=== PATIENT | female | born 1940 | race Caucasian/White ===

== ENCOUNTER 2022-04-18 20:51 | Emergency (ER) | payer OTHER ==
--- NOTE | 2022-04-18 21:54 | RAD REPORT ---
EXAM DESCRIPTION: RAD - Chest Single View - 04/18/2022 9:34 pm CLINICAL HISTORY: probable COVID COMPARISON: Two view chest 07/21/2020 TECHNIQUE: AP portable chest image was obtained 04/18/2022 9:34 pm . FINDINGS: Chronic interstitial lung disease is present. No focal mass or consolidation. Interstitial pattern is not substantially different from comparison. Heart and vasculature are normal. No measurable pleural effusion and no pneumothorax. No acute bony abnormality seen. No acute aortic findings suspected. IMPRESSION: No acute cardiopulmonary process. Chronic interstitial lung findings match comparison.
[2022-04-18 21:58] LABS: Absolute Lymphocytes (CBC) 1.5 K/uL (0.7-4.9); Hematocrit 41.7 % (36.0-45.0); Lymphocytes % 15.1 % (15.3-44.8); MCV 84.1 fL (80-100); RBC Red Blood Cell Count 4.96 M/uL (3.86-4.86)
[2022-04-18 22:16] LABS: Albumin 3.4 g/dL (3.4-5.0); Bilirubin Total 0.3 mg/dL (0.2-1.0); Potassium 3.3 mmol/L (3.5-5.1); Protein, Total 7.7 g/dL (6.4-8.2)
--- NOTE | 2022-04-18 23:52 | EDPHYS ---
Physician Documentation [facility] Name: Tara Gibson Age: 82 yrs Sex: Female : 1940 Arrival Date: 04/18/2022 Time: 20:52 Bed 4 Private MD: ED Physician Jose Rogers HPI: 04/18 21:21 This 82 yrs old Female presents to ER via EMS with complaints of rn nausea/vomiting/diarrhea. 21:21 The patient presents to the emergency department with nausea, vomiting, diarrhea. rn Onset: The symptoms/episode began/occurred 1 week(s) ago. Possible causes: sick contacts, by family. The symptoms are aggravated by nothing. The symptoms are alleviated by nothing. Associated signs and symptoms: Pertinent positives: diarrhea, fever, nausea, vomiting, Pertinent negatives: abdominal pain, GI bleeding. Severity of symptoms: At their worst the symptoms were moderate in the emergency department the symptoms are unchanged. The patient has not experienced similar symptoms in the past. The patient has not recently seen a physician. Pt reports thinks has COVID, family member recently here for COVID, now patient with nausea/vomiting/diarrhea, not able to keep anything down, + generalized weakness, no longer with fever. No sob. No chest pain.. Historical: - Home Meds: 21:14 amlodipine 10 mg tab 1 tab once daily [Active]; lisinopril-hydrochlorothiazide 10-12.5 kl mg Oral tab 1 tab once daily [Active]; metformin 500 mg Oral tab 1 tab 2 times per day [Active]; simvastatin 20 mg Oral tab 1 tab nightly [Active]; alprazolam 0.5 mg Oral tab 1 tab twice a day [Active]; Lorcet HD 10-325 mg Oral tab 1 tab every 6 hours [Active]; - PMHx: 21:14 Arthritis; Cancer, Breast; Diabetes - NIDDM; Back pain; High Cholesterol; Hypertension; kl - Immunization history:: Adult Immunizations up to date. - Social history:: Smoking status: Patient denies any tobacco usage or history of. - Family history:: not pertinent. - Hospitalizations: : No recent hospitalization is reported. ROS: 21:21 Constitutional: Negative for fever, chills, and weight loss, Eyes: Negative for injury, rn pain, redness, and discharge, ENT: Negative for injury, pain, and discharge, Neck: Negative for injury, pain, and swelling, Cardiovascular: Negative for chest pain, palpitations, and edema, Respiratory: Negative for shortness of breath, cough, wheezing, and pleuritic chest pain, Abdomen/GI: + nausea/vomiting/diarrhea, neg for abd pain Back: Negative for injury and pain, : Negative for injury, bleeding, discharge, and swelling, MS/Extremity: Negative for injury and deformity, Skin: Negative for injury, rash, and discoloration, Neuro: + generalized weakness, negative for focal weakness or numbness Exam: 21:21 Constitutional: This is a well developed, well nourished patient who is awake, alert, rn and in no acute distress. Head/Face: Normocephalic, atraumatic. Eyes: Periorbital areas with no swelling, redness, or edema. ENT: very dry MM Cardiovascular: Regular rate and rhythm. No pulse deficits. Respiratory: No increased work of breathing, no retractions or nasal flaring. Abdomen/GI: Soft, non-tender, no guarding or peritoneal signs. Skin: Warm, dry MS/ Extremity: Pulses equal, no cyanosis. Neuro: Awake and alert, GCS 15 Vital Signs: 21:00 BP 106 / 58; Pulse 82; Resp 18; Temp 98(O); Pulse Ox 98% on R/A; kl 22:26 BP 114 / 64; Pulse 100; Resp 20; Pulse Ox 95% on R/A; kl 04/19 00:05 BP 120 / 75; Pulse 82; Resp 16; Pulse Ox 95% ; kl 03:01 BP 100 / 66; Pulse 88; Resp 17; Pulse Ox 95% ; kl MDM: 04/18 20:52 Patient medically screened. rn 23:46 ED course: Pt improved, feels better, cxr clear, COVID +, no renal failure. No oxygen rn requirement. Plan is to give monoclonal antibodies and dc home, patient agrees and wants to go home.. 23:50 Differential diagnosis: viral gastroenteritis, gastroenteritis, COVID, dehydration. rn Data reviewed: vital signs, nurses notes, lab test result(s), radiologic studies, plain films, and as a result, I will discharge patient. Counseling: I had a detailed discussion with the patient and/or guardian regarding: the historical points, exam findings, and any diagnostic results supporting the discharge/admit diagnosis, lab results, radiology results, the need for outpatient follow up, to return to the emergency department if symptoms worsen or persist or if there are any questions or concerns that arise at home. Response to treatment: the patient's symptoms have markedly improved after treatment, and as a result, I will discharge patient. Special discussion: I discussed with the patient/guardian in detail that at this point there is no indication for admission to the hospital. It is understood, however, that if the symptoms persist or worsen the patient needs to return immediately for re-evaluation. 04/18 20:53 Order name: SARS-COV-2 RT PCR (Document "Date of Onset" if Symptomatic); Complete Time: rn 23:41 04/18 20:53 Order name: CBC with Diff; Complete Time: 22:19 rn 04/18 20:53 Order name: CMP; Complete Time: 22: rn 04/18 20:53 Order name: Lipase; Complete Time: 22:19 rn 04/18 20:53 Order name: XRAY Chest (1 view); Complete Time: 22:00 rn 04/18 20:53 Order name: IV Saline Lock; Complete Time: 01: rn 04/18 20:53 Order name: Labs collected and sent; Complete Time: : rn 04/18 20:53 Order name: Urine Dipstick-Ancillary (obtain specimen) rn Administered Medications: 21:16 Drug: NS 0.9% 1000 ml Route: IV; Rate: 1 bolus; Site: right antecubital; kl 21:40 Follow up: IV Status: Completed infusion; IV Intake: 1000ml kl 21:40 Drug: Zofran (Ondansetron) 4 mg Route: IVP; Site: right antecubital; kl 04/19 01:34 Drug: Bebtelovimab 175 mg Route: IV; Rate: calculated rate; Site: right antecubital; jb4 01:35 Follow up: IV Status: Completed infusion jb4 02:45 Follow up: Response: No adverse reaction jb4 Disposition Summary: 04/18/22 23:52 Discharge Ordered Location: Home rn Problem: an ongoing problem rn Symptoms: have improved rn Condition: Stable rn Diagnosis - SARS-associated coronavirus as the cause of diseases classified elsewhere rn - Dehydration rn Followup: rn - With: Private Physician - When: As needed - Reason: Recheck today's complaints, Re-evaluation by your physician Discharge Instructions: - Discharge Summary Sheet rn - Dehydration, Adult rn - COVID-19 rn - 10 Things You Can Do to Manage Your COVID-19 Symptoms at Home - [facility] rn - Viral Illness, Adult rn - Prevent the Spread of COVID-19 if You Are Sick - [facility] rn Forms: - Medication Reconciliation Form rn - Thank You Letter rn - Antibiotic harness repairer - Prescription Opioid Use rn Prescriptions: - ondansetron 4 mg Oral tablet,disintegrating - take 1 tablet by ORAL route every 8 hours As needed; 15 tablet; Refills: 0, rn Product Selection Permitted Signatures: Dispatcher [employer] Toya Vela RN Jose Main MD MD rn Bryson, James, RN RN jb4
--- NOTE | 2022-04-18 23:52 | ER ---
Nurse's Notes [facility] Name: Tara Gibson Age: 82 yrs Sex: Female : 1940 Arrival Date: 04/18/2022 Time: 20:52 Bed 4 Private MD: Diagnosis: SARS-associated coronavirus as the cause of diseases classified elsewhere;Dehydration Presentation: 04/18 21:00 Chief complaint: Patient states: nausea and vomiting x 3 days exposed to COVID x 1 week kl ago denies SOB. Coronavirus screen: Vaccine status: Patient reports receiving the 2nd dose of the covid vaccine. Client presents with at least one sign or symptom that may indicate coronavirus-19. Standard/surgical mask placed on the client. Provider contacted for isolation considerations. Ebola Screen: Patient negative for fever greater than or equal to 101.5 degrees Fahrenheit, and additional compatible Ebola Virus Disease symptoms. Initial Sepsis Screen: Does the patient meet any 2 criteria? No. Patient's initial sepsis screen is negative. Does the patient have a suspected source of infection? No. Patient's initial sepsis screen is negative. Risk Assessment: Do you want to hurt yourself or someone else? Patient reports no desire to harm self or others. Onset of symptoms was April 10, 2022. 21:00 Method Of Arrival: EMS: [facility] 21:00 Acuity: JESSICA 3 kl Triage Assessment: 21:00 General: Appears distressed, uncomfortable, Behavior is calm, cooperative. Pain: Denies kl pain. Historical: - Home Meds: 21:14 amlodipine 10 mg tab 1 tab once daily [Active]; lisinopril-hydrochlorothiazide 10-12.5 kl mg Oral tab 1 tab once daily [Active]; metformin 500 mg Oral tab 1 tab 2 times per day [Active]; simvastatin 20 mg Oral tab 1 tab nightly [Active]; alprazolam 0.5 mg Oral tab 1 tab twice a day [Active]; Lorcet HD 10-325 mg Oral tab 1 tab every 6 hours [Active]; - PMHx: 21:14 Arthritis; Cancer, Breast; Diabetes - NIDDM; Back pain; High Cholesterol; Hypertension; kl - Immunization history:: Adult Immunizations up to date. - Social history:: Smoking status: Patient denies any tobacco usage or history of. - Family history:: not pertinent. - Hospitalizations: : No recent hospitalization is reported. Screenin:31 Abuse screen: Denies threats or abuse. Nutritional screening: No deficits noted. kl Tuberculosis screening: No symptoms or risk factors identified. Fall Risk None identified. Assessment: 21:40 General: Appears uncomfortable, obese, Behavior is calm, cooperative. Pain: Denies pain. Neuro: No deficits noted. Berry Agitation-Sedation Scale (RASS): 0 - Alert and Calm Level of Consciousness is Oriented to person, place, time, situation. Cardiovascular: No deficits noted. Capillary refill < 3 seconds Rhythm is sinus rhythm. Respiratory: No deficits noted. Airway is patent Trachea midline Respiratory effort is even, unlabored, Respiratory pattern is regular. GI: Bowel sounds present X 4 quads. Reports intolerance of fluids, intolerance of food, nausea, vomiting, since x 3 days. : No deficits noted. No signs and/or symptoms were reported regarding the genitourinary system. EENT: No deficits noted. No signs and/or symptoms were reported regarding the EENT system. Derm: No deficits noted. No signs and/or symptoms reported regarding the dermatologic system. Musculoskeletal: No deficits noted. Vital Signs: 21:00 BP 106 / 58; Pulse 82; Resp 18; Temp 98(O); Pulse Ox 98% on R/A; kl 22:26 BP 114 / 64; Pulse 100; Resp 20; Pulse Ox 95% on R/A; kl 04/19 00:05 BP 120 / 75; Pulse 82; Resp 16; Pulse Ox 95% ; kl 03:01 BP 100 / 66; Pulse 88; Resp 17; Pulse Ox 95% ; ED Course: 04/18 20:52 Patient arrived in ED. rn 20:52 Jose Rogers MD is Attending Physician. rn 21:14 Triage completed. kl 21:36 XRAY Chest (1 view) In Process Unspecified. EDMS 21:42 CBC with Diff Sent. kl 21:42 CMP Sent. kl 21:42 Lipase Sent. kl 21:42 SARS-COV-2 RT PCR (Document "Date of Onset" if Symptomatic) Sent. kl 22:26 No apparent distress. Resting quietly. 04/19 02:59 No provider procedures requiring assistance completed. IV discontinued, intact, kl bleeding controlled, No redness/swelling at site. Pressure dressing applied. 02:59 Patient has correct armband on for positive identification. kl Administered Medications: 04/18 21:16 Drug: NS 0.9% 1000 ml Route: IV; Rate: 1 bolus; Site: right antecubital; kl 21:40 Follow up: IV Status: Completed infusion; IV Intake: 1000ml kl 21:40 Drug: Zofran (Ondansetron) 4 mg Route: IVP; Site: right antecubital; kl 04/19 01:34 Drug: Bebtelovimab 175 mg Route: IV; Rate: calculated rate; Site: right antecubital; jb4 01:35 Follow up: IV Status: Completed infusion jb4 02:45 Follow up: Response: No adverse reaction jb4 Intake: 04/18 21:40 IV: 1000ml; Total: 1000ml. daniel Outcome: 23:52 Discharge ordered by . tanner 04/19 03:02 Patient left the ED. Signatures: Dispatcher [employer] EDToya Valentine RN RN kl Nieto, Roman, MD MD rn Bryson, James, RN RN jb4 Corrections: (The following items were deleted from the chart) 04/18 22:31 22:27 General: Appears daniel sanchez
[2022-04-19] MEDS ORDERED: BEBTELOVIMAB 175 MG/2 ML VIAL IV ONE (01:11)
[2022-04-19 06:09] VITALS: TEMP 98
[2022-04-19 06:11] VITALS: O2SAT 95
[2022-04-19 06:28] VITALS: BP 100/66
== END 2022-04-19 03:02 | disposition home or self-care (01) ==
LOC: ER 20:51
DX: U07.1 COVID-19 (principal); E86.0 Dehydration; E11.9 Type 2 diabetes mellitus without complications; I10 Essential (primary) hypertension; Z85.3 Personal history of malignant neoplasm of breast
CPT/HCPCS: 85025; 36415; 83690; 80053; 71045; U0003; 96374; 96375; 99284

== ENCOUNTER 2023-07-21 11:09 | Inpatient (IN) | payer OTHER ==
--- OUTSIDE RECORDS SUMMARY | 2023-07-21 11:12 | XMS REPORT | Continuity of Care Document ---
:1940 Author Organization [facility] t Address [address] [place] [id number] Care Team Providers Name Role Phone [email or web address] Attending Clinician Unavailable CRISTIAN PORTILLO Attending Clinician Unavailable [email or web address] Admitting Clinician Unavailable CRISTIAN PORTILLO Admitting Clinician Unavailable Payers Payer Name Policy Type Policy Number Effective Date Expiration Date S carrie [employer] - MEDICARE [id number] COMPLETE (MEDICARE REPLACEMENT HMO) Problems This patient has no known problems. Allergies, Adverse Reactions, Alerts This patient has no known allergies or adverse reactions. Medications This patient has no known medications. Procedures This patient has no known procedures. Encounters Start End Encounter Admission Attending Care Care Encounter Source Date/Time Date/Time Type Type Clinicians Facility Department ID 2023-07-21 2023-07-21 Outpatient [email or web address] PRIV PRIV [id number] [facility] 00:00:00 00:00:00 diyala_S [id number] Malia [facility]wood 2017-03-18 2017-05-04 Outpatient C PORTILLO, C PT [id number] [facility] 14:00:00 23:59:00 CRISTIAN Carlton [facility] Results This patient has no known results.
[2023-07-21 11:30] LABS: Absolute Lymphocytes (CBC) 1.4 K/uL (0.7-4.9); Hematocrit 40.3 % (36.0-45.0); Lymphocytes % 18.9 % (15.3-44.8); MPV 9.6 fL (7.6-11.3); Platelets 222 thou/uL (152-406); RBC Red Blood Cell Count 4.64 M/uL (3.86-4.86)
[2023-07-21] MEDS ORDERED: NA CHLORIDE 0.9% 500 ML ONE (11:32)
[2023-07-21 11:35] LABS: Protime INR 1.01
[2023-07-21 11:51] LABS: Magnesium 1.7 mg/dL (1.6-2.4); Potassium 4.1 mEq/L (3.5-5.1)
--- NOTE | 2023-07-21 11:57 | RAD REPORT ---
EXAM DESCRIPTION: Horacio Single View07/21/2023 11:47 am CLINICAL HISTORY: Chest pain COMPARISON: 2020 FINDINGS: The lungs appear clear of acute infiltrate. The heart is normal size IMPRESSION: No acute abnormalities displayed
--- NOTE | 2023-07-21 12:23 | EDPHYS ---
Physician Documentation [facility] Name: Tara Gibson Age: 83 yrs Sex: Female : 1940 Arrival Date: 07/21/2023 Time: 11:09 Bed 5 Private MD: ED Physician Jose Rogers HPI: 07/21 11:12 This 83 yrs old Female presents to ER via Unassigned with complaints of heart pounding. rn 11:12 The patient presents with a history of heart racing. Context: The symptoms occur at rn rest, with light activity. Onset: The symptoms/episode began/occurred this morning. Duration: The patient or guardian reports multiple episodes. Modifying factors: The symptoms are aggravated by light activity, The symptoms are alleviated by rest. Severity of symptoms: At their worst the symptoms were moderate in the emergency department the symptoms have improved. The patient has experienced similar episodes in the past. The patient has not recently seen a physician. Patient reports palpitations and heart racing this morning associated with heaviness in the chest. No history of [place]. Has seen Dr. Hernández and told needed cardiac testing but has not had it done yet. Reports worse with exertion. EMS reports heart rate initially in the 140s to 180s but did not capture on EKG. Also report slight hypotension. Patient denies any blood in the stool. No current chest pain or shortness of breath or palpitations since arrival in ER.. Historical: - Allergies: 11:18 No Known Allergies; jl7 - Home Meds: 11:18 alprazolam 0.5 mg Oral tab 1 tab twice a day [Active]; amlodipine 10 mg tab 1 tab once jl7 daily [Active]; lisinopril-hydrochlorothiazide 10-12.5 mg Oral tab 1 tab once daily [Active]; metformin 500 mg Oral tab 1 tab 2 times per day [Active]; simvastatin 20 mg Oral tab 1 tab nightly [Active]; Lorcet HD 10-325 mg Oral tab 1 tab every 6 hours [Active]; - PMHx: 11:18 Arthritis; Back pain; Cancer; Diabetes - NIDDM; High Cholesterol; Hypertension; jl7 - PSHx: 12:09 left mastectomy; jl7 - Immunization history:: Adult Immunizations unknown. - Social history:: Smoking status: Patient denies any tobacco usage or history of. - Family history:: not pertinent. - Hospitalizations: : No recent hospitalization is reported. ROS: 11:12 Constitutional: Negative for fever, chills, and weight loss, Eyes: Negative for injury, rn pain, redness, and discharge, Neck: Negative for injury, pain, and swelling, Cardiovascular: Positive for chest pain/pressure and palpitations Respiratory: Positive for shortness of breath with exertion Abdomen/GI: Negative for abdominal pain, nausea, vomiting, diarrhea, and constipation, Back: Negative for injury and pain, MS/Extremity: Negative for injury and deformity, Skin: Negative for injury, rash, and discoloration, Neuro: Positive for generalized weakness and malaise Exam: 11:12 Constitutional: This is a well developed, well nourished patient who is awake, alert, rn and in no acute distress. Head/Face: Normocephalic, atraumatic. Cardiovascular: Regular rate and rhythm. No pulse deficits. Respiratory: No increased work of breathing, no retractions or nasal flaring. Abdomen/GI: Soft, non-tender Skin: Warm, dry MS/ Extremity: Pulses equal, no cyanosis. Neuro: Awake and alert, GCS 15 11:16 ECG was reviewed by the Attending Physician. rn Vital Signs: 11:16 BP 118 / 69; Pulse 53; Resp 17; Temp 97.4; Pulse Ox 97% ; Weight 89 kg; jl7 12:06 BP 118 / 69; Pulse 97; Resp 15; Pulse Ox 98% ; jl7 13:51 BP 111 / 55 RA; Pulse 74; Resp 17; Pulse Ox 97% ; ap3 14:30 BP 109 / 58; Pulse 79; Resp 15; Pulse Ox 96% ; jl7 15:00 BP 97 / 79; Pulse 74; Resp 15; Pulse Ox 94% on R/A; Pain 0/10; jl7 15:00 Pain Scale: Adult jl7 MDM: 11:11 Patient medically screened. rn 12:21 Differential diagnosis: arrythmia, dehydration, stress disorder, Arrhythmia, anxiety, rn CAD, congestive heart failure. Data reviewed: vital signs, nurses notes, lab test result(s), EKG, radiologic studies, plain films, and as a result, I will admit patient. Consideration of Admission/Observation Patient was admitted/placed on observation. Escalation of care including admission/observation considered. Management of patient was discussed with the following: Hospitalist: . Independent interpretation of the following test(s) in the Emergency Department EKG: See my EKG interpretation above X-Ray: My interpretation is Chest x-ray images negative for pleural effusion or pneumothorax per my interpretation. Historians other than the Patient: EMS: . Counseling: I had a detailed discussion with the patient and/or guardian regarding the historical points, exam findings, and any diagnostic results supporting the discharge/admit diagnosis, lab results, radiology results, the need for further work-up and treatment in the hospital. 07/21 11:11 Order name: Basic Metabolic Panel; Complete Time: 11:52 rn 07/21 11:11 Order name: CBC with Diff; Complete Time: 11:49 rn 07/21 11:11 Order name: Magnesium; Complete Time: : rn 07/21 11:11 Order name: NT PRO-BNP; Complete Time: : rn 07/21 11:11 Order name: PT-INR; Complete Time: :49 rn 07/21 11:11 Order name: Troponin HS; Complete Time: 11: rn 07/21 11:11 Order name: Urinalysis w/ reflexes; Complete Time: 13:11 rn 07/21 15:41 Order name: Troponin High Sensitivity; Complete Time: 17:09 EDMS 07/21 18:33 Order name: Glucose, Ancillary Testing EDTX 07/21 11:11 Order name: XRAY Chest (1 view); Complete Time: 12:08 rn 07/21 11:11 Order name: EKG; Complete Time: 11:12 rn 07/21 11:11 Order name: Cardiac monitoring; Complete Time: 11: rn 07/21 11:11 Order name: EKG - Nurse/Tech; Complete Time: : rn 07/21 11:11 Order name: IV Saline Lock; Complete Time: : rn 07/21 11:11 Order name: Labs collected and sent; Complete Time: 11:25 rn 07/21 11:11 Order name: O2 Per Protocol; Complete Time: : rn 07/21 11:11 Order name: O2 Sat Monitoring; Complete Time: 11:21 rn EC:16 Rate is 85 beats/min. Rhythm is regular. QRS Weiner is Normal. LA interval is normal. QRS rn interval is normal. QT interval is normal. No Q waves. T waves are Normal. No ST changes noted. Clinical impression: Normal ECG. Interpreted by me. Reviewed by me. Administered Medications: 11:25 Drug: NS 0.9% IV 500 ml IV at bolus once Route: IV; Rate: bolus; Site: right mb9 antecubital; 19:52 Follow up: Response: No adverse reaction; IV Status: Infusion continued upon admission; jw7 IV Intake: 300ml Disposition Summary: 07/21/23 12:22 Hospitalization Ordered Notes: Hospitalization Status: Observation rn Provider: Lauren Gilliland rn Condition: Stable rn Problem: an ongoing problem rn Symptoms: have improved rn Bed/Room Type: Standard rn Location: Telemetry/MedSurg (observation)(07/21/23 19:36) Room Assignment: [facility](07/21/23 19:37) Diagnosis - Chest pain, unspecified rn - Palpitations rn Forms: - Medication Reconciliation Form rn - SBAR form rn - Leadership Thank You Letter rn Signatures: Dispatcher [employer] EDToya Valentine RN Jose Main MD MD rn Attema, Lee, FACE PAINTER-C FACE PAINTER-Cla1 Ramon Day RN RN chase7 Verito Brothers RN RN Char Mooney RN jw7 Corrections: (The following items were deleted from the chart) 11:20 11:18 PMHx: Cancer; [email or web address] chase7 11:20 11:18 PMHx: Cancer; lindsey portillo 11:20 11:18 PMHx: Cancer; lindsey portillo 11:20 11:18 PMHx: Cancer, Breast; lindsey portillo 12:09 12:08 PSHx: Right mastectomy; lindsey stone7 15:31 12:22 Telemetry/MedSurg (observation) rn lindsey 15:31 12:22 rn lindsey 19:36 15:31 [facility] ER HOLD jlVirgie kl 19:36 15:31 ERHOLD- lindsey 19:37 19:[address] [place] [address]
--- NOTE | 2023-07-21 12:23 | ER ---
Nurse's Notes [facility] Name: Tara Gibson Age: 83 yrs Sex: Female : 1940 Arrival Date: 07/21/2023 Time: 11:09 Bed 5 Private MD: Diagnosis: Chest pain, unspecified;Palpitations Presentation: 07/21 11:16 Chief complaint: EMS states: Toned out for pounding chest, HR 130-180, hypotensive, jl7 gave 300 mL, BP increased. Coronavirus screen: At this time, the client does not indicate any symptoms associated with coronavirus-19. Ebola Screen: No symptoms or risks identified at this time. Initial Sepsis Screen: Does the patient meet any 2 criteria? No. Patient's initial sepsis screen is negative. Does the patient have a suspected source of infection? No. Patient's initial sepsis screen is negative. Risk Assessment: Do you want to hurt yourself or someone else? Patient reports no desire to harm self or others. Onset of symptoms was July 21, 2023. 11:16 Method Of Arrival: EMS: [facility] 7 11:16 Acuity: JESSICA 2 jl7 Triage Assessment: 11:18 General: Appears in no apparent distress. uncomfortable, Behavior is cooperative, jl7 anxious. Pain: Denies pain. Neuro: Level of Consciousness is awake, alert, obeys commands, Oriented to person, place, time, situation. Cardiovascular: Patient's skin is warm and dry. Rhythm is regular. Respiratory: Airway is patent Respiratory effort is even, unlabored, Respiratory pattern is regular, symmetrical. Derm: Skin is pink, warm \T\ dry. Historical: - Allergies: 11:18 No Known Allergies; jl7 - Home Meds: 11:18 alprazolam 0.5 mg Oral tab 1 tab twice a day [Active]; amlodipine 10 mg tab 1 tab once jl7 daily [Active]; lisinopril-hydrochlorothiazide 10-12.5 mg Oral tab 1 tab once daily [Active]; metformin 500 mg Oral tab 1 tab 2 times per day [Active]; simvastatin 20 mg Oral tab 1 tab nightly [Active]; Lorcet HD 10-325 mg Oral tab 1 tab every 6 hours [Active]; - PMHx: 11:18 Arthritis; Back pain; Cancer; Diabetes - NIDDM; High Cholesterol; Hypertension; jl7 - PSHx: 12:09 left mastectomy; jl7 - Immunization history:: Adult Immunizations unknown. - Social history:: Smoking status: Patient denies any tobacco usage or history of. - Family history:: not pertinent. - Hospitalizations: : No recent hospitalization is reported. Screenin:06 [facility] ED Fall Risk Assessment (Adult) Score/Fall Risk Level 3 or more points = High jl Risk Oriented to surroundings, Maintained a safe environment. Abuse screen: Denies threats or abuse. Denies injuries from another. Nutritional screening: No deficits noted. Tuberculosis screening: No symptoms or risk factors identified. Assessment: 12:00 Reassessment: Patient appears in no apparent distress at this time. No changes from jl7 previously documented assessment. Patient and/or family updated on plan of care and expected duration. Pain level reassessed. Patient is alert, oriented x 3, equal unlabored respirations, skin warm/dry/pink. 13:00 Reassessment: Patient appears in no apparent distress at this time. No changes from jl7 previously documented assessment. Patient and/or family updated on plan of care and expected duration. Pain level reassessed. Patient is alert, oriented x 3, equal unlabored respirations, skin warm/dry/pink. 14:00 Reassessment: Patient appears in no apparent distress at this time. No changes from jl7 previously documented assessment. Patient and/or family updated on plan of care and expected duration. Pain level reassessed. Patient is alert, oriented x 3, equal unlabored respirations, skin warm/dry/pink. 15:15 Reassessment: Pt put moved into hospital bed and room changed to ER 5. jl7 19:30 Reassessment: Patient appears in no apparent distress at this time. Patient and/or jw7 family updated on plan of care and expected duration. Pain level reassessed. Patient is alert, oriented x 3, equal unlabored respirations, skin warm/dry/pink. Patient denies pain at this time. Patient states symptoms have improved. 19:52 General: attempted to call report, Nurse will call back. jw7 19:59 General: Report given to MARIO Villavicencio. 7 Vital Signs: 11:16 BP 118 / 69; Pulse 53; Resp 17; Temp 97.4; Pulse Ox 97% ; Weight 89 kg; jl7 12:06 BP 118 / 69; Pulse 97; Resp 15; Pulse Ox 98% ; jl7 13:51 BP 111 / 55 RA; Pulse 74; Resp 17; Pulse Ox 97% ; ap3 14:30 BP 109 / 58; Pulse 79; Resp 15; Pulse Ox 96% ; jl7 15:00 BP 97 / 79; Pulse 74; Resp 15; Pulse Ox 94% on R/A; Pain 0/10; jl7 15:00 Pain Scale: Adult jl7 ED Course: 11:10 Patient arrived in ED. rn 11:11 Jose Rogers MD is Attending Physician. rn 11:15 Patient has correct armband on for positive identification. Placed in gown. Bed in low jl7 position. Call light in reach. Side rails up X2. 11:15 Provided Education on: use of call kumar. Client placed on continuous cardiac and pulse jl7 oximetry monitoring. NIBP monitoring applied. Warm blanket given. 11:15 Maintain EMS IV. Dressing intact. Good blood return noted. Site clean \T\ dry. Gauge \T\ jl 7 site: 20 G right AC. Patient maintains SpO2 saturation greater than 95% on room air. 11:16 Ramon Day RN is Primary Nurse. jl7 11:18 Triage completed. jl7 11:18 Arm band placed on right wrist. EKG completed in triage. Results shown to MD. jl7 11:25 Basic Metabolic Panel Sent. mb9 11:25 CBC with Diff Sent. mb9 11:25 Magnesium Sent. mb9 11:25 NT PRO-BNP Sent. mb9 11:25 PT-INR Sent. mb9 11:25 Troponin HS Sent. mb9 11:49 XRAY Chest (1 view) In Process Unspecified. EDMS 12:22 Lauren Gilliland MD is Hospitalizing Provider. rn 12:27 Urine collected: straight cath specimen, clear. Straight cath inserted, using sterile jl7 technique, 14 Fr. Specimen obtained. Returned clear yellow urine. Patient tolerated well. 15:30 No provider procedures requiring assistance completed. Patient admitted, IV remains in jl7 place. intact, No redness/swelling at site. Administered Medications: 11:25 Drug: NS 0.9% IV 500 ml IV at bolus once Route: IV; Rate: bolus; Site: right mb9 antecubital; 19:52 Follow up: Response: No adverse reaction; IV Status: Infusion continued upon admission; jw7 IV Intake: 300ml Medication: 12:06 VIS not applicable for this client. jl7 Intake: 19:52 IV: 300ml; Total: 300ml. jw7 Outcome: 12:22 Decision to Hospitalize by Provider. rn 15:30 Admitted to ER Hold. Please see [facility] for further documentation. jl7 15:30 Condition: stable 15:30 Discharge instructions given to patient, Instructed on the need for admit, Demonstrated understanding of instructions, 20:02 Patient left the ED. jw7 Signatures: Dispatcher [employer] EDMS Jose Rogers MD MD rn Leal, Jahala, RN RN jlGeorgette Sherman RN RN Char Matta RN RN jwVerito Muonz RN RN mb9 Corrections: (The following items were deleted from the chart) 11:20 11:18 PMHx: Cancer; jl7 jl7 11:20 11:18 PMHx: Cancer; jl7 jl7 11:20 11:18 PMHx: Cancer; jl7 jl7 11:20 11:18 PMHx: Cancer, Breast; jl7 jl7 12:09 12:08 PSHx: Right mastectomy; jl7 jl7
[2023-07-21 12:38] LABS: Specific Gravity 1.007 (1.005-1.030); Urine Bilirubin NEGATIVE (Negative); Urine Blood Negative (Negative); Urine Clarity Clear (Clear); Urine Color Colorless (Yellow); Urine Glucose NEGATIVE (Negative); Urine Protein NEGATIVE (Negative); Urine Urobilinogen Normal (Normal); Urine pH 6.5 (5.0-7.0)
--- NOTE | 2023-07-21 12:39 | P.HP ---
Certification for Inpatient Patient admitted to: Observation With expected LOS: <2 Midnights Patient will require the following post-hospital care: None Practitioner: I am a practitioner with admitting privileges, knowledge of patient current condition, hospital course, and medical plan of care. Services: Services provided to patient in accordance with Admission requirements found in Title 42 Section 412.3 of the Code of Federal Regulations Patient History Date of Service: 07/21/23 Reason for admission: chest pain, papitations History of Present Illness: 83-year-old female with a past medical history vertigo, hypertension, diabetes, hyperlipidemia, back pain, arthritis, presents to the emergency room via EMS for palpitations. Reports symptoms started over last 2-3 weeks, chest pain, palpitatins worse with exertion, described as chest pressure, substernal, non radiation, no reported NV. She denies history of fever, cough, edema, dizziness, nausea vomiting diarrhea. She denies history of [place], reports seen Dr. Hernández for cardiology. She reports she need procedure by Dr. Hernández, but could not remember the name. She reports chronic vertigo, ambulates with rollator. she denies recent syncopal episode or fall. EMS reported heart rate 140s to 180s, current vital signs improvedBP 118 / 69; Pulse 97; Resp 15; Pulse Ox 98% EKG Rate is 85 beats/min. Rhythm is regular. QRS [place] is Normal. PA interval is normal. QRS interval is normal. QT interval is normal. No Q waves. T waves are Normal. No STchanges noted. Clinical impression: Normal ECG plan to admit for chest pain, palpitations, laboratory evaluation CBC unremarkable, mild hyponatremia 130 potassium stable at 4.1, troponin normal at 19.0 BNP elevated at 1397, UA negative, chest x-ray no acute abnormalities Allergies diphenhydramine [From Benadryl] Allergy (Verified 07/21/20 14:33) Nausea/Vomiting Home Medications: Amlodipine [Norvasc*] 5 mg PO DAILY 12/10/14 Hydrocodone Bit/Acetaminophen [Hydrocodon-Acetaminophn 10-325] 10 mg PO Q6H PRN 12/10/14 Lisinopril/Hydrochlorothiazide [Zestoretic 10-12.5 mg Tablet] 10 - 12.5 mg PO DAILY 12/10/14 Metformin HCl [Glucophage*] 500 mg PO BID 12/10/14 Simvastatin [Zocor*] 10 mg PO DAILY 12/10/14 Alprazolam [Alprazolam ER] 1 mg PO PRN PRN 07/21/20 Aspirin Chewable [Aspirin Chewable*] 81 mg PO DAILY 07/21/20 Docusate Sodium [Stool Softener] 100 mg PO DAILY 07/21/20 - Past Medical/Surgical History Diabetic: Yes -: HTN -: NIDDM -: breast cancer -: eye surgery -: l mastectomy -: bronken wrist -: rotater cuff surgery -: hystertectomy. - Social History Alcohol use: No CD- Drugs: No Caffeine use: Yes Place of Residence: Home Review of Systems 10-point ROS is otherwise unremarkable Physical Examination - Physical Exam General: Alert, In no apparent distress, Oriented x3 HEENT: Atraumatic, Normocephalic, PERRLA Neck: Supple, 2+ carotid pulse no bruit, JVD not distended Respiratory: Clear to auscultation bilaterally, Normal air movement Cardiovascular: No edema, Normal pulses, Regular rate/rhythm, Normal S1 S2 Capillary refill: <2 Seconds Gastrointestinal: Normal bowel sounds, Soft and benign Integumentary: No rashes, No breakdown Neurological: Normal speech, Normal strength at 5/5 x4 extr - Studies Laboratory Data (last 24 hrs) 07/21/23 07/21/23 07/21/23 11:24 11:24 11:24 WBC 7.40 Hgb 13.6 Hct 40.3 Plt Count 222 PT 11.1 INR 1.01 Sodium 130 L Potassium 4.1 BUN 11 Creatinine 0.93 Glucose 111 H Magnesium 1.7 Assessment and Plan - Plan Assessment/Plan Chest pain acute Palpitations acute elevated BNP acute card consult, echo ordered Hypotensive bp 90's, tele trend trop, bnp Rhythm is regular. QRS [place] is Normal. PA interval is normal. QRS interval is normal. QT interval is normal. No Q waves. T waves are Normal. No STchanges noted. Clinical impression: Normal ECG CBC unremarkable,, troponin normal at 19.0 BNP elevated at 1397, UA negative, chest x-ray no acute abnormalities Daily wt, IO vertigo fall precuations orhto vs NIDDM ACHS BG, SSI hyponatremia NA 130 Diet Card, NPO after MN Full Code DVT Lovenox Discharge Plan: Home Plan to discharge in: 24 Hours - Advance Directives Does patient have a Living Will: No Does patient have a Durable POA for Healthcare: No - Code Status/Comfort Care Code Status: Full Code Physician Review: Patient Assessed, Agree with Above Assessment and Plan Critical Care: No Time Spent Managing Pts Care (In Minutes): 50
[2023-07-21] MEDS ORDERED: ALPRAZOLAM 1 MG PO PRN (13:02)
[2023-07-21] MEDS ORDERED: ACETAMINOPHEN 500 MG TAB PO PRN (15:08)
[2023-07-21] MEDS: ENOXAPARIN 40 MG/0.4 ML SQ SCH (15:13)
[2023-07-21] MEDS: INSULIN REGULAR (HUMAN) 100 UNIT/ML SQ SCH ×2 (16:30→21:00)
[2023-07-21] MEDS ORDERED: ENOXAPARIN 40 MG/0.4 ML SQ ONE (18:49)
--- NOTE | 2023-07-21 19:39 | P.HP ---
Date of Service: 07/21/23 Chart has been reviewed. Case was discussed with nurse practitioner. Patient has been seen and examined. We will consult cardiology. Patient was scheduled for cardiac catheterization a couple of weeks ago but did not follow through. Patient has a history of aortic stenosis and almost 10 years ago it was to a moderate degree. This also needs to be monitored. Patient will get cardiology consultation and we will keep patient n.p.o. after midnight. Patient will be admitted for unstable angina. Continue with antiplatelet therapy, statin therapy, strict blood pressure control, and anticoagulation.
[2023-07-21] MEDS: ATORVASTATIN 10 MG TAB PO SCH (21:54)
[2023-07-22] MEDS ORDERED: METOPROLOL TAR 25 MG TAB PO ONE (03:56)
[2023-07-22] MEDS ORDERED: MORPHINE 2 MG/ML SYR IV ONE (03:58)
[2023-07-22] MEDS: INSULIN REGULAR (HUMAN) 100 UNIT/ML SQ SCH ×4 (07:30→21:00)
[2023-07-22] MEDS: ASPIRIN 81 MG CHEWABLE TABLET PO SCH (08:57)
[2023-07-22] MEDS: AMLODIPINE 5 MG TAB PO SCH (08:57)
[2023-07-22] MEDS: ENOXAPARIN 40 MG/0.4 ML SQ SCH (09:06)
[2023-07-22] MEDS ORDERED: ENOXAPARIN 40 MG/0.4 ML SQ ONE (09:14)
[2023-07-22 10:42] LABS: Absolute Lymphocytes (CBC) 1.9 K/uL (0.7-4.9); Hematocrit 41.8 % (36.0-45.0); MCV 87.1 fL (80-100); MPV 9.5 fL (7.6-11.3); Platelets 224 thou/uL (152-406)
[2023-07-22 10:59] LABS: Phosphorus 3.4 mg/dL (2.5-4.9); Potassium 4.1 mEq/L (3.5-5.1)
[2023-07-22] MEDS: FUROSEMIDE 40 MG/4 ML VIAL IV SCH ×2 (11:09→17:18)
--- NOTE | 2023-07-22 14:57 | P.PN ---
Subjective Date of Service: 07/22/23 Chief Complaint: chest pain, papitations Subjective: Doing well reported an episode of palpitations, relieved with nitro overnight, no reported chest pain. Review of Systems 10-point ROS is otherwise unremarkable Physical Examination - Vital Signs Temperature: 97.3 F Blood Pressure: 129/66 Pulse: 50 Respirations: 16 Pulse Ox (%): 96 - Physical Exam General: Alert, In no apparent distress, Oriented x3 HEENT: Atraumatic, Normocephalic, PERRLA Neck: Supple, 2+ carotid pulse no bruit, JVD not distended Respiratory: Clear to auscultation bilaterally, Normal air movement Cardiovascular: No edema, Normal pulses, Regular rate/rhythm Capillary refill: <2 Seconds Gastrointestinal: Normal bowel sounds, Soft and benign Musculoskeletal: No clubbing, No swelling Integumentary: No rashes, No breakdown Neurological: Normal speech, Normal strength at 5/5 x4 extr Assessment And Plan - Plan Assessment/Plan Chest pain acute Palpitations acute elevated BNP acute card consult, trend trop, bnp lasix ordered bid, Rhythm is regular. QRS [place] is Normal. MD interval is normal. QRS interval is normal. QT interval is normal. No Q waves. T waves are Normal. No STchanges noted. Clinical impression: Normal ECG CBC unremarkable,, troponin normal at 19.0 BNP elevated at 1397, UA negative, chest x-ray no acute abnormalities Daily wt, IO vertigo fall precuations orhto vs NIDDM ACHS BG, SSI hyponatremia NA 130 Diet Card, NPO after MN Full Code DVT Lovenox Discharge Plan: Home Plan to discharge in: 48 Hours Physician Review: Patient Assessed, Agree with Above Assessment and Plan Critical Care: No Time Spent Managing PTS Care (In Minutes): 35
[2023-07-22] MEDS: METOPROLOL TAR 25 MG TAB PO SCH (17:18)
[2023-07-22] MEDS: ATORVASTATIN 10 MG TAB PO SCH (20:00)
--- NOTE | 2023-07-22 20:46 | CON ---
Date of Consultation: 07/22/2023 Reason For Consultation: Chest pain. History Of Present Illness: 83-year-old female, history of hypertension, diabetes, dyslipidemia, aor tic valve stenosis, presented with chest pain for the past 3 to 4 weeks along with palpitation. She lives alone and she gets scared and she cannot take care of herself at home anymore, so she gets frig htened. She presented to the emergency room and the last time she had chest pain was earlier this mo rning. Cardiac enzymes have been negative. Past Medical History: As outlined above in the HPI. Medications: Refer to reconciliation sheet for detailed list. Allergies: DIPHENHYDRAMINE. Family History: No premature coronary artery disease or cancer. Social History: She does not smoke or drink. Does not use any drugs. Review of Systems: All systems reviewed and they were negative except as mentioned in the HPI. Physical Examination: Vital Signs: Reviewed. Head and Neck: Pupils are equal, reactive to light. Intact eye movements. No JVD. No cervical lym phadenopathy. Neck is supple. Thyroid is not enlarged. Lungs: Clear to auscultation bilaterally. No rhonchi, wheezing, or crackles. No accessory muscle u se. Heart: Irregular with a loud ejection systolic murmur in the aortic area. Abdomen: Soft, nontender. Bowel sounds positive. No organomegaly. No masses or hernia. No rigidi ty or rebound. Extremities: Trace edema. No clubbing or cyanosis. Intact pulses. Skin: No rash or nodule. Neurologic: Alert, awake, oriented x3. No acute focal deficits appreciated. Investigations: BUN 11, creatinine 0.76, and cardiac enzymes are negative and hemoglobin is 14.7. E cho showed severe aortic valve stenosis with mean gradient above 52 mmHg. Assessment And Recommendations: 1.Chest pain. Cardiac enzymes are negative. She has severe aortic valve stenosis, probably the cau se of her chest pain, but this patient needs aortic valve replaced and we will plan for transcatheter approach. At this point, I will plan to do a coronary angiogram on her while she is in the hospital and I recommend to get secondary social studies teacher involved for her situation at home. She is not able to take ca re of herself and we will plan for the actual valve replacement when the workup is complete, which in cludes cardiac CT angiogram, which will be done at the facility where the valve replacement will take place. 2.Severe aortic valve stenosis, again as outlined above. Plan for coronary angiogram in preparation for TAVR. 3.Congestive heart failure. She appears to be doing clinically well. I will switch her Lasix to or al at 40 mg p.o. daily. SR/MODL Voice ID: [id number] Report ID: [id number]
[2023-07-23 05:00] VITALS: BMI 35.9
[2023-07-23] MEDS: METOPROLOL TAR 25 MG TAB PO SCH ×2 (05:24→18:51)
[2023-07-23] MEDS: INSULIN REGULAR (HUMAN) 100 UNIT/ML SQ SCH ×4 (07:30→21:00)
--- NOTE | 2023-07-23 08:50 | ECHO ---
HEIGHT: 5 ft 2 in WEIGHT: 196 lb 3.2 oz DATE OF STUDY: 07/22/[address]: Leticia Brito 2-DIMENSIONAL: YES M.MODE: YES DOPPLER: YES COLOR FLOW: YES TDS: PORTABLE: YES DEFINITY: BUBBLE STUDY: DIAGNOSIS: ELEVETED BNP CARDIAC HISTORY: CATHERIZATION: SURGERY: PROSTHETIC VALVE: PACEMAKER: MEASUREMENTS (cm) DIASTOLIC (NORMALS) SYSTOLIC (NORMALS) IVSd 1.1 (0.6-1.2) LA Diam 3.2 (1.9-4.0) LVEF 62% LVIDd 3.5 (3.5-5.7) LVIDs 2.4 (2.0-3.5) %FS 32% LVPWd 1.2 (0.6-1.2) Ao Diam 2.8 (2.0-3.7) 2 DIMENSIONAL ASSESSMENT: RIGHT ATRIUM: NORMAL LEFT ATRIUM: NORMAL RIGHT VENTRICLE: NORMAL LEFT VENTRICLE: LEFT VENTRICULAR HYPERTROPHY TRICUSPID VALVE: MILD TRICUSPID REGURGITATION MITRAL VALVE: CALCIFIED MITRAL VALVE PULMONIC VALVE: NORMAL AORTIC VALVE: HEAVILY CALCIFIED AORTIC VALVE PERICARDIAL EFFUSION: NONE AORTIC ROOT: NORMAL LEFT VENTRICULAR WALL MOTION: NORMAL DOPPLER/COLOR FLOW: SEE BELOW COMMENTS: 1. NORMAL LEFT VENTRICULAR EJECTION FRACTION 60-65% WITH NORMAL WALL MOTION 2. MILD CONCENTRIC LEFT VENTRICULAR HYPERTROPHY 3. SEVERE AORTIC VALVE STENOSIS WITH MEAN GRADIENT OF 53 mmHg 4. MILD MITRAL REGURGITATION 5. GRADE I DIASTOLIC DYSFUNCTION TECHNOLOGIST: RAVI HELLER
[2023-07-23] MEDS: ENOXAPARIN 40 MG/0.4 ML SQ SCH (09:00)
--- NOTE | 2023-07-23 09:54 | P.DS ---
Admission Date: 07/24/23 Discharge Date: 07/25/23 Disposition: ROUTINE DISCHARGE Discharge Condition: FAIR Reason for Admission: chest pain, papitations Consultations: Dr. Hernández cardiology - Problems (1) Chest pain Current Visit: Yes Status: Acute (2) Palpitations Current Visit: Yes Status: Acute Brief History of Present Illness: 83-year-old female with a past medical history vertigo, hypertension, diabetes, hyperlipidemia, back pain, arthritis, presents to the emergency room via EMS for palpitations. Reports symptoms started over last 2-3 weeks, chest pain, palpitatins worse with exertion, described as chest pressure, substernal, non ra diation, no reported NV. She denies history of fever, cough, edema, dizziness, nausea vomiting diarrhea. She denies history of [place], reports seen Dr. Hernández for cardiology. She reports she need procedure by Dr. Hernández, but could not remember the name. She reports chronic vertigo, ambulates with rollator. she denies recent syncopal episode or fall. EMS reported heart rate 140s to 180s, current vital signs improvedBP 118 / 69; Pulse 97; Resp 15; Pulse Ox 98% EKG Rate is 85 beats/min. Rhythm is regular. QRS [place] is Normal. ID interval is normal. QRS interval is normal. QT interval is normal. No Q waves. T waves are Normal. No STchanges noted. Clinical impression: Normal ECG . Admitted admit for chest pain, palpitations. Laboratory evaluation CBC unremarkable, mild hyponatremia 130 potassium stable at 4.1, troponin normal at 19.0 BNP elevated at 1397, UA negative, chest x-ray no acute abnormalities - Physical Exam General: Alert, In no apparent distress, Oriented x3 HEENT: Atraumatic, Normocephalic Neck: Supple, 2+ carotid pulse no bruit Respiratory: Clear to auscultation bilaterally, Normal air movement Cardiovascular: No edema, Normal pulses, Regular rate/rhythm Capillary refill: <2 Seconds Gastrointestinal: Normal bowel sounds, Soft and benign Musculoskeletal: No clubbing, No swelling Integumentary: No rashes, No breakdown Neurological: Normal speech, Normal strength at 5/5 x4 extr, Normal affect Hospital Course: Patient admitted with chest pain, palpitations, had elevated BNP on arrival to emergency department. Troponins were normal, BNP elevated 1397, Lasix IV given twice daily. Patient will discharge with p.o. metoprolol twice daily has new prescription. Patient needs to monitor blood pressure hold if systolic blood pressure less than 110. Patient needs to follow-up with cardiology in 7 to 10 days after discharge. Resume home medications. Echocardiogram ordered while inpatient. Ejection fraction normal 60 to 65%.MILD, findings of left ventricular hyper per [place], severe aortic valve stenosis, mild mitral grade regurgitation, grade 1 diastolic dysfunction. Tolerating cardiac p.o. diet ambulating independently. Cardiology post [facility] Chest pain. Cardiac enzymes are negative. She has severe aortic valve stenosis, probably the cause of her chest pain, but this patient needs aortic valve replaced Per Cardiology, Severe aortic valve stenosis, again as outlined above. Plan for coronary angiogram in future preparation for TAVR., Congestive heart failure. Per Cardiology for discharge plan. Vital Signs/Physical Exam: Temp Pulse Resp BP Pulse Ox 97.1 F 81 17 121/66 96 07/23/23 08:00 07/23/23 08:00 07/23/23 08:00 07/23/23 08:00 07/23/23 08:00 General: Alert, In no apparent distress, Oriented x3 HEENT: Atraumatic, Normocephalic, PERRLA Neck: Supple, 2+ carotid pulse no bruit, JVD not distended Respiratory: Clear to auscultation bilaterally, Normal air movement Cardiovascular: No edema, Normal pulses, Regular rate/rhythm Capillary refill: <2 Seconds Gastrointestinal: Normal bowel sounds, Soft and benign Musculoskeletal: No clubbing, No swelling Integumentary: No rashes, No breakdown Neurological: Normal gait, Normal speech, Normal strength at 5/5 x4 extr Laboratory Data at Discharge: WBC 8.80 thou/uL (4.3-10.9) 07/22/23 10:22 Hgb 14.7 g/dL (12.0-15.0) D 07/22/23 10:22 Hct 41.8 % (36.0-45.0) 07/22/23 10:22 Plt Count 224 thou/uL (152-406) 07/22/23 10:22 PT 11.1 SECONDS (9.5-12.5) 07/21/23 11:24 INR 1.01 07/21/23 11:24 Sodium 131 mEq/L (136-145) L 07/22/23 10:27 Potassium 4.1 mEq/L (3.5-5.1) 07/22/23 10:27 BUN 11 mg/dL (7-18) 07/22/23 10:27 Creatinine 0.76 mg/dL (0.55-1.02) 07/22/23 10:27 Glucose 107 mg/dL (74-106) H 07/22/23 10:27 Phosphorus 3.4 mg/dL (2.5-4.9) 07/22/23 10:27 Magnesium 2.0 mg/dL (1.6-2.4) 07/22/23 10:27 Home Medications: Amlodipine [Norvasc*] 5 mg PO DAILY 12/10/14 Hydrocodone Bit/Acetaminophen [Hydrocodon-Acetaminophn 10-325] 10 mg PO Q6H PRN 12/10/14 Lisinopril/Hydrochlorothiazide [Zestoretic 10-12.5 mg Tablet] 10 - 12.5 mg PO DAILY 12/10/14 Metformin HCl [Glucophage*] 500 mg PO BID 12/10/14 Simvastatin [Zocor*] 10 mg PO DAILY 12/10/14 Alprazolam [Alprazolam ER] 1 mg PO PRN PRN 07/21/20 Aspirin Chewable [Aspirin Chewable*] 81 mg PO DAILY 07/21/20 Docusate Sodium [Stool Softener] 100 mg PO DAILY 07/21/20 Metoprolol Tartrate [Lopressor*] 25 mg PO BID 6AM 6PM #60 tab 07/22/23 New Medications: Metoprolol Tartrate [Lopressor*] 25 mg PO BID 6AM 6PM #60 tab Physician Discharge Instructions: -DC IV and DC home if okay with cardiology -Follow-up with PCP in 1 to 2 weeks -Follow-up with Cardiology in 1 to 2 weeks -Please call Dr. Gilliland at [phone] if any questions regarding hospital stay -Please call nursing station at [phone] if any nursing or medication questions -Return to the emergency room if symptoms worsen Diet: AHA Activity: Fall precautions Followup: NONE,NONE [Primary Care Provider] -
[2023-07-23] MEDS: FUROSEMIDE 40 MG/4 ML VIAL IV SCH ×2 (12:53→18:50)
[2023-07-23] MEDS: AMLODIPINE 5 MG TAB PO SCH (12:54)
[2023-07-23] MEDS: ASPIRIN 81 MG CHEWABLE TABLET PO SCH (12:55)
[2023-07-23] MEDS: MECLIZINE HCL 12.5 MG TAB PO SCH ×2 (12:59→21:07)
--- NOTE | 2023-07-23 16:35 | P.PN ---
Subjective Date of Service: 07/23/23 Chief Complaint: chest pain, papitations Subjective: No new changes reported an episode of palpitations, relieved with nitro overnight, no reported chest pain. Review of Systems 10-point ROS is otherwise unremarkable Physical Examination - Vital Signs Temperature: 97.1 F Blood Pressure: 121/66 Pulse: 100 Respirations: 17 Pulse Ox (%): 96 - Physical Exam General: Alert, In no apparent distress, Oriented x3 HEENT: Atraumatic, Normocephalic Neck: Supple, 2+ carotid pulse no bruit Respiratory: Clear to auscultation bilaterally, Normal air movement Cardiovascular: No edema, Normal pulses, Regular rate/rhythm Capillary refill: <2 Seconds Gastrointestinal: Normal bowel sounds, Soft and benign Musculoskeletal: No clubbing, No swelling Integumentary: No rashes, No breakdown Neurological: Normal speech, Normal strength at 5/5 x4 extr, Normal affect Assessment And Plan - Plan Assessment/Plan Chest pain acute Palpitations acute elevated BNP acute card consult, trend trop, bnp lasix ordered bid, Rhythm is regular. QRS [place] is Normal. [place] interval is normal. QRS interval is normal. QT interval is normal. No Q waves. T waves are Normal. No STchanges noted. Clinical impression: Normal ECG CBC unremarkable,, troponin normal at 19.0 BNP elevated at 1397, UA negative, chest x-ray no acute abnormalities Daily wt, IO N.p.o. for cardiac cath in the a.m. vertigo fall precuations orhto vs NIDDM ACHS BG, SSI hyponatremia NA 130 Diet Card, NPO after [place] Full Code DVT Lovenox Discharge Plan: Home - Code Status/Comfort Care Code Status: Full Code Physician Review: Patient Assessed, Agree with Above Assessment and Plan Critical Care: No Time Spent Managing PTS Care (In Minutes): 35
--- NOTE | 2023-07-23 18:08 | EKG ---
Test Date: 2023-07-22 Test Time: 03:44:20 Plant Attendant: ANISH MEASUREMENT RESULTS: Intervals: Rate: 129 [place]: QRSD: 92 QT: 338 QTc: 495 [place]: P: [place]: QRS: -28 T: 88 INTERPRETIVE STATEMENTS: Atrial flutter with variable AV block Incomplete right bundle branch block ST depression, consider subendocardial injury or digitalis effect Nonspecific T wave abnormality Abnormal ECG Compared to ECG 07/21/2023 11:15:10 Incomplete right bundle-branch block now present ST (T wave) deviation now present T-wave abnormality now present Sinus rhythm no longer present Electronically Signed On 07-23-23 18:04:17 CDT by Ziyad Hernández
--- NOTE | 2023-07-23 18:08 | EKG ---
Test Date: 2023-07-21 Test Time: 11:15:10 Stemhole Borer: REMY MEASUREMENT RESULTS: Intervals: Rate: 85 FL: 134 QRSD: 92 QT: 368 QTc: 437 [place]: P: 85 FL: 134 QRS: 24 T: 58 INTERPRETIVE STATEMENTS: Normal sinus rhythm Normal ECG Compared to ECG 07/21/2020 14:56:45 Sinus arrhythmia no longer present Electronically Signed On 07-23-23 18:04:32 CDT by Ziyad Hernández
[2023-07-23] MEDS ORDERED: MECLIZINE HCL 12.5 MG TAB ONE (20:59)
[2023-07-23] MEDS ORDERED: ATORVASTATIN 10 MG TAB ONE (20:59)
[2023-07-23] MEDS: ATORVASTATIN 10 MG TAB PO SCH (21:07)
[2023-07-24] MEDS: METOPROLOL TAR 25 MG TAB PO SCH ×2 (05:48→17:20)
[2023-07-24] MEDS: INSULIN REGULAR (HUMAN) 100 UNIT/ML SQ SCH ×4 (07:30→21:00)
--- NOTE | 2023-07-24 08:50 | P.PN ---
Subjective Date of Service: 07/24/23 Chief Complaint: chest pain, papitations Subjective: No new changes, Improving reported an episode of palpitations, relieved with nitro overnight, no reported chest pain. Review of Systems 10-point ROS is otherwise unremarkable Physical Examination - Vital Signs Temperature: 97.1 F Blood Pressure: 108/57 Pulse: 73 Respirations: 18 Pulse Ox (%): 93 Assessment And Plan - Plan Assessment/Plan Chest pain acute Palpitations acute elevated BNP acute card consult, trend trop, bnp lasix ordered bid, Rhythm is regular. QRS [place] is Normal. [place] interval is normal. QRS interval is normal. QT interval is normal. No Q waves. T waves are Normal. No STchanges noted. Clinical impression: Normal ECG CBC unremarkable,, troponin normal at 19.0 BNP elevated at 1397, UA negative, chest x-ray no acute abnormalities Daily wt, IO N.p.o. for cardiac cath in the a.m. Cardiology post [facility] Chest pain. Cardiac enzymes are negative. She has severe aortic valve stenosis, probably the cause of her chest pain, but this patient needs aortic valve replaced and we will plan for transcatheter approach. She is not able to take care of herself and we will plan for the actual valve replacement when the workup is complete, which includes cardiac CT angiogram, which will be done at the facility where the valve replacement will take place. Severe aortic valve stenosis, again as outlined above. Plan for coronary angiog ghislaine in preparation for TAVR. Congestive heart failure. She appears to be doing clinically well. I will switch her Lasix to oral at 40 mg p.o. daily. vertigo fall precuations orhto vs NIDDM ACHS BG, SSI hyponatremia NA 130 Diet Card, NPO after [place] Full Code DVT Lovenox Discharge Plan: Home - Code Status/Comfort Care Code Status: Full Code Physician Review: Patient Assessed, Agree with Above Assessment and Plan Critical Care: No Time Spent Managing PTS Care (In Minutes): 35
[2023-07-24] MEDS: FUROSEMIDE 40 MG/4 ML VIAL IV SCH ×2 (09:00→17:18)
[2023-07-24] MEDS: ENOXAPARIN 40 MG/0.4 ML SQ SCH (09:00)
[2023-07-24] MEDS: MECLIZINE HCL 12.5 MG TAB PO SCH ×3 (09:00→21:02)
[2023-07-24] MEDS ORDERED: NA CHLORIDE 0.9% 500 ML ONE (11:42)
[2023-07-24] MEDS ORDERED: LIDOCAINE 1% 20 ML MDV ONE (11:44)
[2023-07-24] MEDS ORDERED: FENTANYL CITR 100 MCG/2 ML ONE (11:44)
[2023-07-24] MEDS ORDERED: HEPARIN 5000 UNIT/ML 1 ML VIAL ONE (11:45)
[2023-07-24] MEDS ORDERED: MIDAZOLAM HCL 2 MG/2 ML INJ ONE (11:45)
[2023-07-24] MEDS ORDERED: HEPARIN 10,000 UNIT/10 ML VIAL IV ONE (11:46)
[2023-07-24] MEDS ORDERED: VERAPAMIL HCL 10 MG/4 ML VIAL IV ONE (11:46)
[2023-07-24] MEDS ORDERED: NITROGLYCERIN/D5W 50 MG/250 ML BTL IV ONE (11:46)
[2023-07-24] MEDS ORDERED: NA CHLORIDE 0.9% 1,000 ML ONE (11:46)
[2023-07-24] MEDS: ASPIRIN 81 MG CHEWABLE TABLET PO SCH (15:39)
[2023-07-24] MEDS: AMLODIPINE 5 MG TAB PO SCH (15:40)
--- NOTE | 2023-07-24 15:50 | PN ---
Date of Progress Note: 07/23/2023 Subjective: Seen at bedside. Still getting on and off chest pain and shortness of breath with exert ion. Review of Systems: Positive chest pain and shortness of breath on exertion. No nausea, vomiting, diarrhea. No abdomina l pain. No dysuria, polyuria, or urinary urgency. All other systems reviewed are negative. Physical Examination: Vital Signs: Reviewed. Head and Neck: Pupils are equal, reactive to light. Intact eye movements. No JVD. No cervical lym phadenopathy. Neck is supple. Thyroid is not enlarged. Lungs: Clear to auscultation bilaterally. No rhonchi, wheezing, or crackles. No accessory muscle u se. Heart: Irregular with . Abdomen: Soft, nontender. Bowel sounds positive. No organomegaly. No masses or hernia. No rigidi ty or rebound. Extremities: No edema. No clubbing or cyanosis. Intact pulses. Skin: No rash or nodule. Neurologic: Alert, awake, oriented x3. No acute focal deficits appreciated. Investigations: Labs reviewed. Assessment And Recommendation: 1.Chest pain. Cardiac enzymes are negative. This could be still unstable angina. Plan for coronar y angiogram tomorrow. Keep n.p.o. past midnight. 2.Severe aortic valve stenosis. We will obtain coronary angiogram today in preparation for TAVR to be done in the future. 3.Congestive heart failure, euvolemic. Continue current management. SR/MODL Voice ID: [id number] Report ID: [id number]
--- NOTE | 2023-07-24 15:50 | PN ---
Date of Progress Note: 07/24/2023 Subjective: Seen at bedside. No new complaints today. Review of Systems: No chest pain, shortness of breath, orthopnea and cough. No nausea, vomiting, diarrhea. All other s ystems reviewed are negative. Physical Examination: Vital Signs: Reviewed. Head and Neck: Pupils are equal, reactive to light. Intact eye movements. No JVD. No cervical lym phadenopathy. Neck is supple. Thyroid is not enlarged. Lungs: Clear to auscultation bilaterally. No rhonchi, wheezing, or crackles. No accessory muscle u se. Heart: Regular with aortic systolic ejection murmur, late peaking. Abdomen: Soft, nontender. Bowel sounds positive. No organomegaly. No masses or hernia. No rigidi ty or rebound. Extremities: No edema clubbing, or cyanosis. Intact pulses. Skin: No rash or nodule. Neurologic: Alert, awake, oriented x3. No acute focal deficits appreciated. Investigations: Labs were reviewed. Assessment/recommendation: 1.Severe aortic valve stenosis. Mean gradient is about 50 mmHg. Needs valve replacement. Plan for coronary angiogram today. Plan accordingly. 2.Chest pain, unstable angina. Obtain coronary angiogram today. 3.Congestive heart failure. She is euvolemic and stable. SR/MODL Voice ID: [id number] Report ID: [id number]
--- NOTE | 2023-07-24 20:26 | OP ---
Date of Procedure: 07/24/2023 Surgeon: BOLIVAR JACOBSON Procedure Performed: Selective coronary angiogram. Indication: 1.Unstable angina. 2.Severe aortic valve stenosis before AVR. Access: Right femoral artery, 6-[place], closed with manual pressure. Complications: None. Bleeding: Less than 20 mL. Description Of Procedure: After risks, benefits, and alternatives were explained, the patient agreed to procedure and signed informed consent. The patient was brought into the cardiac catheterization laboratory, prepped and draped in the usual sterile fashion. Then, I accesses right femoral artery u sing micropuncture kit, ultrasound guidance, and fluoroscopy and placed a 6-[place] sheath, t ook 6-[place] JL3.5 catheter into the aortic root, engaged left main, took standard views, and exchang ed for a 6-[place] JR4 catheter, engaged the RCA, took standard views, and removed the catheter and th e sheath. Manual pressure was used for closure with good hemostasis. Findings: 1.Left main is large and normal. 2.LAD; large, proximal 10%. Normal diagonal branches. 3.Left circumflex; very small, nondominant, with luminal irregularities. 4.RCA; large and dominant with distal 30% stenosis. Conclusion: 1.Nonobstructive coronary artery disease. 2.Severe aortic valve stenosis. Plan: Proceed with TAVR. /MODL Voice ID: [id number] Report ID: [id number]
[2023-07-24] MEDS: ATORVASTATIN 10 MG TAB PO SCH (21:02)
[2023-07-24] MEDS: ONDANSETRON 4 MG/2 ML VIAL IV PRN (21:21)
[2023-07-25] MEDS: ONDANSETRON 4 MG/2 ML VIAL IV PRN ×3 (01:18→20:08)
[2023-07-25] MEDS: METOPROLOL TAR 25 MG TAB PO SCH ×2 (05:17→17:19)
--- NOTE | 2023-07-25 06:12 | P.PN ---
Subjective Date of Service: 07/25/23 Chief Complaint: chest pain, papitations Subjective: No new changes, Improving (post cardiac cath, no new complaints, right groin soft. surg dressing) Review of Systems 10-point ROS is otherwise unremarkable Physical Examination - Vital Signs Temperature: 97.5 F Blood Pressure: 100/45 Pulse: 72 Respirations: 16 Pulse Ox (%): 94 - Physical Exam General: Alert, In no apparent distress, Oriented x3 HEENT: Atraumatic, Normocephalic, PERRLA Neck: Supple, 2+ carotid pulse no bruit, JVD not distended Respiratory: Clear to auscultation bilaterally, Normal air movement Cardiovascular: No edema, Normal pulses, Other (Right groin dressing clean dry and intact soft, no hematoma) Gastrointestinal: Normal bowel sounds, Non-distended Musculoskeletal: No clubbing, No swelling Neurological: Normal speech, Normal strength at 5/5 x4 extr, Normal tone Assessment And Plan - Plan - Plan Assessment/Plan Chest pain acute Palpitations acute elevated BNP acute card consult, trend trop, bnp lasix ordered bid, Rhythm is regular. QRS [place] is Normal. [place] interval is normal. QRS interval is normal. QT interval is normal. No Q waves. T waves are Normal. No STchanges noted. Clinical impression: Normal ECG CBC unremarkable,, troponin normal at 19.0 BNP elevated at 1397, UA negative, chest x-ray no acute abnormalities Daily wt, IO N.p.o. for cardiac cath in the a.m. 07/24/23 Heart cath Indication: 1. Unstable angina.2. Severe aortic valve stenosis before AVR. onclusion: 1. Nonobstructive coronary artery disease. 2 cm. Wound nurse states patient go down a left heart cath 2. Severe aortic valve stenosis vertigo fall precuations orhto vs NIDDM ACHS BG, SSI hyponatremia NA 130 Diet Card, NPO after [place] Full Code DVT Lovenox Discharge Plan: Home - Code Status/Comfort Care Code Status: Full Code Physician Review: Patient Assessed, Agree with Above Assessment and Plan Critical Care: No Time Spent Managing PTS Care (In Minutes): 35 Discharge Plan: Home - Code Status/Comfort Care Code Status: Full Code Physician Review: Patient Assessed, Agree with Above Assessment and Plan Critical Care: No Time Spent Managing PTS Care (In Minutes): 35
[2023-07-25] MEDS: INSULIN REGULAR (HUMAN) 100 UNIT/ML SQ SCH ×4 (07:30→20:43)
[2023-07-25] MEDS ORDERED: DIGOXIN 0.25 MG/ML AMP IV ONE (08:01)
[2023-07-25 09:00] LABS: Absolute Lymphocytes (CBC) 2.9 K/uL (0.7-4.9); Hematocrit 46.5 % (36.0-45.0); MCV 86.6 fL (80-100); MPV 9.3 fL (7.6-11.3); Platelets 309 thou/uL (152-406); RBC Red Blood Cell Count 5.37 M/uL (3.86-4.86)
[2023-07-25 09:25] LABS: Albumin 3.7 g/dL (3.4-5.0); Bilirubin Total 0.5 mg/dL (0.2-1.0); Magnesium 1.6 mg/dL (1.6-2.4); Potassium 3.7 mEq/L (3.5-5.1); Protein, Total 8.4 g/dL (6.4-8.2); Thyroid Stimulating Hormone 1.15 uIU/mL (0.358-3.740)
[2023-07-25 09:28] LABS: Troponin High Sensitivity 107.6 pg/mL (<58.9)
--- NOTE | 2023-07-25 10:28 | P.PN ---
Subjective Date of Service: 07/25/23 Chief Complaint: chest pain, papitations Subjective: No new changes, No C/O voiced Review of Systems 10-point ROS is otherwise unremarkable Physical Examination - Vital Signs Temperature: 98.0 F Blood Pressure: 129/84 Pulse: 116 Respirations: 18 Pulse Ox (%): 92 Assessment And Plan - Plan - Plan Assessment/Plan Chest pain acute Palpitations acute elevated BNP acute card consult, trend trop, bnp lasix ordered bid, Rhythm is regular. QRS [place] is Normal. [place] interval is normal. QRS interval is normal. QT interval is normal. No Q waves. T waves are Normal. No STchanges noted. Clinical impression: Normal ECG CBC unremarkable,, troponin normal at 19.0 BNP elevated at 1397, UA negative, chest x-ray no acute abnormalities Daily wt, IO N.p.o. for cardiac cath in the a.m. 07/24/23 Heart cath Indication: 1. Unstable angina.2. Severe aortic valve stenosis before AVR. onclusion: 1. Nonobstructive coronary artery disease. 2 cm. Wound nurse states patient go down a left heart cath 2. Severe aortic valve stenosis vertigo fall precuations orhto vs NIDDM ACHS BG, SSI hyponatremia NA 130 Diet Card, NPO after [place] Full Code DVT Lovenox Discharge Plan: Home - Code Status/Comfort Care Code Status: Full Code Physician Review: Patient Assessed, Agree with Above Assessment and Plan Critical Care: No Time Spent Managing PTS Care (In Minutes): 35 - Code Status/Comfort Care Code Status: Full Code Physician Review: Patient Assessed, Agree with Above Assessment and Plan Critical Care: No Time Spent Managing PTS Care (In Minutes): 35
[2023-07-25] MEDS: MECLIZINE HCL 12.5 MG TAB PO SCH ×3 (10:48→20:01)
[2023-07-25] MEDS: ENOXAPARIN 40 MG/0.4 ML SQ SCH (10:48)
[2023-07-25] MEDS: ASPIRIN 81 MG CHEWABLE TABLET PO SCH (10:48)
[2023-07-25] MEDS ORDERED: MAGNESIUM SULFATE 1 gm IVPB 1 GM/100 ML BAG IV ONE (11:29)
[2023-07-25] MEDS ORDERED: POTASSIUM CL SA 10 MEQ TAB PO ONE (11:29)
[2023-07-25] MEDS: FUROSEMIDE 40 MG/4 ML VIAL IV SCH ×2 (11:57→17:18)
[2023-07-25 18:11] VITALS: O2SAT 96
[2023-07-25] MEDS: ATORVASTATIN 10 MG TAB PO SCH (20:01)
[2023-07-26 01:29] VITALS: BP 100/47; TEMP 98.5
[2023-07-26 02:50] LABS: Magnesium 1.8 mg/dL (1.6-2.4); Potassium 3.6 mEq/L (3.5-5.1)
--- NOTE | 2023-08-02 14:48 | EKG ---
Test Date: 2023-07-25 Test Time: 07:23:54 Water Treatment Plant Supervisor: FLEX MEASUREMENT RESULTS: Intervals: Rate: 125 [place]: QRSD: 102 QT: 302 QTc: 435 [place]: P: [place]: QRS: -17 T: 93 INTERPRETIVE STATEMENTS: Atrial fibrillation with rapid ventricular response Incomplete right bundle branch block Minimal voltage criteria for LVH, may be normal variant ST & T wave abnormality, consider lateral ischemia or digitalis effect Abnormal ECG Compared to ECG 07/22/2023 03:44:20 Left ventricular hypertrophy now present Possible ischemia now present Atrial flutter no longer present T-wave abnormality no longer present ST (T wave) deviation still present Electronically Signed On 08-02-23 14:23:32 CANAL EQUIPMENT MECHANIC by Ziyad Hernández
== END 2023-07-26 02:46 | disposition short-term general hospital (02) | DRG 286 ==
LOC: ER 11:09 → ERHOLD 12:45 → 2ND 19:41 → OBSVTOIN 07-24 09:59
PROVIDERS: ADMIT Hospitalist; ATTEND Hospitalist
PROC: B2111ZZ Fluoroscopy of Multiple Coronary Arteries using Low Osmolar Contrast (ICD-10-PCS; principal; 2023-07-24)
PROC: 4A023N7 Measurement of Cardiac Sampling and Pressure, Left Heart, Percutaneous Approach (ICD-10-PCS; 2023-07-24)
DX: I11.0 Hypertensive heart disease with heart failure (principal); I50.33 Acute on chronic diastolic (congestive) heart failure; E87.1 Hypo-osmolality and hyponatremia; I20.0 Unstable angina; E11.9 Type 2 diabetes mellitus without complications; I35.0 Nonrheumatic aortic (valve) stenosis; I34.0 Nonrheumatic mitral (valve) insufficiency; E78.00 Pure hypercholesterolemia, unspecified; M19.90 Unspecified osteoarthritis, unspecified site; I25.2 Old myocardial infarction; R42 Dizziness and giddiness; Z60.2 Problems related to living alone; Z85.3 Personal history of malignant neoplasm of breast; Z88.8 Allergy status to other drugs, medicaments and biological substances; Z79.84 Long term (current) use of oral hypoglycemic drugs; Z90.12 Acquired absence of left breast and nipple; Z79.82 Long term (current) use of aspirin; Z90.710 Acquired absence of both cervix and uterus; Z79.899 Other long term (current) drug therapy
CPT/HCPCS: 36415; 51702; 71045; 76937; 80048; 80053; 81003; 82947; 83735; 83880; 84100; 84439; 84443; 84484; 85025; 85610; 93005; 93306; 93454; 96360; 96361; 97116; 97161; 97165; 97530; 99285; C1893; G0378; J1160; J1644; J1650; J1940; J2001; J2250; J2270; J2405; J3010; J3475; J7040; J8597; Q9966

== ENCOUNTER 2023-08-24 10:20 | Emergency (ER) | payer OTHER ==
--- OUTSIDE RECORDS SUMMARY | 2023-08-24 10:24 | XMS REPORT | Continuity of Care Document ---
:1940 Author Organization [facility] t Address [address] [facility] [address] [place] [address] Care Team Providers Name Role Phone Apolinar Rankin Attending Clinician Unavailable ARVIND_GCBZW_Paige_S Attending Clinician Unavailable CRISTIAN PORTILLO Attending Clinician Unavailable Apolinar Rankin Admitting Clinician Unavailable ARVIND_GCBZW_Katika_S Admitting Clinician Unavailable CRISTIAN PORTILLO Admitting Clinician Unavailable Payers Payer Name Policy Type Policy Number Effective Date Expiration Date S carrie [facility] - MEDICARE [id number] COMPLETE (MEDICARE REPLACEMENT HMO) Problems This patient has no known problems. Allergies, Adverse Reactions, Alerts Allergy Allergy Status Severity Reaction(s) Onset Inactive Treating Comm ents Source Name Type Date Date Clinician diphenhy DA Active U NAUSEA/VOMIT 2022-09 HC Katarina dramine ING 09-25 Clear 00:00: [place] 00 [facility] Medications This patient has no known medications. Procedures Procedure Date / Time Performed Performing Clinician Rahul stratton [id number] 2023-07-30 00:00:00 CHAAB.01 BRITTANY [facility] [id number] 2023-07-30 00:00:00 CHAAB.01 [facility] [id number] 2023-07-30 00:00:00 CHAAB.01 [facility]la [facility] Encounters Start End Encounter Admission Attending Care Care Encounter Source Date/Time Date/Time Type Type Clinicians Facility Department ID 2023-07-26 2023-08-05 Inpatient STEPHON Lopez [facility] [id number] [facility] 03:56:00 16:50:00 Apolinar 10 [facility] 2023-07-23 2023-07-23 Outpatient GC_GCBZW_Ka PRIV PRIV [id number] [facility] 00:00:00 00:00:00 diyala_S [id number] Medic al 2023-07-21 2023-07-21 Outpatient GC_GCBZW_Ka PRIV PRIV [id number] [facility] 00:00:00 00:00:00 diyala_S [id number] Medic al 2017-03-18 2017-05-04 Outpatient Dante [place]ILLO[place] [facility] [place] [id number] 183 [facility] 14:00:00 23:59:00 [facility] Results Test Description Test Time Test Comments Results Result Comments Source GLUCOSE BEDSIDE 2023-08-05 12:18:00 Test Item Value Reference Range Interpretation Comme nts GLUCOSE BEDSIDE (test code = 119 MG/DL 70-110 H Performed by certified 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 [facility]) [facility] GLUCOSE [id number] 08:22:00 Test Item Value Reference Range Interpretation Comments GLUCOSE BEDSIDE (test 100 MG/DL 70-110 N [facility] by certified code = GLUBED) 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 [facility] BASIC METABOLIC [id number] 05:52:00 Test Item Value Reference Range Interpretation Comments SODIUM (test code = 133 mEq/L 134-147 L NA) POTASSIUM (test code 4.7 mEq/L 3.4-5.0 N = K) CHLORIDE (test code 99 mEq/L 100-108 L = CL) CARBON DIOXIDE (test 30 mEq/l 21-33 N code = CO2) ANION GAP (test code 9 0-20 N = GAP) GLUCOSE (test code = 91 mg/dL 77-141 N NOTE: N EW NORMAL RANGE GLU) BLOOD UREA NITROGEN 7 mg/dL 7-25 N NOTE: NE W NORMAL RANGE (test code = BUN) GLOMERULAR 84.7 70-80 H The Glomerular FILTRATION RATE Filtration R ate is a (test code = GFR) calculated parameterbased on serum Creatinine, pat ient age and sex. GFR va luesless than 60 mL/min/ 1.73 square meters a re indicative ofCh ronic Kidney Disease. Values less than 15 mL/min/1.73squa re meters indicate Kidney failure. The calculation forGFR is based on the CKD-EPI (2020) calculat ion. This formulais race indifferent and is the recommended for bernard for GFRby the [facility] Kidney Foundati on for Adults.The GFR will not calculate if th e sex is unknown or if thepatient's ag e is <18 years. CREATININE (test 0.7 mg/dL 0.6-1.3 N code = CREAT) CALCIUM (test code = 8.3 mg/dL 8.0-10.5 N CA) [id number] 05:52:00 Test Item Value Reference Range Interpretation Comments MAGNESIUM (test code = 1.90 mg/dL 1.6-2.6 N NOTE: NEW NORMAL MAG) RANGE CBC W/AUTO [id number] 05:43:00 Test Item Value Reference Range Interpretation Comments WHITE BLOOD CELL (test code = 10.2 x10 3/uL 4.5-11.0 N WBC) RED BLOOD CELL (test code = 3.47 x10 6/uL 3.54-5.02 L RBC) HEMOGLOBIN (test code = HGB) 10.2 g/dL 11.0-15.0 L HEMATOCRIT (test code = HCT) 31.4 % 33.0-45.0 L MEAN CELL VOLUME (test code = 90.5 fL 81.0-99.0 N MCV) MEAN CELL HGB (test code = MCH) 29.4 pg 27.0-33.0 N MEAN CELL HGB CONCETRATION 32.5 g/dL 33.0-37.0 L (test code = MCHC) RED CELL DISTRIBUTION WIDTH CV 13.7 % 11.5-14.5 N (test code = RDW) RED CELL DISTRIBUTION WIDTH SD 45.1 fL 37.0-54.0 N (test code = RDW-SD) PLATELET COUNT (test code = 231 x10 3/uL 150-400 N PLT) MEAN PLATELET VOLUME (test code 12.2 fL 7.0-9.0 H = MPV) NEUTROPHIL % (test code = NT%) 66.9 % 56.0-77.0 N IMMATURE GRANULOCYTE % (test 1.5 % 0.0-2.0 N code = IG%) LYMPHOCYTE % (test code = LY%) 17.8 % 14.0-32.0 N MONOCYTE % (test code = MO%) 11.1 % 4.8-9.0 H EOSINOPHIL % (test code = EO%) 2.2 % 0.3-3.7 N BASOPHIL % (test code = BA%) 0.5 % 0.0-2.0 N NUCLEATED RBC % (test code = 0.0 % 0-0 N NRBC%) NEUTROPHIL # (test code = NT#) 6.84 x10 3/uL 2.0-7.6 N IMMATURE GRANULOCYTE # (test 0.15 x10 3/uL 0.00-0.03 H code = IG#) LYMPHOCYTE # (test code = LY#) 1.82 x10 3/uL 1.0-3.8 N MONOCYTE # (test code = MO#) 1.13 x10 3/uL 0.1-0.8 H EOSINOPHIL # (test code = EO#) 0.22 x10 3/uL 0.0-0.2 H BASOPHIL # (test code = BA#) 0.05 x10 3/uL 0.0-0.2 N NUCLEATED RBC # (test code = 0.00 x10 3/uL 0.0-0.1 N NRBC#) GLUCOSE [id number] 22:53:00 Test Item Value Reference Range Interpretation Comments GLUCOSE BEDSIDE (test 99 MG/DL 70-110 N Perfor med by certified code = GLUBED) 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 [facility] GLUCOSE [id number] 16:38:00 Test Item Value Reference Range Interpretation Comments GLUCOSE BEDSIDE (test 123 MG/DL 70-110 H Perfor med by certified code = GLUBED) 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 [facility] GLUCOSE [id number] 12:06:00 Test Item Value Reference Range Interpretation Comments GLUCOSE BEDSIDE (test 115 MG/DL 70-110 H Perfor med by certified code = GLUBED) 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 [facility] POC ARTERIAL BLOOD [id number] 08:43:00 Test Item Value Reference Range Interpretation Comments POC ARTERIAL BLOOD GAS PH (test 7.361 7.35-7.45 N code = POCPHA) POC ARTERIAL BLOOD GAS PCO2 (test 36.3 mmHg 35.0-45 N code = [id number]) POC TCO2 ARTERIAL (test code = 21.6 POCTCO2) POC ARTERIAL BLOOD GAS PO2 (test 122.7 mmHg 80-100.0 H code = VBPQD0J) POC HCO3 ARTERIAL (test code = 20.5 MMOL/L 22.0-26.0 L [id number]) POC BASE EXCESS (test code = -4.9 MMOL/L -4.0-4.0 L POCBEA) POC O2 SATURATION (test code = 98.6 % 90-100 N POCO2S) GLUCOSE [id number] 07:40:00 Test Item Value Reference Range Interpretation Comments GLUCOSE BEDSIDE (test 109 MG/DL 70-110 N Perfor med by certified code = GLUBED) 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 [facility] BASIC METABOLIC [id number] 06:43:00 Test Item Value Reference Range Interpretation Comments SODIUM (test code = 130 mEq/L 134-147 L NA) POTASSIUM (test code 4.4 mEq/L 3.4-5.0 N = K) CHLORIDE (test code 102 mEq/L 100-108 N = CL) CARBON DIOXIDE (test 30 mEq/l 21-33 N code = CO2) ANION GAP (test code 2 0-20 N = GAP) GLUCOSE (test code = 119 mg/dL 77-141 N NOTE: N EW NORMAL RANGE GLU) BLOOD UREA NITROGEN 10 mg/dL 7-25 N NOTE: NE W NORMAL RANGE (test code = BUN) GLOMERULAR 84.7 70-80 H The Glomerular FILTRATION RATE Filtration R ate is a (test code = GFR) calculated parameterbased on serum Creatinine, pat ient age and sex. GFR va luesless than 60 mL/min/ 1.73 square meters a re indicative ofCh ronic Kidney Disease. Values less than 15 mL/min/1.73squa re meters indicate Kidney failure. The calculation forGFR is based on the CKD-EPI (2020) calculat ion. This formulais race indifferent and is the recommended for bernard for GFRby the Nat nal Kidney Foundati on for Adults.The GFR will not calculate if th e sex is unknown or if thepatient's ag e is <18 years. CREATININE (test 0.7 mg/dL 0.6-1.3 N code = CREAT) CALCIUM (test code = 8.6 mg/dL 8.0-10.5 N CA) [id number] 06:43:00 Test Item Value Reference Range Interpretation Comments MAGNESIUM (test code = 1.99 mg/dL 1.6-2.6 N NOTE: NEW NORMAL MAG) RANGE CBC W/AUTO [id number] 06:24:00 Test Item Value Reference Range Interpretation Comments WHITE BLOOD CELL (test code = 11.3 x10 3/uL 4.5-11.0 H WBC) RED BLOOD CELL (test code = 3.40 x10 6/uL 3.54-5.02 L RBC) HEMOGLOBIN (test code = HGB) 9.9 g/dL 11.0-15.0 L HEMATOCRIT (test code = HCT) 30.2 % 33.0-45.0 L MEAN CELL VOLUME (test code = 88.8 fL 81.0-99.0 N MCV) MEAN CELL HGB (test code = MCH) 29.1 pg 27.0-33.0 N MEAN CELL HGB CONCETRATION 32.8 g/dL 33.0-37.0 L (test code = MCHC) RED CELL DISTRIBUTION WIDTH CV 13.6 % 11.5-14.5 N (test code = RDW) RED CELL DISTRIBUTION WIDTH SD 44.7 fL 37.0-54.0 N (test code = RDW-SD) PLATELET COUNT (test code = 225 x10 3/uL 150-400 N PLT) MEAN PLATELET VOLUME (test code 11.9 fL 7.0-9.0 H = MPV) NEUTROPHIL % (test code = NT%) 69.8 % 56.0-77.0 N IMMATURE GRANULOCYTE % (test 1.0 % 0.0-2.0 N code = IG%) LYMPHOCYTE % (test code = LY%) 15.7 % 14.0-32.0 N MONOCYTE % (test code = MO%) 11.1 % 4.8-9.0 H EOSINOPHIL % (test code = EO%) 2.0 % 0.3-3.7 N BASOPHIL % (test code = BA%) 0.4 % 0.0-2.0 N NUCLEATED RBC % (test code = 0.0 % 0-0 N NRBC%) NEUTROPHIL # (test code = NT#) 7.92 x10 3/uL 2.0-7.6 H IMMATURE GRANULOCYTE # (test 0.11 x10 3/uL 0.00-0.03 H code = IG#) LYMPHOCYTE # (test code = LY#) 1.78 x10 3/uL 1.0-3.8 N MONOCYTE # (test code = MO#) 1.26 x10 3/uL 0.1-0.8 H EOSINOPHIL # (test code = EO#) 0.23 x10 3/uL 0.0-0.2 H BASOPHIL # (test code = BA#) 0.04 x10 3/uL 0.0-0.2 N NUCLEATED RBC # (test code = 0.00 x10 3/uL 0.0-0.1 N NRBC#) GLUCOSE [id number] 21:25:00 Test Item Value Reference Range Interpretation Comments GLUCOSE BEDSIDE (test 151 MG/DL 70-110 H Perfor med by certified code = GLUBED) 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 [facility] - US SOFT TISSUE [id number] 21:17:00 [facility] 1940 Sex: F Name: EVELYN GIBSON [facility] : 1940 Age/S: 83 / F [address] [place] [address] Unit #: [id number] Loc: [place] [address] Phys: Dayna Younger Acct: [id number] Dis Date: Status: ADM IN PHONE #: [phone] Exam Date: 08/03/20231737 FAX #: [phone] Reason: groin wounds bleeding. EXAMS: CPT CODE: [id number] US SOFT TISSUE TORSO [id number] EXAMINATION: - US SOFT TISSUE TORSO CLINICALINDICATION: Female, 83 years old with groin wounds bleeding. COMPARISON: None TECHNIQUE: Grayscale and color Doppler evaluation of the bilateral inguinal canal is performed. FINDINGS: At the right inguinal canal, there is a hypoechoic fluid collection measuring 4.6 cm x 2.1 cm x 9 mm, no internal flowis appreciated. This likely represents hematoma. At the left inguinal canal, there are 2 small fluidcollection is identified measuring 1.9 cm x 7 mm x 2 cm and 1.7 cm x 1.3 cm x 4 mm. No internal flowis appreciated. No identifiable pseudoaneurysm with respect the common femoral artery bilaterally. IMPRESSION: Bilateral small inguinal hematoma, no evidence of pseudoaneurysm or active bleeding. at 2116 Reported and signed by: Efrain Park M.D. CC: Apolinar Rankin MD; Dayna Younger Technologist: Elaine Zaman [facility] Date/Time: 08/03/2023 (2116) [id number] Orig Print D/T: S: 08/03/2023 (2119) Probe: PAGE 1 Signed ReportGLUCOSE [id number] 17:12:00 Test Item Value Reference Range Interpretation Comments GLUCOSE BEDSIDE (test 128 MG/DL 70-110 H Perfor med by certified code = GLUBED) 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 [facility] GLUCOSE [id number] 12:54:00 Test Item Value Reference Range Interpretation Comments GLUCOSE BEDSIDE (test 145 MG/DL 70-110 H Perfor med by certified code = GLUBED) 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 [facility] BASIC METABOLIC [id number] 06:10:00 Test Item Value Reference Range Interpretation Comments SODIUM (test code = 129 mEq/L 134-147 L NA) POTASSIUM (test code 4.2 mEq/L 3.4-5.0 N = K) CHLORIDE (test code 99 mEq/L 100-108 L = CL) CARBON DIOXIDE (test 29 mEq/l 21-33 N code = CO2) ANION GAP (test code 5 0-20 N = GAP) GLUCOSE (test code = 106 mg/dL 77-141 N NOTE: N EW NORMAL RANGE GLU) BLOOD UREA NITROGEN 10 mg/dL 7-25 N NOTE: NE W NORMAL RANGE (test code = BUN) GLOMERULAR 72.2 70-80 N The Glomerular FILTRATION RATE Filtration R ate is a (test code = GFR) calculated parameterbased on serum Creatinine, pat ient age and sex. GFR va luesless than 60 mL/min/ 1.73 square meters a re indicative ofCh ronic Kidney Disease. Values less than 15 mL/min/1.73squa re meters indicate Kidney failure. The calculation forGFR is based on the CKD-EPI (2020) calculat ion. This formulais race indifferent and is the recommended for bernard for GFRby the Natio nal Kidney Foundati on for Adults.The GFR will not calculate if th e sex is unknown or if thepatient's ag e is <18 years. CREATININE (test 0.8 mg/dL 0.6-1.3 N code = CREAT) CALCIUM (test code = 8.6 mg/dL 8.0-10.5 N CA) [id number] 06:10:00 Test Item Value Reference Range Interpretation Comments MAGNESIUM (test code = 2.26 mg/dL 1.6-2.6 NOTE: NEW NORMAL MAG) RANGE CBC W/AUTO [id number] 05:42:00 Test Item Value Reference Range Interpretation Comments WHITE BLOOD CELL (test code = 10.5 x10 3/uL 4.5-11.0 N WBC) RED BLOOD CELL (test code = 3.38 x10 6/uL 3.54-5.02 L RBC) HEMOGLOBIN (test code = HGB) 9.9 g/dL 11.0-15.0 L HEMATOCRIT (test code = HCT) 30.5 % 33.0-45.0 L MEAN CELL VOLUME (test code = 90.2 fL 81.0-99.0 N MCV) MEAN CELL HGB (test code = MCH) 29.3 pg 27.0-33.0 N MEAN CELL HGB CONCETRATION 32.5 g/dL 33.0-37.0 L (test code = MCHC) RED CELL DISTRIBUTION WIDTH CV 13.5 % 11.5-14.5 N (test code = RDW) RED CELL DISTRIBUTION WIDTH SD 44.6 fL 37.0-54.0 N (test code = RDW-SD) PLATELET COUNT (test code = 210 x10 3/uL 150-400 N PLT) MEAN PLATELET VOLUME (test code 12.3 fL 7.0-9.0 H = MPV) NEUTROPHIL % (test code = NT%) 68.6 % 56.0-77.0 N IMMATURE GRANULOCYTE % (test 1.0 % 0.0-2.0 N code = IG%) LYMPHOCYTE % (test code = LY%) 16.6 % 14.0-32.0 N MONOCYTE % (test code = MO%) 11.6 % 4.8-9.0 H EOSINOPHIL % (test code = EO%) 1.9 % 0.3-3.7 N BASOPHIL % (test code = BA%) 0.3 % 0.0-2.0 N NUCLEATED RBC % (test code = 0.0 % 0-0 N NRBC%) NEUTROPHIL # (test code = NT#) 7.20 x10 3/uL 2.0-7.6 N IMMATURE GRANULOCYTE # (test 0.11 x10 3/uL 0.00-0.03 H code = IG#) LYMPHOCYTE # (test code = LY#) 1.74 x10 3/uL 1.0-3.8 N MONOCYTE # (test code = MO#) 1.22 x10 3/uL 0.1-0.8 H EOSINOPHIL # (test code = EO#) 0.20 x10 3/uL 0.0-0.2 N BASOPHIL # (test code = BA#) 0.03 x10 3/uL 0.0-0.2 N NUCLEATED RBC # (test code = 0.00 x10 3/uL 0.0-0.1 N NRBC#) GLUCOSE [id number] 20:52:00 Test Item Value Reference Range Interpretation Comments GLUCOSE BEDSIDE (test 166 MG/DL 70-110 H Perfor med by certified code = GLUBED) 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 [facility] GLUCOSE [id number] 18:08:00 Test Item Value Reference Range Interpretation Comments GLUCOSE BEDSIDE (test 113 MG/DL 70-110 H Perfor med by certified code = GLUBED) 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 [facility] GLUCOSE [id number] 13:08:00 Test Item Value Reference Range Interpretation Comments GLUCOSE BEDSIDE (test 118 MG/DL 70-110 H Perfor med by certified code = GLUBED) 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 [facility] BASIC METABOLIC [id number] 03:58:00 Test Item Value Reference Range Interpretation Comments SODIUM (test code = 129 mEq/L 134-147 L NA) POTASSIUM (test code 4.2 mEq/L 3.4-5.0 N = K) CHLORIDE (test code 99 mEq/L 100-108 L = CL) CARBON DIOXIDE (test 27 mEq/l 21-33 N code = CO2) ANION GAP (test code 7 0-20 N = GAP) GLUCOSE (test code = 110 mg/dL 77-141 N NOTE: N EW NORMAL RANGE GLU) BLOOD UREA NITROGEN 10 mg/dL 7-25 N NOTE: NE W NORMAL RANGE (test code = BUN) GLOMERULAR 84.7 70-80 H The Glomerular FILTRATION RATE Filtration R ate is a (test code = GFR) calculated parameterbased on serum Creatinine, pat ient age and sex. GFR va luesless than 60 mL/min/ 1.73 square meters a re indicative ofCh ronic Kidney Disease. Values less than 15 mL/min/1.73squa re meters indicate Kidney failure. The calculation forGFR is based on the CKD-EPI (2020) calculat ion. This formulais race indifferent and is the recommended for bernard for GFRby the [facility] Kidney Foundati on for Adults.The GFR will not calculate if th e sex is unknown or if thepatient's ag e is <18 years. CREATININE (test 0.7 mg/dL 0.6-1.3 N code = CREAT) CALCIUM (test code = 8.8 mg/dL 8.0-10.5 N CA) [id number] 03:58:00 Test Item Value Reference Range Interpretation Comments MAGNESIUM (test code = 1.84 mg/dL 1.6-2.6 N NOTE: NEW NORMAL MAG) RANGE CALCIUM [id number] 03:58:00 Test Item Value Reference Range Interpretation Comments CALCIUM IONIZED (test code = SANAZ) 1.11 MMOL/L 1.09-1.30 N CBC W/AUTO [id number] 03:31:00 Test Item Value Reference Range Interpretation Comments WHITE BLOOD CELL (test code = 14.7 x10 3/uL 4.5-11.0 H WBC) RED BLOOD CELL (test code = 4.15 x10 6/uL 3.54-5.02 N RBC) HEMOGLOBIN (test code = HGB) 12.0 g/dL 11.0-15.0 N HEMATOCRIT (test code = HCT) 37.1 % 33.0-45.0 N MEAN CELL VOLUME (test code = 89.4 fL 81.0-99.0 N MCV) MEAN CELL HGB (test code = 28.9 pg 27.0-33.0 N MCH) MEAN CELL HGB CONCETRATION 32.3 g/dL 33.0-37.0 L (test code = MCHC) RED CELL DISTRIBUTION WIDTH CV 13.2 % 11.5-14.5 N (test code = RDW) RED CELL DISTRIBUTION WIDTH SD 43.5 fL 37.0-54.0 N (test code = RDW-SD) PLATELET COUNT (test code = 239 x10 3/uL 150-400 N PLT) MEAN PLATELET VOLUME (test 12.0 fL 7.0-9.0 H code = MPV) NEUTROPHIL % (test code = NT%) 74.6 % 56.0-77.0 N IMMATURE GRANULOCYTE % (test 0.6 % 0.0-2.0 N code = IG%) LYMPHOCYTE % (test code = LY%) 12.7 % 14.0-32.0 L MONOCYTE % (test code = MO%) 10.4 % 4.8-9.0 H EOSINOPHIL % (test code = EO%) 1.4 % 0.3-3.7 N BASOPHIL % (test code = BA%) 0.3 % 0.0-2.0 N NUCLEATED RBC % (test code = 0.0 % 0-0 N NRBC%) NEUTROPHIL # (test code = NT#) 10.93 x10 3/uL 2.0-7.6 H IMMATURE GRANULOCYTE # (test 0.09 x10 3/uL 0.00-0.03 H code = IG#) LYMPHOCYTE # (test code = LY#) 1.87 x10 3/uL 1.0-3.8 N MONOCYTE # (test code = MO#) 1.52 x10 3/uL 0.1-0.8 H EOSINOPHIL # (test code = EO#) 0.21 x10 3/uL 0.0-0.2 H BASOPHIL # (test code = BA#) 0.05 x10 3/uL 0.0-0.2 N NUCLEATED RBC # (test code = 0.00 x10 3/uL 0.0-0.1 N NRBC#) GLUCOSE [id number] 16:35:00 Test Item Value Reference Range Interpretation Comments GLUCOSE BEDSIDE (test 111 MG/DL 70-110 H Perfor med by certified code = GLUBED) 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 [facility] - XR CHEST 1 [id number] 15:52:00 [facility] : 1940 Sex: F FAX: Apolinar Banuelos MD [phone] [place]: St: ADM FAX: Tabitha Herring [phone] -------- Name: EVELYN GIBSON [facility] : 1940 Age/S: 83/F [address] [place] [address] Blvd Unit #: [id number] Loc: G.8853 [place] [address] Phys: Tabitha Herring AGACNP Acct: [id number] Dis Date: Status: ADM IN PHONE #: [phone] Exam Date: 08/01/20231430 FAX #: [phone] Reason: afib RVR EXAMS: CPT CODE: [id number] XR CHEST 1 V [id number] Dictation location: C4. CHEST, FRONTAL VIEW HISTORY: afib RVR FINDINGS: Since 07/30/23, calcified granuloma seen in the right upper lobe. The lungs are otherwise clear. The heart sizeis normal. TAVR. Thoracic spondylosis. Left axillary node dissection. IMPRESSION: No evidence of acute cardiopulmonary disease. TAVR. at 1552 Reported and signed by: Sylvester Boothe M.D. CC: Apolinar Rankin MD; Tabitha Herring Technologist: RT Tahir(R) Trnscrd Date/Time/By: 08/01/2023 (5862) : By: [email or web address] Orig Print D/T: S: 08/01/2023 (7753) PAGE 1 Signed ReportGLUCOSE BEDSIDE 2023-08-01 11:32:00 Test Item Value Reference Range Interpretation Comments GLUCOSE BEDSIDE (test 129 MG/DL 70-110 H Perfor med by certified code = GLUBED) 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 [facility] GLUCOSE [id number] 07:32:00 Test Item Value Reference Range Interpretation Comments GLUCOSE BEDSIDE (test 109 MG/DL 70-110 N Perfor med by certified code = GLUBED) 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 [facility] BASIC METABOLIC [id number] 07:25:00 Test Item Value Reference Range Interpretation Comments SODIUM (test code = 129 mEq/L 134-147 L NA) POTASSIUM (test code 4.0 mEq/L 3.4-5.0 N = K) CHLORIDE (test code 98 mEq/L 100-108 L = CL) CARBON DIOXIDE (test 29 mEq/l 21-33 N code = CO2) ANION GAP (test code 7 0-20 N = GAP) GLUCOSE (test code = 119 mg/dL 77-141 N NOTE: N EW NORMAL RANGE GLU) BLOOD UREA NITROGEN 12 mg/dL 7-25 N NOTE: NE W NORMAL RANGE (test code = BUN) GLOMERULAR 84.7 70-80 H The Glomerular FILTRATION RATE Filtration R ate is a (test code = GFR) calculated parameterbased on serum Creatinine, pat ient age and sex. GFR va luesless than 60 mL/min/ 1.73 square meters a re indicative ofCh ronic Kidney Disease. Values less than 15 mL/min/1.73squa re meters indicate Kidney failure. The calculation forGFR is based on the CKD-EPI (2020) calculat ion. This formulais race indifferent and is the recommended for bernard for GFRby the [facility] Kidney Foundati on for Adults.The GFR will not calculate if th e sex is unknown or if thepatient's ag e is <18 years. CREATININE (test 0.7 mg/dL 0.6-1.3 N code = CREAT) CALCIUM (test code = 9.1 mg/dL 8.0-10.5 N CA) [id number] 07:25:00 Test Item Value Reference Range Interpretation Comments MAGNESIUM (test code = 1.90 mg/dL 1.6-2.6 N NOTE: NEW NORMAL MAG) RANGE CBC W/AUTO [id number] 07:02:00 Test Item Value Reference Range Interpretation Comments WHITE BLOOD CELL (test code = 13.7 x10 3/uL 4.5-11.0 H WBC) RED BLOOD CELL (test code = 4.22 x10 6/uL 3.54-5.02 N RBC) HEMOGLOBIN (test code = HGB) 12.2 g/dL 11.0-15.0 N HEMATOCRIT (test code = HCT) 37.9 % 33.0-45.0 N MEAN CELL VOLUME (test code = 89.8 fL 81.0-99.0 N MCV) MEAN CELL HGB (test code = 28.9 pg 27.0-33.0 N MCH) MEAN CELL HGB CONCETRATION 32.2 g/dL 33.0-37.0 L (test code = MCHC) RED CELL DISTRIBUTION WIDTH CV 13.3 % 11.5-14.5 N (test code = RDW) RED CELL DISTRIBUTION WIDTH SD 43.7 fL 37.0-54.0 N (test code = RDW-SD) PLATELET COUNT (test code = 218 x10 3/uL 150-400 N PLT) MEAN PLATELET VOLUME (test 12.0 fL 7.0-9.0 H code = MPV) NEUTROPHIL % (test code = NT%) 75.3 % 56.0-77.0 N IMMATURE GRANULOCYTE % (test 0.6 % 0.0-2.0 N code = IG%) LYMPHOCYTE % (test code = LY%) 11.3 % 14.0-32.0 L MONOCYTE % (test code = MO%) 11.3 % 4.8-9.0 H EOSINOPHIL % (test code = EO%) 1.2 % 0.3-3.7 N BASOPHIL % (test code = BA%) 0.3 % 0.0-2.0 N NUCLEATED RBC % (test code = 0.0 % 0-0 N NRBC%) NEUTROPHIL # (test code = NT#) 10.32 x10 3/uL 2.0-7.6 H IMMATURE GRANULOCYTE # (test 0.08 x10 3/uL 0.00-0.03 H code = IG#) LYMPHOCYTE # (test code = LY#) 1.55 x10 3/uL 1.0-3.8 N MONOCYTE # (test code = MO#) 1.55 x10 3/uL 0.1-0.8 H EOSINOPHIL # (test code = EO#) 0.17 x10 3/uL 0.0-0.2 N BASOPHIL # (test code = BA#) 0.04 x10 3/uL 0.0-0.2 N NUCLEATED RBC # (test code = 0.00 x10 3/uL 0.0-0.1 N NRBC#) GLUCOSE [id number] 16:20:00 Test Item Value Reference Range Interpretation Comments GLUCOSE BEDSIDE (test 107 MG/DL 70-110 N Perfor med by certified code = GLUBED) 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 [facility] GLUCOSE [id number] 11:36:00 Test Item Value Reference Range Interpretation Comments GLUCOSE BEDSIDE (test 178 MG/DL 70-110 H Perfor med by certified code = GLUBED) 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 [facility] GLUCOSE [id number] 07:36:00 Test Item Value Reference Range Interpretation Comments GLUCOSE BEDSIDE (test 99 MG/DL 70-110 N Perfor med by certified code = GLUBED) 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 [facility] BASIC METABOLIC [id number] 05:15:00 Test Item Value Reference Range Interpretation Comments SODIUM (test code = 128 mEq/L 134-147 L NA) POTASSIUM (test code 4.2 mEq/L 3.4-5.0 N = K) CHLORIDE (test code 95 mEq/L 100-108 L = CL) CARBON DIOXIDE (test 29 mEq/l 21-33 N code = CO2) ANION GAP (test code 8 0-20 N = GAP) GLUCOSE (test code = 107 mg/dL 77-141 NOTE: N EW NORMAL RANGE GLU) BLOOD UREA NITROGEN 18 mg/dL 7-25 N NOTE: NE W NORMAL RANGE (test code = BUN) GLOMERULAR 62.7 70-80 L The Glomerular FILTRATION RATE Filtration R ate is a (test code = GFR) calculated parameterbased on serum Creatinine, pat ient age and sex. GFR va luesless than 60 mL/min/ 1.73 square meters a re indicative ofCh ronic Kidney Disease. Values less than 15 mL/min/1.73squa re meters indicate Kidney failure. The calculation forGFR is based on the CKD-EPI (2020) calculat ion. This formulais race indifferent and is the recommended for bernard for GFRby the [facility] on for Adults.The GFR will not calculate if th e sex is unknown or if thepatient's ag e is <18 years. CREATININE (test 0.9 mg/dL 0.6-1.3 N code = CREAT) CALCIUM (test code = 9.1 mg/dL 8.0-10.5 N CA) [id number] 05:15:00 Test Item Value Reference Range Interpretation Comments PHOSPHOROUS (test code = PHOS) 3.4 MG/DL 2.5-4.9 N [id number] 05:15:00 Test Item Value Reference Range Interpretation Comments MAGNESIUM (test code = 1.98 mg/dL 1.6-2.6 N NOTE: NEW NORMAL MAG) RANGE CALCIUM [id number] 05:15:00 Test Item Value Reference Range Interpretation Comments CALCIUM IONIZED (test code = SANAZ) 1.15 MMOL/L 1.09-1.30 N CBC W/AUTO [id number] 04:36:00 Test Item Value Reference Range Interpretation Comments WHITE BLOOD CELL (test code = 15.4 x10 3/uL 4.5-11.0 H WBC) RED BLOOD CELL (test code = 4.12 x10 6/uL 3.54-5.02 N RBC) HEMOGLOBIN (test code = HGB) 11.9 g/dL 11.0-15.0 N HEMATOCRIT (test code = HCT) 36.0 % 33.0-45.0 N MEAN CELL VOLUME (test code = 87.4 fL 81.0-99.0 N MCV) MEAN CELL HGB (test code = 28.9 pg 27.0-33.0 N MCH) MEAN CELL HGB CONCETRATION 33.1 g/dL 33.0-37.0 N (test code = MCHC) RED CELL DISTRIBUTION WIDTH CV 13.2 % 11.5-14.5 N (test code = RDW) RED CELL DISTRIBUTION WIDTH SD 42.3 fL 37.0-54.0 N (test code = RDW-SD) PLATELET COUNT (test code = 257 x10 3/uL 150-400 N PLT) MEAN PLATELET VOLUME (test 11.2 fL 7.0-9.0 H code = MPV) NEUTROPHIL % (test code = NT%) 76.5 % 56.0-77.0 N IMMATURE GRANULOCYTE % (test 0.8 % 0.0-2.0 N code = IG%) LYMPHOCYTE % (test code = LY%) 10.8 % 14.0-32.0 L MONOCYTE % (test code = MO%) 11.0 % 4.8-9.0 H EOSINOPHIL % (test code = EO%) 0.6 % 0.3-3.7 N BASOPHIL % (test code = BA%) 0.3 % 0.0-2.0 N NUCLEATED RBC % (test code = 0.0 % 0-0 N NRBC%) NEUTROPHIL # (test code = NT#) 11.78 x10 3/uL 2.0-7.6 H IMMATURE GRANULOCYTE # (test 0.13 x10 3/uL 0.00-0.03 H code = IG#) LYMPHOCYTE # (test code = LY#) 1.66 x10 3/uL 1.0-3.8 N MONOCYTE # (test code = MO#) 1.69 x10 3/uL 0.1-0.8 H EOSINOPHIL # (test code = EO#) 0.09 x10 3/uL 0.0-0.2 N BASOPHIL # (test code = BA#) 0.04 x10 3/uL 0.0-0.2 N NUCLEATED RBC # (test code = 0.00 x10 3/uL 0.0-0.1 N NRBC#) GLUCOSE [id number] 20:44:00 Test Item Value Reference Range Interpretation Comments GLUCOSE BEDSIDE (test 170 MG/DL 70-110 H Perfor med by certified code = GLUBED) 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 [facility] GLUCOSE [id number] 16:19:00 Test Item Value Reference Range Interpretation Comments GLUCOSE BEDSIDE (test 79 MG/DL 70-110 N Perfor med by certified code = GLUBED) 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 [facility] GLUCOSE [id number] 13:57:00 Test Item Value Reference Range Interpretation Comments GLUCOSE BEDSIDE (test 88 MG/DL 70-110 N Perfor med by certified code = GLUBED) 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 [facility] 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 [id number] 13:57:00 Test Item Value Reference Range Interpretation Comments GLUCOSE BEDSIDE (test 108 MG/DL 70-110 N Perfor med by certified code = GLUBED) 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 [facility] - XR CHEST 1 [id number] 10:43:00 [facility] : 1940 Sex: F FAX: Apolinar Banuelos MD [phone] [place]: St: [facility] FAX: Kameron Degroot NP [phone] -------- Name: EVELYN GIBSON [facility] : 1940 Age/S: 83/F [address] [place] [address] Unit #: [id number] Loc: [place] [address] Phys: Kameron Degroot NP Acct: [id number] Dis Date: Status: ADM IN PHONE #: [phone] Date: 07/30/2023 104 FAX #: [phone] Reason: TAVR EXAMS: CPT CODE: [id number] XR CHEST 1 V [id number] EXAM: - XR CHEST 1 V INDICATION: TAVR Technique: Frontal view Location: T18 Findings and impression: No acute cardiopulmonary process seen. Lungs appear clear. No pleural effusion seen. Cardiomediastinal silhouette appears unremarkable. Osseous structures appear unremarkable. at 1043 Reported and signed by: Hussein Goldstein M.D. 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 [id number] 03:41:00 Test Item Value Reference Range Interpretation Comments MAGNESIUM (test code = 1.97 mg/dL 1.6-2.6 N NOTE: NEW NORMAL MAG) RANGE BASIC METABOLIC [id number] 03:16:00 Test Item Value Reference Range Interpretation Comments SODIUM (test code = 129 mEq/L 134-147 L NA) POTASSIUM (test code 4.0 mEq/L 3.4-5.0 N = K) CHLORIDE (test code 94 mEq/L 100-108 L = CL) CARBON DIOXIDE (test 30 mEq/l 21-33 N code = CO2) ANION GAP (test code 9 0-20 N = GAP) GLUCOSE (test code = 79 mg/dL 77-141 N NOTE: N EW NORMAL RANGE GLU) BLOOD UREA NITROGEN 19 mg/dL 7-25 N NOTE: NE W NORMAL RANGE (test code = BUN) GLOMERULAR 62.7 70-80 L The Glomerular FILTRATION RATE Filtration R ate is a (test code = GFR) calculated parameterbased on serum Creatinine, pat ient age and sex. GFR va luesless than 60 mL/min/ 1.73 square meters a re indicative ofCh ronic Kidney Disease. Values less than 15 mL/min/1.73squa re meters indicate Kidney failure. The calculation forGFR is based on the CKD-EPI (2020) calculat ion. This formulais race indifferent and is the recommended for bernard for GFRby the Nat n[facility] Foundati on for Adults.The GFR will not calculate if th e sex is unknown or if thepatient's ag e is <18 years. CREATININE (test 0.9 mg/dL 0.6-1.3 N code = CREAT) CALCIUM (test code = 9.1 mg/dL 8.0-10.5 N CA) COMMENTS: To be done morning of Heart CathPROTHROMBIN [id number] 03:13:00 Test Item Value Reference Range Interpretation Comments PROTHROMBIN TIME 11.5 SECONDS 9.3-12.9 N PATIENT (test code = PTP) INTERNATIONAL NORMAL 1.0 0.8-1.2 N TARGET INR BY RATIO (test code = INDICATIO N Indication INR) INR1. Prophylax is of venous thrombos is 2.0 - 3.0 (orthoped ic surgery), Proph ylaxis of venous throm bosis (other than hig h-risk surgery), Treat ment of Deep Vein Thrombosis/Pulm onary Embolism, Preve ntion of systemic emb olism - Tissue heart va lves, Acute Myocardia l Infarction (to prevent systemic emboli sm), Valvular heart disease, Atrial Fibrillation, Bileaflet mecha nical valve in aortic position.2. Mec hanical prosthetic valv es (high risk), 2. 5 - 3.5 Presence of Lup us Anticoagulant o r Antiphospholipi d Antibodies, Pre vention of systemic emb olism - Acute Myocardia l Infarction (to prevent recurrent infar ct). THROMBOPLASTIN TIME [id number] 03:13:00 Test Item Value Reference Range Interpretation Comments THROMBOPLASTIN TIME 40.3 Seconds 25.0-39.5 H Therape utic Range: PARTIAL (test code = 50.4 - 88.3 Seconds PTT) Effective 01/05/2019 CBC W/AUTO [id number] 03:01:00 Test Item Value Reference Range Interpretation Comments WHITE BLOOD CELL (test code = 11.0 x10 3/uL 4.5-11.0 N WBC) RED BLOOD CELL (test code = 4.54 x10 6/uL 3.54-5.02 N RBC) HEMOGLOBIN (test code = HGB) 13.1 g/dL 11.0-15.0 N HEMATOCRIT (test code = HCT) 40.0 % 33.0-45.0 N MEAN CELL VOLUME (test code = 88.1 fL 81.0-99.0 N MCV) MEAN CELL HGB (test code = MCH) 28.9 pg 27.0-33.0 N MEAN CELL HGB CONCETRATION 32.8 g/dL 33.0-37.0 L (test code = MCHC) RED CELL DISTRIBUTION WIDTH CV 13.1 % 11.5-14.5 N (test code = RDW) RED CELL DISTRIBUTION WIDTH SD 42.2 fL 37.0-54.0 N (test code = RDW-SD) PLATELET COUNT (test code = 258 x10 3/uL 150-400 N PLT) MEAN PLATELET VOLUME (test code 11.7 fL 7.0-9.0 H = MPV) NEUTROPHIL % (test code = NT%) 69.8 % 56.0-77.0 N IMMATURE GRANULOCYTE % (test 0.5 % 0.0-2.0 N code = IG%) LYMPHOCYTE % (test code = LY%) 17.5 % 14.0-32.0 N MONOCYTE % (test code = MO%) 11.1 % 4.8-9.0 H EOSINOPHIL % (test code = EO%) 0.8 % 0.3-3.7 N BASOPHIL % (test code = BA%) 0.3 % 0.0-2.0 N NUCLEATED RBC % (test code = 0.0 % 0-0 N NRBC%) NEUTROPHIL # (test code = NT#) 7.63 x10 3/uL 2.0-7.6 H IMMATURE GRANULOCYTE # (test 0.06 x10 3/uL 0.00-0.03 H code = IG#) LYMPHOCYTE # (test code = LY#) 1.92 x10 3/uL 1.0-3.8 N MONOCYTE # (test code = MO#) 1.22 x10 3/uL 0.1-0.8 H EOSINOPHIL # (test code = EO#) 0.09 x10 3/uL 0.0-0.2 N BASOPHIL # (test code = BA#) 0.03 x10 3/uL 0.0-0.2 N NUCLEATED RBC # (test code = 0.00 x10 3/uL 0.0-0.1 N NRBC#) COMMENTS: To be done morning of Heart Cath- CTA HEART W CN [id number] 00:00:00[facility] : 1940 Sex: F Name: EEVLYN GIBSON [facility] : 1940 Age/S: 83 / F [address] [place] [address] Blvd Unit #: [id number] Loc: [place] [address] Phys: Heaven Patel CIRCULAR SAW FILER Acct: [id number] Dis Date: Status: ADM IN PHONE #: [phone] Exam Date: 07/28/2023 1323 FAX #: [phone] Reason: herb for Exam: AV STENOSIS EXAMS: CPT CODE: [id number] CTA HEART W CN ART/GRAFTS 32388 Radiation Dose CTDIVOL = 2.12 (mGy): DLP = 44.64 (mGy-cm) Radiation Dose CTDIVOL = 2.12 (mGy): DLP = 44.64 (mGy-cm) Radiation Dose CTDIVOL = 2.12 (mGy): DLP = 44.64 (mGy-cm) PROCEDURE INFORMATION: Exam: CTA Heart And Coronary Arteries With Contrast Exam date and time: 07/28/2023 1:06 PM Age: 83 years old Clinical indication: Other: Av stenosis TECHNIQUE: Imaging protocol: CT angiography of the heart, coronary arteries, and bypass grafts (when present) with contrast including 3D image postprocessing. Standard prospective cardiac-gated CAC scoring protocol was used for image acquisition. Following intravenous contrast administration, ECG gated CTA was performed. 3D rendering (Not supervised by radiologist): MIP and/or 3D reconstructed images were created by the technologist. Radiation optimization: All CT scans at this facility use at least one of these dose optimization techniques: automated exposure control; mA and/or kV adjustment per patient size (includes targeted exams where dose is matched to clinical indication); or iterative reconstruction. Contrast material: ISO 370; Contrast volume: 100 ml; Contrast route: INTRAVENOUS (IV); Pharmacological intervention: None. REPORTING DATA: Count of CT and Cardiac NM exams in prior 12 months: This patient has received 0 known CTs and 0 known cardiac nuclear medicine studies in the 12 fri ths prior to the current study. COMPARISON: DX XR CHEST 2 V 07/28/2023 9:42 AM RADIATION DOSE METRICS: CTDI volume (mGy): 2.12 Total DLP (mGy-cm): 44.64 FINDINGS: PHASE OF CARDIAC CYCLE MEASUREMENTS OBTAINED: 35% of the R-R interval Aortic valve morphology: Tricuspid Valve calcification: Severe burden. Aortic valve calcium score: 6161 AORTIC ANNULAR MEASUREMENTS: Annular area: 427 mm2 Perimeter: 75 mm Max diameter: 27 mm Min diameter: 21 mm PAGE 1 Signed Report (CONTINUED) Name: [facility] : 1940 Age/S: 83 / F [address] [place] [address] Blvd Unit #: [id number] Loc: [id number] Phys: Heaven Patel NP Acct: [id number] Dis Date: Status: ADM IN PHONE #: [phone] Exam Date: 07/28/2023 1323 FAX #: [phone] Reason: herb for Exam: AV STENOSIS EXAMS: CPT CODE: [id number] CTA HEART W CN ART/GRAFTS 03913 (Continued) Annular/Subannular calcification: Moderate burden. There are 2 annular calcifications below the noncoronary and left cusps. Mitral annular calcification: Heavy burden Height of left main above annular plane: 12 mm Height of RCA above annular plane: [address] ridge above annular plane: 20 mm Sinus of Valsalva (left): 33 mm Sinus of Valsalva (right): 31 mm Sinus of Valsalva (noncoronary): 33 mm Mid ascending aorta diameter: 34 mm LA chamber size: Mildly dilated. Myocardium: No calcification or fatty metaplasia to suggest prior infarct. Coronary arteries: Mild-moderate burden of calcified coronary plaque. There is right coronary dominance. Pericardium: No thickening, calcification or effusion. IMPRESSION: Aortic root measurements provided forTAVR planning. Aortic annular area: 427 mm2 High risk aortic root features: None. PROCEDURE INFORMATION: Exam: CTA Chest With Contrast CTA Abdomen and Pelvis With Contrast Exam date and time: 07/28/2023 1:06 PM Age: 83 years old Clinical indication: Other: Av stenosis TECHNIQUE: Imaging protocol: Computed tomographic angiography of the chest with contrast. Exam focused on thearteries. Computed tomographic angiography of the abdomen and pelvis with contrast. Exam focused on the arteries. 3D rendering (Not supervised by radiologist): MIP and/or 3D reconstructed images were created by the technologist. Radiation optimization: All CT scans at this facility use at least one ofthese dose optimization techniques: automated exposure control; mA and/or kV adjustment per patient size (includes targeted exams where dose is matched to clinical indication); or iterative reconstruction. Contrast material: ISO 370; Contrast volume: 100 ml; Contrast route: INTRAVENOUS (IV); REPORTINGDATA: Count of CT and Cardiac NM exams in prior 12 months: This PAGE 2 Signed Report (CONTINUED) Name: [facility] 1940 Age/S: 83 / F [address] [place], [place] [address]vd Unit #: [id number] Loc: [facility] [place] [address] Phys: Heaven Patel NP Acct: [id number] Dis Date: Status: ADM IN PHONE #: [phone] Exam Date: 07/28/2023 1323 FAX #: [phone] Reason: herb for Exam: AV STENOSIS EXAMS: CPT CODE: [id number] CTA HEART W CN ART/GRAFTS 86764 (Continued) patient has received 0 known CTs and 0 known cardiac nuclear medicine studies in the 12 months prior to the current study. COMPARISON: DX XR CHEST 2 V 07/28/2023 9:42 AM RADIATION DOSE METRICS: CTDI volume (mGy): 2.12 Total DLP (mGy-cm): 44.64 FINDINGS: VASCULATURE: Aorta: No aortic aneurysm. No aortic dissection. Celiac trunk and mesenteric arteries: No occlusion or significant stenosis. Renal arteries: No occlusion or significant stenosis. Right iliofemoral arteries: Mild calcification. Moderate tortuosity. Minimal luminal diameter 8 mm at the right common femoral artery. Left iliofemoral arteries: Mild calcification. Moderate tortuosity. Minimal luminal diameter 8 mm at the left common femoral artery. CHEST: Lungs: Mild emphysema. No consolidation. No masses. Pleural spaces: Unremarkable. No pneumothorax. No pleural effusion. ABDOMEN AND PELVIS: Liver: A few well-circumscribed hypodense lesions are present throughout the liver, incompletely characterized but favoring benign hepatic cysts. Gallbladder and bile ducts: Unremarkable. No calcified stones. No ductal dilation. Pancreas: Unremarkable. No mass. No ductal dilation. Spleen: Unremarkable. No splenomegaly. Adrenal glands: Unremarkable. No mass. Kidneys and ureters: Unremarkable. No solid mass. No hydronephrosis. Bilateral renal cysts are present. Stomach and bowel: Unremarkable. No obstruction. No mucosal thickening. Intraperitoneal space: Unremarkable. No free air. No significant fluid collection. Urinary bladder: Unremarkable. No mass. Reproductive: Unremarkable as visualized. Lymph nodes: Unremarkable. No enlarged lymph nodes. Bones/joints: Unremarkable.No acute fracture. Soft tissues: Unremarkable. IMPRESSION: PAGE 3 Signed Report (CONTINUED) Name: EVELYN GIBSON [facility] Cayla Ferrara : 1940 Age/S: 83 / F [address] [place] [address] Unit #: [id number]: [place] [address] Phys: Heaven Patel CIRCULAR SAW FILER Acct: [id number] Dis Date: Status: ADM IN PHONE #: [phone] Exam Date: 07/28/20231322 FAX #: [phone] Reason: herb for Exam: AV STENOSIS EXAMS: CPT CODE: [id number] CTA HEART W CN ART/GRAFTS 12867 (Continued) 1. Patent bilateral iliofemoral a rteries without significant stenosis. 2. Mild emphysema. COMMENTS: Unless otherwise specified, incidental findings do not require dedicated imaging and follow-up. at 0418 Reported and signed by: Kar Camp M.D. CC: Heaven Patel NP; Apolinar Rankin MD Technologist:Dipak Dumont Jr, RT(R)(CT) CTDI: DLP: TrnscbDate/Time: 07/30/2023 (417) [email or web address] Orig Print D/T: S: 07/30/2023 (418) PAGE 4 Signed Report- CT ANGIO [id number] 00:00:00 [facility] : 1940 Sex: F Name: EVELYN GIBSON [facility] Cayla Ferrara : 1940 Age/S: 83 / F [address] [place] [address] Unit #: [id number] Loc: [place] [address] Phys: Heaven Patel NP Acct: [id number] Dis Date: Status: ADM IN PHONE #: [phone] Exam Date: 07/28/20231323 FAX #: [phone] Reason: AV STENOSIS EXAMS: CPT CODE: [id number] CT ANGIO CHEST 87579 Radiation Dose CTDIVOL = 2.12 (mGy): DLP = 44.64 (mGy-cm) RadiationDose CTDIVOL = 2.12 (mGy): DLP = 44.64 (mGy-cm) Radiation Dose CTDIVOL = 2.12 (mGy): DLP = 44.64 (mGy-cm) PROCEDURE INFORMATION: Exam: CTA Heart And Coronary Arteries With Contrast Exam date and time: 07/28/2023 1:06 PM Age: 83 years old Clinical indication: Other: Av stenosis TECHNIQUE: Imaging protocol: CT angiography of the heart, coronary arteries, and bypass grafts (when present) with contrast including 3D image postprocessing. Standard prospective cardiac-gated CAC scoring protocol was used forimage acquisition. Following intravenous contrast administration, ECG gated CTA was performed. 3D rendering (Not supervised by radiologist): MIP and/or 3D reconstructed images were created by the technologist. Radiation optimization: All CT scans at this facility use at least one of these dose optimization techniques: automated exposure control; mA and/or kV adjustment per patient size (includes targeted exams where dose is matched to clinical indication); or iterative reconstruction. Contrast material: ISO 370; Contrast volume: 100 ml; Contrast route: INTRAVENOUS (IV); Pharmacological intervention: None. REPORTING DATA: Count of CT and Cardiac NM exams in prior 12 months: This patient has received 0 known CTs and 0 known cardiac nuclear medicine studies in the 12 months prior to the current study. COMPARISON: DX XR CHEST 2 V 07/28/2023 9:42 AM RADIATION DOSE METRICS: CTDI volume (mGy): 2.12 Total DLP (mGy-cm): 44.64 FINDINGS: PHASE OF CARDIAC CYCLE MEASUREMENTS OBTAINED: 35% of the R-R intervalAortic valve morphology: Tricuspid Valve calcification: Severe burden. Aortic valve calcium score: 6161 AORTIC ANNULAR MEASUREMENTS: Annular area: 427 mm2 Perimeter: 75 mm Max diameter: 27 mm Min diameter: 21 mm PAGE 1 Signed Report (CONTINUED) Name: [facility] : 1940 Age/S: 83 / F [address] [place] [address] Blvd Unit #: [id number] Loc: [place] [address] Phys: Heaven Patel NP Acct: [id number] Dis Date: Status: ADM IN PHONE #: [phone] Exam Date: 07/28/2023 1324 FAX #: [phone] Reason: AV STENOSIS EXAMS: CPT CODE: [id number] CT ANGIO CHEST 56745 (Continued) Annular/Subannular calcification: Moderate burden. There are 2 annular calcifications below the noncoronary and left cusps. Mitral annular calcification: Heavy burden Height of left main above annular plane: 12 mm Height of RCA above annular plane: [address] ridge above annular plane: 20 mm Sinusof Valsalva (left): 33 mm Sinus of Valsalva (right): 31 mm Sinus of Valsalva (noncoronary): 33 mm Mid ascending aorta diameter: 34 mm LA chamber size: Mildly dilated. Myocardium: No calcification or fatty metaplasia to suggest prior infarct. Coronary arteries: Mild-moderate burden of calcified coronary plaque. There is right coronary dominance. Pericardium: No thickening, calcification or effusion. IMPRESSION: Aortic root measurements provided for TAVR planning. Aortic annular area: 427 mm2 High risk aortic root features: None. PROCEDURE INFORMATION: Exam: CTA Chest With Contrast CTA Abdomen and Pelvis With Contrast Exam date and time: 07/28/2023 1:06 PM Age: 83 years old Clinical indication: Other: Av stenosis TECHNIQUE: Imaging protocol: Computed tomographic angiographyof the chest with contrast. Exam focused on the arteries. Computed tomographic angiography of the abdomen and pelvis with contrast. Exam focused on the arteries. 3D rendering (Not supervised by radiologist): MIP and/or 3D reconstructed images were created by the technologist. Radiation optimization: All CT scans at this facility use at least one of these dose optimization techniques: automated exposure control; mA and/or kV adjustment per patient size (includes targeted exams where dose is matched to clinical indication); or iterative reconstruction. Contrast material: ISO 370; Contrast volume: 100ml; Contrast route: INTRAVENOUS (IV); REPORTING DATA: Count of CT and Cardiac NM exams in prior 12 months: This PAGE 2 Signed Report (CONTINUED) Name: EVELYN GIBSON [facility] [place] : 1940 Age/S: 83 / F [address] [place] [address] Unit #: [id number] Loc: [place] [address] Phys: Heaven Patel NP Acct: [id number] Dis Date: Status: ADM IN PHONE #: [phone] Exam Date: 07/28/2023 1324 FAX #:[phone] Reason: AV STENOSIS EXAMS: CPT CODE: [id number] CT ANGIO CHEST 80472 (Continued) patient has received 0 known CTs and 0 known cardiac nuclear medicine studies in the 12 months prior to thecurrent study. COMPARISON: DX XR CHEST 2 V 07/28/2023 9:42 AM RADIATION DOSE METRICS: CTDI volume (mGy): 2.12 Total DLP (mGy-cm): 44.64 FINDINGS: VASCULATURE: Aorta: No aortic aneurysm. No aortic dissection. Celiac trunk and mesenteric arteries: No occlusion or significant stenosis. Renal arteries: Noocclusion or significant stenosis. Right iliofemoral arteries: Mild calcification. Moderate tortuosity. Minimal luminal diameter 8 mm at the right common femoral artery. Left iliofemoral arteries: Mildcalcification. Moderate tortuosity. Minimal luminal diameter 8 mm at the left common femoral artery.CHEST: Lungs: Mild emphysema. No consolidation. No masses. Pleural spaces: Unremarkable. No pneumothorax. No pleural effusion. ABDOMEN AND PELVIS: Liver: A few well-circumscribed hypodense lesions are present throughout the liver, incompletely characterized but favoring benign hepatic cysts. Gallbladder and bile ducts: Unremarkable. No calcified stones. No ductal dilation. Pancreas: Unremarkable. No mass. No ductal dilation. Spleen: Unremarkable. No splenomegaly. Adrenal glands: Unremarkable. No mass. Kidneys and ureters: Unremarkable. No solid mass. No hydronephrosis. Bilateral renal cysts are present. Stomach and bowel: Unremarkable. No obstruction. No mucosal thickening. Intraperitoneal space: Unremarkable. No free air. No significant fluid collection. Urinary bladder: Unremarkable. No mass. Re productive: Unremarkable as visualized. Lymph nodes: Unremarkable. No enlarged lymph nodes. Bones/joints: Unremarkable. No acute fracture. Soft tissues: Unremarkable. IMPRESSION: PAGE 3 Signed Report (CONTINUED) Name: [facility] : 1940 Age/S: 83 / F [address] [place] [address] Unit #: [id number] Loc: [place] [address] Phys: Heaven Patel NP Acct: [id number] Dis Date: Status: ADM IN PHONE #: [phone] Exam Date: 07/28/20231323 FAX #: [phone] Reason: AV STENOSIS EXAMS: CPT CODE: [id number] CT ANGIO CHEST 63822 (Continued) 1. Patent bilateral iliofemoral arteries without significant stenosis. 2. Mild emphysema. COMMENTS: Unless otherwise specified, incidental findings do not require dedicated imaging and follow-up. at 0418 Reported and signed by: Kar Camp M.D. CC: Heaven Almanza NP; Apolinar Rankin MD Technologist:Dipak Dumont Jr, RT(R)(CT) CTDI: DLP: Trnscb Date/Time: 07/30/2023 (417) [email or web address] Orig Print D/T: S: 07/30/2023 (07) PAGE 4 Signed Report- CTA ABD PEL W [id number] 00:00:00 [facility] CAYLA FERRARAName: EVELYN GIBSON : 1940 Sex: F Name: EVELYN GIBSON [facility] Cayla Ferrara : 1940 Age/S: 83 / F [address] [place] [address] Unit #: [id number] Loc: [place] [address] Phys: Heaven Patel CIRCULAR SAW FILER Acct: [id number] Dis Date: Status: ADM IN PHONE #: [phone] Exam Date: 07/28/20231323 FAX #: [phone] Reason: AV STENOSIS EXAMS: CPT CODE: [id number] CTA ABD PEL W CONT 20517 Radiation Dose CTDIVOL = 2.12 (mGy): DLP = 44.64 (mGy-cm) Radiation Dose CTDIVOL = 2.12 (mGy): DLP = 44.64 (mGy-cm) Radiation Dose CTDIVOL = 2.12 (mGy): DLP = 44.64 (mGy-cm) PROCEDURE INFORMATION: Exam: CTA Heart And Coronary Arteries With Contrast Exam date and time: 07/28/2023 1:06 PM Age: 83 years old Clinical indication: Other: Av stenosis TECHNIQUE: Imaging protocol: CT angiography of the heart, coronary arteries, and bypass grafts (when present) with contrast including 3D image postprocessing. Standard prospective cardiac-gated CAC scoring protocol was used for image acquisition. Following intravenous contrast administration, ECG gated CTA was performed. 3D rendering (Not supervised by radiologist): MIP and/or 3D reconstructed images were created by the technologist. Radiation optimization: All CT scans at this facility use at least one of these dose optimization techniques: automated exposure control; mA and/or kV adjustment per patient size (includes targeted exams where dose is matched to clinical indication); or iterative reconstruction. Contrastmaterial: ISO 370; Contrast volume: 100 ml; Contrast route: INTRAVENOUS (IV); Pharmacological intervention: None. REPORTING DATA: Count of CT and Cardiac NM exams in prior 12 months: This patient has re ceived 0 known CTs and 0 known cardiac nuclear medicine studies in the 12 months prior to the current study. COMPARISON: DX XR CHEST 2 V 07/28/2023 9:42 AM RADIATION DOSE METRICS: CTDI volume (mGy): 2.12 Total DLP (mGy-cm): 44.64 FINDINGS: PHASE OF CARDIAC CYCLE MEASUREMENTS OBTAINED: 35% of the R-R interval Aortic valve morphology: Tricuspid Valve calcification: Severe burden. Aortic valve calcium score: 6161 AORTIC ANNULAR MEASUREMENTS: Annular area: 427 mm2 Perimeter: 75 mm Max diameter: 27 mm Min diameter: 21 mm PAGE 1 Signed Report (CONTINUED) Name: EVELYN GIBSON [facility] Cayla Ferrara : 1940 Age/S: 83 / F [address] [place], [place] [address]vd Unit #: [id number] Loc: [place] [address] Phys: Heaven Patel NP Acct: [id number] Dis Date: Status: ADM IN PHONE #: [phone] Exam Date: 07/28/2023 1324 FAX #: [phone] Reason: AV STENOSIS EXAMS: CPT CODE: [id number] CTA ABD PEL W CONT 20573 (Continued) Annular/Subannular calcification: Moderate burden. There are 2 annular calcifications below the noncoronary and left cusps. Mitral annular calcification: Heavy burden Height of left main above annular plane: 12 mm Height of RCA above annular plane: [address] ridge above annular plane: 20 mm Sinus of Valsalva (left): 33 mm Sinus of Valsalva (right): 31 mm Sinus of Valsalva (noncoronary): 33 mm Mid ascending aorta diameter: 34 mm LA chamber size: Mildly dilated. Myocardium: No calcification or fatty metaplasia to suggest prior infarct. Coronary arteries: Mild-moderate burden of calcified coronary plaque. There is right coronary dominance. Pericardium: No thickening, calcification or effusion. IMPRESSION: Aortic root measurements provided for TAVR planning. Aortic annular area: 427 mm2 High risk aortic root features: None. PROCEDURE INFORMATION: Exam: CTA Chest With Contrast CTA Abdomen and Pelvis With Contrast Exam date and time: 07/28/2023 1:06 PM Age: 83 years old Clinical indication: Other: Av stenosis TECHNIQUE: Imaging protocol: Computed tomographic angiography of the chest with contrast. Exam focused on the arteries. Computed tomographic angiography of the abdomen and pelvis with contrast. Exam focused on the arteries. 3D rendering (Not supervised byradiologist): MIP and/or 3D reconstructed images were created by the technologist. Radiation optimization: All CT scans at this facility use at least one of these dose optimization techniques: automated exposure control; mA and/or kV adjustment per patient size (includes targeted exams where dose is matched to clinical indication); or iterative reconstruction. Contrast material: ISO 370; Contrast volume: 100 ml; Contrast route: INTRAVENOUS (IV); REPORTING DATA: Count of CT and Cardiac NM exams in prior 12 months: This PAGE 2 Signed Report (CONTINUED) Name: EVELYN GIBSON [facility] : 1940 Age/S: 83 / F [address] [place] [address] Unit #: [id number] Loc: [place] [address] Phys: Heaven Patel CIRCULAR SAW FILER Acct: [id number] Dis Date: Status: ADM IN PHONE #: [phone] Exam Date: 07/28/2023 1324 FAX #: [phone] Reason: AV STENOSIS EXAMS: CPT CODE: [id number] CTA ABD PEL W CONT 87520 (Continued) patient has received 0 known CTs and 0 known cardiac nuclear medicine studies in the 12 months prior to the current study. COMPARISON: DX XR CHEST 2 V 07/28/2023 9:42 AM RADIATION DOSE METRICS: CTDI volume (mGy): 2.12 Total DLP (mGy-cm): 44.64 FINDINGS: VASCULATURE: Aorta: No aortic aneurysm. No aortic dissection. Celiac trunk and mesenteric arteries: No occlusion or significant stenosis. Renal ar teries: No occlusion or significant stenosis. Right iliofemoral arteries: Mild calcification. Moderate tortuosity. Minimal luminal diameter 8 mm at the right common femoral artery. Left iliofemoral arteries: Mild calcification. Moderate tortuosity. Minimal luminal diameter 8 mm at the left common femoral artery. CHEST: Lungs: Mild emphysema. No consolidation. No masses. Pleural spaces: Unremarkable.No pneumothorax. No pleural effusion. ABDOMEN AND PELVIS: Liver: A few well-circumscribed hypodense lesions are present throughout the liver, incompletely characterized but favoring benign hepatic cysts. Gallbladder and bile ducts: Unremarkable. No calcified stones. No ductal dilation. Pancreas: Unremarkable. No mass. No ductal dilation. Spleen: Unremarkable. No splenomegaly. Adrenal glands: Unremarkable. No mass. Kidneys and ureters: Unremarkable. No solid mass. No hydronephrosis. Bilateral renal cysts are present. Stomach and bowel: Unremarkable. No obstruction. No mucosal thickening. Intraperitoneal space: Unremarkable. No free air. No significant fluid collection. Urinary bladder: Unremarkable. No mass. Reproductive: Unremarkable as visualized. Lymph nodes: Unremarkable. No enlarged lymph nodes. Bones/joints: Unremarkable. No acute fracture. Soft tissues: Unremarkable. IMPRESSION: PAGE 3 Signed Report (CONTINUED) Name: EVELYN GIBSON [facility] [place] : 1940 Age/S: 83 / F [address] [place] [address] Unit #: [id number] Loc: [place] [address] Phys: Heaven Patel NP Acct: [id number] Dis Date: Status: ADM IN PHONE #: [phone] Exam Date: 07/28/2023 1324 FAX #: [phone] Reason:AV STENOSIS EXAMS: CPT CODE: [id number] CTA ABD PEL W CONT 52615 (Continued) 1. Patent bilateral iliofemoral arteries without significant stenosis. 2. Mild emphysema. COMMENTS: Unless otherwise specified, incidental findings do not require dedicated imaging and follow-up. at 0418 Reported and signed by: Kar Camp M.D. CC: Heaven Patel CIRCULAR SAW FILER; Apolinar Rankin MD Technologist:Dipak Dumnot Jr, RT(R)(CT) CTDI: DLP:Trnscb Date/Time: 07/30/2023 (041) [email or web address] Orig Print D/T: S: 07/30/2023 (07) PAGE 4 Signed ReportPROTHROMBIN TIME 2023-07-29 21:46:00 Test Item Value Reference Range Interpretation Comments PROTHROMBIN TIME 11.8 SECONDS 9.3-12.9 N PATIENT (test code = PTP) INTERNATIONAL NORMAL 1.1 0.8-1.2 N TARGET INR BY RATIO (test code = INDICATIO N Indication INR) INR1. Prophylax is of venous thrombos is 2.0 - 3.0 (orthoped ic surgery), Proph ylaxis of venous throm bosis (other than hig h-risk surgery), Treat ment of Deep Vein Thrombosis/Pulm onary Embolism, Preve ntion of systemic emb olism - Tissue heart va lves, Acute Myocardia l Infarction (to prevent systemic emboli sm), Valvular heart disease, Atrial Fibrillation, Bileaflet mecha nical valve in aortic position.2. Mec hanical prosthetic valv es (high risk), 2. 5 - 3.5 Presence of Lup us Anticoagulant o r Antiphospholipi d Antibodies, Pre vention of systemic emb olism - Acute Myocardia l Infarction (to prevent recurrent infar ct). 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 [facility] GLUCOSE [id number] 12:26:00 Test Item Value Reference Range Interpretation Comments GLUCOSE BEDSIDE (test 102 MG/DL 70-110 N Perfor med by certified code = GLUBED) 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 [facility] GLUCOSE [id number] 08:15:00 Test Item Value Reference Range Interpretation Comments GLUCOSE BEDSIDE (test 109 MG/DL 70-110 N Perfor med by certified code = GLUBED) 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 [facility] BASIC METABOLIC [id number] 03:54:00 Test Item Value Reference Range Interpretation Comments SODIUM (test code = 129 mEq/L 134-147 L NA) POTASSIUM (test code 4.0 mEq/L 3.4-5.0 N = K) CHLORIDE (test code 94 mEq/L 100-108 L = CL) CARBON DIOXIDE (test 29 mEq/l 21-33 N code = CO2) ANION GAP (test code 10 0-20 N = GAP) GLUCOSE (test code = 93 mg/dL 77-141 N NOTE: N EW NORMAL RANGE GLU) BLOOD UREA NITROGEN 15 mg/dL 7-25 N NOTE: NE W NORMAL RANGE (test code = BUN) GLOMERULAR 62.7 70-80 L The Glomerular FILTRATION RATE Filtration R ate is a (test code = GFR) calculated parameterbased on serum Creatinine, pat ient age and sex. GFR va luesless than 60 mL/min/ 1.73 square meters a re indicative ofCh ronic Kidney Disease. Values less than 15 mL/min/1.73squa re meters indicate Kidney failure. The calculation forGFR is based on the CKD-EPI (2020) calculat ion. This formulais race indifferent and is the recommended for bernard for GFRby the [facility] on for Adults.The GFR will not calculate if th e sex is unknown or if thepatient's ag e is <18 years. CREATININE (test 0.9 mg/dL 0.6-1.3 N code = CREAT) CALCIUM (test code = 9.0 mg/dL 8.0-10.5 N CA) [id number] 03:54:00 Test Item Value Reference Range Interpretation Comments MAGNESIUM (test code = 2.08 mg/dL 1.6-2.6 N NOTE: NEW NORMAL MAG) RANGE CBC W/AUTO [id number] 03:06:00 Test Item Value Reference Range Interpretation Comments WHITE BLOOD CELL (test code = 12.3 x10 3/uL 4.5-11.0 H WBC) RED BLOOD CELL (test code = 4.35 x10 6/uL 3.54-5.02 N RBC) HEMOGLOBIN (test code = HGB) 12.8 g/dL 11.0-15.0 N HEMATOCRIT (test code = HCT) 38.3 % 33.0-45.0 N MEAN CELL VOLUME (test code = 88.0 fL 81.0-99.0 N MCV) MEAN CELL HGB (test code = MCH) 29.4 pg 27.0-33.0 N MEAN CELL HGB CONCETRATION 33.4 g/dL 33.0-37.0 N (test code = MCHC) RED CELL DISTRIBUTION WIDTH CV 13.1 % 11.5-14.5 N (test code = RDW) RED CELL DISTRIBUTION WIDTH SD 42.5 fL 37.0-54.0 N (test code = RDW-SD) PLATELET COUNT (test code = 254 x10 3/uL 150-400 N PLT) MEAN PLATELET VOLUME (test code 11.6 fL 7.0-9.0 H = MPV) NEUTROPHIL % (test code = NT%) 70.8 % 56.0-77.0 N IMMATURE GRANULOCYTE % (test 0.4 % 0.0-2.0 N code = IG%) LYMPHOCYTE % (test code = LY%) 16.5 % 14.0-32.0 N MONOCYTE % (test code = MO%) 11.4 % 4.8-9.0 H EOSINOPHIL % (test code = EO%) 0.6 % 0.3-3.7 N BASOPHIL % (test code = BA%) 0.3 % 0.0-2.0 N NUCLEATED RBC % (test code = 0.0 % 0-0 N NRBC%) NEUTROPHIL # (test code = NT#) 8.70 x10 3/uL 2.0-7.6 H IMMATURE GRANULOCYTE # (test 0.05 x10 3/uL 0.00-0.03 H code = IG#) LYMPHOCYTE # (test code = LY#) 2.03 x10 3/uL 1.0-3.8 N MONOCYTE # (test code = MO#) 1.40 x10 3/uL 0.1-0.8 H EOSINOPHIL # (test code = EO#) 0.07 x10 3/uL 0.0-0.2 N BASOPHIL # (test code = BA#) 0.04 x10 3/uL 0.0-0.2 N NUCLEATED RBC # (test code = 0.00 x10 3/uL 0.0-0.1 N NRBC#) GLUCOSE [id number] 20:50:00 Test Item Value Reference Range Interpretation Comments GLUCOSE BEDSIDE (test 121 MG/DL 70-110 H Perfor med by certified code = GLUBED) 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 [facility] GLUCOSE [id number] 17:11:00 Test Item Value Reference Range Interpretation Comments GLUCOSE BEDSIDE (test 116 MG/DL 70-110 H Perfor med by certified code = GLUBED) 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 [facility] - XR CHEST 2 [id number] 11:48:00 [facility] : 1940 Sex: F FAX: Heaven Patel NP [phone] [place]: St: [facility] FAX: Apolinar Banuelos MD [phone] Name: EVELYN GIBSON [facility] : 1940 Age/S: 83/F [address] [place] [address] Unit #: [id number] Loc: [address] [place] [address] Phys: Heaven Patel NP Acct: [id number] Dis Date: Status: ADM IN PHONE #: [phone] Exam Date: 07/28/2023 1011 FAX #: [phone] Reason: Emesis x2 EXAMS: CPT CODE: [id number] XR CHEST 2V 25862 EXAM: - XR CHEST 2 V CLINICAL HISTORY: Emesis x2 TECHNIQUE: Frontal and Lateral views. COMPARISON: Chest radiograph 07/26/2023 LOCATION: C4 FINDINGS: Left chest wall surgical clips are present.The trachea appears normal. The mediastinum and cardiac silhouette are within normal limits for size. No confluent airspace opacities. No pleural effusions. Visualized soft tissues and osseous structures are grossly unremarkable. IMPRESSION: No acute cardiopulmonary process. Electronically Signedby Mauricio Narvaez on 07/28/2023 at 1148 Reported and signed by: Torrey Narvaez D.O. CC: Heaven Patel NP; Apolinar Rankin MD Technologist: RT Michele(Viola) Trnscrd Date/Time/By: 07/28/2023 (1148) : By: [email or web address] Orig Print D/T: S: 07/28/2023 (8208) PAGE 1 Signed ReportGLUCOSE [id number] 11:30:00 Test Item Value Reference Range Interpretation Comments GLUCOSE BEDSIDE (test 142 MG/DL 70-110 H Perfor med by certified code = GLUBED) 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 [facility] GLUCOSE [id number] 08:06:00 Test Item Value Reference Range Interpretation Comments GLUCOSE BEDSIDE (test 117 MG/DL 70-110 H Perfor med by certified code = GLUBED) 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 [facility] COMPREHENSIVE METABOLIC [id number] 05:58:00 Test Item Value Reference Range Interpretation Comments SODIUM (test code = 130 mEq/L 134-147 L NA) POTASSIUM (test code 3.8 mEq/L 3.4-5.0 N = K) CHLORIDE (test code 93 mEq/L 100-108 L = CL) CARBON DIOXIDE (test 31 mEq/l 21-33 N code = CO2) ANION GAP (test code 10 0-20 N = GAP) GLUCOSE (test code = 100 mg/dL 77-141 NOTE: N EW NORMAL RANGE GLU) BLOOD UREA NITROGEN 18 mg/dL 7-25 N NOTE: NE W NORMAL RANGE (test code = BUN) GLOMERULAR 72.2 70-80 N The Glomerular FILTRATION RATE Filtration R ate is a (test code = GFR) calculated parameterbased on serum Creatinine, pat ient age and sex. GFR va luesless than 60 mL/min/ 1.73 square meters a re indicative ofCh ronic Kidney Disease. Values less than 15 mL/min/1.73squa re meters indicate Kidney failure. The calculation for GFR is based on the CK D-EPI (2020) calculat ion. This formulais race indifferent and is the recommended for bernard for GFRby the [facility]ney Foundati on for Adults.The GFR will not calculate if th e sex is unknown or if thepatient's ag e is <18 years. CREATININE (test 0.8 mg/dL 0.6-1.3 N code = CREAT) TOTAL PROTEIN (test 7.3 g/dL 6.4-8.2 N code = PROT) ALBUMIN (test code = 3.60 g/dL 3.4-5.0 N ALB) CALCIUM (test code = 9.3 mg/dL 8.0-10.5 N CA) BILIRUBIN TOTAL 0.60 mg/dL 0.0-1.0 N (test code = BILT) SGOT/AST (test code 22 IUnit/L 8-34 N NOTE: NE W NORMAL RANGE = AST) SGPT/ALT (test code 14 IUnit/L 10-49 N NOTE: NE W NORMAL RANGE = ALT) ALKALINE PHOSPHATASE 60 IUnit/L 20-125 N TOTAL (test code = ALKP) [id number] 05:58:00 Test Item Value Reference Range Interpretation Comments MAGNESIUM (test code = 2.07 mg/dL 1.6-2.6 N NOTE: NEW NORMAL MAG) RANGE CBC W/AUTO [id number] 05:29:00 Test Item Value Reference Range Interpretation Comments WHITE BLOOD CELL (test code = 16.0 x10 3/uL 4.5-11.0 H WBC) RED BLOOD CELL (test code = 4.63 x10 6/uL 3.54-5.02 N RBC) HEMOGLOBIN (test code = HGB) 13.4 g/dL 11.0-15.0 N HEMATOCRIT (test code = HCT) 40.3 % 33.0-45.0 N MEAN CELL VOLUME (test code = 87.0 fL 81.0-99.0 N MCV) MEAN CELL HGB (test code = 28.9 pg 27.0-33.0 N MCH) MEAN CELL HGB CONCETRATION 33.3 g/dL 33.0-37.0 N (test code = MCHC) RED CELL DISTRIBUTION WIDTH CV 13.2 % 11.5-14.5 N (test code = RDW) RED CELL DISTRIBUTION WIDTH SD 41.8 fL 37.0-54.0 N (test code = RDW-SD) PLATELET COUNT (test code = 280 x10 3/uL 150-400 N PLT) MEAN PLATELET VOLUME (test 11.8 fL 7.0-9.0 H code = MPV) NEUTROPHIL % (test code = NT%) 75.6 % 56.0-77.0 N IMMATURE GRANULOCYTE % (test 0.4 % 0.0-2.0 N code = IG%) LYMPHOCYTE % (test code = LY%) 12.8 % 14.0-32.0 L MONOCYTE % (test code = MO%) 10.8 % 4.8-9.0 H EOSINOPHIL % (test code = EO%) 0.2 % 0.3-3.7 L BASOPHIL % (test code = BA%) 0.2 % 0.0-2.0 N NUCLEATED RBC % (test code = 0.0 % 0-0 N NRBC%) NEUTROPHIL # (test code = NT#) 12.09 x10 3/uL 2.0-7.6 H IMMATURE GRANULOCYTE # (test 0.07 x10 3/uL 0.00-0.03 H code = IG#) LYMPHOCYTE # (test code = LY#) 2.04 x10 3/uL 1.0-3.8 N MONOCYTE # (test code = MO#) 1.72 x10 3/uL 0.1-0.8 H EOSINOPHIL # (test code = EO#) 0.03 x10 3/uL 0.0-0.2 N BASOPHIL # (test code = BA#) 0.03 x10 3/uL 0.0-0.2 N NUCLEATED RBC # (test code = 0.00 x10 3/uL 0.0-0.1 N NRBC#) GLUCOSE [id number] 20:32:00 Test Item Value Reference Range Interpretation Comments GLUCOSE BEDSIDE (test 156 MG/DL 70-110 H Perfor med by certified code = GLUBED) 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 [facility] GLUCOSE [id number] 17:11:00 Test Item Value Reference Range Interpretation Comments GLUCOSE BEDSIDE (test 115 MG/DL 70-110 H Perfor med by certified code = GLUBED) 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 [facility] GLUCOSE [id number] 12:00:00 Test Item Value Reference Range Interpretation Comments GLUCOSE BEDSIDE (test 134 MG/DL 70-110 H Perfor med by certified code = GLUBED) 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 [facility] BASIC METABOLIC [id number] 09:35:00 Test Item Value Reference Range Interpretation Comments SODIUM (test code = 129 mEq/L 134-147 L NA) POTASSIUM (test code 3.9 mEq/L 3.4-5.0 N = K) CHLORIDE (test code 93 mEq/L 100-108 L = CL) CARBON DIOXIDE (test 28 mEq/l 21-33 N code = CO2) ANION GAP (test code 12 0-20 N = GAP) GLUCOSE (test code = 163 mg/dL 77-141 H NOTE: N EW NORMAL RANGE GLU) BLOOD UREA NITROGEN 16 mg/dL 7-25 N NOTE: NE W NORMAL RANGE (test code = BUN) GLOMERULAR 62.7 70-80 L The Glomerular FILTRATION RATE Filtration R ate is a (test code = GFR) calculated parameterbased on serum Creatinine, pat ient age and sex. GFR va luesless than 60 mL/min/ 1.73 square meters a re indicative ofCh ronic Kidney Disease. Values less than 15 mL/min/1.73squa re meters indicate Kidney failure. The calculation forGFR is based on the CKD-EPI (2020) calculat ion. This formulais race indifferent and is the recommended for bernard for GFRby the [facility] Kidney Foundati on for Adults.The GFR will not calculate if th e sex is unknown or if thepatient's ag e is <18 years. CREATININE (test 0.9 mg/dL 0.6-1.3 N code = CREAT) CALCIUM (test code = 9.2 mg/dL 8.0-10.5 N CA) [id number] 09:35:00 Test Item Value Reference Range Interpretation Comments MAGNESIUM (test code = 1.87 mg/dL 1.6-2.6 N NOTE: NEW NORMAL MAG) RANGE CBC W/AUTO [id number] 09:05:00 Test Item Value Reference Range Interpretation Comments WHITE BLOOD CELL (test code = 18.9 x10 3/uL 4.5-11.0 H WBC) RED BLOOD CELL (test code = 4.96 x10 6/uL 3.54-5.02 N RBC) HEMOGLOBIN (test code = HGB) 14.4 g/dL 11.0-15.0 N HEMATOCRIT (test code = HCT) 43.4 % 33.0-45.0 N MEAN CELL VOLUME (test code = 87.5 fL 81.0-99.0 N MCV) MEAN CELL HGB (test code = 29.0 pg 27.0-33.0 N MCH) MEAN CELL HGB CONCETRATION 33.2 g/dL 33.0-37.0 N (test code = MCHC) RED CELL DISTRIBUTION WIDTH CV 13.2 % 11.5-14.5 N (test code = RDW) RED CELL DISTRIBUTION WIDTH SD 42.3 fL 37.0-54.0 N (test code = RDW-SD) PLATELET COUNT (test code = 318 x10 3/uL 150-400 N PLT) MEAN PLATELET VOLUME (test 11.3 fL 7.0-9.0 H code = MPV) NEUTROPHIL % (test code = NT%) 82.8 % 56.0-77.0 H IMMATURE GRANULOCYTE % (test 0.6 % 0.0-2.0 N code = IG%) LYMPHOCYTE % (test code = LY%) 9.6 % 14.0-32.0 L MONOCYTE % (test code = MO%) 6.5 % 4.8-9.0 N EOSINOPHIL % (test code = EO%) 0.3 % 0.3-3.7 N BASOPHIL % (test code = BA%) 0.2 % 0.0-2.0 N NUCLEATED RBC % (test code = 0.0 % 0-0 N NRBC%) NEUTROPHIL # (test code = NT#) 15.62 x10 3/uL 2.0-7.6 H IMMATURE GRANULOCYTE # (test 0.11 x10 3/uL 0.00-0.03 H code = IG#) LYMPHOCYTE # (test code = LY#) 1.81 x10 3/uL 1.0-3.8 N MONOCYTE # (test code = MO#) 1.23 x10 3/uL 0.1-0.8 H EOSINOPHIL # (test code = EO#) 0.05 x10 3/uL 0.0-0.2 N BASOPHIL # (test code = BA#) 0.04 x10 3/uL 0.0-0.2 N NUCLEATED RBC # (test code = 0.00 x10 3/uL 0.0-0.1 N NRBC#) MANUAL DIFF REQUIRED (test NO code = MDIFF) GLUCOSE [id number] 08:14:00 Test Item Value Reference Range Interpretation Comments GLUCOSE BEDSIDE (test 107 MG/DL 70-110 N Perfor med by certified code = GLUBED) 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 [facility] GLUCOSE [id number] 20:56:00 Test Item Value Reference Range Interpretation Comments GLUCOSE BEDSIDE (test 135 MG/DL 70-110 H Perfor med by certified code = GLUBED) 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 [facility] GLUCOSE [id number] 20:19:00 Test Item Value Reference Range Interpretation Comments GLUCOSE BEDSIDE (test 181 MG/DL 70-110 H Perfor med by certified code = GLUBED) 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 [facility] GLUCOSE [id number] 17:56:00 Test Item Value Reference Range Interpretation Comments GLUCOSE BEDSIDE (test 129 MG/DL 70-110 H Perfor med by certified code = GLUBED) 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 [facility] UA RFLX MICR CULT IF [id number] 13:06:00 Test Item Value Reference Range Interpretation Comments UA COLOR (test code = COLU) YELLOW YEL/STRAW UA APPEARANCE (test code = SL CLOUDY CLEAR APPU) UA GLUCOSE DIPSTICK (test code NEGATIVE NEGATIVE = DGLUU) UA BILIRUBIN DIPSTICK (test NEGATIVE NEGATIVE code = BILU) UA KETONE DIPSTICK (test code NEGATIVE NEGATIVE = KETU) UA SPECIFIC GRAVITY (test code 1.017 1.005-1.030 N = SGU) UA BLOOD DIPSTICK (test code = 1+ NEGATIVE A RUDY) UA PH DIPSTICK (test code = 5.0 5.0-7.0 N MANI) UA PROTEIN DIPSTICK (test code NEGATIVE NEGATIVE = PROU) UA UROBILINIOGEN DIPSTICK 0.2 mg/dL 0.2-1.0 (test code = URO) UA NITRITE DIPSTICK (test code NEGATIVE NEGATIVE = ANASTASIA) UA LEUKOCYTE ESTERASE DIPSTICK 1+ NEGATIVE A (test code = LEUU) UA WBC (test code = WBCU) 4-9 WBC/HPF 0-3 A UA RBC (test code = RBCU) 0-3 RBC/HPF 0-3 UA WBC NO REFLEX (test code = 4-9 WBC/HPF 0-3 A WBCUCL) UA BACTERIA (test code = BACU) NONE SEEN /HPF NONE SEEN UA SQUAMOUS CELLS (test code = 6-10 /HPF NONE SEEN A SQU) UA MUCUS (test code = MUCU) TRACE /LPF NONE SEEN Indication for culture: RiskForSepsis-no oth srcSpecimen Description: CLEAN CATCHGLUCOSE [id number] 12:39:00 Test Item Value Reference Range Interpretation Comments GLUCOSE BEDSIDE (test 142 MG/DL 70-110 H Perfor med by certified code = GLUBED) 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 [facility] HGBA1C%2023-07-26 11:31:00 Test Item Value Reference Range Interpretation Comments HGBA1C% (test code = HGBA1C%) 5.4 %A1C 4.8-6.0 N - XR CHEST 2 [id number] 11:24:00 [facility] : 1940 Sex: F FAX: Heaven Patel NP [phone] [place]: St: [facility] FAX: Apolinar Banuelos MD [phone] Name: EVELYN GIBSON [facility] : 1940 Age/S: 83/F [address] [place] [address] Unit #: [id number] Loc: G.4434 [place] [address] Phys: Heaven Patel NP Acct: [id number] Dis Date: Status: ADM IN PHONE #: [phone] Exam Date: 07/26/2023 1109 FAX #: [phone] Reason: Cardiac Surgery Pre Op EXAMS: CPT CODE: [id number] XR CHEST 2 V [id number] EXAM: - XR CHEST 2 V HISTORY: Cardiac Surgery Pre Op Location code:C3 COMPARISON: None available time of interpretation. FINDINGS: PA and lateral view of the chest is provided. Heart size and vascularity are within normal limits. Low lung volumes with mild bronchovascular crowding. The lungs are clear of focal consolidation. No effusion, pneumothorax, or acute osseous abnormality. Surgical clips are noted in the left axillary region. IMPRESSION: 1. No radiographic evidence of acute cardiopulmonary process. at 1124 Reported and signed by: Toya Ybarra M.D. CC: Heaven Patel NP; Apolinar Rankin MD Technologist: Heaven Goff, RT(R); Lynn Red RT(R) Trnscrd Date/Time/By: 07/26/2023(1124) : By: [email or web address] Orig Print D/T: S: 07/26/2023 (1127) PAGE 1 Signed Report- DUP EXTRACRANIAL [id number] 11:12:00 [facility] : 1940 Sex: F Name: EVELYN GIBSON [facility] Cayla Ferrara : 1940 Age/S: 83 / F [address] [place] [address] Unit #: [id number] Loc: [place] [address] Phys: Heaven Patel NP Acct: [id number] Dis Date: Status: ADM IN PHONE #: [phone] Exam Date: 07/26/2023 1105 FAX #: [phone] Reason: Cardiac Surgery Pre Op EXAMS: CPT CODE: [id number] DUP EXTRACRANIAL [place] [id number] EXAM: CAROTID DOPPLER INDICATION: Cardiac Surgery Pre Op COMPARISON: None available TECHNIQUE: Grayscale, color Doppler, and duplex sonography of the extracranial carotid vessels was performed. FINDINGS: Right side: Plaque: Minimal Peak systolic velocities (cm/sec): CCA: 59.1 ICA: 61.2 ICA/CCA ratio: 0.9 Vertebral artery: Antegrade Left side: Plaque: Minimal Peak systolic velocities (cm/sec): CCA: 54.8 ICA: 67.3 ICA/CCA ratio: 0.8 Vertebral artery: Antegrade IMPRESSION: Minimal atherosclerotic disease within the bilateral carotid bifurcations. No evidence of hemodynamically significant (greater than 50%) stenosis. LOCATION: B2 at 1112 Reported and signed by: Tammie Francis M.D.CC: Heaven Patel NP; Apolinar Rankin MD Technologist: Sonia Hathaway RDMS(A)(BR) Trnscb Date/Time: 07/26/2023 (1112) 16 Orig Print D/T: S: 07/26/2023 (0049) Probe: PAGE 1 Signed ReportCOMPREHENSIVE METABOLIC [id number] 10:47:00 Test Item Value Reference Range Interpretation Comments SODIUM (test code = 129 mEq/L 134-147 L NA) POTASSIUM (test code 4.0 mEq/L 3.4-5.0 N = K) CHLORIDE (test code 92 mEq/L 100-108 L = CL) CARBON DIOXIDE (test 31 mEq/l 21-33 N code = CO2) ANION GAP (test code 11 0-20 N = GAP) GLUCOSE (test code = 145 mg/dL 77-141 H NOTE: N EW NORMAL RANGE GLU) BLOOD UREA NITROGEN 27 mg/dL 7-25 H NOTE: NE W NORMAL RANGE (test code = BUN) GLOMERULAR 49.2 70-80 L The Glomerular FILTRATION RATE Filtration R ate is a (test code = GFR) calculated parameterbased on serum Creatinine, pat ient age and sex. GFR va luesless than 60 mL/min/ 1.73 square meters a re indicative ofCh ronic Kidney Disease. Values less than 15 mL/min/1.73squa re meters indicate Kidney failure. The calculation for GFR is based on the CK D-EPI (2020) calculat ion. This formulais race indifferent and is the recommended for bernard for GFRby the Nat nal Kidney Foundati on for Adults.The GFR will not calculate if th e sex is unknown or if thepatient's ag e is <18 years. CREATININE (test 1.1 mg/dL 0.6-1.3 N code = CREAT) TOTAL PROTEIN (test 7.6 g/dL 6.4-8.2 N code = PROT) ALBUMIN (test code = 3.80 g/dL 3.4-5.0 N ALB) CALCIUM (test code = 9.3 mg/dL 8.0-10.5 N CA) BILIRUBIN TOTAL 0.70 mg/dL 0.0-1.0 N (test code = BILT) SGOT/AST (test code 29 IUnit/L 8-34 N NOTE: NE W NORMAL RANGE = AST) SGPT/ALT (test code 18 IUnit/L 10-49 N NOTE: NE W NORMAL RANGE = ALT) ALKALINE PHOSPHATASE 65 IUnit/L 20-125 N TOTAL (test code = ALKP) LIPID PROFILE (CORONARY RISK)2023-07-26 10:47:00 Test Item Value Reference Range Interpretation Comments TRIGLYCERIDES (test 58 mg/dL 40-150 N code = TRIG) CHOLESTEROL (test 140 mg/dL <200 code = CHOL) CHOLESTEROL/HDL 2.28 RATIO 3.27-4.44 L RISK ASSOCIA BASILIA WITH RATIO (test code = CHOL/HDL RATIOS: RISK CHOLHDL) MALE FEMALE1/2 AVERAGE 3.43 3.27AVERAG E 4.97 4.442X AVERAGE 9.55 7.053X AVERAGE 23.39 11.04 NOTE THAT THE REFERENCE VALUE IS RELATEDTO RISK LEVELS RECOMMENDED BY THE NATL.HEART, JP G, AND BLOOD INST. HDL CHOLESTEROL 61.5 MG/DL 40-60 H Note rivers e in (test code = HDL) REFERENCE RANGE due to change in REAGE NT.HDL Interpretation < 40.0 mg/dL Low (unde sirable, high risk)> 60. 0 mg/dL High (desirable , low risk) Reference interval for he althy adults was esta blished by theNational Cholesterol Edu cation Program (NCEP). LIPOPROTEIN LDL 52.0 mg/dL 0-100 N <100 OPTIMAL 100-129 (test code = LDL) NEAR OPTIM AL/ABOVE [id number] 89 HIGH>WJ=365 JAY Y HIGH*Guidelines provided by the National Choles terol EducationProgra m Adult Treatment Panel III [id number] 10:47:00 Test Item Value Reference Range Interpretation Comments MAGNESIUM (test code = 1.83 mg/dL 1.6-2.6 N NOTE: NEW NORMAL MAG) RANGE B-TYPE NATRIURETIC [id number] 10:45:00 Test Item Value Reference Range Interpretation Comments B-TYPE NATRIURETIC PEPTIDE (test 195.0 PG/ML 0-100 H code = BNP) PROTHROMBIN [id number] 10:36:00 Test Item Value Reference Range Interpretation Comments PROTHROMBIN TIME 11.9 SECONDS 9.3-12.9 N PATIENT (test code = PTP) INTERNATIONAL NORMAL 1.1 0.8-1.2 N TARGET INR BY RATIO (test code = INDICATIO N Indication INR) INR1. Prophylax is of venous thrombos is 2.0 - 3.0 (orthoped ic surgery), Proph ylaxis of venous throm bosis (other than hig h-risk surgery), Treat ment of Deep Vein Thrombosis/Pulm onary Embolism, Preve ntion of systemic emb olism - Tissue heart va lves, Acute Myocardia l Infarction (to prevent systemic emboli sm), Valvular heart disease, Atrial Fibrillation, Bileaflet mecha nical valve in aortic position.2. Mec hanical prosthetic valv es (high risk), 2. 5 - 3.5 Presence of Lup us Anticoagulant o r Antiphospholipi d Antibodies, Pre vention of systemic emb olism - Acute Myocardia l Infarction (to prevent recurrent infar ct). THROMBOPLASTIN TIME [id number] 10:36:00 Test Item Value Reference Range Interpretation Comments THROMBOPLASTIN TIME 35.2 Seconds 25.0-39.5 N Therape utic Range: PARTIAL (test code = 50.4 - 88.3 Seconds PTT) Effective 01/05/2019 CBC W/AUTO [id number] 10:26:00 Test Item Value Reference Range Interpretation Comments WHITE BLOOD CELL (test code = 12.1 x10 3/uL 4.5-11.0 H WBC) RED BLOOD CELL (test code = 4.93 x10 6/uL 3.54-5.02 N RBC) HEMOGLOBIN (test code = HGB) 14.1 g/dL 11.0-15.0 N HEMATOCRIT (test code = HCT) 42.6 % 33.0-45.0 N MEAN CELL VOLUME (test code = 86.4 fL 81.0-99.0 N MCV) MEAN CELL HGB (test code = MCH) 28.6 pg 27.0-33.0 N MEAN CELL HGB CONCETRATION 33.1 g/dL 33.0-37.0 N (test code = MCHC) RED CELL DISTRIBUTION WIDTH CV 13.1 % 11.5-14.5 N (test code = RDW) RED CELL DISTRIBUTION WIDTH SD 40.8 fL 37.0-54.0 N (test code = RDW-SD) PLATELET COUNT (test code = 317 x10 3/uL 150-400 N PLT) MEAN PLATELET VOLUME (test code 11.0 fL 7.0-9.0 H = MPV) NEUTROPHIL % (test code = NT%) 78.6 % 56.0-77.0 H IMMATURE GRANULOCYTE % (test 0.5 % 0.0-2.0 N code = IG%) LYMPHOCYTE % (test code = LY%) 11.8 % 14.0-32.0 L MONOCYTE % (test code = MO%) 8.5 % 4.8-9.0 N EOSINOPHIL % (test code = EO%) 0.4 % 0.3-3.7 N BASOPHIL % (test code = BA%) 0.2 % 0.0-2.0 N NUCLEATED RBC % (test code = 0.0 % 0-0 N NRBC%) NEUTROPHIL # (test code = NT#) 9.50 x10 3/uL 2.0-7.6 H IMMATURE GRANULOCYTE # (test 0.06 x10 3/uL 0.00-0.03 H code = IG#) LYMPHOCYTE # (test code = LY#) 1.43 x10 3/uL 1.0-3.8 N MONOCYTE # (test code = MO#) 1.03 x10 3/uL 0.1-0.8 H EOSINOPHIL # (test code = EO#) 0.05 x10 3/uL 0.0-0.2 N BASOPHIL # (test code = BA#) 0.03 x10 3/uL 0.0-0.2 N NUCLEATED RBC # (test code = 0.00 x10 3/uL 0.0-0.1 N NRBC#) GLUCOSE [id number] 09:15:00 Test Item Value Reference Range Interpretation Comments GLUCOSE BEDSIDE (test 137 MG/DL 70-110 H Perfor med by certified code = GLUBED) 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 [facility] Notes Date/Time Note Provider Source 2023-08-09 20:10:00 [id number]:10:00 [facility] ([facility])DT Operative NoteREPORT#:[id number] REPORT STATUS: SignedREPOR T INITIALIZATION DATE:08/09/23 TIME: 2009 PATIENT: EVELYN GIBSON UNIT #: [id number]#: [id number] ROOM/BED: 3396-1DOB: [birth year] AGE : 83 SEX: F ATTEND: Apolinar Rankin [facility] AUTHOR: Parmjit Houser MDREPT SERVICE DT/TIME: 07/30/232009* ALL edits or amendments must be made on the electronic/computer document * Operative Report Operative NoteNote:Pre-procedure diagnosis: Severe symptomatic aortic stenosis Post-procedure diagnosis:Severe symptomatic aortic stenosis Procedures performed:1. Predilation with 18 mm true balloon2. Transcatheter aortic valve replacement using Bliss 23 mm valve3. Ascendin g aortogram4. Distal aortogram5. Transvenous temporary pacemaker insertion6. Closure of the right common femoral artery with 2 Perclose, lef t common femoral artery with 1 Perclose and left common femoral vein with 1 Perclose. County Adviser: MD Rowdy Gleason MD CT surgeon: Thelma Rankin MD Anesthesia: monitored anesthesia care. Indications:Severe symptomatic aortic stenosis. Technique/Procedure:After informed consent was obtained patient was brought into the Plant Nursery Worker patient was prepped and draped in sterile fashion. Left common femoral artery was accessed ultrasound guided and using micropuncture technique under fluoroscopy guidance and a 5 Haitian sheath was inserted. The left common femoral vein was accessed using micropuncture technique and then an 8 Haitian long sheath was inserted. The right common femoral artery was visualized by ultrasound and accessed using micropuncture technique under fluoroscopy guidancea micropuncture technique then a 6 Frenc h sheath was inserted, thne 2 Perclose were deployed, Then we placed a 14 Haitian Bliss E sheath. Then we went with 5 Haitian marked pigtai l from the left common femoral artery we placed it in the noncoronary cusp. Then we went up with temporary pacer and we placed it in the right ventricle against the septum. Then we went through the E sheath with exchange length J-wire over AL-1 catheter and I crossed the aortic valv e with straight tip wire and then I exchanged the AL-1 catheter into a pigtail over a J-wire. Then I performed simultaneous pressure and measured gradient between theLV and aortic root mean gradient was close to 100 mmHg. Then I went with safariwire and placed it in the left ventricle apex. Then I went up with 18 mm true balloon and did predilation, then Bliss 23 mm valve and we placed it across the aortic valve. I performed aortogram and the ascending aorta and showed goodposition of the TAVR valve. Then with rapid pacing at 200 bpm deployed the TAVRvalve 23 mm a t nominal pressure. Then the valve delivery system was removed. And we performed ascending aortogra m utilizing the marker pigtail and showed no perivalvular leak. An echocardiogram was done at the bedside showed small effusion no change from prior valve deployment, minimal gradient and no perivalvular leak. Then I went up with a pigtail over a J-wire across the TAVR valve and placed i t in the left ventricle and post TAVR deployment mean gradientwas less than 5 mmHg. When I remove d the pigtail out of the body and removed the E sheath and a 2 preclose were deployed in the right common femoral artery with good hemostasis . Then we pulled back the marked pigtail into the distal abdominal aorta and we performed angiogra m and showed good hemostasis achievement in the right common femoral artery. Then the temporary pacer was removed the marked pigtail was removed . The left common femoral artery and veinwere secured with Perclose. Operative findings:Severe aortic stenosis. Estimated blood loss in ml's: none Specimens removed/altered: none Implant(s): Bliss 23 mm Valve Disposition: PACU at 2020 RPT #:[id number] OF REPORTOPOperative [id number]:10:00G.[id number] a ilable for patient [id number]:20:47 2023-08-08 15:35:00 [id number]:129962-[address] [address] PATIENT NAME: EVELYN GIBSON ADMIT DATE: 07/26/23ACCOUNT NO: [id number] ROOM NO: G.3396 AGE: 83 REPORT TYPE: 360 - QUERY RESPONSE DOCUMENT SEX: F ADMITTING PHYSICIAN:Apolinar Rankin MD ATTENDING PHYSICIAN:Apolinar Rankin MD Provider Query QUERY TEXT: Condition General 360MD Query relate d questions should be directed to: [facility] Virgie munroe Query Helpline [Based on your clinical judgement, can you please clarify if decompensated CHF was confirmed, decompensated CHF not confirmed, or other more appropriate diagnosis?.] The patient's Clinical Indicators include:decompensated CHF.: CARDIAC CATHETERIZATION 07/30/2023-TYPE NATRIURETIC PEPTIDE (PG/ML) 195.0H: Laboratory resultsThe estimated ejection fraction is 60-64%. : ECHOCARDIOGRAM 07/27/2023 (2)Doppler parameters are consistent with abnormal left ventricular relaxation (grade 1 diastolic dysfunction) : ECHOCARDIOGRAM 07/27/2023 (2)enoxAPARIN 100 MG/1 ML INJ: mar 07/31/2023 Options provided:-- Respond - Create new note now-- Dismiss - Not applicable / Not valid-- Dismiss - Clinically unable to determine / Unknown-- Assign to anothe r provider QUERY RESPONSE: acute diastolic CHF Query created by: Rose Vazquez on 08/07/2023 11:32 PM at 1535 PATIENT NAME: EVELYN GIBSON noteG.[id number] for patient [id number]:36:52 2023-08-05 15:43:00 [id number]:43:00 [facility] ProgREPORT#:[id number] REPORT STATUS: SignedREPORT INITIALIZATION DATE:08/05/23 TIME: 1542 PATIENT: EVELYN GIBSON UNIT #: [id number]#: [id number] ROOM/BED: 3396-1DOB: [birth year] AGE: 83 SEX: F ATTEND: Apolinar Rankni MDATIFFANIE AUTHOR: Dayna Younger PhysicREPT SERVICE DT/TIME: 08/05/23 1543* ALL edits or amendments must be made on the electronic/computer document * GeneralPost-op: day 5Status post:TAVR SubjectiveChief complaint:POST TAVR Review of SystemsConstitutional:Reports: fatigue. Skin:Denies: bruising, contusion, diaphoresis. Allergy/Immun:Denies: hives, itching, rhinorrhea . Eyes:Denies: discharge, visual loss/blurred. ENT:Denies: toothache, voice change. Respiratory:Reports: BALBUENA (dyspnea on exertion). Cardiovascular:Reports: chest pain. GI:Denies: abdominal pain, nausea, vomiting. :Denies: dysuria, flank pain. Musculoskeletal:Denies: nec k pain, thoracic pain. Neuro:Denies: focal weakness, slurred speech, syncope. All systems rev neg: except as marked Objective GeneralVS/I OLast Documented: Result Date Time B/P 126/60 08/05 1000 B/P Mean 86 08/05 1000 Pulse 72 08/05 1000 Resp 26 08/05 1000 Pulse Ox 96 08/05 0301 Temp 97.8 08/04 2005 O2 Delivery Room air 08/03 0956 24 hour I O ending at 0700: 08/05 0700 08/04 1900 Intake Total 938.40 Output Total Balance 938.40 Intake, IV 28.40 Intake, Oral 550 Intake, Oral 360 Supplement Number 3 Bowel Movements Number Voids 5 Weight Measurement Method PATIENT WEIGHT: Weight (lb): 190Weight (oz): 5.82Weight (kg): 86.500 Physical ExamGeneral appearance: alert, awake, orientedHEENT: anicteric, mucosal membranes moist, pupils reactive to lightNeck: full range of motion, non-tenderCardiovascular: irregular rhythm, normal heart soundsRespiratory: aerating well, clear to auscultation, symmetric expansion , no distressAbdomen: soft, non-tenderGenitourinary: no bladder distention, no flank painExtremities: dry, moves all, normal capillary refill, normal temperatureMusculoskeletal: full range of motion , painless range of motionNeuro/SHACKLER: alert, oriented X 3Psychiatry: normal affect, normal judgment/insight Diagnosis, Assessment PlanFree Text A P:83-year-old female, PMHx HTN, diabetes on metformin, HLD, back pain, arthritis, vertigo for which she reportedly takes a Xanax, breast cancer left-sided mastectomy. Patient is transferred to us from [facility], patient of Dr. Hernández, and she reports chest pressure, burning sensation in her throat, sensation of nausea which started a few weeks ago after having a GI illness with vomiting. Patient was evaluated at [facility] for reports of chest pain, and findings of normal EKG, troponins within normal limits, BNP elevated at 1397, UA negative, chest x-ray stable, echocardiogram done with findings of severe aortic stenosis patient referred to us for TAVR evaluation. Patient reports cardiac cat h done at [facility], however, we have no report o f cardiac cath and no CD with echo or heart cath findings. Assessment:Aortic stenosis, TAVR evalHTNDiabetesHyponatremia TTE: 07/27/2023: EF 60 to 64%. Wall motion is normal, no regional wall motion abnormalities. G1 DD. Aortic valve the findings are consistent with critical stenosis. Aortic valve peak velocity is 5.44 m/s , mean PG is estimated at 73.21 mmHg, max PG is estimated at 118.46 mmHg, RISHABH VTI is estimated a t 0.6 cm2, and RISHABH by planimetry is estimated at 0.8 cm2.Mitral valve annulus moderately calcified. No pericardial effusion Patient seen and evaluated by Dr. Rankin and he agrees with plan for TAVR.-TAVR jsul-bw-Ouierfsvvb hlkmrjn-Eakvstjebkyn-dqkxm restriction-Resume prior hospital meds 07/27/2023TAVR eval-Pending CT tjalj-Wfjsuzphnilj-rsewe restrictionLeukocytosis, afebrile, UA 1+ leukocyte Estrace. Urine culture pending. Empiri c bactrimPatient with choking episode on food today, patient states as she did not have her dentures in. -- -Pur ed diet, chest x-rayDiscussed with Dr. Rankin 07/31/23POD 1 S/P TAVRPatient went into a fib-RVR. Cardiology managing amio drip startedOn room air. Groins soft. Advance diet as tolerated. Has been out of bed. ECHO ordered. Patient seen and examined by Dr Rankin. 08/01/23POD 2S/P TAVRPatient continues in A fib RVR. Cardiology managing. Groins soft. PT/OT following. Advance diet as tolerated. Echo done. Continue supportive care 08/02/23POD 3S/P TAVRa fib, EP consulted. Echo done, reviewed by cardiology. Patient has been out of bed with PT/OT.Patient reportedly had oozing from bilateral groins incisions last night.Patient seen and examined by . Groins appear soft. No evidence of active bleeding. Continue to monitor per Dr. Curtis . EP following for rhythm managementContinue supportive care. 08/03/23POD 4S/P TAVRa fib, EP consulted. Echo done, reviewed by cardiology. Patient has been out of bed with PT/OT.Patient with small amount of oozing from bilateral groin sites. Will obtain ultrasound. Groins remain soft.Remains sinus rhythm.ICC following. Continu e supportive care. 08/04/23pod 5Patient resting comfortable,No further bleeding from the bilateral groin sites.Ultrasounds shows no activ e bleeding with only small hematomas.Patient has been out of bedsinus rhythm, managed by cardiology.EP consulted and followingDischarge when okay with Cardiology and EP. 08/05/23pod 6Patient resting comfortable,No further bleeding from the bilateral groin sites.Ultrasounds shows no active bleeding with only small hematomas.Patient has been out of bedsinus rhythm, managed by cardiology.EP consulted and followingOkay to DC patient home today. at 1544 at 0847 RPT #:[id number] OF REPORTPRProgress [id number]:43:00G.[id number] maria guadalupe able for patient [id number]:44:48 2023-08-05 13:19:00 [id number]:19:00 [facility] ([facility])Discharge SummaryREPORT#:[id number] REPORT STATUS: SignedREPORT INITIALIZATION DATE:08/05/23 TIME: 1319 PATIENT: EVELYN GIBSON UNIT #: [id number]#: [id number] ROOM[place]BED: [facility]-1DOB: [birth year] AGE: 83 SEX: F ATTEND: Apolinar Rankin [facility] AUTHOR: Roberto Sahni NPREPT SERVICE DT/TIME: 08/05/23 1319* ALL edits or amendments must be made on th e electronic/computer document * PCP PCPDischarge to: home General InformationFree Text A P:1. Severe Symptomatic Aortic StenosisPatient underwent successful Bliss [place] S3 23mm Valve.Patient had paroxysmal AF and now on Eliquis reduced dose.Echocardiogram reviewed by Cardiology and CTS is following. 2. Atrial Fibrillation with RVROn amiodarone and currently in sinus rhythm.Continue amiodarone.Cardiology i s managing. 3. HypertensionBlood pressures are reasonable. Patient cleared for discharge from EP, Cardiology, and CTS. Date of admission:Observation Start Date: Date of admission: 07/26/23 Discharge date: 08/05/23Discharge diagnosis:Severe symptomatic aortic stenosis, paroxysmal atrial fibrillationHospital course:This is an 83 year old female with a past medical history of diabetes mellitus type II, hyperlipidemia, back pain, arthritis, vertigo, and breast cancer that presented for chest pressure, palpitations and had atrial fibrillation with RVR and was also found to have critical aortic stenosis. The patient underwent successful implant of an Bliss [place]ura S3 23mm valve and was monitored overnight. Patient did well but did have some atrial fibrillation with RVR and was started on amiodarone, but patient did convert to sinus rhythm. Med Rec PCPPCP:PCP: No Primary or Family Physician Med RecDischarge meds:Continue taking these medications:amLODIPine (NORVASC) 5 MG TAB 5 MILLIGRAM ORAL DAILY. SIMVASTATIN (ZOCOR) 10 MG TAB 10 MILLIGRAM ORAL DAILY. ALPRAZolam XR (XANA X XR) 1 MG TAB.SR.24H 1 MILLIGRAM ORAL DAILY. as needed for NEEDED FOR VERTIGO ASPIRIN (ASPIRIN) 81 MG TAB.CHEW 81 MILLIGRAM ORAL DAILY . METOPROLOL TARTRATE (LOPRESSOR) 25 MG TAB 25 MILLIGRAM ORAL TWICE DAILY. Start taking the following new medications:APIXABAN (ELIQUIS) 2.5 MG TAB 2.5 MILLIGRAM ORAL TWICE DAILY. Days = 30 Qty = 60 Refills = 3 AMIODARONE (PACERONE) 200 M G TAB 200 MILLIGRAM ORAL TWICE DAILY AT 9AM AND 5PM. Days = 30 Qty = 60 Refills = 1 ObjectiveVS/ I OLast Documented: Result Date Time B/P 126/60 08/05 1000 B/P Mean 86 08/05 1000 Pulse 72 08/05 1000 Resp 26 08/05 1000 Pulse Ox 96 08/05 0301 Temp 36.6 08/04 2005 O2 Delivery Room air 08/03 0956 24 hour I O ending at 0700: 08/05 0700 07/23 3 1900 Intake Total 938.40 Output Total Balance 938.40 Intake, IV 28.40 Intake, Oral 550 Intake , Oral 360 Supplement Number 3 Bowel Movements Number Voids 5 Weight Measurement Method PATIENT WEIGHT: Weight (lb): 190Weight (oz): 5.82Weight (kg): 86.500 General appearance: alert, awake, oriented, no acute distressHead/Eyes: atraumatic , clear corneaNeck: full range of motion, non-tender, no JVD, no lymphadenopathyCardiovascular: normal capillary refill, regular rate rhythm, normal heart sounds , BP/pulses equal bilat.Respiratory: clear to auscultation, no distressGI: softExtremities: moves all, no edema-all extremities, normal capillary refillMusculoskeletal: full range of motion, normal inspection, no CVA tenderness, no midline vertebral tendNeuro/SHACKLER: alert, oriented X 3Skin: dry, intact Discharge Instructions PCPPCP:PCP: No Primary or Family Physician )( Discharge to: Home/Self Care Discharge InstructionsAdditional Discharge Routines: Attending Follow-Up, Aquaculture Director Follow-Up)( Diet : Resume Home Diet/Feeds Follow-up AppointmentsAttending Physician: Attending Physician: Apolinar Rankin MD Scdkthcibw provider 1: Provider 1: Apolinar Rankin MD Specialty: Thoracic Surgery Consult follow up timeframe: In 2-3 weeks at 1430 at 1445 RPT #:[id number] OF REPORTDSDischarge kyagxxz1897-90-09M72:19:00G.[id number] v ailable for patient ctuaHQPEAZEOIFSGCE8892-59-26W42:40:06 2023-08-05 09:13:00 [id number]:13:00 [facility] ([facility])Cardiology Progress NoteREPORT#:[id number] REPORT STATUS: SignedREPOR T INITIALIZATION DATE:08/05/23 TIME: 912 PATIENT: EVELYN GIBSON UNIT #: [id number]#: [id number] [address] AGE : 83 SEX: F ATTEND: Apolinar Rankin MDA AUTHOR: Tabitha Herring AGACNPREPT SERVICE DT/TIME: 08/05/23912* ALL edits or amendments must be made on the electronic/computer document * SubjectivePatient reports:No: complaints. Objective GeneralVS/I O:24 hour I O ending at 0700: 08/05 0700 08/04 1900 Intake Total 938.40 Output Total Balance 938.40 Intake, IV 28.40 Intake, Oral 550 Intake, Oral 360 Supplement Number 3 Bowel Movements Number Voids 5 Weight Measurement Method Vital Signs: Date Time Temp Pulse Resp B/P B/P Pulse O 2 O2 Flow FiO2 Mean Ox Delivery Rate 08/05 0801 57 15 115/56 80 08/05 0700 70 19 144/64 92 08/05 0301 72 18 142/61 88 96 08/05 0201 65 14 118/57 82 94 08/05 0100 69 14 149/66 95 99 08/05 0001 6 7 24 152/65 94 97 08/04 2300 62 16 121/59 85 94 08/04 2201 64 14 110/50 72 96 08/04 2100 69 16 133/58 84 94 08/04 2005 36.6 77 24 129/77 87 70 08/04 1900 72 18 126/56 81 95 08/04 1800 72 19 134/60 86 98 08/04 1701 66 24 144/64 92 97 08/04 1600 36.9 08/04 1600 65 16 122/58 83 96 08/04 1500 61 18 125/58 84 96 08/04 1400 62 19 115/55 79 95 08/04 1300 65 19 127/95 107 89 08/04 1200 37.2 08/04 1200 63 20 131/60 87 96 08/04 1101 66 34 134/62 89 98 08/04 1000 64 17 119/56 81 99 PATIENT WEIGHT: Weight (lb): 190Weight (oz): 5.82Weight (kg): 86.500 Medications:Active Meds + DC'd Last 24 HrsAmiodarone HCl (CORDARONE) 200 M G BID 9A 5P PO Aspirin (ASPIRIN) 81 MG DAILY PO Apixaban (ELIQUIS 2.5MG TABLET) 2.5 MG BID PO Amiodarone HCl (CORDARONE) 400 MG BID 9A 5P PO (CKD) Amiodarone HCl (CORDARONE) 200 MG ONCE ONE PO (DC) Polyethylene Glycol (MIRALAX) 17 GM KARLA Y PO Apixaban (ELIQUIS 5MG TABLET) 5 MG BID PO (DC ) Clopidogrel Bisulfate (Plavix) 75 MG DAILY PO (DC) Atropine Sulfate (ATROPINE SULFATE 0.1MG/ML SYR) 0.5 MG ASDIR PRN IV Sodium Chloride (SODIUM CHLORIDE 0.9%) 500 ML ASDIR PRN IV Simvastatin (SIMVASTATIN) 10 MG 2100 PO Metoprolol Tartrate (LOPRESSOR) 25 MG BID PO Alprazolam (XANAX 0.25) 0.5 MG Q8H PRN PRN PO Insulin Human Lispro (HUMALOG) 0 AC HS SUBQ Dextrose/Water (DEXTROSE 10% IN WATER) 125 ML ASDIR PRN IV (CKD) Dextrose/Water (DEXTROSE 10% IN WATER) 250 ML ASDIR PRN IV (CKD) Docusate Sodium (COLACE) 100 MG BID PO Glucagon (GLUCAGON) 1 MG ASDIR PRN IM Acetaminophen (TYLENOL) 650 MG Q4H PRN PRN PO Al Hydrox/Mg Hydrox/Simethicone (MYLANTA) 30 ML Q4H PRN PRN PO Ondansetron HCl (ZOFRAN) 4 MG Q6H PRN PRN IV Sodium Chloride (SODIUM CHLORIDE) 10 ML ASDIR IV Physical ExamGeneral appearance: alert, awake, orientedHead/Eyes: atraumaticENT: moist mucosal membranesNeck: full range of motionCardiovascular: CV assessment: regular rat e and rhythm, BP pulses = bilaterally, normal hear t soundsRespiratory: clear to auscultation, no distressAbdomen: softGenitourinary: no flank pain, no urinary catheterLower extremity: LE assessment: no edema Left groin site: ecchymosis , hematoma (small) Right groin site: ecchymosis, hematoma (small)Musculoskeletal: normal inspectionNeuro/SHACKLER: alert, oriented X 3Skin: dry, intact, normal colorPsychiatry: normal affect, normal mood ResultsFindings/Data:Laboratory Tests 08/05 07/23 4 08/04 08/04 08/04 0713 0425 2114 1624 1108 Chemistry Sodium (134 - 147 mEq/L) 133 L Potassium (3.4 - 5.0 mEq/L) 4.7 Chloride (100 - 108 mEq/L) 99 L Carbon Dioxide (21 - 33 mEq/l) 3 0 Anion Gap (0 - 20) 9 BUN (7 - 25 mg/dL) 7 Creatinine (0.6 - 1.3 mg/dL) 0.7 Glomerular Filt r Rate (70 - 80) 84.7 H Glucose (77 - 141 mg/dL) 9 1 POC Glucose (70 - 110 MG/DL) 100 99 123 H 115 H Calcium (8.0 - 10.5 mg/dL) 8.3 Magnesium (1.6 - 2.6 mg/dL) 1.90 Laboratory Tests 08/05 0425 Hematology WBC (4.5 - 11.0 x10 3/uL) 10.2 RBC (3.54 - 5.02 x10 6/uL) 3.47 L Hgb (11.0 - 15.0 g/dL) 10.2 L Hct (33.0 - 45.0 %) 31.4 L MCV (81. 0 - 99.0 fL) 90.5 MCH (27.0 - 33.0 pg) 29.4 MCHC (33.0 - 37.0 g/dL) 32.5 L RDW (11.5 - 14.5 %) 13.7 Plt Count (150 - 400 x10 3/uL) 231 MPV (7.0 - 9.0 fL) 12.2 H Neut % (Auto) (56.0 - 77.0 %) 66.9 Lymph % (Auto) (14.0 - 32.0 %) 17.8 Van Zandt % (Auto) (4.8 - 9.0 %) 11.1 H Eos % (Auto) (0.3 - 3.7 %) 2.2 Baso % (Auto) (0.0 - 2.0 %) 0.5 Neut # (Auto) (2.0 - 7.6 x10 3/uL) 6.84 Lymph # (Auto ) (1.0 - 3.8 x10 3/uL) 1.82 Van Zandt # (Auto) (0.1 - 0.8 x10 3/uL) 1.13 H Eos # (Auto) (0.0 - 0.2 x10 3/uL) 0.22 H Baso # (Auto) (0.0 - 0.2 x10 3/uL) 0.05 Abs Immat Gran (auto) (0.00 - 0.03 x10 3/uL ) 0.15 H Immature Gran % (0.0 - 2.0 %) 1.5 Nucleated RBC % (0 - 0 %) 0.0 Nucleated RBCs # (Man) (0.0 - 0.1 x10 3/uL) 0.00 Laboratory Tests 08/05 0425 Chemistry Magnesium (1.6 - 2.6 mg/dL ) 1.90 Results: labs reviewed, vital signs reviewed, rhythm personally rev'dTelemetry Interpretation:sinus rhythm Diagnosis, Assessmen t PlanPlan discussed with: patient, collaborating MD, nurse Free Text DxA P NotesFree Text DxA P Notes:# Symptomatic severe aortic stenosis s/p TAVR* Echo: LVEF 60-64% with critical . Peak velocity 5.44, mean PG 73.21, mag PG 118.46, RISHABH VTI 0.6, RISHABH 0.8* 07/30/23: s/p TAVR utilizing Bliss's Ventura S3 Ultra pericardial valve * post TAVR echo reviewed* dual therapy with Eliquis 2.5 mg BID and ASA 81mg daily. Stop Plavix # Nausea - resolved* antiemetic PRN # Hyponatremia* NA 129 # Paroysmal atrial fibrillation with new onset LBBB -> now in sinus * preTAVR EKG without LBBB* continue metoprolol tartrate 25 mg BID * Stop amiodarone gtt* amiodarone 400 mg BID for 5 days, then 200 mg BI D thereafter. Will see her in the clinic and taper her amiodarome to 200 mg daily* [id number] score 3, Eliquis 2.5 mg BID* EP consult * 08/04: 12 lead EKG still with LBBB* will arrange for cardiac event monitor outpatient Ok to DC home with Home health. Outpatient follow-up with Dr. Hernández. at 1010Electronically Signed by Parmjit Houser MD 08/12/23 at 1445 RPT #:[id number] OF REPORTPRProgress [id number]:13:00G.[id number] l able for patient [id number]:10:49 2023-08-04 13:37:00 [id number]:[id number] [place] [address] PATIENT NAME: EVELYN GIBSON ADMIT DATE: 07/26/23ACCOUNT NO: [id number] ROOM NO: G.3301 AGE: 83 REPORT TYPE: eELECTROCARDIOGRAM REPORT SEX: F ADMITTING PHYSICIAN:Apolinar Rankin MD ATTENDING PHYSICIAN:Apolinar Rankin MD Order:[id number] Reason : lbbb Test Date/Time Stamp:FriAug 04 2023 13:37:33Blood Pressure : / mmHGVent. Rate : 064 BPM Atrial Rate : 064 BPM P-R Int : 174 ms QRS Dur : 130 ms QT Int : 470 ms P-R-T Axes : 000 105 046 degrees QTc Int : 484 ms Normal sinus rhythmRightward axisNonspecific intraventricular blockMinimal voltage criteria for LVH, may be normal variant ( Franco product )T wave abnormality, consider inferolateral ischemiaAbnormal ECGWhen compared with ECG of 02-AUG-2023 08:24,No changesConfirmed by MD KERLINE, KORTNEY ([id number]) on 08/04/2023 8:56:14 PM Referred By: Apolinar Rankin Confirmed by:KORTNEY FRANKS MD at 2056 PATIENT NAME: EVELYN GIBSON .[id number] AVAvailable for patient vpxoLRKAARVVHVEZSG2669-80-59G38:56:43 2023-08-04 12:17:00 [id number]:17:00 [facility] Progress NoteREPORT#:[id number] REPORT STATUS: SignedREPOR T INITIALIZATION DATE:08/04/23 TIME: 1216 PATIENT: EVELYN GIBSON UNIT #: [id number]#: [id number] [address] AGE: 83 SEX: F ATTEND: Apolinar Rankin MDA DT : 07/26/23 AUTHOR: Tabitha HerringPREPT SERVICE DT/TIME: 08/04/231216* ALL edits or amendments must be made on the electronic/computer document * SubjectivePatient reports:No: complaints. Objective GeneralVS/I O:24 hour I O ending at 0700: 08/04 0700 08/03 1900 Intake Total 362.00 930.00 Output Total Balance 362.00 930.00 Intake, IV 212.00 210.00 Intake, Oral 150 720 Number 2 Bowel Movements Number Voids 2 4 Vital Signs: Date Time Temp Pulse Resp B/P B/P Pulse O2 O2 Flow FiO2 Mean Ox Delivery Rate 08/04 0800 36.5 08/04 0501 60 18 116/54 78 98 08/04 0401 68 21 122/56 81 95 08/04 0301 142/64 92 08/04 0300 66 18 97 08/04 0201 5 8 15 111/50 72 97 08/04 0100 59 13 118/53 77 97 08/04 0001 65 20 110/53 77 98 08/04 0000 36.6 08/03 2301 59 16 115/56 80 97 08/03 2200 62 16 126/60 87 96 08/03 2101 70 20 109/54 78 98 08/03 2000 36.6 111999 69 17 123/55 79 98 08/03 1940 68 24 123/56 81 98 08/03 1700 66 22 119/57 82 97 08/03 1600 36.8 62 19 117/57 82 97 08/03 1500 63 19 118/54 78 98 08/03 1400 63 20 115/53 76 99 08/03 1300 65 20 120/56 81 99 PATIENT WEIGHT: Weight (lb): 190Weight (oz): 5.82Weight (kg): 86.500 Medications:Active Meds + DC'd Last 24 HrsAmiodarone HCl (CORDARONE) 400 MG BID 9A 5 P PO (CKD) Amiodarone HCl (CORDARONE) 200 MG ONCE ONE PO (DC) Polyethylene Glycol (MIRALAX) 17 GM DAILY PO Apixaban (ELIQUIS 5MG TABLET) 5 MG BID PO Amiodarone HCl (CORDARONE) 200 MG BID 9A 5P P O (DC) Amiodarone HCl (AMIODARONE HCL) 450 MG ASDI R IV (DC) Dextrose/Water (D5%W NON-DEHP) 250 MLMupirocin (BACTROBAN 2% 22 GM OINTMENT) 1 APPLIC BID NASAL (DC) Clopidogrel Bisulfate (Plavix) 75 MG DAILY PO Atropine Sulfate (ATROPINE SULFATE 0.1MG/ML SYR) 0.5 MG ASDIR PRN IV Sodium Chloride (SODIUM CHLORIDE 0.9%) 500 ML ASDIR PRN IV Simvastatin (SIMVASTATIN) 10 MG 210 0 PO Metoprolol Tartrate (LOPRESSOR) 25 MG BID PO Alprazolam (XANAX 0.25) 0.5 MG Q8H PRN PRN PO Insulin Human Lispro (HUMALOG) 0 AC HS SUBQ Dextrose/Water (DEXTROSE 10% IN WATER) 125 ML ASDIR PRN IV (CKD) Dextrose/Water (DEXTROSE 10% IN WATER) 250 ML ASDIR PRN IV (CKD) Docusate Sodium (COLACE) 100 MG BID PO Glucagon (GLUCAGON ) 1 MG ASDIR PRN IM Acetaminophen (TYLENOL) 650 MG Q4H PRN PRN PO Al Hydrox/Mg Hydrox/Simethicone (MYLANTA) 30 ML Q4H PRN PRN PO Ondansetron HCl (ZOFRAN) 4 MG Q6H PRN PRN IV Sodium Chloride (SODIUM CHLORIDE) 10 ML ASDIR IV Status post:TAV R Physical ExamGeneral appearance: alert, awakeHead/Eyes: atraumaticENT: moist mucosal membranesNeck: full range of motionCardiovascular: CV assessment: regular rat e and rhythm, BP pulses = bilaterally, normal hear t soundsRespiratory: clear to auscultation, no distressAbdomen: softGenitourinary: no flank pain, no urinary catheterLower extremity: LE assessment: no edemaNeuro/SHACKLER: alert, oriented X 3Skin: dry, intact, normal colorPsychiatry: normal affect, normal mood ResultsFindings/Data:Laboratory Tests 08/04 0814 Blood Gas O2 Saturation (90 - 100 %) 98.6 ABG pH (7.35 - 7.45) 7.361 ABG pCO2 (35.0 - 45 mmHg) 36.3 ABG pO2 (80 - 100.0 mmHg) 122.7 H ABG HCO3 (22.0 - 26.0 MMOL/L) 20.5 L ABG Total CO2 21.6 ABG Base Excess (-4.0 - 4.0 MMOL/L) -4.9 L Laboratory Tests 08/04 08/04 08/04 08/03 08/03 1108 0718 0608 2102 1701 Chemistry Sodium (134 - 147 mEq/L) 130 L Potassium (3.4 - 5.0 mEq/L) 4.4 Chloride (100 - 108 mEq/L) 102 Carbon Dioxide (2 1 - 33 mEq/l) 30 Anion Gap (0 - 20) 2 BUN (7 - 25 mg/dL) 10 Creatinine (0.6 - 1.3 mg/dL) 0.7 Glomerular Filtr Rate (70 - 80) 84.7 H Glucose (77 - 141 mg/dL) 119 POC Glucose (70 - 110 MG/DL ) 115 H 109 151 H 128 H Calcium (8.0 - 10.5 mg/dL) 8.6 Magnesium (1.6 - 2.6 mg/dL) 1.99 Laboratory Tests 08/04 0608 Hematology WBC (4.5 - 11.0 x10 3/uL) 11.3 H RBC (3.54 - 5.02 x10 6/uL) 3.40 L Hgb (11.0 - 15.0 g/dL) 9.9 L Hct (33.0 - 45.0 %) 30.2 L MCV (81.0 - 99.0 fL) 88.8 MCH (27.0 - 33. 0 pg) 29.1 MCHC (33.0 - 37.0 g/dL) 32.8 L RDW (11.5 - 14.5 %) 13.6 Plt Count (150 - 400 x10 3/uL) 225 MPV (7.0 - 9.0 fL) 11.9 H Neut % (Auto) (56.0 - 77.0 %) 69.8 Lymph % (Auto) (14.0 - 32.0 %) 15.7 Van Zandt % (Auto) (4.8 - 9.0 %) 11.1 H Eos % (Auto) (0.3 - 3.7 %) 2.0 Baso % (Auto) (0.0 - 2.0 %) 0.4 Neut # (Auto) (2.0 - 7.6 x10 3/uL) 7.92 H Lymph # (Auto) (1.0 - 3.8 x10 3/uL) 1.78 Van Zandt # (Auto) (0.1 - 0.8 x10 3/uL) 1.26 H Eos # (Auto) (0.0 - 0.2 x10 3/uL) 0.23 H Baso # (Auto) (0.0 - 0.2 x10 3/uL) 0.04 Abs Immat Gran (auto) (0.00 - 0.03 x10 3/uL) 0.11 H Immature Gran % (0.0 - 2.0 %) 1.0 Nucleated RBC % (0 - 0 %) 0.0 Nucleated RBCs # (Man) (0.0 - 0.1 x10 3/uL) 0.00 Laboratory Tests 08/04 0608 Chemistry Magnesium (1.6 - 2.6 mg/dL) 1.99 Radiology data:Recent Impressions:ULTRASOUND - US SOFT TISSUE TORSO 08/03 1738 Report Impression - Status: SIGNED Entered: 08/03/20232119 IMPRESSION:Bilateral small inguinal hematoma, no evidence of pseudoaneurysm oractive bleeding.Impression By: [id number] - Efrain Park M.D. Results: labs reviewed, vital sign s reviewed, rhythm personally rev'dTelemetry Interpretation:sinus rhythm Diagnosis, Assessmen t PlanPlan discussed with: patient, collaborating MD, consultants (Dr. Barney), nurse Free Text Dx A P NotesFree Text DxA P Notes:# Symptomatic sever e aortic stenosis s/p TAVR* Echo: LVEF 60-64% with critical . Peak velocity 5.44, mean PG 73.21, mag PG 118.46, RISHABH VTI 0.6, RISHABH 0.8* 07/30/23: s/ p TAVR utilizing Bliss's Ventura S3 Ultra pericardial valve * post TAVR echo reviewed* sally l therapy with Eliquis 2.5 mg BID and ASA 81mg daily. Stop Plavix # Nausea - resolved* antiemetic PRN # Hyponatremia* NA 129 # Paroysma l atrial fibrillation with new LBBB* preTAVR EKG without LBBB* continue metoprolol tartrate 25 mg BID * Stop amiodarone gtt* amiodarone 400 mg BID for 5 days, then 200 mg BID thereafter. Will see her in the clinic and taper her amiodarome to 20 0 mg daily* [id number] score 3, Eliquis 2.5 mg BID* EP consult * 08/04: 12 lead EKG still with LBBB [facility]eth e in AM. at 1401Electronically Gina d by Parmjit Houser MD on 08/12/23 at 1443 RPT #:[id number] OF REPORTPRProgress [id number]:17:00G.[id number] l able for patient ptvuYZSNFKBMUOFOFO8490-96-27Z93:01:42 2023-08-04 09:28:00 [id number]:28:00 [facility] ProgREPORT#:[id number] REPORT STATUS: SignedREPORT INITIALIZATION DATE:08/04/23 TIME: 927 PATIENT: EVELYN GIBSON UNIT #: [id number]#: [id number] [place] [facility] [place] [birth year] AGE: 83 SEX: F ATTEND: Apolinar Rankin [facility] AUTHOR: Dayna Younger PhysicREPT SERVICE DT/TIME: 08/04/23927* ALL edits or amendments must be made on the electronic/computer document * GeneralPost-op: day 4Status post:TAVR SubjectiveChief complaint:POST TAVR Review of SystemsConstitutional:Reports: fatigue. Skin:Denies: bruising, contusion, diaphoresis. Allergy/Immun:Denies: hives, itching, rhinorrhea . Eyes:Denies: discharge, visual loss/blurred. ENT:Denies: toothache, voice change. Respiratory:Reports: BALBUENA (dyspnea on exertion). Cardiovascular:Reports: chest pain. GI:Denies: abdominal pain, nausea, vomiting. :Denies: dysuria, flank pain. Musculoskeletal:Denies: nec k pain, thoracic pain. Neuro:Denies: focal weakness, slurred speech, syncope. All systems rev neg: except as marked Objective GeneralVS/I OLast Documented: Result Date Time Pulse Ox 98 08/04 0501 B/P 116/54 08/04 0501 B/P Mean 78 08/04 0501 Pulse 60 08/04 0501 Resp 18 08/04 0501 Temp 97.8 08/04 0000 O2 Delivery Room air 08/03 0956 24 hour I O ending at 0700: 08/04 0700 08/03 1900 Intake Total 362.00 930.00 Outpu t Total Balance 362.00 930.00 Intake, IV 212.00 210.00 Intake, Oral 150 720 Number 2 Bowel Movements Number Voids 2 4 PATIENT WEIGHT: Weigh t (lb): 190Weight (oz): 5.82Weight (kg): 86.500 Physical ExamGeneral appearance: alert, awake, orientedHEENT: anicteric, mucosal membranes moist, pupils reactive to lightNeck: full range of motion, non-tenderCardiovascular: irregular rhythm, normal heart soundsRespiratory: aerating well, clear to auscultation, symmetric expansion , no distressAbdomen: soft, non-tenderGenitourinary: no bladder distention, no flank painExtremities: dry, moves all, normal capillary refill, normal temperatureMusculoskeletal: full range of motion , painless range of motionNeuro/SHACKLER: alert, oriented X 3Psychiatry: normal affect, normal judgment/insight Diagnosis, Assessment PlanFree Text A P:83-year-old female, PMHx HTN, diabetes on metformin, HLD, back pain, arthritis, vertigo for which she reportedly takes a Xanax, breast cancer left-sided mastectomy. Patient is transferred to us from [facility], patient of Dr. Hernández, and she reports chest pressure, burning sensation in her throat, sensation of nausea which started a few weeks ago after having a GI illness with vomiting. Patient was evaluated at [facility] for reports of chest pain, and findings of normal EKG, troponins within normal limits, BNP elevated at 1397, UA negative, chest x-ray stable, echocardiogram done with findings of severe aortic stenosis patient referred to us for TAVR evaluation. Patient reports cardiac cat h done at [facility], however, we have no report o f cardiac cath and no CD with echo or heart cath findings. Assessment:Aortic stenosis, TAVR evalHTNDiabetesHyponatremia TTE: 07/27/2023: EF 60 to 64%. Wall motion is normal, no regional wall motion abnormalities. G1 DD. Aortic valve the findings are consistent with critical stenosis. Aortic valve peak velocity is 5.44 m/s , mean PG is estimated at 73.21 mmHg, max PG is estimated at 118.46 mmHg, RISHABH VTI is estimated a t 0.6 cm2, and RISHABH by planimetry is estimated at 0.8 cm2.Mitral valve annulus moderately calcified. No pericardial effusion Patient seen and evaluated by Dr. Rankin and he agrees with plan for TAVR.-TAVR hsal-zy-Pniazuxbmm ywcqniw-Emyjljvkbcbn-nbrpp restriction-Resume prior hospital meds 07/27/2023TAVR eval-Pending CT ttjsh-Hqyiuzcxjrxj-mkvnd restrictionLeukocytosis, afebrile, UA 1+ leukocyte Estrace. Urine culture pending. Empiri c bactrimPatient with choking episode on food today, patient states as she did not have her dentures in. -- -Pur ed diet, chest x-rayDiscussed with Dr. Rankin 07/31/23POD 1 S/P TAVRPatient went into a fib-RVR. Cardiology managing amio drip startedOn room air. Groins soft. Advance diet as tolerated. Has been out of bed. ECHO ordered. Patient seen and examined by Dr Rankin. 08/01/23POD 2S/P TAVRPatient continues in A fib RVR. Cardiology managing. Groins soft. PT/OT following. Advance diet as tolerated. Echo done. Continue supportive care 08/02/23POD 3S/P TAVRa fib, EP consulted. Echo done, reviewed by cardiology. Patient has been out of bed with PT/OT.Patient reportedly had oozing from bilateral groins incisions last night.Patient seen and examined by . Groins appear soft. No evidence of active bleeding. Continue to monitor per Dr. Curtis . EP following for rhythm managementContinue supportive care. 08/03/23POD 4S/P TAVRa fib, EP consulted. Echo done, reviewed by cardiology. Patient has been out of bed with PT/OT.Patient with small amount of oozing from bilateral groin sites. Will obtain ultrasound. Groins remain soft.Remains sinus rhythm.ICC following. Continu e supportive care. 08/04/23pod 5Patient resting comfortable,No further bleeding from the bilateral groin sites.Ultrasounds shows no activ e bleeding with only small hematomas.Patient has been out of bedsinus rhythm, managed by cardiology.EP consulted and followingDischarge when okay with Cardiology and EP. at 1202 RPT #:[id number] OF REPORTPRPchelsea s fkxl5070-97-88S35:28:00G.[id number] l able for patient asdxDXGAKLPCDKXEVG7014-47-65K73:03:11 2023-08-04 09:06:00 [id number]:06:00 [facility] ([facility]) Progress NoteREPORT#:[id number] REPORT STATUS: SignedREPOR T INITIALIZATION DATE:08/04/23 TIME: 905 PATIENT: EVELYN GIBSON UNIT #: [id number]#: [id number] [address] [birth year] AGE : 83 SEX: F ATTEND: Apolinar Rankin MDA AUTHOR: Roberto Sahni NPREPT SERVICE DT/TIME: 08/04/23905* ALL edits or amendments must be made on the electronic/computer document * Roberto Sahni 08/04/23905:SubjectiveChief complaint:Palpitations, shortness of breathHPI:This is an 83 year old female with a past medical history of diabetes mellitus type II, hyperlipidemia, back pain, arthritis, vertigo, and breast cancer that presented for chest pressure, palpitations and had atrial fibrillation with RVR and was also found to have critical aortic stenosis. The patient underwent successful implant of an Bliss Ventura S3 23mm valve but then she developed recurrent atrial fibrillation with RVR post operatively. Now we were consulted to evaluate for anticoagulation. Comments:Feeling ok, wanting to go home. Objective GeneralVS/I OLast Documented: Result Date Time Temp 36.5 08/04 0800 Pulse Ox 98 08/04 0501 B/P 116/54 08/04 0501 B/P Mean 78 08/04 0501 Pulse 60 08/04 0501 Resp 18 08/04 0501 O2 Delivery Room air 08/03 0956 24 hour I O ending at 0700: 08/04 0700 08/03 1900 Intake Total 362.00 930.00 Output Total Balance 362.00 930.00 Intake, IV 212.00 210.00 Intake, Oral 150 720 Number 2 Bowel Movements Number Voids 2 4 PATIENT WEIGHT: Weight (lb): 190Weight (oz): 5.82Weight (kg): 86.500 Physical ExamGeneral appearance: alert, awake, oriented, no acute distressHEENT: anictericCardiovascular: CV assessment: regular rate and rhythm, BP pulses = bilaterally, normal heart sounds, systolic murmu r grade 3/6 Respiratory: clear to auscultation, no distressAbdomen: soft, non-tenderExtremities: dry, moves allMusculoskeletal: full range of motionNeuro/SHACKLER: alert, oriented X 3Skin: dry, intactTelemetry Interpretation:Sinus rhythm Diagnosis, Assessment PlanFree Text A P:1. Paroxysmal Atrial Fibrillation with RVRPatient did have some recurrent AF with RVR but now converted to sinus rhythm.Recommend continuing amiodarone 400 mg BID for 5 days then 200 mg BID after along with metoprolol.Also recommend outpatient monitor with Cardiology.Patient is on Eliquis without overt bleeding. 2. Severe Aortic StenosisS/p TAVR procedure, management by CTS/Cardiology.Recovering. Shawn Barney 08/04/23 1451:Attestations Physician AttestationAgree w/findings plan:Agree with the findings and plan as documented * my personal evaluation isPAFAS,S/P TAVRNew onset LBBBContinue amiodaron e as plannedNo sign of AVBConsider Event monitor a s outpatient Shawn Barney MD at 1228 at 1456 RPT #:[id number] OF REPORTPRProgress bzzp1975-14-18N50:06:00G.[id number] l able for patient smblZVIKSHSNLZYVXE3028-63-24J65:29:04 2023-08-03 11:07:00 [id number]:07:00 [facility] ([facility])Cardiology Progress NoteREPORT#:[id number] REPORT STATUS: SignedREPOR T INITIALIZATION DATE:08/03/23 TIME: 1106 PATIENT: EVELYN GIBSON UNIT #: [id number]#: [id number] ROOM/BED: 3301-1DOB: [birth year] AGE : 83 SEX: F ATTEND: Apolinar Rankin AUTHOR: Derrick Tran MDREPT SERVICE DT/TIME: 08/03/23 1107* ALL edits or amendments must be made on the electronic/computer document * SubjectiveChief complaint:SOBHPI:A very pleasant 83-year-old female patient status post breast cystectomy for breast cancer in the past hypertension dyslipidemia. She has been having progressive shortness of breath on exertion as well as chest pressure on exertion she [facility] [place] after she was found out to have severe aortic stenosis onthe echocardiogram. She had cardiac catheterization report but would not have access to the results. Dr. Hernández is her lead operator Review of SystemsRespiratory:Denies: BALBUENA (dyspne a on exertion), SOB. Cardiovascular:Denies: chest pain, [place] (dyspnea on exertion), edema, orthopnea, palpitations, parox nocturnal dyspnea , other. Objective GeneralVS/I O:24 hour I O endin g at 0700: 08/03 0700 08/02 1900 Intake Total 920.00 Output Total Balance 920.00 Intake, IV 200.00 Intake, Oral 720 Number 2 Bowel Movements Number Voids 5 Vital Signs: Date Time Temp Pulse Resp B/P B/P Pulse O2 O2 Flow FiO2 Mean Ox Delivery Rate 08/03 0956 96 Room air 08/03 0800 61 19 129/61 88 98 08/03 0740 71 25 136/63 90 97 08/03 0701 57 14 93/40 58 98 08/03 0618 69 15 138/63 91 99 08/03 0601 55 14 79/36 52 96 08/03 0500 55 15 113/55 79 97 08/03 0401 60 14 103/46 66 97 08/03 0217 67 17 115/57 82 97 08/03 0201 5 8 14 84/38 55 98 08/03 0000 60 14 98/46 66 97 07/23 77 18 99/48 69 96 08/02 1900 102 20 104/48 69 95 08/02 1800 88 25 127/57 82 94 08/02 1700 8 3 16 120/56 81 96 08/02 1600 98.0 66 22 143/64 92 98 08/02 1500 60 19 120/56 81 98 08/02 1401 63 18 113/52 75 99 08/02 1300 63 22 125/56 80 98 08/02 1200 98.0 65 7 116/50 72 97 PATIENT WEIGHT: Weight (lb): 190Weight (oz): 11.2Weight (kg): 86.500 Medications:Medication(s) Ordered:Autonomic Drugs Sig/Vishnu Start time Last Medication Dose Route Stop Time Status Admin Atropine Sulfate 0.5 MG ASDIR PRN 07/30 0915 AC IV 10/28 0914 Blood Formation,Coagulation Sig/Sc h Start time Last Medication Dose Route Stop Time Status Admin Apixaban 5 MG BID 08/01 2100 AC 08/03 PO 10/30 205 0904 Clopidogrel Bisulfate 7 5 MG DAILY 07/30 1200 AC 08/03 PO 10/29 0859 0904 Cardiovascular Drugs Sig/Vishnu Start time Last Medication Dose Route Stop Time Status Admin Amiodarone HCl 200 MG BID 9A 5P 07/31 1700 AC 08/03 PO 10/29 1659 0904 Amiodarone HCl 450 MG ASDIR 07/31 800 CKD 08/02 Dextrose/Water 250 ML IV 10/29 0759 1739 Simvastatin 10 MG 2100 07/27 2100 AC 08/02 PO 10/25 2058 2009 Metoprolol Tartrate 25 MG BID 07/26 1300 AC 08/03 PO 09 Central Nervous System Agents Sig/Vishnu Start time Last Medication Dose Route Stop Time Status Admi n Magnesium Sulfate 50 ML ONCE ONE 08/02 1730 DC 08/02 IV 08/02 1929 1738 Alprazolam 0.5 MG Q8H PRN PRN 07/26 1215 AC 08/02 PO 10/24 1214 1758 Acetaminophen 650 MG Q4H PRN PRN 07/26 0745 AC P O 10/24 0744 Electrolytic, Caloric, And Altaf Sig/Vishnu Start time Last Medication Dose Route Stop Time Status Admin Sodium Chloride 500 ML ASDIR PRN 07/30 0915 AC IV 10/28 0914 Dextrose/Water 125 ML ASDIR PRN 07/26 900 CKD I V 10/24 0859 Dextrose/Water 250 ML ASDIR PRN 07/26 900 CKD IV 10/24 0859 Sodium Chloride 10 ML ASDIR 07/26 0745 AC IV 10/24 0744 Gastrointestinal Drugs Sig/Vishnu Start time Last Medication Dose Route Stop Time Status Admin Polyethylene Glycol 17 GM DAILY 08/02 1015 AC 08/02 PO 10/31 1014 1206 Docusate Sodium 100 MG BID 07/26 09 AC 08/03 PO 10/24 0859 0904 Al Hydrox/Mg Hydrox/ 30 ML Q4H PRN PRN 07/26 0745 A C Simethicone PO 10/24 0744 Ondansetron HCl 4 MG Q6H PRN PRN 07/26 0745 AC 08/01 IV 10/24 0744 1653 Hormones And Synthetic Substit Sig/Vishnu Star t time Last Medication Dose Route Stop Time Status Admin Insulin Human Lispro 0 AC HS 07/26 1130 AC 07/31 SUBQ 10/24 1129 1211 Glucagon 1 MG ASDIR PRN 07/26 09 AC IM 10/24 0859 Skin And Mucous Membrane Agent Sig/Vishnu Start time Last Medicatio n Dose Route Stop Time Status Admin Mupirocin 1 APPLIC BID 07/30 2100 AC 08/03 NASAL 08/04 0901 0904 Status post:TAVR Physical ExamGeneral appearance: awakeHead/Eyes: atraumaticENT: moist mucosal membranesNeck: full range of motionCardiovascular: CV assessment: regular rat e and rhythm, BP pulses = bilaterally, normal hear t sounds, systolic murmur grade 3/6 Respiratory: decreased breath sounds, no distressAbdomen: softGenitourinary: no flank pain, no urinary catheterLower extremity: LE assessment: no edemaNeuro/SHACKLER: alert, oriented X 3Skin: dry, intact, normal colorPsychiatry: normal affect, normal mood ResultsFindings/Data:Laboratory Test s 08/03 08/02 08/02 08/02 0505 2041 1742 1254 Chemistry Sodium (134 - 147 mEq/L) 129 L Potassium (3.4 - 5.0 mEq/L) 4.2 Chloride (100 - 108 mEq/L) 99 L Carbon Dioxide (21 - 33 mEq/l) 2 9 Anion Gap (0 - 20) 5 BUN (7 - 25 mg/dL) 10 Creatinine (0.6 - 1.3 mg/dL) 0.8 Glomerular Filt r Rate (70 - 80) 72.2 Glucose (77 - 141 mg/dL) 106 POC Glucose (70 - 110 MG/DL) 166 H 113 H 118 H Calcium (8.0 - 10.5 mg/dL) 8.6 Magnesium (1.6 - 2.6 mg/dL) 2.26 Laboratory Tests 08/03 0505 Hematology WBC (4.5 - 11.0 x10 3/uL) 10.5 RBC (3.54 - 5.02 x10 6/uL) 3.38 L Hgb (11.0 - 15.0 g/dL) 9.9 L Hct (33.0 - 45.0 %) 30.5 L MCV (81.0 - 99.0 fL) 90.2 MCH (27.0 - 33.0 pg) 29.3 MCHC (33.0 - 37.0 g/dL) 32.5 L RDW (11.5 - 14.5 %) 13.5 Plt Count (150 - 400 x10 3/uL) 210 MPV (7.0 - 9.0 fL) 12.3 H Neut % (Auto) (56.0 - 77.0 %) 68.6 Lymph % (Auto) (14.0 - 32.0 %) 16.6 Van Zandt % (Auto) (4.8 - 9.0 %) 11.6 H Eos % (Auto) (0.3 - 3.7 %) 1.9 Baso % (Auto) (0.0 - 2.0 %) 0.3 Neut # (Auto) (2.0 - 7.6 x10 3/uL) 7.20 Lymph # (Auto) (1.0 - 3.8 x10 3/uL) 1.74 Van Zandt # (Auto) (0.1 - 0.8 x10 3/uL) 1.22 H Eos # (Auto) (0.0 - 0.2 x10 3/uL) 0.20 Baso # (Auto) (0.0 - 0.2 x10 3/uL) 0.03 Abs Immat Gran (auto) (0.00 - 0.03 x10 3/uL ) 0.11 H Immature Gran % (0.0 - 2.0 %) 1.0 Nucleated RBC % (0 - 0 %) 0.0 Nucleated RBCs # (Man) (0.0 - 0.1 x10 3/uL) 0.00 Laboratory Tests 08/03 0505 Chemistry Magnesium (1.6 - 2.6 mg/dL ) 2.26 Results: labs reviewed, vital signs reviewed, vital signs stable Diagnosis, Assessment Plan Free Text DxA P NotesFree Text DxA P Notes:# Symptomatic severe aortic stenosis * Echo: LVEF 60-64% with critical . Peak velocity 5.44, mean PG 73.21, mag PG 118.46, RISHABH VTI 0.6, RISHABH 0.8* 07/30/23: s/p TAVR utilizing Bliss's Ventura S3 Ultra pericardial valve * post TAVR echo reviewed* bilateral groin access stable* continue DAPT # Nausea* antiemetic PRN # Hyponatremia* NA 129 # Paroysmal atrial fibrillation with new LBBB* EKG afib RVR with LBBB which is new* preTAVR EKG without LBBB* continue metoprolol tartrate 25 mg BID and amiodarone 200 mg BID* Lovenox 1 mg/kg x1 dose today* [id number] score 3* EP consult * recurrent afib RVR, rebolus amio, up amio gtt to 1 mg Get PT/OTMobilize OOB Keep in CCU 08/02/23:-S/P TAVR-POST OP A FIB, WAS STARTED ON IV AMIOD + BOLUS AT 8;30 AM, IN NSR-LBBB, POST TAVR, RESOLVED, UNLIKLEY NEED FOR PERMANENT PACEMAKER-CONTINUE AMIOD FOR MOW-EP FOLLOWING 08/03/23:-ON AMIOD DRIP + ELIQUIS 5 MG BID, , IN NSR, EP FOLLOWING-NA+ 129, RESTRICT FLUIDS-NOT O N ANY THIAZIDE DIURETIC - AVOID-NO LONGER IN LBBB at 1140 RPT #:[id number] OF REPORTPRProgress [id number]:07:00G.[id number] l able for patient [id number]:41:04 2023-08-03 10:10:00 [id number]:10:00 [facility] ProgREPORT#:[id number] REPORT STATUS: SignedREPORT INITIALIZATION DATE:08/03/23 TIME: 1010 PATIENT: EVELYN GIBSON UNIT #: [id number]#: [id number] [address] AGE: 83 SEX: F ATTEND: Apolinar Rankin [facility] AUTHOR: Dayna Younger PhysicREPT SERVICE DT/TIME: 08/03/23 1010* ALL edits or amendments must be made on the electronic/computer document * GeneralStatus post:TAVR SubjectiveChief complaint:POST TAVR Review of SystemsConstitutional:Reports: fatigue. Skin:Denies: bruising, contusion, diaphoresis. Allergy/Immun:Denies: hives, itching, rhinorrhea . Eyes:Denies: discharge, visual loss/blurred. ENT:Denies: toothache, voice change. Respiratory:Reports: BALBUENA (dyspnea on exertion). Cardiovascular:Reports: chest pain. GI:Denies: abdominal pain, nausea, vomiting. :Denies: dysuria, flank pain. Musculoskeletal:Denies: nec k pain, thoracic pain. Neuro:Denies: focal weakness, slurred speech, syncope. All systems rev neg: except as marked Objective GeneralVS/I OLast Documented: Result Date Time Pulse Ox 96 08/03 0956 O2 Delivery Room air 08/03 0956 B/P 129/61 08/03 0800 B/P Mean 88 08/03 0800 Pulse 61 08/03 0800 Resp 19 08/03 0800 Temp 98.0 08/02 1600 24 hour I O ending at 0700: 08/03 0700 08/02 1900 Intake Total 920.00 Output Total Balance 920.00 Intake, IV 200.00 Intake, Oral 72 0 Number 2 Bowel Movements Number Voids 5 PATIENT WEIGHT: Weight (lb): 190Weight (oz): 11.2Weight (kg): 86.500 Physical ExamGeneral appearance: alert, awake, orientedHEENT: anicteric, mucosal membranes moist, pupils reactive to lightNeck: full range of motion, non-tenderCardiovascular: irregular rhythm, normal heart soundsRespiratory : aerating well, clear to auscultation, symmetric expansion, no distressAbdomen: soft, non-tenderGenitourinary: no bladder distention, no flank painExtremities: dry, moves all, normal capillary refill, normal temperatureMusculoskeletal: full range of motion , painless range of motionNeuro/SHACKLER: alert, oriented X 3Psychiatry: normal affect, normal judgment/insight Diagnosis, Assessment PlanFree Text A P:83-year-old female, PMHx HTN, diabetes on metformin, HLD, back pain, arthritis, vertigo for which she reportedly takes a Xanax, breast cancer left-sided mastectomy. Patient is transferred to us from [facility], patient of Dr. Hernández, and she reports chest pressure, burning sensation in her throat, sensation of nausea which started a few weeks ago after having a GI illness with vomiting. Patient was evaluated at [facility] for reports of chest pain, and findings of normal EKG, troponins within normal limits, BNP elevated at 1397, UA negative, chest x-ray stable, echocardiogram done with findings of severe aortic stenosis patient referred to us for TAVR evaluation. Patient reports cardiac cat h done at [facility], however, we have no report o f cardiac cath and no CD with echo or heart cath findings. Assessment:Aortic stenosis, TAVR evalHTNDiabetesHyponatremia TTE: 07/27/2023: EF 60 to 64%. Wall motion is normal, no regional wall motion abnormalities. G1 DD. Aortic valve the findings are consistent with critical stenosis. Aortic valve peak velocity is 5.44 m/s , mean PG is estimated at 73.21 mmHg, max PG is estimated at 118.46 mmHg, RISHABH VTI is estimated a t 0.6 cm2, and RISHABH by planimetry is estimated at 0.8 cm2.Mitral valve annulus moderately calcified. No pericardial effusion Patient seen and evaluated by Dr. Rankin and he agrees with plan for TAVR.-TAVR jqbp-hq-Vitmzasmfs lcobkgw-Gcfhavwjuawb-zepnu restriction-Resume prior hospital meds 07/27/2023TAVR eval-Pending CT qzjdv-Mjrurbvsmyqt-bocpn restrictionLeukocytosis, afebrile, UA 1+ leukocyte Estrace. Urine culture pending. Empiri c bactrimPatient with choking episode on food today, patient states as she did not have her dentures in. -- -Pur ed diet, chest x-rayDiscussed with Dr. Rankin 07/31/23POD 1 S/P TAVRPatient went into a fib-RVR. Cardiology managing amio drip startedOn room air. Groins soft. Advance diet as tolerated. Has been out of bed. ECHO ordered. Patient seen and examined by Dr Rankin. 08/01/23POD 2S/P TAVRPatient continues in A fib RVR. Cardiology managing. Groins soft. PT/OT following. Advance diet as tolerated. Echo done. Continue supportive care 08/02/23POD 3S/P TAVRa fib, EP consulted. Echo done, reviewed by cardiology. Patient has been out of bed with PT/OT.Patient reportedly had oozing from bilateral groins incisions last night.Patient seen and examined by . Groins appear soft. No evidence of active bleeding. Continue to monitor per Dr. Curtis . EP following for rhythm managementContinue supportive care. 08/03/23POD 34S/P TAVRa fib, EP consulted. Echo done, reviewed by cardiology. Patient has been out of bed with PT/OT.Patient with small amount of oozing from bilateral groin sites. Will obtain ultrasound. Groins remain soft.Remains sinus rhythm.ICC following. Continu e supportive care. at 1012 at 0934 [facility] #:[id number] OF REPORTPRProgress [id number]:10:00G.[id number] l able for patient [id number]:12:30 2023-08-03 10:05:00 [id number] [address] [place], [place] [address] PATIENT NAME: EVELYN GIBSON ADMIT DATE: 07/26/23ACCOUNT NO: [id number] ROOM NO: G.3301 AGE: 83 REPORT TYPE: eECHOCARDIOGRAM REPORT SEX: F ADMITTING PHYSICIAN:Apolinar Rankin MD ATTENDING PHYSICIAN:Apolinar Rankin MD * [address], [place] [address]Ysmxx: [phone]: [phone] Limited Transthoracic Echocardiogra m Patient: Paul Gibsonudnito Date: 08/01/2023 BP: 133 / 61 Location: ODETTEN: [id number] : 1940 Age: 83 Height: 62 in / 157.5 cmAccession#: [id number] Gender: F Weight: 180.6 lb / 82. 1 kgBMI/BSA: 33.1 kg/m 2 / 1.83 m 2 *Ordering Physician: * Tabitha Herring *Interpreting Physician: * Parmjit Houser MD*Electromedical Service Engineer: Edilma Maxwell - Indications: POST TAVR. - Study data: Transthoracic echocardiogram, limited study. Procedure:Transthoracic echocardiography was performed. Image quality wasadequate. Limited 2D and limited spectral Doppler. Location: Bedside. Patient status: Inpatient. Patient room number: 3301. Study status:Routine. - Findings Left ventricle: The cavity size is normal. Wall thickness is moderatelyincreased. Systolic function is normal . The estimated ejection fractionis 55-60%. Wall motion is normal; there are no regional wall motionabnormalities.Right ventricle: The cavity size is normal. Systolic function isnormal.PATIENT NAME: EVELYN GIBSON Left atrium: The atrium is moderately dilated.Right atrium: The atrium is normal in size.Aorta: Aortic root: The aortic root is normal in size.Aortic valve: There is a bioprosthetic valve.Follow-up TAVR: There is a mild perivalvular leak. There is noevidence of stenosis. There is no regurgitation.Mitral valve : The annulus is moderately to severely calcified. Thereis no evidence of stenosis. There is mild regurgitation.Tricuspid valve: The valve is structurally normal. There is moderateregurgitation.Pulmonic valve: The valve is structurally normal. There is noregurgitation.Pericardium: A trivial pericardial effusion is identified.Pulmonary arteries:Main pulmonary artery: The artery is of normal size.Systemic veins:Inferior vena cava: The vessel is normal in size. - Measurements Left ventricle Value 07/31/2023 Ref ENID, LAX 4.3 cm 3.6 3.8 - 5.2 ESD, LAX 2.9 cm 2.4 2.2 - 3.5 ESD/bsa, 1.6 cm/m 2 1.3 1.3 LAX - 2.1 FS, LAX 3 2 % 33 27 - 45 ESD/bsa 3.3 cm/m 2 3.2 ---- major ax, A4C ENID/bsa 3.3 cm/m 2 3.2 ---- minor ax, A4 C ENID major 6.6 cm 7.6 ---- ax, A2C ENID/bsa 3.6 cm/m 2 4.0 ---- major ax, A2C PW, ED 1.4 cm 1.5 0.6 - 0.9 IVS/PW, ED 0.97 0.96 ---- EF 60 % 62 5 4 - 74 LVOT Value 07/31/2023 Ref Diam, S 2.01 cm 1.90 ---- Area 3.2 cm 2 2.8 ----PATIENT NAME: EVELYN GIBSON Peak nadine, S 1.28 m/sec -1.24 ---- Mean nadine, S 0.8 m/sec 0.86 ---- VTI, S 28.6 cm 22.0 ---- Peak grad, 7 mm Hg 6 ---- S Mean grad, 3 mm Hg 3 ---- S SV 9 1 ml 61 ---- Qs 5.95 L/min 14.52 ---- Qs/bsa 3.2 L/(min-m 2) 7.6 ---- SV/bsa 50 ml/m 2 32 ---- Ventricular septum Value 07/31/2023 Ref IVS, ED 1.4 cm 1.5 0.6 - 0.9 Right ventricle Value 07/31/2023 Ref ENID, LAX 2.8 cm 2.9 ---- Pressure , S 54 mm Hg ---- Left atrium Value 07/31/2023 Ref Vol/bsa, 35 ml/m 2 25 11 - ES, 1- p A4C 40 Vol, ES, 83 ml 60 ---- 2-p Vol/bsa, 45 ml/m 2 31 16 - ES, 2-p 34 Vol/bsa, 40 ml/m 2 27 16 - ES, A/L 34 AP dim, ES 3.7 cm 2.7 MM - 3.8 LA/Ao root 1.14 ---- ratio, MM Aortic valve Value 07/31/2023 Ref Leaflet 1.5 0 cm ---- sep, MM Peak v, S 2 m/sec 1.9 3 ---- Mean v, S 1.24 m/sec 1.37 ---- VTI, S 42.5 cm 41.0 ---- Mean grad, 7.4 mm Hg 8.4 ---- S Pea k grad, 16.1 mm Hg 14.9 ---- S LVOT/AV, 0.67 0.54 ---- VTI ratio RISHABH, VTI 2.14 cm 2 1.52 ---- LVOT/AV, 0.64 ---- Vpeak ratio RISHABH, Vmax 2.03 cm 2 1.85 ---- Mitral valve Value 07/31/2023 RefPATIENT NAME: EVELYN GIBSON E-septal 0.6 cm ---- separation E-F slope 0.04 m/sec ---- Mean v, D 0.81 m/sec 0.74 ---- VTI leaflet 48.3 cm 39.0 ---- coapt Mean grad, 3.2 mm Hg 2.7 ---- D Peak grad, 9.8 mm Hg 9.7 ---- D Pulmonic valve Value 07/31/2023 Ref ND v, ED 0.65 m/sec 2.38 ---- Tricuspid valve Value 07/31/2023 Ref TR peak v 3.33 m/sec <=2. 8 Peak RV-RA 44 mm Hg ---- grad, S Aortic root Value 07/31/2023 Ref Root diam, 3.29 cm ---- ED MM Pulmonary artery Value 07/31/2023 Ref Pressure, S 54.3 mm Hg ---- Systemic veins Value 07/31/2023 Ref Estimated 10 mm Hg --- - CVP - Conclusions Summary: 1. Left ventricle: The cavity size is normal. Wall thickness is moderately increased. Systolic function is normal. The estimated ejection fraction is 55-60%. Wall motion is normal; there are no regional wall motion abnormalities.2. Right ventricle: The RV pressure during systole by Doppler is 54 mm Hg.3. Left atrium: The atriu m is moderately dilated.4. Aortic valve: There is a bioprosthetic valve. There is a mild perivalvula r leak.5. Mitral valve: The annulus is moderately to severely calcified.6. Tricuspid valve: There is moderate regurgitation.7. Pericardium, extracardiac: A trivial pericardial effusion is identified. Prepared and electronically signed b y PATIENT NAME: EVELYN GIBSON Parmjit Houser MD08/03/2023 10:05 at 1005 PATIENT NAME: EVELYN GIBSON :05: 0 0G.[id number] for patient [id number]:06:20 2023-08-02 11:49:00 [id number]:00 [facility] HospitalCard[facility] Progress NoteREPORT#:[id number] REPORT STATUS: SignedREPOR T INITIALIZATION DATE:08/02/23 TIME: 114 PATIENT: EVELYN GIBSON UNIT #: [id number]#: [id number] [address] AGE : 83 SEX: F ATTEND: Apolinar Rankin MDADM AUTHOR: Derrick Tran MDREPT SERVICE DT/TIME: 08/02/23 1149* ALL edits or amendments must be made on the electronic/computer document * SubjectiveChief complaint:SOBHPI:A very pleasant 83-year-old female patient status post breast cystectomy for breast cancer in the past hypertension dyslipidemia. She has been having progressive shortness of breath on exertion as well as chest pressure on exertion [facility] she was found out to have severe aortic stenosis onthe echocardiogram. She had cardiac catheterization report but would not have access to the results. Dr. Hernández is her lead operator Review of SystemsRespiratory:Denies: BALBUENA (dyspne a on exertion), SOB. Cardiovascular:Denies: chest pain, BALBUENA (dyspnea on exertion), edema, orthopnea, palpitations, parox nocturnal dyspnea , other. Objective GeneralVS/I O:24 hour I O endin g at 0700: 08/03 0700 08/02 1900 Intake Total 920.00 Output Total Balance 920.00 Intake, IV 200.00 Intake, Oral 720 Number 2 Bowel Movement s Number Voids 5 Vital Signs: Date Time Temp Pulse Resp B/P B/P Pulse O2 O2 Flow FiO2 Mean Ox Delivery Rate 08/03 0956 96 Room air 08/03 0800 61 19 129/61 88 98 08/03 0740 71 25 136/63 90 97 08/03 0701 57 14 93/40 58 98 08/03 0618 69 15 138/63 91 99 08/03 0601 55 14 79/36 52 96 08/03 0500 55 15 113/55 79 97 08/03 0401 60 14 103/46 66 97 08/03 0217 67 17 115/57 82 97 08/03 0201 5 8 14 84/38 55 98 08/03 0000 60 14 98/46 66 97 07/23 1 2000 77 18 99/48 69 96 08/02 1900 102 20 104/48 69 95 08/02 1800 88 25 127/57 82 94 08/02 1700 8 3 16 120/56 81 96 08/02 1600 98.0 66 22 143/64 92 98 08/02 1500 60 19 120/56 81 98 08/02 1401 63 1 8 113/52 75 99 08/02 1300 63 22 125/56 80 98 08/02 1200 98.0 65 7 116/50 72 97 PATIENT WEIGHT: Weight (lb): 190Weight (oz): 11.2Weight (kg): 86.500 Medications:Active Meds + DC'd Last 24 HrsMagnesium Sulfate (MAGNESIUM SULFATE 2GM/SWFI 50ML) 50 ML ONCE ONE IV (DC) Polyethylene Glycol (MIRALAX) 17 GM DAILY PO Apixaban (ELIQUIS 5MG TABLET) 5 MG BID PO Amiodarone HCl (CORDARONE) 200 MG BID 9A 5P PO Amiodarone HCl (AMIODARONE HCL) 450 MG ASDIR IV (CKD) Dextrose/Water (D5%W NON-DEHP) 250 MLMupirocin (BACTROBAN 2% 22 GM OINTMENT) 1 APPLIC BID NASAL Clopidogrel Bisulfate (Plavix) 75 MG DAILY PO Atropine Sulfate (ATROPINE SULFATE 0.1MG/ML SYR) 0.5 MG ASDIR PRN IV Sodium Chloride (SODIUM CHLORIDE 0.9%) 500 ML ASDIR PRN IV Simvastatin (SIMVASTATIN) 10 MG 2100 PO Metoprolol Tartrate (LOPRESSOR) 25 MG BID PO Alprazolam (XANAX 0.25) 0.5 MG Q8H PRN PRN PO Insulin Human Lispro (HUMALOG) 0 AC HS SUBQ Dextrose/Water (DEXTROSE 10% IN WATER) 125 ML ASDIR PRN IV (CKD) Dextrose/Water (DEXTROSE 10% IN WATER) 250 ML ASDIR PRN IV (CKD) Docusate Sodium (COLACE) 100 MG BID PO Glucagon (GLUCAGON) 1 MG ASDIR PRN IM Acetaminophen (TYLENOL) 650 MG Q4H PRN PRN PO Al Hydrox/Mg Hydrox/Simethicone (MYLANTA) 30 ML Q4H PRN PRN PO Ondansetron HCl (ZOFRAN) 4 MG Q6H PRN PRN IV Sodium Chloride (SODIUM CHLORIDE) 10 ML ASDIR IV Status post:TAVR Physical ExamGeneral appearance: awakeHead/Eyes: atraumaticENT: moist mucosal membranesNeck: full range of motionCardiovascular: CV assessment: regular rat e and rhythm, BP pulses = bilaterally, normal hear t sounds, systolic murmur grade 3/6 Respiratory: decreased breath sounds, no distressAbdomen: softGenitourinary: no flank pain, no urinary catheterLower extremity: LE assessment: no edemaNeuro/SHACKLER: alert, oriented X 3Skin: dry, intact, normal colorPsychiatry: normal affect, normal mood ResultsFindings/Data:Laboratory Test s 08/03 08/02 08/02 08/02 0505 2041 1742 1254 Chemistry Sodium (134 - 147 mEq/L) 129 L Potassium (3.4 - 5.0 mEq/L) 4.2 Chloride (100 - 108 mEq/L) 99 L Carbon Dioxide (21 - 33 mEq/l) 2 9 Anion Gap (0 - 20) 5 BUN (7 - 25 mg/dL) 10 Creatinine (0.6 - 1.3 mg/dL) 0.8 Glomerular Filt r Rate (70 - 80) 72.2 Glucose (77 - 141 mg/dL) 106 POC Glucose (70 - 110 MG/DL) 166 H 113 H 118 H Calcium (8.0 - 10.5 mg/dL) 8.6 Magnesium (1.6 - 2.6 mg/dL) 2.26 Laboratory Tests 08/03 0505 Hematology WBC (4.5 - 11.0 x10 3/uL) 10.5 RBC (3.54 - 5.02 x10 6/uL) 3.38 L Hgb (11.0 - 15.0 g/dL) 9.9 L Hct (33.0 - 45.0 %) 30.5 L MCV (81.0 - 99.0 fL) 90.2 MCH (27.0 - 33.0 pg) 29.3 MCHC (33.0 - 37.0 g/dL) 32.5 L RDW (11.5 - 14.5 %) 13.5 Plt Count (150 - 400 x10 3/uL) 210 MPV (7.0 - 9.0 fL) 12.3 H Neut % (Auto) (56.0 - 77.0 %) 68.6 Lymph % (Auto) (14.0 - 32.0 %) 16.6 Van Zandt % (Auto) (4.8 - 9.0 %) 11.6 H Eos % (Auto) (0.3 - 3.7 %) 1.9 Baso % (Auto) (0.0 - 2.0 %) 0.3 Neut # (Auto) (2.0 - 7.6 x10 3/uL) 7.20 Lymph # (Auto) (1.0 - 3.8 x10 3/uL) 1.74 Van Zandt # (Auto) (0.1 - 0.8 x10 3/uL) 1.22 H Eos # (Auto) (0.0 - 0.2 x10 3/uL) 0.20 Baso # (Auto) (0.0 - 0.2 x10 3/uL) 0.03 Abs Immat Gran (auto) (0.00 - 0.03 x10 3/uL ) 0.11 H Immature Gran % (0.0 - 2.0 %) 1.0 Nucleated RBC % (0 - 0 %) 0.0 Nucleated RBCs # (Man) (0.0 - 0.1 x10 3/uL) 0.00 Laboratory Tests 08/03 0505 Chemistry Magnesium (1.6 - 2.6 mg/dL) 2.26 Results: labs reviewed, vital signs reviewed, vital signs stable Diagnosis, Assessment Plan Free Text DxA P NotesFree Text DxA P Notes:# Symptomatic severe aortic stenosis * Echo: LVEF 60-64% with critical . Peak velocity 5.44, mean PG 73.21, mag PG 118.46, RISHABH VTI 0.6, RISHABH 0.8* 07/30/23: s/p TAVR utilizing Bliss's Ventura S3 Ultra pericardial valve * post TAVR echo reviewed* bilateral groin access stable* continue DAPT # Nausea* antiemetic PRN # Hyponatremia* NA 129 # Paroysmal atrial fibrillation with new LBBB* EKG afib RVR with LBBB which is new* preTAVR EKG without LBBB* continue metoprolol tartrate 25 mg BID and amiodarone 200 mg BID* Lovenox 1 mg/kg x1 dose today* WFM4AP6-TEMo score 3* EP consult * recurrent afib RVR, rebolus amio, up amio gtt to 1 mg Get PT/OTMobilize OOB Keep in CCU 08/02/23:-S/P TAVR-POST OP A FIB, WAS STARTED ON IV AMIOD + BOLUS AT 8;30 AM, IN NSR-LBBB, POST TAVR, RESOLVED, UNLIKLEY NEED FOR PERMANENT PACEMAKER-CONTINUE AMIOD FOR MOW-EP FOLLOWING at 1107 RPT #:[id number] OF REPORTPRProgress [id number]:49:00G.[id number] maria guadalupe able for patient [id number]:08:00 2023-08-02 11:31:00 [id number]:31:00 [facility] ([facility])Clinical NoteREPORT#:[id number] REPORT STATUS: SignedREPOR T INITIALIZATION DATE:08/02/23 TIME: 1131 PATIENT: EVELYN GIBSON UNIT #: [id number]#: [id number] ROOM/BED: [facility]DOB: [birth year] AGE: 83 SEX: F ATTEND: Apolinar Rankin MDA DT : 07/26/23 AUTHOR: Madelyn Caballero NPREPT SERVICE DT/TIME: 08/02/23 1131* ALL edits or amendments must be made on the electronic/computer document * Clinical NoteNote:pt seen and examined - ABUV6klsg RVR converted last night with amio bolus x1. on BB/statin/plavix/eliquishemodynamically stable o n RAtolerating diet, bowel regimen with miralax/colacenegative balanceWBC count stable, afebrilewill cont to monitor peripherally. TX when cleared by CTSplease notify [facility] for any critical care needs [phone] Vital Signs Haroon e Temp Pulse Resp B/P B/P Mean Pulse Ox FiO2 08/01-08/02 97.5-98.2 59-70 15-25 108-133/52-63 73-90 93-99 at 1139 RPT #:[id number] OF REPORTCLClinical pwwl0619-16-88X92:31:00G.[id number] l able for patient djhgKSDWIENJSGGKAP8363-51-35P77:39:28 2023-08-02 08:24:00 [id number] [address] PATIENT NAME: EVELYN GIBSON ADMIT DATE: 07/26/23ACCOUNT NO: [id number] ROOM NO: [facility] AGE: 83 REPORT TYPE: eELECTROCARDIOGRAM REPORT SEX: F ADMITTING PHYSICIAN:Apolinar Rankin MD ATTENDING PHYSICIAN:Apolinar Rankin MD Order:[id number] Reason : , Test Date/Romel e Stamp:FriAug 02 2023 08:24:13Blood Pressure : / mmHGVent. Rate : 132 BPM Atrial Rate : 000 BPM P-R Int : 000 ms QRS Dur : 134 ms QT Int : 336 ms P-R-T Axes : 000 -46 139 degrees QTc In t : 497 ms Atrial fibrillation with rapid ventricular responseLeft axis deviationNonspecific intraventricular blockMinimal voltage criteria for LVH, may be normal variant ( Franco product )Marked T wave abnormality, consider anterolateral ischemiaAbnormal ECGWhen compared with ECG of 01-AUG-2023 09:31,Significant changes have occurredConfirmed by MD FRANKS GERARD ([id number]) on 08/03/2023 9:26:13 PM Referred By: Apolinar stratton Confirmed by:KORTNEY FRANKS MD at 2126 PATIENT NAME: EVELYN GIBSON .[id number] AVAvailable for patient [id number]:26:41 2023-08-02 06:10:00 [id number]:10:00 [facility] ProgREPORT#:[id number] REPORT STATUS: SignedREPORT INITIALIZATION DATE:08/02/23 TIME: 609 PATIENT: EVELYN GIBSON UNIT #: [id number]#: [id number] [address] AGE: 83 SEX: F ATTEND: Apolinar Rankin [facility] AUTHOR: Dayna Younger PhysicREPT SERVICE DT/TIME: 08/02/23 0610* ALL edits or amendments must be made on the electronic/computer document * GeneralPost-op: day 3Status post:TAVR SubjectiveChief complaint:POST TAVR Review of SystemsConstitutional:Reports: fatigue. Skin:Denies: bruising, contusion, diaphoresis. Allergy/Immun:Denies: hives, itching, rhinorrhea . Eyes:Denies: discharge, visual loss/blurred. ENT:Denies: toothache, voice change. Respiratory:Reports: BALBUENA (dyspnea on exertion). Cardiovascular:Reports: chest pain. GI:Denies: abdominal pain, nausea, vomiting. :Denies: dysuria, flank pain. Musculoskeletal:Denies: nec k pain, thoracic pain. Neuro:Denies: focal weakness, slurred speech, syncope. All systems rev neg: except as marked Objective GeneralVS/I OLast Documented: Result Date Time Temp 97.8 08/01 2000 Pulse Ox 98 08/01 1800 B/P 128/61 08/01 1800 B/P Mean 88 08/01 1800 Pulse 68 08/01 1800 Resp 18 08/01 1800 O2 Delivery Room air 08/01 0930 24 hour I O ending at 0700: 08/02 070 0 08/01 1900 Intake Total 300 Output Total 800 900 Balance -800 -600 Intake, Oral 300 Output, Urin e 800 900 PATIENT WEIGHT: Weight (lb): 190Weight (oz): 11.2Weight (kg): 86.500 Physical ExamGeneral appearance: alert, awake, orientedHEENT: anicteric, mucosal membranes moist, pupils reactive to lightNeck: full range of motion, non-tenderCardiovascular: irregular rhythm, normal heart soundsRespiratory: aerating well, clear to auscultation, symmetric expansion , no distressAbdomen: soft, non-tenderGenitourinary: no bladder distention, no flank painExtremities: dry, moves all, normal capillary refill, normal temperatureMusculoskeletal: full range of motion , painless range of motionNeuro/SHACKLER: alert, oriented X 3Psychiatry: normal affect, normal judgment/insight Diagnosis, Assessment PlanFree Text A P:83-year-old female, PMHx HTN, diabetes on metformin, HLD, back pain, arthritis, vertigo for which she reportedly takes a Xanax, breast cancer left-sided mastectomy. Patient is transferred to us from [facility], patient of Dr. Hernández, and she reports chest pressure, burning sensation in her throat, sensation of nausea which started a few weeks ago after having a GI illness with vomiting. Patient was evaluated at [facility] for reports of chest pain, and findings of normal EKG, troponins within normal limits, BNP elevated at 1397, UA negative, chest x-ray stable, echocardiogram done with findings of severe aortic stenosis patient referred to us for TAVR evaluation. Patient reports cardiac cat h done at [facility], however, we have no report o f cardiac cath and no CD with echo or heart cath findings. Assessment:Aortic stenosis, TAVR evalHTNDiabetesHyponatremia TTE: 07/27/2023: EF 60 to 64%. Wall motion is normal, no regional wall motion abnormalities. G1 DD. Aortic valve the findings are consistent with critical stenosis. Aortic valve peak velocity is 5.44 m/s , mean PG is estimated at 73.21 mmHg, max PG is estimated at 118.46 mmHg, RISHABH VTI is estimated a t 0.6 cm2, and RISHABH by planimetry is estimated at 0.8 cm2.Mitral valve annulus moderately calcified. No pericardial effusion Patient seen and evaluated by Dr. Rankin and he agrees with plan for TAVR.-TAVR ghmk-kf-Ffdyohnbdn hjhjoex-Goqtdlbefcdy-alzoz restriction-Resume prior hospital meds 07/27/2023TAVR eval-Pending CT zoovz-Yzcdwsiptjwz-pjnco restrictionLeukocytosis, afebrile, UA 1+ leukocyte Estrace. Urine culture pending. Empiri c bactrimPatient with choking episode on food today, patient states as she did not have her dentures in. -- -Pur ed diet, chest x-rayDiscussed with Dr. Rankin 07/31/23POD 1 S/P TAVRPatient went into a fib-RVR. Cardiology managing amio drip startedOn room air. Groins soft. Advance diet as tolerated. Has been out of bed. ECHO ordered. Patient seen and examined by Dr Rankin. 08/01/23POD 2S/P TAVRPatient continues in A fib RVR. Cardiology managing. Groins soft. PT/OT following. Advance diet as tolerated. Echo done. Continue supportive care 08/02/23POD 3S/P TAVRa fib, EP consulted. Echo done, reviewed by cardiology. Patient has been out of bed with PT/OT.Patient reportedly had oozing from bilateral groins incisions last night.Patient seen and examined by . Groins appear soft. No evidence of active bleeding. Continue to monitor per Dr. Curtis . EP following for rhythm managementContinue supportive care. at 0842 RPT #:[id number] OF REPORTPRProgress [id number]:10:00G.[id number] maria guadalupe able for patient cwdbTJQBNEOZNBAFEE9310-09-27M90:42:30 2023-08-01 09:31:00 [id number] [facility] [place] [address] PATIENT NAME: EVELYN GIBSON ADMIT DATE: 07/26/23ACCOUNT NO: [id number] [place] [facility] 83 REPORT TYPE: eELECTROCARDIOGRAM REPORT SEX: F ADMITTING PHYSICIAN:Apolinar Rankin MD ATTENDING PHYSICIAN:Apolinar Rankin MD Order:[id number] Reason : AFIB RVR Test Date/Time Stamp:FriAug 01 2023 09:31:03Blood Pressure : / mmHGVent. Rate : 075 BPM Atrial Rate : 075 BPM P-R Int : 158 ms QRS Dur : 146 ms QT Int : 466 ms P-R-T Axes : 084 -21 120 degrees QTc Int : 520 ms Normal sinus rhythmPossible Left atrial enlargementLeft bundl e branch blockAbnormal ECGWhen compared with ECG o f 31-JUL-2023 10:18,No significant change was foundConfirmed by MD FRANKS GERARD ([id number]) on 08/07/2023 9:02:00 PM Referred By: Apolinar Vasquez e Confirmed by:KORTNEY FRANKS MD at 2102 PATIENT NAME: EEVLYN GIBSON .[id number] AVAvailable for patient allaZGTSRYBOQQXVHJ8073-32-05U27:02:22 2023-08-01 09:30:00 [id number]:30:00 [facility] ProgREPORT#:[id number] REPORT STATUS: SignedREPORT INITIALIZATION DATE:08/01/23 TIME: 929 PATIENT: EVELYN GIBSON UNIT #: [id number]#: [id number] [address] AGE: 83 SEX: F ATTEND: Apolinar Rankin MDADM AUTHOR: Dayna Younger PhysicREPT SERVICE DT/TIME: 08/01/23929* ALL edits or amendments must be made on the electronic/computer document * GeneralPost-op: day 2Status post:TAVR SubjectiveChief complaint:POST TAVR Review of SystemsConstitutional:Reports: fatigue. Skin:Denies: bruising, contusion, diaphoresis. Allergy/Immun:Denies: hives, itching, rhinorrhea . Eyes:Denies: discharge, visual loss/blurred. ENT:Denies: toothache, voice change. Respiratory:Reports: BALBUENA (dyspnea on exertion). Cardiovascular:Reports: chest pain. GI:Denies: abdominal pain, nausea, vomiting. :Denies: dysuria, flank pain. Musculoskeletal:Denies: nec k pain, thoracic pain. Neuro:Denies: focal weakness, slurred speech, syncope. All systems rev neg: except as marked Objective GeneralVS/I OLast Documented: Result Date Time Temp 97.5 08/01 0810 Pulse Ox 86 08/01 0800 B/P 113/75 08/01 0800 B/P Mean 90 08/01 0800 Pulse 130 11/1 0 0800 Resp 15 08/01 0701 O2 Delivery Room air 07/30 2130 24 hour I O ending at 0700: 11/10 070 0 07/31 1900 Intake Total 388.00 633.00 Output Total 600 1100 Balance -212.00 -467.00 Intake, I V 188.00 358.00 Intake, Oral 200 275 Output, Urine 600 1100 PATIENT WEIGHT: Weight (lb): 190Weight (oz): 11.2Weight (kg): 86.500 Physical ExamGeneral appearance: alert, awake, orientedHEENT: anicteric, mucosal membranes moist, pupils reactive to lightNeck: full range of motion, non-tenderCardiovascular: irregular rhythm, normal heart soundsRespiratory: aerating well, clear to auscultation, symmetric expansion , no distressAbdomen: soft, non-tenderGenitourinary: no bladder distention, no flank painExtremities: dry, moves all, normal capillary refill, normal temperatureMusculoskeletal: full range of motion , painless range of motionNeuro/SHACKLER: alert, oriented X 3Psychiatry: normal affect, normal judgment/insight Diagnosis, Assessment PlanFree Text A P:83-year-old female, PMHx HTN, diabetes on metformin, HLD, back pain, arthritis, vertigo for which she reportedly takes a Xanax, breast cancer left-sided mastectomy. Patient is transferred to us from [facility], patient of Dr. Hernández, and she reports chest pressure, burning sensation in her throat, sensation of nausea which started a few weeks ago after having a GI illness with vomiting. Patient was evaluated at [facility] for reports of chest pain, and findings of normal EKG, troponins within normal limits, BNP elevated at 1397, UA negative, chest x-ray stable, echocardiogram done with findings of severe aortic stenosis patient referred to us for TAVR evaluation. Patient reports cardiac cat h done at [facility], however, we have no report o f cardiac cath and no CD with echo or heart cath findings. Assessment:Aortic stenosis, TAVR evalHTNDiabetesHyponatremia TTE: 07/27/2023: EF 60 to 64%. Wall motion is normal, no regional wall motion abnormalities. G1 DD. Aortic valve the findings are consistent with critical stenosis. Aortic valve peak velocity is 5.44 m/s , mean PG is estimated at 73.21 mmHg, max PG is estimated at 118.46 mmHg, RISHABH VTI is estimated a t 0.6 cm2, and RISHABH by planimetry is estimated at 0.8 cm2.Mitral valve annulus moderately calcified. No pericardial effusion Patient seen and evaluated by Dr. Rankin and he agrees with plan for TAVR.-TAVR sjpb-mx-Ridlsozuak ycihcms-Dinywnrdacwu-auodh restriction-Resume prior hospital meds 07/27/2023TAVR eval-Pending CT ecxcu-Sudjhcypzoaz-ahtwp restrictionLeukocytosis, afebrile, UA 1+ leukocyte Estrace. Urine culture pending. Empiri c bactrimPatient with choking episode on food today, patient states as she did not have her dentures in. -- -Pur ed diet, chest x-rayDiscussed with Dr. Rankin 07/31/23POD 1 S/P TAVRPatient went into a fib-RVR. Cardiology managing amio drip startedOn room air. Groins soft. Advance diet as tolerated. Has been out of bed. ECHO ordered. Patient seen and examined by Dr Rankin. 08/01/23POD 2S/P TAVRPatient continues in A fib RVR. Cardiology managing. Groins soft. PT/OT following. Advance diet as tolerated. Echo done. Continue supportive care at 0933 RPT #:[id number] OF REPORTPRProgress [id number]:30:00G.[id number] l able for patient sodlZJQDEVTBEFLTYT8445-19-97J80:34:08 2023-08-01 09:29:00 [id number] [facility] [address] PATIENT NAME: EVELYN GIBSON ADMIT DATE: 07/26/23ACCOUNT NO: [id number] ROOM NO: 330 AGE: 83 REPORT TYPE: eECHOCARDIOGRAM REPORT SEX: F ADMITTING PHYSICIAN:Erika Rankin MD ATTENDING PHYSICIAN:Apolinar Rankin MD * A [address] [address]Eutsl: [phone]: [phone] Transthoracic Echocardiogram Patient: Gareth Gibson Date: 07/31/2023 BP: 117 / 57 Location: NATIRN: [id number] : 1940 Age: 83 Height: 61 in / 154.9 cmAccession#: [id number] Gender: F Weight: 180.6 lb / 82.1 kgBMI/BSA: 34.2 kg/m 2 / 1.92 m 2 *Ordering Physician: * Kameron Degroot NP *Interpreting Physician: * Parmjit Houser MD*Electromedical Service Engineer: * Katie Heredia [facility] - Indications: S/P TAVR. - Study data: Transthoracic echocardiogram. Procedure: Transthoracicechocardiography was performed. Images were obtained using a [employer] cardiacBitbondrasYadaHome d machine. Image quality was good. Complete 2D, completespectral Doppler, and color Doppler. Location: CCU Patient status:Inpatient. Patient room number: 3301. Study status: [facility]. - Findings Left ventricle: The cavity size is normal. Wall thickness is moderatelyincreased. Systolic function is normal . The estimated ejection fractionis 55-60%. Wall motion is normal; there are no regional wall motionabnormalities. Doppler parameters are consistent with abnormal leftventricular relaxation (grade 1 diastolic dysfunction).Right ventricle: The cavity size is normal. Systolic function isPATIENT NAME: EVELYN GIBSON normal.Left atrium: The atrium i s normal in size.Right atrium: The atrium is miguel l in size.Aorta: Aortic root: The aortic root is normal in size.Aortic valve: There is a bioprosthetic valve. There is no evidence ofstenosis. There is no regurgitation.Mitral valve: The annulus is moderately to severely calcified. Thereis no evidence of stenosis. Ther e is mild regurgitation.Tricuspid valve: The valve is structurally normal. There is mildregurgitation.Pulmonic valve: The valve is structurally normal. There is noregurgitation.Pericardium: There is no pericardial effusion.Pulmonary arteries:The main pulmonary artery is normal-sized.Systemic veins:Inferior vena cava: The vessel is normal i n size. The respirophasicdiameter changes are in the normal range (= 50%). - Measurements Left ventricle Value 07/30/2023 Ref ENID, LAX 3.6 cm 4.3 3.8 - 5.2 ESD, LAX 2.4 cm 3.0 2.2 - 3.5 ESD/bsa, 1.3 cm/m 2 1.7 1.3 LAX - 2.1 FS, LAX 33 % 29 27 - 45 ESD/bsa 3.2 cm/m 2 2.8 ---- major ax, A4C ENDI/bsa 3.2 cm/m 2 2.8 ---- minor ax, A4C ENID major 7.6 cm 6.0 ---- ax, A2C ESD major 6.4 cm ---- ax, A2C ENID/bsa 4.0 cm/m 2 3.3 ---- major ax, A2C ESD/bsa 3.3 cm/m 2 ---- major ax, A2C PW, ED 1.5 cm 1.2 0.6 - 0.9 IVS/PW, ED 0.96 1.05 ----PATIENT NAME : EVELYN GIBSON EF 62 % 5 6 54 - 74 E', lat -6.0 cm/sec >=10 claire, TDI .0 E/e', lat -14 ---- claire, TDI E', med -4.8 cm/sec >=7. claire, TDI 0 E/e', med -18 ---- claire, TDI E', avg, 5.4 cm/sec ---- TDI E/e', avg, 16 <=14 TDI LVOT Value 07/30/2023 Ref Diam, S 1.90 cm 1.97 ---- Area 2.8 cm 2 3.0 ---- Peak nadine, -1.24 m/sec 1.1 ---- S Mean nadine, 0.86 m/sec 0.74 ---- S VTI, S 22.0 cm 28.8 ---- Peak grad, 6 mm Hg 5 ---- S Mean grad, 3 mm Hg 2 ---- S SV 61 ml 88 ---- Qs 14.52 L/min 5.47 ---- Qs/bsa 7.6 L/(min-m 2) 3 ---- SV/bsa 32 ml/m 2 4 8 ---- Ventricular septum Value 07/30/2023 Ref IVS , ED 1.5 cm 1.3 0.6 - 0.9 Right ventricle Value 07/30/2023 Ref ENID, LAX 2.9 cm 2.2 ---- TAPSE, M M 2.4 cm 1.7 - 3.1 Left atrium Value 07/30/2023 Ref AP dim, ES 3.80 cm 2.7 0 - 3.80 Vol/bsa, 25 ml/m 2 30 11 - ES, 1-p 40 A4 C Vol, ES, 60 ml 72 ---- 2-p Vol/bsa, 31 ml/m 2 39 16 - ES, 2-p 34PATIENT NAME: EVELYN GIBSON Vol/bsa, 27 ml/m 2 33 16 - ES, A/L 34 Aortic valve Value 07/30/2023 Ref Peak v, S 1.93 m/sec 5.17 ---- Mean v, S 1.37 m/sec 4 ---- VTI, S 41.0 cm 132.6 ---- Mean grad, 8.4 mm Hg 68.1 ---- S Peak grad, 14.9 mm H g 107.1 ---- S LVOT/AV, 0.54 0.22 ---- VTI ratio RISHABH, VTI 1.52 cm 2 0.71 ---- RISHABH, Vmax 1.85 cm 2 0.64 ---- Mitral valve Value 07/30/2023 Ref Peak E -0.05 m/sec ---- Peak A 1.39 m/sec ---- Mean v, D 0.74 m/sec ---- VTI 39.0 cm ---- leaflet coapt Decel time 229 ms ---- Mean grad, 2.7 mm Hg ---- D Peak grad, 9.7 mm Hg ---- D Peak E/A 0.6 ---- ratio Pulmonic valve Value 07/30/2023 Ref ND v, ED 2.38 m/sec 0.62 ---- ND grad, 23 mm Hg ---- ED Aortic root Value 07/30/2023 Ref Root diam 3.6 cm <4.1 - Conclusions Summary: 1. Left ventricle: The cavity size is normal. Wall thickness is moderately increased. Systolic function is normal. The estimated ejection fraction is 55-60%. Wall motion is normal; there are no regional wall motion abnormalities. Doppler parameters are consistent with abnormal left ventricular relaxation (grade 1 diastolic dysfunction).2. Aortic valve: There is a bioprosthetic valve.3. Mitral valve: The annulus is moderately to severely calcified. Prepared an d electronically signed byPATIENT NAME: EVELYN GIBSON Parmjit Houser MD08/01/2023 09:29 at 0929 PATIENT NAME: EVELYN GIBSON :29: 0 0G.[id number] for patient ilctWSZPCDAEQPJPPO1461-05-57M16:29:58 2023-08-01 09:27:00 [id number]:27:00 [facility] ([facility])EP Consultation NoteREPORT#:[id number] REPORT STATUS: SignedREPOR T INITIALIZATION DATE:08/01/23 TIME: 926 PATIENT: EVELYN GIBSON UNIT #: [id number]#: [id number] [address] AGE : 83 SEX: F ATTEND: Apolinar Rankin AUTHOR: Roberto Sahni NPREPT SERVICE DT/TIME: 08/01/23926* ALL edits or amendments must be made on the electronic/computer document * History of Present IllnessRequesting clinician : Dr. Adkins for consult:AnticoagulationChief complaint:Palpitations, shortness of breathHPI:This is an 83 year old female with a past medical history of diabetes mellitus type II, hyperlipidemia, back pain, arthritis, vertigo, and breast cancer that presented for chest pressure, palpitations and had atrial fibrillation with RVR and was also found to have critical aortic stenosis. The patient underwent successful implant of an Bliss Ventura S3 23mm valve but then she developed recurrent atrial fibrillation with RVR post operatively. Now we were consulted to evaluate for anticoagulation. History - Adult longitudinalSmoking status for patients 13 years old or older: Former SmokerAllergies:Coded Allergies:diphenhydramine (From BENADRYL ALLERGY) (NAUSEA/VOMITING 07/26/23) Review of SystemsCardiovascular:Denies : chest pain, BALBUENA (dyspnea on exertion), edema, orthopnea, palpitations, parox nocturnal dyspnea , other. ObjectiveVS/I OLast Documented: Result Date Time Temp 36.6 08/01 1214 Pulse Ox 99 07/23 0 1100 B/P 108/54 08/01 1100 B/P Mean 78 08/01 1100 Pulse 59 08/01 1100 Resp 18 08/01 1100 O2 Delivery Room air 08/01 0930 24 hour I O ending at 0700: 08/01 0700 07/31 1900 Intake Total 388.00 633.00 Output Total 600 1100 Balance -212.00 -467.00 Intake, IV 188.00 358.00 Intake, Oral 200 275 Output, Urine 600 1100 PATIENT WEIGHT: Weight (lb): 190Weight (oz): 11.2Weight (kg): 86.500 General appearance: alert, awake, orientedHEENT: anictericCardiovascular: CV assessment: regular rate and rhythm, BP pulses = bilaterally, normal heart sounds, systolic murmu r grade 3/6 Respiratory: clear to auscultation, no distressAbdomen: soft, non-tenderExtremities: dry, moves allMusculoskeletal: full range of motionNeuro/SHACKLER: alert, oriented X 3Skin: dry, intactTelemetry Interpretation:Sinus rhythm Diagnosis, Assessment PlanFree Text A P:1. Paroxysmal Atrial Fibrillation with RVRThe patient is currently sinus rhythm and is on amiodarone.Amiodarone drip can be completed as she is PO dosing along with a beta woody.Echocardiogram reviewed, left atrium is not dilated.Her Ngf0zpbr score is 5 and will nee d detention anticoagulation.HASBLEd score is 2 so she is in the moderate range but no high.We woul d recommend Eliquis along with plavix given recent TAVR valve implant.Anticoagulation discussed wit h Cardiology.Patient did mention a mechanical fall one time early this year but no recurrent falls.Discussed risks/benefits/alternatives and patient agrees with anticoagulation. 2. Severe Aortic StenosisS/p TAVR procedure, management by CTS/Cardiology.Recovering.ZRB1KB3-IEOq Score ALV2QI6-FPNr Score Response Value CHF: No 0 HTN: Yes 1 age greater than 75 years: Yes 2 age between 65 and 74 yrs: No 0 hx stroke, TIA, or TE: No 0 vascular disease: No 0 diabetes mellitus: Yes 1 female: Yes 1 Total 5 HAS-BLED Score HAS-BLED Score Response Value uncontrolle d HTN-SBP>160 No 0 abn renal fxn/creat>=2.6 No 0 abnormal liver function: No 0 age 65 yrs or greater: Yes 1 hx of stroke: No 0 bleeding: No 0 labile INR: No 0 use of drugs w/bleed risk: Antiplatelet/ASA 325mg 1 excess ETOH:>8drinks/wk No 0 Total 2 Plan discussed with: patient at 1409 at 2100 RPT #:[id number] OF REPORTWWRuwelfwqodyi3162-91-76T45:27:00G.PDOC 2 [id number] for patient cmovPHUREUILDPABCC4199-20-06V98:10:09 2023-08-01 08:22:00 [id number]:22:00 [facility] ([facility])Cardiology Progress NoteREPORT#:[id number] REPORT STATUS: SignedREPOR T INITIALIZATION DATE:08/01/23 TIME: 821 PATIENT: EVELYN GIBSON UNIT #: [id number]#: [id number] [address] AGE : 83 SEX: F ATTEND: Apolinar Rankin MDADM AUTHOR: Tabitha Herring AGACNPREPT SERVICE DT/TIME: 08/01/23821* ALL edits or amendments must be made on the electronic/computer document * SubjectiveComments:recurrent afib RVR, LBBB. Anxious. Objective GeneralVS/I O:24 hour I O ending at 0700: 08/01 0700 07/31 1900 Intake Total 388.00 633.00 Output Total 600 1100 Balanc e -212.00 -467.00 Intake, IV 188.00 358.00 Intake, Oral 200 275 Output, Urine 600 1100 Vital Signs : Date Time Temp Pulse Resp B/P B/P Pulse O2 O2 Flow FiO2 Mean Ox Delivery Rate 08/01 0810 36.4 08/01 0800 130 113/75 90 86 08/01 0701 60 15 101/49 71 97 08/01 0600 63 14 101/49 70 98 11 0 0533 36.6 08/01 0500 86 16 100/51 72 94 08/01 0401 92 17 110/56 76 90 08/01 0301 81 27 156/67 97 98 08/01 0200 59 14 112/53 77 98 08/01 0100 5 8 14 105/51 74 98 08/01 0001 62 14 104/49 70 97 07/31 2300 71 20 140/63 90 99 07/31 2201 60 14 91/44 63 97 07/31 2100 127 13 112/49 70 95 07/31 2001 129 18 116/53 76 97 07/31 2000 36.5 07/31 1900 110 18 150/66 95 95 07/31 1702 36.6 73 32 145/67 97 90 07/31 1600 64 28 123/56 81 99 07/31 1501 62 19 117/54 78 98 07/31 1429 61 19 127/59 85 99 07/31 1200 36.7 63 19 117/57 82 98 07/31 1101 67 17 120/55 79 99 07/31 1033 66 18 99 11/0 9 1000 75 19 112/54 78 99 07/31 0900 80 17 110/55 76 98 07/31 0845 88 16 130/62 89 97 07/31 0830 114 19 136/61 88 93 PATIENT WEIGHT: Weight (lb): 190Weight (oz): 11.2Weight (kg): 86.500 Medications:Active Meds + DC'd Last 24 HrsAmiodarone HCl (CORDARONE) 200 MG BID 9A 5P P O Enoxaparin Sodium (lovENOX) 90 MG ONCE ONE SUBQ (DC) Amiodarone HCl (AMIODARONE HCL) 450 MG ASDI R IV (CKD) Dextrose/Water (D5%W NON-DEHP) 250 MLMupirocin (BACTROBAN 2% 22 GM OINTMENT) 1 APPLIC BID NASAL Clopidogrel Bisulfate (Plavix) 75 MG DAILY PO Atropine Sulfate (ATROPINE SULFAT E 0.1MG/ML SYR) 0.5 MG ASDIR PRN IV Sodium Chlorid e (SODIUM CHLORIDE 0.9%) 500 ML ASDIR PRN IV Simvastatin (SIMVASTATIN) 10 MG 2100 PO Aspirin (ASPIRIN) 81 MG DAILY PO Metoprolol Tartrate (LOPRESSOR) 25 MG BID PO Alprazolam (XANAX 0.25) 0.5 MG Q8H PRN PRN PO Insulin Human Lispro (HUMALOG) 0 AC HS SUBQ Dextrose/Water (DEXTROSE 10% IN WATER) 125 ML ASDIR PRN IV (CKD) Dextrose/Water (DEXTROSE 10% IN WATER) 250 ML ASDIR PRN IV (CKD) Docusate Sodium (COLACE) 100 MG BID PO Glucagon (GLUCAGON) 1 MG ASDIR PRN IM Acetaminophen (TYLENOL) 650 MG Q4H PRN PRN PO A l Hydrox/Mg Hydrox/Simethicone (MYLANTA) 30 ML Q4H PRN PRN PO Ondansetron HCl (ZOFRAN) 4 MG Q6H PRN PRN IV Sodium Chloride (SODIUM CHLORIDE) 10 ML ASDIR IV Physical ExamGeneral appearance: agitated, alert, awakeHead/Eyes: atraumaticENT: moist mucosal membranesNeck: full range of motionCardiovascular: CV assessment: irregularly irregular, tachycardia, systolic murmur grade 3/ 6 Respiratory: decreased breath sounds, no distressAbdomen: softGenitourinary: no flank pain, no urinary catheterLower extremity: LE assessment: no edemaNeuro/SHACKLER: alert, oriented X 3Skin: dry, intact, normal colorPsychiatry: normal affect, normal mood ResultsFindings/Data:Laboratory Tests 08/0120 0348 1606 1106 Chemistry Sodium (134 - 147 mEq/L) 129 L Potassium (3.4 - 5.0 mEq/L) 4.0 Chloride (100 - 108 mEq/L) 98 L Carbon Dioxide (21 - 33 mEq/l) 29 Anion Gap (0 - 20) 7 BUN (7 - 25 mg/dL) 12 Creatinine (0.6 - 1.3 mg/dL) 0.7 Glomerular Filtr Rate (70 - 80) 84.7 H Glucose (77 - 141 mg/dL) 119 POC Glucose (70 - 110 MG/DL) 109 107 178 H Calcium (8.0 - 10.5 mg/dL) 9.1 Magnesium (1.6 - 2.6 mg/dL) 1.90 Laboratory Tests 08/01 0348 Hematology WBC (4.5 - 11.0 x10 3/uL) 13.7 H RBC (3.54 - 5.02 x10 6/uL) 4.22 Hgb (11.0 - 15.0 g/dL) 12.2 Hct (33. 0 - 45.0 %) 37.9 MCV (81.0 - 99.0 fL) 89.8 MCH (27.0 - 33.0 pg) 28.9 MCHC (33.0 - 37.0 g/dL) 32.2 L RDW (11.5 - 14.5 %) 13.3 Plt Count (150 - 400 x10 3/uL) 218 MPV (7.0 - 9.0 fL) 12.0 H Neut % (Auto) (56.0 - 77.0 %) 75.3 Lymph % (Auto) (14.0 - 32.0 %) 11.3 L Van Zandt % (Auto) (4.8 - 9.0 %) 11.3 H Eos % (Auto) (0.3 - 3.7 %) 1.2 Baso % (Auto) (0.0 - 2.0 %) 0.3 Neut # (Auto) (2.0 - 7. 6 x10 3/uL) 10.32 H Lymph # (Auto) (1.0 - 3.8 x10 3/uL) 1.55 Van Zandt # (Auto) (0.1 - 0.8 x10 3/uL) 1.55 H Eos # (Auto) (0.0 - 0.2 x10 3/uL) 0.17 Baso # (Auto) (0.0 - 0.2 x10 3/uL) 0.04 Abs Miriam t Gran (auto) (0.00 - 0.03 x10 3/uL) 0.08 H Immature Gran % (0.0 - 2.0 %) 0.6 Nucleated RBC % (0 - 0 %) 0.0 Nucleated RBCs # (Man) (0.0 - 0.1 x10 3/uL) 0.00 Laboratory Tests 08/01 0348 Chemistry Magnesium (1.6 - 2.6 mg/dL) 1.90 Results: labs reviewed, vital signs reviewedEKG Interpretation: atrial fibrillation, left bundle branch blockTelemetry Interpretation:afib RVR Diagnosis, Assessment PlanPlan discussed with: patient, admitting physician, collaborating MD, nurse Free Text DxA P NotesFree Text DxA P Notes:# Symptomatic severe aortic stenosis * Echo: LVEF 60-64% with critical . Peak velocit y 5.44, mean PG 73.21, mag PG 118.46, RISHABH VTI 0.6, RISHABH 0.8* 07/30/23: s/p TAVR utilizing Bliss's Ventura S3 Ultra pericardial valve * post TAVR echo reviewed* bilateral groin access stable* continue DAPT # Nausea* antiemetic PRN # Hyponatremia* NA 129 # Paroysmal atrial fibrillation with new LBBB* EKG afib RVR with LBBB which is new* preTAVR EKG without LBBB* continue metoprolol tartrate 25 mg BID and amiodarone 200 mg BID* Lovenox 1 mg/kg x1 dose today* FFR0ZB8-PSDx score 3* EP consult * recurrent afib RVR, rebolus amio, up amio gtt to 1 mg Get PT/OTMobilize OOB Keep in CCU at 0910 at 1441 RPT #:[id number] OF REPORTPRProgress [id number]:22:00G.[id number] l able for patient [id number]:10:14 2023-07-31 11:42:00 [id number]:42:00 [facility] ([facility])Structural Heart Post ProgressREPORT#:[id number] REPORT STATUS: SignedREPORT INITIALIZATION DATE:07/31/23 TIME: 1142 PATIENT: EVELYN GIBSON UNIT #: [id number]#: [id number] [address] AGE: 83 SEX: F ATTEND: Apolinar Rankin [facility] AUTHOR: Roberto Sahni NPREPT SERVICE DT/TIME: 07/31/23 1142* ALL edits or amendments must be made on th e electronic/computer document * History of Presen t Illness HPIReferring lead operator:Dr. Hernández/Tremaine date: 07/30/23TAVR procedure: Valve type: Bliss Ventura S3 Valve size: 23 Approach: transfemoralNYHA classification: III: acute on chronicHPI:This is an 83 year old female with a past medical histor y of diabetes mellitus type II, hyperlipidemia, back pain, arthritis, vertigo, and breast cancer that presented for chest pressure, palpitations and had atrial fibrillation with RVR and was als o found to have critical aortic stenosis. The patient underwent successful implant of an Bliss Ventura S3 23mm valve and was monitored overnight. Patient did well but did have some atrial fibrillation with RVR and was started on amiodarone. HistorySmoking status for patients 1 3 years old or older: Former Smoker Medication/Allergy-Vaccine HxAllergies:Coded Allergies:diphenhydramine (From BENADRYL ALLERGY ) (NAUSEA/VOMITING 07/26/23) Objective Vital SignsNursing documented vitals:Last Documented: Result Date Time Pulse Ox 99 07/31 1101 B/P 120/55 07/31 1101 B/P Mean 79 07/31 1101 Pulse 6 7 07/31 1101 Resp 17 07/31 1101 O2 Delivery Room air 07/300 Temp 36.6 07/30 2000 Physical ExamMedications:Active Meds + DC'd Last 24 HrsAmiodarone HCl (AMIODARONE HCL) 450 MG ASDIR IV (CKD) Dextrose/Water (D5%W NON-DEHP) 250 MLAmiodarone HCl (NEXTERONE 150MG/D5W 100ML) 100 ML STAT STA IV (DC) Calcium Gluconate (Calcium Gluconate 1 GM/NS 50 mL (B2)) 50 ML ONCE ONE IV (CAN) Mupirocin (BACTROBAN 2% 22 GM OINTMENT) 1 APPLIC BID NASAL Clopidogrel Bisulfate (Plavix) 75 MG DAILY PO Clopidogrel Bisulfate (Plavix) 0 .STK-MED ONE .ROUTE (DC) Atropine Sulfate (ATROPINE SULFATE 0.1MG/ML SYR) 0.5 MG ASDIR PRN IV Sodium Chloride (SODIUM CHLORIDE 0.9%) 500 ML ASDIR PRN IV Fentanyl Citrate (SUBLIMAZE) 100 MC G PACU Q10MIN PRN PRN IV (DC) Fentanyl Citrate (SUBLIMAZE) 50 MCG PACU Q10MIN PRN PRN IV (DC) Hydralazine HCl (APRESOLINE) 5 MG PACU Q10MIN ND N PRN IV (DC) Hydrocodone Bitart/Acetaminophen (NORCO 5/325) 1 TAB PACU ONCE PO (DC) Hydromorphone HCl (DILAUDID) 1 MG PACU Q10MIN ND N PRN IV (DC) Hydromorphone HCl (DILAUDID) 0.5 MG PACU Q5MIN PRN PRN IV (DC) Insulin Human Lispro (HUMALOG) 0 PACU ONCE PRN SUBQ (DC) Labetalol HC l (LABETALOL HCL) 5 MG PACU Q10MIN PRN PRN IV (DC) Meperidine HCl (MEPERIDINE HCL/PF) 12.5 MG PACU ONCE PRN IV (DC) Morphine Sulfate (morphine SULFATE) 2 MG PACU Q10MIN PRN PRN IV (DC) Ondansetron HCl (ZOFRAN) 4 MG PACU ONCE PRN IV (DC) Ropivacaine (NAROPIN 0.5% 150 MG/30mL) 150 MG ASDIR PRN LOCAL (DC) Tramadol HCl (ULTRAM) 50 MG PACU ONCE PO (DC) Simvastatin (SIMVASTATIN) 1 0 MG 2100 PO Aspirin (ASPIRIN) 81 MG DAILY PO Metoprolol Tartrate (LOPRESSOR) 25 MG BID PO Alprazolam (XANAX 0.25) 0.5 MG Q8H PRN PRN PO Insulin Human Lispro (HUMALOG) 0 AC HS SUBQ Dextrose/Water (DEXTROSE 10% IN WATER) 125 ML ASDIR PRN IV (CKD) Dextrose/Water (DEXTROSE 10% IN WATER) 250 ML ASDIR PRN IV (CKD) Docusate Sodium (COLACE) 100 MG BID PO Glucagon (GLUCAGON ) 1 MG ASDIR PRN IM Acetaminophen (TYLENOL) 650 MG Q4H PRN PRN PO Al Hydrox/Mg Hydrox/Simethicone (MYLANTA) 30 ML Q4H PRN PRN PO Ondansetron HCl (ZOFRAN) 4 MG Q6H PRN PRN IV Sodium Chloride (SODIUM CHLORIDE) 10 ML ASDIR IV General appearance: alert, awake, oriented, no acute distressWound/incision: Location: bilat. lower extremities, bilateral groins CDI without bleeding/hematomaNeck: non-tenderCardiovascular: BP/pulses equal bilat., normal heart sounds, regular rate rhythm, no ectopy, no gallopRespiratory: aerating well, clear to auscultation, symmetric expansion, no distressAbdomen: softExtremities: dry, moves allMusculoskeletal: full range of motion, painless range of motion, straight leg raise negNeuro/SHACKLER: alert, oriented X 3, CNII-XII intact, NL cerebellar functionSkin: dry Diagnosis, Assessment Plan Diagnosis, Assessment PlanFree Text A P:1. Severe Symptomatic Aortic StenosisPatient underwent successful Bilss Ventura S3 23mm Valve.Continue aspirin and plavix , but given AF uPatient was monitored, vital signs stable, labs reviewed.She did have some atrial fibrillation with RVR today but has since been started on amiodarone and converted to sinus rhythm.Echocardiogram reviewed by Cardiology and CTS is following. 2. Atrial Fibrillation with RVROn amiodarone and currently in sinus rhythm.Continue amiodarone.Cardiology is managing. 3. HypertensionBlood pressures are reasonable. NZE5CO3-AXPb Score: UWC3WP5-WQBz Score: Response Value CHF: Yes 1 HTN: Yes 1 age greater than 75 years: Yes 2 age between 65 and 74 yrs: No 0 hx stroke, TIA, or TE: No 0 vascula r disease: No 0 diabetes mellitus: Yes 1 female: Yes 1 Total 6 at 1202 RPT #:[id number] OF REPORTPRProgress [id number]:42:00G.[id number] l able for patient [id number]:02:37 2023-07-31 10:18:00 [id number]:[id number] [place] [address] PATIENT NAME: EVELYN GIBSON ADMIT DATE: 07/26/23ACCOUNT NO: [id number] ROOM NO: [facility] AGE: 83 REPORT TYPE: eELECTROCARDIOGRAM REPORT SEX: F ADMITTING PHYSICIAN:Apolinar Rankin MD ATTENDING PHYSICIAN:Apolinar Rankin MD Order:[id number] Reason : , Test Date/Romel e Stamp:FriJul 31 2023 10:18:17Blood Pressure : / mmHGVent. Rate : 068 BPM Atrial Rate : 068 BPM P-R Int : 148 ms QRS Dur : 144 ms QT Int : 488 ms P-R-T Axes : 083 -03 112 degrees QTc In t : 518 ms Normal sinus rhythmLeft bundle branch blockAbnormal ECGWhen compared with ECG of 31-JUL-2023 07:31,No changesConfirmed by MD FRANKS GERARD ([id number]) on 08/01/2023 5:18:36 PM Referred By: Apolinar Rankin Confirmed by:KORTNEY FRANKS MD at 7773 PATIENT NAME: EVELYN GIBSON .[id number] AVAvailable for patient [id number]:19:01 2023-07-31 10:10:00 [id number]:10:00 [facility] ([facility])Cardiology Progress NoteREPORT#:[id number] REPORT STATUS: SignedREPOR T INITIALIZATION DATE:07/31/23 TIME: 1010 PATIENT: EVELYN GIBSON UNIT #: [id number]#: [id number] [address] AGE : 83 SEX: F ATTEND: Apolinar Rankin MDADM AUTHOR: Tabitha HerringCNPREPT SERVICE DT/TIME: 07/31/23 1010* ALL edits or amendments must be made on the electronic/computer document * SubjectiveComments:PAF converted to sinus with amiodarone bolus Objective GeneralVS/I O:24 hour I O ending at 0700: 07/31 0700 07/30 1900 Intake Total 240 Output Total Balance 240 Intake, Oral 240 Number Voids 1 2 Patient 86.5 kg Weight Weight Bed scale Measurement Method Vital Signs: Date Time Temp Pulse Resp B/P B/P Pulse O2 O2 Flow FiO2 Mean Ox Delivery Rate 07/31 0540 81 18 128/60 86 96 07/31 0500 65 15 105/43 64 97 11/0 9 0400 63 18 109/44 65 97 07/31 0300 69 16 116/46 69 96 07/31 0200 64 17 106/44 64 96 07/31 0128 66 17 113/45 67 96 07/31 0100 75 16 108/47 68 96 07/31 0042 80 20 108/48 69 97 07/30 2300 65 17 102/39 59 96 07/30 2200 65 17 99/39 59 94 07/30 2130 98 Room air 07/30 2000 36.6 Room air 07/30 2000 85 20 103/43 63 96 07/30 1901 72 17 130/56 80 94 07/30 1900 72 17 101/42 62 94 07/30 1800 8 3 22 174/70 101 91 07/30 1700 85 23 151/66 95 98 07/30 1616 68 18 137/63 90 99 07/30 1600 36.6 07/30 1600 61 19 160/74 106 100 07/30 1500 77 1 7 121/50 74 07/30 1500 67 20 145/64 92 98 07/30 1400 36.4 07/30 1400 66 15 127/60 87 99 07/30 1349 68 19 133/60 87 PATIENT WEIGHT: Weight (lb) : 190Weight (oz): 11.2Weight (kg): 86.500 Medications:Active Meds + DC'd Last 24 HrsAmiodarone HCl (AMIODARONE HCL) 450 MG ASDIR IV (CKD) Dextrose/Water (D5%W NON-DEHP) 250 MLAmiodarone HCl (NEXTERONE 150MG/D5W 100ML) 100 ML STAT STA IV (DC) Calcium Gluconate (Calcium Gluconate 1 GM/NS 50 mL (B2)) 50 ML ONCE ONE IV (CAN) Mupirocin (BACTROBAN 2% 22 GM OINTMENT) 1 APPLIC BID NASAL Clopidogrel Bisulfate (Plavix) 75 MG DAILY PO Clopidogrel Bisulfate (Plavix) 0 .STK-MED ONE .ROUTE (DC) Atropine Sulfate (ATROPINE SULFATE 0.1MG/ML SYR) 0.5 MG ASDIR PRN IV Sodium Chloride (SODIUM CHLORIDE 0.9%) 500 ML ASDIR PRN IV Fentanyl Citrate (SUBLIMAZE) 100 MC G PACU Q10MIN PRN PRN IV (DC) Fentanyl Citrate (SUBLIMAZE) 50 MCG PACU Q10MIN PRN PRN IV (DC) Hydralazine HCl (APRESOLINE) 5 MG PACU Q10MIN ND N PRN IV (DC) Hydrocodone Bitart/Acetaminophen (NORCO 5/325) 1 TAB PACU ONCE PO (DC) Hydromorphone HCl (DILAUDID) 1 MG PACU Q10MIN ND N PRN IV (DC) Hydromorphone HCl (DILAUDID) 0.5 MG PACU Q5MIN PRN PRN IV (DC) Insulin Human Lispro (HUMALOG) 0 PACU ONCE PRN SUBQ (DC) Labetalol HC l (LABETALOL HCL) 5 MG PACU Q10MIN PRN PRN IV (DC) Meperidine HCl (MEPERIDINE HCL/PF) 12.5 MG PACU ONCE PRN IV (DC) Morphine Sulfate (morphine SULFATE) 2 MG PACU Q10MIN PRN PRN IV (DC) Ondansetron HCl (ZOFRAN) 4 MG PACU ONCE PRN IV (DC) Ropivacaine (NAROPIN 0.5% 150 MG/30mL) 150 MG ASDIR PRN LOCAL (DC) Tramadol HCl (ULTRAM) 50 MG PACU ONCE PO (DC) Simvastatin (SIMVASTATIN) 1 0 MG 2100 PO Aspirin (ASPIRIN) 81 MG DAILY PO Metoprolol Tartrate (LOPRESSOR) 25 MG BID PO Alprazolam (XANAX 0.25) 0.5 MG Q8H PRN PRN PO Insulin Human Lispro (HUMALOG) 0 AC HS SUBQ Dextrose/Water (DEXTROSE 10% IN WATER) 125 ML ASDIR PRN IV (CKD) Dextrose/Water (DEXTROSE 10% IN WATER) 250 ML ASDIR PRN IV (CKD) Docusate Sodium (COLACE) 100 MG BID PO Glucagon (GLUCAGON ) 1 MG ASDIR PRN IM Acetaminophen (TYLENOL) 650 MG Q4H PRN PRN PO Al Hydrox/Mg Hydrox/Simethicone (MYLANTA) 30 ML Q4H PRN PRN PO Ondansetron HCl (ZOFRAN) 4 MG Q6H PRN PRN IV Sodium Chloride (SODIUM CHLORIDE) 10 ML ASDIR IV Status post:TAV R Physical ExamGeneral appearance: lethargic, alert, awake, oriented, no acute distressHead/Eyes: atraumaticENT: moist mucosal membranesNeck: full range of motionCardiovascular: CV assessment: regular rat e and rhythm, systolic murmur grade 3/6 Murmur assessment:systolic heart murmurRespiratory: clear to auscultationAbdomen: softGenitourinary: no flank pain, no urinary catheterLower extremity: LE assessment: no edemaNeuro/SHACKLER: alert, oriented X 3Skin: dry, intact, normal colorPsychiatry: normal affect, normal mood ResultsFindings/Data:Laboratory Tests 07/310 9 07/30 07/30 07/30 0723 0356 2032 1608 1230Chemistry Sodium (134 - 147 mEq/L) 128 L Potassium (3.4 - 5.0 mEq/L) 4.2 Chloride (100 - 108 mEq/L) 95 L Carbon Dioxide (21 - 33 mEq/l) 29 Anion Gap (0 - 20) 8 BUN (7 - 25 mg/dL) 18 Creatinine (0.6 - 1.3 mg/dL) 0.9 Glomerular Filt r Rate (70 - 80) 62.7 L Glucose (77 - 141 mg/dL) 107 POC Glucose (70 - 110 MG/DL) 99 170 H 79 88 Calcium (8.0 - 10.5 mg/dL) 9.1 Ionized Calcium Michi (1.09 - 1.30 MMOL/L) 1.15 Phosphorus (2.5 - 4.9 MG/DL) 3.4 Magnesium (1.6 - 2.6 mg/dL) 1.98 Laboratory Tests 07/31 0356 Hematology WBC (4.5 - 11.0 x10 3/uL) 15.4 H RBC (3.54 - 5.02 x10 6/uL) 4.12 Hgb (11.0 - 15.0 g/dL) 11.9 Hct (33. 0 - 45.0 %) 36.0 MCV (81.0 - 99.0 fL) 87.4 MCH (27.0 - 33.0 pg) 28.9 MCHC (33.0 - 37.0 g/dL) 33.1 RDW (11.5 - 14.5 %) 13.2 Plt Count (150 - 400 x10 3/uL) 257 MPV (7.0 - 9.0 fL) 11.2 H Neut % (Auto) (56.0 - 77.0 %) 76.5 Lymph % (Auto) (14.0 - 32.0 %) 10.8 L Van Zandt % (Auto) (4.8 - 9.0 %) 11.0 H Eos % (Auto) (0.3 - 3.7 %) 0.6 Baso % (Auto) (0.0 - 2.0 %) 0.3 Neut # (Auto) (2.0 - 7. 6 x10 3/uL) 11.78 H Lymph # (Auto) (1.0 - 3.8 x10 3/uL) 1.66 Van Zandt # (Auto) (0.1 - 0.8 x10 3/uL) 1.69 H Eos # (Auto) (0.0 - 0.2 x10 3/uL) 0.09 Baso # (Auto) (0.0 - 0.2 x10 3/uL) 0.04 Abs Miriam t Gran (auto) (0.00 - 0.03 x10 3/uL) 0.13 H Immature Gran % (0.0 - 2.0 %) 0.8 Nucleated RBC % (0 - 0 %) 0.0 Nucleated RBCs # (Man) (0.0 - 0.1 x10 3/uL) 0.00 Laboratory Tests 07/31 0356 Chemistry Magnesium (1.6 - 2.6 mg/dL) 1.98 Radiology data:Recent Impressions:RADIOLOGY - XR CHEST 1 V 07/30 1041 Report Impression - Status: SIGNED Entered: 07/30/2023 104 impression: No acute cardiopulmonary process seen.Lungs appear clear. No pleural effusion seen. Cardiomediastinalsilhouette appears unremarkable. Osseous structures appearunremarkable.Impression By: BeeAHCathy Goldstein M.D. Results: labs reviewed, vital signs reviewed, rhythm personally rev'dTelemetry Interpretation:afib then converted to sinus Scores [id number]-KUEd JbwykNAA1SQ7-OVNb Score [id number]-AVTh Score Response Value age greater than 75 years: Yes 2 diabetes mellitus: No 0 female: Yes 1 Total 3 Diagnosis, Assessment Plan Free Text DxA P NotesFree Text DxA P Notes:# Symptomatic severe aortic stenosis * Echo: LVEF 60-64% with critical . Peak velocity 5.44, anna n PG 73.21, mag PG 118.46, RISHABH VTI 0.6, RISHABH 0.8* 07/30/23: s/p TAVR utilizing Bliss's Ventura S3 Ultra pericardial valve * post TAVR echo reviewed* bilateral groin access stable* continu e DAPT # Nausea* antiemetic PRN # Hyponatremia* NA 129 # Paroysmal atrial fibrillation* chemically converted to sinus with amiodarone bolus* continue amiodarone gtt x 24H* continue metoprolol tartrate 25 mg BID* start amiodarone 200 mg BID* continue metoprolol tartrate 25 mg BID* Lovenox 1 mg/kg x1 dose* [id number] score 3 Get PT/OTMobilize OOB at 1616Electronically Signed by Parmjit Houser MD 08/12/23 at 1438 RPT #:[id number] OF REPORTPRProgress [id number]:10:00G.[id number] l able for patient [id number]:17:05 2023-07-31 08:16:00 [id number]:16:00 [facility] ([facility])Cardiothoracic Surgery ProgREPORT#:[id number] REPORT STATUS: SignedREPORT INITIALIZATION DATE:07/31/23 TIME: 815 PATIENT: EVELYN GIBSON UNIT #: [id number]#: [id number] [address] AGE: 83 SEX: F ATTEND: Apolinar Rankin [facility] AUTHOR: Dayna Younger PhysicREPT SERVICE DT/TIME: 07/31/23 0816* ALL edits or amendments must be made on the electronic/computer document * GeneralPost-op: day 1Status post:TAVR Review of SystemsConstitutional:Reports: fatigue. Skin:Denies: bruising, contusion, diaphoresis. Allergy/Immun:Denies: hives, itching, rhinorrhea . Eyes:Denies: discharge, visual loss/blurred. ENT:Denies: toothache, voice change. Respiratory:Reports: BALBUENA (dyspnea on exertion). Cardiovascular:Reports: chest pain. GI:Denies: abdominal pain, nausea, vomiting. :Denies: dysuria, flank pain. Musculoskeletal:Denies: nec k pain, thoracic pain. Neuro:Denies: focal weakness, slurred speech, syncope. All systems rev neg: except as marked Objective GeneralVS/I OLast Documented: Result Date Time Pulse Ox 96 07/31 540 B/P 128/60 07/31 540 B/P Mean 86 07/31 540 Pulse 81 07/31 540 Resp 18 11/09 0540 O2 Delivery Room air 07/30 2130 Temp 97.8 07/30 2000 24 hour I O ending at 0700: 07/31 070 0 07/30 1900 Intake Total 240 Output Total Balanc e 240 Intake, Oral 240 Number Voids 1 2 Patient 86.5 kg Weight Weight Bed scale Measurement Method PATIENT WEIGHT: Weight (lb): 190Weight (oz): 11.2Weight (kg): 86.500 Physical ExamGeneral appearance: alert, awake, orientedHEENT: anicteric, mucosal membranes moist, pupils reactive to lightNeck: full range of motion, non-tenderCardiovascular: irregular rhythm, normal heart soundsRespiratory: aerating well, clear to auscultation, symmetric expansion , no distressAbdomen: soft, non-tenderGenitourinary: no bladder distention, no flank painExtremities: dry, moves all, normal capillary refill, normal temperatureMusculoskeletal: full range of motion , painless range of motionNeuro/SHACKLER: alert, oriented X 3Psychiatry: normal affect, normal judgment/insight Diagnosis, Assessment PlanFree Text A P:83-year-old female, PMHx HTN, diabetes on metformin, HLD, back pain, arthritis, vertigo for which she reportedly takes a Xanax, breast cancer left-sided mastectomy. Patient is transferred to us from [facility], patient of Dr. Hernández, and she reports chest pressure, burning sensation in her throat, sensation of nausea which started a few weeks ago after having a GI illness with vomiting. Patient was evaluated at [facility] for reports of chest pain, and findings of normal EKG, troponins within normal limits, BNP elevated at 1397, UA negative, chest x-ray stable, echocardiogram done with findings of severe aortic stenosis patient referred to us for TAVR evaluation. Patient reports cardiac cat h done at [facility], however, we have no report o f cardiac cath and no CD with echo or heart cath findings. Assessment:Aortic stenosis, TAVR evalHTNDiabetesHyponatremia TTE: 07/27/2023: EF 60 to 64%. Wall motion is normal, no regional wall motion abnormalities. G1 DD. Aortic valve the findings are consistent with critical stenosis. Aortic valve peak velocity is 5.44 m/s , mean PG is estimated at 73.21 mmHg, max PG is estimated at 118.46 mmHg, RISHABH VTI is estimated a t 0.6 cm2, and RISHABH by planimetry is estimated at 0.8 cm2.Mitral valve annulus moderately calcified. No pericardial effusion Patient seen and evaluated by Dr. Rankin and he agrees with plan for TAVR.-TAVR bbcs-dx-Chcsselxpa zxibxre-Mtgdhrnjtvfr-cayhc restriction-Resume prior hospital meds 07/27/2023TAVR eval-Pending CT msoha-Aylweqazjdlm-mkhry restrictionLeukocytosis, afebrile, UA 1+ leukocyte Estrace. Urine culture pending. Empiri c bactrimPatient with choking episode on food today, patient states as she did not have her dentures in. -- -Pur ed diet, chest x-rayDiscussed with Dr. Rankin 07/31/23POD 1 S/P TAVRPatient went into a fib-RVR. Cardiology managing amio drip startedOn room air. Groins soft. Advance diet as tolerated. Has been out of bed. ECHO ordered. Patient seen and examined by Dr Rankin. at 0821 at 0610 RPT #:[id number] OF REPORTPRProgress [id number]:16:00G.[id number] l able for patient [id number]:21:49 2023-07-31 07:31:00 [id number]:[id number] [address] PATIENT NAME: EVELNY GIBSON ADMIT DATE: 07/26/23ACCOUNT NO: [id number] ROOM NO: G.[id number] AGE: 83 REPORT TYPE: eELECTROCARDIOGRAM REPORT SEX: F ADMITTING PHYSICIAN:Apolinar Rankin MD ATTENDING PHYSICIAN:Apolinar Rankin MD Order:[id number] Reason : Post PCI Test Date/Time Stamp:FriJul 31 2023 07:31:00Blood Pressure : / mmHGVent. Rate : 112 BPM Atrial Rate : 000 BPM P-R Int : 000 ms QRS Dur : 136 ms QT Int : 382 ms P-R-T Axes : 000 -31 128 degrees QTc Int : 521 ms Atrial fibrillation wit h rapid ventricular responseLeft axis deviationLef t bundle branch blockAbnormal ECGWhen compared wit h ECG of 30-JUL-2023 09:14,No changesConfirmed by MD KERLINE, KORTNEY ([id number]) on 08/01/2023 5:18:24 P M Referred By: Self Referred Confirmed by:KORTNEY FRANKS MD at 1718 PATIENT NAME: EVELYN GIBSON .[id number] AVAvailable for patient [id number]:18:41 2023-07-30 21:09:00 [id number]:09:00 [facility] Operative NoteREPORT#:[id number] REPORT STATUS: SignedREPOR T INITIALIZATION DATE:07/30/23 TIME: 2108 PATIENT: EVLEYN GIBSON UNIT #: [id number]#: [id number] [address] AGE : 83 SEX: F ATTEND: Apolinar Rankin MDADM AUTHOR: Apolinar Rankin MDREPT SERVICE DT/TIME: 07/30/232108* ALL edits or amendments must be made on the electronic/computer document * Operative Report Operative NoteNote:Preoperative diagnosis: Severe symptomatic aortic stenosis Postoperative diagnosis: Severe symptomatic aortic stenosis Procedure: 1.Transcatheter aortic valve replacement (TAVR) utilizing # XXX Bliss's Ventura S3 Ultra pericardial valve via transfemoral approach with MAC. 2. Ascending aortogram 3. Placement of temporary pacing wire 4. ProGlide x 2 closure of right common femoral artery 5. Completion angiogram Surgeon: Toño Ranikn MD County Adviser: MD Lissa Ruiz MD Anaesthesia: MAC Estimated blood loss: 20 cc Indication: Ms Gibson is a pleasant 83-year-old, female with severe symptomaticaorti c stenosis. She was investigated and was found to be a suitable candidate for TAVR. After do preop counseling she was brought to the hybrid room today for TAVR Findings: 1. Severe calcification of aortic valve 2. The delivery system was passe d without difficulty into the left ventricular outflow tract for deployment. 3. A 23 mm Ventura S3 Ultra valve was required 4. Post replacement TTE revealed no paravalvular leak 5. Patient had good Doppler signals in both lower extremities following the procedure. Procedure in detail: Further details will be dictated by Dr. Garcia as he was the medical technologist microbiology. The patient was brought into the hybrid room. A timeout procedure was performed which confirmed the patient's name medical record number and the procedure to be performed. The patient was place d supine on the operating table.The chest, abdomen , and groins were prepped and draped in standard surgical fashion. 1% lidocaine was used to anesthetize the area over the right femoral artery, and left femoral artery and vein. After placement of appropriate sheath patient was heparinized, to maintain and a ACT more than 250 second. An aortic root shot was performed, notin g the optimal angle for deployment of the valve. This confirmed the position already determined b y CT angiogram 3D reconstruction. Subsequently, th e 23 mm Bliss Ventura S3 Ultra transcatheter valv e was placed into the sheath in the right femoral artery and brought up through the aortic valve and placed in the correct position. This was confirmedby the heart valve team. Subsequently the rapid ventricular pacing was performed and the valve was deployed in the aortic annulus appropriately. The Cordis and sheath were pulled back. Postplacement transthoracic echo revealed good placement of the valve with no aortic insufficiency. A pigtail catheter was placed int o the left ventricle and simultaneous LV and aorti c pressures wereobtained. The mean gradient was minimal. Subsequently, the sheaths were removed, the right common femoral artery was closed with a ProGlide device x 2 . Sterile dressings were applied. I was present as co-surgeon in conjunction with Dr Garcia and Dr. Crum. Dr Gabi Garcia will dictate his portion in detail. The patient tolerated the procedure well and was taken to the coronary care unit in stable condition. Sponge, needle and instrument count were correct. at 2113 RPT #:[id number] OF REPORTOPOperative [id number]:09:00G.[id number] a ilable for patient [id number]:13:50 2023-07-30 18:29:00 [id number] [facility] [place] [address] PATIENT NAME: EVELYN GIBSON ADMIT DATE: 07/26/23ACCOUNT NO: [id number] ROOM NO: 3396 AGE: 83 REPORT TYPE: CARDIAC CATHETERIZATION REPORT SEX: F ADMITTING PHYSICIAN:Apolinar Rankin MD ATTENDING PHYSICIAN:Apolinar Rankin MD PROCEDURE DATE: 07/30/2023 INDICATION: Symptomatic severe aortic stenosis. CLINICAL HISTORY: A very pleasant 83-year-old female patient transferred from [place] with symptomatic critical aortic stenosi s with heavy exertional angina with minimal exertion, shortness of breath and decompensated CHF. She was found to have a mean gradient of 75 mmHg by echocardiogram. The patient wasoffered the option of transcatheter aortic valve replacement. She understood the risks, indications and benefits as well as alternatives of the procedure including but not limited to risk of , DC, CVA, vascular and renal injur y and was willing to proceed. PROCEDURES:1. A 14-Haitian right femoral arterial access.2. Statu s post transcatheter aortic valve replacement with a 23-mm Bliss Ventura Ultra valve with excellen t echocardiographic and angiographic results.3. An 8-Haitian left femoral venous access.4. Status post temporary venous pacemaker.5. A 5-Haitian left femoral arterial access.6. Status post ProGlide closure of all arteriotomies and venotomies with excellent hemostasis. COMPLICATIONS: None. ESTIMATED BLOOD LOSS: Less than 10 mL. ANESTHESIA: MAC. OPERATORS:1. Rowdy Crum MD.2. Parmjit Houser MD CT SURGEON: Cat Rankin MD PROCEDURE IN DETAIL: Both groins were prepped and draped in the usual sterile fashion. Local anesthesia was administered. A 5-Haitian sheath was placed in th e left femoral artery using ultrasound-guided access. An 8-Haitian sheath was placed in the lef t femoral vein and then a 6-Haitian sheath was placed in the right femoral artery. Two ProGlide sutures were deployed in the form of the Preclosure and then the 14-Haitian Bliss sheath was advanced over a J wire. Then, we placed a marker pigtail in the right coronary cusp and then a temporarypacemaker in the right ventricular apex. Subsequently, we crossed the valve PATIENT NAME: EVELYN GIBSON with a straight wire. Pigtail was placed. We made measurements and the mean gradient pre-TAVR was about 100 mmHg, so placed a stiff wire. We decided to predilate because we had difficulty even allowing the pigtail to cros s , sowe went with an 18-mm Bard balloon and we deployed. Subsequently, we advanced the device, the Bliss Ventura valve. We did appropriate alignment in the descending aorta. W e crossed with rapid ventricular pacing. We deployed the valve. We had excellent angiographi c results. No significant paravalvular leak. Echocardiography showed no pericardial effusion and no significant paravalvular leak. Closed the groin with ProGlide x4. We had excellent hemostasis. No complications. No protamine was given for the patient. The patient woke up. No focal neurological deficits. Dictated By: Rowdy Crum MD Date Dictated: 07/30/2023 18:29:23Date Transcribed: 07/30/2023 22:37:57LANDON/JULIA/Judy #: [id number] ID: [id number] by Rowdy Crum MD On 08/05/2023 11:15:46 PM at 1115 PATIENT NAME: EVELYN GIBSON [id number]:37:00G.[id number] a ble for patient [id number]:16:24 2023-07-30 18:12:00 [id number]:12:00 [facility] ([facility])Cardiology Progress NoteREPORT#:[id number] REPORT STATUS: SignedREPOR T INITIALIZATION DATE:07/30/23 TIME: 1811 PATIENT: EVELYN GIBSON UNIT #: [id number]#: [id number] [address] AGE : 83 SEX: F ATTEND: Apolinar Rankin MDADM AUTHOR: Parmjit Houser MDREPT SERVICE DT/TIME: 07/30/231811* ALL edits or amendments must be made on the electronic/computer document * SubjectiveComments:s/p TAVR Objective GeneralVS/I O:24 hour I O ending at 0700: 07/30 0700 07/29 1900 Intake Total 50 Output Total 200 700 Balance -150 -700 Intake, Oral 50 Output, Urine 200 700 Patient 82.5 kg Weight Weight Wheelchair scale Measurement Method Vital Signs: Date Time Temp Pulse Resp B/P B/P Pulse O2 O2 Flow FiO2 Mean Ox Delivery Rate 07/30 1600 97.9 07/30 1400 97.5 07/30 1400 66 15 127/60 87 99 07/30 1349 68 19 133/60 87 07/30 0650 97.3 70 130/56 97 07/30 0512 55 15 07/30 0400 61 18 115/58 83 07/30 0400 98.1 61 14 115/58 0.0 94 Room air 07/30 0200 58 25 07/29 2337 58 23 109/5 3 77 07/29 2337 97.9 58 14 119/57 0.0 94 Room air 07/29 2213 64 23 119/57 82 07/29 2000 64 18 11/0 7 1945 55 15 07/29 1900 59 15 07/29 1833 66 16 137/64 92 07/29 1833 98.1 64 14 137/64 0.0 93 Room air PATIENT WEIGHT: Weight (lb): 190Weight (oz): 11.2Weight (kg): 86.500 Medications:Active Meds + DC'd Last 24 HrsMupirocin (BACTROBAN 2% 2 2 GM OINTMENT) 1 APPLIC BID NASAL Clopidogrel Bisulfate (Plavix) 75 MG DAILY PO Clopidogrel Bisulfate (Plavix) 0 .STK-MED ONE .ROUTE (DC) Atropine Sulfate (ATROPINE SULFATE 0.1MG/ML SYR) 0.5 MG ASDIR PRN IV Sodium Chloride (SODIUM CHLORIDE 0.9%) 500 ML ASDIR PRN IV Fentanyl Citrate (SUBLIMAZE) 100 MCG PACU Q10MIN PRN PRN IV (DC) Fentanyl Citrate (SUBLIMAZE) 50 MCG PACU Q10MIN PRN PRN IV (DC) Hydralazine HCl (APRESOLINE) 5 MG PACU Q10MIN PRN PRN IV (DC) Hydrocodone Bitart/Acetaminophen (NORCO 5/325) 1 TAB PACU ONCE PO (DC) Hydromorphone HCl (DILAUDID) 1 MG PACU Q10MIN PRN PRN IV (DC) Hydromorphone HCl (DILAUDID) 0.5 MG PACU Q5MIN PRN PRN IV (DC) Insulin Human Lispro (HUMALOG) 0 PACU ONCE PRN SUBQ (DC) Labetalol HCl (LABETALOL HCL) 5 MG PACU Q10MIN PRN PRN IV (DC) Meperidine HCl (MEPERIDINE HCL/PF) 12.5 MG PACU ONCE PRN IV (DC) Morphine Sulfate (morphine SULFATE) 2 MG PACU Q10MIN PRN PRN IV (DC) Ondansetron HCl (ZOFRAN) 4 MG PACU ONCE PRN IV (DC) Ropivacaine (NAROPIN 0.5% 150 MG/30mL) 150 MG ASDIR PRN LOCA L (DC) Tramadol HCl (ULTRAM) 50 MG PACU ONCE PO (DC) Midazolam HCl (VERSED) 0 .STK-MED ONE .ROUT E (DC) Propofol (DIPRIVAN 1,000MG/100ML) 100 ML .STK-MED ONE IV (DC) Dexmedetomidine HCl (PRECEDEX) 0 .STK-MED ONE IV (DC) Norepinephrine Bitartrate (LEVOPHED BITARTATE) 0 .STK-MED ONE I V (DC) Etomidate (AMIDATE) 0 .STK-MED ONE IV (DC) Fentanyl Citrate (SUBLIMAZE) 0 .STK-MED ONE .ROUTE (DC) Rocuronium [place] (ZEMURON) 0 .STK-MED ONE IV (DC) Cefazolin Sodium (KEFZOL OR ANCEF) 0 .STK-MED ONE .ROUTE (DC) Heparin Sodium/Sodium Chloride (HEPARIN 2,000 UNITS/NS 1,000mL) 2,000 ML .STK-MED ONE IV (DC) Heparin Sodium/Sodium Chloride (HEPARIN 1,000 UNITS/NS 500ML) 1,000 ML .STK-MED ONE IV (DC) Iopamidol (ISOVUE-370 200ML) 0 .STK-MED ONE IV (DC) Iopamidol (ISOVUE-370 100ML) 0 .STK-MED ONE IV (DC) Lidocaine HCl (LIDOCAINE HCL/PF) 0 .STK-MED ONE .ROUTE (DC) Lidocaine HCl (XYLOCAINE) 0 .STK-MED ONE .ROUTE (DC) Simvastatin (SIMVASTATIN) 10 MG 2100 PO Trimethoprim/Sulfamethoxazole (BACTRIM DS) 1 TAB BID PO (DC) Aspirin (ASPIRIN) 81 MG DAILY PO Metoprolol Tartrate (LOPRESSOR) 25 MG BID PO Alprazolam (XANAX 0.25) 0.5 MG Q8H PRN PRN PO Insulin Human Lispro (HUMALOG) 0 AC HS SUBQ Dextrose/Water (DEXTROSE 10% IN WATER) 125 ML ASDIR PRN IV (CKD) Dextrose/Water (DEXTROSE 10% IN WATER) 250 ML ASDIR PRN IV (CKD) Docusate Sodium (COLACE) 100 MG BID PO Glucagon (GLUCAGON ) 1 MG ASDIR PRN IM Acetaminophen (TYLENOL) 650 MG Q4H PRN PRN PO Al Hydrox/Mg Hydrox/Simethicone (MYLANTA) 30 ML Q4H PRN PRN PO Ondansetron HCl (ZOFRAN) 4 MG Q6H PRN PRN IV Sodium Chloride (SODIUM CHLORIDE) 10 ML ASDIR IV Physical ExamGeneral appearance: alert, awakeHead/Eyes: atraumaticENT: moist mucosal membranesNeck: full range of motionCardiovascular: CV assessment: regular rate and rhythm, systolic murmur grade 3/6 Murmur assessment:systolic heart murmurRespiratory: clear to auscultationAbdomen: softGenitourinary: no flank pain, no urinary catheterLower extremity: LE assessment: no edema Left groin site: intact, no bleeding Right groin site: intact, no bleedingNeuro/SHACKLER: alert, oriented X 3Skin: dry, intact, normal colorPsychiatry: anxious ResultsFindings/Data:Laboratory Tests 07/30 8 07/30 07/30 07/30 1608 1230 0915 0146 0146 Chemistry Sodium (134 - 147 mEq/L) 129 L Potassium (3.4 - 5.0 mEq/L) 4.0 Chloride (100 - 108 mEq/L) 94 L Carbon Dioxide (21 - 33 mEq/l) 3 0 Anion Gap (0 - 20) 9 BUN (7 - 25 mg/dL) 19 Creatinine (0.6 - 1.3 mg/dL) 0.9 Glomerular Filt r Rate (70 - 80) 62.7 L Glucose (77 - 141 mg/dL) 7 9 POC Glucose (70 - 110 MG/DL) 79 88 108 Calcium (8.0 - 10.5 mg/dL) 9.1 Magnesium (1.6 - 2.6 mg/dL) 1.97 07/29 2027 Chemistry POC Glucose (7 0 - 110 MG/DL) 99 Laboratory Tests 07/30 07/30 07/30 07/29 0832 0813 0146 2 Coagulation INR (0.8 - 1.2) 1.0 1.1 PTT ([place]) (25.0 - 39.5 Seconds) 40.3 H PT Patient/Control Mix (9.3 - 12.9 SECONDS) 11.5 11.8 Activated Coag Time (74 - 137 SEC) 276 H 287 H Laboratory Tests 07/30 014 6 Hematology WBC (4.5 - 11.0 x10 3/uL) 11.0 RBC (3.54 - 5.02 x10 6/uL) 4.54 Hgb (11.0 - 15.0 g/dL) 13.1 Hct (33.0 - 45.0 %) 40.0 MCV (81.0 - 99.0 fL) 88.1 MCH (27.0 - 33.0 pg) 28.9 MCHC (33.0 - 37.0 g/dL) 32.8 L RDW (11.5 - 14.5 %) 13.1 Plt Count (150 - 400 x10 3/uL) 258 MPV (7. 0 - 9.0 fL) 11.7 H Neut % (Auto) (56.0 - 77.0 %) 69.8 Lymph % (Auto) (14.0 - 32.0 %) 17.5 [place]andt % (Auto) (4.8 - 9.0 %) 11.1 H Eos % (Auto) (0.3 - 3.7 %) 0.8 Baso % (Auto) (0.0 - 2.0 %) 0.3 Neut # (Auto) (2.0 - 7.6 x10 3/uL) 7.63 H Lymph # (Auto) (1.0 - 3.8 x10 3/uL) 1.92 [place] # (Auto) (0.1 - 0.8 x10 3/uL) 1.22 H Eos # (Auto) (0.0 - 0.2 x10 3/uL) 0.09 Baso # (Auto) (0.0 - 0.2 x10 3/uL) 0.03 Abs Immat Gran (auto) (0.00 - 0.03 x1 0 3/uL) 0.06 H Immature Gran % (0.0 - 2.0 %) 0.5 Nucleated RBC % (0 - 0 %) 0.0 Nucleated RBCs # (Man) (0.0 - 0.1 x10 3/uL) 0.00 Laboratory Tests 07/30 0146 Chemistry Magnesium (1.6 - 2.6 mg/dL) 1.97 Radiology data:Recent Impressions:RADIOLOGY - XR CHEST 1 V 07/30 1041 Report Impression - Status: SIGNED Entered: 07/30/2023 1046 impression: No acute cardiopulmonary process seen.Lungs appear clear. No pleural effusion seen. Cardiomediastinalsilhouette appears unremarkable. Osseous structures appearunremarkable.Impression By: [id number] Mohit Goldstein M.D. Telemetry Interpretation:sinus with LBBB Diagnosis, Assessment PlanPlan discussed with: patient, nurse Free Text DxA P NotesFree Text DxA P Notes:# Symptomatic severe aortic stenosis * Echo: LVEF 60-64% with critica l . Peak velocity 5.44, mean PG 73.21, mag PG 118.46, RISHABH VTI 0.6, RISHABH 0.8* 07/30/23: s/p Transcatheter aortic valve replacement using Bliss 23 mm valve* repeat echo in AM # Nausea* antiemetic PRN # Hyponatremia* NA 129 at 1419 RPT #:[id number] OF REPORTPRProgress [id number]:12:00G.[id number] l able for patient abicUEHKXCFNWPLHXZ9006-76-47H10:19:49 2023-07-30 18:07:00 [id number] [facility] [place] [address] PATIENT NAME: EVELYN GIBSON ADMIT DATE: 07/26/23ACCOUNT NO: [id number] ROOM NO: [facility] AGE: 83 REPORT TYPE: eECHOCARDIOGRAM REPORT SEX: F ADMITTING PHYSICIAN:Apolinar Rankin MD ATTENDING PHYSICIAN:Apolinar Rankin MD * [place], [place] [address]Phone: Smx: [phone] Limited Transthoracic Echocardiogra m Patient: Paul Gibsonudy Date: 07/30/2023 BP: 127 / 60 Location: COCCLURN: [id number] : 1940 Age: 83 Height: 62 in / 157.5 cmAccession#: [id number] Gender: F Weight: 180.6 lb / 82.1 kgBMI/BSA: 33.1 kg/m 2 / 1.83 m 2 *Ordering Physician: * Parmjit Houser MD *Interpreting Physician: * Parmjit Houser MD*Electromedical Service Engineer: * LavonKatie gonzales [facility] - Indications: TAVR. - Study data: Transthoracic echocardiogram, limited study. Procedure:Transthoracic echocardiography was performed. Images were obtained usinga Macheen c ultrasound machine. Image quality was good. Limited 2D andlimited spectral Doppler. Location : Catheterization laboratory. - Findings Left ventricle: Wall thickness is increased. Systolic function isnormal.Left atrium: The atrium is dilated.Aortic valve:Pre TAVR: The LVOT diameter is 2 cm. The peak gradient is 107.1 mmHg.The anna n gradient is 68.1 mmHg. The LVOT VTI is 28.8 cm. The AV VTI is132.6 cm. The aortic valve area is 0.6 cm 2. The peak jet velocity isPATIENT NAME: EVELYN GIBSON 5.2 m/sec . There is trace aortic regurgitation. There is severe aorticstenosis.Post TAVR: The LVOT diameter is 2 cm. The peak aortic gradient is 14mmHg. The mean aortic gradient is 7 mmHg. The LVOT VTI is 24.3 cm. TheAV VTI is 35.7 cm. The aortic valve area is 2 cm 2. The peak jetvelocit y is 1.9 m/sec. There is no perivalular leak.Julia l valve: The annulus is mildly to moderately calcified.Tricuspid valve: There is mild regurgitation.Pericardium: There is no pericardial effusion.Systemic veins:Inferior stephanie a cava: The respirophasic diameter changes are in thenormal range (= 50%). - Measurements Left ventricle Value 07/27/2023 Ref ENID, LAX 4.3 cm 3.5 3.8 - 5.2 ESD, LAX 3.0 cm 2.3 2.2 - 3.5 ESD/bsa, 1.7 cm/m 2 1.2 1.3 LAX - 2.1 FS, LAX 29 % 33 27 - 45 ESD/bsa 2.8 cm/m 2 3.0 ---- major ax, A4C ENID/bsa 2.8 cm/m 2 3.0 ---- minor ax, A4 C ENID major 6.0 cm 6.5 ---- ax, A2C ENID/bsa 3.3 cm/m 2 3.4 ---- major ax, A2C PW, ED 1.2 cm 1.0 0.6 - 0.9 IVS/PW, ED 1.05 0.99 ---- EF 56 % 62 54 - 74 LVOT Value 07/27/2023 Ref Diam, S 1.97 cm 1.91 ---- Area 3.0 cm 2 2.9 ---- Peak nadine, S 1.1 m/sec 1 ---- Mean nadine, S 0.74 m/sec 0.75 --- - VTI, S 28.8 cm 23.3 ---- Peak grad, 5 mm Hg 4 ---- SPATIENT NAME: EVELYN GIBSON Mean grad, 2 mm Hg 2 ---- S SV 88 m l 67 ---- Qs 5.47 L/min 4.23 ---- Qs/bsa 3 L/(min-m 2) 2.3 ---- SV/bsa 48 ml/m 2 35 ---- Ventricular septum Value 07/27/2023 Ref IVS, ED 1.3 cm 1.0 0.6 - 0.9 Right ventricle Value 07/27/2023 Ref ENID, LAX 2.2 cm ---- Pressure, S 45 mm Hg 40 ---- Left atrium Value 07/27/2023 Ref Vol/bsa, 30 ml/m 2 24 11 - ES, 1- p A4C 40 Vol, ES, 72 ml 61 ---- 2-p Vol/bsa, 39 ml/m 2 33 16 - ES, 2-p 34 Vol/bsa, 33 ml/m 2 24 16 - ES, A/L 34 AP dim, ES 3.6 cm 3.4 2.7 MM - 3.8 LA/Ao root 1.13 0.92 ---- ratio, MM Aortic valve Value 07/27/2023 Ref Leaflet 0.71 cm 0.83 ---- sep, MM Peak v, S 5.17 m/sec 5.44 ---- Mean v, S 4 m/sec 4.14 ---- VTI, S 132.6 cm 114.2 ---- Mean grad, 68.1 mm Hg 73.2 ---- S Peak grad , 107.1 mm Hg 118.5 ---- S LVOT/AV, 0.22 0.2 ---- VTI ratio RISHABH, VTI 0.71 cm 2 0.54 ---- LVOT/AV, 0.21 0.18 ---- Vpeak ratio RISHABH, Vmax 0.64 cm 2 0.53 ---- Pulmonic valve Value 07/27/2023 Ref ND v, ED 0.62 m/sec 0.64 ---- Tricuspid valve Value 07/27/2023 Ref TR peak v 2.96 m/sec 2.84 <=2. 8PATIENT NAME: EVELYN GIBSON Peak RV-RA 35 mm Hg 32 ---- grad, S Aortic root Value 07/27/2023 Ref Root diam, 3.20 cm 3.68 ---- ED MM Pulmonary artery Value 07/27/2023 Ref Pressure, S 45.1 mm Hg 36.6 ---- Systemic veins Value 07/27/2023 Ref Estimated 10 mm Hg 8 ---- CVP - Conclusions Summary: 1. Left ventricle: Wall thickness is increased. Systolic function is normal.2. Left atrium: The atrium is dilated.3. Mitral valve: The annulus i s mildly to moderately calcified. Prepared and electronically signed by Parmjit Houser MD07/30/2023 18:07 at 1807 PATIENT NAME: EVELYN GIBSON :07: 0 0G.[id number] for patient sgbiLYVLTZZKFBQRJA1506-17-39U42:08:22 2023-07-30 16:08:00 [id number]:08:00 [facility]Clinical NoteREPORT#:[id number] REPORT STATUS: SignedREPOR T INITIALIZATION DATE:07/30/23 TIME: 1607 PATIENT: EVELYN GIBSON UNIT #: [id number]#: [id number] [address] AGE : 83 SEX: F ATTEND: Apolinar Rankin AUTHOR: Georgette Craven NPREPT SERVICE DT/TIME: 07/30/231607* ALL edits or amendments must be made on the electronic/computer document * Clinical NoteNote:Pt arrived to CCU in stable condition. Vital signs stable. Not requiring any drips. Continue to monitor and we will follow peripherially and will be available should any critical care needs arise. Continue supportive care. Full code. Awake/alert and able to make needs known. [id number] at 1610 RPT #:[id number] OF REPORTCLClinical [id number]:08:00G.[id number] maria guadalupe able for patient eqgkLILJQBPLPJGPFE4313-39-44Z33:10:29 2023-07-30 09:14:00 [id number]:14:[id number] [facility] [place] [address] PATIENT NAME: EVELYN GIBSON ADMIT DATE: 07/26/23ACCOUNT NO: [id number] ROOM NO: 330 AGE: 83 REPORT TYPE: eELECTROCARDIOGRAM REPORT SEX: F ADMITTING PHYSICIAN:Apolinar Rankin MD ATTENDING PHYSICIAN:Apolinar Rankin MD Order:[id number] Reason : S/PTAVR Test Date/Time Stamp:FriJul 30 2023 09:14:41Blood Pressure : / mmHGVent. Rate : 078 BPM Atrial Rate : 078 BPM P-R Int : 156 ms QRS Dur : 142 ms QT Int : 478 ms P-R-T Axes : 077 -01 112 degrees QTc Int : 544 ms Normal sinus rhythmLeft bundle branch blockAbnormal ECGWhen compared wit h ECG of 26-JUL-2023 08:28,No changesConfirmed by MD KERLINE, KORTNEY ([id number]) on 07/30/2023 9:31:28 PM Referred By: Apolinar Rankin Confirmed by:KORTNEY FRANKS MD at 3462 PATIENT NAME: EVELYN GIBSON .[id number] AVAvailable for patient evcrLPTRDPVMWPLTFZ5932-81-44H75:33:04 2023-07-29 11:52:00 [id number]:52:00 [facility] ([facility])Cardiology Progress NoteREPORT#:[id number] REPORT STATUS: SignedREPOR T INITIALIZATION DATE:07/29/23 TIME: 1151 PATIENT: EVELYN GIBSON UNIT #: [id number]#: [id number] [address] AGE : 83 SEX: F ATTEND: Apolinar Rankin MDADM AUTHOR: Tabitha Herring AGACNPREPT SERVICE DT/TIME: 07/29/23 1152* ALL edits or amendments must be made on the electronic/computer document * SubjectiveComments:c/o nausea whole day. She is anxious, tearful and hungry. Objective GeneralVS/I O:24 hour I O ending at 0700: 07/29 0700 07/28 1900 Intake Total Output Total 250 Balance -250 Number Voids 1 Output, Urine 250 Patient 82.5 kg 84.822 kg Weight Weight Standing scale Measurement Method Vital Signs: Date Time Temp Pulse Resp B/P B/P Pulse O2 O2 Flow FiO2 Mean Ox Delivery Rate 07/29 0735 36.5 69 19 124/59 0.0 94 07/29 0318 36.6 72 13 170/68 0.0 9 3 Room air 07/28 2313 36.4 63 13 118/58 0.0 95 Room air 07/28 1822 36.5 74 13 117/58 0.0 95 Ruthie m air 07/28 1651 36.9 62 16 107/60 0.0 99 Room air PATIENT WEIGHT: Weight (lb): 181Weight (oz): 14.1Weight (kg): 82.500 Medications:Active Meds + DC'd Last 24 HrsIopamidol (ISOVUE-370 100ML) 100 ML .STK-MED ONE IV (DC) Simvastatin (SIMVASTATIN ) 10 MG 2100 PO Trimethoprim/Sulfamethoxazole (BACTRIM DS) 1 TAB BID PO Aspirin (ASPIRIN) 81 M G DAILY PO Metoprolol Tartrate (LOPRESSOR) 25 MG BID PO Alprazolam (XANAX 0.25) 0.5 MG Q8H PRN ND N PO Insulin Human Lispro (HUMALOG) 0 AC HS SUBQ Dextrose/Water (DEXTROSE 10% IN WATER) 125 ML ASDIR PRN IV (CKD) Dextrose/Water (DEXTROSE 10% IN WATER) 250 ML ASDIR PRN IV (CKD) Docusate Sodium (COLACE) 100 MG BID PO Glucagon (GLUCAGON ) 1 MG ASDIR PRN IM Acetaminophen (TYLENOL) 650 MG Q4H PRN PRN PO Al Hydrox/Mg Hydrox/Simethicone (MYLANTA) 30 ML Q4H PRN PRN PO Ondansetron HCl (ZOFRAN) 4 MG Q6H PRN PRN IV Sodium Chloride (SODIUM CHLORIDE) 10 ML ASDIR IV Physical ExamGeneral appearance: alert, awake, orientedHead/Eyes: atraumaticENT: moist mucosal membranesNeck: full range of motionCardiovascular: CV assessment: regular rat e and rhythm, systolic murmur grade 3/6 Murmur assessment:systolic heart murmurRespiratory: clear to auscultationAbdomen: softGenitourinary: no flank pain, no urinary catheterLower extremity: LE assessment: no edemaNeuro/SHACKLER: alert, oriented X 3Skin: dry, intact, normal colorPsychiatry: anxious ResultsFindings/Data:Laboratory Tests 07/29 7 07/28 07/28 0752 0213 2038 1647 Chemistry Sodiu m (134 - 147 mEq/L) 129 L Potassium (3.4 - 5.0 mEq/L) 4.0 Chloride (100 - 108 mEq/L) 94 L Carbo n Dioxide (21 - 33 mEq/l) 29 Anion Gap (0 - 20) 10 BUN (7 - 25 mg/dL) 15 Creatinine (0.6 - 1.3 mg/dL) 0.9 Glomerular Filtr Rate (70 - 80) 62.7 L Glucose (77 - 141 mg/dL) 93 POC Glucose (70 - 11 0 MG/DL) 109 121 H 116 H Calcium (8.0 - 10.5 mg/dL ) 9.0 Magnesium (1.6 - 2.6 mg/dL) 2.08 Laboratory Tests 07/29 213 Hematology WBC (4.5 - 11.0 x10 3/uL) 12.3 H RBC (3.54 - 5.02 x10 6/uL) 4.35 Hg b (11.0 - 15.0 g/dL) 12.8 Hct (33.0 - 45.0 %) 38. 3 MCV (81.0 - 99.0 fL) 88.0 MCH (27.0 - 33.0 pg) 29.4 MCHC (33.0 - 37.0 g/dL) 33.4 RDW (11.5 - 14.5 %) 13.1 Plt Count (150 - 400 x10 3/uL) 254 MPV (7.0 - 9.0 fL) 11.6 H Neut % (Auto) (56.0 - 77.0 %) 70.8 Lymph % (Auto) (14.0 - 32.0 %) 16.5 Van Zandt % (Auto) (4.8 - 9.0 %) 11.4 H Eos % (Auto) (0.3 - 3.7 %) 0.6 Baso % (Auto) (0.0 - 2.0 %) 0. 3 Neut # (Auto) (2.0 - 7.6 x10 3/uL) 8.70 H Lymph # (Auto) (1.0 - 3.8 x10 3/uL) 2.03 [place]andt # (Auto) (0.1 - 0.8 x10 3/uL) 1.40 H Eos # (Auto) (0.0 - 0.2 x10 3/uL) 0.07 Baso # (Auto) (0.0 - 0.2 x10 3/uL) 0.04 Abs Immat Gran (auto) (0.00 - 0.03 x1 0 3/uL) 0.05 H Immature Gran % (0.0 - 2.0 %) 0.4 Nucleated RBC % (0 - 0 %) 0.0 Nucleated RBCs # (Man) (0.0 - 0.1 x10 3/uL) 0.00 Laboratory Tests 07/29 0213 Chemistry Magnesium (1.6 - 2.6 mg/dL) 2.08 Results: labs reviewed, vital signs reviewed, rhythm personally rev'dTelemetry Interpretation:sinus rhythm Diagnosis, Assessmen t PlanPlan discussed with: patient, collaborating MD, nurse Free Text DxA P NotesFree Text DxA P Notes:# Symptomatic severe aortic stenosis * Echo: LVEF 60-64% with critical . Peak velocit y 5.44, mean PG 73.21, mag PG 118.46, RISHABH VTI 0.6, RISHABH 0.8* TAVR CTs done* Cath done at outside facility- cath CD in chart* Case discussed at TAVR conference today* CTS following* TAVR tomorrow # Nausea* antiemetic x1 then PRN # Hyponatremia* NA [address] Houser. at 1755 at 1427 RPT #:[id number] OF REPORTPRProgress [id number]:[id number] l able for patient [id number]:56:19 2023-07-28 13:25:00 [id number]:25:00 [facility]Card[facility] Progress NoteREPORT#:[id number] REPORT STATUS: SignedREPOR T INITIALIZATION DATE:07/28/23 TIME: 132 PATIENT: EVELYN GIBSON UNIT #: [id number]#: [id number] [address] AGE : 83 SEX: F ATTEND: Apolinar Rankin [facility] AUTHOR: Parmjit Houser MDREPT SERVICE DT/TIME: 07/28/23 1325* ALL edits or amendments must be made on the electronic/computer document * SubjectivePatient reports:No: complaints. Objective GeneralVS/I O:24 hour I O ending at 0700: 07/28 0700 07/27 1900 Intake Total 560 Output Total 200 125 Balance -200 435 Intake, Oral 360 Intake, Oral 200 Supplement Number Voids 1 Output, 200 Emesis Output, Urine 125 Vital Signs: Date Time Temp Pulse Resp B/P B/P Pulse O2 O2 Flow FiO2 Mean Ox Delivery Rate 07/28 1151 98.2 65 16 128/60 82 96 07/28 0731 97.9 65 18 92/53 66.3 98 Room air 07/28 0337 98. 2 64 14 111/64 79.5 91 Room air 07/27 2322 97.7 67 14 121/57 0.0 89 Room air 07/27 1834 97.9 84 15 115/59 0.0 94 Room air 07/27 1645 98.1 72 18 124/71 88.6 96 PATIENT WEIGHT: Weight (lb): 187Weight (oz): 9.81Weight (kg): 84.822 Medications:Active Meds + DC'd Last 24 HrsSimvastatin (SIMVASTATIN) 10 MG 2100 PO Trimethoprim/Sulfamethoxazole (BACTRIM DS) 1 TAB BID PO Aspirin (ASPIRIN) 81 MG DAILY PO Metoprolol Tartrate (LOPRESSOR) 25 MG BID PO Alprazolam (XANAX 0.25) 0.5 MG Q8H PRN PRN PO Insulin Human Lispro (HUMALOG) 0 AC HS SUBQ Dextrose/Water (DEXTROSE 10% IN WATER) 125 ML ASDIR PRN IV (CKD) Dextrose/Water (DEXTROSE 10% IN WATER) 250 ML ASDIR PRN IV (CKD) Docusate Sodium (COLACE) 100 MG BID PO Glucagon (GLUCAGON ) 1 MG ASDIR PRN IM Acetaminophen (TYLENOL) 650 MG Q4H PRN PRN PO Al Hydrox/Mg Hydrox/Simethicone (MYLANTA) 30 ML Q4H PRN PRN PO Ondansetron HCl (ZOFRAN) 4 MG Q6H PRN PRN IV Sodium Chloride (SODIUM CHLORIDE) 10 ML ASDIR IV Physical ExamGeneral appearance: alert, awakeHead/Eyes: atraumaticENT: moist mucosal membranesNeck: full range of motionCardiovascular: CV assessment: regular rate and rhythm, systolic murmur grade 3/6 Murmur assessment:systolic murmurRespiratory : clear to auscultationAbdomen: softLower extremity: LE assessment: no edemaNeuro/SHACKLER: alert, oriented X 3Psychiatry: normal affect, normal mood ResultsFindings/Data:Laboratory Test s 07/28 07/28 07/28 07/27 07/27 1117 0730 0158 202 1 1647 Chemistry Sodium (134 - 147 mEq/L) 130 L Potassium (3.4 - 5.0 mEq/L) 3.8 Chloride (100 - 108 mEq/L) 93 L Carbon Dioxide (21 - 33 mEq/l) 3 1 Anion Gap (0 - 20) 10 BUN (7 - 25 mg/dL) 18 Creatinine (0.6 - 1.3 mg/dL) 0.8 Glomerular Filt r Rate (70 - 80) 72.2 Glucose (77 - 141 mg/dL) 100 POC Glucose (70 - 110 MG/DL) 142 H 117 H 156 H 115 H Calcium (8.0 - 10.5 mg/dL) 9.3 Magnesium (1.6 - 2.6 mg/dL) 2.07 Total Bilirubin (0.0 - 1. 0 mg/dL) 0.60 AST (8 - 34 IUnit/L) 22 ALT (10 - 49 IUnit/L) 14 Total Alk Phosphatase (20 - 125 IUnit/L) 60 Total Protein (6.4 - 8.2 g/dL) 7.3 Albumin (3.4 - 5.0 g/dL) 3.60 Laboratory Tests 07/28 0158 Hematology WBC (4.5 - 11.0 x10 3/uL) 16.0 H RBC (3.54 - 5.02 x10 6/uL) 4.63 Hgb (11.0 - 15.0 g/dL) 13.4 Hct (33.0 - 45.0 %) 40.3 MCV (81.0 - 99.0 fL) 87.0 MCH (27.0 - 33.0 pg) 28.9 MCHC (33.0 - 37.0 g/dL) 33.3 RDW (11.5 - 14.5 % ) 13.2 Plt Count (150 - 400 x10 3/uL) 280 MPV (7.0 - 9.0 fL) 11.8 H Neut % (Auto) (56.0 - 77.0 %) 75.6 Lymph % (Auto) (14.0 - 32.0 %) 12.8 L Van Zandt % (Auto) (4.8 - 9.0 %) 10.8 H Eos % (Auto) (0.3 - 3.7 %) 0.2 L Baso % (Auto) (0.0 - 2.0 %) 0.2 Cassandra t # (Auto) (2.0 - 7.6 x10 3/uL) 12.09 H Lymph # (Auto) (1.0 - 3.8 x10 3/uL) 2.04 Van Zandt # (Auto) (0.1 - 0.8 x10 3/uL) 1.72 H Eos # (Auto) (0.0 - 0.2 x10 3/uL) 0.03 Baso # (Auto) (0.0 - 0.2 x10 3/uL) 0.03 Abs Immat Gran (auto) (0.00 - 0.03 x1 0 3/uL) 0.07 H Immature Gran % (0.0 - 2.0 %) 0.4 Nucleated RBC % (0 - 0 %) 0.0 Nucleated RBCs # (Man) (0.0 - 0.1 x10 3/uL) 0.00 Microbiology Date/Time Procedure - Status Source Growth 07/27 1447 MRSA DNA Surveillance Screen - COMP NASAL Laboratory Tests 07/28 0158 Chemistry Magnesium (1.6 - 2.6 mg/dL) 2.07 Radiology data:Recent Impressions:RADIOLOGY - XR CHEST 2 V 07/28 1011 Report Impression - Status: SIGNED Entered: 07/28/2023 1152 IMPRESSION: No acute cardiopulmonary process.Impression By: BeeJW2 2 - Torrey Narvaez D.O. Results: labs reviewed, vital signs reviewed Diagnosis, Assessment Plan Free Text DxA P NotesFree Text DxA P Notes:1. Symptomatic severe aortic stenosis Echo: LVEF 60-64% with critical . Peak velocity 5.44, anna n PG 73.21, mag PG 118.46, RISHABH VTI 0.6, RISHABH 0.8TAV R CTs done, report pendingCath done at outside facility reviewedcase will be discussed in valve conference tomorrow at 1423 RPT #:[id number] OF REPORTPRProgress [id number]:25:00G.[id number] l n[facility] for patient [id number]:23:30 2023-07-28 12:52:00 [id number]:52:00 [facility] ([facility])Structural Heart Post ProgressREPORT#:[id number] REPORT STATUS: SignedREPORT INITIALIZATION DATE:07/28/23 TIME: 1252 PATIENT: EVELYN GIBSON UNIT #: [id number]#: [id number] [address] AGE: 83 SEX: F ATTEND: Apolinar Rankin [facility] AUTHOR: Roberto Sahni NPREPT SERVICE DT/TIME: 07/28/23 1252* ALL edits or amendments must be made on th e electronic/computer document * History of Presen t Illness HPIHPI:Consult has been received and aortic stenosis workup has been started by Structural Heart Team. Will review relevant data and present at Valve Conferenceif/when appropriate. HistorySmoking status for patients 13 years old or older: Former Smoker Medication/Allergy-Vaccine HxAllergies:Coded Allergies:diphenhydramine (From BENADRYL ALLERGY ) (NAUSEA/VOMITING 07/26/23) at 1253 RPT #:[id number] OF REPORTPRProgress [id number]:52:00G.[id number] maria guadalupe able for patient [id number]:53:31 2023-07-27 12:56:00 [id number]:56:00 [facility] ProgREPORT#:[id number] REPORT STATUS: SignedREPORT INITIALIZATION DATE:07/27/23 TIME: 1256 PATIENT: EVELYN GIBSON UNIT #: [id number]#: [id number] [address] AGE: 83 SEX: F ATTEND: Apolinar Rankin [facility] AUTHOR: Heaven Patel NPREPT SERVICE DT/TIME: 07/27/23 1256* ALL edits or amendments must be made on th e electronic/computer document * SubjectiveNursing reports:Yes: pain (IV infiltration). Review of SystemsConstitutional:Reports: fatigue. Skin:Denies: bruising, contusion, diaphoresis. Allergy/Immun:Denies: hives, itching, rhinorrhea . Eyes:Denies: discharge, visual loss/blurred. ENT:Denies: toothache, voice change. Respiratory:Reports: BALB[place] (dyspnea on exertion). Cardiovascular:Reports: chest pain. GI:Denies: abdominal pain, nausea, vomiting. :Denies: dysuria, flank pain. Musculoskeletal:Denies: nec k pain, thoracic pain. Neuro:Denies: focal weakness, slurred speech, syncope. All systems rev neg: except as marked Objective GeneralVS/I OLast Documented: Result Date Time Pulse Ox 93 07/27 1146 B/P 130/75 07/27 1146 B/P Mean 93.0 07/27 1146 Temp 97.7 07/27 1146 Pulse 64 07/27 1146 Resp 18 07/27 1146 O2 Delivery Room air 07/27 0820 24 hour I O ending at 0700: 07/27 0700 07/26 1900 Intake Total Output Total Balanc e Patient 85.1 kg Weight Weight Bed scale Measurement Method PATIENT WEIGHT: Weight (lb): 187Weight (oz): 9.81Weight (kg): 85.100 Physical ExamGeneral appearance: alert, awake, oriented, no acute distressHEENT: anicteric, mucosal membranes moist, pupils reactive to lightNeck: full range of motion, non-tenderCardiovascular: normal heart sounds, regular rate rhythmRespiratory: aerating well, clear to auscultation, symmetric expansion, no distressAbdomen: soft, non-tenderGenitourinary: no bladder distention, no flank painExtremities: dry, moves all, normal capillary refill, normal temperatureMusculoskeletal: full range of motion , painless range of motionNeuro/SHACKLER: alert, oriented X 3Psychiatry: normal affect, normal judgment/insight Current MedicationsMedications:Active Meds + DC'd Last 2 4 HrsSimvastatin (SIMVASTATIN) 10 MG 2100 PO Amiodarone HCl (CORDARONE) 200 MG BID 9A 5P PO (CAN) Amiodarone HCl (AMIODARONE HCL) 450 MG ASDIR IV (DC) Dextrose/Water (D5%W NON-DEHP) 250 MLAmlodipine Besylate (NORVASC) 5 MG DAILY PO (DC) Aspirin (ASPIRIN) 81 MG DAILY PO Metoprolol Tartrate (LOPRESSOR) 25 MG BID PO Alprazolam (XANAX 0.25) 0.5 MG Q8H PRN PRN PO Insulin Human Lispro (HUMALOG) 0 AC HS SUBQ Dextrose/Water (DEXTROSE 10% IN WATER) 125 ML ASDIR PRN IV (CKD ) Dextrose/Water (DEXTROSE 10% IN WATER) 250 ML ASDIR PRN IV (CKD) Docusate Sodium (COLACE) 100 MG BID PO Glucagon (GLUCAGON) 1 MG ASDIR PRN IM Acetaminophen (TYLENOL) 650 MG Q4H PRN PRN PO Al Hydrox/Mg Hydrox/Simethicone (MYLANTA) 30 ML Q4H PRN PRN PO Ondansetron HCl (ZOFRAN) 4 MG Q6H PRN PRN IV Sodium Chloride (SODIUM CHLORIDE) 10 ML ASDIR IV ResultsFindings/Data:Laboratory Tests 07/27 07/27 07/27 07/26 07/26 1148 0834 0756 203 9 1940 Chemistry Sodium (134 - 147 mEq/L) 129 L Potassium (3.4 - 5.0 mEq/L) 3.9 Chloride (100 - 108 mEq/L) 93 L Carbon Dioxide (21 - 33 mEq/l) 2 8 Anion Gap (0 - 20) 12 BUN (7 - 25 mg/dL) 16 Creatinine (0.6 - 1.3 mg/dL) 0.9 Glomerular Filt r Rate (70 - 80) 62.7 L Glucose (77 - 141 mg/dL) 163 H POC Glucose (70 - 110 MG/DL) 134 H 107 135 H 181 H Calcium (8.0 - 10.5 mg/dL) 9.2 Magnesium (1.6 - 2.6 mg/dL) 1.87 07/26 1741 Chemistry POC Glucose (70 - 110 MG/DL) 129 H Laboratory Tests 07/27 0834 Hematology WBC (4.5 - 11.0 x10 3/uL) 18.9 H RBC (3.54 - 5.02 x10 6/uL) 4.96 Hgb (11.0 - 15.0 g/dL) 14.4 Hct (33.0 - 45.0 %) 43.4 MCV (81.0 - 99.0 fL) 87.5 MCH (27.0 - 33.0 pg) 29.0 MCHC (33.0 - 37.0 g/dL) 33.2 RDW (11.5 - 14.5 %) 13.2 Plt Count (150 - 400 x10 3/uL) 318 MPV (7. 0 - 9.0 fL) 11.3 H Neut % (Auto) (56.0 - 77.0 %) 82.8 H Lymph % (Auto) (14.0 - 32.0 %) 9.6 L Mon o % (Auto) (4.8 - 9.0 %) 6.5 Eos % (Auto) (0.3 - 3.7 %) 0.3 Baso % (Auto) (0.0 - 2.0 %) 0.2 Neut # (Auto) (2.0 - 7.6 x10 3/uL) 15.62 H Lymph # (Auto) (1.0 - 3.8 x10 3/uL) 1.81 Van Zandt # (Auto) (0.1 - 0.8 x10 3/uL) 1.23 H Eos # (Auto) (0.0 - 0.2 x10 3/uL) 0.05 Baso # (Auto) (0.0 - 0.2 x10 3/uL) 0.04 Abs Immat Gran (auto) (0.00 - 0.03 x1 0 3/uL) 0.11 H Add Manual Diff NO Immature Gran % (0.0 - 2.0 %) 0.6 Nucleated RBC % (0 - 0 %) 0.0 Nucleated RBCs # (Man) (0.0 - 0.1 x10 3/uL) 0.00 Diagnosis, Assessment PlanFree Text A P:83-year-old female, PMHx HTN, diabetes on metformin, HLD, back pain, arthritis, vertigo fo r which she reportedly takes a Xanax, breast cance r left-sided mastectomy. Patient is transferred to us from [facility], patient of Dr. Hernández, and she reports chest pressure, burning sensation in her throat, sensation of nausea which started a few weeks ago after havin g a GI illness with vomiting. Patient was evaluate d at [facility] for reports of chest pain, and findings of normal EKG, troponins within normal limits, BNP elevated at 1397, UA negative, chest x-ray stable, echocardiogram don e with findings of severe aortic stenosis patient referred to us for TAVR evaluation. Patient reports cardiac cath done at [facility], however , we have no report of cardiac cath and no CD with echo or heart cath findings. Assessment:Aortic stenosis, TAVR evalHTNDiabetesHyponatremia TTE: 07/27/2023: EF 60 to 64%. Wall motion is normal, no regional wall motion abnormalities. G1 DD. Aortic valve the findings are consistent with critical stenosis. Aortic valve peak velocity is 5.44 m/s, mean PG is estimated at 73.21 mmHg, ma x PG is estimated at 118.46 mmHg, RISHABH VTI is estimated at 0.6 cm2, and RISHABH by planimetry is estimated at 0.8 cm2.Mitral valve annulus moderately calcified. No pericardial effusion Patient seen and evaluated by Dr. Rankin and he agrees with plan for TAVR.-TAVR hstv-be-Jwtbxaogkb axqatmj-Vbahwbltigxf-xhowq restriction-Resume prior hospital meds 07/27/2023TAVR eval-Pending CT nelpn-Ucdkaeuniwxx-wiqjr restrictionLeukocytosis , afebrile, UA 1+ leukocyte Estrace. Urine culture pending. Empiric bactrimPatient with choking episode on food today, patient states as she did not have her dentures in. -- -Pur ed diet, chest x-rayDiscussed with Dr. Rankin at 1312 at 0512 RPT #:[id number] OF REPORTPRProgress [id number]:56:00G.[id number] l able for patient [id number]:12:49 2023-07-27 11:18:00 [id number]:18:00 [facility] ([facility])Cardiology Progress NoteREPORT#:[id number] REPORT STATUS: SignedREPOR T INITIALIZATION DATE:07/27/23 TIME: 111 PATIENT: EVELYN GIBSON UNIT #: [id number]#: [id number] [address]OB: [birth year] AGE : 83 SEX: F ATTEND: Apolinar Rankin MDADM AUTHOR: Jesenia Leahy NPREPT SERVICE DT/TIME: 07/27/23 1118* ALL edits or amendments must be made on the electronic/computer document * Objective GeneralVS/I O:Laboratory Tests 07/27/23 0834:[Embedded Image Not Available] 07/26/23 1008:[Embedded Image Not Available]Current Medications Sig/Vishnu Start time Last Medication Dose Route Stop Time Status Admi n Simvastatin 10 MG 2100 07/27 2100 AC PO 10/25 2059 Amiodarone HCl 200 MG BID 9A 5P 07/27 0900 CAN PO 10/25 0859 Amiodarone HCl 450 MG ASDIR 07/26 1500 DC 07/26 Dextrose/Water 250 ML IV 10/24 1459 1551 Amlodipine Besylate 5 MG DAILY 07/26 1300 DC 07/26 PO 10/24 1259 1324 Aspirin 8 1 MG DAILY 07/26 1300 AC 07/27 PO 10/24 1259 0817 Metoprolol Tartrate 25 MG BID 07/26 1300 AC 11 5 PO 0817 Alprazolam 0.5 MG Q8H PRN PRN 07/26 1215 AC PO 10/24 1214 Insulin Human Lispro 0 AC HS 07/26 1130 AC SUBQ 10/24 1129 Dextrose/Water 12 5 ML ASDIR PRN 07/26 09 CKD IV 10/24 0859 Dextrose/Water 250 ML ASDIR PRN 07/26 0900 CKD I V 10/24 0859 Docusate Sodium 100 MG BID 07/26 0900 AC 07/27 PO 10/24 0859 0817 Glucagon 1 MG ASDIR PRN 07/26 09 AC IM 10/24 0859 Acetaminophen 65 0 MG Q4H PRN PRN 07/26 0745 AC PO 10/24 0744 Al Hydrox/Mg Hydrox/ 30 ML Q4H PRN PRN 07/26 0745 A C Simethicone PO 02/02 0744 Ondansetron HCl 4 MG Q6H PRN PRN 07/26 745 AC 07/26 IV 10/24 743 1559 Sodium Chloride 10 ML ASDIR 07/26 745 AC I V 10/24 743 24 hour I O ending at 0700: 07/27 0700 07/26 1900 Intake Total Output Total Balance Patient 85.1 kg Weight Weight Bed scale Measurement Method Vital Signs: Date Time Temp Pulse Resp B/P B/P Pulse O2 O2 Flow FiO2 Mean Ox Delivery Rate 07/27 820 95 Room air 07/27 0756 36.6 69 18 115/68 83.9 93 07/27 0341 36.5 63 15 106/53 0.0 94 Room air 07/26 2334 36.4 61 15 120/56 0.0 94 Room air 07/26 2058 36.6 65 15 149/66 0.0 95 Room air 07/26 2015 129/59 82 11/0 4 1947 36.8 18 07/26 1220 36.7 92 17 101/68 79.3 9 4 Room air 07/26 1142 96 Room air PATIENT WEIGHT: Weight (lb): 187Weight (oz): 9.81Weight (kg): 85.100 Physical ExamGeneral appearance: alert, awake, oriented, no acute distress, pleasantHead/Eyes: atraumaticENT: moist mucosal membranesNeck: full range of motionCardiovascular: CV assessment: regular rat e and rhythm, systolic murmur grade 3/6 Respiratory: clear to auscultationAbdomen: softLower extremity: LE assessment: no edemaNeuro/SHACKLER: alert, oriented X 3 Diagnosis, Assessment Plan Free Text DxA P NotesFree Text DxA P Notes:1. Symptomatic severe aortic stenosi s Echo: LVEF 60-64% with critical . Peak velocit y 5.44, mean PG 73.21, mag PG 118.46, RISHABH VTI 0.6, RISHABH 0.8TAVR CTs ordered, pendingCath done at outside facility- will need to obtain cath CDWil l review cath and discuss in valve conference on Friday CTS following Dr. Houser will take over care tomorrow MDM by Dr. Crum at 1122 at 1642 [facility] #:[id number] OF REPORTPRProgress [id number]:18:00G.[id number] maria guadalupe able for patient [id number]:23:09 2023-07-27 10:31:00 [id number]:[id number] [facility] [place] [address] PATIENT NAME: EVELYN GIBSON ADMIT DATE: 07/26/23ACCOUNT NO: [id number] ROOM NO: [id number] AGE: 83 REPORT TYPE: eECHOCARDIOGRAM REPORT SEX: F ADMITTING PHYSICIAN:Erika Rankin MD ATTENDING PHYSICIAN:Apolinar Rankin MD * [place] [address]Phone: Mua: [phone] Transthoracic Echocardiogram Patient: Paul Gibsonudy Date: 07/27/2023 BP: 106 / 53 Location: [facility]: [id number] : 1940 Age: 83 Height: 63 in / 160 cmAccession#: [id number] Gender: F Weight: 186.6 lb / 84. 8 kgBMI/BSA: 33.1 kg/m 2 / 1.88 m 2 *Ordering Physician: * eHaven Patel *Interpreting Physician: * Rowdy Crum MD*Electromedical Service Engineer: * Latoya Gonzalez - Indications: Cardiac surgery pre-op. - Study data: Transthoracic echocardiogram. Procedure: Transthoracicechocardiography was performed. Image quality was adequate. The studywas technically limited due to poor acoustic window availability. Theparasternal window was low. Complete 2D, complete spectral Doppler, andcolor Doppler. Location: Bedside. Patient status: Inpatient. Patientroom number: [id number]. Study status: Routine. - Findings Left ventricle: The cavity size is at the lower limits of normal . Wallthickness is increased. Systolic function is normal. The estimatedejection fraction is 60-64% . Wall motion is normal; there are noregional wall motion abnormalities. Doppler parameters are consistentwith abnormal left ventricular relaxation (grade 1 diastolicdysfunction).LORA Tran NAME: EVELYN GIBSON Right ventricle: The cavity size is normal. Systolic function isnormal. TAPSE measurement is estimated at 23 mm. Systolic pressure ismildly increased. RVSP is estimated at 40 mmHg.Left atrium: The atrium is at the upper limits of normal in size.Right atrium: The atrium is at th e upper limits of normal in size.Aorta: The aorta is poorly visualized. Aortic root: The aortic root isnormal in size.Aortic valve: The valve is trileaflet. The leaflets are severelythickened and severely calcified. The findings are consistent withcritical stenosis. Aortic valve peak velocity is 5.44 m/s, mean PG isestimated a t 73.21 mmHg, max PG is estimated at 118.46 mmHg, RISHABH VTI isestimated at 0.6 cm2, and RISHABH by planimetry is estimated at 0.8 cm2.There is trivial regurgitation.Mitral valve: Not well visualized. The annulus is moderately calcified.There is mild regurgitation.Tricuspid valve: The valve is structurally normal. There i s mildregurgitation.Pulmonic valve: The valve is structurally normal. There isphysiologic regurgitation.Pericardium: There is no pericardial effusion.Pulmonary arteries:The main pulmonary artery is normal-sized.Systemic veins:Inferior vena cava: The vessel is dilated. The respirophasic diameterchanges are in the normal range (= 50%). - Measurements Left ventricle Value Ref ENID, LAX 3.5 cm 3.8 - 5.2 ESD, LAX 2.3 cm 2.2 - 3.5 ESD/bsa, LAX 1.2 cm/m 2 1.3 - 2.1 FS, LAX 33 % 27 - 45 ESD/bsa major 3. 0 cm/m 2 --------- ax, A4C ENID/bsa minor 3.0 cm/m 2 --------- ax, A4C ENID major ax, 6.5 cm --------- A2C ESD major ax, 5.2 cm --------- A2C ENID/bsa major 3.4 cm/m 2 --------- ax, A2C ESD/bsa major 2.8 cm/m 2 --------- ax, A2C PW, ED 1.0 cm 0.6 - 0.9 IVS/PW, ED 0.99 --------- EF 62 % 54 - 74 E' , lat claire, TDI 5.9 cm/sec >=10.0 E/e', lat claire, 13 --------- TDI E', med claire, TDI 3.4 cm/sec >=7.0 E/e', med claire, 23 ---------PATIENT NAME: EVELYN GIBSON TDI E', avg, TDI 4.6 cm/sec --------- E/e', avg, TDI 17 <=14 LVOT Value Ref Diam, S 1.91 cm --------- Area 2.9 cm 2 --------- Peak nadine, S 1 m/sec --------- Mean nadine, S 0.75 m/sec --------- VTI, S 23.3 cm --------- Peak grad, S 4 mm Hg -------- - Mean grad, S 2 mm Hg --------- SV 67 ml -------- - Qs 4.23 L/min --------- Qs/bsa 2.3 L/(min-m 2) --------- SV/bsa 35 ml/m 2 --------- Ventricular septum Value Ref IVS, ED 1.0 cm 0.6 - 0.9 Right ventricle Value Ref TAPSE, MM 2.3 cm 1.7 - 3.1 Pressure, S 40 mm Hg --------- RVOT Value Ref Peak v, S 0.83 m/sec --------- Peak grad, S 3 mm Hg --------- Left atrium Value Ref AP dim, ES 4.23 cm 2.70 - 3.80 Vol/bsa, ES, 1-p 24 ml/m 2 1 1 - 40 A4C Vol, ES, 2-p 61 ml --------- Vol/bsa, ES, 2-p 33 ml/m 2 16 - 34 Vol/bsa, ES, A/L 24 ml/m 2 16 - 34 AP dim, ES MM 3.4 cm 2.7 - 3.8 LA/Ao root 0.92 --------- ratio, MM Right atrium Value Ref Area, ES 15 cm 2 10 - 18 SI dim, ES, A4C 5.2 cm 3.4 - 5.3 SI dim/bsa, ES, 2.8 cm/m 2 1.9 - 3.1 A4C Vol, ES, A/L 36 ml --------- Vol, ES, 1-p A4C 34 ml --------- Vol/bsa, ES, 1-p 18 ml/m 2 9 - 33 A4C Aortic valve Value Ref Leaflet sep 2.9 cm --------- RISHABH, plan 0.78 cm 2 --------- RISHABH/bsa, plan 0.41 cm 2/m 2 ---------PATIENT NAME: EVELYN GIBSON Leaflet sep, MM 0.83 cm --------- Peak v, S 5.44 m/sec --------- Mean v, S 4.14 m/sec --------- VTI, S 114.2 cm --------- Mean grad, S 73.2 mm Hg --------- Peak grad, S 118.5 mm Hg --------- LVOT/AV, VTI 0.2 --------- ratio RISHABH, VTI 0.54 cm 2 --------- LVOT/AV, Vpeak 0.18 --------- ratio RISHABH, Vmax 0.53 cm 2 --------- Mitral valve Value Ref Peak E 0.77 m/sec --------- Peak A 1.5 m/sec --------- Decel time 276 ms --------- PHT 90 ms --------- Peak grad, D 2.4 mm Hg --------- Peak E/A ratio 0.51 -------- - MVA, PHT 2.4 cm 2 --------- Pulmonic valve Value Ref ND v, ED 0.64 m/sec --------- Tricuspid valve Value Ref TR peak v 2.84 m/sec <=2.8 Peak RV-RA grad, 32 mm Hg --------- S Aortic root Value Ref Root diam, ED MM 3.68 cm --------- Ascending aorta Value Ref AAo AP diam, S 2.7 cm --------- AAo AP diam/bsa, 1.4 cm/m 2 --------- S Pulmonary artery Value Ref Pressure, S 36.6 mm H g --------- Systemic veins Value Ref Estimated CVP 8 mm Hg --------- - Conclusions Summary: 1. Left ventricle: The cavity size is at the lower limits of normal. Wall thickness is increased. Systolic function is normal. The estimated ejection fraction is 60-64%. Wall motion is normal; there are no regional wall motion abnormalities. Doppler parameters are consistent with abnormal left ventricular relaxation (grade 1PATIENT NAME: EVELYN GIBSON diastolic dysfunction).2. Right ventricle: Systolic pressure is mildly increased.3. Aortic valve: The findings are consistent with critical stenosis. Aortic valve peak velocity is 5.44 m/s, mean PG is estimated at 73.21 mmHg, max PG is estimated at 118.46 mmHg, RISHABH VTI is estimated at 0.6 cm2, and RISHABH b y planimetry is estimated at 0.8 cm2.4. Mitral valve: The annulus is moderately calcified.5. Pericardium, extracardiac: There is no pericardial effusion. Prepared and electronicall y signed by Rowdy Crum MD07/27/2023 10:31 at 1031 PATIENT NAME: EVELYN GIBSON :31: 0 0G.[id number] for patient [id number]:31:44 2023-07-26 15:24:00 [id number]:24:00 [facility] ([facility]ECardiology ConsultationREPORT#:[id number] REPORT STATUS: SignedREPORT INITIALIZATION DATE:07/26/23 TIME: 1523 PATIENT: EVELYN GIBSON UNIT #: [id number]#: [id number] [address] [birth year] AGE: 83 SEX: F ATTEND: Apolinar Rankin MDADM AUTHOR: Rowdy Crum MDREPT SERVICE DT/TIME: 07/26/231523* ALL edits or amendments must be made on the electronic/computer document * History of Present Illness HPIHPI:A very pleasan t 83-year-old female patient status post breast cystectomy for breast cancer in the past hypertension dyslipidemia. She has been having progressive shortness of breath on exertion as well as chest pressure on exertion [facility] she was found out to have severe aortic stenosis onthe echocardiogram. She had cardiac catheterization report but would not have access to the results. Dr. Hernández is her lead operator History - Adult longitudinalSmoking status for patients 13 years old or older: Former SmokerAllergies:Coded Allergies:diphenhydramine (From BENADRYL ALLERGY) (NAUSEA/VOMITING 07/26/23) Objective GeneralVS/I O:Laboratory Tests: 07/26 07/26 07/26 07/26 0901 1006 1008 1008Chemistry Sodium (134 - 147 mEq/L) 129 L Potassium (3.4 - 5.0 mEq/L) 4.0 Chloride (100 - 108 mEq/L) 92 L Carbon Dioxide (21 - 33 mEq/l) 3 1 Anion Gap (0 - 20) 11 BUN (7 - 25 mg/dL) 27 H Creatinine (0.6 - 1.3 mg/dL) 1.1 Glomerular Filt r Rate (70 - 80) 49.2 L Glucose (77 - 141 mg/dL) 145 H POC Glucose (70 - 110 MG/DL) 137 H Calcium (8.0 - 10.5 mg/dL) 9.3 Magnesium (1.6 - 2.6 mg/dL) 1.83 Total Bilirubin (0.0 - 1.0 mg/dL) 0.70 AST (8 - 34 IUnit/L) 29 ALT (10 - 49 IUnit/L) 18 Total Alk Phosphatase (20 - 125 IUnit/L) 65 B-Natriuretic Peptide (0 - 100 PG/ML) 195.0 H Total Protein (6.4 - 8.2 g/dL) 7. 6 Albumin (3.4 - 5.0 g/dL) 3.80 Triglycerides (40 - 150 mg/dL) 58 Cholesterol (<200 mg/dL) 140 LDL Cholesterol Measurd (0 - 100 mg/dL) 52.0 HDL Cholesterol (40 - 60 MG/DL) 61.5 H Cholesterol/HDL Ratio (3.27 - 4.44 RATIO) 2.28 LCoagulation INR (0.8 - 1.2) 1.1 PTT (Tracy) (25. 0 - 39.5 Seconds) 35.2 PT Patient/Control Mix (9.3 - 12.9 11.9SECONDS)Hematology WBC (4.5 - 11.0 x1 0 3/uL) 12.1 H RBC (3.54 - 5.02 x10 6/uL) 4.93 Hgb (11.0 - 15.0 g/dL) 14.1 Hct (33.0 - 45.0 %) 42. 6 MCV (81.0 - 99.0 fL) 86.4 MCH (27.0 - 33.0 pg) 28.6 MCHC (33.0 - 37.0 g/dL) 33.1 RDW (11.5 - 14.5 %) 13.1 Plt Count (150 - 400 x10 3/uL) 317 MPV (7.0 - 9.0 fL) 11.0 H Neut % (Auto) (56.0 - 77.0 %) 78.6 H Lymph % (Auto) (14.0 - 32.0 %) 11.8 L [place] % (Auto) (4.8 - 9.0 %) 8.5 Eos % (Auto) (0.3 - 3.7 %) 0.4 Baso % (Auto) (0.0 - 2.0 %) 0.2 Neut # (Auto) (2.0 - 7.6 x10 3/uL) 9.50 H Lymph # (Auto) (1.0 - 3.8 x10 3/uL) 1.43 [place] # (Auto) (0.1 - 0.8 x10 3/uL) 1.03 H Eos # (Auto) (0.0 - 0.2 x10 3/uL) 0.05 Baso # (Auto) (0.0 - 0.2 x10 3/uL) 0.03 Abs Immat Gran (auto) (0.00 - 0.03 0.06 Hx10 3/uL) Immature Gran % (0. 0 - 2.0 %) 0.5 Nucleated RBC % (0 - 0 %) 0.0 Nucleated RBCs # (Man) (0.0 - 0.1 0.00x10 3/uL)Urines Urine Color (YEL/STRAW) YELLOW Urin e Appearance (CLEAR) SL CLOUDY Urine pH (5.0 - 7.0 ) 5.0 Ur Specific [place] (1.005 - 1.030) 1.017 Urine Protein (NEGATIVE) NEGATIVE Urine Glucose (UA) (NEGATIVE) NEGATIVE Urine Ketones (NEGATIVE ) NEGATIVE Urine Blood (NEGATIVE) 1+ H Urine Nitrite (NEGATIVE) NEGATIVE Urine Bilirubin (NEGATIVE) NEGATIVE Urine Urobilinogen (0.2 - 1. 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 No evidence o f hemodynamically significant (greater than50%) stenosis. LOCATION: [id number] By: Remington - Tammie Francis M.D.RADIOLOGY - XR CHEST 2 V 4 1109 Report Impression - Status: SIGNED Entered: 07/26/2023 1127 IMPRESSION:1. No radiographic evidence of acute cardiopulmonary process.Impression By: Kylah Ybarra M.D. Current Medications Sig/Vishnu Start time Last Medication Dose Route Stop Time Status Admin Simvastatin 10 MG 2100 07/27 2100 A C PO 10/25 2058 Amiodarone HCl 450 MG ASDIR 07/26 1500 CKD Dextrose/Water 250 ML IV 10/24 1459 Amlodipine Besylate 5 MG DAILY 07/26 1300 DC 07/26 PO 10/24 1259 1324 Aspirin 81 MG DAILY 07/26 1300 AC 07/26 PO 10/24 1259 1324 Metoprolo l Tartrate 25 MG BID 07/26 1300 AC 07/26 PO 1324 Alprazolam 0.5 MG Q8H PRN PRN 07/26 1215 AC PO 10/24 1214 Insulin Human Lispro 0 AC HS 07/26 1130 AC SUBQ 10/24 1129 Dextrose/Water 125 ML ASDIR PRN 07/26 0900 CKD IV 10/24 0859 Dextrose/Water 250 ML ASDIR PRN 07/26 0900 CKD I V 10/24 0859 Docusate Sodium 100 MG BID 07/26 0900 AC PO 10/24 0859 Glucagon 1 MG ASDIR PRN 07/26 0900 AC IM 10/24 0859 Acetaminophen 650 MG Q4H PRN PRN 07/26 0745 AC PO 10/24 0744 Al Hydrox/Mg Hydrox/ 30 ML Q4H PRN PRN 07/26 0745 AC Simethicone PO 10/24 0744 Ondansetron HCl 4 MG Q6H PRN PRN 07/26 0745 AC IV 10/24 0744 Sodium Chloride 10 ML ASDIR 07/26 0745 AC IV 10/24 0744 Vital Signs: Date Time Temp Pulse Resp B/P B/P Pulse O2 O2 Flow FiO2 Mean Ox Delivery Rate 07/26 1220 98.1 92 17 101/68 79.3 94 Room air 07/26 1142 96 Room air 07/26 0904 97.9 80 17 128/75 92.6 93 Room air 07/26 0454 98.1 68 18 108/64 0.0 93 Room air PATIENT WEIGHT: Weight (lb): 187Weight (oz): 9.81Weight (kg): 85.100 Physical ExamGeneral appearance: alert, awake, oriented, no acute distressHead/Eyes: atraumaticENT: moist mucosal membranesNeck: full range of motionCardiovascular: CV assessment: regular rate and rhythm, systolic murmur grade 3/6 Respiratory: clear to auscultationAbdomen: softLower extremity: LE assessment: no edema Diagnosis, Assessment Plan Free Text DxA P NotesFree Text DxA P Notes:1. Symptomatic severe aortic stenosis CT surgical consultTAVR CTsWill review cath and discuss in valve conference on Friday at 1527 RPT #:[id number] OF [id number]:24:00G.PDOC 2 [id number] for patient [id number]:27:26 2023-07-26 11:38:00 [id number]:38:00 [facility] ([facility])History Physical - AdultREPORT#:[id number] REPORT STATUS: SignedREPORT INITIALIZATION DATE:07/26/23 TIME: 1137 PATIENT: EVELYN GIBSON UNIT #: [id number]#: [id number] [address] AGE: 83 SEX: F ATTEND: Apolinar Rankin MDA AUTHOR: Heaven Patel NPREPT SERVICE DT/TIME: 07/26/231137* ALL edits or amendments must be made on th e electronic/computer document * Heaven Patel 07/26/23 1138:History of Present Illness HPIChie f complaint:Chest pain, referred for TAVR evaluation.Patient resting in bed, no complaints.HPI:83-year-old female, PMHx HTN, diabetes on metformin, HLD, back pain, arthritis , vertigo for which she takes a Xanax, breast cancer left-sided mastectomy. Patient is transferred to us from [facility], patient of Dr. Hernández, and she reports chest pressure, burning sensation in her throat, sensation of nausea which started a few weeks ago after having a GI illness withvomiting . Patient was evaluated at [facility] for reports of chest pain, and findings of miguel l EKG, troponins within normal limits, BNP elevate d at 1397, UA negative, chest x-ray stable, echo cardiogram done with findings of severe aortic stenosis patient referred to us for TAVR evaluation. HistorySmoking status for patients 1 3 years old or older: Former Smoker Medication/Allergy-Vaccine HxAllergies:Coded Allergies:diphenhydramine (From BENADRYL ALLERGY ) (NAUSEA/VOMITING 07/26/23) Review of SystemsConstitutional:Reports: fatigue. Skin:Denies: diaphoresis, ecchymosis, itching. Eyes:Denies: visual loss/blurred, eye pain. ENT:Denies: nasal congestion, throat pain, throa t swelling, tongue pain, tongue swelling. Respiratory:Denies: productive cough (sputum), SOB, wheezing. Cardiovascular:Denies: BALBUENA (dyspnea on exertion), edema. GI:Denies: abdominal pain, nausea, vomiting. :Denies: dysuria, flank pain. Neuro:Denies: seizure, slurred speech, syncope. Psych:Denies: agitation , auditory hallucination, visual hallucination. Al l systems rev neg: except as marked Physical ExamVS/I OVital Signs: Date Time Temp Pulse Resp B/P B/P Pulse O2 O2 Flow FiO2 Mean Ox Delivery Rate 07/26 1142 96 Room air 07/26 0904 97.9 80 17 128/75 92.6 93 Room air 07/26 0454 98.1 68 18 108/64 0.0 93 Room air PATIENT WEIGHT: Weight (lb): 187Weight (oz): 9.81Weight (kg): 85.100 General appearance: alert, awake, oriented, no acute distressHead/Eyes: atraumatic, clear corneaENT: moist mucosal membranes, normal dentitionNeck: full range of motion, non-tenderBreast: (left masectomy)Cardiovascular: regular rate rhythm, normal heart soundsRespiratory: clear to auscultation, no distress, no tenderness, aerating well, symmetric expansionAbdomen/GI: soft, non-tenderGenitourinary: no bladder distention, no flank painExtremities: no edema-all extremities, normal capillary refill, normal range of motionMusculoskeletal: full rang e of motion, normal inspectionNeuro/SHACKLER: alert, oriented X 3Skin: dry, intact, no gross abnormalitiesPsychiatry: normal affect, normal judgment/insight, normal mood ResultsFindings/Data:Laboratory Tests: 07/26 07/26 07/26 07/26 1008 1008 1008 1006Chemistry Sodium (134 - 147 mEq/L) 129 L Potassium (3.4 - 5.0 mEq/L) 4.0 Chloride (100 - 108 mEq/L) 92 L Carbon Dioxide (21 - 33 mEq/l) 31 Anion Gap (0 - 20) 11 BUN (7 - 25 mg/dL) 27 H Creatinine (0.6 - 1.3 mg/dL) 1.1 Glomerular Filtr Rate (70 - 80) 49.2 L Glucose (77 - 141 mg/dL) 145 H Hemoglobi n A1c (4.8 - 6.0 %A1C) 5.4 Calcium (8.0 - 10.5 mg/dL) 9.3 Magnesium (1.6 - 2.6 mg/dL) 1.83 Total Bilirubin (0.0 - 1.0 mg/dL) 0.70 AST (8 - 34 IUnit/L) 29 ALT (10 - 49 IUnit/L) 18 Total Alk Phosphatase (20 - 125 IUnit/L) 65 B-Natriuretic Peptide (0 - 100 PG/ML) 195.0 H Total Protein (6.4 - 8.2 g/dL) 7.6 Albumin (3.4 - 5.0 g/dL) 3.80 Triglycerides (40 - 150 mg/dL) 58 Cholesterol (<200 mg/dL) 140 LDL Cholesterol Measurd (0 - 100 mg/dL) 52.0 HDL Cholesterol (40 - 60 MG/DL) 61.5 H Cholesterol/HDL Ratio (3.27 - 4.44 RATIO) 2.28 LCoagulation INR (0.8 - 1.2) 1. 1 PTT ([place]) (25.0 - 39.5 Seconds) 35.2 PT Patient/Control Mix (9.3 - 12.9 SECONDS) 11.9Hematology WBC (4.5 - 11.0 x10 3/uL) 12.1 H RBC (3.54 - 5.02 x10 6/uL) 4.93 Hgb (11.0 - 15.0 g/dL) 14.1 Hct (33.0 - 45.0 %) 42.6 MCV (81.0 - 99.0 fL) 86.4 MCH (27.0 - 33.0 pg) 28.6 MCHC (33.0 - 37.0 g/dL) 33.1 RDW (11.5 - 14.5 %) 13.1 Plt Count (150 - 400 x10 3/uL) 317 MPV (7.0 - 9. 0 fL) 11.0 H Neut % (Auto) (56.0 - 77.0 %) 78.6 H Lymph % (Auto) (14.0 - 32.0 %) 11.8 L [place] % (Auto) (4.8 - 9.0 %) 8.5 Eos % (Auto) (0.3 - 3.7 %) 0.4 Baso % (Auto) (0.0 - 2.0 %) 0.2 Neut # (Auto) (2.0 - 7.6 x10 3/uL) 9.50 H Lymph # (Auto ) (1.0 - 3.8 x10 3/uL) 1.43 [place] # (Auto) (0.1 - 0.8 x10 3/uL) 1.03 H Eos # (Auto) (0.0 - 0.2 x10 3/uL) 0.05 Baso # (Auto) (0.0 - 0.2 x10 3/uL) 0.03 Abs Immat Gran (auto) (0.00 - 0.03 x10 3/uL ) 0.06 H Immature Gran % (0.0 - 2.0 %) 0.5 Nucleated RBC % (0 - 0 %) 0.0 Nucleated RBCs # (Man) (0.0 - 0.1 x10 3/uL) 0.00 07/26 0901 Chemistry POC Glucose (70 - 110 MG/DL) 137 H Radiology data:Recent Impressions:ULTRASOUND - DUP EXTRACRANIAL [place] 07/26 1105 Report Impression - Status: SIGNED Entered: 07/26/2023 1115 IMPRESSION:Minimal atherosclerotic disease within the bilateral carotidbifurcations. No evidence of hemodynamically significant (greater than50%) stenosis. LOCATION: [id number] By: 16 - Tammie Francis M.D.RADIOLOGY - XR CHEST 2 V 07/26 1109 Report Impression - Status: SIGNED Entered: 07/26/2023 1127 IMPRESSION:1. No radiographic evidence of acute cardiopulmonary process.Impression By: [email or web address] - Toya Ybarra M.D. Diagnosis, Assessment PlanOrders: Procedure Date/time Status CONSISTENT CARBOHYDRATE DIET 07/26 B Active Resuscitation Status 07/26 1135 Active Telemetry Monitoring 07/26 1135 Active MRSA Protocol 07/26 113 Active LEVEL OF CARE 07/26 113 Active ADMIT PATIENT (CPOE) 07/26 113 Active XR CHEST 2V 07/26 1109 Complete DUP EXTRACRANIAL [place] 07/26 1105 Complete MAGNESIUM 07/26 1008 Complete Educate/Teach Patient 07/26 0847 Active Notify MD: Hypoglycemia 07/26 0847 Active NPO/Low Intake Insulin Instr 07/26 0847 Active Hypoglycemia Orders 07/26 0847 Active Educate/Teach Hypoglycemia 07/26 0847 Active Correctional Insulin Instr 07/26 0847 Active CTA CHEST 07/26 0845 Active CTA ABD PEL W CONT 07/26 0845 Active CTA HEART W CN ART/GRAFTS 07/26 0845 Active TAVR Nurse Consult 07/26 0845 Active County Adviser Physician Cons. 07/26 0844 Active Resuscitation Status 07/26 07 Complete MRSA Protocol 07/26 0747 Active Intake Output 07/26 0747 Active Measure Height 07/26 747 Active Weight: Obtain 07/26 0747 Active Blood Pressure Mgmt Parameter 07/26 0747 Active Activity 07/26 0747 Active Blood Glucose Monitoring 07/26 747 Active UA WITH CULTURE IF INDICATED 07/26 747 Active THROMBOPLASTIN TIME PARTIAL 07/26 747 Complete PROTHROMBIN TIME 07/26 747 Complete LIPID PROFILE (CORONARY RISK) 07/26 747 Complet e HGBA1C% 07/26 747 Complete COMPREHENSIVE METABOLIC PANEL 07/26 747 Complete CBC W/AUTO DIFF 07/26 747 Complete B TYPE NATRIURETIC PEPT 07/26 747 Complete EKG 07/26 747 Active ADULT ECHO COMPLETE 07/26 747 Active _RT: PULSE OXIMETRY SPOT CHECK 07/26 742 Active _RT: INCENTIVE SPIROMETER 07/26 742 Active Vital Signs 07/26 742 Active Telemetry Monitoring 07/26 742 Active Sequential Compression Device 07/26 742 Active Notify MD Vitals 07/26 742 Active IV Access 07/26 742 Active Intake Output 07/26 742 Active Cough And Deep Breath: Assist 07/26 742 Active PHYSICAL THERAPIST CONSULT 07/26 742 Active Occupational Therapist Consult 07/26 742 Active Telemetry Monitoring 07/26 3 Active Plan discussed with: patient, collaborating MD Free Text DxA P NotesFree Text DxA P Notes:83-year-old female, PMHx HTN, diabetes on metformin, HLD, back pain, arthritis , vertigo for which she reportedly takes a Xanax, breast cancer left-sided mastectomy. Patient is transferred to us from [facility], patient of Dr. Hernández, and she reports chest pressure, burning sensation in her throat, sensation of nausea which started a few weeks ago after having a GI illness with vomiting. Patient was evaluated at [facility] for reports of chest pain, and findings of normal EKG, troponins within normal limits, BNP elevated at 1397, UA negative, chest x-ray stable, echocardiogram done with findings of severe aortic stenosis patient referred to us for TAVR evaluation. Patient reports cardiac cat h done at [facility], however, we have no report o f cardiac cath and no CD with echo or heart cath findings. Assessment:Aortic stenosis, TAVR evalHTNDiabetesHyponatremia Patient seen and evaluated by Dr. Rankin and he agrees with plan for TAVR.-TAVR wzdl-os-Rgfhoeyenf ynnirhb-Kpdntipsxdtq-nntes restriction-Resume prior hospital [facility] Apolinar Rankin 08/09/23 0828:Attestations Physician AttestationAgree w/findings plan:I have seen and examined Ms. Gibson. I agree with the findings and plan as documented by ASIYA Sweet. Briefly, 83-year-old female with severe aortic stenosis. Patient will benefit from intervention on the aortic valve. In view of her age, I think her interestwould be best served with TAVR. She will be worked up and presented the structural heart conference. Thank you for the kind consult. at 1204 at 0846 [facility] #:[id number] OF REPORTHPHistory and physical [id number]:38:00G.[id number] 3 AVAvailable for patient [id number]:05:06 2023-07-26 08:28:00 [id number] [place] [address] PATIENT NAME: EVELYN GIBSON ADMIT DATE: 07/26/23ACCOUNT NO: [id number] [place]OM NO[place] [facility] [place] AGE: 83 REPORT TYPE: eELECTROCARDIOGRAM REPORT SEX: F ADMITTING PHYSICIAN:Apolinar Rankin MD ATTENDING PHYSICIAN:Apolinar Rankin MD Order:[id number] Reason : PREOP Test Date/Time Stamp:FriJul 26 2023 08:28:22Blood Pressure : / mmHGVent. Rate : 083 BPM Atrial Rate : 083 BPM P-R Int : 132 ms QRS Dur : 090 ms QT Int : 398 ms P-R-T Axes : 084 035 074 degrees QTc Int : 467 ms Normal sinus rhythm wit h sinus arrhythmiaNormal ECGNo previous ECGs availableConfirmed by BAN RUTH MD ([id number]) o n 07/26/2023 2:48:15 PM Referred By: Self Referred Confirmed by:BAN RUTH MD at 1443 PATIENT NAME: EVELYN GIBSON .[id number] AVAvailable for patient [id number]:48:43
[2023-08-24 11:09] LABS: Absolute Lymphocytes (CBC) 1.1 K/uL (0.7-4.9); Hematocrit 35.1 % (36.0-45.0); Lymphocytes % 15.2 % (15.3-44.8); MCV 90.5 fL (80-100); MPV 8.9 fL (7.6-11.3); Platelets 226 thou/uL (152-406); RBC Red Blood Cell Count 3.87 M/uL (3.86-4.86)
--- NOTE | 2023-08-24 11:22 | RAD REPORT ---
EXAM DESCRIPTION: CT - Head C Spine Cap Wo Con - 08/24/2023 10:43 am CLINICAL HISTORY: Head and neck injury with chest and abdominal pain status post fall TECHNIQUE: Computed axial tomography of head, neck, chest, abdomen and pelvis obtained. IV and oral contrast not requested. Coronal and sagittal reconstruction performed. All CT scans are performed using dose optimization technique as appropriate and may include automated exposure control or mA/KV adjustment according to patient size. 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 The ventricles are normal in caliber. An extra-axial fluid collection is not noted. Fluid within the sinuses/mastoids is not seen. A cervical fracture is not seen. No dislocation is noted. The evaluation of mediastinum, hugh, vessels, solid organs and bowel are limited secondary to the lac k of contrast administration. A mediastinal hematoma is not noted. A pleural effusion is not seen. A lung contusion is not present. Mildly displaced fracture medial left clavicle The liver,spleen, pancreas, adrenals,kidneys and bladder do not demonstrate an acute traumatic injury Renal cysts IMPRESSION: No acute intracranial abnormality is seen. A cervical fracture is not visualized. If the patient continues to have symptoms to suggest intracran ial/spinal cord pathology MRI be recommended Mildly displaced fracture medial left clavicle
--- NOTE | 2023-08-24 11:58 | EDPHYS ---
Physician Documentation [facility] Name: Tara Gibson Age: 83 yrs Sex: Female : 1940 Arrival Date: 08/24/2023 Time: 10:20 Bed 15 Private MD: ED Physician Charles Garza HPI: 08/24 10:23 This 83 yrs old Female presents to ER via EMS with complaints of Fall Injury. jh7 10:23 Details of fall: The patient fell from an upright position, while walking. Onset: The jh7 symptoms/episode began/occurred acutely. Associated injuries: The patient sustained injury to the head, hematoma. 83-year-old female presents to the ER post fall. She reports that she slipped on her socks in the bathroom this morning and hit the back of her head on the sink. She denies LOC or dizziness. She is currently on Eliquis for a valve replacement. She she reports that she slipped and fell 3 days ago and has a hematoma on her left elbow as well. She complains of a headache but denies any other symptoms at this time.. Historical: - Allergies: 10:24 No Known Allergies; kc6 - PMHx: 10:24 Arthritis; Back pain; Diabetes - NIDDM; High Cholesterol; Hypertension; kc6 - PSHx: 10:24 Left Mastectomy; aortic vavle replacement (Left Mastectomy); kc6 - Immunization history:: Adult Immunizations unknown. - Social history:: Smoking status: unknown. ROS: 10:23 Constitutional: Negative for fever, chills, and weight loss, Eyes: Negative for injury, jh7 pain, redness, and discharge, ENT: Negative for injury, pain, and discharge, Neck: Negative for injury, pain, and swelling, Cardiovascular: Negative for chest pain, palpitations, and edema, Respiratory: Negative for shortness of breath, cough, wheezing, and pleuritic chest pain, Abdomen/GI: Negative for abdominal pain, nausea, vomiting, diarrhea, and constipation, Back: Negative for injury and pain, MS/Extremity: Negative for injury and deformity, Skin: Negative for injury, rash, and discoloration, 10:23 Neuro: Positive for headache, Negative for altered mental status, dizziness, gait disturbance, loss of consciousness, numbness, syncope, tingling, visual changes, weakness, 10:23 All other systems are negative, Exam: 10:23 Constitutional: This is a well developed, well nourished patient who is awake, alert, jh7 and in no acute distress. Eyes: Pupils equal round and reactive to light, extra-ocular motions intact. Lids and lashes normal. Conjunctiva and sclera are non-icteric and not injected. Cornea within normal limits. Periorbital areas with no swelling, redness, or edema. ENT: Nares patent. No nasal discharge, no septal abnormalities noted. Tympanic membranes are normal and external auditory canals are clear. Oropharynx with no redness, swelling, or masses, exudates, or evidence of obstruction, uvula midline. Mucous membranes moist. Neck: Trachea midline, no thyromegaly or masses palpated, and no cervical lymphadenopathy. Supple, full range of motion without nuchal rigidity, or vertebral point tenderness. No Meningismus. Cardiovascular: Regular rate and rhythm with a normal S1 and S2. No gallops, murmurs, or rubs. Normal PMI, no JVD. No pulse deficits. Respiratory: Lungs have equal breath sounds bilaterally, clear to auscultation and percussion. No rales, rhonchi or wheezes noted. No increased work of breathing, no retractions or nasal flaring. Abdomen/GI: Soft, non-tender, with normal bowel sounds. No distension or tympany. No guarding or rebound. No evidence of tenderness throughout. Back: No spinal tenderness. No costovertebral tenderness. Full range of motion. Skin: Warm, dry with normal turgor. Normal color with no rashes, no lesions, and no evidence of cellulitis. MS/ Extremity: Pulses equal, no cyanosis. Neurovascular intact. Full, normal range of motion. Neuro: Awake and alert, GCS 15, oriented to person, place, time, and situation. Motor strength 5/5 in all extremities. Sensory grossly intact. Normal gait. 10:23 Head/face: Noted is hematoma, that is moderate, of the left side of the back of head, Vital Signs: 10:23 BP 117 / 74; Pulse 89; Resp 16 S; Pulse Ox 98% on R/A; Weight 90.72 kg (R); Height 5 kc6 ft. 2 in. (R); 11:43 Pulse 86; Resp 18 S; Pulse Ox 98% on R/A; 6 10:23 Body Mass Index 36.58 (90.72 kg, 157.48 cm) [facility] MDM: 10:24 Patient medically screened. [facility] 12:47 Differential diagnosis: closed head injury, contusion, multiple trauma, Concussion with jh7 loss of consciousness, concussion without loss of consciousness, intracranial bleed, skull fracture. Data reviewed: vital signs, nurses notes, lab test result(s), EKG, radiologic studies, CT scan. I considered the following discharge prescriptions or medication management in the emergency department Medications were administered in the Emergency Department. See MAR. Care significantly affected by the following chronic conditions: Diabetes, Hypertension. Counseling: I had a detailed discussion with the patient and/or guardian regarding the historical points, exam findings, and any diagnostic results supporting the discharge/admit diagnosis, the need for outpatient follow up, a orthopedic surgeon, to return to the emergency department if symptoms worsen or persist or if there are any questions or concerns that arise at home. Response to treatment: the patient's symptoms have mildly improved after treatment. 08/24 10:25 Order name: Basic Metabolic Panel; Complete Time: 11:20 [facility] 08/24 10:25 Order name: CBC with Diff; Complete Time: 11:20 [facility] 08/24 10:25 Order name: Type And Screen; Complete Time: 12:45 [facility] 08/24 10:25 Order name: CT Traumagram (Head C Spine CAP wo con); Complete Time: 11:32 [facility] 08/24 10:25 Order name: Labs collected and sent; Complete Time: 10:58 [facility] 08/24 11:20 Order name: EKG - Nurse/Tech; Complete Time: 11:31 [facility] 08/24 11:34 Order name: Sling; Complete Time: 12:04 [facility] EC:29 Rate is 85 beats/min. Rhythm is regular. QRS [place] is Normal. NV interval is normal at [facility] 158 msec. QRS interval is normal at 138 msec. QT interval is normal at 436 msec. Clinical impression: Normal sinus rhythm with left bundle branch block. Changes noted from previous ECG on July 25, 2023. Previous findings: pt in NSR on 08/24, a-fib RVR on 07/25. Administered Medications: No medications were administered Disposition Summary: 08/24/23 11:58 Discharge Ordered Notes: Location: Home [facility] Problem: new [facility] Symptoms: are unchanged [facility] Condition: Stable [facility] Diagnosis - Fracture of clavicle 7 - Unspecified injury of head, initial encounter [facility] - Contusion of scalp, initial encounter [facility] Followup: [facility] - With: Jhon Argueta MD - When: 2 - 3 days - Reason: Recheck today's complaints Discharge Instructions: - Discharge Summary Sheet [facility] - Clavicle Fracture [facility] - Facial or Scalp Contusion [facility] - Head Injury, Adult [facility] - How to Use a Sling [facility] Forms: - Medication Reconciliation Form [facility] - Thank You Letter [facility] - Patient Portal Instructions [facility] - Leadership Thank You Letter [facility] Signatures: Dispatcher [employer] EDMS Tabitha Garcia, PARENT PARTNER PARENT PARTNER [facility] Andra Hamilton RN RN kc6 Corrections: (The following items were deleted from the chart) 11:40 11:29 Rate is 85 beats/min. Rhythm is regular. QRS [place] is Normal. NV interval is [facility] normal at 158 msec. QRS interval is normal at 138 msec. QT interval is normal at 436 msec. Clinical impression: Normal sinus rhythm with left bundle branch block. Changes noted from previous ECG on July 25, 2023. Previous findings: pt in NSR on 08/24, a-fib RVR on 07/25. [facility]
--- NOTE | 2023-08-24 11:58 | ER ---
Nurse's Notes [facility] Name: Tara Gibson Age: 83 yrs Sex: Female : 1940 Arrival Date: 08/24/2023 Time: 10:20 Bed 15 Private MD: Diagnosis: Fracture of clavicle;Unspecified injury of head, initial encounter;Contusion of scalp, initial encounter Presentation: 08/24 10:23 Chief complaint: EMS states: pt slipped and fell in her bathroom and hit her head. kc6 reports headache and left shoulder/elbow pain. denies LOC. c collar in place, 1gm of IV tylenol given en route by EMS. Coronavirus screen: At this time, the client does not indicate any symptoms associated with coronavirus-19. Ebola Screen: No symptoms or risks identified at this time. Initial Sepsis Screen: Does the patient meet any 2 criteria? No. Patient's initial sepsis screen is negative. Does the patient have a suspected source of infection? No. Patient's initial sepsis screen is negative. Risk Assessment: Do you want to hurt yourself or someone else? Patient reports no desire to harm self or others. Onset of symptoms was August 24, 2023. 10:23 Method Of Arrival: EMS: [facility] kc6 10:23 Acuity: JESSICA 3 kc6 Triage Assessment: 10:24 General: Appears in no apparent distress. comfortable, Behavior is calm, cooperative, kc6 appropriate for age. Pain: Complains of pain in scalp and left arm. EENT: No signs and/or symptoms were reported regarding the EENT system. Neuro: Level of Consciousness is awake, alert, obeys commands, Oriented to person, place, time, situation, Appropriate for age Reports headache. Cardiovascular: Capillary refill < 3 seconds. Respiratory: Airway is patent Trachea midline Respiratory effort is even, unlabored, Respiratory pattern is regular, symmetrical. GI: No signs and/or symptoms were reported involving the gastrointestinal system. : No signs and/or symptoms were reported regarding the genitourinary system. Derm: No signs and/or symptoms reported regarding the dermatologic system. Skin is intact, is healthy with good turgor, Skin is pink, warm \T\ dry. Musculoskeletal: No signs and/or symptoms reported regarding the musculoskeletal system. Circulation, motion, and sensation intact. Capillary refill < 3 seconds, Range of motion: intact in all extremities. Historical: - Allergies: 10:24 No Known Allergies; kc6 - PMHx: 10:24 Arthritis; Back pain; Diabetes - NIDDM; High Cholesterol; Hypertension; kc6 - PSHx: 10:24 Left Mastectomy; aortic vavle replacement (Left Mastectomy); kc6 - Immunization history:: Adult Immunizations unknown. - Social history:: Smoking status: unknown. Screenin:26 [facility] ED Fall Risk Assessment (Adult) History of falling in the last 3 months, kc including since admission Yes- single mechanical fall (1 pt) Confusion or Disorientation No (0 pts) Intoxicated or Sedated No (0 pts) Impaired Gait Yes (1 pt) Mobility Assist Device Used No (0 pt) Altered Elimination No (0 pt) Score/Fall Risk Level 0 - 2 = Low Risk. Abuse screen: Denies threats or abuse. Denies injuries from another. Nutritional screening: No deficits noted. Tuberculosis screening: No symptoms or risk factors identified. Assessment: 10:26 Reassessment: please see triage assessment. kc 11:26 Reassessment: Patient appears in no apparent distress at this time. No changes from [facility] previously documented assessment. Patient and/or family updated on plan of care and expected duration. Pain level reassessed. Patient is alert, oriented x 3, equal unlabored respirations, skin warm/dry/pink. 11:58 Reassessment: d/c pending transport back home. pt states her grand daughter will come kc get her. 12:26 Reassessment: Patient appears in no apparent distress at this time. No changes from [facility] previously documented assessment. Patient and/or family updated on plan of care and expected duration. Pain level reassessed. Patient is alert, oriented x 3, equal unlabored respirations, skin warm/dry/pink. 13:25 Reassessment: Patient appears in no apparent distress at this time. No changes from [facility] previously documented assessment. Patient and/or family updated on plan of care and expected duration. Pain level reassessed. Patient is alert, oriented x 3, equal unlabored respirations, skin warm/dry/pink. pt states her grand daughter is on her way from . Vital Signs: 10:23 BP 117 / 74; Pulse 89; Resp 16 S; Pulse Ox 98% on R/A; Weight 90.72 kg (R); Height 5 kc6 ft. 2 in. (R); 11:43 Pulse 86; Resp 18 S; Pulse Ox 98% on R/A; kc6 10:23 Body Mass Index 36.58 (90.72 kg, 157.48 cm) 6 ED Course: 10:23 Patient arrived in ED. kc6 10:24 Triage completed. 6 10:24 [facility] 10:24 Charles Garza MD is Attending Physician. [facility] 10:24 Arm band placed on. kc6 10:26 Patient has correct armband on for positive identification. Bed in low position. Call kc6 light in reach. Side rails up X2. Client placed on continuous cardiac and pulse oximetry monitoring. NIBP monitoring applied. 10:26 Maintain EMS IV. Dressing intact. Good blood return noted. Site clean \T\ dry. Gauge \T\ skye 6 site: 22G RFA. Patient maintains SpO2 saturation greater than 95% on room air. 10:27 Andra Hamilton RN is Primary Nurse. [facility] 10:45 CT Traumagram (Head C Spine CAP wo con) In Process Unspecified. EDMS 11:57 Jhon Argueta MD is Referral Physician. [facility] 12:29 IV discontinued, intact, bleeding controlled, No redness/swelling at site. Pressure 6 dressing applied. 14:05 No provider procedures requiring assistance completed. 6 Administered Medications: No medications were administered Medication: 14:05 VIS not applicable for this client. [facility] Outcome: 11:58 Discharge ordered by . [facility] 14:05 Discharged to home via wheelchair, with family, [facility] 14:05 Condition: good 14:05 Discharge instructions given to patient, family, Instructed on discharge instructions, follow up and referral plans. Demonstrated understanding of instructions, follow-up care, 14:06 Patient left the ED. [facility] Signatures: Dispatcher [employer] EDMS Tabitha Garcia FNP FNP [id number] Campbell, Kaitlyn, RN RN [facility] Corrections: (The following items were deleted from the chart) 10:27 10:23 Chief complaint: EMS states: pt slipped and fell in her bathroom and hit her kc6 head. reports headache and left shoulder/elbow pain. denies LOC kc6
[2023-08-24 14:38] VITALS: BP 117/74; O2SAT 98
--- NOTE | 2023-08-26 13:36 | EKG ---
Test Date: 2023-08-24 Test Time: 11:29:13 Lockstitch Topstitcher: DANE MEASUREMENT RESULTS: Intervals: Rate: 85 PA: 158 QRSD: 138 QT: 436 QTc: 518 [place]: P: 84 PA: 158 QRS: 23 T: 90 INTERPRETIVE STATEMENTS: Normal sinus rhythm Left bundle branch block Abnormal ECG Compared to ECG 07/25/2023 07:23:54 Left bundle-branch block now present Atrial fibrillation no longer present Incomplete right bundle-branch block no longer present Left ventricular hypertrophy no longer present ST (T wave) deviation no longer present Possible ischemia no longer present Electronically Signed On 08-26-23 13:28:43 CARRIAGE SETTER by Ziyad Hernández
== END 2023-08-24 14:06 | disposition home or self-care (01) ==
LOC: ER 10:20
DX: S42.012A Anterior displaced fracture of sternal end of left clavicle, initial encounter for closed fracture (principal); S00.03XA Contusion of scalp, initial encounter; W01.0XXA Fall on same level from slipping, tripping and stumbling without subsequent striking against object, initial encounter; E11.9 Type 2 diabetes mellitus without complications; I10 Essential (primary) hypertension
CPT/HCPCS: 36415; 70450; 71250; 72125; 80048; 85025; 86850; 86900; 86901; 93005; 99284

== ENCOUNTER 2023-08-25 13:13 | Inpatient (IN) | payer OTHER ==
--- OUTSIDE RECORDS SUMMARY | 2023-08-25 13:18 | XMS REPORT | Continuity of Care Document ---
:1940 Author Organization [facility] t Address [address] [facility] [address] [place] [address] Care Team Providers Name Role Phone Apolinar Rankin Attending Clinician Unavailable ARVIND_GCBZW_Paige_S Attending Clinician Unavailable CRISTIAN PORTILLO Attending Clinician Unavailable Apolinar Rankin Admitting Clinician Unavailable ARVIND_GCBZW_Katika_S Admitting Clinician Unavailable CRISTIAN PORTILLO Admitting Clinician Unavailable Payers Payer Name Policy Type Policy Number Effective Date Expiration Date S carrie [facility] - MEDICARE [id number] COMPLETE (MEDICARE REPLACEMENT HMO) Problems This patient has no known problems. Allergies, Adverse Reactions, Alerts Allergy Allergy Status Severity Reaction(s) Onset Inactive Treating Comm ents Source Name Type Date Date Clinician diphenhy DA Active U NAUSEA/VOMIT 2022-09 HC Katarina dramine ING 09-25 Clear 00:00: Ferrara 00 [facility] Medications This patient has no known medications. Procedures Procedure Date / Time Performed Performing Clinician Rahul stratton [id number] 2023-07-30 00:00:00 CHAAB.01 BRITTANY Marshall [facility] [id number] 2023-07-30 00:00:00 CHAAB.01 [facility] Cayla [facility] [id number] 2023-07-30 00:00:00 CHAAB.01 [facility] Cayla [facility] Encounters Start End Encounter Admission Attending Care Care Encounter Source Date/Time Date/Time Type Type Clinicians Facility Department ID 2023-07-26 2023-08-05 Inpatient STEPHON Lopez [facility] [id number] [facility] 03:56:00 16:50:00 Apolinar 10 [facility] 2023-07-23 2023-07-23 Outpatient GC_GCBZW_Ka PRIV PRIV [id number] [facility] 00:00:00 00:00:00 diyala_S [id number] Medic al 2023-07-21 2023-07-21 Outpatient GC_GCBZW_Ka PRIV PRIV [id number] [facility] 00:00:00 00:00:00 diyala_S [id number] Medic al 2017-03-18 2017-05-04 Outpatient Dante PORTILLO, [facility] [place] [id number] [facility] 14:00:00 23:59:00 [facility] Results Test Description Test Time Test Comments Results Result Comments Source GLUCOSE BEDSIDE 2023-08-05 12:18:00 Test Item Value Reference Range Interpretation Comme nts GLUCOSE BEDSIDE (test code = 119 MG/DL 70-110 H Performed by certified 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 [facility]) [facility] GLUCOSE [id number] 08:22:00 Test Item Value Reference Range Interpretation Comments GLUCOSE BEDSIDE (test 100 MG/DL 70-110 N [facility] by certified code = GLUBED) 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 [facility] BASIC METABOLIC [id number] 05:52:00 Test Item Value Reference Range Interpretation [...] the recommended for bernard for GFRby the [facility] on for Adults.The GFR will not calculate if th e sex is unknown or if thepatient's ag e is <18 years. CREATININE (test 0.7 mg/dL 0.6-1.3 N code = CREAT) CALCIUM (test code = 8.3 mg/dL 8.0-10.5 N CA) [id number] 05:52:00 Test Item Value Reference Range Interpretation Comments MAGNESIUM (test code = 1.90 mg/dL 1.6-2.6 N NOTE: NEW NORMAL MAG) RANGE CBC W/AUTO [id number] 05:43:00 Test Item Value Reference Range Interpretation [...] 0.00 x10 3/uL 0.0-0.1 N NRBC#) GLUCOSE [id number] 22:53:00 Test Item Value Reference Range Interpretation Comments GLUCOSE BEDSIDE (test 99 MG/DL 70-110 N Perfor med by certified code = GLUBED) 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 [facility] GLUCOSE [id number] 16:38:00 Test Item Value Reference Range Interpretation Comments GLUCOSE BEDSIDE (test 123 MG/DL 70-110 H Perfor med by certified code = GLUBED) 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 [facility] GLUCOSE [id number] 12:06:00 Test Item Value Reference Range Interpretation Comments GLUCOSE BEDSIDE (test 115 MG/DL 70-110 H Perfor med by certified code = GLUBED) 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 [facility] POC ARTERIAL BLOOD [id number] 08:43:00 Test Item Value Reference Range Interpretation Comments POC ARTERIAL BLOOD GAS PH (test 7.361 7.35-7.45 N code = POCPHA) POC ARTERIAL BLOOD GAS PCO2 (test 36.3 mmHg 35.0-45 N code = [id number]) POC TCO2 ARTERIAL (test code = 21.6 POCTCO2) POC ARTERIAL BLOOD GAS PO2 (test 122.7 mmHg 80-100.0 H code = PPUCM3P) POC HCO3 ARTERIAL (test code = 20.5 MMOL/L 22.0-26.0 L BJUEHY2J) POC BASE EXCESS (test code = -4.9 MMOL/L -4.0-4.0 L POCBEA) POC O2 SATURATION (test code = 98.6 % 90-100 N POCO2S) GLUCOSE [id number] 07:40:00 Test Item Value Reference Range Interpretation Comments GLUCOSE BEDSIDE (test 109 MG/DL 70-110 N Perfor med by certified code = GLUBED) 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 [facility] BASIC METABOLIC [id number] 06:43:00 Test Item Value Reference Range Interpretation [...] code = 8.6 mg/dL 8.0-10.5 N CA) [id number] 06:43:00 Test Item Value Reference Range Interpretation Comments MAGNESIUM (test code = 1.99 mg/dL 1.6-2.6 N NOTE: NEW NORMAL MAG) RANGE CBC W/AUTO [id number] 06:24:00 Test Item Value Reference Range Interpretation [...] 0.00 x10 3/uL 0.0-0.1 N NRBC#) GLUCOSE [id number] 21:25:00 Test Item Value Reference Range Interpretation Comments GLUCOSE BEDSIDE (test 151 MG/DL 70-110 H Perfor med by certified code = GLUBED) 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 [facility] - US SOFT TISSUE [id number] 21:17:00 [facility] : 1940 Sex: F Name: EVELYN GIBSON [facility] : 1940 Age/S: 83 / F [address] [place] [address] Unit #: [id number] Loc: [place] [address] Phys: Dayna Younger Acct: [id number] Dis Date: Status: ADM IN PHONE #: [phone] Exam Date: 08/03/20231737 FAX #: [phone] Reason: groin wounds bleeding. EXAMS: CPT CODE: [id number] US SOFT TISSUE TORSO 06622 EXAMINATION: - US SOFT TISSUE TORSO CLINICALINDICATION: [...] Rankin MD; Dayna Younger Technologist: Elaine Zaman [facility] Date/Time: 08/03/2023 (2116) [id number] Orig Print D/T: S: 08/03/2023 (2119) Probe: PAGE 1 Signed ReportGLUCOSE [id number] 17:12:00 Test Item Value Reference Range Interpretation Comments GLUCOSE BEDSIDE (test 128 MG/DL 70-110 H Perfor med by certified code = GLUBED) 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 [facility] GLUCOSE [id number] 12:54:00 Test Item Value Reference Range Interpretation Comments GLUCOSE BEDSIDE (test 145 MG/DL 70-110 H Perfor med by certified code = GLUBED) 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 [facility] BASIC METABOLIC [id number] 06:10:00 Test Item Value Reference Range Interpretation [...] code = 8.6 mg/dL 8.0-10.5 N CA) [id number] 06:10:00 Test Item Value Reference Range Interpretation Comments MAGNESIUM (test code = 2.26 mg/dL 1.6-2.6 NOTE: NEW NORMAL MAG) RANGE CBC W/AUTO [id number] 05:42:00 Test Item Value Reference Range Interpretation [...] 0.00 x10 3/uL 0.0-0.1 N NRBC#) GLUCOSE [id number] 20:52:00 Test Item Value Reference Range Interpretation Comments GLUCOSE BEDSIDE (test 166 MG/DL 70-110 H Perfor med by certified code = GLUBED) 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 [facility] GLUCOSE [id number] 18:08:00 Test Item Value Reference Range Interpretation Comments GLUCOSE BEDSIDE (test 113 MG/DL 70-110 H Perfor med by certified code = GLUBED) 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 [facility] GLUCOSE [id number] 13:08:00 Test Item Value Reference Range Interpretation Comments GLUCOSE BEDSIDE (test 118 MG/DL 70-110 H Perfor med by certified code = GLUBED) 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 [facility] BASIC METABOLIC [id number] 03:58:00 Test Item Value Reference Range Interpretation [...] the recommended for bernard for GFRby the [facility] Kidney Foundati on for Adults.The GFR will not calculate if th e sex is unknown or if thepatient's ag e is <18 years. CREATININE (test 0.7 mg/dL 0.6-1.3 N code = CREAT) CALCIUM (test code = 8.8 mg/dL 8.0-10.5 N CA) [id number] 03:58:00 Test Item Value Reference Range Interpretation Comments MAGNESIUM (test code = 1.84 mg/dL 1.6-2.6 N NOTE: NEW NORMAL MAG) RANGE CALCIUM [id number] 03:58:00 Test Item Value Reference Range Interpretation Comments CALCIUM IONIZED (test code = SANAZ) 1.11 MMOL/L 1.09-1.30 N CBC W/AUTO [id number] 03:31:00 Test Item Value Reference Range Interpretation [...] 0.00 x10 3/uL 0.0-0.1 N NRBC#) GLUCOSE [id number] 16:35:00 Test Item Value Reference Range Interpretation Comments GLUCOSE BEDSIDE (test 111 MG/DL 70-110 H Perfor med by certified code = GLUBED) 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 [facility] - XR CHEST 1 [id number] 15:52:00 [facility] : 1940 Sex: F FAX: Apolinar Banuelos MD [phone] [address]: St: ADM FAX: Tabitha Herring [phone] -------- Name: EVELYN GIBSON [facility] : 1940 Age/S: 83/F [address] [place] [address] Blvd Unit #: [id number] Loc: G.2237 [place] [address] Phys: Tabitha Herring AGACNP Acct: [id number] Dis Date: Status: ADM IN PHONE #: [phone] Exam Date: 08/01/20231430 FAX #: [phone] Reason: afib RVR EXAMS: CPT CODE: [id number] XR CHEST 1 V 23559 Dictation location: C4. CHEST, FRONTAL VIEW HISTORY: [...] Herring Technologist: RT Tahir(R) Trnscrd Date/Time/By: 08/01/2023 (0142) : By: [email or web address] Orig Print D/T: S: 08/01/2023 (2614) PAGE 1 Signed ReportGLUCOSE BEDSIDE 2023-08-01 11:32:00 Test Item Value Reference Range Interpretation Comments GLUCOSE BEDSIDE (test 129 MG/DL 70-110 H Perfor med by certified code = GLUBED) 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 [facility] GLUCOSE [id number] 07:32:00 Test Item Value Reference Range Interpretation Comments GLUCOSE BEDSIDE (test 109 MG/DL 70-110 N Perfor med by certified code = GLUBED) 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 [facility] BASIC METABOLIC [id number] 07:25:00 Test Item Value Reference Range Interpretation [...] the recommended for bernard for GFRby the [facility]ney Foundati on for Adults.The GFR will not calculate if th e sex is unknown or if thepatient's ag e is <18 years. CREATININE (test 0.7 mg/dL 0.6-1.3 N code = CREAT) CALCIUM (test code = 9.1 mg/dL 8.0-10.5 N CA) [id number] 07:25:00 Test Item Value Reference Range Interpretation Comments MAGNESIUM (test code = 1.90 mg/dL 1.6-2.6 N NOTE: NEW NORMAL MAG) RANGE CBC W/AUTO [id number] 07:02:00 Test Item Value Reference Range Interpretation [...] 0.00 x10 3/uL 0.0-0.1 N NRBC#) GLUCOSE [id number] 16:20:00 Test Item Value Reference Range Interpretation Comments GLUCOSE BEDSIDE (test 107 MG/DL 70-110 N Perfor med by certified code = GLUBED) 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 [facility] GLUCOSE [id number] 11:36:00 Test Item Value Reference Range Interpretation Comments GLUCOSE BEDSIDE (test 178 MG/DL 70-110 H Perfor med by certified code = GLUBED) 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 [facility] GLUCOSE [id number] 07:36:00 Test Item Value Reference Range Interpretation Comments GLUCOSE BEDSIDE (test 99 MG/DL 70-110 N Perfor med by certified code = GLUBED) 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 [facility] BASIC METABOLIC [id number] 05:15:00 Test Item Value Reference Range Interpretation [...] the recommended for bernard for GFRby the [facility]ney Foundati on for Adults.The GFR will not calculate if th e sex is unknown or if thepatient's ag e is <18 years. CREATININE (test 0.9 mg/dL 0.6-1.3 N code = CREAT) CALCIUM (test code = 9.1 mg/dL 8.0-10.5 N CA) [id number] 05:15:00 Test Item Value Reference Range Interpretation Comments PHOSPHOROUS (test code = PHOS) 3.4 MG/DL 2.5-4.9 N [id number] 05:15:00 Test Item Value Reference Range Interpretation Comments MAGNESIUM (test code = 1.98 mg/dL 1.6-2.6 N NOTE: NEW NORMAL MAG) RANGE CALCIUM [id number] 05:15:00 Test Item Value Reference Range Interpretation Comments CALCIUM IONIZED (test code = SANAZ) 1.15 MMOL/L 1.09-1.30 N CBC W/AUTO [id number] 04:36:00 Test Item Value Reference Range Interpretation [...] 0.00 x10 3/uL 0.0-0.1 N NRBC#) GLUCOSE [id number] 20:44:00 Test Item Value Reference Range Interpretation Comments GLUCOSE BEDSIDE (test 170 MG/DL 70-110 H Perfor med by certified code = GLUBED) 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 [facility] GLUCOSE [id number] 16:19:00 Test Item Value Reference Range Interpretation Comments GLUCOSE BEDSIDE (test 79 MG/DL 70-110 N Perfor med by certified code = GLUBED) 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 [facility] GLUCOSE [id number] 13:57:00 Test Item Value Reference Range Interpretation Comments GLUCOSE BEDSIDE (test 88 MG/DL 70-110 N Perfor med by certified code = GLUBED) 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 [facility] GLUCOSE [id number] 13:57:00 Test Item Value Reference Range Interpretation Comments GLUCOSE BEDSIDE (test 108 MG/DL 70-110 N Perfor med by certified code = GLUBED) 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 [facility] - XR CHEST 1 [id number] 10:43:00 [facility] : 1940 Sex: F FAX: Apolinar Banuelos MD [phone] [place]: St: [facility] FAX: Kameron Degroot NP [phone] -------- Name: EVELYN GIBSON [facility] : 1940 Age/S: 83/F [address] [place] [address] Unit #: [id number] Loc: [place] [address] Phys: Kameron Degroot NP Acct: [id number] Dis Date: Status: ADM IN PHONE #: [phone] Date: 07/30/2023 104 FAX #: [phone] Reason: TAVR EXAMS: CPT CODE: [id number] XR CHEST 1 V 90472 EXAM: - XR CHEST 1 V INDICATION: [...] D/T: S: 07/30/2023 (1046) PAGE 1 Signed [id number] 08:42:00 Test Item Value Reference Range Interpretation Comments ACT-ISTAT (test code 276 SEC 74-137 H Perform ed by certified = ACTI) 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 [facility] [id number] 08:23:00 Test Item Value Reference Range Interpretation Comments ACT-ISTAT (test code 287 SEC 74-137 H Perform ed by certified = ACTI) 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 [facility] [id number] 03:41:00 Test Item Value Reference Range Interpretation Comments MAGNESIUM (test code = 1.97 mg/dL 1.6-2.6 N NOTE: NEW NORMAL MAG) RANGE BASIC METABOLIC [id number] 03:16:00 Test Item Value Reference Range Interpretation [...] To be done morning of Heart CathPROTHROMBIN [id number] 03:13:00 Test Item Value Reference Range Interpretation [...] (to prevent recurrent infar ct). THROMBOPLASTIN TIME [id number] 03:13:00 Test Item Value Reference Range Interpretation Comments THROMBOPLASTIN TIME 40.3 Seconds 25.0-39.5 H Therape utic Range: PARTIAL (test code = 50.4 - 88.3 Seconds PTT) Effective 01/05/2019 CBC W/AUTO [id number] 03:01:00 Test Item Value Reference Range Interpretation [...] of Heart Cath- CTA HEART W CN ART/[id number] 00:00:00[facility] : 1940 Sex: F Name: EVELYN GIBSON [facility] : 1940 Age/S: 83 / F [address] [place] [address] Blvd Unit #: [id number] Loc: [place] [address] Phys: Heaven Patel MATERIAL INSPECTOR Acct: [id number] Dis Date: Status: ADM IN PHONE #: [phone] Exam Date: 07/28/2023 1323 FAX #: [phone] Reason: herb for Exam: AV STENOSIS EXAMS: CPT CODE: [id number] CTA HEART W CN ART/GRAFTS 01047 Radiation Dose CTDIVOL = 2.12 (mGy): DLP [...] 1 Signed Report (CONTINUED) Name: EVELY[facility]BSON [facility] : 1940 Age/S: 83 / F [address] [place] [address] Blvd Unit #: [id number] Loc: [place] [id number] Phys: Heaven Patel NP Acct: [id number] Dis Date: Status: ADM IN PHONE #: [phone] Exam Date: 07/28/2023 1323 FAX #: [phone] Reason: herb for Exam: AV STENOSIS EXAMS: CPT CODE: [id number] CTA HEART W CN ART/GRAFTS 63125 (Continued) Annular/Subannular calcification: Moderate burden. There are [...] 2 Signed Report (CONTINUED) Name: [facility] : 1940 Age/S: 83 / F [address] [place], [place] [address]vd Unit #: [id number] Loc: [facility] [place] [address] Phys: Heaven Patel NP Acct: [id number] Dis Date: Status: ADM IN PHONE #: [phone] Exam Date: 07/28/2023 1323 FAX #: [phone] Reason: herb for Exam: AV STENOSIS EXAMS: CPT CODE: [id number] CTA HEART W CN ART/GRAFTS 90979 (Continued) patient has received 0 known CTs [...] 3 Signed Report (CONTINUED) Name: EVELYN GIBSON [facility] Cayla Ferrara : 1940 Age/S: 83 / F [address] [place] [address] Unit #: [id number]: [place] [address] Phys: Heaven Patel MATERIAL INSPECTOR Acct: [id number] Dis Date: Status: ADM IN PHONE #: [phone] Exam Date: 07/28/20231322 FAX #: [phone] Reason: herb for Exam: AV STENOSIS EXAMS: CPT CODE: [id number] CTA HEART W CN ART/GRAFTS 02731 (Continued) 1. Patent bilateral iliofemoral a rteries [...] (418) PAGE 4 Signed Report- CT ANGIO [id number] 00:00:00 [facility] : 1940 Sex: F Name: EVELYN GIBSON [facility] Cayla Ferrara : 1940 Age/S: 83 / F [address] [place] [address] Unit #: [id number] Loc: [place] [address] Phys: Heaven Patel NP Acct: [id number] Dis Date: Status: ADM IN PHONE #: [phone] Exam Date: 07/28/20231323 FAX #: [phone] Reason: AV STENOSIS EXAMS: CPT CODE: [id number] CT ANGIO CHEST 24129 Radiation Dose CTDIVOL = 2.12 (mGy): DLP [...] 1 Signed Report (CONTINUED) Name: EVELYN GIBSON [facility] Ferr[facility] : 1940 Age/S: 83 / F [address] [place] [address] Blvd Unit #: [id number] Loc: [place] [address] Phys: Heaven Patel NP Acct: [id number] Dis Date: Status: ADM IN PHONE #: [phone] Exam Date: 07/28/2023 1324 FAX #: [phone] Reason: AV STENOSIS EXAMS: CPT CODE: [id number] CT ANGIO CHEST 02942 (Continued) Annular/Subannular calcification: Moderate burden. There are [...] 2 Signed Report (CONTINUED) Name: EVELYN GIBSON [facility] Harris : 1940 Age/S: 83 / F [address] [place] [address] Unit #: [id number] Loc: [place] [address] Phys: Heaven Patel NP Acct: [id number] Dis Date: Status: ADM IN PHONE #: [phone] Exam Date: 07/28/2023 1324 FAX #:[phone] Reason: AV STENOSIS EXAMS: CPT CODE: [id number] CT ANGIO CHEST 86658 (Continued) patient has received 0 known CTs [...] 3 Signed Report (CONTINUED) Name: EVELYN GIBSON [facility] : 1940 Age/S: 83 / F [address] [place] [address] Unit #: [id number] Loc: [place] [address] Phys: Heaven Patel NP Acct: [id number] Dis Date: Status: ADM IN PHONE #: [phone] Exam Date: 07/28/20231323 FAX #: [phone] Reason: AV STENOSIS EXAMS: CPT CODE: [id number] CT ANGIO CHEST 01189 (Continued) 1. Patent bilateral iliofemoral arteries without [...] 4 Signed Report- CTA ABD PEL W [id number] 00:00:[address] [facility] CAYLA FERRARAName: EVELYN GIBSON : 1940 Sex: F Name: EVELYN GIBSON [facility] Cayla Ferrara : 1940 Age/S: 83 / F [address] [place] [address] Unit #: [id number] Loc: [place] [address] Phys: Heaven Patel MATERIAL INSPECTOR Acct: [id number] Dis Date: Status: ADM IN PHONE #: [phone] Exam Date: 07/28/20231323 FAX #: [phone] Reason: AV STENOSIS EXAMS: CPT CODE: [id number] CTA ABD PEL W CONT 72067 Radiation Dose CTDIVOL = 2.12 (mGy): DLP [...] 1 Signed Report (CONTINUED) Name: EVELYN GIBSON [facility] Cayla Ferrara : 1940 Age/S: 83 / F [address] [place], [place] [address]vd Unit #: [id number] Loc: [place] [address] Phys: Heaven Patel NP Acct: [id number] Dis Date: Status: ADM IN PHONE #: [phone] Exam Date: 07/28/2023 1324 FAX #: [phone] Reason: AV STENOSIS EXAMS: CPT CODE: [id number] CTA ABD PEL W CONT 23452 (Continued) Annular/Subannular calcification: Moderate burden. There are [...] 2 Signed Report (CONTINUED) Name: EVELYN GIBSON [facility] : 1940 Age/S: 83 / F [address] [place] [address] Unit #: [id number] Loc: [place] [address] Phys: Heaven Patel MATERIAL INSPECTOR Acct: [id number] Dis Date: Status: ADM IN PHONE #: [phone] Exam Date: 07/28/2023 1324 FAX #: [phone] Reason: AV STENOSIS EXAMS: CPT CODE: [id number] CTA ABD PEL W CONT 47208 (Continued) patient has received 0 known CTs [...] 3 Signed Report (CONTINUED) Name: EVELYN GIBSON [facility] Harris : 1940 Age/S: 83 / F [address] [place] [address] Unit #: [id number] Loc: [place] [address] Phys: Heaven Patel NP Acct: [id number] Dis Date: Status: ADM IN PHONE #: [phone] Exam Date: 07/28/2023 1324 FAX #: [phone] Reason:AV STENOSIS EXAMS: CPT CODE: [id number] CTA ABD PEL W CONT 38905 (Continued) 1. Patent bilateral iliofemoral arteries without significant stenosis. 2. Mild emphysema. COMMENTS: Unless otherwise specified, incidental findings do not require dedicated imaging and follow-up. at 0418 Reported and signed by: Kar Camp M.D. CC: Heaven Patel MATERIAL INSPECTOR; Apolinar Rankin MD Technologist:Dipak Dumont Jr, RT(R)(CT) CTDI: DLP:Trnscb Date/Time: 07/30/2023 (041) [...] Infarction (to prevent recurrent infar ct). GLUCOSE [id number] 20:45:00 Test Item Value Reference Range Interpretation Comments GLUCOSE BEDSIDE (test 99 MG/DL 70-110 N Perfor med by certified code = GLUBED) 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 [facility] GLUCOSE [id number] 16:01:00 Test Item Value Reference Range Interpretation Comments GLUCOSE BEDSIDE (test 112 MG/DL 70-110 H Perfor med by certified code = GLUBED) 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 [facility] GLUCOSE [id number] 12:26:00 Test Item Value Reference Range Interpretation Comments GLUCOSE BEDSIDE (test 102 MG/DL 70-110 N Perfor med by certified code = GLUBED) 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 [facility] GLUCOSE [id number] 08:15:00 Test Item Value Reference Range Interpretation Comments GLUCOSE BEDSIDE (test 109 MG/DL 70-110 N Perfor med by certified code = GLUBED) 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 [facility] BASIC METABOLIC [id number] 03:54:00 Test Item Value Reference Range Interpretation [...] the recommended for bernard for GFRby the [facility] Kidney Foundati on for Adults.The GFR will not calculate if th e sex is unknown or if thepatient's ag e is <18 years. CREATININE (test 0.9 mg/dL 0.6-1.3 N code = CREAT) CALCIUM (test code = 9.0 mg/dL 8.0-10.5 N CA) [id number] 03:54:00 Test Item Value Reference Range Interpretation Comments MAGNESIUM (test code = 2.08 mg/dL 1.6-2.6 N NOTE: NEW NORMAL MAG) RANGE CBC W/AUTO [id number] 03:06:00 Test Item Value Reference Range Interpretation [...] 0.00 x10 3/uL 0.0-0.1 N NRBC#) GLUCOSE [id number] 20:50:00 Test Item Value Reference Range Interpretation Comments GLUCOSE BEDSIDE (test 121 MG/DL 70-110 H Perfor med by certified code = GLUBED) 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 [facility] GLUCOSE [id number] 17:11:00 Test Item Value Reference Range Interpretation Comments GLUCOSE BEDSIDE (test 116 MG/DL 70-110 H Perfor med by certified code = GLUBED) 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 [facility] - XR CHEST 2 [id number] 11:48:00 [facility] : 1940 Sex: F FAX: Heaven Patel NP [phone] [address]: St: [facility] FAX: Apolinar Banuelos MD [phone] Name: EVELYN GIBSON [facility] : 1940 Age/S: 83/F [address] [place] [address] Unit #: [id number] Loc: [place] [place] [address] Phys: Heaven Patel NP Acct: [id number] Dis Date: Status: ADM IN PHONE #: [phone] Exam Date: 07/28/2023 1011 FAX #: [phone] Reason: Emesis x2 EXAMS: CPT CODE: [id number] XR CHEST 2V 33744 EXAM: - XR CHEST 2 V CLINICAL [...] By: [email or web address] Orig Print D/T: S: 07/28/2023 (4722) PAGE 1 Signed ReportGLUCOSE [id number] 11:30:00 Test Item Value Reference Range Interpretation Comments GLUCOSE BEDSIDE (test 142 MG/DL 70-110 H Perfor med by certified code = GLUBED) 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 [facility] GLUCOSE [id number] 08:06:00 Test Item Value Reference Range Interpretation Comments GLUCOSE BEDSIDE (test 117 MG/DL 70-110 H Perfor med by certified code = GLUBED) 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 [facility] COMPREHENSIVE METABOLIC [id number] 05:58:00 Test Item Value Reference Range Interpretation [...] the recommended for bernard for GFRby the [facility] on for Adults.The GFR [...] 20-125 N TOTAL (test code = ALKP) [id number] 05:58:00 Test Item Value Reference Range Interpretation Comments MAGNESIUM (test code = 2.07 mg/dL 1.6-2.6 N NOTE: NEW NORMAL MAG) RANGE CBC W/AUTO [id number] 05:29:00 Test Item Value Reference Range Interpretation [...] 0.00 x10 3/uL 0.0-0.1 N NRBC#) GLUCOSE [id number] 20:32:00 Test Item Value Reference Range Interpretation Comments GLUCOSE BEDSIDE (test 156 MG/DL 70-110 H Perfor med by certified code = GLUBED) 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 [facility] GLUCOSE [id number] 17:11:00 Test Item Value Reference Range Interpretation Comments GLUCOSE BEDSIDE (test 115 MG/DL 70-110 H Perfor med by certified code = GLUBED) 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 [facility] 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 [id number] 12:00:00 Test Item Value Reference Range Interpretation Comments GLUCOSE BEDSIDE (test 134 MG/DL 70-110 H Perfor med by certified code = GLUBED) 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 [facility] BASIC METABOLIC [id number] 09:35:00 Test Item Value Reference Range Interpretation [...] code = 9.2 mg/dL 8.0-10.5 N CA) [id number] 09:35:00 Test Item Value Reference Range Interpretation Comments MAGNESIUM (test code = 1.87 mg/dL 1.6-2.6 N NOTE: NEW NORMAL MAG) RANGE CBC W/AUTO [id number] 09:05:00 Test Item Value Reference Range Interpretation [...] REQUIRED (test NO code = MDIFF) GLUCOSE [id number] 08:14:00 Test Item Value Reference Range Interpretation Comments GLUCOSE BEDSIDE (test 107 MG/DL 70-110 N Perfor med by certified code = GLUBED) 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 [facility] GLUCOSE [id number] 20:56:00 Test Item Value Reference Range Interpretation Comments GLUCOSE BEDSIDE (test 135 MG/DL 70-110 H Perfor med by certified code = GLUBED) 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 [facility] GLUCOSE [id number] 20:19:00 Test Item Value Reference Range Interpretation Comments GLUCOSE BEDSIDE (test 181 MG/DL 70-110 H Perfor med by certified code = GLUBED) 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 [facility] GLUCOSE [id number] 17:56:00 Test Item Value Reference Range Interpretation Comments GLUCOSE BEDSIDE (test 129 MG/DL 70-110 H Perfor med by certified code = GLUBED) 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 [facility] UA RFLX MICR CULT IF [id number] 13:06:00 Test Item Value Reference Range Interpretation [...] culture: RiskForSepsis-no oth srcSpecimen Description: CLEAN CATCHGLUCOSE [id number] 12:39:00 Test Item Value Reference Range Interpretation Comments GLUCOSE BEDSIDE (test 142 MG/DL 70-110 H Perfor med by certified code = GLUBED) 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 [facility] HGBA1C%2023-07-26 11:31:00 Test Item Value Reference Range Interpretation Comments HGBA1C% (test code = HGBA1C%) 5.4 %A1C 4.8-6.0 N - XR CHEST 2 [id number] 11:24:00 [facility] : 1940 Sex: F FAX: Heaven Patel NP [phone] Congress: St: [facility] FAX: Apolinar Banuelos MD [phone] Name: EVELYN GIBSON [facility] : 1940 Age/S: 83/F [address] [place] [address] Unit #: [id number] Loc: G.4434 [place] [address] Phys: Heaven Patel NP Acct: [id number] Dis Date: Status: ADM IN PHONE #: [phone] Exam Date: 07/26/2023 1109 FAX #: [phone] Reason: Cardiac Surgery Pre Op EXAMS: CPT CODE: [id number] XR CHEST 2 V 00837 EXAM: - XR CHEST 2 V HISTORY: [...] (1127) PAGE 1 Signed Report- DUP EXTRACRANIAL [id number] 11:12:00 [facility] : 1940 Sex: F Name: EVELYN GIBSON [facility] Cayla Ferrara : 1940 Age/S: 83 / F [address] [place] [address] Unit #: [id number] Loc: [place] [address] Phys: Heaven Patel NP Acct: [id number] Dis Date: Status: ADM IN PHONE #: [phone] Exam Date: 07/26/2023 1105 FAX #: [phone] Reason: Cardiac Surgery Pre Op EXAMS: CPT CODE: [id number] DUP EXTRACRANIAL [place] [address] EXAM: CAROTID DOPPLER INDICATION: Cardiac Surgery Pre [...] (1112) 16 Orig Print D/T: S: 07/26/2023 (7599) Probe: PAGE 1 Signed ReportCOMPREHENSIVE METABOLIC [id number] 10:47:00 Test Item Value Reference Range Interpretation [...] (test code = LDL) NEAR OPTIM AL/ABOVE XOSYHCA174-333 TKKWDLZGUA340-4 89 HIGH>BR=608 JAY Y HIGH*Guidelines provided by the National Choles terol EducationProgra m Adult Treatment Panel III [id number] 10:47:00 Test Item Value Reference Range Interpretation Comments MAGNESIUM (test code = 1.83 mg/dL 1.6-2.6 N NOTE: NEW NORMAL MAG) RANGE B-TYPE NATRIURETIC [id number] 10:45:00 Test Item Value Reference Range Interpretation Comments B-TYPE NATRIURETIC PEPTIDE (test 195.0 PG/ML 0-100 H code = BNP) PROTHROMBIN [id number] 10:36:00 Test Item Value Reference Range Interpretation [...] (to prevent recurrent infar ct). 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 Rewinder Operator: MD Rowdy Gleason MD CT surgeon: Thelma Rankin MD Anesthesia: monitored anesthesia care. Indications:Severe symptomatic aortic stenosis. Technique/Procedure:After informed consent was obtained patient was brought into the Medical Imaging Director patient was prepped and draped in sterile fashion. Left common femoral artery was accessed ultrasound guided and using micropuncture technique under fluoroscopy guidance and a 5 Eritrean sheath was inserted. The left common femoral vein was accessed using micropuncture technique and then an 8 Eritrean long sheath was inserted. The right common femoral artery was visualized by ultrasound and accessed using micropuncture technique under fluoroscopy guidancea micropuncture technique then a 6 Frenc h sheath was inserted, thne 2 Perclose were deployed, Then we placed a 14 Eritrean Bliss E sheath. Then we went with 5 Eritrean marked pigtai l from the left common [...] mm Valve Disposition: PACU at 2020 RPT #:[id number] OF REPORTOPOperative ynubyh4105-26-06P87:10:00G.QFII85085169-1809BCWd a ilable for patient xppqYIVNERLKSYDNUH4972-69-17K46:20:47 2023-08-08 15:35:00 [id number]:35:355085-[address] [address] PATIENT NAME: EVELYN GIBSON ADMIT DATE: 07/26/23ACCOUNT NO: [id number] ROOM NO: G.3396 AGE: 83 REPORT TYPE: 360 - QUERY RESPONSE DOCUMENT SEX: F ADMITTING PHYSICIAN:Apolinar Rankin MD ATTENDING PHYSICIAN:Apolinar Rankin MD Provider Query QUERY TEXT: Condition General 360MD Query relate d questions should be directed to: [facility] Virgie munroe Query Helpline [Based on your [...] PM at 1535 PATIENT NAME: EVELYN GIBSON noteG.[id number] for patient sltrNHOGUMXZMASPFQ0587-67-31T48:36:52 2023-08-05 15:43:00 [id number]:43:00 [facility] ProgREPORT#:[id number] REPORT STATUS: SignedREPORT INITIALIZATION DATE:08/05/23 TIME: 1542 PATIENT: EVELYN GIBSON UNIT #: [id number]#: [id number] ROOM/BED: 3396-1DOB: [birth year] AGE: 83 SEX: F ATTEND: Apolinar Rankin MDATIFFANIE AUTHOR: Dayna Younger PhysicREPT SERVICE DT/TIME: [...] range of motion , painless range of motionNeuro/REMELT PAN TANK OPERATOR: alert, oriented X 3Psychiatry: normal affect, normal judgment/insight Diagnosis, Assessment PlanFree Text A P:83-year-old female, PMHx HTN, diabetes on metformin, HLD, back pain, arthritis, vertigo for which she reportedly takes a Xanax, breast cancer left-sided mastectomy. Patient is transferred to us from [facility], patient of Dr. Hernández, and she reports chest pressure, burning sensation in her throat, sensation of nausea which started a few weeks ago after having a GI illness with vomiting. Patient was evaluated at [facility] for reports of chest pain, and findings of normal EKG, troponins within normal limits, BNP elevated at 1397, UA negative, chest x-ray stable, echocardiogram done with findings of severe aortic stenosis patient referred to us for TAVR evaluation. Patient reports cardiac cat h done at [facility], however, we have no report o [...] and he agrees with plan for TAVR.-TAVR libs-uy-Fhuonmnrgs scaxsfe-Alijgqjpfjej-uihvv restriction-Resume prior hospital meds 07/27/2023TAVR eval-Pending CT xbkdh-Qmvnblscogtv-vftsw restrictionLeukocytosis, afebrile, UA 1+ leukocyte Estrace. Urine [...] home today. at 1544 at 0847 RPT #:[id number] OF REPORTPRProgress rsuu3696-05-86O89:43:00G.KCVH60506558-5425CKHvau maria guadalupe able for patient wiqkGBPRVGUPQVHQFC9827-99-13D53:44:48 2023-08-05 13:19:00 [id number]:19:00 [facility] ([facility])Discharge SummaryREPORT#:[id number] REPORT STATUS: SignedREPORT INITIALIZATION DATE:08/05/23 TIME: 1319 PATIENT: EVELYN GIBSON UNIT #: [id number]#: [id number] ROOM/BED: [facility]6-1DOB: [birth year] AGE: 83 [...] inspection, no CVA tenderness, no midline vertebral tendNeuro/REMELT PAN TANK OPERATOR: alert, oriented X 3Skin: dry, intact Discharge Instructions PCPPCP:PCP: No Primary or Family Physician )( Discharge to: Home/Self Care Discharge InstructionsAdditional Discharge Routines: Attending Follow-Up, Dietetic Assistant Follow-Up)( Diet : Resume Home Diet/Feeds Follow-up AppointmentsAttending Physician: Attending Physician: Apolinar Rankin MD Typizikkrf provider 1: Provider 1: Apolinar Rankin MD Specialty: Thoracic Surgery Consult follow up timeframe: In 2-3 weeks at 1431 at 1445 RPT #:[id number] OF REPORTDSDischarge nswesvg2175-43-94A07:19:00G.BRPQ29937242-0753SBE v ailable for patient lfxeUDUJIHHXOFLZIQ3701-82-87Y56:40:06 2023-08-05 09:13:00 [id number]:13:00 [facility] ([facility])Cardiology Progress NoteREPORT#:[id number] REPORT STATUS: SignedREPOR T INITIALIZATION DATE:08/05/23 TIME: 912 PATIENT: EVELYN GIBSON UNIT #: [id number]#: [id number] [address] [birth year] AGE : 83 SEX: F [...] Right groin site: ecchymosis, hematoma (small)Musculoskeletal: normal inspectionNeuro/REMELT PAN TANK OPERATOR: alert, oriented X 3Skin: dry, intact, normal [...] % (Auto) (14.0 - 32.0 %) 17.8 Bremer % (Auto) (4.8 - 9.0 %) 11.1 H Eos % (Auto) (0.3 - 3.7 %) 2.2 Baso % (Auto) (0.0 - 2.0 %) 0.5 Neut # (Auto) (2.0 - 7.6 x10 3/uL) 6.84 Lymph # (Auto ) (1.0 - 3.8 x10 3/uL) 1.82 Bremer # (Auto) (0.1 - 0.8 x10 3/uL) [...] taper her amiodarome to 200 mg daily* WWE7HP6-ZWPu score 3, Eliquis 2.5 mg BID* EP consult * 08/04: 12 lead EKG still with LBBB* will arrange for cardiac event monitor outpatient Ok to DC home with Home health. Outpatient follow-up with Dr. Hernández. at 1010Electronically Signed by Parmjit Houser MD 08/12/23 at 1445 RPT #:[id number] OF REPORTPRProgress qdlr7424-00-89B35:13:00G.DODZ56181352-0565RESykk l able for patient mdldAPQIDHXWTQZOSB3157-25-88Z84:10:49 2023-08-04 13:37:00 [id number]:37:[id number] [place] [address] PATIENT NAME: EVELYN GIBSON ADMIT DATE: 07/26/23ACCOUNT NO: [id number] ROOM NO: G.3301 AGE: 83 REPORT TYPE: eELECTROCARDIOGRAM REPORT SEX: F ADMITTING PHYSICIAN:Apolinar Rankin MD ATTENDING PHYSICIAN:Apolinar Rankin MD Order:[id number] Reason : lbbb Test Date/Time Stamp:FriAug 04 [...] MD at 2056 PATIENT NAME: EVELYN GIBSON .[id number] AVAvailable for patient shwfBCAJQQZCANYFXX7938-22-75J79:56:43 2023-08-04 12:17:00 [id number]:17:00 [facility] HospitalCard[facility] Progress NoteREPORT#:[id number] REPORT STATUS: SignedREPOR T INITIALIZATION DATE:08/04/23 TIME: 1216 PATIENT: EVELYN GIBSON UNIT #: [id number]#: [id number] [address] AGE: 83 SEX: F ATTEND: [...] no urinary catheterLower extremity: LE assessment: no edemaNeuro/REMELT PAN TANK OPERATOR: alert, oriented X 3Skin: dry, intact, normal [...] % (Auto) (14.0 - 32.0 %) 15.7 Bremer % (Auto) (4.8 - 9.0 %) 11.1 H Eos % (Auto) (0.3 - 3.7 %) 2.0 Baso % (Auto) (0.0 - 2.0 %) 0.4 Neut # (Auto) (2.0 - 7.6 x10 3/uL) 7.92 H Lymph # (Auto) (1.0 - 3.8 x10 3/uL) 1.78 Bremer # (Auto) (0.1 - 0.8 x10 3/uL) [...] her amiodarome to 20 0 mg daily* MNY2FY9-KMGi score 3, Eliquis 2.5 mg BID* EP consult * 08/04: 12 lead EKG still with LBBB Ok to transfer out [facility] lizeth e in AM. at 1401Electronically Gina d by Parmjit Houser MD on 08/12/23 at 1443 RPT #:[id number] OF REPORTPRProgress lrop9041-61-99Y46:17:00G.LXOT73444761-0512ADCdvx l able for patient qqguVQBBMCSCFWNPKI8445-85-02I68:01:42 2023-08-04 09:28:00 [id number]:28:00 [facility] HospitalCardiothoracic Surgery ProgREPORT#:[id number] REPORT STATUS: SignedREPORT INITIALIZATION DATE:08/04/23 TIME: 927 PATIENT: EVELYN GIBSON UNIT #: [id number]#: [id number] ROOM/BED: [facility]-1DOB: [birth year] AGE: 83 SEX: F ATTEND: Apolinar [...] range of motion , painless range of motionNeuro/REMELT PAN TANK OPERATOR: alert, oriented X 3Psychiatry: normal affect, normal judgment/insight Diagnosis, Assessment PlanFree Text A P:83-year-old female, PMHx HTN, diabetes on metformin, HLD, back pain, arthritis, vertigo for which she reportedly takes a Xanax, breast cancer left-sided mastectomy. Patient is transferred to us from [facility], patient of Dr. Hernández, and she reports chest pressure, burning sensation in her throat, sensation of nausea which started a few weeks ago after having a GI illness with vomiting. Patient was evaluated at [facility] for reports of chest pain, and findings of normal EKG, troponins within normal limits, BNP elevated at 1397, UA negative, chest x-ray stable, echocardiogram done with findings of severe aortic stenosis patient referred to us for TAVR evaluation. Patient reports cardiac cat h done at [facility], however, we have no report o [...] and he agrees with plan for TAVR.-TAVR uavl-xr-Fmcffqejiz oervcyk-Bpesrgqcoyfn-dlxpu restriction-Resume prior hospital meds 07/27/2023TAVR eval-Pending CT yxtvz-Nwfktaizggwl-qsopk restrictionLeukocytosis, afebrile, UA 1+ leukocyte Estrace. Urine [...] with Cardiology and EP. at 1202 RPT #:[id number] OF REPORTPRPchelsea s vdbv8806-26-22F44:28:00G.[id number] l able for patient kgisBZUVBYJNNIVXVA6147-63-97F02:03:11 2023-08-04 09:06:00 [id number]:06:00 [facility] ([facility]) Progress NoteREPORT#:[id number] REPORT STATUS: SignedREPOR T INITIALIZATION DATE:08/04/23 TIME: 905 PATIENT: EVELYN GIBSON UNIT #: [id number]#: [id number] [address] [birth year] AGE : 83 SEX: F [...] non-tenderExtremities: dry, moves allMusculoskeletal: full range of motionNeuro/REMELT PAN TANK OPERATOR: alert, oriented X 3Skin: dry, intactTelemetry Interpretation:Sinus [...] Barney MD at 1228 at 1456 RPT #:[id number] OF REPORTPRProgress lmvt2405-00-22H83:06:00G.AGHE11825367-1969DYFeek l able for patient oaykYOKYWJYVZXEVGP6283-78-14Y52:29:04 2023-08-03 11:07:00 [id number]:07:00 [facility] ([facility])Cardiology Progress NoteREPORT#:[id number] REPORT STATUS: SignedREPOR T INITIALIZATION DATE:08/03/23 TIME: 1106 PATIENT: EVELYN GIBSON UNIT #: [id number]#: [id number] ROOM/BED: 3301-1DOB: [birth year] AGE : 83 SEX: [...] pressure on exertion she [facility] [place] she was found out to have severe aortic stenosis onthe echocardiogram. She had cardiac catheterization report but would not have access to the results. Dr. Hernández is her aligning inspector Review of SystemsRespiratory:Denies: BALBUENA (dyspne a on [...] no urinary catheterLower extremity: LE assessment: no edemaNeuro/REMELT PAN TANK OPERATOR: alert, oriented X 3Skin: dry, intact, normal [...] % (Auto) (14.0 - 32.0 %) 16.6 Bremer % (Auto) (4.8 - 9.0 %) 11.6 H Eos % (Auto) (0.3 - 3.7 %) 1.9 Baso % (Auto) (0.0 - 2.0 %) 0.3 Neut # (Auto) (2.0 - 7.6 x10 3/uL) 7.20 Lymph # (Auto) (1.0 - 3.8 x10 3/uL) 1.74 Bremer # (Auto) (0.1 - 0.8 x10 3/uL) [...] BID* Lovenox 1 mg/kg x1 dose today* XGU6IU7-JUYv score 3* EP consult * recurrent afib [...] AVOID-NO LONGER IN LBBB at 1140 RPT #:[id number] OF REPORTPRProgress sbxv2049-12-15F35:07:00G.CIRN95915207-8682SIPnww l able for patient mmagNHBNWRTHXZMBRS5143-71-94S11:41:04 2023-08-03 10:10:00 [id number]:10:00 [facility] HospitalCardiothoracic Surgery ProgREPORT#:[id number] REPORT STATUS: SignedREPORT INITIALIZATION DATE:08/03/23 TIME: 1010 PATIENT: EVELYN GIBSON UNIT #: [id number]#: [id number] [address] [birth year] AGE: 83 SEX: F ATTEND: [...] range of motion , painless range of motionNeuro/REMELT PAN TANK OPERATOR: alert, oriented X 3Psychiatry: normal affect, normal judgment/insight Diagnosis, Assessment PlanFree Text A P:83-year-old female, PMHx HTN, diabetes on metformin, HLD, back pain, arthritis, vertigo for which she reportedly takes a Xanax, breast cancer left-sided mastectomy. Patient is transferred to us from [facility], patient of Dr. Hernández, and she reports chest pressure, burning sensation in her throat, sensation of nausea which started a few weeks ago after having a GI illness with vomiting. Patient was evaluated at [facility] for reports of chest pain, and findings of normal EKG, troponins within normal limits, BNP elevated at 1397, UA negative, chest x-ray stable, echocardiogram done with findings of severe aortic stenosis patient referred to us for TAVR evaluation. Patient reports cardiac cat h done at [facility], however, we have no report o [...] and he agrees with plan for TAVR.-TAVR vrwj-lw-Rqsqhtyxwi ixodpij-Mgqdrhfnpvcm-trzlb restriction-Resume prior hospital meds 07/27/2023TAVR eval-Pending CT amhey-Ntplfocqtfqh-rvkeh restrictionLeukocytosis, afebrile, UA 1+ leukocyte Estrace. Urine [...] e supportive care. at 1012 at 0934 [facility] #:[id number] OF REPORTPRProgress wswb5334-03-17V06:10:00G.NDKB46716205-1720UVLtvn l able for patient dsgdHCCMFRAIATZMOI8244-79-59C21:12:30 2023-08-03 10:05:00 [id number]:05:258651-[address] [address] [place], [place] [address] PATIENT NAME: EVELYN GIBSON ADMIT DATE: 07/26/23ACCOUNT NO: [id number] ROOM NO: G.3301 AGE: 83 REPORT TYPE: eECHOCARDIOGRAM REPORT SEX: F ADMITTING PHYSICIAN:Apolinar Rankin MD ATTENDING PHYSICIAN:Apolinar Rankin MD * A [address], [place] [address]Ejtaz: [phone]: [phone] Limited Transthoracic Echocardiogra m Patient: Paul Gibsonudnito Date: 08/01/2023 BP: 133 / 61 Location: ODETTEN: [id number] : 1940 Age: 83 Height: 62 in / 157.5 cmAccession#: [id number] Gender: F Weight: 180.6 lb / 82. 1 kgBMI/BSA: 33.1 kg/m 2 / 1.83 m 2 *Ordering Physician: * Tabitha Herring *Interpreting Physician: * Parmjit Houser MD*Installer Helper: Edilma Maxwell - Indications: POST TAVR. - [...] ---- D Pulmonic valve Value 07/31/2023 Ref DE v, ED 0.65 m/sec 2.38 ---- Tricuspid [...] 1005 PATIENT NAME: EVELYN GIBSON :05: 0 0G.[id number] for patient ejdoIUMQIYXCJCSQBV1394-81-60L35:06:20 2023-08-02 11:49:00 [id number]:49:00 [facility] HospitalCard[facility] Progress NoteREPORT#:[id number] REPORT STATUS: SignedREPOR T INITIALIZATION DATE:08/02/23 TIME: 114 PATIENT: EVELYN GIBSON UNIT #: [id number]#: [id number] [address] [birth year] AGE : 83 SEX: F [...] pressure on exertion [facility] she was found out to have severe aortic stenosis onthe echocardiogram. She had cardiac catheterization report but would not have access to the results. Dr. Hernández is her aligning inspector Review of SystemsRespiratory:Denies: BALBUENA (dyspne a on [...] no urinary catheterLower extremity: LE assessment: no edemaNeuro/REMELT PAN TANK OPERATOR: alert, oriented X 3Skin: dry, intact, normal [...] % (Auto) (14.0 - 32.0 %) 16.6 Bremer % (Auto) (4.8 - 9.0 %) 11.6 H Eos % (Auto) (0.3 - 3.7 %) 1.9 Baso % (Auto) (0.0 - 2.0 %) 0.3 Neut # (Auto) (2.0 - 7.6 x10 3/uL) 7.20 Lymph # (Auto) (1.0 - 3.8 x10 3/uL) 1.74 Bremer # (Auto) (0.1 - 0.8 x10 3/uL) [...] BID* Lovenox 1 mg/kg x1 dose today* CWO8MN1-BJKn score 3* EP consult * recurrent afib RVR, rebolus amio, up amio gtt to 1 mg Get PT/OTMobilize OOB Keep in CCU 08/02/23:-S/P TAVR-POST OP A FIB, WAS STARTED ON IV AMIOD + BOLUS AT 8;30 AM, IN NSR-LBBB, POST TAVR, RESOLVED, UNLIKLEY NEED FOR PERMANENT PACEMAKER-CONTINUE AMIOD FOR MOW-EP FOLLOWING at 1107 RPT #:[id number] OF REPORTPRProgress teea4860-73-57H04:49:00G.[id number] maria guadalupe able for patient wogeZFJZTALCFFNTCE9823-28-16T40:08:00 2023-08-02 11:31:00 [id number]:31:00 [facility] ([facility])Clinical NoteREPORT#:[id number] REPORT STATUS: SignedREPOR T INITIALIZATION DATE:08/02/23 TIME: 1131 PATIENT: EVELYN GIBSON UNIT #: [id number]#: [id number] ROOM/BED: [facility]-1DOB: [birth year] AGE: 83 SEX: F ATTEND: Apolinar Rankin MDA DT : 07/26/23 AUTHOR: Madelyn Caballero NPREPT SERVICE DT/TIME: 08/02/23 1131* ALL edits or amendments must be made on the electronic/computer document * Clinical NoteNote:pt seen and examined - AFWV5tiro RVR converted last night with amio bolus x1. on BB/statin/plavix/eliquishemodynamically stable o n RAtolerating diet, bowel regimen with miralax/colacenegative balanceWBC count stable, afebrilewill cont to monitor peripherally. TX when cleared by CTSplease notify ICC for any critical care needs [phone] Vital Signs Haroon e Temp Pulse Resp B/P B/P Mean Pulse Ox FiO2 08/01-08/02 97.5-98.2 59-70 15-25 108-133/52-63 73-90 93-99 at 1139 RPT #:[id number] OF REPORTCLClinical [id number]:31:00G.[id number] l able for patient [id number]:39:28 2023-08-02 08:24:00 [id number] [address] PATIENT NAME: EVELYN GIBSON ADMIT DATE: 07/26/23ACCOUNT NO: [id number] ROOM NO: [facility] AGE: 83 REPORT TYPE: eELECTROCARDIOGRAM REPORT SEX: F ADMITTING PHYSICIAN:Apolinar Rankin MD ATTENDING PHYSICIAN:Apolinar Rankin MD Order:[id number] Reason : , Test Date/Romel e Stamp:FriAug [...] MD at 2126 PATIENT NAME: EVELYN GIBSON .[id number] AVAvailable for patient [id number]:26:41 2023-08-02 06:10:00 [id number]:10:00 [facility] HospitalCardiothoracic Surgery ProgREPORT#:[id number] REPORT STATUS: SignedREPORT INITIALIZATION DATE:08/02/23 TIME: 609 PATIENT: EVELYN GIBSON UNIT #: [id number]#: [id number] [address] AGE: 83 SEX: F ATTEND: [...] range of motion , painless range of motionNeuro/REMELT PAN TANK OPERATOR: alert, oriented X 3Psychiatry: normal affect, normal judgment/insight Diagnosis, Assessment PlanFree Text A P:83-year-old female, PMHx HTN, diabetes on metformin, HLD, back pain, arthritis, vertigo for which she reportedly takes a Xanax, breast cancer left-sided mastectomy. Patient is transferred to us from [facility], patient of Dr. Hernández, and she reports chest pressure, burning sensation in her throat, sensation of nausea which started a few weeks ago after having a GI illness with vomiting. Patient was evaluated at [facility] for reports of chest pain, and findings of normal EKG, troponins within normal limits, BNP elevated at 1397, UA negative, chest x-ray stable, echocardiogram done with findings of severe aortic stenosis patient referred to us for TAVR evaluation. Patient reports cardiac cat h done at [facility], however, we have no report o [...] and he agrees with plan for TAVR.-TAVR ewfl-sn-Wgkckqjvzi gapirxk-Widdddppomxp-ypbsn restriction-Resume prior hospital meds 07/27/2023TAVR eval-Pending CT hkvlp-Kzvwvebcnfwo-yrozw restrictionLeukocytosis, afebrile, UA 1+ leukocyte Estrace. Urine [...] rhythm managementContinue supportive care. at 0842 RPT #:[id number] OF REPORTPRProgress xgto2776-47-51G46:10:00G.[id number] maria guadalupe able for patient gjalMTYJCBLMOJYGNO5641-23-40D97:42:30 2023-08-01 09:31:00 [id number]:31:[id number] [facility] [place] [address] PATIENT NAME: EVELYN GIBSON ADMIT DATE: 07/26/23ACCOUNT NO: [id number] ROOM NO: [facility] AGE: 83 REPORT TYPE: eELECTROCARDIOGRAM REPORT SEX: F ADMITTING PHYSICIAN:Apolinar Rankin MD ATTENDING PHYSICIAN:Apolinar Rankin MD Order:[id number] Reason : AFIB RVR Test Date/Time Stamp:FriAug [...] by:KORTNEY FRANKS MD at 2102 PATIENT NAME: EVELYN GIBSON .[id number] AVAvailable for patient ibzpADLJKYIFRHQXPN8903-27-14L80:02:22 2023-08-01 09:30:00 [id number]:30:00 [facility] HospitalCardiothoracic Surgery ProgREPORT#:[id number] REPORT STATUS: SignedREPORT INITIALIZATION DATE:08/01/23 TIME: 929 PATIENT: EVELYN GIBSON UNIT #: [id number]#: [id number] [address] AGE: 83 SEX: F ATTEND: [...] range of motion , painless range of motionNeuro/REMELT PAN TANK OPERATOR: alert, oriented X 3Psychiatry: normal affect, normal judgment/insight Diagnosis, Assessment PlanFree Text A P:83-year-old female, PMHx HTN, diabetes on metformin, HLD, back pain, arthritis, vertigo for which she reportedly takes a Xanax, breast cancer left-sided mastectomy. Patient is transferred to us from [facility], patient of Dr. Hernández, and she reports chest pressure, burning sensation in her throat, sensation of nausea which started a few weeks ago after having a GI illness with vomiting. Patient was evaluated at [facility] for reports of chest pain, and findings of normal EKG, troponins within normal limits, BNP elevated at 1397, UA negative, chest x-ray stable, echocardiogram done with findings of severe aortic stenosis patient referred to us for TAVR evaluation. Patient reports cardiac cat h done at [facility], however, we have no report o [...] and he agrees with plan for TAVR.-TAVR gdkp-gv-Qzbtmhhbmk lfsvhqw-Ydiekoiwileo-wxotp restriction-Resume prior hospital meds 07/27/2023TAVR eval-Pending CT hishi-Sznsjljmclkl-aursy restrictionLeukocytosis, afebrile, UA 1+ leukocyte Estrace. Urine [...] done. Continue supportive care at 0933 RPT #:[id number] OF REPORTPRProgress rpkv3859-60-03A46:30:00G.FMAA54413367-1409UQIctb l able for patient qznzZTTBCNZGVINNBP2442-65-04K43:34:08 2023-08-01 09:29:00 [id number]:29:[id number] [facility] [address] [address] PATIENT NAME: EVELYN GIBSON ADMIT DATE: 07/26/23ACCOUNT NO: [id number] ROOM NO: 330 AGE: 83 REPORT TYPE: eECHOCARDIOGRAM REPORT SEX: F ADMITTING PHYSICIAN:Erika Rankin MD ATTENDING PHYSICIAN:Apolinar Rankin MD * A [address] [address]Xqrfr: [phone]: [phone] Transthoracic Echocardiogram Patient: Gareth Gibson Date: 07/31/2023 BP: 117 / 57 Location: NATIRN: [id number] : 1940 Age: 83 Height: 61 in / 154.9 cmAccession#: [id number] Gender: F Weight: 180.6 lb / 82.1 kgBMI/BSA: 34.2 kg/m 2 / 1.92 m 2 *Ordering Physician: * Kameron Degroot NP *Interpreting Physician: * Parmjit Houser MD*Installer Helper: * Katie Heredia [facility] - Indications: S/P TAVR. - Study data: Transthoracic echocardiogram. Procedure: Transthoracicechocardiography was performed. Images were obtained using a [employer] cardiacTopiorasCorventis d machine. Image quality was good. Complete 2D, completespectral Doppler, and color Doppler. Location: CCU Patient status:Inpatient. Patient room number: 3301. Study status: [facility]. - Findings Left ventricle: The cavity [...] cm/m 2 2.8 ---- major ax, A4C ENID/bsa 3.2 cm/m 2 2.8 ---- minor ax, [...] ---- ratio Pulmonic valve Value 07/30/2023 Ref DE v, ED 2.38 m/sec 0.62 ---- DE grad, 23 mm Hg ---- ED Aortic [...] 0929 PATIENT NAME: EVELYN GIBSON :29: 0 0G.[id number] for patient lzhaBUBTBFXWKHYCVP2414-20-61O71:29:58 2023-08-01 09:27:00 [id number]:27:00 [facility] ([facility])EP Consultation NoteREPORT#:[id number] REPORT STATUS: SignedREPOR T INITIALIZATION DATE:08/01/23 TIME: 926 PATIENT: EVELYN GIBSON UNIT #: [id number]#: [id number] [address] AGE : 83 SEX: F ATTEND: Apolinar Rankin AUTHOR: Roberto Sahni NPREPT SERVICE DT/TIME: 08/01/23926* ALL edits or amendments must be made on the electronic/computer document * History of Present IllnessRequesting clinician : Dr. Adknis for consult:AnticoagulationChief complaint:Palpitations, shortness of breathHPI:This is [...] non-tenderExtremities: dry, moves allMusculoskeletal: full range of motionNeuro/REMELT PAN TANK OPERATOR: alert, oriented X 3Skin: dry, intactTelemetry Interpretation:Sinus rhythm Diagnosis, Assessment PlanFree Text A P:1. Paroxysmal Atrial Fibrillation with RVRThe patient is currently sinus rhythm and is on amiodarone.Amiodarone drip can be completed as she is PO dosing along with a beta woody.Echocardiogram reviewed, left atrium is not dilated.Her Pio0iflz score is 5 and will nee d intermediate anticoagulation.HASBLEd score is 2 so she is in the moderate range but no high.We woul d recommend Eliquis along with plavix given recent TAVR valve implant.Anticoagulation discussed wit h Cardiology.Patient did mention a mechanical fall one time early this year but no recurrent falls.Discussed risks/benefits/alternatives and patient agrees with anticoagulation. 2. Severe Aortic StenosisS/p TAVR procedure, management by CTS/Cardiology.Recovering.QCF4BL2-OWQq Score ATB2HE2-AOPs Score Response Value CHF: No 0 HTN: [...] with: patient at 1409 at 2100 RPT #:[id number] OF REPORTWEPefbmytexddp6842-13-31H21:27:00G.PDOC 2 [id number] for patient wlwcXGBMWAOHVAKDZT6424-86-63T92:10:09 2023-08-01 08:22:00 [id number]:22:00 [facility] ([facility])Cardiology Progress NoteREPORT#:[id number] REPORT STATUS: SignedREPOR T INITIALIZATION DATE:08/01/23 TIME: 821 PATIENT: EVELYN GIBSON UNIT #: [id number]#: [id number] [address] AGE : 83 SEX: F [...] no urinary catheterLower extremity: LE assessment: no edemaNeuro/REMELT PAN TANK OPERATOR: alert, oriented X 3Skin: dry, intact, normal [...] (Auto) (14.0 - 32.0 %) 11.3 L Bremer % (Auto) (4.8 - 9.0 %) 11.3 H Eos % (Auto) (0.3 - 3.7 %) 1.2 Baso % (Auto) (0.0 - 2.0 %) 0.3 Neut # (Auto) (2.0 - 7. 6 x10 3/uL) 10.32 H Lymph # (Auto) (1.0 - 3.8 x10 3/uL) 1.55 Bremer # (Auto) (0.1 - 0.8 x10 3/uL) [...] BID* Lovenox 1 mg/kg x1 dose today* OJL4TU9-WLQm score 3* EP consult * recurrent afib RVR, rebolus amio, up amio gtt to 1 mg Get PT/OTMobilize OOB Keep in CCU at 0910 at 1441 RPT #:[id number] OF REPORTPRProgress nezg2490-60-66E88:22:00G.MWVI49453833-3789XOTwzb l able for patient xrkaGXOTRKMSKMETNN4400-04-14P88:10:14 2023-07-31 11:42:00 [id number]:42:00 [facility] ([facility])Structural Heart Post ProgressREPORT#:[id number] REPORT STATUS: SignedREPORT INITIALIZATION DATE:07/31/23 TIME: 1142 PATIENT: EVELYN GIBSON UNIT #: [id number]#: [id number] [address] AGE: 83 SEX: F ATTEND: Apolinar Rankin [facility] AUTHOR: Roberto Sahni NPREPT SERVICE DT/TIME: 07/31/23 1142* ALL edits or amendments must be made on th e electronic/computer document * History of Presen t Illness HPIReferring aligning inspector:Dr. Hernández/Tremaine date: 07/30/23TAVR procedure: Valve type: Bliss [...] Hydralazine HCl (APRESOLINE) 5 MG PACU Q10MIN DE N PRN IV (DC) Hydrocodone Bitart/Acetaminophen (NORCO 5/325) 1 TAB PACU ONCE PO (DC) Hydromorphone HCl (DILAUDID) 1 MG PACU Q10MIN DE N PRN IV (DC) Hydromorphone HCl (DILAUDID) [...] painless range of motion, straight leg raise negNeuro/REMELT PAN TANK OPERATOR: alert, oriented X 3, CNII-XII intact, NL cerebellar functionSkin: dry Diagnosis, Assessment Plan Diagnosis, Assessment PlanFree Text A P:1. Severe Symptomatic Aortic StenosisPatient underwent successful Bliss Ventura S3 23mm Valve.Continue aspirin and plavix [...] is managing. 3. HypertensionBlood pressures are reasonable. DGD7KC9-UMQx Score: UQV9VZ8-WAVi Score: Response Value CHF: Yes 1 HTN: Yes 1 age greater than 75 years: Yes 2 age between 65 and 74 yrs: No 0 hx stroke, TIA, or TE: No 0 vascula r disease: No 0 diabetes mellitus: Yes 1 female: Yes 1 Total 6 at 1202 RPT #:[id number] OF REPORTPRProgress mmzz6261-67-45L76:42:00G.DREE70450648-4938QUYway l able for patient qhasYRTFCVYPWLDZXB1791-07-03G78:02:37 2023-07-31 10:18:00 [id number]:18:[id number] [place] [address] PATIENT NAME: EVELYN GIBSON ADMIT DATE: 07/26/23ACCOUNT NO: [id number] ROOM NO: [facility] AGE: 83 REPORT TYPE: eELECTROCARDIOGRAM REPORT SEX: F ADMITTING PHYSICIAN:Apolinar Rankin MD ATTENDING PHYSICIAN:Apolinar Rankin MD Order:[id number] Reason : , Test Date/Romel e Stamp:FriJul [...] Apolinar Rankin Confirmed by:KORTNEY FRANKS MD at 0959 PATIENT NAME: EVELYN GIBSON .[id number] AVAvailable for patient oegiGNUESDKDCMUABF5758-62-93S01:19:01 2023-07-31 10:10:00 [id number]:10:00 [facility] ([facility])Cardiology Progress NoteREPORT#:[id number] REPORT STATUS: SignedREPOR T INITIALIZATION DATE:07/31/23 TIME: 1010 PATIENT: EVELYN GIBSON UNIT #: [id number]#: [id number] [address] AGE : 83 SEX: F [...] Hydralazine HCl (APRESOLINE) 5 MG PACU Q10MIN DE N PRN IV (DC) Hydrocodone Bitart/Acetaminophen (NORCO 5/325) 1 TAB PACU ONCE PO (DC) Hydromorphone HCl (DILAUDID) 1 MG PACU Q10MIN DE N PRN IV (DC) Hydromorphone HCl (DILAUDID) [...] no urinary catheterLower extremity: LE assessment: no edemaNeuro/REMELT PAN TANK OPERATOR: alert, oriented X 3Skin: dry, intact, normal [...] (Auto) (14.0 - 32.0 %) 10.8 L Bremer % (Auto) (4.8 - 9.0 %) 11.0 H Eos % (Auto) (0.3 - 3.7 %) 0.6 Baso % (Auto) (0.0 - 2.0 %) 0.3 Neut # (Auto) (2.0 - 7. 6 x10 3/uL) 11.78 H Lymph # (Auto) (1.0 - 3.8 x10 3/uL) 1.66 Bremer # (Auto) (0.1 - 0.8 x10 3/uL) [...] rev'dTelemetry Interpretation:afib then converted to sinus Scores DBR9ML6-YFQe KyjefGWQ0AF0-WKKs Score SZB3TS1-OYHl Score Response Value age greater than 75 [...] mg BID* Lovenox 1 mg/kg x1 dose* UXF7NK1-JPDs score 3 Get PT/OTMobilize OOB at 1616Electronically Signed by Parmjit Houser MD 08/12/23 at 1438 RPT #:[id number] OF REPORTPRProgress cqwp9558-12-48P47:10:00G.HXTU97550792-7830KPSndi l able for patient vqbxQBTUMTBQCDVWTJ3105-56-21S27:17:05 2023-07-31 08:16:00 [id number]:16:00 [facility] ([facility])Cardiothoracic Surgery ProgREPORT#:[id number] REPORT STATUS: SignedREPORT INITIALIZATION DATE:07/31/23 TIME: 815 PATIENT: EVELYN GIBSON UNIT #: [id number]#: [id number] [address] AGE: 83 SEX: F ATTEND: [...] range of motion , painless range of motionNeuro/REMELT PAN TANK OPERATOR: alert, oriented X 3Psychiatry: normal affect, normal judgment/insight Diagnosis, Assessment PlanFree Text A P:83-year-old female, PMHx HTN, diabetes on metformin, HLD, back pain, arthritis, vertigo for which she reportedly takes a Xanax, breast cancer left-sided mastectomy. Patient is transferred to us from [facility], patient of Dr. Hernández, and she reports chest pressure, burning sensation in her throat, sensation of nausea which started a few weeks ago after having a GI illness with vomiting. Patient was evaluated at [facility] for reports of chest pain, and findings of normal EKG, troponins within normal limits, BNP elevated at 1397, UA negative, chest x-ray stable, echocardiogram done with findings of severe aortic stenosis patient referred to us for TAVR evaluation. Patient reports cardiac cat h done at [facility], however, we have no report o [...] and he agrees with plan for TAVR.-TAVR fqje-vd-Tiwxapyrbi hjerbid-Jqljooryhnxf-kzech restriction-Resume prior hospital meds 07/27/2023TAVR eval-Pending CT kfjbf-Hgsvnhumipsb-gkiss restrictionLeukocytosis, afebrile, UA 1+ leukocyte Estrace. Urine [...] Dr Rankin. at 0821 at 0610 RPT #:[id number] OF REPORTPRProgress kyqs5238-48-95M46:16:00G.PCYE28479048-7366ESYbsp l able for patient phmuVTHUGTWNXUHXRP9918-69-13N30:21:49 2023-07-31 07:31:00 [id number]:31:[id number] [address] PATIENT NAME: EVELYN GIBSON ADMIT DATE: 07/26/23ACCOUNT NO: [id number] ROOM NO: G.3301 AGE: 83 REPORT TYPE: eELECTROCARDIOGRAM REPORT SEX: F ADMITTING PHYSICIAN:Apolinar Rankin MD ATTENDING PHYSICIAN:Apolinar Rankin MD Order:[id number] Reason : Post PCI Test Date/Time Stamp:FriJul [...] MD at 1718 PATIENT NAME: EVELYN GIBSON .[id number] AVAvailable for patient veuvLUKONZKULBZQIO9534-60-15T23:18:41 2023-07-30 21:09:00 [id number]:09:00 [facility] HospitalDT Operative NoteREPORT#:[id number] REPORT STATUS: SignedREPOR T INITIALIZATION DATE:07/30/23 TIME: 2108 PATIENT: EVELYN GIBSON UNIT #: [id number]#: [id number] [address] AGE : 83 SEX: F [...] femoral artery 5. Completion angiogram Surgeon: Toño Rankin MD Rewinder Operator: MD Lissa Ruiz MD Anaesthesia: MAC Estimated [...] by Dr. Garcia as he was the assembler gold frame. The patient was brought into the hybrid [...] instrument count were correct. at 2113 RPT #:[id number] OF REPORTOPOperative zxzxas4204-20-26K11:09:00G.BNBM53962656-5879MRJs a ilable for patient pdrkAQXLPQJULFDTRA9826-54-06U29:13:50 2023-07-30 18:29:00 [id number]:29:[id number] [facility] [place] [address] PATIENT NAME: EVELYN GIBSON ADMIT DATE: 07/26/23ACCOUNT NO: [id number] ROOM NO: 3396 AGE: 83 REPORT TYPE: CARDIAC CATHETERIZATION REPORT SEX: F ADMITTING PHYSICIAN:Apolinar Rankin MD ATTENDING PHYSICIAN:Apolinar Rankin MD PROCEDURE DATE: 07/30/2023 INDICATION: Symptomatic severe aortic stenosis. CLINICAL HISTORY: A very pleasant 83-year-old female patient transferred from [place] with symptomatic critical aortic stenosi s with [...] but not limited to risk of , MT, CVA, vascular and renal injur y and was willing to proceed. PROCEDURES:1. A 14-Eritrean right femoral arterial access.2. Statu s post transcatheter aortic valve replacement with a 23-mm Bliss Ventura Ultra valve with excellen t echocardiographic and angiographic results.3. An 8-Eritrean left femoral venous access.4. Status post temporary venous pacemaker.5. A 5-Eritrean left femoral arterial access.6. Status post ProGlide closure of all arteriotomies and venotomies with excellent hemostasis. COMPLICATIONS: None. ESTIMATED BLOOD LOSS: Less than 10 mL. ANESTHESIA: MAC. OPERATORS:1. Rowdy Crum MD.2. Parmjit Houser MD CT SURGEON: Cat Rankin MD PROCEDURE IN DETAIL: Both groins were prepped and draped in the usual sterile fashion. Local anesthesia was administered. A 5-Eritrean sheath was placed in th e left femoral artery using ultrasound-guided access. An 8-Eritrean sheath was placed in the lef t femoral vein and then a 6-Eritrean sheath was placed in the right femoral artery. Two ProGlide sutures were deployed in the form of the Preclosure and then the 14-Eritrean Bliss sheath was advanced over a J [...] up. No focal neurological deficits. Dictated By: Rodwy Crum MD Date Dictated: 07/30/2023 18:29:23Date Transcribed: 07/30/2023 22:37:57LANDON/JULIA/Judy #: [id number] ID: [id number] by Rowdy Crum MD On 08/05/2023 11:15:46 PM at 1115 PATIENT NAME: EVELYN GIBSON lgaf9432-24-37H11:37:00G.TUL07898815-9837DDPddmr a ble for patient orzhMPDSYVUVHHCXCN0980-17-05W31:16:24 2023-07-30 18:12:00 [id number]:12:00 [facility] ([facility])Cardiology Progress NoteREPORT#:[id number] REPORT STATUS: SignedREPOR T INITIALIZATION DATE:07/30/23 TIME: 1811 PATIENT: EVELYN GIBSON UNIT #: [id number]#: [id number] [address] AGE : 83 SEX: F [...] (SUBLIMAZE) 0 .STK-MED ONE .ROUTE (DC) Rocuronium [place] (ZEMURON) 0 .STK-MED ONE IV (DC) Cefazolin [...] no bleeding Right groin site: intact, no bleedingNeuro/REMELT PAN TANK OPERATOR: alert, oriented X 3Skin: dry, intact, normal [...] INR (0.8 - 1.2) 1.0 1.1 PTT (Jenkins) (25.0 - 39.5 Seconds) 40.3 H PT [...] % (Auto) (14.0 - 32.0 %) 17.5 Bremer % (Auto) (4.8 - 9.0 %) 11.1 H Eos % (Auto) (0.3 - 3.7 %) 0.8 Baso % (Auto) (0.0 - 2.0 %) 0.3 Neut # (Auto) (2.0 - 7.6 x10 3/uL) 7.63 H Lymph # (Auto) (1.0 - 3.8 x10 3/uL) 1.92 Bremer # (Auto) (0.1 - 0.8 x10 3/uL) [...] # Hyponatremia* NA 129 at 1419 RPT #:[id number] OF REPORTPRProgress facg8363-13-13T92:12:00G.HBIN21043713-6994JGEwyn l able for patient dukvOHUYBBZKRKEUBG4720-99-17O77:19:49 2023-07-30 18:07:00 [id number]:07:[id number] [facility] [place] [address] PATIENT NAME: EVELYN GIBSON ADMIT DATE: 07/26/23ACCOUNT NO: [id number] ROOM NO: [facility] AGE: 83 REPORT TYPE: eECHOCARDIOGRAM REPORT SEX: F ADMITTING PHYSICIAN:Apolinar Rankin MD ATTENDING PHYSICIAN:Apolinar Rankin MD * [place], [place] [address]Phone: Fem: [phone] Limited Transthoracic Echocardiogra m Patient: Paul Gibsonudy Date: 07/30/2023 BP: 127 / 60 Location: COCCLURN: [id number] : 1940 Age: 83 Height: 62 in / 157.5 cmAccession#: [id number] Gender: F Weight: 180.6 lb / 82.1 kgBMI/BSA: 33.1 kg/m 2 / 1.83 m 2 *Ordering Physician: * Parmjit Houser MD *Interpreting Physician: * Parmjit Houser MD*Installer Helper: * LavonKatie gonzales [facility] - Indications: TAVR. - Study data: Transthoracic echocardiogram, limited study. Procedure:Transthoracic echocardiography was performed. Images were obtained usinga Stam[employer] c ultrasound machine. Image quality was good. [...] 0.53 ---- Pulmonic valve Value 07/27/2023 Ref DE v, ED 0.62 m/sec 0.64 ---- Tricuspid [...] 1807 PATIENT NAME: EVELYN GIBSON :07: 0 0G.[id number] for patient nmnbXEPVVLZHPNTBMQ3293-05-99M34:08:22 2023-07-30 16:08:00 [id number]:08:00 [facility] HospitalClinical NoteREPORT#:[id number] REPORT STATUS: SignedREPOR T INITIALIZATION DATE:07/30/23 TIME: 1607 PATIENT: EVELYN GIBSON UNIT #: [id number]#: [id number] [address] AGE : 83 SEX: F [...] Awake/alert and able to make needs known. JDV687-877-5366 at 1610 RPT #:[id number] OF REPORTCLClinical qzyp2858-08-88F19:08:00G.JSRG37005392-5203XYUmxg maria guadalupe able for patient omcySWNXLRKLSYPBFC8238-25-43C44:10:29 2023-07-30 09:14:00 [id number]:14:[id number] [facility] [place] [address] PATIENT NAME: EVELYN GIBSON ADMIT DATE: 07/26/23ACCOUNT NO: [id number] ROOM NO: 330 AGE: 83 REPORT TYPE: eELECTROCARDIOGRAM REPORT SEX: F ADMITTING PHYSICIAN:Apolinar Rankin MD ATTENDING PHYSICIAN:Apolinar Rankin MD Order:[id number] Reason : S/PTAVR Test Date/Time Stamp:FriJul 30 [...] Apolinar Rankin Confirmed by:KORTNEY FRANKS MD at 5631 PATIENT NAME: EVELYN GIBSON .[id number] AVAvailable for patient ikpnCXTTJHSHJTGGUI3684-85-47G29:33:04 2023-07-29 11:52:00 [id number]:52:00 [facility] ([facility])Cardiology Progress NoteREPORT#:[id number] REPORT STATUS: SignedREPOR T INITIALIZATION DATE:07/29/23 TIME: 1151 PATIENT: EVELYN GIBSON UNIT #: [id number]#: [id number] [address] AGE : 83 SEX: F [...] Alprazolam (XANAX 0.25) 0.5 MG Q8H PRN DE N PO Insulin Human Lispro (HUMALOG) 0 [...] no urinary catheterLower extremity: LE assessment: no edemaNeuro/REMELT PAN TANK OPERATOR: alert, oriented X 3Skin: dry, intact, normal [...] % (Auto) (14.0 - 32.0 %) 16.5 Bremer % (Auto) (4.8 - 9.0 %) 11.4 H Eos % (Auto) (0.3 - 3.7 %) 0.6 Baso % (Auto) (0.0 - 2.0 %) 0. 3 Neut # (Auto) (2.0 - 7.6 x10 3/uL) 8.70 H Lymph # (Auto) (1.0 - 3.8 x10 3/uL) 2.03 Bremer # (Auto) (0.1 - 0.8 x10 3/uL) [...] Dr. Houser. at 1755 at 1427 RPT #:[id number] OF REPORTPRProgress xdxl8837-35-95Q32:52:00G.OZVJ90740559-6727CZKekz l able for patient ywyvOBETZIRJIUXJDM2723-02-79S62:56:19 2023-07-28 13:25:00 [id number]:25:00 [facility] HospitalCardiology Progress NoteREPORT#:[id number] REPORT STATUS: SignedREPOR T INITIALIZATION DATE:07/28/23 TIME: 132 PATIENT: EVELYN GIBSON UNIT #: [id number]#: [id number] [address] AGE : 83 SEX: F [...] to auscultationAbdomen: softLower extremity: LE assessment: no edemaNeuro/REMELT PAN TANK OPERATOR: alert, oriented X 3Psychiatry: normal affect, normal [...] (Auto) (14.0 - 32.0 %) 12.8 L Bremer % (Auto) (4.8 - 9.0 %) 10.8 H Eos % (Auto) (0.3 - 3.7 %) 0.2 L Baso % (Auto) (0.0 - 2.0 %) 0.2 Cassandra t # (Auto) (2.0 - 7.6 x10 3/uL) 12.09 H Lymph # (Auto) (1.0 - 3.8 x10 3/uL) 2.04 Bremer # (Auto) (0.1 - 0.8 x10 3/uL) [...] in valve conference tomorrow at 1423 RPT #:[id number] OF REPORTPRProgress [id number]:25:00G.[id number] l [facility] [id number]:23:30 2023-07-28 12:52:00 [id number]:52:00 [facility] ([facility])Structural Heart Post ProgressREPORT#:[id number] REPORT STATUS: SignedREPORT INITIALIZATION DATE:07/28/23 TIME: 1252 PATIENT: EVELYN GIBSON UNIT #: [id number]#: [id number] [address] AGE: 83 SEX: F ATTEND: [...] ALLERGY ) (NAUSEA/VOMITING 07/26/23) at 1253 RPT #:[id number] OF REPORTPRProgress [id number]:52:00G.[id number] maria guadal[facility] patient [id number]:53:31 2023-07-27 12:56:00 [id number]:56:00 [facility] ProgREPORT#:[id number] REPORT STATUS: SignedREPORT INITIALIZATION DATE:07/27/23 TIME: 1256 PATIENT: EVELYN GIBSON UNIT #: [id number]#: [id number] [address] AGE: 83 SEX: F ATTEND: [...] range of motion , painless range of motionNeuro/REMELT PAN TANK OPERATOR: alert, oriented X 3Psychiatry: normal affect, normal [...] (Auto) (1.0 - 3.8 x10 3/uL) 1.81 Bremer # (Auto) (0.1 - 0.8 x10 3/uL) [...] mastectomy. Patient is transferred to us from [facility], patient of Dr. Hernández, and she reports chest pressure, burning sensation in her throat, sensation of nausea which started a few weeks ago after havin g a GI illness with vomiting. Patient was evaluate d at [facility] for reports of chest pain, and findings of normal EKG, troponins within normal limits, BNP elevated at 1397, UA negative, chest x-ray stable, echocardiogram don e with findings of severe aortic stenosis patient referred to us for TAVR evaluation. Patient reports cardiac cath done at [facility], however , we have no report [...] and he agrees with plan for TAVR.-TAVR xkbe-jh-Orgtrxmxfn yoctpbu-Glovcsixtcxe-ojolq restriction-Resume prior hospital meds 07/27/2023TAVR eval-Pending CT cdjrh-Igmsdpomkiro-thwuq restrictionLeukocytosis , afebrile, UA 1+ leukocyte Estrace. Urine culture pending. Empiric bactrimPatient with choking episode on food today, patient states as she did not have her dentures in. -- -Pur ed diet, chest x-rayDiscussed with Dr. Rankin at 1312 at 0575 RPT #:[id number] OF REPORTPRProgress dpnk9625-45-78F48:56:00G.[id number] l able for patient piapLTPNNOGHPCABSO0752-93-15D29:12:49 2023-07-27 11:18:00 [id number]:18:00 [facility] ([facility])Cardiology Progress NoteREPORT#:[id number] REPORT STATUS: SignedREPOR T INITIALIZATION DATE:07/27/23 TIME: 111 PATIENT: EVELYN GIBSON UNIT #: [id number]#: [id number] RO[address]DOB: [birth year] AGE : 83 SEX: F [...] to auscultationAbdomen: softLower extremity: LE assessment: no edemaNeuro/REMELT PAN TANK OPERATOR: alert, oriented X 3 Diagnosis, Assessment Plan [...] by Dr. Crum at 1122 at 1642 [facility] #:[id number] OF REPORTPRProgress iplp1239-50-04D69:18:00G.[id number] maria guadalupe able for patient stmbVFAJHPRMREHQKQ0630-77-16S43:23:09 2023-07-27 10:31:00 [id number]:31:[id number] [facility] [place] [address] PATIENT NAME: EVELYN GIBSON ADMIT DATE: 07/26/23ACCOUNT NO: [id number] ROOM NO: [id number] AGE: 83 REPORT TYPE: eECHOCARDIOGRAM REPORT SEX: F ADMITTING PHYSICIAN:Erika Rankin MD ATTENDING PHYSICIAN:Apolinar Rankin MD * [place], [place] [address]Phone: Bep: [phone] Transthoracic Echocardiogram Patient: Paul Gibsonudy Date: 07/27/2023 BP: 106 / 53 Location: COCCLURN: [id number] : 1940 Age: 83 Height: 63 in / 160 cmAccession#: [id number] Gender: F Weight: 186.6 lb / 84. 8 kgBMI/BSA: 33.1 kg/m 2 / 1.88 m 2 *Ordering Physician: * Heaven Patel *Interpreting Physician: * Rowdy Crum MD*Installer Helper: * Latoya Gonzalez - Indications: Cardiac surgery [...] cm 2 --------- Pulmonic valve Value Ref DE v, ED 0.64 m/sec --------- Tricuspid valve [...] 1031 PATIENT NAME: EVELYN GIBSON :31: 0 0G.[id number] for patient wxmlRRGOTEJPUCHLOI6295-96-47I65:31:44 2023-07-26 15:24:00 [id number]:24:00 [facility] ([facility]Cardiology ConsultationREPORT#:[id number] REPORT STATUS: SignedREPORT INITIALIZATION DATE:07/26/23 TIME: 1523 PATIENT: EVELYN GIBSON UNIT #: [id number]#: [id number] [address] [birth year] AGE: 83 SEX: F ATTEND: [...] pressure on exertion [facility] after she was found out to have severe aortic stenosis onthe echocardiogram. She had cardiac catheterization report but would not have access to the results. Dr. Hernández is her aligning inspector History - Adult longitudinalSmoking status for patients [...] (Auto) (14.0 - 32.0 %) 11.8 L Bremer % (Auto) (4.8 - 9.0 %) 8.5 Eos % (Auto) (0.3 - 3.7 %) 0.4 Baso % (Auto) (0.0 - 2.0 %) 0.2 Neut # (Auto) (2.0 - 7.6 x10 3/uL) 9.50 H Lymph # (Auto) (1.0 - 3.8 x10 3/uL) 1.43 Bremer # (Auto) (0.1 - 0.8 x10 3/uL) [...] (5.0 - 7.0 ) 5.0 Ur Specific Hyrum (1.005 - 1.030) 1.017 Urine Protein (NEGATIVE) [...] f hemodynamically significant (greater than50%) stenosis. LOCATION: Y2Sldqtyvgrb By: Remington - Tammie Francis M.D.RADIOLOGY - [...] valve conference on Friday at 1527 RPT #:[id number] OF REPORTXVPlovcrtdvwqr4515-31-85Y65:24:00G.PDOC 2 [id number] for patient ygqrTWRTWRJDHUJMMM3136-36-38X86:27:26 2023-07-26 11:38:00 [id number]:38:00 [facility] ([facility])History Physical - AdultREPORT#:[id number] REPORT STATUS: SignedREPORT INITIALIZATION DATE:07/26/23 TIME: 1137 PATIENT: EVELYN GIBSON UNIT #: [id number]#: [id number] [address] [birth year] AGE: 83 SEX: F ATTEND: [...] mastectomy. Patient is transferred to us from [facility], patient of Dr. Hernández, and she reports chest pressure, burning sensation in her throat, sensation of nausea which started a few weeks ago after having a GI illness withvomiting . Patient was evaluated at [facility] for reports of chest pain, and [...] motionMusculoskeletal: full rang e of motion, normal inspectionNeuro/REMELT PAN TANK OPERATOR: alert, oriented X 3Skin: dry, intact, no [...] INR (0.8 - 1.2) 1. 1 PTT (Jenkins) (25.0 - 39.5 Seconds) 35.2 PT Patient/Control [...] (Auto) (14.0 - 32.0 %) 11.8 L Bremer % (Auto) (4.8 - 9.0 %) 8.5 Eos % (Auto) (0.3 - 3.7 %) 0.4 Baso % (Auto) (0.0 - 2.0 %) 0.2 Neut # (Auto) (2.0 - 7.6 x10 3/uL) 9.50 H Lymph # (Auto ) (1.0 - 3.8 x10 3/uL) 1.43 Bremer # (Auto) (0.1 - 0.8 x10 3/uL) [...] of hemodynamically significant (greater than50%) stenosis. LOCATION: I5Mmgicwmvwh By: 16 - Tammie Francis M.D.RADIOLOGY - [...] Active TAVR Nurse Consult 07/26 0845 Active Rewinder Operator Physician Cons. 07/26 0844 Active Resuscitation Status [...] mastectomy. Patient is transferred to us from [facility], patient of Dr. Hernández, and she reports chest pressure, burning sensation in her throat, sensation of nausea which started a few weeks ago after having a GI illness with vomiting. Patient was evaluated at [facility] for reports of chest pain, and findings of normal EKG, troponins within normal limits, BNP elevated at 1397, UA negative, chest x-ray stable, echocardiogram done with findings of severe aortic stenosis patient referred to us for TAVR evaluation. Patient reports cardiac cat h done at [facility], however, we have no report o f cardiac cath and no CD with echo or heart cath findings. Assessment:Aortic stenosis, TAVR evalHTNDiabetesHyponatremia Patient seen and evaluated by Dr. Rankin and he agrees with plan for TAVR.-TAVR rlmh-bn-Kfbpoobtsw indpwzo-Vnngadxerqur-fdocl restriction-Resume prior hospital [facility] Apolinar Rankin 08/09/23 0828:Attestations Physician AttestationAgree [...] the kind consult. at 1204 at 0846 [facility] #:[id number] OF REPORTHPHistory and physical pegvhabjpof3980-77-21F40:38:00G.[id number] 3 AVAvailable for patient ztuqKQMJUWNOKURIWF3719-64-76C01:05:06 2023-07-26 08:28:00 [id number] [place] [address] PATIENT NAME: EVELYN GIBSON ADMIT DATE: 07/26/23ACCOUNT NO: [id number] ROOM NO: [facility] AGE: 83 REPORT TYPE: eELECTROCARDIOGRAM REPORT SEX: F ADMITTING PHYSICIAN:Apolinar Rankin MD ATTENDING PHYSICIAN:Apolinar Rankin MD Order:[id number] Reason : PREOP Test Date/Time Stamp:FriJul 26 [...] Self Referred Confirmed by:BAN RUTH MD at 1440 PATIENT NAME: EVELYN GIBSON .[id number] AVAvailable for patient nwdlUBDDCPJWOYLUXK7122-33-28N21:48:43
[2023-08-25 14:01] LABS: Absolute Lymphocytes (CBC) 1.3 K/uL (0.7-4.9); Hematocrit 33.5 % (36.0-45.0); Lymphocytes % 8.9 % (15.3-44.8); MCV 91.1 fL (80-100); MPV 9.2 fL (7.6-11.3); Platelets 262 thou/uL (152-406); RBC Red Blood Cell Count 3.68 M/uL (3.86-4.86)
[2023-08-25 14:06] LABS: Protime INR 1.19
--- NOTE | 2023-08-25 14:30 | RAD REPORT ---
EXAM DESCRIPTION: CT - Head C Spine Cap Wo Con - 08/25/2023 1:59 pm CLINICAL HISTORY: Trauma, head and neck injury. Chest, abdomen and pelvis pain. repeated falls, multiple head injuries, neck swelling/back COMPARISON: Head C Spine Cap Wo Con dated 08/24/2023 TECHNIQUE: CT head without contrast. CT cervical spine without contrast with coronal and sagittal reformatted images. CT chest, abdomen and pelvis without contrast with coronal and sagittal reform[facility] scans are performed using dose optimization technique as appropriate and may include automated exposure control or mA/KV adjustment according to patient size. FINDINGS: CT HEAD WITHOUT CONTRAST: No intracranial hemorrhage, hydrocephalus or extra-axial fluid collection. Mild generalized brain atr ophy. No areas of brain edema or midline shift. The paranasal sinuses and mastoids are clear. The calvarium is intact. CT CERVICAL SPINE WITHOUT CONTRAST: No fracture or subluxation. Mild degenerative levoscoliosis of the cervical spine apparent. The preve rtebral soft tissues are normal in thickness. CT CHEST, ABDOMEN, PELVIS WITHOUT CONTRAST: NOTE: Lack of contrast is a significant limitation in the assessment of trauma related findings. Spec ifically, solid organ, vascular and bowel evaluation is significantly limited. The lungs are clear.No pneumothorax or pericardial/pleural fluid. No evidence of intra-abdominal visceral injury, free fluid or free air is seen within the above detai led limitations. Cholelithiasis suspected. Several benign-appearing hepatic and renal cysts noted. No concerning pelvic findings. There is evidence of fracture involving the medial left clavicle without dislocation of the sternocla vicular joint. Degenerative changes are present thoracic and lumbar spine. IMPRESSION: Fracture of the medial aspect of the left clavicle noted without dislocation seen. Elsew here, no trauma related abnormality seen.
--- NOTE | 2023-08-25 14:35 | RAD REPORT ---
EXAM DESCRIPTION: RAD - Knee Right 3 View - 08/25/2023 2:07 pm CLINICAL HISTORY: PAIN COMPARISON: No comparisons FINDINGS: There is prominent soft tissue swelling seen anterior to the patella. Mild tricompartmenta l osteoarthritis is present. No acute fracture or dislocation.
[2023-08-25 14:40] LABS: Albumin 3.3 g/dL (3.4-5.0); Bilirubin Direct 0.1 mg/dL (0-0.2); Bilirubin Indirect, Calculated 0.4 mg/dL (0.2-0.8); Bilirubin Total 0.5 mg/dL (0.2-1.0); Magnesium 1.8 mg/dL (1.6-2.4); Protein, Total 7.7 g/dL (6.4-8.2); Troponin High Sensitivity 22.6 pg/mL (<58.9)
--- NOTE | 2023-08-25 15:23 | ER ---
Nurse's Notes [facility] Name: Traa Gibson Age: 83 yrs Sex: Female : 1940 Arrival Date: 08/25/2023 Time: 13:13 Bed 5 Private MD: Diagnosis: Repeated falls;Muscle weakness (generalized);Vertigo Presentation: 08/25 13:26 Chief complaint: EMS states: EMS has responded five times in the last 24 hours for hb falls, c/o generalized weakness and dizziness for a few days. Seen in ED on 08/24 for left clavicle fx, left arm in sling. Had aortic valve replacement mid Jul. Bruising noted to forehead and right knee, c/o pain in head, left ankle, and right knee. Takes Eliquis and ASA. Care prior to arrival: None. Mechanism of Injury: Fall from standing position. 13:26 Acuity: JESSICA 2 hb 13:26 Method Of Arrival: EMS: [facility] 13:28 Coronavirus screen: At this time, the client does not indicate any symptoms associated hb with coronavirus-19. Ebola Screen: No symptoms or risks identified at this time. Initial Sepsis Screen: Does the patient meet any 2 criteria? No. Patient's initial sepsis screen is negative. Does the patient have a suspected source of infection? No. Patient's initial sepsis screen is negative. Risk Assessment: Do you want to hurt yourself or someone else? Patient reports no desire to harm self or others. Onset of symptoms was August 25, 2023. Historical: - Allergies: 13:31 Diphenhydramine; hb - PMHx: 13:31 Arthritis; Back pain; Diabetes - NIDDM; High Cholesterol; Hypertension; hb - PSHx: 13:31 aortic vavle replacement (as); Left Mastectomy; hb - Immunization history:: Adult Immunizations unknown. - Family history:: not pertinent. - Social history:: Smoking status: unknown. - Hospitalizations: : Patient was recently seen at. Screenin:00 [facility] ED Fall Risk Assessment (Adult) History of falling in the last 3 months, cm10 including since admission Yes- fall prone (multiple falls) (3 pts) Confusion or Disorientation No (0 pts) Intoxicated or Sedated No (0 pts) Impaired Gait Yes (1 pt) Mobility Assist Device Used Yes (1 pt) Altered Elimination No (0 pt) Score/Fall Risk Level 3 or more points = High Risk Oriented to surroundings, Maintained a safe environment, Hourly rounding (assess needs \T\ fall precautionary measures) done. Abuse screen: Denies threats or abuse. Denies injuries from another. Nutritional screening: No deficits noted. Tuberculosis screening: No symptoms or risk factors identified. Assessment: 14:00 General: Appears in no apparent distress. comfortable, Behavior is calm, cooperative. cm10 Pain: Complains of pain in Left clavicle and back. Neuro: No deficits noted. Berry Agitation-Sedation Scale (RASS): 0 - Alert and Calm Level of Consciousness is awake, alert, obeys commands, Oriented to person, place, time, situation. Cardiovascular: No deficits noted. Patient's skin is warm and dry. Respiratory: No deficits noted. Airway is patent Respiratory effort is even, unlabored, Respiratory pattern is regular, symmetrical. GI: No deficits noted. No signs and/or symptoms were reported involving the gastrointestinal system. : No deficits noted. No signs and/or symptoms were reported regarding the genitourinary system. EENT: No deficits noted. No signs and/or symptoms were reported regarding the EENT system. Derm: No deficits noted. No signs and/or symptoms reported regarding the dermatologic system. Bruising that is. Musculoskeletal: Left arm in sling. 15:30 Reassessment: Patient appears in no apparent distress at this time. Patient and/or cm10 family updated on plan of care and expected duration. Pain level reassessed. Patient is alert, oriented x 3, equal unlabored respirations, skin warm/dry/pink. 17:00 Reassessment: Patient appears in no apparent distress at this time. Patient and/or cm10 family updated on plan of care and expected duration. Pain level reassessed. Patient is alert, oriented x 3, equal unlabored respirations, skin warm/dry/pink. 20:00 Reassessment: Patient appears in no apparent distress at this time. Patient and/or cm10 family updated on plan of care and expected duration. Pain level reassessed. Patient is alert, oriented x 3, equal unlabored respirations, skin warm/dry/pink. 21:01 Reassessment: PT admitted to ER hold, see charting in [facility]. cm10 08/26 18:05 Reassessment: Report attempted 3 times. RN could not take report. tm6 Vital Signs: 08/25 13:28 BP 121 / 75; Pulse 101; Resp 18; Temp 97.2; Pulse Ox 94% on R/A; Pain 8/10; hb 18:45 BP 134 / 57; Pulse 97; Resp 16; Temp 98; Pulse Ox 97% on R/A; cm10 13:28 Pain Scale: Adult hb ED Course: 13:23 Patient arrived in ED. hb 13:25 Jose Rogers MD is Attending Physician. rn 13:28 Triage completed. hb 13:31 Arm band placed on. hb 13:33 Maye Kiran, RN is Primary Nurse. cm10 13:52 Basic Metabolic Panel Sent. cm10 13:52 Hepatic Function Sent. cm10 13:52 Magnesium Sent. cm10 13:52 Protime (+inr) Sent. cm10 13:52 Ptt, Activated Sent. cm10 13:52 Troponin High Sensitivity Sent. cm10 13:52 Initial lab(s) drawn, by ne, sent to lab. Inserted saline lock: 22 gauge in right cm10 forearm, using aseptic technique. Blood collected. 14:00 CT Traumagram (Head C Spine CAP wo con) In Process Unspecified. EDMS 14:00 Patient has correct armband on for positive identification. Bed in low position. Call cm10 light in reach. Side rails up X2. Provided Education on: ER process and procedures.. Client placed on continuous cardiac and pulse oximetry monitoring. NIBP monitoring applied. 14:00 No provider procedures requiring assistance completed. cm10 14:09 XRAY Knee RIGHT 3 view In Process Unspecified. EDMS 15:22 Sy Pearson is Hospitalizing Provider. rn 21:02 Patient admitted, IV remains in place. cm10 08/26 18:05 Chelsea Arthur, RN is Primary Nurse. tm6 Administered Medications: No medications were administered Medication: 08/25 14:00 VIS not applicable for this client. cm10 Outcome: 15:22 Decision to Hospitalize by Provider. rn 21:01 Admitted to ER Hold. Please see [facility] for further documentation. cm10 21:01 Condition: good 21:01 Instructed on the need for admit, 08/26 21:15 Patient left the ED. nj1 Signatures: Dispatcher [employer] EDMS Jose Rogers MD MD rn Shah, Sherri, RN RN Karissa Wilkes RN RN nj1 Maye Kiran, RN RN cm10 Chelsea Arthur RN RN tm6 Corrections: (The following items were deleted from the chart) 08/25 13:31 13:26 Chief complaint: EMS states: EMS has responded five times in the last 24 hours for falls, c/o generalized weakness and dizziness for a few days. Seen in ED on 08/24 for left clavicle fx, left arm in sling. Had aortic valve replacement mid Nov. AOx4. Takes Eliquis and ASA. hb
--- NOTE | 2023-08-25 15:23 | EDPHYS ---
Physician Documentation [facility] Name: Tara Gibson Age: 83 yrs Sex: Female : 1940 Arrival Date: 08/25/2023 Time: 13:13 Bed 5 Private MD: ED Physician Jose Rogers HPI: 08/25 13:59 This 83 yrs old Female presents to ER via EMS with complaints of Fall Injury. rn 13:59 Details of fall: The patient fell from an upright position, while standing. Onset: The rn symptoms/episode began/occurred today. Associated injuries: The patient sustained injury to the head, Right knee, left clavicle. Severity of symptoms: At their worst the symptoms were moderate, in the emergency department the symptoms are unchanged. The patient has experienced similar episodes in the past. The patient has been recently seen by a physician:. Patient reports multiple falls over the last few days. Not sure why she is falling but reports dizzy spells where she feels drunk. Seen here yesterday after a fall and had a broken clavicle. Patient reports 5 falls today with head injury and right knee pain. Denies any chest pain or shortness of breath. No fever.. Historical: - Allergies: 13:31 Diphenhydramine; hb - PMHx: 13:31 Arthritis; Back pain; Diabetes - NIDDM; High Cholesterol; Hypertension; hb - PSHx: 13:31 aortic vavle replacement (as); Left Mastectomy; hb - Immunization history:: Adult Immunizations unknown. - Family history:: not pertinent. - Social history:: Smoking status: unknown. - Hospitalizations: : Patient was recently seen at. ROS: 13:59 Constitutional: Negative for fever, chills, and weight loss, Eyes: Negative for injury, rn pain, redness, and discharge, Neck: Negative for injury, pain, and swelling, Cardiovascular: Negative for chest pain, palpitations, and edema, Respiratory: Negative for shortness of breath, cough, wheezing, and pleuritic chest pain, Abdomen/GI: Negative for abdominal pain, nausea, vomiting, diarrhea, and constipation, MS/Extremity: Positive for injury and pain to right knee Skin: Negative for injury, rash, and discoloration, Neuro: Positive for generalized weakness Exam: 13:59 Constitutional: This is a well developed, well nourished patient who is awake, alert, rn and in no acute distress. Head/Face: Multiple ecchymosis and hematomas to forehead and scalp, no lacerations, no depressions Eyes: Pupils equal round and reactive to light, extra-ocular motions intact. ENT: Dry mucous membranes Neck: No midline cervical tenderness Cardiovascular: Tachycardic, regular. No pulse deficits. Respiratory: No increased work of breathing, no retractions or nasal flaring. Abdomen/GI: Soft, non-tender Skin: Warm, dry, multiple ecchymosis to upper and lower extremities, no laceration MS/ Extremity: Pulses equal, no cyanosis. Left arm held in sling. Mild swelling to right knee with ecchymosis but full range of motion of bilateral lower extremities. Neuro: Awake and alert, GCS 15, oriented to person, place, time, and situation. Cranial nerves II-XII grossly intact. Motor strength 5/5 in all extremities. Sensory grossly intact. 14:24 ECG was reviewed by the Attending Physician. rn Vital Signs: 13:28 BP 121 / 75; Pulse 101; Resp 18; Temp 97.2; Pulse Ox 94% on R/A; Pain 8/10; hb 18:45 BP 134 / 57; Pulse 97; Resp 16; Temp 98; Pulse Ox 97% on R/A; cm10 13:28 Pain Scale: Adult hb MDM: 13:25 Patient medically screened. rn 15:20 Differential diagnosis: closed head injury, contusion, fracture, sprain, strain. Data rn reviewed: vital signs, nurses notes, lab test result(s), radiologic studies, CT scan, plain films, and as a result, I will admit patient. Consideration of Admission/Observation Patient was admitted/placed on observation. Escalation of care including admission/observation considered. Independent interpretation of the following test(s) in the Emergency Department X-Ray: My interpretation is X-ray images right knee negative for acute fracture per my interpretation. Care significantly affected by the following chronic conditions: Diabetes, Hypertension. Counseling: I had a detailed discussion with the patient and/or guardian regarding the historical points, exam findings, and any diagnostic results supporting the discharge/admit diagnosis, lab results, radiology results, the need for further work-up and treatment in the hospital. Response to treatment: the patient's symptoms have mildly improved after treatment, and as a result, I will admit patient. 15:20 ED course: No new traumatic findings today. 5 falls today, including head injury, is on rn blood thinner, high fall risk. Elevated WBC but no source of infection found at this time. Will admit for further care and evaluation. Discussed case with hospitalist service and they will admit.. 08/25 13:32 Order name: CBC with Diff; Complete Time: 14:47 rn 08/25 13:32 Order name: Basic Metabolic Panel; Complete Time: 14:47 rn 08/25 13:32 Order name: Hepatic Function; Complete Time: 14:47 rn 08/25 13:32 Order name: Magnesium; Complete Time: 14:47 rn 08/25 13:32 Order name: Protime (+inr); Complete Time: 14:47 rn 08/25 13:32 Order name: Ptt, Activated; Complete Time: 14:47 rn 08/25 13:32 Order name: Troponin High Sensitivity; Complete Time: 14:47 rn 08/25 13:32 Order name: BNP; Complete Time: 14:47 rn 08/25 14:47 Order name: Urinalysis w/ reflexes; Complete Time: 09:08 rn 08/25 16:11 Order name: T4 Free; Complete Time: 09:08 EDMS 08/25 16:11 Order name: Thyroid Stimulating Hormone; Complete Time: 09:08 EDMS 08/25 16:11 Order name: Basic Metabolic Panel EDMS 08/25 16:11 Order name: Basic Metabolic Panel; Complete Time: 09:08 EDMS 08/25 16:11 Order name: Basic Metabolic Panel EDMS 08/25 16:11 Order name: Basic Metabolic Panel EDMS 08/25 16:11 Order name: Basic Metabolic Panel EDMS 08/25 16:11 Order name: Basic Metabolic Panel EDMS 08/25 16:11 Order name: Basic Metabolic Panel EDMS 08/25 16:11 Order name: Basic Metabolic Panel EDMS 08/25 16:11 Order name: CBC with Automated Diff EDMS 08/25 16:11 Order name: CBC with Automated Diff; Complete Time: 09:08 EDMS 08/25 16:11 Order name: CBC with Automated Diff EDMS 08/25 16:11 Order name: CBC with Automated Diff EDMS 08/25 16:11 Order name: CBC with Automated Diff EDMS 08/25 16:11 Order name: CBC with Automated Diff EDMS 08/25 16:12 Order name: CBC with Automated Diff EDMS 08/25 16:12 Order name: CBC with Automated Diff EDMS 08/25 16:12 Order name: Lipid Profile EDMS 08/25 16:12 Order name: Lipid Profile; Complete Time: 09:08 EDMS 08/25 16:12 Order name: Magnesium EDMS 08/25 16:12 Order name: Magnesium; Complete Time: 09:08 EDMS 08/25 16:12 Order name: Magnesium EDMS 08/25 16:12 Order name: Magnesium EDMS 08/25 16:12 Order name: Magnesium EDMS 08/25 16:12 Order name: Magnesium EDMS 08/25 16:12 Order name: Magnesium EDMS 08/25 16:12 Order name: Magnesium EDMS 08/25 16:12 Order name: Phosphorus EDMS 08/25 16:12 Order name: Phosphorus; Complete Time: 09:08 EDMS 08/25 16:12 Order name: Phosphorus EDMS 08/25 16:12 Order name: Phosphorus EDMS 08/25 16:12 Order name: Phosphorus EDMS 08/25 16:12 Order name: Phosphorus EDMS 08/25 16:12 Order name: Phosphorus EDMS 08/25 16:12 Order name: Phosphorus EDMS 08/25 16:12 Order name: Troponin High Sensitivity EDMS 08/25 16:12 Order name: Troponin High Sensitivity; Complete Time: 09:08 EDMS 08/25 16:12 Order name: Troponin High Sensitivity; Complete Time: 09:08 EDMS 08/25 23:24 Order name: Glucose, Ancillary Testing; Complete Time: 09:08 EDMS 08/26 08:04 Order name: Glucose, Ancillary Testing; Complete Time: 09:08 EDMS 08/26 12:12 Order name: Glucose, Ancillary Testing EDMS 08/26 17:44 Order name: Glucose, Ancillary Testing EDMS 08/25 13:32 Order name: CT Traumagram (Head C Spine CAP wo con); Complete Time: 14:47 rn 08/25 13:33 Order name: XRAY Knee RIGHT 3 view; Complete Time: 14:47 rn 08/25 13:32 Order name: EKG; Complete Time: 13:33 rn 08/25 13:32 Order name: IV Start; Complete Time: 14:22 rn 12/04 13:32 Order name: Cardiac monitoring; Complete Time: 13:52 rn 08/25 13:32 Order name: EKG - Nurse/Tech; Complete Time: 14:19 rn 08/25 13:32 Order name: Labs collected and sent; Complete Time: 13:52 rn 08/25 13:32 Order name: O2 Per Protocol; Complete Time: 13:52 rn 08/25 13:32 Order name: O2 Sat Monitoring; Complete Time: 13:52 rn EC:24 Rate is 95 beats/min. Rhythm is regular. QRS [place] is Normal. SC interval is normal. QRS rn interval is prolonged at 132 msec. QT interval is normal. No Q waves. T waves are Normal. No ST changes noted. Clinical impression: NSR w/ Non-specific ST/T Changes. Interpreted by me. Reviewed by me. Administered Medications: No medications were administered Disposition Summary: 08/25/23 15:22 Hospitalization Ordered Notes: Hospitalization Status: Observation rn Provider: Sy Pearson rn Condition: Stable rn Problem: new rn Symptoms: have improved rn Bed/Room Type: Standard rn Location: Telemetry/MedSurg (observation)(08/26/23 16:33) bd Room Assignment: 403(08/26/23 16:33) bd Diagnosis - Repeated falls rn - Muscle weakness (generalized) rn - Vertigo rn Forms: - Medication Reconciliation Form rn - SBAR form rn - Leadership Thank You Letter rn Signatures: Dispatcher [employer] EDLeila Vincent Roman, MD MD rn Attema, Lee, MANAGER PRACTICE-C MANAGER PRACTICE-Cla1 Sherri Shah RN Maye Viera RN RN cm10 Corrections: (The following items were deleted from the chart) 16:13 15:22 Telemetry/MedSurg (observation) rn bd 16:13 15:22 rn bd 08/26 16:33 12 16:13 [facility] ER HOLD bd bd 08/26 16:33 12 16:13 ERHOLD- bd bd
--- NOTE | 2023-08-25 16:16 | P.HP ---
Certification for Inpatient Patient admitted to: Observation With expected LOS: <2 Midnights Practitioner: I am a practitioner with admitting privileges, knowledge of patient current condition, hospital course, and medical plan of care. Services: Services provided to patient in accordance with Admission requirements found in Title 42 Section 412.3 of the Code of Federal Regulations Patient History Date of Service: 08/25/23 Reason for admission: Frequent falls History of Present Illness: Tara Saenz is an 83-year-old female with past medical history of arthritis, back pain, diabetesNIDDM, high cholesterol, hypertension, who presented to the ED complaining of frequent falls for the last week. She reports a TAVR and discharged 07/26/2023. She states she has fallen for the last week feeling like her legs are giving out from under her, not dizzy or lightheaded, she is aware when she falls, she tries to turn her rollator so she can sit quickly. She does report a history of vertigo. She is not sure if she has A-fib but is taking Eliquis twice daily, with last dose taken this morning (08/25). Of note, since her TAVR procedure she has not eaten well, complaining of hospital food in July and now, with frequent falls, she is unable to fix appropriate meals. Initial vitals BP 121 / 75; Pulse 101; Resp 18; Temp 97.2; Pulse Ox 94% on R/A; Lab evaluation WBC 14.5, H&H 11/33, sodium 134, potassium 4.0, bicarb 28, BUN/creatinine 15/0.98, serum glucose 99, UA positive for leukocyte esterase 250, WBC 20-50. CT HEAD WITHOUT CONTRAST: No intracranial hemorrhage, hydrocephalus or extra-axial fluid collection. Mild generalized brain atrophy. No areas of brain edema or midline shift. The paranasal sinuses and mastoids are clear. The calvarium is intact. CT CERVICAL SPINE WITHOUT CONTRAST: No fracture or subluxation. Mild degenerative levoscoliosis of the cervical spine apparent. The prevertebral soft tissues are normal in thickness CT CHEST, ABDOMEN, PELVIS WITHOUT CONTRAST:medial left clavicle without dislocation of the sternoclavicular joint. Degenerative changes are present thoracic and lumbar spine. Right knee xray: There is prominent soft tissue swelling seen anterior to the patella. Mild tricompartmental osteoarthritis is present. No acute fracture or dislocation. Tara will be admitted to hospitalist service for further evaluation and treatment of urinary tract infection and frequent falls. Allergies diphenhydramine [From Benadryl] Allergy (Verified 07/21/20 14:33) Nausea/Vomiting Home Medications: Amlodipine [Norvasc*] 5 mg PO DAILY 12/10/14 Hydrocodone Bit/Acetaminophen [Hydrocodon-Acetaminophn 10-325] 10 mg PO Q6H PRN 12/10/14 Lisinopril/Hydrochlorothiazide [Zestoretic 10-12.5 mg Tablet] 10 - 12.5 mg PO DAILY 12/10/14 Metformin HCl [Glucophage*] 500 mg PO BID 12/10/14 Simvastatin [Zocor*] 10 mg PO DAILY 12/10/14 Alprazolam [Alprazolam ER] 1 mg PO PRN PRN 07/21/20 Aspirin Chewable [Aspirin Chewable*] 81 mg PO DAILY 07/21/20 Docusate Sodium [Stool Softener] 100 mg PO DAILY 07/21/20 Metoprolol Tartrate [Lopressor*] 25 mg PO BID 6AM 6PM #60 tab 07/22/23 - Past Medical/Surgical History Diabetic: Yes -: HTN -: NIDDM -: breast cancer -: High cholesterol -: eye surgery -: L mastectomy -: bronken wrist -: rotater cuff surgery -: hystertectomy. - Social History Alcohol use: No CD- Drugs: No Caffeine use: Yes Review of Systems General: Unremarkable Eyes: Unremarkable ENT: Unremarkable Respiratory: Unremarkable Cardiovascular: Light Headedness Gastrointestinal: Unremarkable Genitourinary: Unremarkable Musculoskeletal: Leg Pain, Other (right knee pain, left orbit pain, right chin, left clavicle) Integumentary: Bruising (right neck, left eye, right knee, ) Physical Examination - Physical Exam General: Alert, In no apparent distress, Oriented x3 HEENT: Atraumatic, Normocephalic, PERRLA Neck: Supple, 2+ carotid pulse no bruit, JVD not distended Respiratory: Clear to auscultation bilaterally, Normal air movement Cardiovascular: No edema, Normal pulses, Regular rate/rhythm, Normal S1 S2 Capillary refill: <2 Seconds Gastrointestinal: Normal bowel sounds, Soft and benign Musculoskeletal: No clubbing, Swelling (left eye, right neck, right knee) Integumentary: No rashes, No significant lesion, Tenderness/swelling (left eye, right neck, left clavicle, right knee) Neurological: Normal speech, Normal strength at 5/5 x4 extr, Normal tone - Studies Laboratory Data (last 24 hrs) 08/25/23 08/25/23 08/25/23 13:53 13:53 13:53 WBC 14.50 H Hgb 11.2 L Hct 33.5 L Plt Count 262 PT 13.1 H INR 1.19 APTT 36.5 Sodium 134 L Potassium 4.0 BUN 15 Creatinine 0.98 Glucose 99 Magnesium 1.8 Total Bilirubin 0.5 AST 23 ALT 19 Alkaline Phosphatase 71 Assessment and Plan - Plan Assessment and plan Trauma, frequent falls History of vertigo Fracture to medial left clavicle without dislocation of the supraclavicular joint CT CHEST, ABDOMEN, PELVIS WITHOUT CONTRAST:medial left clavicle without dislocation of the sternoclavicular joint. Degenerative changes are present thoracic and lumbar spine. Sling to left arm Pain control Consult orthopedic Fall risk Physical therapy Vertigo not currently being treated UTI Leukocytosis WBC 14.5 UA positive leukocyte esterase 250, WBC 20-50 Follow Urine culture and sensitive Rocephin Status post TAVR procedure Procedure performed first week of July, discharge paperwork July 26 Echo for concern of valve placement, could be contributing to frequent falls Hypertension HLD Start home medication DM 2- NIDDM Accu-Check with sliding scale Serum glucose 99 DVT PPx Lovenox Full code LOS 2 to 3 days Discharge Plan: Home Plan to discharge in: 48 Hours - Advance Directives Does patient have a Living Will: No Does patient have a Durable POA for Healthcare: No Time Spent Managing Pts Care (In Minutes): 55
[2023-08-25] MEDS ORDERED: D50W 25 GM/50 ML SYRINGE IV PRN (18:30)
[2023-08-25] MEDS ORDERED: GLUCAGON 1 MG/VIAL IM PRN (18:30)
[2023-08-25] MEDS ORDERED: D10W 125 ML IV PRN (18:37)
[2023-08-25 18:52] LABS: Specific Gravity 1.022 (1.005-1.030); Urine Bacteria <20 /HPF (<20); Urine Bilirubin NEGATIVE (Negative); Urine Blood Negative (Negative); Urine Clarity Extremely Turbid (Clear); Urine Color Yellow (Yellow); Urine Crystals Unidentified Few /HPF (None Seen); Urine Glucose NEGATIVE (Negative); Urine Mucus Slight /HPF (None Seen); Urine Protein TRACE (Negative); Urine RBC <5 /HPF (None Seen); Urine Urobilinogen Normal (Normal)
[2023-08-25] MEDS: INSULIN REGULAR (HUMAN) 100 UNIT/ML SQ SCH (22:04)
[2023-08-25 22:52] LABS: Thyroid Stimulating Hormone 0.62 uIU/mL (0.358-3.740)
[2023-08-26 03:43] LABS: Absolute Lymphocytes (CBC) 1.5 K/uL (0.7-4.9); Hematocrit 30.9 % (36.0-45.0); Lymphocytes % 15.3 % (15.3-44.8); MPV 9.1 fL (7.6-11.3); Platelets 241 thou/uL (152-406); RBC Red Blood Cell Count 3.43 M/uL (3.86-4.86)
[2023-08-26 03:54] LABS: Magnesium 1.8 mg/dL (1.6-2.4); Phosphorus 3.1 mg/dL (2.5-4.9); Potassium 4.1 mEq/L (3.5-5.1); Troponin High Sensitivity 25.3 pg/mL (<58.9)
[2023-08-26] MEDS: NA CHLORIDE 0.9% 1,000 ML IV SCH ×2 (04:50→13:00)
[2023-08-26] MEDS ORDERED: NA CHLORIDE 0.9% 1,000 ML ONE ×2 (05:04→15:44)
[2023-08-26] MEDS: INSULIN REGULAR (HUMAN) 100 UNIT/ML SQ SCH ×4 (07:30→21:00)
[2023-08-26] MEDS: CEFTRIAXONE 1,000 MG in NA CHLORIDE 0.9% 50 ML IVPB SCH (08:05)
[2023-08-26] MEDS ORDERED: CEFTRIAXONE 1000 MG/VIAL ONE (08:11)
[2023-08-26] MEDS ORDERED: NA CHLORIDE 0.9% 500 ML IV ONE (10:00)
--- NOTE | 2023-08-26 13:29 | EKG ---
Test Date: 2023-08-25 Test Time: 14:10:55 Radio Board Operator Announcer: ERNESTINE MEASUREMENT RESULTS: Intervals: Rate: 95 DE: 148 QRSD: 132 QT: 406 QTc: 510 [place]: P: 88 DE: 148 QRS: 3 T: 94 INTERPRETIVE STATEMENTS: Normal sinus rhythm Left bundle branch block Abnormal ECG Compared to ECG 08/24/2023 11:29:13 No significant changes Electronically Signed On 08-26-23 13:26:47 READING AIDE by Ziyad Hernández
--- NOTE | 2023-08-26 13:56 | P.PN ---
Date of Service: 08/26/23 Subjective: Still having intermittent dizziness was able to work with PT today Lives alone, no family around ROS: 10 point ROS as noted above, otherwise negative Physical exam GEN: Alert, oriented, NAD HEENT: Normal conjunctiva, sclera anicteric CV: Regular rate and rhythm, no edema Pulm: Nonlabored respirations on room air ABD: Soft, nontender, nondistended MSK: No joint tenderness Integumentary: No rashes Neuro: Normal speech, normal affect Vitals reviewed Problem List Trauma, frequent falls vertigo Fracture to medial left clavicle without dislocation of the supraclavicular joint Sling to left arm,Pain control Physical therapy-worked with PT, still having intermittent dizziness Lives at home alone, uses walker Had 5 falls in one day prior to hospitalization had not had issues while using the walker until the last week or so continue PT, will need minimum of PT at home UTI Leukocytosis WBC 14.5 UA positive leukocyte esterase 250, WBC 20-50 Follow Urine culture and sensitive Rocephin Denies specific urinary symptoms but may be contributing to weakness/dizziness Status post TAVR procedure Procedure performed first week of July, discharge paperwork July 26 Echo for concern of valve placement, could be contributing to frequent falls Hypertension HLD Start home medication DM 2- NIDDM Accu-Check with sliding scale DVT PPx Lovenox-med rec-patient possible on eliquis at home Full code LOS 1 to 2 days Time Spent Managing Pts Care (In Minutes): 35
[2023-08-26 21:12] VITALS: BMI 36.6
[2023-08-27 07:25] LABS: Absolute Lymphocytes (CBC) 1.5 K/uL (0.7-4.9); Hematocrit 29.8 % (36.0-45.0); Lymphocytes % 21.2 % (15.3-44.8); MCV 91.2 fL (80-100); MPV 8.9 fL (7.6-11.3); Platelets 221 thou/uL (152-406); RBC Red Blood Cell Count 3.26 M/uL (3.86-4.86)
[2023-08-27] MEDS: INSULIN REGULAR (HUMAN) 100 UNIT/ML SQ SCH ×4 (07:30→19:29)
[2023-08-27 07:35] LABS: Magnesium 1.8 mg/dL (1.6-2.4); Phosphorus 2.9 mg/dL (2.5-4.9); Potassium 3.7 mEq/L (3.5-5.1)
--- NOTE | 2023-08-27 09:15 | P.PN ---
Date of Service: 08/27/23 Subjective: Still having intermittent dizziness was able to work with PT today Lives alone, no family around ROS: 10 point ROS as noted above, otherwise negative Physical exam GEN: Alert, oriented, NAD HEENT: Normal conjunctiva, sclera anicteric CV: Regular rate and rhythm, no edema Pulm: Nonlabored respirations on room air ABD: Soft, nontender, nondistended MSK: No joint tenderness Integumentary: No rashes Neuro: Normal speech, normal affect Vitals reviewed Problem List Trauma, frequent falls vertigo Fracture to medial left clavicle without dislocation of the supraclavicular joint Sling to left arm,Pain control Physical therapy-worked with PT, still having intermittent dizziness Lives at home alone, uses walker, now limited with left clavicle fracture Had 5 falls in one day prior to hospitalization had not had issues while using the walker until the last week or so continue PT eval UTI Leukocytosis WBC 14.5 UA positive leukocyte esterase 250, WBC 20-50 Follow Urine culture and sensitive Rocephin Denies specific urinary symptoms but may be contributing to weakness/dizziness Status post TAVR procedure Procedure performed first week of July, discharge paperwork July 26 Hypertension HLD Start home medication DM 2- NIDDM Accu-Check with sliding scale DVT PPx Lovenox-med rec-patient possible on eliquis at home Full code LOS 1 to 2 days Time Spent Managing Pts Care (In Minutes): 35
[2023-08-27] MEDS ORDERED: HYDROCODONE/APAP 7.5/325 MG TAB PO PRN (09:37)
[2023-08-27] MEDS: CEFTRIAXONE 1,000 MG in NA CHLORIDE 0.9% 50 ML IVPB SCH (09:44)
[2023-08-27] MEDS: METFORMIN ER 500 MG TAB PO SCH (09:58)
[2023-08-27] MEDS: ASPIRIN 81 MG CHEWABLE TABLET PO SCH (09:58)
[2023-08-27] MEDS: APIXABAN 2.5 MG TABLET PO SCH ×2 (09:58→19:53)
[2023-08-27] MEDS: AMLODIPINE 10 MG TAB PO SCH (09:58)
[2023-08-27] MEDS: AMIODARONE HCL 200 MG TAB PO SCH ×2 (09:59→19:54)
[2023-08-27] MEDS: DOCUSATE NA 100 MG CAP PO SCH (09:59)
[2023-08-27] MEDS ORDERED: MAGNESIUM SULFATE 1 gm IVPB 1 GM/100 ML BAG IV ONE (11:34)
[2023-08-27] MEDS ORDERED: POTASSIUM CL SA 10 MEQ TAB PO ONE (12:27)
--- NOTE | 2023-08-27 17:36 | P.CNS ---
Date of Consult: 08/27/23 Reason for Consult: recent TAVR 08/14/23 Requesting Physician: fidel stephens Chief Complaint: Frequent falls History of Present Illness: Ms Gibson is an 83yo patient with a past medical history of vertigo, arthritis, and a recent TAVR of eliquis. EMS has been called to Ms. Gibson' home multiple times in 24 hours for repeated falls. She had CT scan evaluation for intracranial bleeding that was negative. She states she always has vertigo and only the frequency of her falls is new Allergies diphenhydramine [From Benadryl] Allergy (Verified 07/21/20 14:33) Nausea/Vomiting Home medications list reviewed: Yes Home Medications: Amlodipine [Norvasc*] 10 mg PO DAILY 12/10/14 Hydrocodone Bit/Acetaminophen [Hydrocodon-Acetaminophn 10-325] 10 mg PO TIDP PRN 12/10/14 Lisinopril/Hydrochlorothiazide [Zestoretic 10-12.5 mg Tablet] 10 - 12.5 mg PO DAILY 12/10/14 Metformin HCl [Glucophage*] 500 mg PO DAILY 12/10/14 Simvastatin [Zocor*] 20 mg PO DAILY 12/10/14 Alprazolam [Alprazolam ER] 1 mg PO BIDP PRN 07/21/20 Aspirin Chewable [Aspirin Chewable*] 81 mg PO DAILY 07/21/20 Docusate Sodium [Stool Softener] 100 mg PO DAILY 07/21/20 Amiodarone HCl [Cordarone*] 1 tab PO BID 08/26/23 Apixaban [Eliquis *] 1 tab PO BID 08/26/23 - Past Medical/Surgical History Diabetic: Yes -: HTN -: NIDDM -: breast cancer -: High cholesterol -: eye surgery -: L mastectomy -: bronken wrist -: rotater cuff surgery -: hystertectomy. 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 Psychosocial/ Personal History: Lives at home alone - Social History Smoking Status: Unknown if ever smoked Alcohol use: No CD- Drugs: No Caffeine use: Yes Place of Residence: Home Review of Systems 10-point ROS is otherwise unremarkable General: As per HPI Cardiovascular: As per HPI Integumentary: Bruising Physical Examination Temp Pulse Resp BP Pulse Ox 97.4 F 85 16 133/63 85 L 08/27/23 08:00 08/27/23 09:58 08/27/23 08:00 08/27/23 09:58 08/27/23 08:00 General: Alert, In no apparent distress HEENT: Normocephalic, PERRLA Neck: Supple, 2+ carotid pulse no bruit Respiratory: Clear to auscultation bilaterally, Normal air movement Cardiovascular: No edema, Regular rate/rhythm Capillary refill: <2 Seconds Gastrointestinal: Normal bowel sounds, Soft and benign Musculoskeletal: No clubbing Integumentary: Other (multiple areas of hematoma, left occiput, left lateral lower leg, dark purple ecchymosis to right submandibular area and anterior neck) Laboratory Data (last 24 hrs) 08/27/23 08/27/23 06:53 06:53 WBC 7.20 Hgb 9.8 L Hct 29.8 L Plt Count 221 Sodium 138 Potassium 3.7 BUN 10 Creatinine 0.68 Glucose 103 Phosphorus 2.9 Magnesium 1.8 - Problems (1) Status post transcatheter aortic valve replacement Current Visit: Yes Status: Acute Plan: Pt recently 08/25/23 had ECHO that showed LVH and mild aortic stenosis. Medicine wishes to have another ECHO for re-evaluation (2) Nonspecific dizziness Current Visit: Yes Status: Acute Plan: As pt takes anticoagulation, care and assistive devices may be necessary. Pt labs indicate UTI as well. I do not feel dizziness is related to any ischemia or problem from the recent TAVR. Will get ECHO tomorrow and release to medicine services. Critical Care: No
[2023-08-27] MEDS: ONDANSETRON 4 MG/2 ML VIAL IV PRN (18:29)
[2023-08-27] MEDS: ATORVASTATIN 10 MG TAB PO SCH (19:53)
[2023-08-28] MEDS: INSULIN REGULAR (HUMAN) 100 UNIT/ML SQ SCH ×4 (07:30→21:00)
[2023-08-28 07:31] LABS: Absolute Lymphocytes (CBC) 1.3 K/uL (0.7-4.9); Hematocrit 30.5 % (36.0-45.0); Lymphocytes % 15.6 % (15.3-44.8); MCV 91.4 fL (80-100); MPV 9.1 fL (7.6-11.3); Platelets 256 thou/uL (152-406); RBC Red Blood Cell Count 3.34 M/uL (3.86-4.86)
[2023-08-28 07:47] LABS: Magnesium 2.2 mg/dL (1.6-2.4); Phosphorus 3.1 mg/dL (2.5-4.9); Potassium 3.8 mEq/L (3.5-5.1)
[2023-08-28] MEDS ORDERED: DOXYCYCLINE 100 MG CAP PO SCH (09:00)
[2023-08-28] MEDS: ASPIRIN 81 MG CHEWABLE TABLET PO SCH (09:28)
[2023-08-28] MEDS: APIXABAN 2.5 MG TABLET PO SCH ×2 (09:28→22:11)
[2023-08-28] MEDS: DOCUSATE NA 100 MG CAP PO SCH (09:28)
[2023-08-28] MEDS: METFORMIN ER 500 MG TAB PO SCH (09:28)
[2023-08-28] MEDS: AMIODARONE HCL 200 MG TAB PO SCH ×2 (09:28→22:11)
[2023-08-28] MEDS: AMLODIPINE 10 MG TAB PO SCH (09:28)
--- NOTE | 2023-08-28 09:37 | P.PN ---
Date of Service: 08/28/23 Subjective: improving, dizziness seems to be at baseline now worse with standing but resolves was able to work with PT today Lives alone, no family around ROS: 10 point ROS as noted above, otherwise negative Physical exam GEN: Alert, oriented, NAD HEENT: Normal conjunctiva, sclera anicteric CV: Regular rate and rhythm, no edema Pulm: Nonlabored respirations on room air ABD: Soft, nontender, nondistended MSK: No joint tenderness Integumentary: No rashes Neuro: Normal speech, normal affect Vitals reviewed Problem List Trauma, frequent falls vertigo Fracture to medial left clavicle without dislocation of the supraclavicular joint Sling to left arm,Pain control Physical therapy-worked with PT, still having intermittent dizziness although improving Lives at home alone, uses walker, now limited with left clavicle fracture Had 5 falls in one day prior to hospitalization had not had issues while using the walker until the last week or so continue PT eval Possible SNF placement Urine culture positive for staph epidermidis-likely contaminant Leukocytosis-resolved UA positive leukocyte esterase 250, WBC 20-50 Urine culture showed Staph epidermidis-not sensitive to Rocephin which patient has been on White blood cell count improved with IV fluids, no fevers or urinary symptoms reported Hold off on additional anitbiotics given that patient has been on rocephin-not sensitive, not having any urinary symptoms/WBC normalalized/no fevers Possibly contaminant Status post TAVR procedure Procedure performed first week of July, discharge paperwork July 26 echo ordered and pending Hypertension HLD Start home medication DM 2- NIDDM Accu-Check with sliding scale DVT PPx continu eliquis, asa Full code LOS 1 to 2 days Time Spent Managing Pts Care (In Minutes): 35
--- NOTE | 2023-08-28 15:09 | P.PN ---
Subjective Date of Service: 08/28/23 Chief Complaint: Frequent falls Review of Systems 10-point ROS is otherwise unremarkable Neurological: As per HPI Physical Examination - Vital Signs Temperature: 96.9 F Blood Pressure: 137/55 Pulse: 83 Respirations: 18 Pulse Ox (%): 94 - Physical Exam General: Other (sleeping on arrival for assessment this am. ) Neck: 2+ carotid pulse no bruit Respiratory: Clear to auscultation bilaterally Cardiovascular: No edema Capillary refill: <2 Seconds Gastrointestinal: Soft and benign Musculoskeletal: No clubbing Lymphatics: No axilla or inguinal lymphadenopathy External genitalia: Tenderness Rectal: No tenderness - Studies Microbiology Data (last 24 hrs): 08/25/23 18:40 Clean Catch Urine [place] Count - Final >100,000 CFU/ML. 08/25/23 18:40 Clean Catch Urine - Final Staph Epidermidis Assessment And Plan - Current Problems (Diagnosis) (1) Status post transcatheter aortic valve replacement Current Visit: Yes Status: Acute Plan: Pt recently 08/25/23 had ECHO that showed LVH and mild aortic stenosis. Medicine wishes to have another ECHO for re-evaluation ECHO done today (2) Nonspecific dizziness Current Visit: Yes Status: Acute Plan: As pt takes anticoagulation, care and assistive devices may be necessary. Orthostatic hypotension present, will decrease blood pressure medication and see if that helps as pt is now euvolemic. Hold amlodipine, continue asa, Eliquis, atorvastatin, and amiodarone.
[2023-08-28] MEDS: ONDANSETRON 4 MG/2 ML VIAL IV PRN (15:52)
[2023-08-28] MEDS: ATORVASTATIN 10 MG TAB PO SCH (22:11)
[2023-08-29 07:22] LABS: Absolute Lymphocytes (CBC) 1.4 K/uL (0.7-4.9); Hematocrit 31.8 % (36.0-45.0); Lymphocytes % 15.4 % (15.3-44.8); MCV 90.8 fL (80-100); Platelets 308 thou/uL (152-406)
[2023-08-29 07:25] LABS: Magnesium 1.9 mg/dL (1.6-2.4); Potassium 3.6 mEq/L (3.5-5.1)
[2023-08-29] MEDS: INSULIN REGULAR (HUMAN) 100 UNIT/ML SQ SCH ×4 (07:30→19:58)
--- NOTE | 2023-08-29 08:50 | P.PN ---
Subjective Date of Service: 08/29/23 Chief Complaint: Frequent falls Subjective: Improving Review of Systems 10-point ROS is otherwise unremarkable Neurological: As per HPI Physical Examination - Vital Signs Temperature: 97.4 F Blood Pressure: 138/53 Pulse: 80 Respirations: 20 Pulse Ox (%): 96 - Physical Exam General: Alert, Oriented x3 HEENT: Atraumatic, Normocephalic Neck: Supple Respiratory: Normal air movement Cardiovascular: Normal pulses Capillary refill: <2 Seconds Gastrointestinal: Normal bowel sounds, Soft and benign Musculoskeletal: No clubbing Integumentary: No rashes Neurological: Normal speech, Normal tone External genitalia: Deferred Rectal: Deferred - Studies Microbiology Data (last 24 hrs): 08/25/23 18:40 Clean Catch Urine [place] Count - Final >100,000 CFU/ML. 08/25/23 18:40 Clean Catch Urine - Final Staph Epidermidis Assessment And Plan - Current Problems (Diagnosis) (1) Status post transcatheter aortic valve replacement Current Visit: Yes Status: Acute Plan: Pt recently 08/25/23 had ECHO that showed LVH and mild aortic stenosis. Medicine wishes to have another ECHO for re-evaluation ECHO done yesterday, will review Held Amlodipine yesterday, VSS this am 138/53, 80, 96%, creatinine 0.69. (2) Nonspecific dizziness Current Visit: Yes Status: Acute Plan: As pt takes anticoagulation, care and assistive devices may be necessary. Orthostatic hypotension present, will decrease blood pressure medication and see if that helps as pt is now euvolemic. Hold amlodipine, continue asa, Eliquis, atorvastatin, and amiodarone. 08/29/23 - current BP 138/53, pt feeling better.
[2023-08-29] MEDS ORDERED: POTASSIUM CL SA 10 MEQ TAB PO ONE (09:00)
[2023-08-29] MEDS: AMIODARONE HCL 200 MG TAB PO SCH ×2 (09:03→21:33)
[2023-08-29] MEDS: DOCUSATE NA 100 MG CAP PO SCH (09:03)
[2023-08-29] MEDS: METFORMIN ER 500 MG TAB PO SCH (09:03)
[2023-08-29] MEDS: ASPIRIN 81 MG CHEWABLE TABLET PO SCH (09:03)
[2023-08-29] MEDS: APIXABAN 2.5 MG TABLET PO SCH ×2 (09:03→21:33)
--- NOTE | 2023-08-29 10:18 | P.PN ---
Date of Service: 08/29/23 Subjective: improving, dizziness seems to be at baseline now worse with standing but resolves having some nausea/vomiting after eating- reports its because of bland food Denies abd pain ROS: 10 point ROS as noted above, otherwise negative Physical exam GEN: Alert, oriented, NAD HEENT: Normal conjunctiva, sclera anicteric CV: Regular rate and rhythm, no edema Pulm: Nonlabored respirations on room air ABD: Soft, nontender, nondistended MSK: No joint tenderness Integumentary: No rashes Neuro: Normal speech, normal affect Vitals reviewed Problem List Trauma, frequent falls vertigo Fracture to medial left clavicle without dislocation of the supraclavicular joint Sling to left arm,Pain control Physical therapy-worked with PT, still having intermittent dizziness although improving Lives at home alone, uses walker, now limited with left clavicle fracture Had 5 falls in one day prior to hospitalization had not had issues while using the walker until the last week or so continue PT eval Possible SNF placement Urine culture positive for staph epidermidis-likely contaminant Leukocytosis-resolved UA positive leukocyte esterase 250, WBC 20-50 Urine culture showed Staph epidermidis-not sensitive to Rocephin which patient has been on White blood cell count improved with IV fluids, no fevers or urinary symptoms reported Hold off on additional anitbiotics given that patient has been on rocephin-not sensitive, not having any urinary symptoms/WBC normalalized/no fevers Possibly contaminant Status post TAVR procedure Procedure performed first week of July, discharge paperwork July 26 echo ordered and pending Hypertension HLD Start home medication DM 2- NIDDM Accu-Check with sliding scale DVT PPx continu eliquis, asa Full code LOS 1 to 2 days Time Spent Managing Pts Care (In Minutes): 35
[2023-08-29] MEDS ORDERED: PANTOPRAZOLE 40MG TABLET PO ONE (10:45)
[2023-08-29] MEDS: ONDANSETRON 4 MG/2 ML VIAL IV PRN (16:42)
[2023-08-29] MEDS ORDERED: ALPRAZOLAM 1 MG PO PRN (19:04)
[2023-08-29] MEDS ORDERED: LORAZEPAM 0.5 MG TABLET PO ONE (19:46)
[2023-08-29] MEDS: ATORVASTATIN 10 MG TAB PO SCH (21:33)
[2023-08-30] MEDS: PANTOPRAZOLE 40MG TABLET PO SCH (06:20)
[2023-08-30] MEDS: INSULIN REGULAR (HUMAN) 100 UNIT/ML SQ SCH ×4 (07:30→21:00)
[2023-08-30] MEDS: APIXABAN 2.5 MG TABLET PO SCH ×2 (08:59→21:26)
[2023-08-30] MEDS: ASPIRIN 81 MG CHEWABLE TABLET PO SCH (09:00)
[2023-08-30] MEDS: METFORMIN ER 500 MG TAB PO SCH (09:00)
[2023-08-30] MEDS: DOCUSATE NA 100 MG CAP PO SCH (09:00)
[2023-08-30] MEDS: AMIODARONE HCL 200 MG TAB PO SCH ×2 (09:00→21:26)
[2023-08-30] MEDS: ALPRAZOLAM 1 MG TABLET PO PRN ×2 (09:00→21:26)
--- NOTE | 2023-08-30 09:02 | P.PN ---
Date of Service: 08/30/23 Subjective: improving having some nausea/vomiting- possible benzo withdrawal Denies abd pain No acute events overnight ROS: 10 point ROS as noted above, otherwise negative Physical exam GEN: Alert, oriented, NAD HEENT: Normal conjunctiva, sclera anicteric CV: Regular rate and rhythm, no edema Pulm: Nonlabored respirations on room air ABD: Soft, nontender, nondistended MSK: No joint tenderness Integumentary: No rashes Neuro: Normal speech, normal affect Vitals reviewed Problem List Trauma, frequent falls vertigo Fracture to medial left clavicle without dislocation of the supraclavicular joint Sling to left arm,Pain control Physical therapy-worked with PT, still having intermittent dizziness although improving Lives at home alone, uses walker, now limited with left clavicle fracture Had 5 falls in one day prior to hospitalization had not had issues while using the walker until the last week or so continue PT eval Possible SNF placement Nausea/vomiting Possibly related to benzodiazepine withdrawal Restarted alprazolam 1 mg p.o. twice daily Urine culture positive for staph epidermidis-likely contaminant Leukocytosis-resolved UA positive leukocyte esterase 250, WBC 20-50 Urine culture showed Staph epidermidis-not sensitive to Rocephin which patient has been on White blood cell count improved with IV fluids, no fevers or urinary symptoms reported Hold off on additional anitbiotics given that patient has been on rocephin-not sensitive, not having any urinary symptoms/WBC normalalized/no fevers Possibly contaminant Status post TAVR procedure Procedure performed first week of July, discharge paperwork July 26 echo ordered Hypertension HLD Start home medication DM 2- NIDDM Accu-Check with sliding scale DVT PPx continu eliquis, asa Full code LOS 1 to 2 days Time Spent Managing Pts Care (In Minutes): 35
[2023-08-30 09:20] LABS: Magnesium 1.8 mg/dL (1.6-2.4); Phosphorus 3.2 mg/dL (2.5-4.9); Potassium 3.9 mEq/L (3.5-5.1)
[2023-08-30 09:33] LABS: Absolute Lymphocytes (CBC) 1.4 K/uL (0.7-4.9); Hematocrit 35.2 % (36.0-45.0); Lymphocytes % 13.2 % (15.3-44.8); MCV 90.6 fL (80-100); MPV 9.2 fL (7.6-11.3); Platelets 318 thou/uL (152-406); RBC Red Blood Cell Count 3.89 M/uL (3.86-4.86)
[2023-08-30] MEDS: ATORVASTATIN 10 MG TAB PO SCH (21:26)
[2023-08-31] MEDS: PANTOPRAZOLE 40MG TABLET PO SCH (06:30)
[2023-08-31 07:16] LABS: Absolute Lymphocytes (CBC) 1.6 K/uL (0.7-4.9); Hematocrit 33.1 % (36.0-45.0); Lymphocytes % 13.7 % (15.3-44.8); MCV 91.2 fL (80-100); Platelets 282 thou/uL (152-406); RBC Red Blood Cell Count 3.63 M/uL (3.86-4.86)
[2023-08-31 07:30] LABS: Magnesium 1.9 mg/dL (1.6-2.4); Phosphorus 3.4 mg/dL (2.5-4.9); Potassium 3.6 mEq/L (3.5-5.1)
[2023-08-31] MEDS: INSULIN REGULAR (HUMAN) 100 UNIT/ML SQ SCH ×4 (07:30→21:00)
[2023-08-31] MEDS: APIXABAN 2.5 MG TABLET PO SCH ×2 (09:04→20:45)
[2023-08-31] MEDS: DOCUSATE NA 100 MG CAP PO SCH (09:04)
[2023-08-31] MEDS: AMIODARONE HCL 200 MG TAB PO SCH ×2 (09:04→20:46)
[2023-08-31] MEDS: METFORMIN ER 500 MG TAB PO SCH (09:04)
[2023-08-31] MEDS: ASPIRIN 81 MG CHEWABLE TABLET PO SCH (09:04)
--- NOTE | 2023-08-31 09:33 | P.PN ---
Date of Service: 08/31/23 Subjective: improving Denies abd pain No acute events overnight ROS: 10 point ROS as noted above, otherwise negative Physical exam GEN: Alert, oriented, NAD HEENT: Normal conjunctiva, sclera anicteric CV: Regular rate and rhythm, no edema Pulm: Nonlabored respirations on room air ABD: Soft, nontender, nondistended MSK: No joint tenderness Integumentary: No rashes Neuro: Normal speech, normal affect Vitals reviewed Problem List Trauma, frequent falls vertigo Fracture to medial left clavicle without dislocation of the supraclavicular joint Sling to left arm,Pain control Physical therapy-worked with PT, still having intermittent dizziness although improving Lives at home alone, uses walker, now limited with left clavicle fracture Had 5 falls in one day prior to hospitalization had not had issues while using the walker until the last week or so continue PT eval Possible SNF placement-pending auth Nausea/vomiting Possibly related to benzodiazepine withdrawal Restarted alprazolam 1 mg p.o. twice daily improving with restarted benzodiazepine Urine culture positive for staph epidermidis-likely contaminant Leukocytosis-resolved UA positive leukocyte esterase 250, WBC 20-50 Urine culture showed Staph epidermidis-not sensitive to Rocephin which patient has been on White blood cell count improved with IV fluids, no fevers or urinary symptoms reported Hold off on additional anitbiotics given that patient has been on rocephin-not sensitive, not having any urinary symptoms/WBC normalalized/no fevers probable contaminant Status post TAVR procedure Procedure performed first week of July, discharge paperwork July 26 echo ordered Hypertension HLD Start home medication DM 2- NIDDM Accu-Check with sliding scale DVT PPx continu eliquis, asa Full code LOS 1 to 2 days Time Spent Managing Pts Care (In Minutes): 35
[2023-08-31] MEDS ORDERED: POTASSIUM CL SA 10 MEQ TAB PO ONE (10:59)
[2023-08-31] MEDS: ALPRAZOLAM 1 MG TABLET PO PRN (20:45)
[2023-08-31] MEDS: ATORVASTATIN 10 MG TAB PO SCH (20:46)
[2023-09-01 00:08] VITALS: O2SAT 93
[2023-09-01] MEDS: PANTOPRAZOLE 40MG TABLET PO SCH (05:37)
[2023-09-01] MEDS: INSULIN REGULAR (HUMAN) 100 UNIT/ML SQ SCH (07:30)
[2023-09-01] MEDS: METFORMIN ER 500 MG TAB PO SCH (08:16)
[2023-09-01] MEDS: ASPIRIN 81 MG CHEWABLE TABLET PO SCH (08:16)
[2023-09-01] MEDS: AMIODARONE HCL 200 MG TAB PO SCH (08:16)
[2023-09-01] MEDS: APIXABAN 2.5 MG TABLET PO SCH (08:16)
[2023-09-01] MEDS: DOCUSATE NA 100 MG CAP PO SCH (08:16)
--- NOTE | 2023-09-01 08:37 | ECHO ---
HEIGHT: 5 ft 2 in WEIGHT: 200 lb 9.931 oz DATE OF STUDY: 08/28/[address]: Sawyer Howard NP 2-DIMENSIONAL: YES M.MODE: YES DOPPLER: YES COLOR FLOW: YES TDS: PORTABLE: YES DEFINITY: BUBBLE STUDY: DIAGNOSIS: MULTIPLE FALLS, POSSIBLE SYNCOPE, RECENT AORTIC VALVE REPAIR CARDIAC HISTORY: CATHERIZATION: NO SURGERY: YES PROSTHETIC VALVE: YES PACEMAKER: NO MEASUREMENTS (cm) DIASTOLIC (NORMALS) SYSTOLIC (NORMALS) IVSd 1.1 (0.6-1.2) LA Diam 2.9 (1.9-4.0) LVEF 59% LVIDd 4.3 (3.5-5.7) LVIDs 2.9 (2.0-3.5) %FS 31% LVPWd 1.1 (0.6-1.2) Ao Diam 2.1 (2.0-3.7) 2 DIMENSIONAL ASSESSMENT: RIGHT ATRIUM: NORMAL LEFT ATRIUM: NORMAL RIGHT VENTRICLE: NORMAL LEFT VENTRICLE: NORMAL TRICUSPID VALVE: MILD TRICUSPID REGURGITATION MITRAL VALVE: MITRAL ANNULAR CALCIFICATION PULMONIC VALVE: NORMAL AORTIC VALVE: BIOPROSTHESIS IS PRESENT PERICARDIAL EFFUSION: NONE AORTIC ROOT: NORMAL LEFT VENTRICULAR WALL MOTION: NORMAL DOPPLER/COLOR FLOW: SEE BELOW COMMENTS: 1. NORMAL LEFT VENTRICULAR EJECTION FRACTION 60-65% WITH NORMAL WALL MOTION 2. AORTIC VALVE BIOPROSTHESIS IS PRESENT AND FUNCTIONING NORMAL 3. SEVERE MITRAL ANNULAR CALCIFICATION WITH MILD MITRAL STENOSIS AND MILD MITRAL REGURGITATION 4. TRACE AORTIC INSUFFICIENCY 5. MILD TRICUSPID REGURGITATION TECHNOLOGIST: PAPI LOYA
--- NOTE | 2023-09-01 10:33 | P.DS ---
Admission Date: 08/27/23 Discharge Date: 09/01/23 Reason for Admission: Frequent falls Consultations: Cardiology-Dr. Hernández Brief History of Present Illness: Tara Saenz is an 83-year-old female with past medical history of arthritis, back pain, diabetesNIDDM, high cholesterol, hypertension, who presented to the ED complaining of frequent falls for the last week. She reports a TAVR and discharged 07/26/2023. She states she has fallen for the last week feeling like her legs are giving out from under her, not dizzy or lightheaded, she is aware when she falls, she tries to turn her rollator so she can sit quickly. She does report a history of vertigo. She is not sure if she has A-fib but is taking Eliquis twice daily, with last dose taken this morning (08/25). Of note, since her TAVR procedure she has not eaten well, complaining of hospital food in July and now, with frequent falls, she is unable to fix appropriate meals. Initial vitals BP 121 / 75; Pulse 101; Resp 18; Temp 97.2; Pulse Ox 94% on R/A; Lab evaluation WBC 14.5, H&H 11/33, sodium 134, potassium 4.0, bicarb 28, BUN/creatinine 15/0.98, serum glucose 99, UA positive for leukocyte esterase 250, WBC 20-50. Hospital Course: Problem List Trauma, frequent falls vertigo Fracture to medial left clavicle without dislocation of the supraclavicular joint Nausea/vomiting Urine culture positive for staph epidermidis-likely contaminant Status post TAVR procedure Hypertension HLD DM 2- NIDDM Patient was admitted to the hospital after sustaining multiple falls at home, she had questional urinary tract infection urine culture was positive for Staph epidermidis which is likely contaminant as patient was not having urinary symptoms and was afebrile. Vital signs were slightly orthostatic, her amlodipine was discontinued. She was working with physical therapy and had improvement in her symptoms although still slightly unsteady. Today she was approved [facility]. Will be discharged to [facility] nursing [facility]. Vital Signs/Physical Exam: Temp Pulse Resp BP Pulse Ox 96.9 F 71 16 123/45 L 98 09/01/23 08:00 09/01/23 08:00 09/01/23 08:00 09/01/23 08:00 09/01/23 08:00 General: Alert, In no apparent distress, Oriented x3 HEENT: Atraumatic, PERRLA, EOMI Neck: Supple, JVD not distended Respiratory: Clear to auscultation bilaterally, Normal air movement Cardiovascular: Regular rate/rhythm, Normal S1 S2 Gastrointestinal: Normal bowel sounds, No tenderness Musculoskeletal: No tenderness Integumentary: No rashes Neurological: Normal speech, Normal tone, Normal affect Laboratory Data at Discharge: WBC 11.90 thou/uL (4.3-10.9) H 08/31/23 06:56 Hgb 11.1 g/dL (12.0-15.0) L 08/31/23 06:56 Hct 33.1 % (36.0-45.0) L 08/31/23 06:56 Plt Count 282 thou/uL (152-406) 08/31/23 06:56 PT 13.1 SECONDS (9.5-12.5) H 08/25/23 13:53 INR 1.19 08/25/23 13:53 APTT 36.5 SECONDS (24.3-36.9) 08/25/23 13:53 Sodium 135 mEq/L (136-145) L 08/31/23 06:56 Potassium 3.6 mEq/L (3.5-5.1) 08/31/23 06:56 BUN 17 mg/dL (7-18) 08/31/23 06:56 Creatinine 0.86 mg/dL (0.55-1.02) 08/31/23 06:56 Glucose 91 mg/dL (74-106) 08/31/23 06:56 Phosphorus 3.4 mg/dL (2.5-4.9) 08/31/23 06:56 Magnesium 1.9 mg/dL (1.6-2.4) 08/31/23 06:56 Total Bilirubin 0.5 mg/dL (0.2-1.0) 08/25/23 13:53 AST 23 U/L (15-37) 08/25/23 13:53 ALT 19 U/L (13-56) 08/25/23 13:53 Alkaline Phosphatase 71 U/L (45-117) 08/25/23 13:53 Triglycerides 76 mg/dL (<150) 08/26/23 03:03 Cholesterol 139 mg/dL (<200) 08/26/23 03:03 HDL Cholesterol 66 mg/dL (40-60) H 08/26/23 03:03 Cholesterol/HDL Ratio 2.11 08/26/23 03:03 Home Medications: Amlodipine [Norvasc*] 10 mg PO DAILY 12/10/14 Hydrocodone Bit/Acetaminophen [Hydrocodon-Acetaminophn 10-325] 10 mg PO TIDP PRN 12/10/14 Lisinopril/Hydrochlorothiazide [Zestoretic 10-12.5 mg Tablet] 10 - 12.5 mg PO DAILY 12/10/14 Metformin HCl [Glucophage*] 500 mg PO DAILY 12/10/14 Simvastatin [Zocor*] 20 mg PO DAILY 12/10/14 Alprazolam [Alprazolam ER] 1 mg PO BIDP PRN 07/21/20 Aspirin Chewable [Aspirin Chewable*] 81 mg PO DAILY 07/21/20 Docusate Sodium [Stool Softener] 100 mg PO DAILY 07/21/20 Amiodarone HCl [Cordarone*] 1 tab PO BID 08/26/23 Apixaban [Eliquis *] 1 tab PO BID 08/26/23 Physician Discharge Instructions: Patient was admitted to the hospital after sustaining multiple falls at home, she had questional urinary tract infection urine culture was positive for Staph epidermidis which is likely contaminant as patient was not having urinary symptoms and was afebrile. Vital signs were slightly orthostatic, her amlodipine was discontinued. She was working with physical therapy and had improvement in her symptoms although still slightly unsteady. Today she was approved [facility] placement at [facility]. Will be discharged to [facility] nursing [facility]. Please continue home medications as prescribed Follow-up with primary care doctor 1 to 2 weeks after discharge from skilled facility Activity: Fall precautions Followup: Emelyn Sánchez NP [Primary Care Provider] - Time spent managing pt's care (in minutes): 30
--- NOTE | 2023-09-01 11:14 | P.PN ---
Subjective Date of Service: 09/01/23 Chief Complaint: Frequent falls Subjective: Improving, Doing well Review of Systems 10-point ROS is otherwise unremarkable Physical Examination - Vital Signs Temperature: 96.9 F Blood Pressure: 123/45 Pulse: 71 Respirations: 16 Pulse Ox (%): 98 - Physical Exam General: Alert, In no apparent distress, Oriented x3 HEENT: Atraumatic, Normocephalic, PERRLA Neck: Supple, 2+ carotid pulse no bruit, JVD not distended Respiratory: Clear to auscultation bilaterally, Normal air movement Cardiovascular: No edema, Normal pulses Capillary refill: <2 Seconds Gastrointestinal: Normal bowel sounds, Soft and benign Musculoskeletal: No clubbing, No swelling Integumentary: No rashes, No breakdown Neurological: Normal speech, Normal tone Lymphatics: No axilla or inguinal lymphadenopathy External genitalia: Deferred Rectal: Deferred Assessment And Plan - Current Problems (Diagnosis) (1) Status post transcatheter aortic valve replacement Current Visit: Yes Status: Acute Plan: Pt recently 08/25/23 had ECHO that showed LVH and mild aortic stenosis. Medicine wishes to have another ECHO for re-evaluation ECHO done yesterday, will review Held Amlodipine yesterday, VSS this am 138/53, 80, 96%, creatinine 0.69. ECHO with properly functioning valve, no pt reported cardiac symptoms, Cardiology will sign off (2) Nonspecific dizziness Current Visit: Yes Status: Acute Plan: As pt takes anticoagulation, care and assistive devices may be necessary. Orthostatic hypotension present, will decrease blood pressure medication and see if that helps as pt is now euvolemic. Hold amlodipine, continue asa, Eliquis, atorvastatin, and amiodarone. 08/29/23 - current BP 138/53, pt feeling better.
[2023-09-01 13:16] VITALS: BP 119/57; TEMP 97
== END 2023-09-01 13:50 | DRG 563 ==
LOC: ER 13:13 → ERHOLD 18:01 → 4TH 08-26 19:54 → OBSVTOIN 08-27 12:27
PROVIDERS: ADMIT Internal Medicine; ATTEND Hospitalist
DX: S42.012A Anterior displaced fracture of sternal end of left clavicle, initial encounter for closed fracture (principal); N39.0 Urinary tract infection, site not specified; I95.1 Orthostatic hypotension; I10 Essential (primary) hypertension; E78.00 Pure hypercholesterolemia, unspecified; M19.90 Unspecified osteoarthritis, unspecified site; E11.9 Type 2 diabetes mellitus without complications; I35.0 Nonrheumatic aortic (valve) stenosis; B95.7 Other staphylococcus as the cause of diseases classified elsewhere; R29.6 Repeated falls; R42 Dizziness and giddiness; Z60.2 Problems related to living alone; Z88.1 Allergy status to other antibiotic agents; Z85.3 Personal history of malignant neoplasm of breast; Z95.2 Presence of prosthetic heart valve; Z79.84 Long term (current) use of oral hypoglycemic drugs; Z91.81 History of falling; Z90.12 Acquired absence of left breast and nipple; Z79.82 Long term (current) use of aspirin; Z79.899 Other long term (current) drug therapy; Z90.710 Acquired absence of both cervix and uterus; W19.XXXA Unspecified fall, initial encounter; Y99.9 Unspecified external cause status; Y93.9 Activity, unspecified; Y92.019 Unspecified place in single-family (private) house as the place of occurrence of the external cause
CPT/HCPCS: 36415; 70450; 71250; 72125; 80048; 80061; 80076; 81001; 82947; 83735; 83880; 84100; 84439; 84443; 84484; 85025; 85610; 85730; 86850; 86900; 86901; 87077; 87086; 87088; 87186; 93005; 93306; 97110; 97116; 97161; 97530; 99284; 99285; G0378; J0696; J2405; J3475; J7030

== ENCOUNTER 2023-10-04 12:34 | Observation (INO) | payer OTHER ==
--- OUTSIDE RECORDS SUMMARY | 2023-10-04 12:38 | XMS REPORT | Continuity of Care Document ---
Author Name Unknown Address [address] [facility] [address] [place] [address] [facility] thconnect Address [address] [facility] [address] [place] [address] Care Team Providers Care Sample Examiner Name Role Phone Pcp, Patient Does Not Have A Primary Care Physic kacy Doctor Unassigned, [place] Attending Clinician U Quita Peters MD Attending Clinician [phone] QUITA DOW Attending Clinician UnavailQUITA Polanco Attending Clinician Unavailchriss e Apolinar Rankin Attending Clinician Unavailchriss e GC_GCBZW_Kadiyala_S Attending Clinician CRISTIAN Horan Attending Clinician Unavailable Apolinar Rankin Admitting Clinician Unavailchriss e GC_GCBZW_Kadiyala_S Admitting Clinician CRISTIAN Horan Admitting Clinician Unavailable Payers Payer Name Policy Type Policy Number Effective Date Expirati on Date Source [facility] - MEDICARE COMPLETE (MEDICARE REPLACEMENT HMO) [id number] Allergies, Adverse Reactions, Alerts Allergy Name Allergy Type Status Severity Reaction(s) Onset Date Inactive Date Treating Clinician Comments Source diphenhy dramine DA Active U NAUSEA/VOMIT ING 2022-09 00:00: 00 [facility] NO KNOWN ALLERGIE S Drug Class Active [facility] Social History Social Habit Start Date Stop Date Quantity Comments Source [facility] History of Social function 2023-09-19 00:00:00 2023-09-19 00:00:00 [facility] Sex Assigned At 1940 00:00:00 1940 00:00:00 [facility] Smoking Status Start Date Stop Date Source Tobacco smoking consumption unknown [facility] Vital Signs Vital Name Observation Time Observation Value Comments Kymberly butler Systolic blood pressure 2023-09-19 16:15:00 135 mm[Hg] [place] [facility] Diastolic blood pressure 2023-09-19 16:15:00 63 mm[Hg] [place] [facility] Heart rate 2023-09-19 16:15:00 87 /min [facility] Body height 2023-09-19 16:15:00 162.6 cm [facility] Body weight 2023-09-19 16:15:00 85.276 kg [facility] BMI 2023-09-19 16:15:00 32.27 kg/m2 [facility] Oxygen saturation in Arterial blood by Pulse oximetry 2023-09-19 16:15:00 95 /min [facility] Procedures Procedure Date / Time Performed Performing Clinicia n Source EXTERNAL PROVIDER RECORDS 2023-10-03 06:01:00 Doctor Unassigned, [place] [facility] NON-UTMB ORDERS 2023-09-19 06:01:00 Doctor Unass igned, [place] [facility] [id number] 2023-07-30 00:00:00 CHAAB.01 [facility] [id number] 2023-07-30 00:00:00 CHAAB.01 [facility] [id number] 2023-07-30 00:00:00 CHAAB.01 [facility] Encounters Start Date/Time End Date/Time Encounter Type Admission Type Attending Clinicians Care Facility Care Department Encounter ID Source 2023-10-03 00:00:00 2023-10-03 00:00:00 Orders Only Doctor Unassigned, [place] [facility] [id number] [facility] 2023-09-19 09:30:00 2023-09-19 10:24:12 Office Visit DowQuita Oumou [facility] [id number] [id number] [id number] [id number] [facility] 2023-09-19 09:30:00 2023-09-19 10:24:12 Outpatient R QUITA DOW CRAIG [facility] [id number] [facility] 2023-09-19 00:00:00 2023-09-19 00:00:00 Orders Only Doctor Unassigned, [place] [facility] [id number] [id number] [id number] [facility] 2023-07-26 03:56:00 2023-08-05 16:50:00 Inpatient Apolinar Lopez HCACL INTE [id number] [facility] 2023-07-23 00:00:00 2023-07-23 00:00:00 Outpatient GC_GCBZW_Ka diyala_S PRIV PRIV [id number] [facility] 2023-07-21 00:00:00 2023-07-21 00:00:00 Outpatient GC_GCBZW_Ka diyala_S PRIV PRIV [id number] [facility] 2017-03-18 14:00:00 2017-05-04 23:59:00 [place] CRISTIAN [facility] [place] [id number] [facility] Results Test Description Test Time Test Comments Results Result Co mments Source GLUCOSE [id number] 08:22:00* Test Item Value Reference Range Interpretation Comme nts GLUCOSE BEDSIDE (test code = GLUBED) 100 MG/DL 70-110 N Performed by cer tified blasting machine operator at [facility] BASIC METABOLIC [id number] 05:52:00* Test Item Value Reference Range Interpretation Comme nts SODIUM (test code = NA) 133 mEq/L 134-147 L POTASSIUM (test code = K) 4.7 mEq/L 3.4-5.0 N CHLORIDE (test code = CL) 99 mEq/L 100-108 L CARBON DIOXIDE (test code = CO2) 30 mEq/l 21-33 N ANION GAP (test code = GAP) 9 0-20 N GLUCOSE (test code = GLU) 91 mg/dL 77-141 N NOTE: NEW NORMAL RANGE BLOOD UREA NITROGEN (test code = BUN) 7 mg/dL 7-25 N NOTE: NEW NORM AL RANGE GLOMERULAR FILTRATION RATE (test code = GFR) 84.7 70-80 H The Glomerular Filtration Rate is a calculated parameterbased on serum Creatinine, patient age and sex. GFR valuesless than 60 mL/min/1.73 square meters are indicative ofChronic Kidney Disease. Values less than 15 mL/min/1.73square meters indicate Kidney failure. The calculation forGFR is based on the CKD-EPI (2020) calculation. This formulais race indifferent and is the recommended formula for GFRby the National Kidney Foundation for Adults.The GFR will not calculate if the sex is unknown or if thepatient's age is <18 years. CREATININE (test code = CREAT) 0.7 mg/dL 0.6-1.3 N CALCIUM (test code = CA) 8.3 mg/dL 8.0-10.5 N [id number] 05:52:00* Test Item Value Reference Range Interpretation Comme nts MAGNESIUM (test code = MAG) 1.90 mg/dL 1.6-2.6 N NOTE: NEW NORMAL RANGE CBC W/AUTO [id number] 05:43:00* Test Item Value Reference Range Interpretation Comme nts WHITE BLOOD CELL (test code = WBC) 10.2 x10 3/uL 4.5-11.0 N RED BLOOD CELL (test code = RBC) 3.47 x10 6/uL 3.54-5.02 L HEMOGLOBIN (test code = HGB) 10.2 g/dL 11.0-15.0 L HEMATOCRIT (test code = HCT) 31.4 % 33.0-45.0 L MEAN CELL VOLUME (test code = MCV) 90.5 fL 81.0-99.0 N MEAN CELL HGB (test code = MCH) 29.4 pg 27.0-33.0 N MEAN CELL HGB CONCETRATION (test code = MCHC) 32.5 g/dL 33.0-37.0 L RED CELL DISTRIBUTION WIDTH CV (test code = RDW) 13.7 % 11.5-14.5 N RED CELL DISTRIBUTION WIDTH SD (test code = RDW-SD) 45.1 fL 37.0-54.0 N PLATELET COUNT (test code = PLT) 231 x10 3/uL 150-400 N MEAN PLATELET VOLUME (test c ode = MPV) 12.2 fL 7.0-9.0 H NEUTROPHIL % (test code = NT%) 66.9 % 56.0-77.0 N IMMATURE GRANULOCYTE % (test code = IG%) 1.5 % 0.0-2.0 N LYMPHOCYTE % (test code = LY%) 17.8 % 14.0-32.0 N MONOCYTE % (test code = MO%) 11.1 % 4.8-9.0 H EOSINOPHIL % (test code = EO%) 2.2 % 0.3-3.7 N BASOPHIL % (test code = BA%) 0.5 % 0.0-2.0 N NUCLEATED RBC % (test code = NRBC%) 0.0 % 0-0 N NEUTROPHIL # (test code = NT#) 6.84 x10 3/uL 2.0-7.6 N IMMATURE GRANULOCYTE # (test code = IG#) 0.15 x10 3/uL 0.00-0.03 H LYMPHOCYTE # (test code = LY#) 1.82 x10 3/uL 1.0-3.8 N MONOCYTE # (test code = MO#) 1.13 x10 3/uL 0.1-0.8 H EOSINOPHIL # (test code = EO#) 0.22 x10 3/uL 0.0-0.2 H BASOPHIL # (test code = BA#) 0.05 x10 3/uL 0.0-0.2 N NUCLEATED RBC # (test code = NRBC#) 0.00 x10 3/uL 0.0-0.1 N GLUCOSE [id number] 22:53:00* Test Item Value Reference Range Interpretation Comme nts GLUCOSE BEDSIDE (test code = GLUBED) 99 MG/DL 70-110 N Performed by cer tified blasting machine operator at [facility] GLUCOSE [id number] 16:38:00* Test Item Value Reference Range Interpretation Comme nts GLUCOSE BEDSIDE (test code = GLUBED) 123 MG/DL 70-110 H Performed by cer tified blasting machine operator at [facility] GLUCOSE [id number] 12:06:00* Test Item Value Reference Range Interpretation Comme nts GLUCOSE BEDSIDE (test code = GLUBED) 115 MG/DL 70-110 H Performed by cer tified blasting machine operator at [facility] POC ARTERIAL BLOOD [id number] 08:43:00* Test Item Value Reference Range Interpretation Comme nts POC ARTERIAL BLOOD GAS PH (t est code = POCPHA) 7.361 7.35-7.45 N POC ARTERIAL BLOOD GAS PCO2 (test code = SEBCMP8S) 36.3 mmHg 35.0-45 N POC TCO2 ARTERIAL (test code = POCTCO2) 21.6 POC ARTERIAL BLOOD GAS PO2 ( test code = EOHUO3A) 122.7 mmHg 80-100.0 H POC HCO3 ARTERIAL (test code = AEYATW0W) 20.5 MMOL/L 22.0-26.0 L POC BASE EXCESS (test code = POCBEA) -4.9 MMOL/L -4.0-4.0 L POC O2 SATURATION (test code = POCO2S) 98.6 % 90-100 N GLUCOSE [id number] 07:40:00* Test Item Value Reference Range Interpretation Comme nts GLUCOSE BEDSIDE (test code = GLUBED) 109 MG/DL 70-110 N Performed by cer tified blasting machine operator at [facility] BASIC METABOLIC [id number] 06:43:00* Test Item Value Reference Range Interpretation Comme nts SODIUM (test code = NA) 130 mEq/L 134-147 L POTASSIUM (test code = K) 4.4 mEq/L 3.4-5.0 N CHLORIDE (test code = CL) 102 mEq/L 100-108 N CARBON DIOXIDE (test code = CO2) 30 mEq/l 21-33 N ANION GAP (test code = GAP) 2 0-20 N GLUCOSE (test code = GLU) 119 mg/dL 77-141 N NOTE: NEW NORMAL RANGE BLOOD UREA NITROGEN (test code = BUN) 10 mg/dL 7-25 N NOTE: NEW NORM AL RANGE GLOMERULAR FILTRATION RATE (test code = GFR) 84.7 70-80 H The Glomerular Filtration Rate is a calculated parameterbased on serum Creatinine, patient age and sex. GFR valuesless than 60 mL/min/1.73 square meters are indicative ofChronic Kidney Disease. Values less than 15 mL/min/1.73square meters indicate Kidney failure. The calculation forGFR is based on the CKD-EPI (202) calculation. This formulais race indifferent and is the recommended formula for GFRby the National Kidney Foundation for Adults.The GFR will not calculate if the sex is unknown or if thepatient's age is <18 years. CREATININE (test code = CREAT) 0.7 mg/dL 0.6-1.3 N CALCIUM (test code = CA) 8.6 mg/dL 8.0-10.5 N [id number] 06:43:00* Test Item Value Reference Range Interpretation Comme nts MAGNESIUM (test code = MAG) 1.99 mg/dL 1.6-2.6 N NOTE: NEW NORMAL RANGE CBC W/AUTO [id number] 06:24:00* Test Item Value Reference Range Interpretation Comme nts WHITE BLOOD CELL (test code = WBC) 11.3 x10 3/uL 4.5-11.0 H RED BLOOD CELL (test code = RBC) 3.40 x10 6/uL 3.54-5.02 L HEMOGLOBIN (test code = HGB) 9.9 g/dL 11.0-15.0 L HEMATOCRIT (test code = HCT) 30.2 % 33.0-45.0 L MEAN CELL VOLUME (test code = MCV) 88.8 fL 81.0-99.0 N MEAN CELL HGB (test code = MCH) 29.1 pg 27.0-33.0 N MEAN CELL HGB CONCETRATION (test code = MCHC) 32.8 g/dL 33.0-37.0 L RED CELL DISTRIBUTION WIDTH CV (test code = RDW) 13.6 % 11.5-14.5 N RED CELL DISTRIBUTION WIDTH SD (test code = RDW-SD) 44.7 fL 37.0-54.0 N PLATELET COUNT (test code = PLT) 225 x10 3/uL 150-400 N MEAN PLATELET VOLUME (test c ode = MPV) 11.9 fL 7.0-9.0 H NEUTROPHIL % (test code = NT%) 69.8 % 56.0-77.0 N IMMATURE GRANULOCYTE % (test code = IG%) 1.0 % 0.0-2.0 N LYMPHOCYTE % (test code = LY%) 15.7 % 14.0-32.0 N MONOCYTE % (test code = MO%) 11.1 % 4.8-9.0 H EOSINOPHIL % (test code = EO%) 2.0 % 0.3-3.7 N BASOPHIL % (test code = BA%) 0.4 % 0.0-2.0 N NUCLEATED RBC % (test code = NRBC%) 0.0 % 0-0 N NEUTROPHIL # (test code = NT#) 7.92 x10 3/uL 2.0-7.6 H IMMATURE GRANULOCYTE # (test code = IG#) 0.11 x10 3/uL 0.00-0.03 H LYMPHOCYTE # (test code = LY#) 1.78 x10 3/uL 1.0-3.8 N MONOCYTE # (test code = MO#) 1.26 x10 3/uL 0.1-0.8 H EOSINOPHIL # (test code = EO#) 0.23 x10 3/uL 0.0-0.2 H BASOPHIL # (test code = BA#) 0.04 x10 3/uL 0.0-0.2 N NUCLEATED RBC # (test code = NRBC#) 0.00 x10 3/uL 0.0-0.1 N GLUCOSE [id number] 21:25:00* Test Item Value Reference Range Interpretation Comme nts GLUCOSE BEDSIDE (test code = GLUBED) 151 MG/DL 70-110 H Performed by cer tified blasting machine operator at [facility] - US SOFT TISSUE [id number] 21:17:00 [facility] 1940 Sex: F Name: EVELYN GIBSON [place] : 1940 Age/S: 83 / F [address] [place] [address] Unit #: [id number] Loc: [place] [address] Phys: Dayna Younger Acct: [id number] Dis Date: Status: ADM IN PHONE #: [phone] Exam Date: 08/03/20231737 FAX #: [phone] Reason: groin wounds bleeding. EXAMS: CPT CODE: [id number] US SOFT TISSUE TORSO 37913 EXAMINATION: - US SOFT TISSUE TORSO CLINICAL INDICATION: Female, 83 years old with groin wounds bleeding. COMPARISON: None TECHNIQUE: Grayscale and color Doppler evaluation of the bilateral inguinal canal is performed. FINDINGS: At the right inguinal canal, there is a hypoechoic fluid collection measuring 4.6 cm x 2.1 cm x 9 mm, no internal flow is appreciated. This likely represents hematoma. At the left inguinal canal, there are 2 small fluid collection is identified measuring 1.9 cm x 7 mm x 2 cm and 1.7 cm x 1.3 cm x 4 mm. No internal flow is appreciated. No identifiable pseudoaneurysm with respect the common femoral artery bilaterally. IMPRESSION: Bilateral small inguinal hematoma, no evidence of pseudoaneurysm or active bleeding. at 2116 Reported and signed by: Efrain Park M.D. CC: Apolinar Rankin MD; Dayna Younger Technologist: Elaine Zaman Trndcb Date/Time: 08/03/2023 (2116) [id number] Orig Print D/T: S: 08/03/2023 (2119) Probe: PAGE 1 Signed ReportGLUCOSE [id number] 17:12:00* Test Item Value Reference Range Interpretation Comme nts GLUCOSE BEDSIDE (test code = GLUBED) 128 MG/DL 70-110 H Performed by marissa junior blasting machine operator at [facility] GLUCOSE [id number] 12:54:00* Test Item Value Reference Range Interpretation Comme nts GLUCOSE BEDSIDE (test code = GLUBED) 145 MG/DL 70-110 H Performed by cer sandi blasting machine operator at [facility] BASIC METABOLIC [id number] 06:10:00* Test Item Value Reference Range Interpretation Comme nts SODIUM (test code = NA) 129 mEq/L 134-147 L POTASSIUM (test code = K) 4.2 mEq/L 3.4-5.0 N CHLORIDE (test code = CL) 99 mEq/L 100-108 L CARBON DIOXIDE (test code = CO2) 29 mEq/l 21-33 N ANION GAP (test code = GAP) 5 0-20 N GLUCOSE (test code = GLU) 106 mg/dL 77-141 N NOTE: NEW NORMAL RANGE BLOOD UREA NITROGEN (test code = BUN) 10 mg/dL 7-25 N NOTE: NEW NORM AL RANGE GLOMERULAR FILTRATION RATE (test code = GFR) 72.2 70-80 N The Glomerular Filtration Rate is a calculated parameterbased on serum Creatinine, patient age and sex. GFR valuesless than 60 mL/min/1.73 square meters are indicative ofChronic Kidney Disease. Values less than 15 mL/min/1.73square meters indicate Kidney failure. The calculation forGFR is based on the CKD-EPI (2020) calculation. This formulais race indifferent and is the recommended formula for GFRby the National Kidney Foundation for Adults.The GFR will not calculate if the sex is unknown or if thepatient's age is <18 years. CREATININE (test code = CREAT) 0.8 mg/dL 0.6-1.3 N CALCIUM (test code = CA) 8.6 mg/dL 8.0-10.5 N [id number] 06:10:00* Test Item Value Reference Range Interpretation Comme nts MAGNESIUM (test code = MAG) 2.26 mg/dL 1.6-2.6 NOTE: NEW NORMAL RANGE CBC W/AUTO [id number] 05:42:00* Test Item Value Reference Range Interpretation Comme nts WHITE BLOOD CELL (test code = WBC) 10.5 x10 3/uL 4.5-11.0 N RED BLOOD CELL (test code = RBC) 3.38 x10 6/uL 3.54-5.02 L HEMOGLOBIN (test code = HGB) 9.9 g/dL 11.0-15.0 L HEMATOCRIT (test code = HCT) 30.5 % 33.0-45.0 L MEAN CELL VOLUME (test code = MCV) 90.2 fL 81.0-99.0 N MEAN CELL HGB (test code = MCH) 29.3 pg 27.0-33.0 N MEAN CELL HGB CONCETRATION (test code = MCHC) 32.5 g/dL 33.0-37.0 L RED CELL DISTRIBUTION WIDTH CV (test code = RDW) 13.5 % 11.5-14.5 N RED CELL DISTRIBUTION WIDTH SD (test code = RDW-SD) 44.6 fL 37.0-54.0 N PLATELET COUNT (test code = PLT) 210 x10 3/uL 150-400 N MEAN PLATELET VOLUME (test c ode = MPV) 12.3 fL 7.0-9.0 H NEUTROPHIL % (test code = NT%) 68.6 % 56.0-77.0 N IMMATURE GRANULOCYTE % (test code = IG%) 1.0 % 0.0-2.0 N LYMPHOCYTE % (test code = LY%) 16.6 % 14.0-32.0 N MONOCYTE % (test code = MO%) 11.6 % 4.8-9.0 H EOSINOPHIL % (test code = EO%) 1.9 % 0.3-3.7 N BASOPHIL % (test code = BA%) 0.3 % 0.0-2.0 N NUCLEATED RBC % (test code = NRBC%) 0.0 % 0-0 N NEUTROPHIL # (test code = NT#) 7.20 x10 3/uL 2.0-7.6 N IMMATURE GRANULOCYTE # (test code = IG#) 0.11 x10 3/uL 0.00-0.03 H LYMPHOCYTE # (test code = LY#) 1.74 x10 3/uL 1.0-3.8 N MONOCYTE # (test code = MO#) 1.22 x10 3/uL 0.1-0.8 H EOSINOPHIL # (test code = EO#) 0.20 x10 3/uL 0.0-0.2 N BASOPHIL # (test code = BA#) 0.03 x10 3/uL 0.0-0.2 N NUCLEATED RBC # (test code = NRBC#) 0.00 x10 3/uL 0.0-0.1 N GLUCOSE [id number] 20:52:00* Test Item Value Reference Range Interpretation Comme nts GLUCOSE BEDSIDE (test code = GLUBED) 166 MG/DL 70-110 H Performed by cer tified blasting machine operator at [facility] GLUCOSE [id number] 18:08:00* Test Item Value Reference Range Interpretation Comme nts GLUCOSE BEDSIDE (test code = GLUBED) 113 MG/DL 70-110 H Performed by cer tified blasting machine operator at [facility] GLUCOSE [id number] 13:08:00* Test Item Value Reference Range Interpretation Comme nts GLUCOSE BEDSIDE (test code = GLUBED) 118 MG/DL 70-110 H Performed by cer tified blasting machine operator at [facility] CALCIUM [id number] 03:58:00* Test Item Value Reference Range Interpretation Comme nts CALCIUM IONIZED (test code = SANAZ) 1.11 MMOL/L 1.09-1.30 N BASIC METABOLIC [id number] 03:58:00* Test Item Value Reference Range Interpretation Comme nts SODIUM (test code = NA) 129 mEq/L 134-147 L POTASSIUM (test code = K) 4.2 mEq/L 3.4-5.0 N CHLORIDE (test code = CL) 99 mEq/L 100-108 L CARBON DIOXIDE (test code = CO2) 27 mEq/l 21-33 N ANION GAP (test code = GAP) 7 0-20 N GLUCOSE (test code = GLU) 110 mg/dL 77-141 N NOTE: NEW NORMAL RANGE BLOOD UREA NITROGEN (test code = BUN) 10 mg/dL 7-25 N NOTE: NEW NORM AL RANGE GLOMERULAR FILTRATION RATE (test code = GFR) 84.7 70-80 H The Glomerular Filtration Rate is a calculated parameterbased on serum Creatinine, patient age and sex. GFR valuesless than 60 mL/min/1.73 square meters are indicative ofChronic Kidney Disease. Values less than 15 mL/min/1.73square meters indicate Kidney failure. The calculation forGFR is based on the CKD-EPI (2020) calculation. This formulais race indifferent and is the recommended formula for GFRby the National Kidney Foundation for Adults.The GFR will not calculate if the sex is unknown or if thepatient's age is <18 years. CREATININE (test code = CREAT) 0.7 mg/dL 0.6-1.3 N CALCIUM (test code = CA) 8.8 mg/dL 8.0-10.5 N [id number] 03:58:00* Test Item Value Reference Range Interpretation Comme nts MAGNESIUM (test code = MAG) 1.84 mg/dL 1.6-2.6 N NOTE: NEW NORMAL RANGE CBC W/AUTO [id number] 03:31:00* Test Item Value Reference Range Interpretation Comme nts WHITE BLOOD CELL (test code = WBC) 14.7 x10 3/uL 4.5-11.0 H RED BLOOD CELL (test code = RBC) 4.15 x10 6/uL 3.54-5.02 N HEMOGLOBIN (test code = HGB) 12.0 g/dL 11.0-15.0 N HEMATOCRIT (test code = HCT) 37.1 % 33.0-45.0 N MEAN CELL VOLUME (test code = MCV) 89.4 fL 81.0-99.0 N MEAN CELL HGB (test code = MCH) 28.9 pg 27.0-33.0 N MEAN CELL HGB CONCETRATION (test code = MCHC) 32.3 g/dL 33.0-37.0 L RED CELL DISTRIBUTION WIDTH CV (test code = RDW) 13.2 % 11.5-14.5 N RED CELL DISTRIBUTION WIDTH SD (test code = RDW-SD) 43.5 fL 37.0-54.0 N PLATELET COUNT (test code = PLT) 239 x10 3/uL 150-400 N MEAN PLATELET VOLUME (test code = MPV) 12.0 fL 7.0-9.0 H NEUTROPHIL % (test code = NT%) 74.6 % 56.0-77.0 N IMMATURE GRANULOCYTE % (test code = IG%) 0.6 % 0.0-2.0 N LYMPHOCYTE % (test code = LY%) 12.7 % 14.0-32.0 L MONOCYTE % (test code = MO%) 10.4 % 4.8-9.0 H EOSINOPHIL % (test code = EO%) 1.4 % 0.3-3.7 N BASOPHIL % (test code = BA%) 0.3 % 0.0-2.0 N NUCLEATED RBC % (test code = NRBC%) 0.0 % 0-0 N NEUTROPHIL # (test code = NT#) 10.93 x10 3/uL 2.0-7.6 H IMMATURE GRANULOCYTE # (test code = IG#) 0.09 x10 3/uL 0.00-0.03 H LYMPHOCYTE # (test code = LY#) 1.87 x10 3/uL 1.0-3.8 N MONOCYTE # (test code = MO#) 1.52 x10 3/uL 0.1-0.8 H EOSINOPHIL # (test code = EO#) 0.21 x10 3/uL 0.0-0.2 H BASOPHIL # (test code = BA#) 0.05 x10 3/uL 0.0-0.2 N NUCLEATED RBC # (test code = NRBC#) 0.00 x10 3/uL 0.0-0.1 N GLUCOSE [id number] 16:35:00* Test Item Value Reference Range Interpretation Comme nts GLUCOSE BEDSIDE (test code = GLUBED) 111 MG/DL 70-110 H Performed by marissa junior blasting machine operator at [facility] - XR CHEST 1 [id number] 15:52:00 [facility] 1940 Sex: F FAX: Apolinar Banuelos MD [phone] [place]: St: [facility] FAX: Tabitha Herring [phone] ---- Name: EVELYN GIBSON [facility] : 1940 Age/S: 83/F [address] [place] [address] Blvd Unit #: [id number] Loc: [address] [place] [id number] Phys: Tabitha Herring Acct: [id number] Dis Date: Status: ADM IN PHONE #: [phone] Exam Date: 08/01/2023 1431 FAX #: [phone] Reason: afib RVR EXAMS: CPT CODE: [id number] XR CHEST 1 V [id number] Dictation location: C4. CHEST, FRONTAL VIEW HISTORY: afib RVR FINDINGS: Since 07/30/23, calcified granuloma seen in the right upper lobe. The lungs are otherwise clear. The heart size is normal. TAVR. Thoracic spondylosis. Left axillary node dissection. IMPRESSION: No evidence of acute cardiopulmonary disease. TAVR. at 1552 Reported and signed by: Sylvester Boothe M.D. CC: Apolinar Rankin MD; Tabitha Herring Technologist: RT Tahir(Viola) Trnscrd Date/Time/By: 08/01/2023 (2402) : By: [email or web address] Orig Print D/T: S: 08/01/2023 (5436) PAGE 1 Signed ReportGLUCOSE [id number] 11:32:00* Test Item Value Reference Range Interpretation Comme nts GLUCOSE BEDSIDE (test code = GLUBED) 129 MG/DL 70-110 H Performed by cer tified blasting machine operator at [facility] GLUCOSE [id number] 07:32:00* Test Item Value Reference Range Interpretation Comme nts GLUCOSE BEDSIDE (test code = GLUBED) 109 MG/DL 70-110 N Performed by [facility] tified blasting machine operator at [facility] BASIC METABOLIC [id number] 07:25:00* Test Item Value Reference Range Interpretation Comme nts SODIUM (test code = NA) 129 mEq/L 134-147 L POTASSIUM (test code = K) 4.0 mEq/L 3.4-5.0 N CHLORIDE (test code = CL) 98 mEq/L 100-108 L CARBON DIOXIDE (test code = CO2) 29 mEq/l 21-33 N ANION GAP (test code = GAP) 7 0-20 N GLUCOSE (test code = GLU) 119 mg/dL 77-141 N NOTE: NEW NORMAL RANGE BLOOD UREA NITROGEN (test code = BUN) 12 mg/dL 7-25 N NOTE: NEW NORM AL RANGE GLOMERULAR FILTRATION RATE (test code = GFR) 84.7 70-80 H The Glomerular Filtration Rate is a calculated parameterbased on serum Creatinine, patient age and sex. GFR valuesless than 60 mL/min/1.73 square meters are indicative ofChronic Kidney Disease. Values less than 15 mL/min/1.73square meters indicate Kidney failure. The calculation forGFR is based on the CKD-EPI (2020) calculation. This formulais race indifferent and is the recommended formula for GFRby the National Kidney Foundation for Adults.The GFR will not calculate if the sex is unknown or if thepatient's age is <18 years. CREATININE (test code = CREAT) 0.7 mg/dL 0.6-1.3 N CALCIUM (test code = CA) 9.1 mg/dL 8.0-10.5 N [id number] 07:25:00* Test Item Value Reference Range Interpretation Comme nts MAGNESIUM (test code = MAG) 1.90 mg/dL 1.6-2.6 N NOTE: NEW NORMAL RANGE CBC W/AUTO [id number] 07:02:00* Test Item Value Reference Range Interpretation Comme nts WHITE BLOOD CELL (test code = WBC) 13.7 x10 3/uL 4.5-11.0 H RED BLOOD CELL (test code = RBC) 4.22 x10 6/uL 3.54-5.02 N HEMOGLOBIN (test code = HGB) 12.2 g/dL 11.0-15.0 N HEMATOCRIT (test code = HCT) 37.9 % 33.0-45.0 N MEAN CELL VOLUME (test code = MCV) 89.8 fL 81.0-99.0 N MEAN CELL HGB (test code = MCH) 28.9 pg 27.0-33.0 N MEAN CELL HGB CONCETRATION (test code = MCHC) 32.2 g/dL 33.0-37.0 L RED CELL DISTRIBUTION WIDTH CV (test code = RDW) 13.3 % 11.5-14.5 N RED CELL DISTRIBUTION WIDTH SD (test code = RDW-SD) 43.7 fL 37.0-54.0 N PLATELET COUNT (test code = PLT) 218 x10 3/uL 150-400 N MEAN PLATELET VOLUME (test code = MPV) 12.0 fL 7.0-9.0 H NEUTROPHIL % (test code = NT%) 75.3 % 56.0-77.0 N IMMATURE GRANULOCYTE % (test code = IG%) 0.6 % 0.0-2.0 N LYMPHOCYTE % (test code = LY%) 11.3 % 14.0-32.0 L MONOCYTE % (test code = MO%) 11.3 % 4.8-9.0 H EOSINOPHIL % (test code = EO%) 1.2 % 0.3-3.7 N BASOPHIL % (test code = BA%) 0.3 % 0.0-2.0 N NUCLEATED RBC % (test code = NRBC%) 0.0 % 0-0 N NEUTROPHIL # (test code = NT#) 10.32 x10 3/uL 2.0-7.6 H IMMATURE GRANULOCYTE # (test code = IG#) 0.08 x10 3/uL 0.00-0.03 H LYMPHOCYTE # (test code = LY#) 1.55 x10 3/uL 1.0-3.8 N MONOCYTE # (test code = MO#) 1.55 x10 3/uL 0.1-0.8 H EOSINOPHIL # (test code = EO#) 0.17 x10 3/uL 0.0-0.2 N BASOPHIL # (test code = BA#) 0.04 x10 3/uL 0.0-0.2 N NUCLEATED RBC # (test code = NRBC#) 0.00 x10 3/uL 0.0-0.1 N GLUCOSE [id number] 16:20:00* Test Item Value Reference Range Interpretation Comme nts GLUCOSE BEDSIDE (test code = GLUBED) 107 MG/DL 70-110 N Performed by cer tified blasting machine operator at [facility] GLUCOSE [id number] 11:36:00* Test Item Value Reference Range Interpretation Comme nts GLUCOSE BEDSIDE (test code = GLUBED) 178 MG/DL 70-110 H Performed by cer tified blasting machine operator at [facility] GLUCOSE [id number] 07:36:00* Test Item Value Reference Range Interpretation Comme nts GLUCOSE BEDSIDE (test code = GLUBED) 99 MG/DL 70-110 N Performed by cer tified blasting machine operator at [facility] BASIC METABOLIC [id number] 05:15:00* Test Item Value Reference Range Interpretation Comme nts SODIUM (test code = NA) 128 mEq/L 134-147 L POTASSIUM (test code = K) 4.2 mEq/L 3.4-5.0 N CHLORIDE (test code = CL) 95 mEq/L 100-108 L CARBON DIOXIDE (test code = CO2) 29 mEq/l 21-33 N ANION GAP (test code = GAP) 8 0-20 N GLUCOSE (test code = GLU) 107 mg/dL 77-141 NOTE: NEW NORMAL RANGE BLOOD UREA NITROGEN (test code = BUN) 18 mg/dL 7-25 N NOTE: NEW NORM AL RANGE GLOMERULAR FILTRATION RATE (test code = GFR) 62.7 70-80 L The Glomerular Filtration Rate is a calculated parameterbased on serum Creatinine, patient age and sex. GFR valuesless than 60 mL/min/1.73 square meters are indicative ofChronic Kidney Disease. Values less than 15 mL/min/1.73square meters indicate Kidney failure. The calculation forGFR is based on the CKD-EPI (2020) calculation. This formulais race indifferent and is the recommended formula for GFRby the National Kidney Foundation for Adults.The GFR will not calculate if the sex is unknown or if thepatient's age is <18 years. CREATININE (test code = CREAT) 0.9 mg/dL 0.6-1.3 N CALCIUM (test code = CA) 9.1 mg/dL 8.0-10.5 N [id number] 05:15:00* Test Item Value Reference Range Interpretation Comme nts PHOSPHOROUS (test code = PHOS) 3.4 MG/DL 2.5-4.9 N [id number] 05:15:00* Test Item Value Reference Range Interpretation Comme nts MAGNESIUM (test code = MAG) 1.98 mg/dL 1.6-2.6 N NOTE: NEW NORMAL RANGE CALCIUM [id number] 05:15:00* Test Item Value Reference Range Interpretation Comme nts CALCIUM IONIZED (test code = SANAZ) 1.15 MMOL/L 1.09-1.30 N CBC W/AUTO [id number] 04:36:00* Test Item Value Reference Range Interpretation Comme nts WHITE BLOOD CELL (test code = WBC) 15.4 x10 3/uL 4.5-11.0 H RED BLOOD CELL (test code = RBC) 4.12 x10 6/uL 3.54-5.02 N HEMOGLOBIN (test code = HGB) 11.9 g/dL 11.0-15.0 N HEMATOCRIT (test code = HCT) 36.0 % 33.0-45.0 N MEAN CELL VOLUME (test code = MCV) 87.4 fL 81.0-99.0 N MEAN CELL HGB (test code = MCH) 28.9 pg 27.0-33.0 N MEAN CELL HGB CONCETRATION (test code = MCHC) 33.1 g/dL 33.0-37.0 N RED CELL DISTRIBUTION WIDTH CV (test code = RDW) 13.2 % 11.5-14.5 N RED CELL DISTRIBUTION WIDTH SD (test code = RDW-SD) 42.3 fL 37.0-54.0 N PLATELET COUNT (test code = PLT) 257 x10 3/uL 150-400 N MEAN PLATELET VOLUME (test code = MPV) 11.2 fL 7.0-9.0 H NEUTROPHIL % (test code = NT%) 76.5 % 56.0-77.0 N IMMATURE GRANULOCYTE % (test code = IG%) 0.8 % 0.0-2.0 N LYMPHOCYTE % (test code = LY%) 10.8 % 14.0-32.0 L MONOCYTE % (test code = MO%) 11.0 % 4.8-9.0 H EOSINOPHIL % (test code = EO%) 0.6 % 0.3-3.7 N BASOPHIL % (test code = BA%) 0.3 % 0.0-2.0 N NUCLEATED RBC % (test code = NRBC%) 0.0 % 0-0 N NEUTROPHIL # (test code = NT#) 11.78 x10 3/uL 2.0-7.6 H IMMATURE GRANULOCYTE # (test code = IG#) 0.13 x10 3/uL 0.00-0.03 H LYMPHOCYTE # (test code = LY#) 1.66 x10 3/uL 1.0-3.8 N MONOCYTE # (test code = MO#) 1.69 x10 3/uL 0.1-0.8 H EOSINOPHIL # (test code = EO#) 0.09 x10 3/uL 0.0-0.2 N BASOPHIL # (test code = BA#) 0.04 x10 3/uL 0.0-0.2 N NUCLEATED RBC # (test code = NRBC#) 0.00 x10 3/uL 0.0-0.1 N GLUCOSE [id number] 20:44:00* Test Item Value Reference Range Interpretation Comme nts GLUCOSE BEDSIDE (test code = GLUBED) 170 MG/DL 70-110 H Performed by [facility] tified blasting machine operator at [facility] GLUCOSE [id number] 16:19:00* Test Item Value Reference Range Interpretation Comme nts GLUCOSE BEDSIDE (test code = GLUBED) 79 MG/DL 70-110 N Performed by [facility] blasting machine operator at [facility] GLUCOSE [id number] 13:57:00* Test Item Value Reference Range Interpretation Comme nts GLUCOSE BEDSIDE (test code = GLUBED) 88 MG/DL 70-110 N Performed by [facility] tified blasting machine operator at [facility] GLUCOSE [id number] 13:57:00* Test Item Value Reference Range Interpretation Comme nts GLUCOSE BEDSIDE (test code = GLUBED) 108 MG/DL 70-110 N Performed by [facility] bl[facility] machine operator at [facility] - XR CHEST 1 [id number] 10:43:00 [facility] 1940 Sex: F FAX: Apolinar Banuelos MD [phone] [place]: St: ADM FAX: ThereseanastasiaKameron PHILLIPS [phone] ----- Name: EVELYN GIBSON [facility] : 1940 Age/S: 83/F [address] [place] [address] Unit #: [id number] Loc: [place] [address] Phys: Kameron Degroot NP Acct: [id number] Dis Date: Status: ADM IN PHONE #: [phone] Exam Date: 07/30/2023 104 FAX #: [phone] Reason: TAVR EXAMS: CPT CODE: [id number] XR CHEST 1 V 39434 EXAM: - XR CHEST 1 V INDICATION: TAVR Technique: Frontal view Location: T18 Findings and impression: No acute cardiopulmonary process seen. Lungs appear clear. No pleural effusion seen. Cardiomediastinal silhouette appears unremarkable. Osseous structures appear unremarkable. at 1043 Reported and signed by: Hussein Goldstein M.D. CC: Apolinar Rankin MD; Kameron Degroot NP Technologist: RT Favio(R) Trnscrd Date/Time/By: 07/30/2023 (1043) : By: [id number] [facility] Print D/T: S: 07/30/2023 (7202) PAGE 1 Signed [id number]-[id number] 08:42:00 * Test Item Value Reference Range Interpretation Comme nts ACT-ISTAT (test code = ACTI) 276 SEC 74-137 H Performed by cer tified blasting machine operator at [facility] [id number] 08:23:00* Test Item Value Reference Range Interpretation Comme nts ACT-ISTAT (test code = ACTI) 287 SEC 74-137 H Performed by cer tified blasting machine operator at [facility] [id number] 03:41:00* Test Item Value Reference Range Interpretation Comme nts MAGNESIUM (test code = MAG) 1.97 mg/dL 1.6-2.6 N NOTE: NEW NORMAL RANGE BASIC METABOLIC [id number] 03:16:00* Test Item Value Reference Range Interpretation Comme nts SODIUM (test code = NA) 129 mEq/L 134-147 L POTASSIUM (test code = K) 4.0 mEq/L 3.4-5.0 N CHLORIDE (test code = CL) 94 mEq/L 100-108 L CARBON DIOXIDE (test code = CO2) 30 mEq/l 21-33 N ANION GAP (test code = GAP) 9 0-20 N GLUCOSE (test code = GLU) 79 mg/dL 77-141 N NOTE: NEW NORMAL RANGE BLOOD UREA NITROGEN (test code = BUN) 19 mg/dL 7-25 N NOTE: NEW NORM AL RANGE GLOMERULAR FILTRATION RATE (test code = GFR) 62.7 70-80 L The Glomerular Filtration Rate is a calculated parameterbased on serum Creatinine, patient age and sex. GFR valuesless than 60 mL/min/1.73 square meters are indicative ofChronic Kidney Disease. Values less than 15 mL/min/1.73square meters indicate Kidney failure. The calculation forGFR is based on the CKD-EPI (2020) calculation. This formulais race indifferent and is the recommended formula for GFRby the National Kidney Foundation for Adults.The GFR will not calculate if the sex is unknown or if thepatient's age is <18 years. CREATININE (test code = CREAT) 0.9 mg/dL 0.6-1.3 N CALCIUM (test code = CA) 9.1 mg/dL 8.0-10.5 N COMMENTS: To be done morning of Heart CathPROTHROMBIN [id number] 03:13:00* Test Item Value Reference Range Interpretation Comme nts PROTHROMBIN TIME PATIENT (test code = PTP) 11.5 SECONDS 9.3-12.9 N INTERNATIONAL NORMAL RATIO (test code = INR) 1.0 0.8-1.2 N TARGET INR BY INDICATION Indication INR1. Prophylaxis of venous thrombosis 2.0 - 3.0 (orthopedic surgery), Prophylaxis of venous thrombosis (other than high-risk surgery), Treatment of Deep Vein Thrombosis/Pulmonary Embolism, Prevention of systemic embolism - Tissue heart valves, Acute Myocardial Infarction (to prevent systemic embolism), Valvular heart disease, Atrial Fibrillation, Bileaflet mechanical valve in aortic position.2. Mechanical prosthetic valves (high risk), 2.5 - 3.5 Presence of Lupus Anticoagulant or Antiphospholipid Antibodies, Prevention of systemic embolism - Acute Myocardial Infarction (to prevent recurrent infarct). THROMBOPLASTIN TIME [id number] 03:13:00* Test Item Value Reference Range Interpretation Comme nts THROMBOPLASTIN TIME PARTIAL (test code = PTT) 40.3 Seconds 25.0-39.5 H Therapeutic Rang e: 50.4 - 88.3 Seconds Effective 01/05/2019 CBC W/AUTO [id number] 03:01:00* Test Item Value Reference Range Interpretation Comme nts WHITE BLOOD CELL (test code = WBC) 11.0 x10 3/uL 4.5-11.0 N RED BLOOD CELL (test code = RBC) 4.54 x10 6/uL 3.54-5.02 N HEMOGLOBIN (test code = HGB) 13.1 g/dL 11.0-15.0 N HEMATOCRIT (test code = HCT) 40.0 % 33.0-45.0 N MEAN CELL VOLUME (test code = MCV) 88.1 fL 81.0-99.0 N MEAN CELL HGB (test code = MCH) 28.9 pg 27.0-33.0 N MEAN CELL HGB CONCETRATION (test code = MCHC) 32.8 g/dL 33.0-37.0 L RED CELL DISTRIBUTION WIDTH CV (test code = RDW) 13.1 % 11.5-14.5 N RED CELL DISTRIBUTION WIDTH SD (test code = RDW-SD) 42.2 fL 37.0-54.0 N PLATELET COUNT (test code = PLT) 258 x10 3/uL 150-400 N MEAN PLATELET VOLUME (test c ode = MPV) 11.7 fL 7.0-9.0 H NEUTROPHIL % (test code = NT%) 69.8 % 56.0-77.0 N IMMATURE GRANULOCYTE % (test code = IG%) 0.5 % 0.0-2.0 N LYMPHOCYTE % (test code = LY%) 17.5 % 14.0-32.0 N MONOCYTE % (test code = MO%) 11.1 % 4.8-9.0 H EOSINOPHIL % (test code = EO%) 0.8 % 0.3-3.7 N BASOPHIL % (test code = BA%) 0.3 % 0.0-2.0 N NUCLEATED RBC % (test code = NRBC%) 0.0 % 0-0 N NEUTROPHIL # (test code = NT#) 7.63 x10 3/uL 2.0-7.6 H IMMATURE GRANULOCYTE # (test code = IG#) 0.06 x10 3/uL 0.00-0.03 H LYMPHOCYTE # (test code = LY#) 1.92 x10 3/uL 1.0-3.8 N MONOCYTE # (test code = MO#) 1.22 x10 3/uL 0.1-0.8 H EOSINOPHIL # (test code = EO#) 0.09 x10 3/uL 0.0-0.2 N BASOPHIL # (test code = BA#) 0.03 x10 3/uL 0.0-0.2 N NUCLEATED RBC # (test code = NRBC#) 0.00 x10 3/uL 0.0-0.1 N COMMENTS: To be done morning of Heart Cath- CTA HEART W CN ART/[id number] 00:00:00[facility] : 1940 Sex: F Name: EVELYN GIBSON [facility] [place] : 1940 Age/S: 83 / F [address] [place] [address] Blvd Unit #: [id number] Loc: [place] [address] Phys: Heaven Patel Viola DATA ANALYTICS DEVELOPER Acct: [id number] Dis Date: Status: ADM IN PHONE #: [phone] Exam Date: 07/28/2023 1323 FAX #: [phone] Reason: herb for Exam: AV STENOSIS EXAMS: CPT CODE: [id number] CTA HEART W CN ART/GRAFTS 88245 Radiation Dose CTDIVOL = 2.12 (mGy): DLP = 44.64 (mGy-cm) Radiation Dose CTDIVOL = 2.12 (mGy): DLP = 44.64 (mGy-cm) Radiation Dose CTDIVOL = 2.12 (mGy): DLP = 44.64 (mGy-cm) PROCEDURE INFORMATION: Exam: CTA Heart And Coronary Arteries With Contrast Exam date and time: 07/28/2023 1:06 PM Age: 83 years old Clinical indication: Other: A v stenosis TECHNIQUE: Imaging protocol: CT angiography of [...] 1 Signed Report (CONTINUED) Name: EVELYN GIBSON : 1940 Age/S: 83 / F [address] [place] [address] Blvd Unit #: [id number] Loc: [place] [address] Phys: Heaven Patel DATA ANALYTICS DEVELOPER Acct: [id number] Dis Date: Status: ADM IN PHONE #: [phone] Exam Date: 07/28/2023 1323 FAX #: [phone] Reason: herb for Exam: AV STENOSIS EXAMS: CPT CODE: [id number] CTA HEART W CN ART/GRAFTS 88103 (Continued) Annular/Subannular calcification: Moderate burden. There are [...] of Valsalva (noncoronary): 33 mm Mid ascending aortadiameter: 34 mm LA chamber size: Mildly dilated. Myocardium: No calcification or fatty metaplasia to suggest prior infarct. Coronary arteries: Mild-moderate burden of calcified coronary plaque. Thereis right coronary dominance. Pericardium: No thickening, calcification or effusion. IMPRESSION: Aortic root measurements provided for TAVR planning. Aortic annular area: 427 mm2 High risk aortic rootfeatures: None. PROCEDURE INFORMATION: Exam: CTA Chest With Contrast CTAAbdomen and Pelvis With Contrast Exam date and time: 07/28/2023 1:06 PM Age: 83 years old Clinical indication: Other: Av stenosis TECHNIQUE: Imaging protocol: Computed tomographic angiography of the chest with contrast. Exam focused on the arteries. Computed tomographic angiography of the abdomen and pelvis with contrast. Exam focused on the arteries. 3D rendering (Not supervised by radiologist):MIP and/or 3D reconstructed images were created by the technologist. Radiation optimization: All CTscans at this facility use at least one [...] 2 Signed Report (CONTINUED) Name: EVELYN GIBSON [facility] [place] : 1940 Age/S: 83 / F [address] [place], [place] [address]vd Unit #: [id number] Loc: [place] [address] Phys: JorgeHeaven DATA ANALYTICS DEVELOPER Acct: [id number] Dis Date: Status: ADM IN PHONE #: [phone] Exam Date: 07/28/2023 1323 FAX#: [phone] Reason: herb for Exam: AV STENOSIS EXAMS: CPT CODE: [id number] CTA HEART W CN ART/GRAFTS 17692 (Continued) patient has received 0 known CTs and 0 known cardiac nuclear medicine studies in the 12 months prior to the current study. COMPARISON: DX XR CHEST 2 V 07/28/2023 9:42 AM RADIATION DOSE METRICS: CTDI volume (mGy): 2.12 Total DLP (mGy-cm): 44.64 FINDINGS: VASCULATURE: Aorta: Noaortic aneurysm. No aortic dissection. Celiac trunk and mesenteric arteries: No occlusion or signifi cant stenosis. Renal arteries: No occlusion or significant stenosis. Right iliofemoral arteries: Mild calcification. Moderate tortuosity. Minimal luminal diameter 8 mm at the right common femoral artery. Left iliofemoral arteries: Mild calcification. Moderate tortuosity. Minimal luminal diameter 8mm at the left common femoral artery. CHEST: Lungs: Mild emphysema. No consolidation. No masses. Pleural spaces: Unremarkable. No pneumothorax. No pleural effusion. ABDOMEN AND PELVIS: Liver: A few well-circumscribed hypodense lesions are present throughout the liver, incompletely characterized butfavoring benign hepatic cysts. Gallbladder and bile ducts: [...] 3 Signed Report (CONTINUED) Name: EVELYN GIBSON [facility] Cayla Ferr[place] :1940 Age/S: 83 / F [address] [place] [address] Unit #: [id number] Loc: [place] [address] Phys: Heaven aPtel NP Acct: [id number] Dis Date: Status: ADM IN PHONE #: [phone] Exam Date: 07/28/2023 1323 FAX #: [phone] Reason: herb for Exam: AV STENOSIS EXAMS: CPT CODE: [id number] CTA HEART W CN ART/GRAFTS 77744 (Continued) 1. Patent bilateral iliofemoral arteries without significant stenosis. 2. Mild emphysema. COMMENTS: Unless otherwise specified, incidental findings do not require dedicated imaging and follow-up. Electronically Signed by Augusta Camp on 04/2023 at 0418 Reported and signed by: Kar Camp M.D. CC: Heaven Patel NP; Apolinar Rankin MD Technologist:Dipak Dumont Jr, RT(R)(CT) CTDI: DLP: Trnscb Date/Time: 07/30/2023 (417) t.PELONR.CM29 Orig Print D/T: S: 07/30/2023 (041) PAGE 4 Signed Report- CT ANGIO [id number] 00:00:00 [facility] CAYLA FERRARAName: EVELYN GIBSON : 1940 Sex: F Name: EVELYN GIBSON [facility] Cayla Ferrara : 1940 Age/S: 83 / F [address] [place] [address] Blvd Unit #: [id number] Loc: [place] [address] Phys: JorgeHeaven DATA ANALYTICS DEVELOPER Acct: [id number] Dis Date: Status: ADM IN PHONE #: [phone] Exam Date: 07/28/2023 1324 FAX #: [phone] Reason: AV STENOSIS EXAMS: CPT CODE: [id number] CT ANGIO CHEST 64756 Radiation Dose CTDIVOL = 2.12 (mGy): DLP [...] coronary arteries, and bypass grafts (when present) withcontrast including 3D image postprocessing. Standard prospective cardiac-gated CAC scoring protocolwas used for image acquisition. Following intravenous contrast [...] is matched to clinical indication); or iterative reconstructio n. Contrast material: ISO 370; Contrast volume: 100 ml; Contrast route: INTRAVENOUS (IV); Pharmacological intervention: None. REPORTING DATA: Count of CT and Cardiac NM exams in prior 12 months: Thispatient has received 0 known CTs and 0 [...] 1 Signed Report (CONTINUED) Name: EVELYN GIBSON [facility] Cay[place] Ferr[place] : 1940 Age/S: 83 / F [address] [place] [address] Blvd Unit #: [id number] Loc: [place] [address] Phys: Heaven Patel Viola DATA ANALYTICS DEVELOPER Acct: [id number] Dis Date: Status: ADM IN PHONE #: [phone] Exam Date: 07/28/2023 1324 FAX #: [phone] Reason: AV STENOSIS EXAMS: CPT CODE: [id number] CT ANGIO CHEST 68608 (Continued) Annular/Subannular calcification: Moderate burden. There are [...] High risk aortic root features: None. PROCEDURE I NFORMATION: Exam: CTA Chest With Contrast CTA Abdomen [...] and/or 3D reconstructed images were created by thetechnologist. Radiation optimization: All CT scans at this [...] PAGE 2 Signed Report (CONTINUED) Name: EVELYN KENDRICK [facility] : 1940 Age/S: 83 / F [address] [place] [address] Unit #: [id number] Loc: [place] [address] Phys: Heaven Patel DATA ANALYTICS DEVELOPER Acct: [id number] Dis Date: Status: ADM IN PHONE #: [phone] Exam Date: 07/28/2023 1324 FAX #: [phone] Reason: AV STENOSIS EXAMS: CPT CODE: [id number] ANGIO CHEST 82746 (Continued) patient has received 0 known CTs [...] iliofemoral arteries: Mild calcification. Moderate tortuosity. Minimal lum inal diameter 8 mm at the left common femoral artery. CHEST: Lungs: Mild emphysema. No consolidation. No masses. Pleural spaces: Unremarkable. No pneumothorax. No pleural effusion. ABDOMEN AND PELVIS: Liver: A few well- circumscribed hypodense lesions are present throughout the liver, [...] PAGE 3 Signed Report (CONTINUED) [facility] 1940 Age/S: 83 / F [address] [place] [address] Blvd Unit #: [id number] Loc: [place] [address] Phys: Heaven Patel NP Acct: [id number] Dis Date: Status: ADM IN PHONE #: [phone] Exam Date: 07/28/2023 1324 FAX #: [phone] Reason: AV STENOSIS EXAMS: CPT CODE: [id number] CT ANGIO CHEST 33784 (Continued) 1. Patent bilateral iliofemoral arteries without significant stenosis. 2. Mild emphysema. COMMENTS: Unless otherwise specified, incidental findings do not require dedicated imaging and follow-up. at 0418 Reported and signed by: Kar Camp M.D. CC: Heaven Patel DATA ANALYTICS DEVELOPER; Apolinar Rankin MD Technologist:Dipak Dumont Jr, RT(R)(CT) CTDI: DLP: Trnscb Date/Time: 07/30/2023 (417) [email or web address].CM29 Orig Print D/T: S: 07/30/2023 (0711) PAGE 4 Signed Report- CTA ABD PEL W [id number] [facility] 1940 Sex: F Name: [facility] 1940 Age/S: 83 / F [address] [place] [address] Blvd Unit #: [id number] Loc: [place] [address] Phys: Heaven Patel Viola DATA ANALYTICS DEVELOPER Acct: [id number] Dis Date: Status: ADM IN PHONE #: [phone] Exam Date: 07/28/2023 1324 FAX #: [phone] Reason: AV STENOSIS EXAMS: CPT CODE: [id number] CTA ABD PEL W CONT 14209 Radiation Dose CTDIVOL = 2.12 (mGy): DLP = 44.64 (mGy-cm) Radiation Dose CTDIVOL = 2.12 (mGy): DLP = 44.64 (mGy-cm) Radiation Dose CTDIVOL = 2.12 (mGy): DLP= 44.64 (mGy-cm) PROCEDURE INFORMATION: Exam: CTA Heart [...] 2 V 07/28/2023 9:42 AM RADIATION DOSE METRICS:CTDI volume (mGy): 2.12 Total DLP (mGy-cm): 44.64 FINDINGS: PHASE OF CARDIAC CYCLE MEASUREMENTS OBTAINED: 35% of the R-R interval Aortic valve morphology: Tricuspid Valve calcification: Severe burden. Aortic valve calcium score: 6161 AORTIC ANNULAR MEASUREMENTS: Annular area: 427 mm2 Perimeter: 75 mm Max diameter: 27 mm Min diameter: 21 mm PAGE 1 Signed Report (CONTINUED) Name: EVELYN GIBSON [facility] [place] : 1940 Age/S: 83 / F [address] [place] [address] Blvd Unit #: [id number] Loc: [place] [address] Phys: JorgeHeaven noel Viola DATA ANALYTICS DEVELOPER Acct: [id number] Dis Date: Status: ADM IN PHONE #: [phone] Exam Date: 07/28/2023 1324 FAX #: [phone] Reason: AV STENOSIS EXAMS: CPT CODE: [id number] CTA ABD PEL W CONT 67669 (Continued) Annular/Subannular calcification: Moderate burden. There are [...] coronary plaque. There is right coronary dominance. Pericardium:No thickening, calcification or effusion. IMPRESSION: Aortic root [...] exposure control; mA and/or kV adjustment per patientsize (includes targeted exams where dose is matched to clinical indication); or iterative reconstruction. Contrast material: ISO 370; Contrast volume: 100 ml; Contrast route: INTRAVENOUS (IV); REPORTING DATA: Count of CT and Cardiac NM exams in prior 12 months: This PAGE 2 Signed Report (CONTINUED) Name: EVELYN GIBSON [facility] [place] : 1940 Age/S: 83 / F [address] [place] [address] Blvd Unit #:[id number] Loc: [place] [address] Phys: Heaven Patel DATA ANALYTICS DEVELOPER Acct: [id number] Dis Date: Status: ADMIN PHONE #: [phone] Exam Date: 07/28/2023 1324 FAX #: [phone] Reason: AV STENOSIS EXAMS: CPT CODE: [id number] CTA ABD PEL W CONT 44024 (Continued) patient has received 0 known CTs [...] dilation. Pancreas: Unremarkable. No mass. No ductal dilation.Spleen: Unremarkable. No splenomegaly. Adrenal glands: Unremarkable. No [...] 3 Signed Report (CONTINUED) Name: EVELYN GIBSON [facility] : 1940 Age/S: 83 / F [address] [place] [address] Blvd Unit #: [id number] Loc: [place] [address] Phys: Heaven Patel NP Acct: [id number] Dis Date: Status: ADM IN PHONE #: [phone] Exam Date: 07/28/2023 1324 FAX #: [phone] Reason: AV STENOSIS EXAMS: CPT CODE:[id number] CTA ABD PEL W CONT 34162 (Continued) 1. Patent bilateral iliofemoral arteries without significant stenosis. 2. Mild emphysema. COMMENTS: Unless otherwise specified, incidental findings do not require dedicated imaging and follow-up. at 0418 Reported and signed by: Kar Camp M.D. CC: Heaven Patel NP; Apolinar Rankin MD Technologist:Dipak Dumont Jr, RT(R)(CT) CTDI: DLP: Trnscb Date/Time: 07/30/2023 (041) [id number] Orig Print D/T: S: 07/30/2023 (0712) PAGE 4 Signed ReportPROTHROMBIN TIME 2023-07-29 21:46:00* Test Item Value Reference Range Interpretation Comme nts PROTHROMBIN TIME PATIENT (test code = PTP) 11.8 SECONDS 9.3-12.9 N INTERNATIONAL NORMAL RATIO (test code = INR) 1.1 0.8-1.2 N TARGET INR BY INDICATION Indication INR1. Prophylaxis of venous thrombosis 2.0 - 3.0 (orthopedic surgery), Prophylaxis of venous thrombosis (other than high-risk surgery), Treatment of Deep Vein Thrombosis/Pulmonary Embolism, Prevention of systemic embolism - Tissue heart valves, Acute Myocardial Infarction (to prevent systemic embolism), Valvular heart disease, Atrial Fibrillation, Bileaflet mechanical valve in aortic position.2. Mechanical prosthetic valves (high risk), 2.5 - 3.5 Presence of Lupus Anticoagulant or Antiphospholipid Antibodies, Prevention of systemic embolism - Acute Myocardial Infarction (to prevent recurrent infarct). GLUCOSE [id number] 20:45:00* Test Item Value Reference Range Interpretation Comme nts GLUCOSE BEDSIDE (test code = GLUBED) 99 MG/DL 70-110 N Performed by cer tified blasting machine operator at [facility] GLUCOSE [id number] 16:01:00* Test Item Value Reference Range Interpretation Comme nts GLUCOSE BEDSIDE (test code = GLUBED) 112 MG/DL 70-110 H Performed by [facility] tified blasting machine operator at [facility] GLUCOSE [id number] 12:26:00* Test Item Value Reference Range Interpretation Comme nts GLUCOSE BEDSIDE (test code = GLUBED) 102 MG/DL 70-110 N Performed by [facility] tified blasting machine operator at [facility] GLUCOSE [id number] 08:15:00* Test Item Value Reference Range Interpretation Comme nts GLUCOSE BEDSIDE (test code = GLUBED) 109 MG/DL 70-110 N Performed by [facility] [email or web address] blasting machine operator at [facility] BASIC METABOLIC [id number] 03:54:00* Test Item Value Reference Range Interpretation Comme nts SODIUM (test code = NA) 129 mEq/L 134-147 L POTASSIUM (test code = K) 4.0 mEq/L 3.4-5.0 N CHLORIDE (test code = CL) 94 mEq/L 100-108 L CARBON DIOXIDE (test code = CO2) 29 mEq/l 21-33 N ANION GAP (test code = GAP) 10 0-20 N GLUCOSE (test code = GLU) 93 mg/dL 77-141 N NOTE: NEW NORMAL RANGE BLOOD UREA NITROGEN (test code = BUN) 15 mg/dL 7-25 N NOTE: NEW NORM AL RANGE GLOMERULAR FILTRATION RATE (test code = GFR) 62.7 70-80 L The Glomerular Filtration Rate is a calculated parameterbased on serum Creatinine, patient age and sex. GFR valuesless than 60 mL/min/1.73 square meters are indicative ofChronic Kidney Disease. Values less than 15 mL/min/1.73square meters indicate Kidney failure. The calculation forGFR is based on the CKD-EPI (2020) calculation. This formulais race indifferent and is the recommended formula for GFRby the National Kidney Foundation for Adults.The GFR will not calculate if the sex is unknown or if thepatient's age is <18 years. CREATININE (test code = CREAT) 0.9 mg/dL 0.6-1.3 N CALCIUM (test code = CA) 9.0 mg/dL 8.0-10.5 N [id number] 03:54:00* Test Item Value Reference Range Interpretation Comme nts MAGNESIUM (test code = MAG) 2.08 mg/dL 1.6-2.6 N NOTE: NEW NORMAL RANGE CBC W/AUTO [id number] 03:06:00* Test Item Value Reference Range Interpretation Comme nts WHITE BLOOD CELL (test code = WBC) 12.3 x10 3/uL 4.5-11.0 H RED BLOOD CELL (test code = RBC) 4.35 x10 6/uL 3.54-5.02 N HEMOGLOBIN (test code = HGB) 12.8 g/dL 11.0-15.0 N HEMATOCRIT (test code = HCT) 38.3 % 33.0-45.0 N MEAN CELL VOLUME (test code = MCV) 88.0 fL 81.0-99.0 N MEAN CELL HGB (test code = MCH) 29.4 pg 27.0-33.0 N MEAN CELL HGB CONCETRATION (test code = MCHC) 33.4 g/dL 33.0-37.0 N RED CELL DISTRIBUTION WIDTH CV (test code = RDW) 13.1 % 11.5-14.5 N RED CELL DISTRIBUTION WIDTH SD (test code = RDW-SD) 42.5 fL 37.0-54.0 N PLATELET COUNT (test code = PLT) 254 x10 3/uL 150-400 N MEAN PLATELET VOLUME (test c ode = MPV) 11.6 fL 7.0-9.0 H NEUTROPHIL % (test code = NT%) 70.8 % 56.0-77.0 N IMMATURE GRANULOCYTE % (test code = IG%) 0.4 % 0.0-2.0 N LYMPHOCYTE % (test code = LY%) 16.5 % 14.0-32.0 N MONOCYTE % (test code = MO%) 11.4 % 4.8-9.0 H EOSINOPHIL % (test code = EO%) 0.6 % 0.3-3.7 N BASOPHIL % (test code = BA%) 0.3 % 0.0-2.0 N NUCLEATED RBC % (test code = NRBC%) 0.0 % 0-0 N NEUTROPHIL # (test code = NT#) 8.70 x10 3/uL 2.0-7.6 H IMMATURE GRANULOCYTE # (test code = IG#) 0.05 x10 3/uL 0.00-0.03 H LYMPHOCYTE # (test code = LY#) 2.03 x10 3/uL 1.0-3.8 N MONOCYTE # (test code = MO#) 1.40 x10 3/uL 0.1-0.8 H EOSINOPHIL # (test code = EO#) 0.07 x10 3/uL 0.0-0.2 N BASOPHIL # (test code = BA#) 0.04 x10 3/uL 0.0-0.2 N NUCLEATED RBC # (test code = NRBC#) 0.00 x10 3/uL 0.0-0.1 N GLUCOSE [id number] 20:50:00* Test Item Value Reference Range Interpretation Comme [facility] GLUCOSE BEDSIDE (test code = GLUBED) 121 MG/DL 70-110 H Performed by cer tified blasting machine operator at [facility] GLUCOSE [id number] 17:11:00* Test Item Value Reference Range Interpretation Comme [facility] GLUCOSE BEDSIDE (test code = GLUBED) 116 MG/DL 70-110 H Performed by [facility] tified blasting machine operator at [facility] - XR CHEST 2 [id number] 11:48:00 [facility] 1940 Sex: F FAX: Heaven Paetl NP [phone] [place]: St: [facility] FAX: Apolinar Banuelos MD [phone] Name: EVELYN GIBSON [facility] : 1940 Age/S: 83/F [address] [place] [address] Unit #: [id number] Loc: G.3352 [place] [address] Phys: Heaven Patel NP Acct: [id number] Dis Date: Status: ADM IN PHONE #: [phone] Exam Date: 07/28/2023 1011 FAX #: [phone] Reason: Emesis x2 EXAMS: CPT CODE: [id number] XRCHEST 2 V [id number] EXAM: - XR CHEST 2 V CLINICAL HISTORY: Emesis x2 TECHNIQUE: Frontal and Lateral views. COMPARISON: Chest radiograph 07/26/2023 LOCATION: C4 FINDINGS: Left chest wall surgical clips arepresent. The trachea appears normal. The mediastinum and cardiac silhouette are within normal limits for size. No confluent airspace opacities. No pleural effusions. Visualized soft tissues and osseous structures are grossly unremarkable. IMPRESSION: No acute cardiopulmonary process. at 1148 Reported and signed by: Torrey Narvaez D.O. CC: Heaven Patel NP; Apolinar Rankin MD Technologist: RT Michele(R) Trnscrd Date/Time/By: 07/28/2023 (1148) : By: [id number] Orig Print D/T: S: 07/28/2023 (1957) PAGE 1 Signed ReportGLUCOSE [id number] 11:30:00* Test Item Value Reference Range Interpretation Comme nts GLUCOSE BEDSIDE (test code = GLUBED) 142 MG/DL 70-110 H Performed by cer tified blasting machine operator at [facility] GLUCOSE [id number] 08:06:00* Test Item Value Reference Range Interpretation Comme nts GLUCOSE BEDSIDE (test code = GLUBED) 117 MG/DL 70-110 H Performed by cer tified blasting machine operator at [facility] COMPREHENSIVE METABOLIC [id number] 05:58:00* Test Item Value Reference Range Interpretation Comme nts SODIUM (test code = NA) 130 mEq/L 134-147 L POTASSIUM (test code = K) 3.8 mEq/L 3.4-5.0 N CHLORIDE (test code = CL) 93 mEq/L 100-108 L CARBON DIOXIDE (test code = CO2) 31 mEq/l 21-33 N ANION GAP (test code = GAP) 10 0-20 N GLUCOSE (test code = GLU) 100 mg/dL 77-141 NOTE: NEW NORMAL RANGE BLOOD UREA NITROGEN (test code = BUN) 18 mg/dL 7-25 N NOTE: NEW NORM AL RANGE GLOMERULAR FILTRATION RATE (test code = GFR) 72.2 70-80 N The Glomerular Filtration Rate is a calculated parameterbased on serum Creatinine, patient age and sex. GFR valuesless than 60 mL/min/1.73 square meters are indicative ofChronic Kidney Disease. Values less than 15 mL/min/1.73square meters indicate Kidney failure. The calculation forGFR is based on the CKD-EPI (202) calculation. This formulais race indifferent and is the recommended formula for GFRby the National Kidney Foundation for Adults.The GFR will not calculate if the sex is unknown or if thepatient's age is <18 years. CREATININE (test code = CREAT) 0.8 mg/dL 0.6-1.3 N TOTAL PROTEIN (test code = PROT) 7.3 g/dL 6.4-8.2 N ALBUMIN (test code = ALB) 3.60 g/dL 3.4-5.0 N CALCIUM (test code = CA) 9.3 mg/dL 8.0-10.5 N BILIRUBIN TOTAL (test code = BILT) 0.60 mg/dL 0.0-1.0 N SGOT/AST (test code = AST) 22 IUnit/L 8-34 N NOTE: NEW NORMAL RANGE SGPT/ALT (test code = ALT) 14 IUnit/L 10-49 N NOTE: NEW NORMAL RANGE ALKALINE PHOSPHATASE TOTAL (test code = ALKP) 60 IUnit/L 20-125 N [id number] 05:58:00* Test Item Value Reference Range Interpretation Comme nts MAGNESIUM (test code = MAG) 2.07 mg/dL 1.6-2.6 N NOTE: NEW NORMAL RANGE CBC W/AUTO [id number] 05:29:00* Test Item Value Reference Range Interpretation Comme nts WHITE BLOOD CELL (test code = WBC) 16.0 x10 3/uL 4.5-11.0 H RED BLOOD CELL (test code = RBC) 4.63 x10 6/uL 3.54-5.02 N HEMOGLOBIN (test code = HGB) 13.4 g/dL 11.0-15.0 N HEMATOCRIT (test code = HCT) 40.3 % 33.0-45.0 N MEAN CELL VOLUME (test code = MCV) 87.0 fL 81.0-99.0 N MEAN CELL HGB (test code = MCH) 28.9 pg 27.0-33.0 N MEAN CELL HGB CONCETRATION (test code = MCHC) 33.3 g/dL 33.0-37.0 N RED CELL DISTRIBUTION WIDTH CV (test code = RDW) 13.2 % 11.5-14.5 N RED CELL DISTRIBUTION WIDTH SD (test code = RDW-SD) 41.8 fL 37.0-54.0 N PLATELET COUNT (test code = PLT) 280 x10 3/uL 150-400 N MEAN PLATELET VOLUME (test code = MPV) 11.8 fL 7.0-9.0 H NEUTROPHIL % (test code = NT%) 75.6 % 56.0-77.0 N IMMATURE GRANULOCYTE % (test code = IG%) 0.4 % 0.0-2.0 N LYMPHOCYTE % (test code = LY%) 12.8 % 14.0-32.0 L MONOCYTE % (test code = MO%) 10.8 % 4.8-9.0 H EOSINOPHIL % (test code = EO%) 0.2 % 0.3-3.7 L BASOPHIL % (test code = BA%) 0.2 % 0.0-2.0 N NUCLEATED RBC % (test code = NRBC%) 0.0 % 0-0 N NEUTROPHIL # (test code = NT#) 12.09 x10 3/uL 2.0-7.6 H IMMATURE GRANULOCYTE # (test code = IG#) 0.07 x10 3/uL 0.00-0.03 H LYMPHOCYTE # (test code = LY#) 2.04 x10 3/uL 1.0-3.8 N MONOCYTE # (test code = MO#) 1.72 x10 3/uL 0.1-0.8 H EOSINOPHIL # (test code = EO#) 0.03 x10 3/uL 0.0-0.2 N BASOPHIL # (test code = BA#) 0.03 x10 3/uL 0.0-0.2 N NUCLEATED RBC # (test code = NRBC#) 0.00 x10 3/uL 0.0-0.1 N GLUCOSE [id number] 20:32:00* Test Item Value Reference Range Interpretation Comme nts GLUCOSE BEDSIDE (test code = GLUBED) 156 MG/DL 70-110 H Performed by cer [employer] blasting machine operator at [facility] GLUCOSE [id number] 17:11:00* Test Item Value Reference Range Interpretation Comme nts GLUCOSE BEDSIDE (test code = GLUBED) 115 MG/DL 70-110 H Performed by [employer] blasting machine operator at [facility] GLUCOSE [id number] 12:00:00* Test Item Value Reference Range Interpretation Comme nts GLUCOSE BEDSIDE (test code = GLUBED) 134 MG/DL 70-110 H Performed by [employer] blasting machine operator at [facility] BASIC METABOLIC [id number] 09:35:00* Test Item Value Reference Range Interpretation Comme nts SODIUM (test code = NA) 129 mEq/L 134-147 L POTASSIUM (test code = K) 3.9 mEq/L 3.4-5.0 N CHLORIDE (test code = CL) 93 mEq/L 100-108 L CARBON DIOXIDE (test code = CO2) 28 mEq/l 21-33 N ANION GAP (test code = GAP) 12 0-20 N GLUCOSE (test code = GLU) 163 mg/dL 77-141 H NOTE: NEW NORMAL RANGE BLOOD UREA NITROGEN (test code = BUN) 16 mg/dL 7-25 N NOTE: NEW NORM AL RANGE GLOMERULAR FILTRATION RATE (test code = GFR) 62.7 70-80 L The Glomerular Filtration Rate is a calculated parameterbased on serum Creatinine, patient age and sex. GFR valuesless than 60 mL/min/1.73 square meters are indicative ofChronic Kidney Disease. Values less than 15 mL/min/1.73square meters indicate Kidney failure. The calculation forGFR is based on the CKD-EPI (202) calculation. This formulais race indifferent and is the recommended formula for GFRby the National Kidney Foundation for Adults.The GFR will not calculate if the sex is unknown or if thepatient's age is <18 years. CREATININE (test code = CREAT) 0.9 mg/dL 0.6-1.3 N CALCIUM (test code = CA) 9.2 mg/dL 8.0-10.5 N [id number] 09:35:00* Test Item Value Reference Range Interpretation Comme nts MAGNESIUM (test code = MAG) 1.87 mg/dL 1.6-2.6 N NOTE: NEW NORMAL RANGE CBC W/AUTO [id number] 09:05:00* Test Item Value Reference Range Interpretation Comme nts WHITE BLOOD CELL (test code = WBC) 18.9 x10 3/uL 4.5-11.0 H RED BLOOD CELL (test code = RBC) 4.96 x10 6/uL 3.54-5.02 N HEMOGLOBIN (test code = HGB) 14.4 g/dL 11.0-15.0 N HEMATOCRIT (test code = HCT) 43.4 % 33.0-45.0 N MEAN CELL VOLUME (test code = MCV) 87.5 fL 81.0-99.0 N MEAN CELL HGB (test code = MCH) 29.0 pg 27.0-33.0 N MEAN CELL HGB CONCETRATION (test code = MCHC) 33.2 g/dL 33.0-37.0 N RED CELL DISTRIBUTION WIDTH CV (test code = RDW) 13.2 % 11.5-14.5 N RED CELL DISTRIBUTION WIDTH SD (test code = RDW-SD) 42.3 fL 37.0-54.0 N PLATELET COUNT (test code = PLT) 318 x10 3/uL 150-400 N MEAN PLATELET VOLUME (test code = MPV) 11.3 fL 7.0-9.0 H NEUTROPHIL % (test code = NT%) 82.8 % 56.0-77.0 H IMMATURE GRANULOCYTE % (test code = IG%) 0.6 % 0.0-2.0 N LYMPHOCYTE % (test code = LY%) 9.6 % 14.0-32.0 L MONOCYTE % (test code = MO%) 6.5 % 4.8-9.0 N EOSINOPHIL % (test code = EO%) 0.3 % 0.3-3.7 N BASOPHIL % (test code = BA%) 0.2 % 0.0-2.0 N NUCLEATED RBC % (test code = NRBC%) 0.0 % 0-0 N NEUTROPHIL # (test code = NT#) 15.62 x10 3/uL 2.0-7.6 H IMMATURE GRANULOCYTE # (test code = IG#) 0.11 x10 3/uL 0.00-0.03 H LYMPHOCYTE # (test code = LY#) 1.81 x10 3/uL 1.0-3.8 N MONOCYTE # (test code = MO#) 1.23 x10 3/uL 0.1-0.8 H EOSINOPHIL # (test code = EO#) 0.05 x10 3/uL 0.0-0.2 N BASOPHIL # (test code = BA#) 0.04 x10 3/uL 0.0-0.2 N NUCLEATED RBC # (test code = NRBC#) 0.00 x10 3/uL 0.0-0.1 N MANUAL DIFF REQUIRED (test code = MDIFF) NO GLUCOSE [id number] 08:14:00* Test Item Value Reference Range Interpretation Comme nts GLUCOSE BEDSIDE (test code = GLUBED) 107 MG/DL 70-110 N Performed by cer tified blasting machine operator at [facility] GLUCOSE [id number] 20:56:00* Test Item Value Reference Range Interpretation Comme nts GLUCOSE BEDSIDE (test code = GLUBED) 135 MG/DL 70-110 H Performed by cer tified blasting machine operator at [facility] GLUCOSE [id number] 20:19:00* Test Item Value Reference Range Interpretation Comme nts GLUCOSE BEDSIDE (test code = GLUBED) 181 MG/DL 70-110 H Performed by cer tified blasting machine operator at [facility] GLUCOSE [id number] 17:56:00* Test Item Value Reference Range Interpretation Comme nts GLUCOSE BEDSIDE (test code = GLUBED) 129 MG/DL 70-110 H Performed by cer tified blasting machine operator at [facility] UA RFLX MICR CULT IF [id number] 13:06:00* Test Item Value Reference Range Interpretation Comme nts UA COLOR (test code = COLU) YELLOW YEL/STRAW UA APPEARANCE (test code = APPU) SL CLOUDY CLEAR UA GLUCOSE DIPSTICK (test co de = DGLUU) NEGATIVE NEGATIVE UA BILIRUBIN DIPSTICK (test code = BILU) NEGATIVE NEGATIVE UA KETONE DIPSTICK (test cod e = KETU) NEGATIVE NEGATIVE UA SPECIFIC GRAVITY (test co de = SGU) 1.017 1.005-1.030 N UA BLOOD DIPSTICK (test code = RUDY) 1+ NEGATIVE A UA PH DIPSTICK (test code = MANI) 5.0 5.0-7.0 N UA PROTEIN DIPSTICK (test co de = PROU) NEGATIVE NEGATIVE UA UROBILINIOGEN DIPSTICK (test code = URO) 0.2 mg/dL 0.2-1.0 UA NITRITE DIPSTICK (test co de = ANASTASIA) NEGATIVE NEGATIVE UA LEUKOCYTE ESTERASE DIPSTI CK (test code = LEUU) 1+ NEGATIVE A UA WBC (test code = WBCU) 4-9 WBC/HPF 0-3 A UA RBC (test code = RBCU) 0-3 RBC/HPF 0-3 UA WBC NO REFLEX (test code = WBCUCL) 4-9 WBC/HPF 0-3 A UA BACTERIA (test code = BACU) NONE SEEN /HPF NONE SEEN UA SQUAMOUS CELLS (test code = SQU) 6-10 /HPF NONE SEEN A UA MUCUS (test code = MUCU) TRACE /LPF NONE SEEN Indication for culture: RiskForSepsis-no oth srcSpecimen Description: CLEAN CATCHGLUCOSE [id number] 12:39:00* Test Item Value Reference Range Interpretation Comme nts GLUCOSE BEDSIDE (test code = GLUBED) 142 MG/DL 70-110 H Performed by cer tified blasting machine operator at [facility] [id number] 11:31:00* Test Item Value Reference Range Interpretation Comme nts HGBA1C% (test code = HGBA1C%) 5.4 %A1C 4.8-6.0 N - XR CHEST 2 [id number] 11:24:00 [facility] 1940 Sex: F FAX: Heaven Patel NP [phone] [place]: St: ADM FAX: Apolinar Banuelos MD [phone] Name: EVELYN GIBSON [facility] : 1940 Age/S: 83/F [address] [place] [address] Unit #: [id number] Loc: G.4434 [place] [address] Phys: Heaven Patel NP Acct: [id number] Dis Date: Status: ADM IN PHONE #: [phone] Exam Date: 07/26/2023 1109 FAX #: [phone] Reason: Cardiac Surgery Pre Op EXAMS: CPT CODE: [id number] XR CHEST 2 V [id number] EXAM: - XR CHEST 2 V HISTORY: [...] Technologist: Heaven Goff, RT(R); Lynn Red RT(R) [facility] Date/Time/By: 07/26/2023 (112) : By: BeeKW9 [facility] Print D/T: S: 07/26/2023 (1127) PAGE 1 Signed Report- DUP EXTRACRANIAL [id number] 11:12:00 [facility] 1940 Sex: F Name: EVELYN GIBSON [facility] : 1940 Age/S: 83 / F [address] [place] [address] Unit #: [id number] Loc: [place] [address] Phys: Heaven Patel NP Acct: [id number] Dis Date: Status: ADM INPHONE #: [phone] Exam Date: 07/26/2023 1105 FAX #: [phone] Reason: Cardiac Surgery Pre Op EXAMS: CPT CODE: [id number] DUP EXTRACRANIAL [place] [id number] EXAM: CAROTID DOPPLER INDICATION: Cardiac Surgery Pre Op COMPARISON: None available TECHNIQUE: Grayscale, color Doppler, and duplex sonography of the extracranial carotid vessels was performed. FINDINGS: Right side: Plaque: Minimal Peak systolic velocities (cm/sec): CCA: 59.1 ICA: 61.2 ICA/CCA ratio: 0.9 Vertebral artery: Antegrade Left side:Plaque: Minimal Peak systolic velocities (cm/sec): CCA: 54.8 ICA: 67.3 ICA/CCA ratio: 0.8 Vertebralartery: Antegrade IMPRESSION: Minimal atherosclerotic disease within the bilateral carotid bifurcations. No evidence of hemodynamically significant (greater than 50%) stenosis. LOCATION: B2 at 1112 Reported and signed by: Tammie Francis M.D. CC: Heaven Patel DATA ANALYTICS DEVELOPER; Apolinar Rankin MD Technologist: Sonia Hathaway RDMS(A)(BR) Trnscb Date/Time: 07/26/2023 (1112) [id number] Orig Print D/T: S: 07/26/2023 (1115) Probe: PAGE 1 Signed ReportLIPID PROFILE (CORONARY RISK)2023-07-26 10:47:00* Test Item Value Reference Range Interpretation Comme nts TRIGLYCERIDES (test code = TRIG) 58 mg/dL 40-150 N CHOLESTEROL (test code = CHOL) 140 mg/dL <200 CHOLESTEROL/HDL RATIO (test code = CHOLHDL) 2.28 RATIO 3.27-4.44 L RISK ASSOCIATED WITH CHOL/HDL RATIOS: RISK MALE FEMALE1/2 AVERAGE 3.43 3.27AVERAGE 4.97 4.442X AVERAGE 9.55 7.053X AVERAGE 23.39 11.04 NOTE THAT THE REFERENCE VALUE IS RELATEDTO RISK LEVELS RECOMMENDED BY THE NATL.HEART, LUNG, AND BLOOD INST. HDL CHOLESTEROL (test code = HDL) 61.5 MG/DL 40-60 H Note change in REFERENCE RANGE due to change in REAGENT.HDL Interpretation < 40.0 mg/dL Low (undesirable, high risk)> 60.0 mg/dL High (desirable, low risk) Reference interval for healthy adults was established by theNational Cholesterol Education Program (NCEP). LIPOPROTEIN LDL (test code = LDL) 52.0 mg/dL 0-100 N <100 PIXZZFX78 0-129 NEAR OPTIMAL/ABOVE [id number] HIGH>FA=082 VERY HIGH*Guidelines provided by the National Cholesterol EducationProgram Adult Treatment Panel III [id number] 10:47:00* Test Item Value Reference Range Interpretation Comme nts MAGNESIUM (test code = MAG) 1.83 mg/dL 1.6-2.6 N NOTE: NEW NORMAL RANGE COMPREHENSIVE METABOLIC [id number] 10:47:00* Test Item Value Reference Range Interpretation Comme nts SODIUM (test code = NA) 129 mEq/L 134-147 L POTASSIUM (test code = K) 4.0 mEq/L 3.4-5.0 N CHLORIDE (test code = CL) 92 mEq/L 100-108 L CARBON DIOXIDE (test code = CO2) 31 mEq/l 21-33 N ANION GAP (test code = GAP) 11 0-20 N GLUCOSE (test code = GLU) 145 mg/dL 77-141 H NOTE: NEW NORMAL RANGE BLOOD UREA NITROGEN (test code = BUN) 27 mg/dL 7-25 H NOTE: NEW NORM AL RANGE GLOMERULAR FILTRATION RATE (test code = GFR) 49.2 70-80 L The Glomerular Filtration Rate is a calculated parameterbased on serum Creatinine, patient age and sex. GFR valuesless than 60 mL/min/1.73 square meters are indicative ofChronic Kidney Disease. Values less than 15 mL/min/1.73square meters indicate Kidney failure. The calculation forGFR is based on the CKD-EPI (202) calculation. This formulais race indifferent and is the recommended formula for GFRby the National Kidney Foundation for Adults.The GFR will not calculate if the sex is unknown or if thepatient's age is <18 years. CREATININE (test code = CREAT) 1.1 mg/dL 0.6-1.3 N TOTAL PROTEIN (test code = PROT) 7.6 g/dL 6.4-8.2 N ALBUMIN (test code = ALB) 3.80 g/dL 3.4-5.0 N CALCIUM (test code = CA) 9.3 mg/dL 8.0-10.5 N BILIRUBIN TOTAL (test code = BILT) 0.70 mg/dL 0.0-1.0 N SGOT/AST (test code = AST) 29 IUnit/L 8-34 N NOTE: NEW NORMAL RANGE SGPT/ALT (test code = ALT) 18 IUnit/L 10-49 N NOTE: NEW NORMAL RANGE ALKALINE PHOSPHATASE TOTAL (test code = ALKP) 65 IUnit/L 20-125 N B-TYPE NATRIURETIC [id number] 10:45:00* Test Item Value Reference Range Interpretation Comme [facility] B-TYPE NATRIURETIC PEPTIDE ( test code = BNP) 195.0 PG/ML 0-100 H PROTHROMBIN [id number] 10:36:00* Test Item Value Reference Range Interpretation Comme [facility] PROTHROMBIN TIME PATIENT (test code = PTP) 11.9 SECONDS 9.3-12.9 N INTERNATIONAL NORMAL RATIO (test code = INR) 1.1 0.8-1.2 N TARGET INR BY INDICATION Indication INR1. Prophylaxis of venous thrombosis 2.0 - 3.0 (orthopedic surgery), Prophylaxis of venous thrombosis (other than high-risk surgery), Treatment of Deep Vein Thrombosis/Pulmonary Embolism, Prevention of systemic embolism - Tissue heart valves, Acute Myocardial Infarction (to prevent systemic embolism), Valvular heart disease, Atrial Fibrillation, Bileaflet mechanical valve in aortic position.2. Mechanical prosthetic valves (high risk), 2.5 - 3.5 Presence of Lupus Anticoagulant or Antiphospholipid Antibodies, Prevention of systemic embolism - Acute Myocardial Infarction (to prevent recurrent infarct). THROMBOPLASTIN TIME [id number] 10:36:00* Test Item Value Reference Range Interpretation [facility] PARTIAL (test code = PTT) 35.2 Seconds 25.0-39.5 N Therapeutic Rang e: 50.4 - 88.3 Seconds Effective 01/05/2019 CBC W/AUTO [id number] 10:26:00* Test Item Value Reference Range Interpretation Comme [facility] WHITE BLOOD CELL (test code = WBC) 12.1 x10 3/uL 4.5-11.0 H RED BLOOD CELL (test code = RBC) 4.93 x10 6/uL 3.54-5.02 N HEMOGLOBIN (test code = HGB) 14.1 g/dL 11.0-15.0 N HEMATOCRIT (test code = HCT) 42.6 % 33.0-45.0 N MEAN CELL VOLUME (test code = MCV) 86.4 fL 81.0-99.0 N MEAN CELL HGB (test code = MCH) 28.6 pg 27.0-33.0 N MEAN CELL HGB CONCETRATION (test code = MCHC) 33.1 g/dL 33.0-37.0 N RED CELL DISTRIBUTION WIDTH CV (test code = RDW) 13.1 % 11.5-14.5 N RED CELL DISTRIBUTION WIDTH SD (test code = RDW-SD) 40.8 fL 37.0-54.0 N PLATELET COUNT (test code = PLT) 317 x10 3/uL 150-400 N MEAN PLATELET VOLUME (test c ode = MPV) 11.0 fL 7.0-9.0 H NEUTROPHIL % (test code = NT%) 78.6 % 56.0-77.0 H IMMATURE GRANULOCYTE % (test code = IG%) 0.5 % 0.0-2.0 N LYMPHOCYTE % (test code = LY%) 11.8 % 14.0-32.0 L MONOCYTE % (test code = MO%) 8.5 % 4.8-9.0 N EOSINOPHIL % (test code = EO%) 0.4 % 0.3-3.7 N BASOPHIL % (test code = BA%) 0.2 % 0.0-2.0 N NUCLEATED RBC % (test code = NRBC%) 0.0 % 0-0 N NEUTROPHIL # (test code = NT#) 9.50 x10 3/uL 2.0-7.6 H IMMATURE GRANULOCYTE # (test code = IG#) 0.06 x10 3/uL 0.00-0.03 H LYMPHOCYTE # (test code = LY#) 1.43 x10 3/uL 1.0-3.8 N MONOCYTE # (test code = MO#) 1.03 x10 3/uL 0.1-0.8 H EOSINOPHIL # (test code = EO#) 0.05 x10 3/uL 0.0-0.2 N BASOPHIL # (test code = BA#) 0.03 x10 3/uL 0.0-0.2 N NUCLEATED RBC # (test code = NRBC#) 0.00 x10 3/uL 0.0-0.1 N GLUCOSE [id number] 09:15:00* Test Item Value Reference Range Interpretation Comme nts GLUCOSE BEDSIDE (test code = GLUBED) 137 MG/DL 70-110 H Performed by cer tified blasting machine operator at [facility] Notes Date/Time Note Provider Source 2023-08-09 20:10:00 [id number] VxHFJX0yEeD5nHy3//Us0/egG5435-48-49J18:10:00 [facility] ([facility])DT Operative NoteREPORT#:[id number] REPORT STATUS: SignedREPORT INITIALIZATION DATE:08/09/23 TIME: 2009 PATIENT: EVELYN GIBSON UNIT #: [id number]#: [id number] [address] AGE: 83 SEX: F ATTEND: Apolinar Rankin MDA AUTHOR: Parmjit Houser MDREPT SERVICE DT/TIME: 07/30/232009* ALL edits or amendments must be made on the electronic/computer document * Operative Report Operative NoteNote:Pre-procedure diagnosis: Severe symptomatic aortic stenosis Post-procedure diagnosis:Severe symptomatic aortic stenosis Procedures performed:1. Predilation with 18 mm true balloon2. Transcatheter aortic valve replacement using Bliss 23 mm valve3. Ascending aortogram4. Distal aortogram5. Transvenous temporary pacemaker insertion6. Closure of the right common femoral artery with 2 Perclose, left common femoral artery with 1 Perclose and left common femoral vein with 1 Perclose. Mill Tender: MD Rowdy Gleason MD CT surgeon: Thelma Rankin MD Anesthesia: monitored anesthesia care. Indications:Severe symptomatic aortic stenosis. Technique/Procedure:After informed consent was obtained patient was brought into the Staff Weapons Officer patient was prepped and draped in sterile fashion. Left common femoral artery was accessed ultrasound guided and using micropuncture technique under fluoroscopy guidance and a 5 English sheath was inserted. The left common femoral vein was accessed using micropuncture technique and then an 8 English long sheath was inserted. The right common femoral artery was visualized by ultrasound and accessed using micropuncture technique under fluoroscopy guidancea micropuncture technique then a 6 English sheath was inserted, thne 2 Perclose were deployed, Then we placed a 14 English Bliss E sheath. Then we went with 5 English marked pigtail from the left common femoral artery we placed it in the noncoronary cusp. Then we went up with temporary pacer and we placed it in the right ventricle against the septum. Then we went through the E sheath with exchange length J-wire over AL-1 catheter and I crossed the aortic valve with straight tip wire and then I [...] 200 bpm deployed the TAVRvalve 23 mm at nominal pressure. Then the valve delivery system was removed. And we performed ascending aortogram utilizing the marker pigtail and showed no perivalvular leak. An echocardiogram was done at the bedside showed small effusion no change from prior valve deployment, minimal gradient and no perivalvular leak. Then I went up with a pigtail over a J-wire across the TAVR valve and placed it in the left ventricle and post TAVR deployment mean gradientwas less than 5 mmHg. When I removed the pigtail out of the body and removed the E sheath and a 2 preclose were deployed in the right common femoral artery with good hemostasis. Then we pulled back the marked pigtail into the distal abdominal aorta and we performed angiogram and showed good hemostasis achievement in the right common femoral artery. Then the temporary pacer was removed the marked pigtail was removed. The left common femoral artery and veinwere secured with Perclose. Operative findings:Severe aortic stenosis. Estimated blood loss in ml's: none Specimens removed/altered: none Implant(s): Bliss 23 mm Valve Disposition: PACU at 2020 [facility] #:[id number] OF REPORTOPOperative fjzjzg0426-20-77R49:10:00G.QXLJ48066055-1267HATmc ilable for patient mkikDLPCQXAQPVROUU3623-62-66S29:20:47 [facility] 2023-08-08 15:35:00 [id number] h7memHtYy/zXvn1RgrN9Z/oLyK2q5 A3oPm5sBCbSbvPDyxOPE+MZn0aT4900-34-68A09:35:[address] [address] PATIENT NAME: EVELYN GIBSON ADMIT DATE: 07/26/23ACCOUNT NO: [id number] [place] [facility] AGE: 83 REPORT TYPE: 360 - QUERY RESPONSE DOCUMENT SEX: F ADMITTING PHYSICIAN:Apolinar Rankin MD ATTENDING PHYSICIAN:Apolinar Rankin MD Provider Query QUERY TEXT: Condition General 360MD Query related questions should be directed to: [facility] Coding Query Helpline [Based on your clinical judgement, [...] unable to determine / Unknown-- Assign to another provider QUERY RESPONSE: acute diastolic CHF Query created by: Rose Vazquez on 08/07/2023 11:32 PM at 1535 PATIENT NAME: EVELYN GIBSON noteG.[id number] for patient qadbXIAHUWTECYTDBK7852-97-94Z13:36:52 [facility] 2023-08-05 15:43:00 [id number] EKT9UwdpP/M6h8KtZH6LYaChIs8dL IhKePvQU5ruOsrMlRsKthOATjlV5541-99-99G91:43:00 [facility]Card[facility] ProgREPORT#:[id number] REPORT STATUS: SignedREPORT INITIALIZATION DATE:08/05/23 TIME: 1542 PATIENT: EVELYN GIBSON UNIT #: [id number]#: [id number] [address] AGE: 83 SEX: F ATTEND: Apolinar Rankin MDADM AUTHOR: Dayna Younger PhysicREPT SERVICE DT/TIME: 08/05/231542* ALL edits or amendments must be made on the electronic/computer document * GeneralPost-op: day 5Status post:TAVR SubjectiveChief complaint:POST TAVR Review of SystemsConstitutional:Reports: fatigue. Skin:Denies: bruising, contusion, diaphoresis. Allergy/Immun:Denies: hives, itching, rhinorrhea. Eyes:Denies: discharge, visual loss/blurred. ENT:Denies: toothache, voice change. Respiratory:Reports: BALBUENA (dyspnea on exertion). Cardiovascular:Reports: chest pain. GI:Denies: abdominal pain, nausea, vomiting. :Denies: dysuria, flank pain. Musculoskeletal:Denies: neck pain, thoracic pain. Neuro:Denies: focal weakness, slurred [...] soundsRespiratory: aerating well, clear to auscultation, symmetric expansion, no distressAbdomen: soft, non-tenderGenitourinary: no bladder distention, no flank painExtremities: dry, moves all, normal capillary refill, normal temperatureMusculoskeletal: full range of motion, painless range of motionNeuro/DISPLAY ASSOCIATE: alert, oriented X 3Psychiatry: normal affect, normal judgment/insight Diagnosis, Assessment PlanFree Text A P:83-year-old female, PMHx HTN, diabetes on metformin, HLD, back pain, arthritis, vertigo for which she reportedly takes a Xanax, breast cancer left-sided mastectomy. Patient is transferred to us from [facility], patient of Dr. Hernández, and she reports chest pressure, burning sensation in her throat, sensation of nausea which started a few weeks ago after having a GI illness with vomiting. Patient was evaluated at [facility] for reports of chest pain, and findings of normal EKG, troponins within normal limits, BNP elevated at 1397, UA negative, chest x-ray stable, echocardiogram done with findings of severe aortic stenosis patient referred to us for TAVR evaluation. Patient reports cardiac cath done at [facility], however, we have no report of cardiac cath [...] and he agrees with plan for TAVR.-TAVR usnn-ic-Agonqeewpi qhdhcio-Mxcucqddwffi-hjxfk restriction-Resume prior hospital meds 07/27/2023TAVR eval-Pending CT kexoe-Dzgcmrywgbne-oglbd restrictionLeukocytosis, afebrile, UA 1+ leukocyte Estrace. Urine [...] active bleeding. Continue to monitor per Dr. Curtis. EP following for rhythm managementContinue supportive care. 08/03/23POD 4S/P TAVRa fib, EP consulted. Echo done, reviewed by cardiology. Patient has been out of bed with PT/OT.Patient with small amount of oozing from bilateral groin sites. Will obtain ultrasound. Groins remain soft.Remains sinus rhythm.ICC following. Continue supportive care. 08/04/23pod 5Patient resting comfortable,No further [...] home today. at 1544 at 0847 RPT #:[id number] OF REPORTPRProgress xpda6963-61-18H39:43:00G.RQSB80953963-1593LSJnges able for patient tothHTZIRKCQIFTECU3769-32-87O71:44:48 [facility] 2023-08-05 13:19:00 [id number] jsnWDuFWbBpkoKKhoDEAuV0Fo96v1 zPeGTphhjjnwy4yb1c81nHLbn8g5660-01-51B06:19:00 [facility] ([facility])Discharge SummaryREPORT#:[id number] REPORT STATUS: SignedREPORT INITIALIZATION DATE:08/05/23 TIME: 131 PATIENT: EVELYN GIBSON UNIT #: [id number]#: [id number] [address] AGE: 83 SEX: F ATTEND: Apolinar Rankin [facility] AUTHOR: Roberto Sahni NPREPT SERVICE DT/TIME: 08/05/23 1319* ALL edits or amendments must be made on the electronic/computer document * PCP PCPDischarge to: home General InformationFree Text A P:1. Severe Symptomatic Aortic StenosisPatient underwent successful Bliss [place] S3 23mm Valve.Patient had paroxysmal AF and now on Eliquis reduced dose.Echocardiogram reviewed by Cardiology and CTS is following. 2. Atrial Fibrillation with RVROn amiodarone and currently in sinus rhythm.Continue amiodarone.Cardiology is managing. 3. HypertensionBlood pressures are reasonable. Patient [...] TAB 10 MILLIGRAM ORAL DAILY. ALPRAZolam XR (XANAX XR) 1 MG TAB.SR.24H 1 MILLIGRAM ORAL DAILY. as needed for NEEDED FOR VERTIGO ASPIRIN (ASPIRIN) 81 MG TAB.CHEW 81 MILLIGRAM ORAL DAILY. METOPROLOL TARTRATE (LOPRESSOR) 25 MG TAB 25 MILLIGRAM ORAL TWICE DAILY. Start taking the following new medications:APIXABAN (ELIQUIS) 2.5 MG TAB 2.5 MILLIGRAM ORAL TWICE DAILY. Days = 30 Qty = 60 Refills = 3 AMIODARONE (PACERONE) 200 MG TAB 200 MILLIGRAM ORAL TWICE DAILY AT 9AM AND 5PM. Days = 30 Qty = 60 Refills = 1 ObjectiveVS/I OLast Documented: Result Date Time B/P 126/60 [...] awake, oriented, no acute distressHead/Eyes: atraumatic, clear corneaNeck: full range of motion, non-tender, no JVD, no lymphadenopathyCardiovascular: normal capillary refill, regular rate rhythm, normal heart sounds, BP/pulses equal bilat.Respiratory: clear to auscultation, no distressGI: softExtremities: moves all, no edema-all extremities, normal capillary refillMusculoskeletal: full range of motion, normal inspection, no CVA tenderness, no midline vertebral tendNeuro/DISPLAY ASSOCIATE: alert, oriented X 3Skin: dry, intact Discharge Instructions PCPPCP:PCP: No Primary or Family Physician )( Discharge to: Home/Self Care Discharge InstructionsAdditional Discharge Routines: Attending Follow-Up, Tobacco Dipper Follow-Up)( Diet: Resume Home Diet/Feeds Follow-up AppointmentsAttending Physician: Attending Physician: Apolinar Rankin MD Xfxrdtrfum provider 1: Provider 1: Apolinar Rankin MD Specialty: Thoracic Surgery Consult follow up timeframe: In 2-3 weeks at 1438 at 1445 RPT #:[id number] OF REPORTDSDischarge iyechja3827-92-02E13:19:00G.SCWK20492712-5373LWLs ailable for patient sxcwOPXEGJRIVQHRCE3809-18-50T29:40:06 [facility] 2023-08-05 09:13:00 [id number] 2TRcC6pO2JyFxEDg92i0bLWe7QBdM IXJR6RyEptfslS5MtLTAMSE9d1z1765-71-56I91:13:00 [facility] HospitalCard[facility] Progress NoteREPORT#:[id number] REPORT STATUS: SignedREPORT INITIALIZATION DATE:08/05/23 TIME: 912 PATIENT: EVELYN GIBSON UNIT #: [id number]#: [id number] [place] [facility]DOB: [birth year] AGE: 83 SEX: F ATTEND: Apolinar Rankin MDADM AUTHOR: Tabitha HerringCNPREPT SERVICE DT/TIME: 08/05/23912* ALL edits or amendments [...] 69 14 149/66 95 99 08/05 0001 67 24 152/65 94 97 08/04 2300 62 [...] (CORDARONE) 200 MG BID 9A 5P PO Aspirin (ASPIRIN) 81 MG DAILY PO Apixaban (ELIQUIS 2.5MG TABLET) 2.5 MG BID PO Amiodarone HCl (CORDARONE) 400 MG BID 9A 5P PO (CKD) Amiodarone HCl (CORDARONE) 200 MG ONCE ONE PO (DC) Polyethylene Glycol (MIRALAX) 17 GM DAILY PO Apixaban (ELIQUIS 5MG TABLET) 5 MG BID PO (DC) Clopidogrel Bisulfate (Plavix) 75 MG DAILY [...] motionCardiovascular: CV assessment: regular rate and rhythm, BP pulses = bilaterally, normal heart soundsRespiratory: clear to auscultation, no distressAbdomen: softGenitourinary: no flank pain, no urinary catheterLower extremity: LE assessment: no edema Left groin site: ecchymosis, hematoma (small) Right groin site: ecchymosis, hematoma (small)Musculoskeletal: normal inspectionNeuro/DISPLAY ASSOCIATE: alert, oriented X 3Skin: dry, intact, normal colorPsychiatry: normal affect, normal mood ResultsFindings/Data:Laboratory Tests 08/05 08/05 08/04 08/04 08/04 0713 0425 2114 1624 1108 Chemistry Sodium (134 - 147 mEq/L) 133 L Potassium (3.4 - 5.0 mEq/L) 4.7 Chloride (100 - 108 mEq/L) 99 L Carbon Dioxide (21 - 33 mEq/l) 30 Anion Gap (0 - 20) 9 BUN (7 - 25 mg/dL) 7 Creatinine (0.6 - 1.3 mg/dL) 0.7 Glomerular Filtr Rate (70 - 80) 84.7 H Glucose (77 - 141 mg/dL) 91 POC Glucose (70 - 110 MG/DL) 100 99 123 H 115 H Calcium (8.0 - 10.5 mg/dL) 8.3 Magnesium (1.6 - 2.6 mg/dL) 1.90 Laboratory Tests 08/05 0425 Hematology WBC (4.5 - 11.0 x10 3/uL) 10.2 RBC (3.54 - 5.02 x10 6/uL) 3.47 L Hgb (11.0 - 15.0 g/dL) 10.2 L Hct (33.0 - 45.0 %) 31.4 L MCV (81.0 - 99.0 fL) 90.5 MCH (27.0 - 33.0 pg) 29.4 MCHC (33.0 - 37.0 g/dL) 32.5 L RDW (11.5 - 14.5 %) 13.7 Plt Count (150 - 400 x10 3/uL) 231 MPV (7.0 - 9.0 fL) 12.2 H Neut % (Auto) (56.0 - 77.0 %) 66.9 Lymph % (Auto) (14.0 - 32.0 %) 17.8 [place] % (Auto) (4.8 - 9.0 %) 11.1 H Eos % (Auto) (0.3 - 3.7 %) 2.2 Baso % (Auto) (0.0 - 2.0 %) 0.5 Neut # (Auto) (2.0 - 7.6 x10 3/uL) 6.84 Lymph # (Auto) (1.0 - 3.8 x10 3/uL) 1.82 [place] # (Auto) (0.1 - 0.8 x10 3/uL) 1.13 H Eos # (Auto) (0.0 - 0.2 x10 3/uL) 0.22 H Baso # (Auto) (0.0 - 0.2 x10 3/uL) 0.05 Abs Immat Gran (auto) (0.00 - 0.03 x10 3/uL) 0.15 H Immature Gran % (0.0 - 2.0 %) 1.5 Nucleated RBC % (0 - 0 %) 0.0 Nucleated RBCs # (Man) (0.0 - 0.1 x10 3/uL) 0.00 Laboratory Tests 08/05 0425 Chemistry Magnesium (1.6 - 2.6 mg/dL) 1.90 Results: labs reviewed, vital signs reviewed, rhythm personally rev'dTelemetry Interpretation:sinus rhythm Diagnosis, Assessment PlanPlan discussed with: patient, collaborating MD, nurse [...] with new onset LBBB -> now in sinus* preTAVR EKG without LBBB* continue metoprolol tartrate 25 mg BID * Stop amiodarone gtt* amiodarone 400 mg BID for 5 days, then 200 mg BID thereafter. Will see her in the clinic and taper her amiodarome to 200 mg daily* GQO9OW9-KJEt score 3, Eliquis 2.5 mg BID* EP consult * 08/04: 12 lead EKG still with LBBB* will arrange for cardiac event monitor outpatient Ok to DC home with Home health. Outpatient follow-up with Dr. Hernández. at 1010 at 1445 RPT #:[id number] OF REPORTPRProgress jfcl8601-27-64G09:13:00G.PFUT30082148-7644FCOuzsh able for patient rdpuCKHKOJVRITNUZN4842-02-45Y62:10:49 [facility] 2023-08-04 13:37:00 [id number] wFgWC9lD9qINZLW76fDg8wb2KmTny ldUwLTg2hvd+jRLPYkjegS6gOa32918-10-14G68:37:93007 3-[address] [address] PATIENT NAME: EVELYN GIBSON ADMIT DATE: 07/26/23ACCOUNT NO: [id number] ROOM NO: [facility] AGE: 83 REPORT TYPE: eELECTROCARDIOGRAM REPORT SEX: F ADMITTING PHYSICIAN:Apolinar Rankin MD ATTENDING PHYSICIAN:Apolinar Rankin MD Order:[id number] Reason : lbbb Test Date/Time Stamp:FriAug 04 [...] for LVH, may be normal variant ( [place] product )T wave abnormality, consider inferolateral ischemiaAbnormal ECGWhen compared with ECG of 02-AUG-2023 08:24,No changesConfirmed by MD KERLINE, KORTNEY ([id number]) on 08/04/2023 8:56:14 PM Referred By: Apolinar Rankin Confirmed by:KORTNEY FRANKS MD at 2056 PATIENT NAME: EVELYN GIBSON .[id number] AVAvailable for patient qtmuFZHVYOGDSPIUUT8592-50-31M31:56:43 [facility] 2023-08-04 12:17:00 [id number] Lw2KajMVvwdxS36mLYiCNI2tIAeoM RaW28O8pMIJGKc61Y93n+nom4Sd3167-50-32W16:17:00 [facility] ([facility])Cardiology Progress NoteREPORT#:[id number] REPORT STATUS: SignedREPORT INITIALIZATION DATE:08/04/23 TIME: 1216 PATIENT: EVELYN GIBSON UNIT #: [id number]#: [id number] [facility]DOB: [birth year] AGE: 83 SEX: F ATTEND: Apolinar Rankin MDA AUTHOR: Tabitha Herring AGACNPREPT SERVICE DT/TIME: 08/04/23 1217* ALL edits or amendments must be made [...] 08/04 0300 66 18 97 08/04 0201 58 15 111/50 72 97 08/04 0100 59 13 118/53 77 97 08/04 0001 65 20 110/53 77 98 08/04 0000 36.6 08/03 2301 59 16 115/56 80 97 08/03 2200 62 16 126/60 87 96 08/03 2101 70 20 109/54 78 98 08/03 2000 36.6 08/03 2000 69 17 123/55 79 98 08/03 1940 [...] HrsAmiodarone HCl (CORDARONE) 400 MG BID 9A 5P PO (CKD) Amiodarone HCl (CORDARONE) 200 MG ONCE ONE PO (DC) Polyethylene Glycol (MIRALAX) 17 GM DAILY PO Apixaban (ELIQUIS 5MG TABLET) 5 MG BID PO Amiodarone HCl (CORDARONE) 200 MG BID 9A 5P PO (DC) Amiodarone HCl (AMIODARONE HCL) 450 MG ASDIR IV (DC) Dextrose/Water (D5%W NON-DEHP) 250 MLMupirocin [...] ASDIR IV Status post:TAVR Physical ExamGeneral appearance: alert, awakeHead/Eyes: atraumaticENT: moist mucosal membranesNeck: full range of motionCardiovascular: CV assessment: regular rate and rhythm, BP pulses = bilaterally, normal heart soundsRespiratory: clear to auscultation, no distressAbdomen: softGenitourinary: no flank pain, no urinary catheterLower extremity: LE assessment: no edemaNeuro/DISPLAY ASSOCIATE: alert, oriented X 3Skin: dry, intact, normal [...] (100 - 108 mEq/L) 102 Carbon Dioxide (21 - 33 mEq/l) 30 Anion Gap (0 - 20) 2 BUN (7 - 25 mg/dL) 10 Creatinine (0.6 - 1.3 mg/dL) 0.7 Glomerular Filtr Rate (70 - 80) 84.7 H Glucose (77 - 141 mg/dL) 119 POC Glucose (70 - 110 MG/DL) 115 H 109 151 H 128 H Calcium (8.0 - 10.5 mg/dL) 8.6 Magnesium (1.6 - 2.6 mg/dL) 1.99 Laboratory Tests 08/04 0608 Hematology WBC (4.5 - 11.0 x10 3/uL) 11.3 H RBC (3.54 - 5.02 x10 6/uL) 3.40 L Hgb (11.0 - 15.0 g/dL) 9.9 L Hct (33.0 - 45.0 %) 30.2 L MCV (81.0 - 99.0 fL) 88.8 MCH (27.0 - 33.0 pg) 29.1 MCHC (33.0 - 37.0 g/dL) 32.8 L RDW (11.5 - 14.5 %) 13.6 Plt Count (150 - 400 x10 3/uL) 225 MPV (7.0 - 9.0 fL) 11.9 H Neut % (Auto) (56.0 - 77.0 %) 69.8 Lymph % (Auto) (14.0 - 32.0 %) 15.7 [place] % (Auto) (4.8 - 9.0 %) 11.1 H Eos % (Auto) (0.3 - 3.7 %) 2.0 Baso % (Auto) (0.0 - 2.0 %) 0.4 Neut # (Auto) (2.0 - 7.6 x10 3/uL) 7.92 H Lymph # (Auto) (1.0 - 3.8 x10 3/uL) 1.78 [place] # (Auto) (0.1 - 0.8 x10 3/uL) [...] [place] M.D. Results: labs reviewed, vital signs reviewed, rhythm personally rev'dTelemetry Interpretation:sinus rhythm Diagnosis, Assessment PlanPlan discussed with: patient, collaborating MD, consultants (Dr. Barney), nurse Free Text DxA P NotesFree Text [...] # Paroysmal atrial fibrillation with new LBBB* preTAVR EKG without LBBB* continue metoprolol tartrate 25 mg BID * Stop amiodarone gtt* amiodarone 400 mg BID for 5 days, then 200 mg BID thereafter. Will see her in the clinic and taper her amiodarome to 200 mg daily* VEL9ZI7-UQFx score 3, Eliquis 2.5 mg BID* EP consult * 08/04: 12 lead EKG still with LBBB Ok to transfer out of [facility] home in AM. at 1401 at 1443 RPT #:[id number] OF REPORTPRProgress ztxg5435-43-50U74:17:00G.ZKON96347051-6767ZJUuslh able for patient bfrxTTMSECKKAMWTKM7866-06-49O83:01:42 [facility] 2023-08-04 09:28:00 [id number] k8YMqZKzN4cF7bY+wQ0OTzZSoTrki iBqNCip+D/XZraEC64R1euKarL10100-57-77L34:28:00 [facility] HospitalCardi[facility] ProgREPORT#:[id number] REPORT STATUS: SignedREPORT INITIALIZATION DATE:08/04/23 TIME: 927 PATIENT: EVELYN GIBSON UNIT #: [id number]#: [id number] [address] AGE: 83 SEX: F ATTEND: Apolinar Rankin MDA AUTHOR: Dayna Younger PhysicREPT SERVICE DT/TIME: 08/04/23927* ALL edits or amendments must be made on the electronic/computer document * GeneralPost-op: day 4Status post:TAVR SubjectiveChief complaint:POST TAVR Review of SystemsConstitutional:Reports: fatigue. Skin:Denies: bruising, contusion, diaphoresis. Allergy/Immun:Denies: hives, itching, rhinorrhea. Eyes:Denies: discharge, visual loss/blurred. ENT:Denies: toothache, voice change. Respiratory:Reports: BALBUENA (dyspnea on exertion). Cardiovascular:Reports: chest pain. GI:Denies: abdominal pain, nausea, vomiting. :Denies: dysuria, flank pain. Musculoskeletal:Denies: neck pain, thoracic pain. Neuro:Denies: focal weakness, slurred speech, syncope. All systems rev neg: except as marked Objective GeneralVS/I OLast Documented: Result Date Time Pulse Ox 98 08/04 050 B/P 116/54 08/04 050 B/P Mean 78 08/04 050 Pulse 60 08/04 050 Resp 18 08/04 050 Temp 97.8 08/04 0000 O2 Delivery Room [...] soundsRespiratory: aerating well, clear to auscultation, symmetric expansion, no distressAbdomen: soft, non-tenderGenitourinary: no bladder distention, no flank painExtremities: dry, moves all, normal capillary refill, normal temperatureMusculoskeletal: full range of motion, painless range of motionNeuro/DISPLAY ASSOCIATE: alert, oriented X 3Psychiatry: normal affect, normal judgment/insight Diagnosis, Assessment PlanFree Text A P:83-year-old female, PMHx HTN, diabetes on metformin, HLD, back pain, arthritis, vertigo for which she reportedly takes a Xanax, breast cancer left-sided mastectomy. Patient is transferred to us from [facility], patient of Dr. Hernández, and she reports chest pressure, burning sensation in her throat, sensation of nausea which started a few weeks ago after having a GI illness with vomiting. Patient was evaluated at [facility] for reports of chest pain, and findings of normal EKG, troponins within normal limits, BNP elevated at 1397, UA negative, chest x-ray stable, echocardiogram done with findings of severe aortic stenosis patient referred to us for TAVR evaluation. Patient reports cardiac cath done at [facility], however, we have no report of cardiac cath [...] and he agrees with plan for TAVR.-TAVR toch-eq-Zrzopzuimr ikobhvv-Mtaimqecjbsf-hzkpg restriction-Resume prior hospital meds 07/27/2023TAVR eval-Pending CT qnjow-Afhylwzqbktu-ljoyp restrictionLeukocytosis, afebrile, UA 1+ leukocyte Estrace. Urine [...] active bleeding. Continue to monitor per Dr. Curtis. EP following for rhythm managementContinue supportive care. 08/03/23POD 4S/P TAVRa fib, EP consulted. Echo done, reviewed by cardiology. Patient has been out of bed with PT/OT.Patient with small amount of oozing from bilateral groin sites. Will obtain ultrasound. Groins remain soft.Remains sinus rhythm.ICC following. Continue supportive care. 08/04/23pod 5Patient resting comfortable,No further bleeding from the bilateral groin sites.Ultrasounds shows no active bleeding with only small hematomas.Patient has been out of bedsinus rhythm, managed by cardiology.EP consulted and followingDischarge when okay with Cardiology and EP. at 1202 at 1725 RPT #:[id number] OF REPORTPRProgress sodu5814-01-23Y16:28:00G.VOKW86655955-9629VPSnnza able for patient bgsxRTWYJKAFOMBUBT3005-71-05K27:03:11 [facility] 2023-08-04 09:06:00 [id number] 8jVlKr90XNYnb23dYzHxDsS977RET 6kbH8SARDlrDC7rWYFPF78XXH224081-04-56Y11:06:00 [facility] ([facility])EP Progress NoteREPORT#:[id number] REPORT STATUS: SignedREPORT INITIALIZATION DATE:08/04/23 TIME: 905 PATIENT: EVELYN GIBSON UNIT #: [id number]#: [id number] [address] [birth year] AGE: 83 SEX: F ATTEND: Apolinar Rankin [facility] AUTHOR: Roberto Sahni NPREPT SERVICE DT/TIME: 08/04/23905* [...] pulses = bilaterally, normal heart sounds, systolic murmur grade 3/6 Respiratory: clear to auscultation, no distressAbdomen: soft, non-tenderExtremities: dry, moves allMusculoskeletal: full range of motionNeuro/DISPLAY ASSOCIATE: alert, oriented X 3Skin: dry, intactTelemetry Interpretation:Sinus [...] Severe Aortic StenosisS/p TAVR procedure, management by CTS/Cardiology.Shawn Dukes 08/04/23 1451:Attestations Physician AttestationAgree w/findings plan:Agree with the findings and plan as documented * my personal evaluation isPAFAS,S/P TAVRNew onset LBBBContinue amiodarone as plannedNo sign of AVBConsider Event monitor as outpatient Shawn Barney MD at 1228 at 1456 RPT #:[id number] OF REPORTPRProgress rpzr6952-20-60N47:06:00G.MGSG04178299-5092JRExcfy able for patient kpdmNDJXGNNQZOVEFP6532-38-80H53:29:04 [facility] 2023-08-03 11:07:00 [id number]/R Bp+qljckhIC8OqiyVS9IMMiX7xdzE dHEdFJ//8K9EXzuvDu0Sn4x20K77793-45-93D02:07:00 [facility] ([facility])Cardiology Progress NoteREPORT#:[id number] REPORT STATUS: SignedREPORT INITIALIZATION DATE:08/03/23 TIME: 1106 PATIENT: EVELYN GIBSON UNIT #: [id number]#: [id number] [address] [birth year] AGE: 83 SEX: F ATTEND: Apolinar Rankin AUTHOR: Derrick Tran MDREPT SERVICE DT/TIME: 08/03/23 110* ALL edits or amendments must be made on the electronic/computer document * SubjectiveChief complaint:SOBHPI:A very pleasant 83-year-old female patient status post breast cystectomy for breast cancer in the past hypertension dyslipidemia. She has been having progressive shortness of breath on exertion as well as chest pressure on exertion she was [facility] [place] she was found out to have severe aortic stenosis onthe echocardiogram. She had cardiac catheterization report but would not have access to the results. Dr. Hrenández is her local city driver Review of SystemsRespiratory:Denies: BALBUENA (dyspnea on exertion), SOB. Cardiovascular:Denies: chest pain, BALBUENA (dyspnea on exertion), edema, orthopnea, palpitations, parox nocturnal dyspnea, other. Objective GeneralVS/I O:24 hour I O ending at 0700: 08/03 [...] 67 17 115/57 82 97 08/03 0201 58 14 84/38 55 98 08/03 0000 60 14 98/46 66 97 08/02 2000 77 18 99/48 69 96 08/02 1900 102 20 104/48 69 95 08/02 1800 88 25 127/57 82 94 08/02 1700 83 16 120/56 81 96 08/02 1600 98.0 [...] Atropine Sulfate 0.5 MG ASDIR PRN 07/30 915 AC IV 02/06 0914 Blood Formation,Coagulation Sig/Vishnu Start time Last Medication Dose Route Stop Time Status Admin Apixaban 5 MG BID 08/01 2100 AC 08/03 PO 10/30 205 0904 Clopidogrel Bisulfate 75 MG DAILY 07/30 1200 AC 08/03 PO 10/29 0859 0904 Cardiovascular Drugs Sig/Vishnu Start time Last Medication Dose Route Stop Time Status Admin Amiodarone HCl 200 MG BID 9A 5P 07/31 1700 AC 08/03 PO 10/29 1659 0904 Amiodarone HCl 450 MG ASDIR 07/31 0800 CKD 08/02 Dextrose/Water 250 ML IV 10/29 0759 1739 Simvastatin 10 MG 2100 07/27 2100 AC 08/02 PO 10/25 Metoprolol Tartrate 25 MG BID 07/26 1300 AC 08/03 PO 0904 Central Nervous System Agents Sig/Vishnu Start time Last Medication Dose Route Stop Time Status Admin Magnesium Sulfate 50 ML ONCE ONE 08/02 1730 DC 08/02 IV 08/02 1929 1738 Alprazolam 0.5 MG Q8H PRN PRN 07/26 1215 AC 08/02 PO 10/24 1214 1758 Acetaminophen 650 MG Q4H PRN PRN 07/26 0745 AC PO 10/24 0744 Electrolytic, Caloric, And Altaf Sig/Vishnu Start time Last Medication Dose Route Stop Time Status Admin Sodium Chloride 500 ML ASDIR PRN 07/30 0915 AC IV 10/28 0914 Dextrose/Water 125 ML ASDIR PRN 07/26 09 CKD IV 10/24 0859 Dextrose/Water 250 ML ASDIR PRN 07/26 09 CKD IV 10/24 0859 Sodium Chloride 10 [...] 0744 1653 Hormones And Synthetic Substit Sig/Vishnu Start time Last Medication Dose Route Stop Time Status Admin Insulin Human Lispro 0 AC HS 07/26 1130 AC 07/31 SUBQ 10/24 1129 1211 Glucagon 1 MG ASDIR PRN 07/26 0900 AC IM 10/24 0859 Skin And Mucous Membrane Agent Sig/Vishnu Start time Last Medication Dose Route Stop Time Status Admin Mupirocin 1 APPLIC BID 07/30 2100 AC 08/03 NASAL 08/04 0901 0904 Status post:TAVR Physical ExamGeneral appearance: awakeHead/Eyes: atraumaticENT: moist mucosal membranesNeck: full range of motionCardiovascular: CV assessment: regular rate and rhythm, BP pulses = bilaterally, normal heart sounds, systolic murmur grade 3/6 Respiratory: decreased breath sounds, no distressAbdomen: softGenitourinary: no flank pain, no urinary catheterLower extremity: LE assessment: no edemaNeuro/DISPLAY ASSOCIATE: alert, oriented X 3Skin: dry, intact, normal colorPsychiatry: normal affect, normal mood ResultsFindings/Data:Laboratory Tests 08/03 08/02 08/02 08/02 0505 2041 1742 1254 Chemistry Sodium (134 - 147 mEq/L) 129 L Potassium (3.4 - 5.0 mEq/L) 4.2 Chloride (100 - 108 mEq/L) 99 L Carbon Dioxide (21 - 33 mEq/l) 29 Anion Gap (0 - 20) 5 BUN (7 - 25 mg/dL) 10 Creatinine (0.6 - 1.3 mg/dL) 0.8 Glomerular Filtr Rate (70 - 80) 72.2 Glucose (77 [...] % (Auto) (14.0 - 32.0 %) 16.6 [place] % (Auto) (4.8 - 9.0 %) 11.6 H Eos % (Auto) (0.3 - 3.7 %) 1.9 Baso % (Auto) (0.0 - 2.0 %) 0.3 Neut # (Auto) (2.0 - 7.6 x10 3/uL) 7.20 Lymph # (Auto) (1.0 - 3.8 x10 3/uL) 1.74 [place]os # (Auto) (0.1 - 0.8 x10 3/uL) [...] BID* Lovenox 1 mg/kg x1 dose today* AFT6IV9-NCFe score 3* EP consult * recurrent afib [...] IN NSR, EP FOLLOWING-NA+ 129, RESTRICT FLUIDS-NOT ON ANY THIAZIDE DIURETIC - AVOID-NO LONGER IN LBBB at 1140 RPT #:[id number] OF REPORTPRProgress ikgk8027-32-70S58:07:00G.SQNE13931693-4568AHNcsmq able for patient mzzoFJIIFWRFVGXSXJ6189-90-58S55:41:04 [facility] 2023-08-03 10:10:00 [id number] 2qvPgysWi6VJfPkFz2nnjgY3CULNx ERlrUpCYP4UoMsMldAktfLjG/NF0251-93-25F57:10:00 [facility] HospitalCardiothoracic Surgery ProgREPORT#:[id number] REPORT STATUS: SignedREPORT INITIALIZATION DATE:08/03/23 TIME: 101 PATIENT: EVELYN GIBSON UNIT #: [id number]#: [id number] ROOM/BED: 3301-1DOB: [birth year] AGE: 83 SEX: F ATTEND: Apolinar Rankin MDA AUTHOR: Dayna Younger PhysicREPT SERVICE DT/TIME: 08/03/23 1010* ALL edits or amendments must be made on the electronic/computer document * GeneralStatus post:TAVR SubjectiveChief complaint:POST TAVR Review of SystemsConstitutional:Reports: fatigue. Skin:Denies: bruising, contusion, diaphoresis. Allergy/Immun:Denies: hives, itching, rhinorrhea. Eyes:Denies: discharge, visual loss/blurred. ENT:Denies: toothache, voice change. Respiratory:Reports: BALBUENA (dyspnea on exertion). Cardiovascular:Reports: chest pain. GI:Denies: abdominal pain, nausea, vomiting. :Denies: dysuria, flank pain. Musculoskeletal:Denies: neck pain, thoracic pain. Neuro:Denies: focal weakness, slurred [...] soundsRespiratory: aerating well, clear to auscultation, symmetric expansion, no distressAbdomen: soft, non-tenderGenitourinary: no bladder distention, no flank painExtremities: dry, moves all, normal capillary refill, normal temperatureMusculoskeletal: full range of motion, painless range of motionNeuro/DISPLAY ASSOCIATE: alert, oriented X 3Psychiatry: normal affect, normal judgment/insight Diagnosis, Assessment PlanFree Text A P:83-year-old female, PMHx HTN, diabetes on metformin, HLD, back pain, arthritis, vertigo for which she reportedly takes a Xanax, breast cancer left-sided mastectomy. Patient is transferred to us from [facility], patient of Dr. Hernández, and she reports chest pressure, burning sensation in her throat, sensation of nausea which started a few weeks ago after having a GI illness with vomiting. Patient was evaluated at [facility] for reports of chest pain, and findings of normal EKG, troponins within normal limits, BNP elevated at 1397, UA negative, chest x-ray stable, echocardiogram done with findings of severe aortic stenosis patient referred to us for TAVR evaluation. Patient reports cardiac cath done at [facility], however, we have no report of cardiac cath [...] and he agrees with plan for TAVR.-TAVR vgut-qi-Cnjppmcobq eyagqnz-Dmacytmchnru-bocde restriction-Resume prior hospital meds 07/27/2023TAVR eval-Pending CT iklrm-Dsqmpxiezchs-zjagi restrictionLeukocytosis, afebrile, UA 1+ leukocyte Estrace. Urine [...] active bleeding. Continue to monitor per Dr. Curtis. EP following for rhythm managementContinue supportive care. 08/03/23POD 34S/P TAVRa fib, EP consulted. Echo done, reviewed by cardiology. Patient has been out of bed with PT/OT.Patient with small amount of oozing from bilateral groin sites. Will obtain ultrasound. Groins remain soft.Remains sinus rhythm.ICC following. Continue supportive care. at 1012 at 0934 RPT #:[id number] OF REPORTPRProgress abew7251-36-44X80:10:00G.[id number] able for patient hkhqUOGYWXBXLADTUW0148-88-67X62:12:30 [facility] 2023-08-03 10:05:00 [id number] 3nXJfJq2UVMPigIQJUz10HxNBIknL eWLtPLygvmxmqL7b8Yfy7ZQ8tM86446-09-22M04:05:97325 2-[address] [place] [address] PATIENT NAME: EVELYN GIBSON ADMIT DATE: 07/26/23ACCOUNT NO: [id number] ROOM NO: G.3301 AGE: 83 REPORT TYPE: eECHOCARDIOGRAM REPORT SEX: F ADMITTING PHYSICIAN:Apolinar Rankin MD ATTENDING PHYSICIAN:Apolinar Rankin MD *[place], [place] [address]Phone: [place]: [phone] Limited Transthoracic Echocardiogram Patient: Gareth Gibson Date: 08/01/2023 BP: 133 / 61 Location: JERMAN: [id number] : 1940 Age: 83 Height: 62 in / 157.5 cmAccession#: [id number] Gender: F Weight: 180.6 lb / 82.1 kgBMI/BSA: 33.1 kg/m 2 / 1.83 m 2 *Ordering Physician: * Tabitha Herring *Interpreting Physician: * Parmjit Houser MD*Bridge Crane Operator: Edilma Maxwell Indications: POST TAVR. Study data: Transthoracic echocardiogram, limited study. Procedure:Transthoracic echocardiography was performed. Image quality wasadequate. Limited 2D and limited spectral Doppler. Location: Bedside. Patient status: Inpatient. Patient room number: 3301. Study status:Routine. Findings Left ventricle: The cavity size is normal. Wall thickness is moderatelyincreased. Systolic function is normal. The estimated ejection fractionis 55-60%. Wall motion [...] noevidence of stenosis. There is no regurgitation.Mitral valve: The annulus is moderately to severely calcified. Thereis no evidence of stenosis. There is mild regurgitation.Tricuspid valve: The valve is structurally normal. There is moderateregurgitation.Pulmonic valve: The valve is structurally normal. There is noregurgitation.Pericardium: A trivial pericardial effusion is identified.Pulmonary arteries:Main pulmonary artery: The artery is of normal size.Systemic veins:Inferior vena cava: The vessel is normal in size. Measurements Left ventricle Value 07/31/2023 Ref ENID, LAX 4.3 cm 3.6 3.8 - 5.2 ESD, LAX 2.9 cm 2.4 2.2 - 3.5 ESD/bsa, 1.6 cm/m 2 1.3 1.3 LAX - 2.1 FS, LAX 32 % 33 27 - 45 ESD/bsa 3.3 cm/m 2 3.2 ---- major ax, A4C ENID/bsa 3.3 cm/m 2 3.2 ---- minor ax, A4C ENID major 6.6 cm 7.6 ---- ax, A2C ENID/bsa 3.6 cm/m 2 4.0 ---- major ax, A2C PW, ED 1.4 cm 1.5 0.6 - 0.9 IVS/PW, ED 0.97 0.96 ---- EF 60 % 62 54 - 74 LVOT Value 07/31/2023 Ref Diam, S 2.01 cm 1.90 ---- Area 3.2 cm 2 2.8 ----PATIENT NAME: EVELYN GIBSON Peak nadine, S 1.28 m/sec -1.24 ---- Mean nadine, S 0.8 m/sec 0.86 ---- VTI, S 28.6 cm 22.0 ---- Peak grad, 7 mm Hg 6 ---- S Mean grad, 3 mm Hg 3 ---- S SV 91 ml 61 ---- Qs 5.95 L/min 14.52 ---- Qs/bsa 3.2 L/(min-m 2) 7.6 ---- SV/bsa 50 ml/m 2 32 ---- Ventricular septum Value 07/31/2023 Ref IVS, ED 1.4 cm 1.5 0.6 - 0.9 Right ventricle Value 07/31/2023 Ref ENID, LAX 2.8 cm 2.9 ---- Pressure, S 54 mm Hg ---- Left atrium Value 07/31/2023 Ref Vol/bsa, 35 ml/m 2 25 11 - ES, 1-p A4C 40 Vol, ES, 83 ml 60 ---- 2-p Vol/bsa, 45 ml/m 2 31 16 - ES, 2-p 34 Vol/bsa, 40 ml/m 2 27 16 - ES, A/L 34 AP dim, ES 3.7 cm 2.7 MM - 3.8 LA/Ao root 1.14 ---- ratio, MM Aortic valve Value 07/31/2023 Ref Leaflet 1.50 cm ---- sep, MM Peak v, S 2 m/sec 1.93 ---- Mean v, S 1.24 m/sec 1.37 ---- VTI, S 42.5 cm 41.0 ---- Mean grad, 7.4 mm Hg 8.4 ---- S Peak grad, 16.1 mm Hg 14.9 ---- S [...] ---- D Pulmonic valve Value 07/31/2023 Ref SD v, ED 0.65 m/sec 2.38 ---- Tricuspid valve Value 07/31/2023 Ref TR peak v 3.33 m/sec <=2. 8 Peak RV-RA 44 mm Hg ---- grad, S Aortic root Value 07/31/2023 Ref Root diam, 3.29 cm ---- ED MM Pulmonary artery Value 07/31/2023 Ref Pressure, S 54.3 mm Hg ---- Systemic veins Value 07/31/2023 Ref Estimated 10 mm Hg ---- CVP Conclusions Summary: 1. Left ventricle: The cavity size is normal. Wall thickness is moderately increased. Systolic function is normal. The estimated ejection fraction is 55-60%. Wall motion is normal; there are no regional wall motion abnormalities.2. Right ventricle: The RV pressure during systole by Doppler is 54 mm Hg.3. Left atrium: The atrium is moderately dilated.4. Aortic valve: There is a bioprosthetic valve. There is a mild perivalvular leak.5. Mitral valve: The annulus is moderately to severely calcified.6. Tricuspid valve: There is moderate regurgitation.7. Pericardium, extracardiac: A trivial pericardial effusion is identified. Prepared and electronically signed by PATIENT NAME: EVELYN GIBSON Parmjit Houser MD08/03/2023 10:05 at 1005 PATIENT NAME: EVELYN GIBSNO :05:0 0G.[id number] for patient tshgDBGNNVDEFEODBQ1571-55-73A16:06:20 [facility] 2023-08-02 11:49:00 [id number]/xkZXgq Kdc+WP5sQFwQQ+bTE2fQnsOnM5MYK 6/TpVzGu1EuXUkCBJPUB6RFMF970523-62-25V32:49:00 [facility] HospitalCardiology Progress NoteREPORT#:[id number] REPORT STATUS: SignedREPORT INITIALIZATION DATE:08/02/23 TIME: 1148 PATIENT: EVELYN GIBSON UNIT #: [id number]#: [id number] [address] [birth year] AGE: 83 SEX: F ATTEND: Apolinar Rankin MDA AUTHOR: Derrick Tran MDREPT SERVICE DT/TIME: 08/02/23 1149* ALL edits or amendments must be made on the electronic/computer document * SubjectiveChief complaint:SOBHPI:A very pleasant 83-year-old female patient status post breast cystectomy for breast cancer in the past hypertension dyslipidemia. She has been having progressive shortness of breath on exertion as well as chest pressure on exertion she was admitted at [facility] in [facility] was transferred for after she was found out to have severe aortic stenosis onthe echocardiogram. She had cardiac catheterization report but would not have access to the results. Dr. Hernández is her local city driver Review of SystemsRespiratory:Denies: BALBUENA (dyspnea on exertion), SOB. Cardiovascular:Denies: chest pain, BALBUENA (dyspnea on exertion), edema, orthopnea, palpitations, parox nocturnal dyspnea, other. Objective GeneralVS/I O:24 hour I O ending at 0700: 08/03 [...] 67 17 115/57 82 97 08/03 0201 58 14 84/38 55 98 08/03 0000 60 14 98/46 66 97 08/02 2000 77 18 99/48 69 96 08/02 1900 102 20 104/48 69 95 08/02 1800 88 25 127/57 82 94 08/02 1700 83 16 120/56 81 96 08/02 1600 98.0 [...] motionCardiovascular: CV assessment: regular rate and rhythm, BP pulses = bilaterally, normal heart sounds, systolic murmur grade 3/6 Respiratory: decreased breath sounds, no distressAbdomen: softGenitourinary: no flank pain, no urinary catheterLower extremity: LE assessment: no edemaNeuro/DISPLAY ASSOCIATE: alert, oriented X 3Skin: dry, intact, normal colorPsychiatry: normal affect, normal mood ResultsFindings/Data:Laboratory Tests 08/03 08/02 08/02 08/02 0505 2041 1742 1254 Chemistry Sodium (134 - 147 mEq/L) 129 L Potassium (3.4 - 5.0 mEq/L) 4.2 Chloride (100 - 108 mEq/L) 99 L Carbon Dioxide (21 - 33 mEq/l) 29 Anion Gap (0 - 20) 5 BUN (7 - 25 mg/dL) 10 Creatinine (0.6 - 1.3 mg/dL) 0.8 Glomerular Filtr Rate (70 - 80) 72.2 Glucose (77 [...] % (Auto) (14.0 - 32.0 %) 16.6 [place] % (Auto) (4.8 - 9.0 %) 11.6 H Eos % (Auto) (0.3 - 3.7 %) 1.9 Baso % (Auto) (0.0 - 2.0 %) 0.3 Neut # (Auto) (2.0 - 7.6 x10 3/uL) 7.20 Lymph # (Auto) (1.0 - 3.8 x10 3/uL) 1.74 [place] # (Auto) (0.1 - 0.8 x10 3/uL) [...] BID* Lovenox 1 mg/kg x1 dose today* ROW3TS6-LLZu score 3* EP consult * recurrent afib RVR, rebolus amio, up amio gtt to 1 mg Get PT/OTMobilize OOB Keep in CCU 08/02/23:-S/P TAVR-POST OP A FIB, WAS STARTED ON IV AMIOD + BOLUS AT 8;30 AM, IN NSR-LBBB, POST TAVR, RESOLVED, UNLIKLEY NEED FOR PERMANENT PACEMAKER-CONTINUE AMIOD FOR MOW-EP FOLLOWING at 1107 RPT #:[id number] OF REPORTPRProgress wsmm2179-70-45Q88:49:00G.IDKE95877923-9163CGInpxc able for patient acvhRDDYIDIXEYHUQL8616-54-85U23:08:00 [facility] 2023-08-02 11:31:00 [id number] 9pMhBImk4mPEvjiPKW4UWlfOVP5la fj1SoDTbc9+16suaoAUkr9S/DA/9680-55-86D46:31:00 [facility] ([facility])Clinical NoteREPORT#:[id number] REPORT STATUS: SignedREPORT INITIALIZATION DATE:08/02/23 TIME: 113 PATIENT: EVELYN GIBSON UNIT #: [id number]#: [id number] [address] AGE: 83 SEX: F ATTEND: Apolinar Rankin MDATIFFANIE AUTHOR: Madelyn Caballero NPREPT SERVICE DT/TIME: 08/02/23 1131* ALL edits or amendments must be made on the electronic/computer document * Clinical NoteNote:pt seen and examined - CZXE2nfjo RVR converted last night with amio bolus x1. on BB/statin/plavix/eliquishemodynamically stable on RAtolerating diet, bowel regimen with miralax/colacenegative balanceWBC count stable, afebrilewill cont to monitor peripherally. TX when cleared by CTSplease notify ICC for any critical care needs [phone] Vital Signs Date Temp Pulse Resp B/P B/P Mean Pulse Ox FiO2 08/01-08/02 97.5-98.2 59-70 15-25 108-133/52-63 73-90 93-99 at 1139 RPT #:[id number] OF REPORTCLClinical rfml4055-18-81F54:31:00G.NPPZ36651776-6244TOBfqvj able for patient lnbqDFNVWKDMVXLBTP2077-55-76Y45:39:28 [facility] 2023-08-02 08:24:00 [id number] WyNYQzdM/9/e2OqQd19uDGCU6F//q HjA7ISJd96sFivUXVLrBY28+Aty8672-81-47D55:24:78893 2-[address] [address] PATIENT NAME: EVELYN GIBSON ADMIT DATE: 07/26/23ACCOUNT NO: [id number] ROOM NO: G.3301 AGE: 83 REPORT TYPE: eELECTROCARDIOGRAM REPORT SEX: F ADMITTING PHYSICIAN:Apolinar Rankin MD ATTENDING PHYSICIAN:Apolinar Rankin MD Order:[id number] Reason : , Test Date/Time Stamp:FriAug 02 2023 08:24:13Blood Pressure : / mmHGVent. Rate : 132 BPM Atrial Rate : 000 BPM P-R Int : 000 ms QRS Dur : 134 ms QT Int : 336 ms P-R-T Axes : 000 -46 139 degrees QTc Int : 497 ms Atrial fibrillation with rapid ventricular responseLeft axis deviationNonspecific intraventricular blockMinimal voltage criteria for LVH, may be normal variant ( [place] product )Marked T wave abnormality, consider anterolateral ischemiaAbnormal ECGWhen compared with ECG of 01-AUG-2023 09:31,Significant changes have occurredConfirmed by MD KERLINE, KORTNEY ([id number]) on 08/03/2023 9:26:13 PM Referred By: Apolinar Rankin Confirmed by:KORTNEY FRANKS MD at 2126 PATIENT NAME: EVELYN GIBSON .[id number] AVAvailable for patient aifvUZSXJLBAWJKGEQ6803-05-44W46:26:41 [facility] 2023-08-02 06:10:00 [id number] f7leccaLT3ggCDcdE+15fqSLwDMRa KIEqrq1PslVcB5LxsGxRvCn3OeD5948-04-51Z73:10:00 [facility] ([facility])Cardiothoracic Surgery ProgREPORT#:[id number] REPORT STATUS: SignedREPORT INITIALIZATION DATE:08/02/23 TIME: 0610 PATIENT: EVELYN GIBSON UNIT #: [id number]#: [id number] ROOM/BED: 3396-1DOB: [birth year] AGE: 83 SEX: F ATTEND: Apolinar Rankni MDA AUTHOR: Dayna Younger PhysicREPT SERVICE DT/TIME: 08/02/23 0610* ALL edits or amendments must be made on the electronic/computer document * GeneralPost-op: day 3Status post:TAVR SubjectiveChief complaint:POST TAVR Review of SystemsConstitutional:Reports: fatigue. Skin:Denies: bruising, contusion, diaphoresis. Allergy/Immun:Denies: hives, itching, rhinorrhea. Eyes:Denies: discharge, visual loss/blurred. ENT:Denies: toothache, voice change. Respiratory:Reports: BALBUENA (dyspnea on exertion). Cardiovascular:Reports: chest pain. GI:Denies: abdominal pain, nausea, vomiting. :Denies: dysuria, flank pain. Musculoskeletal:Denies: neck pain, thoracic pain. Neuro:Denies: focal weakness, slurred speech, syncope. All systems rev neg: except as marked Objective GeneralVS/I OLast Documented: Result Date Time Temp 97.8 08/01 2000 Pulse Ox 98 08/01 1800 B/P 128/61 08/01 1800 B/P Mean 88 08/01 1800 Pulse 68 08/01 1800 Resp 18 08/01 1800 O2 Delivery Room air 08/01 0930 24 hour I O ending at 0700: 08/02 0700 08/01 1900 Intake Total 300 Output Total 800 900 Balance -800 -600 Intake, Oral 300 Output, Urine 800 900 PATIENT WEIGHT: Weight (lb): 190Weight (oz): 11.2Weight (kg): 86.500 Physical ExamGeneral appearance: alert, awake, orientedHEENT: anicteric, mucosal membranes moist, pupils reactive to lightNeck: full range of motion, non-tenderCardiovascular: irregular rhythm, normal heart soundsRespiratory: aerating well, clear to auscultation, symmetric expansion, no distressAbdomen: soft, non-tenderGenitourinary: no bladder distention, no flank painExtremities: dry, moves all, normal capillary refill, normal temperatureMusculoskeletal: full range of motion, painless range of motionNeuro/DISPLAY ASSOCIATE: alert, oriented X 3Psychiatry: normal affect, normal judgment/insight Diagnosis, Assessment PlanFree Text A P:83-year-old female, PMHx HTN, diabetes on metformin, HLD, back pain, arthritis, vertigo for which she reportedly takes a Xanax, breast cancer left-sided mastectomy. Patient is transferred to us from [facility], patient of Dr. Hernández, and she reports chest pressure, burning sensation in her throat, sensation of nausea which started a few weeks ago after having a GI illness with vomiting. Patient was evaluated at [facility] for reports of chest pain, and findings of normal EKG, troponins within normal limits, BNP elevated at 1397, UA negative, chest x-ray stable, echocardiogram done with findings of severe aortic stenosis patient referred to us for TAVR evaluation. Patient reports cardiac cath done at [facility], however, we have no report of cardiac cath [...] and he agrees with plan for TAVR.-TAVR pjno-qc-Ophhywrofo nrkcjit-Jbnpfyzydsgh-zyprq restriction-Resume prior hospital meds 07/27/2023TAVR eval-Pending CT qbvxs-Rhgakldqsrzy-lwyvz restrictionLeukocytosis, afebrile, UA 1+ leukocyte Estrace. Urine [...] active bleeding. Continue to monitor per Dr. Curtis. EP following for rhythm managementContinue supportive care. at 0842 at 1725 RPT #:[id number] OF REPORTPRProgress lbxd7969-38-38J73:10:00G.GMST60727244-1796QWQdykl able for patient lohcQKFLBMSAUHVHJW8070-35-76E31:42:30 [facility] 2023-08-01 09:31:00 [id number] KilCPiS9SJVOLqryKtY+VAJHv0MK4 jtabIEagAGWI46hHilDNBJWaezp0776-38-10D24:31:24066 6-0098 [place] [address] PATIENT NAME: EVELYN GIBSON ADMIT DATE: 07/26/23ACCOUNT NO: [id number] ROOM NO: G.3396 AGE: 83 REPORT TYPE: eELECTROCARDIOGRAM REPORT SEX: F ADMITTING PHYSICIAN:Apolinar Rankin MD ATTENDING PHYSICIAN:Apolinar Rankin MD Order:[id number] Reason : AFIB RVR Test Date/Time Stamp:FriAug 01 2023 09:31:03Blood Pressure : / mmHGVent. Rate : 075 BPM Atrial Rate : 075 BPM P-R Int : 158 ms QRS Dur : 146 ms QT Int : 466 ms P-R-T Axes : 084 -21 120 degrees QTc Int : 520 ms Normal sinus rhythmPossible Left atrial enlargementLeft bundle branch blockAbnormal ECGWhen compared with ECG of 31-JUL-2023 10:18,No significant change was foundConfirmed by MD FRANKS GERARD ([id number]) on 08/07/2023 9:02:00 PM Referred By: Apolinar Rankin Confirmed by:KORTNEY FRANKS MD at 2101 PATIENT NAME: EVELYN GIBSON .[id number] AVAvailable for patient iiceGZFGQMIBZMIEAT9504-51-21U73:02:22 [facility] 2023-08-01 09:30:00 [id number] hw13266b4IX77mmI2sGpzCPRD917o x6D0cphrbhob+6S5OT0k1P2aevk1856-80-82V00:30:00 [facility] HospitalCardiothor[facility] Surgery ProgREPORT#:[id number] REPORT STATUS: SignedREPORT INITIALIZATION DATE:08/01/23 TIME: 929 PATIENT: EVELYN GIBSON UNIT #: [id number]#: [id number] [place] [facility]DOB: [birth year] AGE: 83 SEX: F ATTEND: Apolinar Rankin MDA AUTHOR: Dayna Younger PhysicREPT SERVICE DT/TIME: 08/01/23929* ALL edits or amendments must be made on the electronic/computer document * GeneralPost-op: day 2Status post:TAVR SubjectiveChief complaint:POST TAVR Review of SystemsConstitutional:Reports: fatigue. Skin:Denies: bruising, contusion, diaphoresis. Allergy/Immun:Denies: hives, itching, rhinorrhea. Eyes:Denies: discharge, visual loss/blurred. ENT:Denies: toothache, voice change. Respiratory:Reports: BALBUENA (dyspnea on exertion). Cardiovascular:Reports: chest pain. GI:Denies: abdominal pain, nausea, vomiting. :Denies: dysuria, flank pain. Musculoskeletal:Denies: neck pain, thoracic pain. Neuro:Denies: focal weakness, slurred speech, syncope. All systems rev neg: except as marked Objective GeneralVS/I OLast Documented: Result Date Time Temp 97.5 08/01 810 Pulse Ox 86 08/01 800 B/P 113/75 08/01 800 B/P Mean 90 08/01 800 Pulse 130 08/01 0800 Resp 15 08/01 0701 O2 Delivery [...] soundsRespiratory: aerating well, clear to auscultation, symmetric expansion, no distressAbdomen: soft, non-tenderGenitourinary: no bladder distention, no flank painExtremities: dry, moves all, normal capillary refill, normal temperatureMusculoskeletal: full range of motion, painless range of motionNeuro/DISPLAY ASSOCIATE: alert, oriented X 3Psychiatry: normal affect, normal judgment/insight Diagnosis, Assessment PlanFree Text A P:83-year-old female, PMHx HTN, diabetes on metformin, HLD, back pain, arthritis, vertigo for which she reportedly takes a Xanax, breast cancer left-sided mastectomy. Patient is transferred to us from [facility], patient of Dr. Hernández, and she reports chest pressure, burning sensation in her throat, sensation of nausea which started a few weeks ago after having a GI illness with vomiting. Patient was evaluated at [facility] for reports of chest pain, and findings of normal EKG, troponins within normal limits, BNP elevated at 1397, UA negative, chest x-ray stable, echocardiogram done with findings of severe aortic stenosis patient referred to us for TAVR evaluation. Patient reports cardiac cath done at [facility], however, we have no report of cardiac cath [...] and he agrees with plan for TAVR.-TAVR obqd-qn-Krbzdmvios ykiecbj-Icvtlqafbxfx-ovhhx restriction-Resume prior hospital meds 07/27/2023TAVR eval-Pending CT zcrmm-Yblozqksxuxz-gxdzm restrictionLeukocytosis, afebrile, UA 1+ leukocyte Estrace. Urine [...] Echo done. Continue supportive care at 0933 at 1725 RPT #:[id number] OF REPORTPRProgress nncm3636-11-63H35:30:00G.JPCV87679788-5479WAPhniv able for patient stxmSBZKDKAJYOGGDB4452-79-99I92:34:08 [facility] 2023-08-01 09:29:00 [id number] QMd8cJfRE+l133gOQV+wkXPQfUR4X Xi4E/7kOletTGyspYze6n1JroQs0400-67-41H80:29:79129 0-0026 [place] [address] PATIENT NAME: EVELYN GIBSON ADMIT DATE: 07/26/23ACCOUNT NO: [id number] ROOM NO: [facility] AGE: 83 REPORT TYPE: eECHOCARDIOGRAM REPORT SEX: F ADMITTING PHYSICIAN:Apolinar Rankin MD ATTENDING PHYSICIAN:Apolinar Rankin MD *[place], [place] [address]Phone: Yty: [phone] Transthoracic Echocardiogram Patient: Gareth Gibson Date: 07/31/2023 BP: 117 / 57 [id number] 1940 Age: 83 Height: 61 in / 154.9 cmAccession#: [id number] Gender: F Weight: 180.6 lb / 82.1 kgBMI/BSA: 34.2 kg/m 2 / 1.92 m 2 *Ordering Physician: * Kameron Degroot NP *Interpreting Physician: * Parmjit Houser MD*Bridge Crane Operator: * Katie Heredia [facility] Indications: S/P TAVR. Study data: Transthoracic echocardiogram. Procedure: Transthoracicechocardiography was performed. Images were obtained using a eTect cardiacultrasound machine. Image quality was good. Complete 2D, completespectral Doppler, and color Doppler. Location: U Patient status:Inpatient. Patient room number: 3301. Study status: STELLA. Findings Left ventricle: The cavity size is normal. Wall thickness is moderatelyincreased. Systolic function is normal. The estimated ejection fractionis 55-60%. Wall motion is normal; there are no regional wall motionabnormalities. Doppler parameters are consistent with abnormal leftventricular relaxation (grade 1 diastolic dysfunction).Right ventricle: The cavity size is normal. Systolic function isPATIENT NAME: EVELYN GIBSON normal.Left atrium: The atrium is normal in size.Right atrium: The atrium is normal in size.Aorta: [...] cava: The vessel is normal in size. The respirophasicdiameter changes are in the normal range (= 50%). Measurements Left ventricle Value 07/30/2023 Ref ENID, [...] - 0.9 IVS/PW, ED 0.96 1.05 ----PATIENT NAME: EVELYN GIBSON EF 62 % 56 54 - 74 E', lat -6.0 cm/sec [...] 2) 3 ---- SV/bsa 32 ml/m 2 48 ---- Ventricular septum Value 07/30/2023 Ref IVS, ED 1.5 cm 1.3 0.6 - 0.9 Right ventricle Value 07/30/2023 Ref ENID, LAX 2.9 cm 2.2 ---- TAPSE, MM 2.4 cm 1.7 - 3.1 Left atrium Value 07/30/2023 Ref AP dim, ES 3.80 cm 2.70 - 3.80 Vol/bsa, 25 ml/m 2 30 11 - ES, 1-p 40 A4C Vol, ES, 60 ml 72 ---- 2-p [...] 68.1 ---- S Peak grad, 14.9 mm Hg 107.1 ---- S LVOT/AV, 0.54 0.22 ---- [...] ---- ratio Pulmonic valve Value 07/30/2023 Ref SD v, ED 2.38 m/sec 0.62 ---- SD grad, 23 mm Hg ---- ED Aortic root Value 07/30/2023 Ref Root diam 3.6 cm <4.1 Conclusions Summary: 1. Left ventricle: The cavity [...] annulus is moderately to severely calcified. Prepared and electronically signed byPATIENT NAME: CAITLYN GIBSONNDA Parmjit Houser MD08/01/2023 09:29 at 0929 PATIENT NAME: EVELYN GIBSON :29:0 0G.[id number] for patient xklyKQANQPCGYZLWWI6622-77-37A25:29:58 [facility] 2023-08-01 09:27:00 [id number]+97dc nhgid20ouatZNhm5NA9K76HWYHqNK nAnbakMHTcHb8UpwltG1wAgOFCR0416-75-34R60:27:00 [facility] ([facility])EP Consultation NoteREPORT#:[id number] REPORT STATUS: SignedREPORT INITIALIZATION DATE:08/01/23 TIME: 926 PATIENT: EVELYN GIBSON UNIT #: [id number]#: [id number] [address] AGE: 83 SEX: F ATTEND: Apolinar Rankin [facility] AUTHOR: Roberto Sahni NPREPT SERVICE DT/TIME: 08/01/23926* ALL edits or amendments must be made on the electronic/computer document * History of Present IllnessRequesting clinician: Dr. Adkins for consult:AnticoagulationChief complaint:Palpitations, shortness of [...] (From BENADRYL ALLERGY) (NAUSEA/VOMITING 07/26/23) Review of SystemsCardiovascular:Denies: chest pain, BALBUENA (dyspnea on exertion), edema, orthopnea, palpitations, parox nocturnal dyspnea, other. ObjectiveVS/I OLast Documented: Result Date Time Temp 36.6 08/01 1214 Pulse Ox 99 08/01 1100 B/P 108/54 08/01 1100 B/P Mean [...] pulses = bilaterally, normal heart sounds, systolic murmur grade 3/6 Respiratory: clear to auscultation, no distressAbdomen: soft, non-tenderExtremities: dry, moves allMusculoskeletal: full range of motionNeuro/DISPLAY ASSOCIATE: alert, oriented X 3Skin: dry, intactTelemetry Interpretation:Sinus rhythm Diagnosis, Assessment PlanFree Text A P:1. Paroxysmal Atrial Fibrillation with RVRThe patient is currently sinus rhythm and is on amiodarone.Amiodarone drip can be completed as she is PO dosing along with a beta woody.Echocardiogram reviewed, left atrium is not dilated.Her Lau6enwo score is 5 and will need emt intermediate anticoagulation.HASBLEd score is 2 so she is in the moderate range but no high.We would recommend Eliquis along with plavix given recent TAVR valve implant.Anticoagulation discussed with Cardiology.Patient did mention a mechanical fall one time early this year but no recurrent falls.Discussed risks/benefits/alternatives and patient agrees with anticoagulation. 2. Severe Aortic StenosisS/p TAVR procedure, management by CTS/Cardiology.Recovering.TRG7UK2-UDFh Score CGR2ZO7-YWWh Score Response Value CHF: No 0 HTN: Yes 1 age greater than 75 years: Yes 2 age between 65 and 74 yrs: No 0 hx stroke, TIA, or TE: No 0 vascular disease: No 0 diabetes mellitus: Yes 1 female: Yes 1 Total 5 HAS-BLED Score HAS-BLED Score Response Value uncontrolled HTN-SBP>160 No 0 abn renal fxn/creat>=2.6 No 0 abnormal liver function: No 0 age 65 yrs or greater: Yes 1 hx of stroke: No 0 bleeding: No 0 labile INR: No 0 use of drugs w/bleed risk: Antiplatelet/ASA 325mg 1 excess ETOH:>8drinks/wk No 0 Total 2 Plan discussed with: patient at 1409 at 2100 RPT #:[id number] OF REPORTQJJgtulrtofpil9669-72-48N53:27:00G.PDOC2 [id number] for patient tpgaBUAYFNKIQNVZQK1310-49-28E78:10:09 [facility] 2023-08-01 08:22:00 [id number] v33ZruIE4SV6cmSc2iPytaYPcGAF4 yG6qDGBc9P4QWy72HN9rVwdQfMx2629-91-14A11:22:00 [facility] HospitalCard[facility] Progress NoteREPORT#:[id number] REPORT STATUS: SignedREPORT INITIALIZATION DATE:08/01/23 TIME: 821 PATIENT: EVELYN GIBSON UNIT #: [id number]#: [id number] [address] AGE: 83 SEX: F ATTEND: Apolinar Rankin AUTHOR: Tabitha HerringPREPT SERVICE DT/TIME: 08/01/23821* ALL edits or amendments must be made on the electronic/computer document * SubjectiveComments:recurrent afib RVR, LBBB. Anxious. Objective GeneralVS/I O:24 hour I O ending at 0700: 08/01 0700 07/31 1900 Intake Total 388.00 633.00 Output Total 600 1100 Balance -212.00 -467.00 Intake, IV 188.00 358.00 Intake, Oral 200 275 Output, Urine 600 1100 Vital Signs: Date Time Temp Pulse Resp B/P B/P Pulse O2 O2 Flow FiO2 Mean Ox Delivery Rate 08/01 0810 36.4 08/01 0800 130 113/75 90 86 08/01 0701 60 15 101/49 71 97 08/01 0600 63 14 101/49 70 98 08/01 0533 36.6 08/01 0500 86 16 100/51 72 94 08/01 0401 92 17 110/56 76 90 08/01 0301 81 27 156/67 97 98 08/01 0200 59 14 112/53 77 98 08/01 0100 58 14 105/51 74 98 08/01 0001 62 [...] 79 99 07/31 1033 66 18 99 07/31 1000 75 19 112/54 78 99 07/31 0900 80 17 110/55 76 98 07/31 0845 88 16 130/62 89 97 07/31 0830 114 19 136/61 88 93 PATIENT WEIGHT: Weight (lb): 190Weight (oz): 11.2Weight (kg): 86.500 Medications:Active Meds + DC'd Last 24 HrsAmiodarone HCl (CORDARONE) 200 MG BID 9A 5P PO Enoxaparin Sodium (lovENOX) 90 MG ONCE ONE SUBQ (DC) Amiodarone HCl (AMIODARONE HCL) 450 MG ASDIR [...] assessment: irregularly irregular, tachycardia, systolic murmur grade 3/6 Respiratory: decreased breath sounds, no distressAbdomen: softGenitourinary: no flank pain, no urinary catheterLower extremity: LE assessment: no edemaNeuro/DISPLAY ASSOCIATE: alert, oriented X 3Skin: dry, intact, normal colorPsychiatry: normal affect, normal mood ResultsFindings/Data:Laboratory Tests 08/01 08/01 07/31 07/31 0720 0348 1606 1106 Chemistry Sodium (134 - [...] Hgb (11.0 - 15.0 g/dL) 12.2 Hct (33.0 - 45.0 %) 37.9 MCV (81.0 - 99.0 fL) 89.8 MCH (27.0 - 33.0 pg) 28.9 MCHC (33.0 - 37.0 g/dL) 32.2 L RDW (11.5 - 14.5 %) 13.3 Plt Count (150 - 400 x10 3/uL) 218 MPV (7.0 - 9.0 fL) 12.0 H Neut % (Auto) (56.0 - 77.0 %) 75.3 Lymph % (Auto) (14.0 - 32.0 %) 11.3 L [place]raz[place] % (Auto) (4.8 - 9.0 %) 11.3 H Eos % (Auto) (0.3 - 3.7 %) 1.2 Baso % (Auto) (0.0 - 2.0 %) 0.3 Neut # (Auto) (2.0 - 7.6 x10 3/uL) 10.32 H Lymph # (Auto) (1.0 - 3.8 x10 3/uL) 1.55 [place]razos # (Auto) (0.1 - 0.8 x10 3/uL) [...] BID* Lovenox 1 mg/kg x1 dose today* VYF5WX0-DDPl score 3* EP consult * recurrent afib RVR, rebolus amio, up amio gtt to 1 mg Get PT/OTMobilize OOB Keep in CCU at 0910 at 1441 RPT #:[id number] OF REPORTPRProgress tmic0080-32-22A30:22:00G.IJIH95808616-0141DKLhqrt able for patient jyfbZYYRGFXTQKOUAE3451-84-55Z10:10:14 [facility] 2023-07-31 11:42:00 [id number]/c a9leRhXu6yT3x5xmlr7/DziraK1Kl EVBaC0yZAtSNjbzB5kX89+Gdxp76440-87-37O33:42:00 [facility] ([facility])Structural Heart Post ProgressREPORT#:[id number] REPORT STATUS: SignedREPORT INITIALIZATION DATE:07/31/23 TIME: 1142 PATIENT: EVELYN GIBSON UNIT #: [id number]#: [id number] [address] AGE: 83 SEX: F ATTEND: Apolinar Rankin [facility] AUTHOR: Roberto Sahni NPREPT SERVICE DT/TIME: 07/31/23 1142* ALL edits or amendments must be made on the electronic/computer document * History of Present Illness HPIReferring local city driver:Dr. Hernández/CorrinaProjosi date: 07/30/23TAVR procedure: Valve type: Bliss Ventura [...] started on amiodarone. HistorySmoking status for patients 13 years old or older: Former Smoker Medication/Allergy-Vaccine HxAllergies:Coded Allergies:diphenhydramine (From BENADRYL ALLERGY) (NAUSEA/VOMITING 07/26/23) Objective Vital SignsNursing documented vitals:Last Documented: Result Date Time Pulse Ox 99 07/31 1101 B/P 120/55 07/31 1101 B/P Mean 79 07/31 1101 Pulse 67 07/31 1101 Resp 17 07/31 1101 O2 Delivery Room air 07/30 2130 Temp 36.6 07/30 2000 Physical ExamMedications:Active Meds [...] MG PACU ONCE PO (DC) Simvastatin (SIMVASTATIN) 10 MG 2100 PO Aspirin [...] painless range of motion, straight leg raise negNeuro/DISPLAY ASSOCIATE: alert, oriented X 3, CNII-XII intact, NL cerebellar functionSkin: dry Diagnosis, Assessment Plan Diagnosis, Assessment PlanFree Text A P:1. Severe Symptomatic Aortic StenosisPatient underwent successful Bliss Ventura S3 23mm Valve.Continue aspirin and plavix, but given AF uPatient was monitored, vital signs stable, labs reviewed.She did have some atrial fibrillation with RVR today but has since been started on amiodarone and converted to sinus rhythm.Echocardiogram reviewed by Cardiology and CTS is following. 2. Atrial Fibrillation with RVROn amiodarone and currently in sinus rhythm.Continue amiodarone.Cardiology is managing. 3. HypertensionBlood pressures are reasonable. LRQ6UG2-BYLc Score: RKZ8JC0-JWHs Score: Response Value CHF: Yes 1 HTN: Yes 1 age greater than 75 years: Yes 2 age between 65 and 74 yrs: No 0 hx stroke, TIA, or TE: No 0 vascular disease: No 0 diabetes mellitus: Yes 1 female: Yes 1 Total 6 at 1202 RPT #:[id number] OF REPORTPRProgress aggh9447-16-33W44:42:00G.NGXT49512631-0904NNWvqvh able for patient lrwwDJBOISYJEFWFEV3570-57-00Y87:02:37 [facility] 2023-07-31 10:18:00 [id number] Ut47+WnydYhv7DWZgyXFIIr4MIvH1 nQFWxXKrmT/Hq+mB/Fa3h1Is4GE4428-16-39K73:18:56169 0-0125 [place] [address] PATIENT NAME: EVELYN GIBSON ADMIT DATE: 07/26/23ACCOUNT NO: [id number] ROOM NO: G.3301 AGE: 83 REPORT TYPE: eELECTROCARDIOGRAM REPORT SEX: F ADMITTING PHYSICIAN:Apolinar Rankin MD ATTENDING PHYSICIAN:Apolinar Rankin MD Order:[id number] Reason : , Test Date/Time Stamp:FriJul 31 2023 10:18:17Blood Pressure : / mmHGVent. Rate : 068 BPM Atrial Rate : 068 BPM P-R Int : 148 ms QRS Dur : 144 ms QT Int : 488 ms P-R-T Axes : 083 -03 112 degrees QTc Int : 518 ms Normal sinus rhythmLeft bundle branch blockAbnormal ECGWhen compared with ECG of 31-JUL-2023 07:31,No changesConfirmed by MD KERLINE, KORTNEY ([id number]) on 08/01/2023 5:18:36 PM Referred By: Apolinar Rankin Confirmed by:KORTNEY FRANKS MD at 1718 PATIENT NAME: EVELYN GIBSON .[id number] AVAvailable for patient whigDCQLYBDEAOYJYA7587-28-42Y64:19:01 [facility] 2023-07-31 10:10:00 [id number] nuV7WM5hRepy8x/KAPUp97aY6ov0Y ejTEyhwiWkyX5WrRTY5785xmmnJ3353-52-52H47:10:00 [facility])Cardiology Progress NoteREPORT#:[id number] REPORT STATUS: SignedREPORT INITIALIZATION DATE:07/31/23 TIME: 1010 PATIENT: EVELYN GIBSON UNIT #: [id number]#: [id number] [place] [facility] [place]: [birth year] AGE: 83 SEX: F ATTEND: Apolinar Rankin MDADM AUTHOR: Tabitha Herring AGACNPREPT SERVICE DT/TIME: 07/31/23 1010* ALL edits or [...] 07/31 0500 65 15 105/43 64 97 07/31 0400 63 18 109/44 65 97 07/31 [...] 72 17 101/42 62 94 07/30 1800 83 22 174/70 101 91 07/30 1700 85 23 151/66 95 98 07/30 1616 68 18 137/63 90 99 07/30 1600 36.6 07/30 1600 61 19 160/74 106 100 07/30 1500 77 17 121/50 74 07/30 1500 67 20 145/64 92 98 07/30 1400 36.4 07/30 1400 66 15 127/60 87 99 07/30 1349 68 19 133/60 87 PATIENT WEIGHT: Weight (lb): 190Weight (oz): 11.2Weight [...] MG PACU ONCE PO (DC) Simvastatin (SIMVASTATIN) 10 MG 2100 PO Aspirin [...] ASDIR IV Status post:TAVR Physical ExamGeneral appearance: lethargic, alert, awake, oriented, no acute distressHead/Eyes: atraumaticENT: moist mucosal membranesNeck: full range of motionCardiovascular: CV assessment: regular rate and rhythm, systolic murmur grade 3/6 Murmur assessment:systolic heart murmurRespiratory: clear to auscultationAbdomen: softGenitourinary: no flank pain, no urinary catheterLower extremity: LE assessment: no edemaNeuro/DISPLAY ASSOCIATE: alert, oriented X 3Skin: dry, intact, normal colorPsychiatry: normal affect, normal mood ResultsFindings/Data:Laboratory Tests 07/31 07/31 07/30 07/30 07/30 0723 0356 2032 1608 [...] Hgb (11.0 - 15.0 g/dL) 11.9 Hct (33.0 - 45.0 %) 36.0 MCV (81.0 - 99.0 fL) 87.4 MCH (27.0 - 33.0 pg) 28.9 MCHC (33.0 - 37.0 g/dL) 33.1 RDW (11.5 - 14.5 %) 13.2 Plt Count (150 - 400 x10 3/uL) 257 MPV (7.0 - 9.0 fL) 11.2 H Neut % (Auto) (56.0 - 77.0 %) 76.5 Lymph % (Auto) (14.0 - 32.0 %) 10.8 L [place] % (Auto) (4.8 - 9.0 %) 11.0 H Eos % (Auto) (0.3 - 3.7 %) 0.6 Baso % (Auto) (0.0 - 2.0 %) 0.3 Neut # (Auto) (2.0 - 7.6 x10 3/uL) 11.78 H Lymph # (Auto) (1.0 - 3.8 x10 3/uL) 1.66 [place] # (Auto) (0.1 - 0.8 x10 3/uL) [...] rev'dTelemetry Interpretation:afib then converted to sinus Scores AOF9HP8-ODZl TiqalLFJ1CC8-HXMh Score BGM7LY7-UFGe Score Response Value age greater than 75 [...] mg BID* Lovenox 1 mg/kg x1 dose* LVR7BM3-CYVm score 3 Get PT/OTMobilize OOB at 1616 at 1438 RPT #:[id number] OF REPORTPRProgress juwt3873-11-07X58:10:00G.CPLE11397950-8928XOLlwgu able for patient mblyEKFLIRODXIGRBV2060-46-63X40:17:05 [facility] 2023-07-31 08:16:00 [id number] gh7OKu/LmGzuXnrHsNw2mqeAxRMVG fkjfQhRVoVqavi3LiGfl5usoxQL1199-40-76H89:16:00 [facility] HospitalCardi[facility] ProgREPORT#:[id number] REPORT STATUS: SignedREPORT INITIALIZATION DATE:07/31/23 TIME: 815 PATIENT: EVELYN GIBSON UNIT #: [id number]#: [id number] [address] [birth year] AGE: 83 SEX: F ATTEND: Apolinar Rankin [facility] AUTHOR: Dayna Younger PhysicREPT SERVICE DT/TIME: 07/31/23815* ALL edits or amendments must be made on the electronic/computer document * GeneralPost-op: day 1Status post:TAVR Review of SystemsConstitutional:Reports: fatigue. Skin:Denies: bruising, contusion, diaphoresis. Allergy/Immun:Denies: hives, itching, rhinorrhea. Eyes:Denies: discharge, visual loss/blurred. ENT:Denies: toothache, voice change. Respiratory:Reports: BALBUENA (dyspnea on exertion). Cardiovascular:Reports: chest pain. GI:Denies: abdominal pain, nausea, vomiting. :Denies: dysuria, flank pain. Musculoskeletal:Denies: neck pain, thoracic pain. Neuro:Denies: focal weakness, slurred speech, syncope. All systems rev neg: except as marked Objective GeneralVS/I OLast Documented: Result Date Time Pulse Ox 96 07/31 540 B/P 128/60 07/31 540 B/P Mean 86 07/31 540 Pulse 81 07/31 540 Resp 18 07/31 540 O2 Delivery Room air 07/30 2130 Temp [...] soundsRespiratory: aerating well, clear to auscultation, symmetric expansion, no distressAbdomen: soft, non-tenderGenitourinary: no bladder distention, no flank painExtremities: dry, moves all, normal capillary refill, normal temperatureMusculoskeletal: full range of motion, painless range of motionNeuro/DISPLAY ASSOCIATE: alert, oriented X 3Psychiatry: normal affect, normal judgment/insight Diagnosis, Assessment PlanFree Text A P:83-year-old female, PMHx HTN, diabetes on metformin, HLD, back pain, arthritis, vertigo for which she reportedly takes a Xanax, breast cancer left-sided mastectomy. Patient is transferred to us from [facility], patient of Dr. Hernández, and she reports chest pressure, burning sensation in her throat, sensation of nausea which started a few weeks ago after having a GI illness with vomiting. Patient was evaluated at [facility] for reports of chest pain, and findings of normal EKG, troponins within normal limits, BNP elevated at 1397, UA negative, chest x-ray stable, echocardiogram done with findings of severe aortic stenosis patient referred to us for TAVR evaluation. Patient reports cardiac cath done at [facility], however, we have no report of cardiac cath [...] and he agrees with plan for TAVR.-TAVR ofns-kt-Gzxvndncqs cnjptnj-Zdhopbmkautp-eccqs restriction-Resume prior hospital meds 07/27/2023TAVR eval-Pending CT gxjom-Ntxzccletczg-tcqta restrictionLeukocytosis, afebrile, UA 1+ leukocyte Estrace. Urine [...] Dr Rankin. at 0821 at 0610 RPT #:[id number] OF REPORTPRProgress qtvl1239-93-89A07:16:00G.IOXZ18405579-0610NKDwbeh able for patient griqRYKUBHVJACMAZJ1027-88-62L28:21:49 [facility] 2023-07-31 07:31:00 [id number] /httiqG0/lAIbGyDGSzP0Q4DBBhQc 2tJVkKhddPlWeGpPjuKe6hGeiG/2020-92-16U08:31:08167 0-0124 [place] [address] PATIENT NAME: EVELYN GIBSON ADMIT DATE: 07/26/23ACCOUNT NO: [id number] ROOM NO: G.3301 AGE: 83 REPORT TYPE: eELECTROCARDIOGRAM REPORT SEX: F ADMITTING PHYSICIAN:Apolinar Rankin MD ATTENDING PHYSICIAN:Apolinar Rankin MD Order:[id number] Reason : Post PCI Test Date/Time Stamp:FriJul 31 2023 07:31:00Blood Pressure : / mmHGVent. Rate : 112 BPM Atrial Rate : 000 BPM P-R Int : 000 ms QRS Dur : 136 ms QT Int : 382 ms P-R-T Axes : 000 -31 128 degrees QTc Int : 521 ms Atrial fibrillation with rapid ventricular responseLeft axis deviationLeft bundle branch blockAbnormal ECGWhen compared with ECG of 30-JUL-2023 09:14,No changesConfirmed by MD FRANKS GERARD ([id number]) on 08/01/2023 5:18:24 PM Referred By: Self Referred Confirmed by:KORTNEY FRANKS MD at 1718 PATIENT NAME: EVELYN GIBSON .[id number] AVAvailable for patient rvxiTWOUEVSZFCXVTV9529-81-90O01:18:41 [facility] 2023-07-30 21:09:00 [id number] PBh1VAx1Zwy3Y9GQ1wVb7XBCOIz5P M6M6usV5a5rJd6ORwlDh+m9hA4q0532-74-44E74:09:00 [facility] HospitalDT Operative NoteREPORT#:[id number] REPORT STATUS: SignedREPORT INITIALIZATION DATE:07/30/23 TIME: 2108 PATIENT: EVELYN GIBSON UNIT #: [id number]#: [id number] [address]OB: [birth year] AGE: 83 SEX: F ATTEND: Apolinar [...] 5. Completion angiogram Surgeon: Toño Rankin MD Mill Tender: MD Lissa Ruiz MD Anaesthesia: MAC Estimated blood loss: 20 cc Indication: Ms Gibson is a pleasant 83-year-old, female with severe symptomaticaortic stenosis. She was investigated and was found to be a suitable candidate for TAVR. After do preop counseling she was brought to the hybrid room today for TAVR Findings: 1. Severe calcification of aortic valve 2. The delivery system was passed without difficulty into the left ventricular outflow tract for deployment. 3. A 23 mm Ventura S3 Ultra valve was required 4. Post replacement TTE revealed no paravalvular leak 5. Patient had good Doppler signals in both lower extremities following the procedure. Procedure in detail: Further details will be dictated by Dr. Garcia as he was the land acquisition manager. The patient was brought into the hybrid room. A timeout procedure was performed which confirmed the patient's name medical record number and the procedure to be performed. The patient was placed supine on the operating table.The chest, abdomen, and groins were prepped and draped in standard surgical fashion. 1% lidocaine was used to anesthetize the area over the right femoral artery, and left femoral artery and vein. After placement of appropriate sheath patient was heparinized, to maintain and a ACT more than 250 second. An aortic root shot was performed, noting the optimal angle for deployment of the valve. This confirmed the position already determined by CT angiogram 3D reconstruction. Subsequently, the 23 mm Bliss Ventura S3 Ultra transcatheter valve was placed into the sheath in the [...] aortic insufficiency. A pigtail catheter was placed into the left ventricle and simultaneous LV and aortic pressures wereobtained. The mean gradient was minimal. Subsequently, the sheaths were removed, the right common femoral artery was closed with a ProGlide device x 2 . Sterile dressings were applied. I was present as co-surgeon in conjunction with Dr Garcia and Dr. Crum. Dr. Garcia will dictate his portion in detail. The patient tolerated the procedure well and was taken to the coronary care unit in stable condition. Sponge, needle and instrument count were correct. at 2113 [facility] #:[id number] OF REPORTOPOperative ekrmek6807-89-47R41:09:00G.XKEA50272614-1260EEHfd ilable for patient ogxoCPMKJIUSUOEWMN1901-37-27W73:13:50 [facility] 2023-07-30 18:29:00 [id number] 2N9KC+L3pY8uYcCUoUI4pnF9RDzPw dX2iMAeQ7MEeQ5hJvi0YAwp6Th08239-08-12H01:29:12957 1-0001 [place] [address] PATIENT NAME: EVELYN GIBSON ADMIT DATE: 07/26/23ACCOUNT NO: [id number] [place] [facility] [place] 83 REPORT TYPE: CARDIAC CATHETERIZATION REPORT SEX: F ADMITTING PHYSICIAN:Apolinar Rankin MD ATTENDING PHYSICIAN:Apolinar Rankin MD PROCEDURE DATE: 07/30/2023 INDICATION: Symptomatic severe aortic stenosis. CLINICAL HISTORY: A very pleasant 83-year-old female patient transferred from [place] with symptomatic critical aortic stenosis with heavy exertional angina with minimal exertion, shortness of breath and decompensated CHF. She was found to have a mean gradient of 75 mmHg by echocardiogram. The patient wasoffered the option of transcatheter aortic valve replacement. She understood the risks, indications and benefits as well as alternatives of the procedure including but not limited to risk of , [place], CVA, vascular and renal injury and was willing to proceed. PROCEDURES:1. A 14-English right femoral arterial access.2. Status post transcatheter aortic valve replacement with a 23-mm Bliss Ventura Ultra valve with excellent echocardiographic and angiographic results.3. An 8-English left femoral venous access.4. Status post temporary venous pacemaker.5. A 5-English left femoral arterial access.6. Status post ProGlide closure of all arteriotomies and venotomies with excellent hemostasis. COMPLICATIONS: None. ESTIMATED BLOOD LOSS: Less than 10 mL. ANESTHESIA: MAC. OPERATORS:1. Rowdy Crum MD.2. Parmjit Houser MD CT SURGEON: Cat Rankin MD PROCEDURE IN DETAIL: Both groins were prepped and draped in the usual sterile fashion. Local anesthesia was administered. A 5-English sheath was placed in the left femoral artery using ultrasound-guided access. An 8-English sheath was placed in the left femoral vein and then a 6-English sheath was placed in the right femoral artery. Two ProGlide sutures were deployed in the form of the Preclosure and then the 14-English Bliss sheath was advanced over a J [...] had difficulty even allowing the pigtail to cross , sowe went with an 18-mm Bard balloon and we deployed. Subsequently, we advanced the device, the Bliss Ventura valve. We did appropriate alignment in the descending aorta. We crossed with rapid ventricular pacing. We deployed the valve. We had excellent angiographic results. No significant paravalvular leak. Echocardiography showed no pericardial effusion and no significant paravalvular leak. Closed the groin with ProGlide x4. We had excellent hemostasis. No complications. No protamine was given for the patient. The patient woke up. No focal neurological deficits. Dictated By: Rowdy Crum MD Date Dictated: 07/30/2023 18:29:23Date Transcribed: 07/30/2023 22:37:57LANDON/JULIA/Judy #: [id number] ID: [id number] by Rowdy Crum MD On 08/05/2023 11:15:46 PM at 1115 PATIENT NAME: EVELYN GIBSON nazq0436-25-58A47:37:00G.[id number] ble for patient vtyxDXSRPVHEXCJLAO8860-48-22Q91:16:24 [facility] 2023-07-30 18:12:00 [id number] mfFCDtKlgS1Gkp2stdiSJBm2HJR0E 0nuIkwnorzJ+uWHWpinG3uuvHtV5919-63-58S88:12:00 [facility] HospitalCardiology Progress NoteREPORT#:[id number] REPORT STATUS: SignedREPORT INITIALIZATION DATE:07/30/23 TIME: 1811 PATIENT: EVELYN GIBSON UNIT #: [id number]#: [id number] [address] AGE: 83 SEX: F ATTEND: [...] 61 14 115/58 0.0 94 Room air 11/08 0200 58 25 07/29 2337 58 23 109/53 77 07/29 2337 97.9 58 14 119/57 0.0 94 Room air 07/293 64 23 119/57 82 07/29 2000 64 18 07/29 1945 55 15 07/29 1900 59 15 07/29 1833 66 16 137/64 92 07/29 1833 98.1 64 14 137/64 0.0 93 Room air PATIENT WEIGHT: Weight (lb): 190Weight (oz): 11.2Weight (kg): 86.500 Medications:Active Meds + DC'd Last 24 HrsMupirocin (BACTROBAN 2% 22 GM OINTMENT) 1 APPLIC [...] (DC) Midazolam HCl (VERSED) 0 .STK-MED ONE .ROUTE (DC) Propofol (DIPRIVAN 1,000MG/100ML) 100 ML .STK-MED ONE IV (DC) Dexmedetomidine HCl (PRECEDEX) 0 .STK-MED ONE IV (DC) Norepinephrine Bitartrate (LEVOPHED BITARTATE) 0 .STK-MED ONE IV (DC) Etomidate (AMIDATE) 0 .STK-MED ONE IV (DC) Fentanyl Citrate (SUBLIMAZE) 0 .STK-MED ONE .ROUTE (DC) Rocuronium [place] (ZEMURON) 0 .STK-MED ONE IV (DC) Cefazolin [...] no bleeding Right groin site: intact, no bleedingNeuro/DISPLAY ASSOCIATE: alert, oriented X 3Skin: dry, intact, normal colorPsychiatry: anxious ResultsFindings/Data:Laboratory Tests 07/30 07/30 07/30 07/30 07/30 1608 1230 0915 0146 0146 Chemistry Sodium (134 - 147 mEq/L) 129 L Potassium (3.4 - 5.0 mEq/L) 4.0 Chloride (100 - 108 mEq/L) 94 L Carbon Dioxide (21 - 33 mEq/l) 30 Anion Gap (0 - 20) 9 BUN (7 - 25 mg/dL) 19 Creatinine (0.6 - 1.3 mg/dL) 0.9 Glomerular Filtr Rate (70 - 80) 62.7 L Glucose (77 - 141 mg/dL) 79 POC Glucose (70 - 110 MG/DL) 79 88 108 Calcium (8.0 - 10.5 mg/dL) 9.1 Magnesium (1.6 - 2.6 mg/dL) 1.97 07/29 2027 Chemistry POC Glucose (70 - 110 MG/DL) 99 Laboratory Tests 07/30 07/30 07/30 07/29 0832 0813 0146 2051 Coagulation INR (0.8 - 1.2) 1.0 1.1 PTT (Starr) (25.0 - 39.5 Seconds) 40.3 H PT Patient/Control Mix (9.3 - 12.9 SECONDS) 11.5 11.8 Activated Coag Time (74 - 137 SEC) 276 H 287 H Laboratory Tests 07/30 146 Hematology WBC (4.5 - 11.0 x10 3/uL) 11.0 RBC (3.54 - 5.02 x10 6/uL) 4.54 Hgb (11.0 - 15.0 g/dL) 13.1 Hct (33.0 - 45.0 %) 40.0 MCV (81.0 - 99.0 fL) 88.1 MCH (27.0 - 33.0 pg) 28.9 MCHC (33.0 - 37.0 g/dL) 32.8 L RDW (11.5 - 14.5 %) 13.1 Plt Count (150 - 400 x10 3/uL) 258 MPV (7.0 - 9.0 fL) 11.7 H Neut % (Auto) (56.0 - 77.0 %) 69.8 Lymph % (Auto) (14.0 - 32.0 %) 17.5 [place] % (Auto) (4.8 - 9.0 %) 11.1 H Eos % (Auto) (0.3 - 3.7 %) 0.8 Baso % (Auto) (0.0 - 2.0 %) 0.3 Neut # (Auto) (2.0 - 7.6 x10 3/uL) 7.63 H Lymph # (Auto) (1.0 - 3.8 x10 3/uL) 1.92 [place] # (Auto) (0.1 - 0.8 x10 3/uL) 1.22 H Eos # (Auto) (0.0 - 0.2 x10 3/uL) 0.09 Baso # (Auto) (0.0 - 0.2 x10 3/uL) 0.03 Abs Immat Gran (auto) (0.00 - 0.03 x10 3/uL) 0.06 H Immature Gran % (0.0 [...] Cardiomediastinalsilhouette appears unremarkable. Osseous structures appearunremarkable.Impression By: Genesis Goldstein M.D. Telemetry Interpretation:sinus with LBBB Diagnosis, [...] # Hyponatremia* NA 129 at 1419 RPT #:[id number] OF REPORTPRProgress kerc5830-65-10F13:12:00G.FCXS19262310-6556CFJskeu able for patient jwnzSGDXXGWNXMMSDS3579-59-36M77:19:49 [facility] 2023-07-30 18:07:00 [id number] Hkhbo/U/f5F6IiIHB+31RQCmVAmeA UUHpKffQzyiR+UGPaITMrc9PiJW8097-87-37E52:07:39453 [address] [place] [address] PATIENT NAME: EVELYN GIBSON ADMIT DATE: 07/26/23ACCOUNT NO: [id number] ROOM NO: G.330 AGE: 83 REPORT TYPE: eECHOCARDIOGRAM REPORT SEX: F ADMITTING PHYSICIAN:Apolinar Rankin MD ATTENDING PHYSICIAN:Apolinar Rankin MD *[place], [place] [address]Phone: Pyd: [phone] Limited Transthoracic Echocardiogram Patient: Gareth Gibson Date: 07/30/2023 BP: 127 / 60 Location: COCCLURN: [id number] : 1940 Age: 83 Height: 62 in / 157.5 [facility] Centeression#: [id number] Gender: F Weight: 180.6 lb / 82.1 kgBMI/BSA: 33.1 kg/m 2 / 1.83 m 2 *Ordering Physician: * Parmjit Houser MD *Interpreting Physician: * Parmjit Houser MD*Bridge Crane Operator: * Katie Heredia [facility] Indications: TAVR. Study data: Transthoracic echocardiogram, limited study. Procedure:Transthoracic echocardiography was performed. Images were obtained usinga eTect cardiac ultrasound machine. Image quality was good. Limited 2D andlimited spectral Doppler. Location: Catheterization laboratory. Findings Left ventricle: Wall thickness is increased. Systolic function isnormal.Left atrium: The atrium is dilated.Aortic valve:Pre TAVR: The LVOT diameter is 2 cm. The peak gradient is 107.1 mmHg.The mean gradient is 68.1 mmHg. The LVOT VTI is 28.8 cm. The AV VTI is132.6 cm. The aortic valve area is 0.6 cm 2. The peak jet velocity isPATIENT NAME: EVELYN GIBSON 5.2 m/sec. There is trace aortic regurgitation. There is severe aorticstenosis.Post TAVR: The LVOT diameter is 2 cm. The peak aortic gradient is 14mmHg. The mean aortic gradient is 7 mmHg. The LVOT VTI is 24.3 cm. TheAV VTI is 35.7 cm. The aortic valve area is 2 cm 2. The peak jetvelocity is 1.9 m/sec. There is no perivalular leak.Mitral valve: The annulus is mildly to moderately calcified.Tricuspid valve: There is mild regurgitation.Pericardium: There is no pericardial effusion.Systemic veins:Inferior vena cava: The respirophasic diameter changes are in thenormal range (= 50%). Measurements Left ventricle Value 07/27/2023 Ref ENID, LAX 4.3 cm 3.5 3.8 - 5.2 ESD, LAX 3.0 cm 2.3 2.2 - 3.5 ESD/bsa, 1.7 cm/m 2 1.2 1.3 LAX - 2.1 FS, LAX 29 % 33 27 - 45 ESD/bsa 2.8 cm/m 2 3.0 ---- major ax, A4C ENID/bsa 2.8 cm/m 2 3.0 ---- minor ax, A4C ENID major 6.0 cm 6.5 ---- ax, [...] ---- Mean nadine, S 0.74 m/sec 0.75 ---- VTI, S 28.8 cm 23.3 ---- Peak grad, 5 mm Hg 4 ---- SPATIENT NAME: EVELYN GIBSON Mean grad, 2 mm Hg 2 ---- S SV 88 ml 67 ---- Qs 5.47 L/min 4.23 ---- Qs/bsa 3 L/(min-m 2) 2.3 ---- SV/bsa 48 ml/m 2 35 ---- Ventricular septum Value 07/27/2023 Ref IVS, ED 1.3 cm 1.0 0.6 - 0.9 Right ventricle Value 07/27/2023 Ref ENID, LAX 2.2 cm ---- Pressure, S 45 mm Hg 40 ---- Left atrium Value 07/27/2023 Ref Vol/bsa, 30 ml/m 2 24 11 - ES, 1-p A4C 40 Vol, ES, 72 ml 61 [...] 68.1 mm Hg 73.2 ---- S Peak grad, 107.1 mm Hg 118.5 ---- S LVOT/AV, 0.22 0.2 ---- VTI ratio RISHABH, VTI 0.71 cm 2 0.54 ---- LVOT/AV, 0.21 0.18 ---- Vpeak ratio RISHABH, Vmax 0.64 cm 2 0.53 ---- Pulmonic valve Value 07/27/2023 Ref SD v, ED 0.62 m/sec 0.64 ---- Tricuspid [...] Estimated 10 mm Hg 8 ---- CVP Conclusions Summary: 1. Left ventricle: Wall thickness is increased. Systolic function is normal.2. Left atrium: The atrium is dilated.3. Mitral valve: The annulus is mildly to moderately calcified. Prepared and electronically signed by Parmjit Houser MD07/30/2023 18:07 at 1807 PATIENT NAME: EVELYN GIBSON :07:0 0G.[id number] for patient irlxBSTSNKBJIHILJM1317-31-21A32:08:22 [facility] 2023-07-30 16:08:00 [id number] xulp1ovD8KFoehaiJInqBevZERGgC BjXlZA8KB9KK9x1WDYEl2+xLr6C1651-98-41Y44:08:00 [facility] HospitalClinical NoteREPORT#:[id number] REPORT STATUS: SignedREPORT INITIALIZATION DATE:07/30/23 TIME: 1608 PATIENT: EVELYN GIBSON UNIT #: [id number]#: [id number] ROOM[facility]BED: [facility]-1DOB: [birth year] AGE: 83 SEX: F ATTEND: Apolinar Rankin [facility] AUTHOR: Georgette Craven NPREPT SERVICE DT/TIME: 07/30/23 1608* ALL edits or amendments must be made on the electronic/computer document * Clinical NoteNote:Pt arrived to CCU in stable condition. Vital signs stable. Not requiring any drips. Continue to monitor and we will follow peripherially and will be available should any critical care needs arise. Continue supportive care. Full code. Awake/alert and able to make needs known. [id number] at 1610 RPT #:[id number] OF REPORTCLClinical bkfv6517-84-63Z98:08:00G.IEAY50982980-0434SMVkreo able for patient wapcBFOIDMNDYYDYCD1671-79-25B12:10:29 [facility] 2023-07-30 09:14:00 [id number] uoaDKSekyUz3sMt1igkqq7dmAGnaL NRjsqdcqVOgMd1NBIjnZ4o4BzBx8773-09-18U97:14:85165 8-[address] [place] [address] PATIENT NAME: EVELYN GIBSON ADMIT DATE: 07/26/23ACCOUNT NO: [id number] ROOM NO: [facility] AGE: 83 REPORT TYPE: eELECTROCARDIOGRAM REPORT SEX: F ADMITTING PHYSICIAN:Apolinar Rankin MD ATTENDING PHYSICIAN:Apolinar Rankin MD Order:[id number] Reason : S/PTAVR Test Date/Time Stamp:FriJul 30 2023 09:14:41Blood Pressure : / mmHGVent. Rate : 078 BPM Atrial Rate : 078 BPM P-R Int : 156 ms QRS Dur : 142 ms QT Int : 478 ms P-R-T Axes : 077 -01 112 degrees QTc Int : 544 ms Normal sinus rhythmLeft bundle branch blockAbnormal ECGWhen compared with ECG of 26-JUL-2023 08:28,No changesConfirmed by MD KERLINE, KORTNEY ([id number]) on 07/30/2023 9:31:28 PM Referred By: Apolinar Rankin Confirmed by:KORTNEY FRANKS MD at 2131 PATIENT NAME: EVELYN GIBSON .[id number] AVAvailable for patient pzrxCERYTILGSKZNBQ6282-48-55T19:33:04 [facility] 2023-07-29 11:52:00 [id number] F0SVmpMOsJXJyks7Y7dwyBfMCZXxV C/1PllyyWf7nXK10SdDLrrJzIeI7695-84-70E36:52:00 [facility] HospitalCardiology Progress NoteREPORT#:[id number] REPORT STATUS: SignedREPORT INITIALIZATION DATE:07/29/23 TIME: 1151 PATIENT: EVELYN GIBSON UNIT #: [id number]#: [id number] [address] AGE: 83 SEX: F ATTEND: Apolinar Rankin MDA AUTHOR: Tabitha Herring SERVICE DT/TIME: 07/29/23 1152* ALL edits or [...] Flow FiO2 Mean Ox Delivery Rate 07/29 735 36.5 69 19 124/59 0.0 94 07/29 0318 36.6 72 13 170/68 0.0 93 Room air 07/28 2313 36.4 63 13 118/58 0.0 95 Room air 07/28 1822 36.5 74 13 117/58 0.0 95 Room air 07/28 1651 36.9 62 16 107/60 0.0 99 Room air PATIENT WEIGHT: Weight (lb): 181Weight (oz): 14.1Weight (kg): 82.500 Medications:Active Meds + DC'd Last 24 HrsIopamidol (ISOVUE-370 100ML) 100 ML .STK-MED ONE IV (DC) Simvastatin (SIMVASTATIN) 10 MG 2100 PO [...] no urinary catheterLower extremity: LE assessment: no edemaNeuro/DISPLAY ASSOCIATE: alert, oriented X 3Skin: dry, intact, normal colorPsychiatry: anxious ResultsFindings/Data:Laboratory Tests 07/29 07/29 07/28 07/28 0752 0213 2038 1647 Chemistry Sodium (134 - 147 mEq/L) 129 [...] 141 mg/dL) 93 POC Glucose (70 - 110 MG/DL) 109 121 H 116 H Calcium (8.0 - 10.5 mg/dL) 9.0 Magnesium (1.6 - 2.6 mg/dL) 2.08 Laboratory Tests 07/29 0213 Hematology WBC (4.5 - 11.0 x10 3/uL) 12.3 H RBC (3.54 - 5.02 x10 6/uL) 4.35 Hgb (11.0 - 15.0 g/dL) 12.8 Hct (33.0 - 45.0 %) 38.3 MCV (81.0 - 99.0 fL) 88.0 MCH (27.0 - 33.0 pg) 29.4 MCHC (33.0 - 37.0 g/dL) 33.4 RDW (11.5 - 14.5 %) 13.1 Plt Count (150 - 400 x10 3/uL) 254 MPV (7.0 - 9.0 fL) 11.6 H Neut % (Auto) (56.0 - 77.0 %) 70.8 Lymph % (Auto) (14.0 - 32.0 %) 16.5 [place] % (Auto) (4.8 - 9.0 %) 11.4 H Eos % (Auto) (0.3 - 3.7 %) 0.6 Baso % (Auto) (0.0 - 2.0 %) 0.3 Neut # (Auto) (2.0 - 7.6 x10 3/uL) 8.70 H Lymph # (Auto) (1.0 - 3.8 x10 3/uL) 2.03 [place] # (Auto) (0.1 - 0.8 x10 3/uL) 1.40 H Eos # (Auto) (0.0 - 0.2 x10 3/uL) 0.07 Baso # (Auto) (0.0 - 0.2 x10 3/uL) 0.04 Abs Immat Gran (auto) (0.00 - 0.03 x10 3/uL) 0.05 H Immature Gran % (0.0 - 2.0 %) 0.4 Nucleated RBC % (0 - 0 %) 0.0 Nucleated RBCs # (Man) (0.0 - 0.1 x10 3/uL) 0.00 Laboratory Tests 07/29 0213 Chemistry Magnesium (1.6 - 2.6 mg/dL) 2.08 Results: labs reviewed, vital signs reviewed, rhythm personally rev'dTelemetry Interpretation:sinus rhythm Diagnosis, Assessment PlanPlan discussed with: patient, collaborating MD, nurse Free Text DxA P NotesFree Text DxA P Notes:# Symptomatic severe aortic stenosis * Echo: LVEF 60-64% with critical . Peak velocity 5.44, mean PG 73.21, mag PG 118.46, RISHABH VTI 0.6, RISAHBH 0.8* TAVR CTs done* Cath done at outside facility- cath CD in chart* Case discussed at TAVR conference today* CTS following* TAVR tomorrow # Nausea* antiemetic x1 then PRN # Hyponatremia* NA [address] Houser. at 1755 at 1427 RPT #:[id number] OF REPORTPRProgress jyyy8820-06-83D00:52:00G.JCMB22086636-0862RJBrytg able for patient ztblXKRZUZALLUZBUF0871-12-74C82:56:19 [facility] 2023-07-28 13:25:00 [id number] gevXw+t+53Tp6xye7G/IrqtmkcHq2 vYgdkdwgLIAaxqWlw0anzE1pcK97800-95-77H53:25:00 [facility] ([facility])Cardiology Progress NoteREPORT#:[id number] REPORT STATUS: SignedREPORT INITIALIZATION DATE:07/28/23 TIME: 132 PATIENT: EVELYN GIBSON UNIT #: [id number]#: [id number] [address] AGE: 83 SEX: F ATTEND: Apolinar Rankin MDADM AUTHOR: Parmjit Houser MDREPT SERVICE DT/TIME: 07/28/23 [...] 92/53 66.3 98 Room air 07/28 0337 98.2 64 14 111/64 79.5 91 Room air [...] rhythm, systolic murmur grade 3/6 Murmur assessment:systolic murmurRespiratory: clear to auscultationAbdomen: softLower extremity: LE assessment: no edemaNeuro/DISPLAY ASSOCIATE: alert, oriented X 3Psychiatry: normal affect, normal mood ResultsFindings/Data:Laboratory Tests 07/28 07/28 07/28 07/27 07/27 1117 0730 0158 2020 1647 Chemistry Sodium (134 - 147 mEq/L) 130 L Potassium (3.4 - 5.0 mEq/L) 3.8 Chloride (100 - 108 mEq/L) 93 L Carbon Dioxide (21 - 33 mEq/l) 31 Anion Gap (0 - 20) 10 BUN (7 - 25 mg/dL) 18 Creatinine (0.6 - 1.3 mg/dL) 0.8 Glomerular Filtr Rate (70 - 80) 72.2 Glucose (77 - 141 mg/dL) 100 POC Glucose (70 - 110 MG/DL) 142 H 117 H 156 H 115 H Calcium (8.0 - 10.5 mg/dL) 9.3 Magnesium (1.6 - 2.6 mg/dL) 2.07 Total Bilirubin (0.0 - 1.0 mg/dL) 0.60 AST (8 - 34 IUnit/L) [...] 37.0 g/dL) 33.3 RDW (11.5 - 14.5 %) 13.2 Plt Count (150 - 400 x10 3/uL) 280 MPV (7.0 - 9.0 fL) 11.8 H Neut % (Auto) (56.0 - 77.0 %) 75.6 Lymph % (Auto) (14.0 - 32.0 %) 12.8 L [place] % (Auto) (4.8 - 9.0 %) 10.8 H Eos % (Auto) (0.3 - 3.7 %) 0.2 L Baso % (Auto) (0.0 - 2.0 %) 0.2 Neut # (Auto) (2.0 - 7.6 x10 3/uL) 12.09 H Lymph # (Auto) (1.0 - 3.8 x10 3/uL) 2.04 [place] # (Auto) (0.1 - 0.8 x10 3/uL) 1.72 H Eos # (Auto) (0.0 - 0.2 x10 3/uL) 0.03 Baso # (Auto) (0.0 - 0.2 x10 3/uL) 0.03 Abs Immat Gran (auto) (0.00 - 0.03 x10 3/uL) 0.07 H Immature Gran % (0.0 [...] 1152 IMPRESSION: No acute cardiopulmonary process.Impression By: [id number] - Torrey Narvaez D.O. Results: labs reviewed, vital signs reviewed Diagnosis, Assessment Plan Free Text DxA P NotesFree Text DxA P Notes:1. Symptomatic severe aortic stenosis Echo: LVEF 60-64% with critical . Peak velocity 5.44, mean PG 73.21, mag PG 118.46, RISHABH VTI 0.6, RISHABH 0.8TAVR CTs done, report pendingCath done at outside facility reviewedcase will be discussed in valve conference [facility] RPT #:[id number] OF REPORTPRProgress gyla9724-37-97F39:25:00G.LUFH23965817-2905XETdepd able for patient abhrAGSCGEMYOIAAKV8195-16-28E96:23:30 [facility] 2023-07-28 12:52:00 [id number]+S VSZDtfUDxJRof/tO2uqfZ2KqlPZB2 iInNQd3M0zx12WGyKdYY6FaoJHj2143-08-49V89:52:00 [facility] ([facility])Structural Heart Post ProgressREPORT#:[id number] REPORT STATUS: SignedREPORT INITIALIZATION DATE:07/28/23 TIME: 1251 PATIENT: EVELYN GIBSON UNIT #: [id number]#: [id number] [address] AGE: 83 SEX: F ATTEND: Apolinar Rankin AUTHOR: Roberto Sahni NPREPT SERVICE DT/TIME: 07/28/23 1252* ALL edits or amendments must be made on the electronic/computer document * History of Present Illness HPIHPI:Consult has been received and aortic stenosis workup has been started by Structural Heart Team. Will review relevant data and present at Valve Conferenceif/when appropriate. HistorySmoking status for patients 13 years old or older: Former Smoker Medication/Allergy-Vaccine HxAllergies:Coded Allergies:diphenhydramine (From BENADRYL ALLERGY) (NAUSEA/VOMITING 07/26/23) at 1253 RPT #:[id number] OF REPORTPRProgress oyof7469-69-64C06:52:00G.IVCZ70490268-2282PZLvznt able for patient rguwXGDDLMJEENWDJO8695-69-39D17:53:31 [facility] 2023-07-27 12:56:00 [id number] a+tP2mLzrp2K435ji3PMfU7YwIGvf 3TlSkgm47k77u/tW2Ku/sE3870b8669-01-44L27:56:00 [facility])Cardiothoracic Surgery ProgREPORT#:[id number] REPORT STATUS: SignedREPORT INITIALIZATION DATE:07/27/23 TIME: 125 PATIENT: EVELYN GIBSON UNIT #: [id number]#: [id number] [address] AGE: 83 SEX: F ATTEND: Apolinar Rankin MDA AUTHOR: Heaven Patel NPREPT SERVICE DT/TIME: 07/27/23 1256* ALL edits or amendments must be made on the electronic/computer document * SubjectiveNursing reports:Yes: pain (IV infiltration). Review of SystemsConstitutional:Reports: fatigue. Skin:Denies: bruising, contusion, diaphoresis. Allergy/Immun:Denies: hives, itching, rhinorrhea. Eyes:Denies: discharge, visual loss/blurred. ENT:Denies: toothache, voice change. Respiratory:Reports: [place] (dyspnea on exertion). Cardiovascular:Reports: chest pain. GI:Denies: abdominal pain, nausea, vomiting. :Denies: dysuria, flank pain. Musculoskeletal:Denies: neck pain, thoracic pain. Neuro:Denies: focal weakness, slurred speech, syncope. All systems rev neg: except as marked Objective GeneralVS/I OLast Documented: Result Date Time Pulse Ox 93 07/27 1146 B/P 130/75 07/27 1146 B/P Mean 93.0 07/27 114 Temp 97.7 07/27 1146 Pulse 64 07/27 1146 Resp 18 07/27 1146 O2 Delivery Room air 07/27 08 24 hour I O ending at 0700: [...] capillary refill, normal temperatureMusculoskeletal: full range of motion, painless range of motionNeuro/DISPLAY ASSOCIATE: alert, oriented X 3Psychiatry: normal affect, normal judgment/insight Current MedicationsMedications:Active Meds + DC'd Last 24 HrsSimvastatin (SIMVASTATIN) 10 MG 2100 PO Amiodarone [...] 07/27 07/27 07/26 07/26 1148 0834 0756 20380 Chemistry Sodium (134 - 147 mEq/L) 129 L Potassium (3.4 - 5.0 mEq/L) 3.9 Chloride (100 - 108 mEq/L) 93 L Carbon Dioxide (21 - 33 mEq/l) 28 Anion Gap (0 - 20) 12 BUN [...] (150 - 400 x10 3/uL) 318 MPV (7.0 - 9.0 fL) 11.3 H Neut % (Auto) (56.0 - 77.0 %) 82.8 H Lymph % (Auto) (14.0 - 32.0 %) 9.6 L [place] % (Auto) (4.8 - 9.0 %) 6.5 Eos % (Auto) (0.3 - 3.7 %) 0.3 Baso % (Auto) (0.0 - 2.0 %) 0.2 Neut # (Auto) (2.0 - 7.6 x10 3/uL) 15.62 H Lymph # (Auto) (1.0 - 3.8 x10 3/uL) 1.81 [place] # (Auto) (0.1 - 0.8 x10 3/uL) 1.23 H Eos # (Auto) (0.0 - 0.2 x10 3/uL) 0.05 Baso # (Auto) (0.0 - 0.2 x10 3/uL) 0.04 Abs Immat Gran (auto) (0.00 - 0.03 x10 3/uL) 0.11 H Add Manual Diff NO [...] mastectomy. Patient is transferred to us from [facility], patient of Dr. Hernández, and she reports chest pressure, burning sensation in her throat, sensation of nausea which started a few weeks ago after having a GI illness with vomiting. Patient was evaluated at [facility] for reports of chest pain, and findings of normal EKG, troponins within normal limits, BNP elevated at 1397, UA negative, chest x-ray stable, echocardiogram done with findings of severe aortic stenosis patient referred to us for TAVR evaluation. Patient reports cardiac cath done at [facility], however, we have no report of cardiac cath [...] and he agrees with plan for TAVR.-TAVR else-oh-Jrpmwimwrn exeldye-Evsrtveeksxb-hmjct restriction-Resume prior hospital meds 07/27/2023TAVR eval-Pending CT ovipt-Gsklyxloiqej-kqure restrictionLeukocytosis, afebrile, UA 1+ leukocyte Estrace. Urine culture pending. Empiric bactrimPatient with choking episode on food today, patient states as she did not have her dentures in. -- -Pur ed diet, chest x-rayDiscussed with Dr. Rankin at 1312 at 0535 RPT #:[id number] OF REPORTPRProgress [id number]:56:00G.[id number] able for patient [id number]:12:49 [facility] 2023-07-27 11:18:00 [id number]:18:00 [facility] ([facility])Cardiology Progress NoteREPORT#:[id number] REPORT STATUS: SignedREPORT INITIALIZATION DATE:07/27/23 TIME: 1117 PATIENT: EVELYN GIBSON UNIT #: [id number]#: [id number] [address] AGE: 83 SEX: F ATTEND: Apolinar Rankin AUTHOR: Jesenia Leahy NPREPT SERVICE DT/TIME: 07/27/23 1118* ALL edits or amendments must be made on the electronic/computer document * Objective GeneralVS/I O:Laboratory Tests 07/27/23 0834:[Embedded Image Not Available] 07/26/23 1008:[Embedded Image Not Available]Current Medications Sig/Vishnu Start time Last Medication Dose Route Stop Time Status Admin Simvastatin 10 MG 2100 07/27 2100 AC PO 10/25 2058 Amiodarone HCl 200 MG BID 9A 5P 07/27 0900 CAN PO 10/25 0859 Amiodarone HCl 450 MG ASDIR 07/26 1500 DC 07/26 Dextrose/Water 250 ML IV 10/24 1459 1551 Amlodipine Besylate 5 MG DAILY 07/26 1300 DC 07/26 PO 10/24 1259 1324 Aspirin 81 MG DAILY 07/26 1300 AC 07/27 PO 10/24 1259 0817 Metoprolol Tartrate 25 MG BID 07/26 1300 AC 07/27 PO 0817 Alprazolam 0.5 MG Q8H PRN PRN 07/26 1215 AC PO 10/24 1214 Insulin Human Lispro 0 AC HS 07/26 1130 AC SUBQ 10/24 1129 Dextrose/Water 125 ML ASDIR PRN 07/26 0900 CKD IV 10/24 0859 Dextrose/Water 250 ML ASDIR PRN 07/26 0900 CKD IV 10/24 0859 Docusate Sodium 100 MG BID 07/26 0900 AC 07/27 PO 10/24 0859 0817 Glucagon 1 MG ASDIR PRN 07/26 0900 AC IM 10/24 0859 Acetaminophen 650 MG Q4H PRN PRN 07/26 0745 AC PO 10/24 0744 Al Hydrox/Mg Hydrox/ 30 ML Q4H PRN PRN 07/26 0745 AC Simethicone PO 10/24 0744 Ondansetron HCl 4 MG Q6H PRN PRN 07/26 0745 AC 07/26 IV 10/24 0744 1559 Sodium Chloride 10 ML ASDIR 07/26 0745 AC IV 10/24 0744 24 hour I O ending at 0700: 07/27 0700 07/26 1900 Intake Total Output Total Balance Patient 85.1 kg Weight Weight Bed scale Measurement Method Vital Signs: Date Time Temp Pulse Resp B/P B/P Pulse O2 O2 Flow FiO2 Mean Ox Delivery Rate 07/27 08 95 Room air 07/27 756 36.6 69 18 115/68 83.9 93 07/27 034 36.5 63 15 106/53 0.0 94 Room air 07/26 2334 36.4 61 15 120/56 0.0 94 Room air 07/26 2058 36.6 65 15 149/66 0.0 95 Room air 07/26 2015 129/59 82 07/26 1947 36.8 18 07/26 1220 36.7 92 17 101/68 79.3 94 Room air 07/26 1142 96 Room air PATIENT WEIGHT: Weight (lb): 187Weight (oz): 9.81Weight (kg): 85.100 Physical ExamGeneral appearance: alert, awake, oriented, no acute distress, pleasantHead/Eyes: atraumaticENT: moist mucosal membranesNeck: full range of motionCardiovascular: CV assessment: regular rate and rhythm, systolic murmur grade 3/6 Respiratory: clear to auscultationAbdomen: softLower extremity: LE assessment: no edemaNeuro/DISPLAY ASSOCIATE: alert, oriented X 3 Diagnosis, Assessment Plan Free Text DxA P NotesFree Text DxA P Notes:1. Symptomatic severe aortic stenosis Echo: LVEF 60-64% with critical . Peak velocity 5.44, mean PG 73.21, mag PG 118.46, RISHABH VTI 0.6, RISHABH 0.8TAVR CTs ordered, pendingCath done at outside facility- will need to obtain cath CDWill review cath and discuss in valve conference on Friday CTS following Dr. Houser will take over care tomorrow MDM by Dr. Crum at 1122 at 1642 RPT #:[id number] OF REPORTPRProgress knrh2276-13-51N99:18:00G.[id number] able for patient xisxPAHBIMQDVFHYNL4947-37-33A59:23:09 [facility] 2023-07-27 10:31:00 [id number] BavW+MKUOv3rzTjfOWlYuVIIhlB7K IBvUMvBWGTeh8uxenVoYbvjBG0m7484-46-15Y36:31:19137 5-0009 [place] [address] PATIENT NAME: EVELYN GIBSON ADMIT DATE: 07/26/23ACCOUNT NO: [id number] ROOM NO: 3352 AGE: 83 REPORT TYPE: eECHOCARDIOGRAM REPORT SEX: F ADMITTING PHYSICIAN:Apolinar Rankin MD ATTENDING PHYSICIAN:Apolinar Rankin MD *[address] [address]Cnavf: [phone]: [phone] Transthoracic Echocardiogram Patient: Gareth Gibson Date: 07/27/2023 BP: 106 / 53 [id number] 1940 Age: 83 Height: 63 in / 160 cmAccession#: [id number] Gender: F Weight: 186.6 lb / 84.8 kgBMI/BSA: 33.1 kg/m 2 / 1.88 m 2 *Ordering Physician: * Heaven Patel *Interpreting Physician: * Rowdy Crum MD*Bridge Crane Operator: * Latoya Gonzalez Indications: Cardiac surgery pre-op. Study data: Transthoracic echocardiogram. Procedure: Transthoracicechocardiography was performed. Image quality was adequate. The studywas technically limited due to poor acoustic window availability. Theparasternal window was low. Complete 2D, complete spectral Doppler, andcolor Doppler. Location: Bedside. Patient status: Inpatient. Patientroom number: [id number]. Study status: Routine. Findings Left ventricle: The cavity size is at the lower limits of normal. Wallthickness is increased. Systolic function is normal. The estimatedejection fraction is 60-64%. Wall motion is normal; there are noregional wall motion abnormalities. Doppler parameters are consistentwith abnormal left ventricular relaxation (grade 1 diastolicdysfunction).PATIENT NAME: EVELYN GIBSON Right ventricle: The cavity size is normal. Systolic function isnormal. TAPSE measurement is estimated at 23 mm. Systolic pressure ismildly increased. RVSP is estimated at 40 mmHg.Left atrium: The atrium is at the upper limits of normal in size.Right atrium: The atrium is at the upper limits of normal in size.Aorta: The aorta is poorly visualized. Aortic root: The aortic root isnormal in size.Aortic valve: The valve is trileaflet. The leaflets are severelythickened and severely calcified. The findings are consistent withcritical stenosis. Aortic valve peak velocity is 5.44 m/s, mean PG isestimated at 73.21 mmHg, max PG is estimated [...] are in the normal range (= 50%). Measurements Left ventricle Value Ref ENID, LAX 3.5 cm 3.8 - 5.2 ESD, LAX 2.3 cm 2.2 - 3.5 ESD/bsa, LAX 1.2 cm/m 2 1.3 - 2.1 FS, LAX 33 % 27 - 45 ESD/bsa major 3.0 cm/m 2 --------- ax, A4C ENID/bsa minor 3.0 cm/m 2 --------- ax, A4C ENID major ax, 6.5 cm --------- A2C ESD major ax, 5.2 cm --------- A2C ENID/bsa major 3.4 cm/m 2 --------- ax, A2C ESD/bsa major 2.8 cm/m 2 --------- ax, A2C PW, ED 1.0 cm 0.6 - 0.9 IVS/PW, ED 0.99 --------- EF 62 % 54 - 74 E', lat claire, TDI 5.9 cm/sec >=10.0 E/e', lat claire, 13 --------- TDI E', med cliare, TDI 3.4 cm/sec >=7.0 E/e', med claire, 23 ---------PATIENT NAME: EVELYN GIBSON TDI E', avg, TDI 4.6 cm/sec --------- E/e', avg, TDI 17 <=14 LVOT Value Ref Diam, S 1.91 cm --------- Area 2.9 cm 2 --------- Peak nadine, S 1 m/sec --------- Mean nadine, S 0.75 m/sec --------- VTI, S 23.3 cm --------- Peak grad, S 4 mm Hg --------- Mean grad, S 2 mm Hg --------- SV 67 ml --------- Qs 4.23 L/min --------- Qs/bsa 2.3 L/(min-m [...] 3.80 Vol/bsa, ES, 1-p 24 ml/m 2 11 - 40 A4C Vol, ES, 2-p 61 [...] mm Hg --------- Peak E/A ratio 0.51 --------- MVA, PHT 2.4 cm 2 --------- Pulmonic valve Value Ref SD v, ED 0.64 m/sec --------- Tricuspid valve Value Ref TR peak v 2.84 m/sec <=2.8 Peak RV-RA grad, 32 mm Hg --------- S Aortic root Value Ref Root diam, ED MM 3.68 cm --------- Ascending aorta Value Ref AAo AP diam, S 2.7 cm --------- AAo AP diam/bsa, 1.4 cm/m 2 --------- S Pulmonary artery Value Ref Pressure, S 36.6 mm Hg --------- Systemic veins Value Ref Estimated CVP 8 mm Hg --------- Conclusions Summary: 1. Left ventricle: The cavity [...] RISHABH by planimetry is estimated at 0.8 cm2.4. Mitral valve: The annulus is moderately calcified.5. Pericardium, extracardiac: There is no pericardial effusion. Prepared and electronically signed by Rowdy Crum MD07/27/2023 10:31 at 1031 PATIENT NAME: EVELYN GIBSON :31:0 0G.[id number] for patient qencJQTEMYDWOCOXST3329-95-76E27:31:44 [facility] 2023-07-26 15:24:00 [id number] 4RYYyJi/vGZnvk73Ane80tnGoduhD 5UcJH7AMgxyumPGGlrVJLxGAumB4029-10-55X57:24:00 [facility] ([facility]OSPITALCardiology ConsultationREPORT#:[id number] REPORT STATUS: SignedREPORT INITIALIZATION DATE:07/26/23 TIME: 1524 PATIENT: EVELYN GIBSON UNIT #: [id number]#: [id number] [address] AGE: 83 SEX: F ATTEND: Apolinar Rankin MDADM AUTHOR: Rowdy Crum MDREPT SERVICE DT/TIME: 07/26/23 1524* ALL edits or amendments must be made on the electronic/computer document * History of Present Illness HPIHPI:A very pleasant 83-year-old female patient status post breast cystectomy for breast cancer in the past hypertension dyslipidemia. She has been having progressive shortness of breath on exertion as well as chest pressure on exertion she [facility] [place] after she was found out to have severe aortic stenosis onthe echocardiogram. She had cardiac catheterization report but would not have access to the results. Dr. Hernández is her local city driver History - Adult longitudinalSmoking status for patients [...] LCoagulation INR (0.8 - 1.2) 1.1 PTT (Starr) (25.0 - 39.5 Seconds) 35.2 PT Patient/Control Mix (9.3 - 12.9 11.9SECONDS)Hematology WBC (4.5 - 11.0 x10 3/uL) 12.1 [...] (Auto) (14.0 - 32.0 %) 11.8 L [place] % (Auto) (4.8 - 9.0 %) 8.5 Eos % (Auto) (0.3 - 3.7 %) 0.4 Baso % (Auto) (0.0 - 2.0 %) 0.2 Neut # (Auto) (2.0 - 7.6 x10 3/uL) 9.50 H Lymph # (Auto) (1.0 - 3.8 x10 3/uL) 1.43 [place] # (Auto) (0.1 - 0.8 x10 3/uL) 1.03 H Eos # (Auto) (0.0 - 0.2 x10 3/uL) 0.05 Baso # (Auto) (0.0 - 0.2 x10 3/uL) 0.03 Abs Immat Gran (auto) (0.00 - 0.03 0.06 Hx10 3/uL) Immature Gran % (0.0 - 2.0 %) 0.5 Nucleated RBC % (0 - 0 %) 0.0 Nucleated RBCs # (Man) (0.0 - 0.1 0.00x10 3/uL)Urines Urine Color (YEL/STRAW) YELLOW Urine Appearance (CLEAR) SL CLOUDY Urine pH (5.0 - 7.0) 5.0 Ur Specific [place] (1.005 - 1.030) 1.017 Urine Protein (NEGATIVE) NEGATIVE Urine Glucose (UA) (NEGATIVE) NEGATIVE Urine Ketones (NEGATIVE) NEGATIVE Urine Blood (NEGATIVE) 1+ H Urine Nitrite (NEGATIVE) NEGATIVE Urine Bilirubin (NEGATIVE) NEGATIVE Urine Urobilinogen (0.2 - 1.0 mg/dL) 0.2 Ur Leukocyte Esterase (NEGATIVE) 1+ H Urine RBC (0 - 3 RBC/HPF) 0-3 Urine WBC (0 - 3 WBC/HPF) 4-9 H Ur Squamous Epith Cells (NONE SEEN /HPF) 6-10 H Urine Bacteria (NONE SEEN [...] of hemodynamically significant (greater than50%) stenosis. LOCATION: F9Eqatleggtn By: [id number] - Tammie Francis M.D.RADIOLOGY - XR CHEST 2 V 07/26 1109 Report Impression - Status: SIGNED Entered: 07/26/2023 1127 IMPRESSION:1. No radiographic evidence of acute cardiopulmonary process.Impression By: [id number] - Toya Ybarra M.D. Current Medications Sig/Vishnu Start time Last Medication Dose Route Stop Time Status Admin Simvastatin 10 MG 2100 07/27 2100 AC PO 10/25 2058 Amiodarone HCl 450 MG ASDIR 07/26 1500 CKD Dextrose/Water 250 ML IV 10/24 1459 Amlodipine Besylate 5 MG DAILY 07/26 1300 DC 07/26 PO 10/24 1259 1324 Aspirin 81 MG DAILY 07/26 1300 AC 07/26 PO 10/24 1259 1324 Metoprolol Tartrate 25 MG BID 07/26 1300 AC 07/26 PO 1324 Alprazolam 0.5 MG Q8H PRN PRN 07/26 1215 AC PO 10/24 1214 Insulin Human Lispro 0 AC HS 07/26 1130 AC SUBQ 10/24 1129 Dextrose/Water 125 ML ASDIR PRN 07/26 09 CKD IV 10/24 0859 Dextrose/Water 250 ML ASDIR PRN 07/26 0900 CKD IV 10/24 0859 Docusate Sodium 100 MG BID 07/26 09 AC PO 10/24 0859 Glucagon 1 MG ASDIR PRN 07/26 09 AC IM 10/24 0859 Acetaminophen 650 MG [...] valve conference on Friday at 1527 RPT #:[id number] OF REPORTZCCipfkrahmvrd1292-86-99K90:24:00G.PDOC2 [id number] for patient bukpUAQQUVROMQQZMC0843-04-92C15:27:26 [facility] 2023-07-26 11:38:00 [id number] bxygiXBxUgq2fmTwF1UD5gs6Q9puQ sAUKsNoQodp5f43rt/Yd5s1PQ+e0914-88-72Y32:38:00 [facility] ([facility])History Physical - AdultREPORT#:[id number] REPORT STATUS: SignedREPORT INITIALIZATION DATE:07/26/23 TIME: 1137 PATIENT: EVELYN GIBSON UNIT #: [id number]#: [id number] [address] AGE: 83 SEX: F ATTEND: Apolinar Rankin MDA AUTHOR: Heaven Patel NPREPT SERVICE DT/TIME: 07/26/231137* ALL edits or amendments must be made on the electronic/computer document * Heaven Patel 07/26/23 1138:History of Present Illness HPIChief complaint:Chest pain, referred for TAVR evaluation.Patient resting in bed, no complaints.HPI:83-year-old female, PMHx HTN, diabetes on metformin, HLD, back pain, arthritis, vertigo for which she takes a Xanax, breast cancer left-sided mastectomy. Patient is transferred to us from [facility], patient of Dr. Hernández, and she reports chest pressure, burning sensation in her throat, sensation of nausea which started a few weeks ago after having a GI illness withvomiting. Patient was evaluated at [facility] for reports of chest pain, and findings of normal EKG, troponins within normal limits, BNP elevated at 1397, UA negative, chest x-ray stable, echo cardiogram done with findings of severe aortic stenosis patient referred to us for TAVR evaluation. HistorySmoking status for patients 13 years old or older: Former Smoker Medication/Allergy-Vaccine HxAllergies:Coded Allergies:diphenhydramine (From BENADRYL ALLERGY) (NAUSEA/VOMITING 07/26/23) Review of SystemsConstitutional:Reports: fatigue. Skin:Denies: diaphoresis, ecchymosis, itching. Eyes:Denies: visual loss/blurred, eye pain. ENT:Denies: nasal congestion, throat pain, throat swelling, tongue pain, tongue swelling. Respiratory:Denies: productive cough (sputum), SOB, wheezing. Cardiovascular:Denies: [place] (dyspnea on exertion), edema. GI:Denies: abdominal pain, nausea, vomiting. :Denies: dysuria, flank pain. Neuro:Denies: seizure, slurred speech, syncope. Psych:Denies: agitation, auditory hallucination, visual hallucination. All systems rev neg: except as marked Physical [...] capillary refill, normal range of motionMusculoskeletal: full range of motion, normal inspectionNeuro/DISPLAY ASSOCIATE: alert, oriented X 3Skin: dry, intact, no [...] Glucose (77 - 141 mg/dL) 145 H Hemoglobin A1c (4.8 - 6.0 %A1C) 5.4 Calcium [...] INR (0.8 - 1.2) 1.1 PTT (Tracy) (25.0 - 39.5 Seconds) 35.2 PT Patient/Control [...] (Auto) (14.0 - 32.0 %) 11.8 L [place] % (Auto) (4.8 - 9.0 %) 8.5 Eos % (Auto) (0.3 - 3.7 %) 0.4 Baso % (Auto) (0.0 - 2.0 %) 0.2 Neut # (Auto) (2.0 - 7.6 x10 3/uL) 9.50 H Lymph # (Auto) (1.0 - 3.8 x10 3/uL) 1.43 [place] # (Auto) (0.1 - 0.8 x10 3/uL) 1.03 H Eos # (Auto) (0.0 - 0.2 x10 3/uL) 0.05 Baso # (Auto) (0.0 - 0.2 x10 3/uL) 0.03 Abs Immat Gran (auto) (0.00 - 0.03 x10 3/uL) 0.06 H Immature Gran % (0.0 [...] of hemodynamically significant (greater than50%) stenosis. LOCATION: D5Goezzfdyzg By: Remington Francis M.D.RADIOLOGY - XR CHEST 2 V 07/26 1109 Report Impression - Status: SIGNED Entered: 07/26/2023 1127 IMPRESSION:1. No radiographic evidence of acute cardiopulmonary process.Impression By: Kylah Ybarra M.D. Diagnosis, Assessment PlanOrders: Procedure Date/time [...] Active TAVR Nurse Consult 07/26 0845 Active Mill Tender Physician Cons. 07/26 0844 Active Resuscitation Status 07/26 0747 Complete MRSA Protocol 07/26 0747 Active Intake Output 07/26 0747 Active Measure Height 07/26 0747 Active Weight: Obtain 07/26 0747 Active Blood Pressure Mgmt Parameter 07/26 0747 Active Activity 07/26 0747 Active Blood Glucose Monitoring 07/26 0747 Active UA WITH CULTURE IF INDICATED 07/26 0747 Active THROMBOPLASTIN TIME PARTIAL 07/26 0747 Complete PROTHROMBIN TIME 07/26 0747 Complete LIPID PROFILE (CORONARY RISK) 07/26 0747 Complete HGBA1C% 07/26 0747 Complete COMPREHENSIVE METABOLIC PANEL 07/26 0747 Complete CBC W/AUTO DIFF 07/26 0747 Complete B TYPE NATRIURETIC PEPT 07/26 0747 Complete EKG 07/26 0747 Active ADULT ECHO COMPLETE 07/26 0747 Active _RT: PULSE OXIMETRY SPOT CHECK 07/26 742 Active _RT: INCENTIVE SPIROMETER 07/26 742 Active Vital Signs 07/26 07 Active Telemetry Monitoring 07/26 07 Active Sequential Compression Device 07/26 07 Active Notify Vitals 07/26 742 Active IV Access 07/26 742 Active Intake Output 07/26 742 Active Cough And Deep Breath: Assist 07/26 742 Active PHYSICAL THERAPIST CONSULT 07/26 742 Active Occupational Therapist Consult 07/26 742 Active Telemetry Monitoring 07/26 733 Active Plan discussed with: patient, collaborating MD Free Text DxA P NotesFree Text DxA P Notes:83-year-old female, PMHx HTN, diabetes on metformin, HLD, back pain, arthritis, vertigo for which she reportedly takes a Xanax, breast cancer left-sided mastectomy. Patient is transferred to us from [facility], patient of Dr. Hernández, and she reports chest pressure, burning sensation in her throat, sensation of nausea which started a few weeks ago after having a GI illness with vomiting. Patient was evaluated at [facility] for reports of chest pain, and findings of normal EKG, troponins within normal limits, BNP elevated at 1397, UA negative, chest x-ray stable, echocardiogram done with findings of severe aortic stenosis patient referred to us for TAVR evaluation. Patient reports cardiac cath done at [facility], however, we have no report of cardiac cath and no CD with echo or heart cath findings. Assessment:Aortic stenosis, TAVR evalHTNDiabetesHyponatremia Patient seen and evaluated by Dr. Rankin and he agrees with plan for TAVR.-TAVR ulpn-nc-Imqyufuhax tqddnbi-Blarjeezzzhq-qpxdm restriction-Resume prior [facility] Apolinar Rankin 08/09/23 0828:Attestations Physician AttestationAgree w/findings [...] for the kind consult. at 1204 at 0849 RPT #:[id number] OF REPORTHPHistory and physical girfshpzves4724-39-05S69:38:00G.[id number] AVAvailable for patient evjuGJHXKPTHCKZLYN6831-35-68Q40:05:06 [facility] 2023-07-26 08:28:00 [id number]+[id number]/ Fj4SbYeSjGrUHAC16KgyXVJLk4jCq bmFL+Jjqb0JpFpSviPSNFwS4QxC9076-16-96C18:28:34092 4-0033 [place] [address] PATIENT NAME: EVELYN GIBSON ADMIT DATE: 07/26/23ACCOUNT NO: [id number] ROOM NO: [facility] AGE: 83 REPORT TYPE: eELECTROCARDIOGRAM REPORT SEX: F ADMITTING PHYSICIAN:Apolinar Rankin MD ATTENDING PHYSICIAN:Apolinar Rankin MD Order:[id number] Reason : PREOP Test Date/Time Stamp:FriJul 26 2023 08:28:22Blood Pressure : / mmHGVent. Rate : 083 BPM Atrial Rate : 083 BPM P-R Int : 132 ms QRS Dur : 090 ms QT Int : 398 ms P-R-T Axes : 084 035 074 degrees QTc Int : 467 ms Normal sinus rhythm with sinus arrhythmiaNormal ECGNo previous ECGs availableConfirmed by BAN RUTH MD ([id number]) on 07/26/2023 2:48:15 PM Referred By: Self Referred Confirmed by:BAN RUTH MD at 1448 PATIENT NAME: EVELYN GIBSON .[id number] AVAvailable for patient beicJGWKUZJBOCXOML8800-75-12Q54:48:43 [facility]
--- NOTE | 2023-10-04 13:13 | RAD REPORT ---
EXAM DESCRIPTION: RAD - Chest Single View - 10/04/2023 1:03 pm CLINICAL HISTORY: Cough;Congestion Chest pain. COMPARISON: <Comparisons> FINDINGS: Portable technique limits examination quality. The lungs are grossly clear. The heart is normal in size. No displaced fractures. IMPRESSION: No acute intrathoracic process suspected.
--- NOTE | 2023-10-04 13:34 | RAD REPORT ---
EXAM DESCRIPTION: CT - Head Brain Wo Cont - 10/04/2023 1:28 pm CLINICAL HISTORY: TRAUMA Trauma, fall, head injury COMPARISON: <Comparisons> TECHNIQUE: All CT scans are performed using dose optimization technique as appropriate and may inclu de automated exposure control or mA/KV adjustment according to patient size. FINDINGS: No intracranial hemorrhage, hydrocephalus or extra-axial fluid collection.Mild generalized brain atrophy is present with mild periventricular and deep white matter chronic microvascular ische madyson changes.No areas of brain edema or evidence of midline shift. The paranasal sinuses and mastoids are clear. The calvarium is intact. IMPRESSION: No acute intracranial abnormality.
[2023-10-04] MEDS ORDERED: ALBUTEROL 2.5 MG/3 ML NEB SOL ONE (14:26)
[2023-10-04] MEDS ORDERED: IPRATROPIUM BROM 0.5MG/2.5ML ONE (14:26)
[2023-10-04] MEDS ORDERED: MAGNESIUM SULFATE 1 gm IVPB 1 GM/100 ML BAG IV ONE (14:34)
[2023-10-04 16:07] LABS: Absolute Lymphocytes (CBC) 0.5 K/uL (0.7-4.9); Hematocrit 32.6 % (36.0-45.0); Lymphocytes % 4.5 % (15.3-44.8); MCV 90.6 fL (80-100); MPV 8.8 fL (7.6-11.3); Platelets 376 thou/uL (152-406)
[2023-10-04 16:17] LABS: Protime INR 1.2
[2023-10-04 16:30] LABS: Bilirubin Total 0.6 mg/dL (0.2-1.0); Potassium 3.7 mEq/L (3.5-5.1); Protein, Total 7.7 g/dL (6.4-8.2)
[2023-10-04 16:53] LABS: Blood Morphology Comment NOT SEEN (NOT SEEN); Platelet Estimate ADEQ
[2023-10-04] MEDS ORDERED: CEFTRIAXONE 1000 MG/VIAL ONE (17:54)
[2023-10-04] MEDS ORDERED: NA CHLORIDE 0.9% 1,000 ML ONE (17:55)
[2023-10-04] MEDS ORDERED: AZITHROMYCIN 500 MG INJ IVPB ONE (17:55)
[2023-10-04] MEDS ORDERED: NA CHLORIDE 0.9% 250 ML ONE (17:55)
--- NOTE | 2023-10-04 18:31 | P.HP ---
Certification for Inpatient Patient admitted to: Inpatient With expected LOS: >2 Midnights Practitioner: I am a practitioner with admitting privileges, knowledge of patient current condition, hospital course, and medical plan of care. Services: Services provided to patient in accordance with Admission requirements found in Title 42 Section 412.3 of the Code of Federal Regulations Patient History Date of Service: 10/05/23 Reason for admission: SOB History of Present Illness: 83-year-old female with past medical history of hypertension, diabetes, hyperlipidemia, COPD, atrial fibrillation was brought to ER with generalized weakness and shortness of breath and upper respiratory tract symptoms. Patient denies any fever or chills. No chest pain . Has nasal stuffiness and cough which has been progressively worsening. Cough is productive with mucoid expectoration. Patient also started having shortness of breath, denies any nausea vomiting. She also had fall 2 days ago , denies any syncope. No loss of consciousness. Denies any headache. Patient was assessed in the ER and was found to have URI along with pneumonitis, leukocytosis, lactic acidosis and the patient was admitted for further management. Allergies diphenhydramine [From Benadryl] Allergy (Verified 07/21/20 14:33) Nausea/Vomiting Home medications list reviewed: Yes Home Medications: Lisinopril/Hydrochlorothiazide [Zestoretic 10-12.5 mg Tablet] 10 - 12.5 mg PO DAILY 12/10/14 Metformin HCl [Glucophage*] 500 mg PO DAILY 12/10/14 Simvastatin [Zocor*] 20 mg PO DAILY 12/10/14 Aspirin Chewable [Aspirin Chewable*] 81 mg PO DAILY 07/21/20 Docusate Sodium [Stool Softener] 100 mg PO DAILY 07/21/20 Amiodarone HCl [Cordarone*] 1 tab PO BID 08/26/23 Apixaban [Eliquis *] 1 tab PO BID 08/26/23 ALPRAZolam [Xanax] 1 mg PO BID PRN 10/04/23 Amlodipine [Norvasc] 10 mg PO DAILY 10/04/23 - Past Medical/Surgical History Diabetic: Yes Past Medical History: Reviewed- Non-Contributory -: HTN -: NIDDM -: breast cancer -: High cholesterol Past Surgical History: Reviewed- Non-Contributory -: eye surgery -: L mastectomy -: bronken wrist -: rotater cuff surgery -: hystertectomy. 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 Psychosocial/ Personal History: Lives at home alone - Family History Family History: Reviewed- Non-Contributory - Social History Smoking Status: Current some day smoker Alcohol use: No CD- Drugs: No Caffeine use: Yes Review of Systems 10-point ROS is otherwise unremarkable General: Weakness, Malaise Respiratory: Cough, Shortness of Breath Gastrointestinal: Unremarkable Physical Examination - Vital Signs Temperature: 98.3 F Blood Pressure: 122/82 Pulse: 76 Respirations: 18 Pulse Ox (%): 98 - Physical Exam General: Alert, Oriented x3, Cooperative, Mild distress HEENT: Atraumatic, Normocephalic Neck: Supple Respiratory: Normal air movement, Crackles/rales Cardiovascular: Normal S1 S2, No gallops, No rubs, Edema Capillary refill: <2 Seconds Gastrointestinal: Soft and benign, W/out hepatosplenomegaly, No tenderness, No masses Musculoskeletal: No clubbing, Swelling Integumentary: No rashes Neurological: Normal speech, Normal strength at 5/5 x4 extr, Normal tone, Normal reflexes 2+, Normal affect Lymphatics: No axilla or inguinal lymphadenopathy - Studies Laboratory Data (last 24 hrs) 10/04/23 10/04/23 10/04/23 15:53 15:53 15:53 WBC 11.50 H Hgb 10.6 L Hct 32.6 L Plt Count 376 PT 13.1 H INR 1.20 APTT 35.4 Sodium 137 Potassium 3.7 BUN 16 Creatinine 1.08 H Glucose 163 H Total Bilirubin 0.6 AST 22 ALT 23 Alkaline Phosphatase 80 Microbiology Data (last 24 hrs): 10/04/23 16:29 Nasopharnyx Influenza Type A Antigen Screen - Final 10/04/23 16:29 Nasopharnyx Influenza Type B Antigen Screen - Final Assessment and Plan - Problems (Diagnosis) (1) Community acquired pneumonia Current Visit: No Status: Acute Plan: Monitor closely on telemetry Started on IV antibiotics Bronchodilators as needed Influenza negative COVID test is negative as well X-ray findings noted (2) Diabetes Current Visit: No Status: Chronic Plan: Insulin sliding scale Accu-Chek before every meal and at bedtime Will get an A1c in a.m. (3) Hypertension Current Visit: No Status: Chronic Plan: Continue home medications and titrate as needed Patient has a history of TAVR Continue home medications including amiodarone (4) Sepsis Current Visit: Yes Status: Acute Plan: Possibly from viral infection Started on IV antibiotic Lactic acidosis noted Will trend lactic acid levels IV hydration Will obtain cultures Change antibiotic as per sensitivity (5) Lactic acidosis Current Visit: Yes Status: Acute Plan: Serial lactic acid levels Discharge Plan: Home Plan to discharge in: 48 Hours - Advance Directives Does patient have a Living Will: No Does patient have a Durable POA for Healthcare: No - Code Status/Comfort Care Code Status: Full Code Time Spent Managing Pts Care (In Minutes): 58
[2023-10-04] MEDS ORDERED: ACETAMINOPHEN 500 MG TAB PO PRN (18:32)
[2023-10-04] MEDS ORDERED: ONDANSETRON 4 MG/2 ML VIAL IV PRN (18:32)
[2023-10-04] MEDS ORDERED: ALBUTEROL 2.5 MG/3 ML NEB SOL NEB PRN (18:32)
--- NOTE | 2023-10-04 18:40 | EDPHYS ---
Physician Documentation [facility] Name: Tara Gibson Age: 83 yrs Sex: Female : 1940 Arrival Date: 10/04/2023 Time: 12:34 Bed 20 Private MD: ED Physician Charles Garza HPI: 10/04 18:41 This 83 yrs old Female presents to ER via EMS with complaints of Cough, Congestion, kb General Weakness. 18:41 Pt is an 83 year old female who presents for cough, congestion, wheezing, dyspnea for 2 kb weeks that has gotten wrose. Historical: - Allergies: 12:53 Diphenhydramine; me1 - PMHx: 12:53 Arthritis; Hypertension; Back pain; Diabetes - NIDDM; High Cholesterol; me1 - PSHx: 12:53 aortic vavle replacement; Left Mastectomy; me1 - Immunization history:: Adult Immunizations up to date. - Social history:: Smoking status: Patient/guardian denies using tobacco, but has a distant history of tobacco abuse. ROS: 18:40 Constitutional: Negative for fever, chills, and weight loss, kb 18:40 Respiratory: Positive for cough, shortness of breath, 18:40 All other systems are negative, Exam: 18:40 Constitutional: This is a well developed, well nourished patient who is awake, alert, kb and in no acute distress. Eyes: Pupils equal round and reactive to light, extra-ocular motions intact. Lids and lashes normal. Conjunctiva and sclera are non-icteric and not injected. Cornea within normal limits. Periorbital areas with no swelling, redness, or edema. ENT: Moist Mucous membranes Cardiovascular: Regular rate Abdomen/GI: Soft, non-tender. No distention Skin: Warm, dry with normal turgor. Normal color. MS/ Extremity: Pulses equal, no cyanosis. Neurovascular intact. Full, normal range of motion. Neuro: Awake and alert, GCS 15, oriented to person, place, time, and situation. Moves all extremities. Normal gait. 18:40 Head/face: Noted is no obvious of injury or deformity except contusion, that is superficial, of the left cheek and left eye, 18:40 Respiratory: the patient does not display signs of respiratory distress, Respirations: normal, Breath sounds: wheezing: expiratory that is mild, that is moderate, is heard diffusely, Vital Signs: 12:44 BP 123 / 42; Pulse 87; Resp 20; Temp 97.8(O); Pulse Ox 93% on R/A; Weight 81.65 kg; me1 Height 5 ft. 2 in. ; 12:46 BP 100 / 60; Pulse 87; Resp 20; Pulse Ox 94% on R/A; me1 15:30 BP 112 / 36; Pulse 88; Resp 22; Pulse Ox 90% on R/A; me1 16:30 BP 130 / 48; Pulse 92; Resp 16; Pulse Ox 96% 2 lpm ; me1 17:30 BP 133 / 57; Pulse 97; Resp 18; Pulse Ox 97% on 2 lpm NC; me1 18:30 BP 117 / 53; Pulse 91; Resp 20; Pulse Ox 94% on 1 lpm NC; me1 19:30 BP 128 / 62; Pulse 99; Resp 20; Pulse Ox 97% on 1 lpm NC; me1 12:44 Body Mass Index 32.92 (81.65 kg, 157.48 cm) me1 15:30 o2 at 2 LPM via NC administered. me1 MDM: 12:45 Patient medically screened. kb 18:41 Differential Diagnosis: Other flu, covid, uri, hypoxia, pulmonary edema. Data reviewed: kb vital signs, nurses notes. Consideration of Admission/Observation Patient was admitted/placed on observation. Escalation of care including admission/observation considered. Management of patient was discussed with the following: Hospitalist: Be accepts pt for admission. Historians other than the Patient: EMS: [facility]. Counseling: I had a detailed discussion with the patient and/or guardian regarding the historical points, exam findings, and any diagnostic results supporting the discharge/admit diagnosis, lab results, radiology results, the need for further work-up and treatment in the hospital. 10/04 12:49 Order name: Blood Culture Adult (2) kb 10/04 12:49 Order name: CBC with Diff; Complete Time: 16:59 kb 10/04 12:49 Order name: CMP; Complete Time: 16:59 kb 10/04 12:49 Order name: Lactate w/ 2H reflex if indic.; Complete Time: 16:59 kb 10/04 12:49 Order name: Protime (+inr); Complete Time: 16:24 kb 10/04 12:49 Order name: Ptt, Activated; Complete Time: 16:24 kb 10/04 16:10 Order name: Manual Differential; Complete Time: 16:59 EDMS 10/04 16:24 Order name: Flu; Complete Time: 17:07 kb 10/04 16:24 Order name: COVID-19 SARS RT PCR; Complete Time: 17:13 kb 10/04 18:37 Order name: CBC with Automated Diff EDMS 10/04 18:37 Order name: CBC with Automated Diff EDMS 10/04 18:37 Order name: Comprehensive Metabolic Panel EDMS 10/04 18:37 Order name: Comprehensive Metabolic Panel EDMS 10/04 12:49 Order name: Chest Single View XRAY; Complete Time: 13:16 kb 10/04 12:49 Order name: CT Head Brain wo Cont; Complete Time: 13:35 kb 10/04 12:49 Order name: EKG; Complete Time: 12:50 kb 10/04 12:49 Order name: Accucheck; Complete Time: 19:44 kb 10/04 12:49 Order name: Cardiac monitoring; Complete Time: 19:44 kb 10/04 12:49 Order name: EKG - Nurse/Tech; Complete Time: 15:37 kb 10/04 12:49 Order name: IV Saline Lock - Large Bore; Complete Time: 15:01 kb 10/04 12:49 Order name: Labs collected and sent; Complete Time: 19:44 kb 10/04 12:49 Order name: O2 Per Protocol; Complete Time: 12:57 kb 10/04 12:49 Order name: O2 Sat Monitoring; Complete Time: 12:57 kb 10/04 12:49 Order name: Vital Signs; Complete Time: 12:57 kb Administered Medications: 14:33 Drug: Albuterol Inhalation 2.5 mg Inhalation once Route: Inhalation; me1 14:33 Drug: Ipratropium Inhalation Aerosol 0.5 mg Inhalation once Route: Inhalation; me1 14:59 Drug: Magnesium Sulfate IVPB 1 grams IVPB once over 1 hrs Route: IVPB; Infused Over: 1 me1 hrs; Site: right forearm; 15:59 Follow up: Response: No adverse reaction; IV Status: Completed infusion me1 18:03 Drug: NS 0.9% IV 1000 ml IV at 1000 ml once Route: IV; Rate: 1000 ml; Site: right me1 antecubital; 19:43 Follow up: IV Status: Infusion continued upon admission me1 18:03 Drug: Rocephin IV 1 grams IV at calculated rate once; Given slow IV push per pharmacy me1 instructions Route: IV; Rate: calculated rate; Site: right antecubital; 18:03 Follow up: Response: No adverse reaction me1 18:03 Follow up: IV Status: Completed infusion me1 19:43 Follow up: IV Status: Completed infusion me1 18:03 Drug: Zithromax IVPB 500 mg IVPB once over 1 hrs; mix in 250 mL NS Route: IVPB; Infused me1 Over: 1 hrs; Site: right antecubital; 19:03 Follow up: IV Status: Completed infusion; IV Intake: 250ml me1 Disposition Summary: 10/04/23 18:39 Hospitalization Ordered Notes: Hospitalization Status: Observation kb Provider: Vimal Lr Location: Telemetry/MedSurg (observation) kb Condition: Stable kb Problem: new kb Symptoms: are unchanged kb Bed/Room Type: Standard Room Assignment: [facility](10/04/23 19:13) [facility] Diagnosis - Dyspnea kb Forms: - Medication Reconciliation Form kb - SBAR form kb - Leadership Thank You Letter kb Signatures: Dispatcher [employer] Yasmin Amato, OLE[employer]IO-[employer]-Soledad Li, RN RN me1 Carole Black [email or web address] Corrections: (The following items were deleted from the chart) 19:13 18:39 kb [email or web address]
--- NOTE | 2023-10-04 18:40 | ER ---
Nurse's Notes [facility] Name: Tara Gibson Age: 83 yrs Sex: Female : 1940 Arrival Date: 10/04/2023 Time: 12:34 Bed 20 Private MD: Diagnosis: Dyspnea Presentation: 10/04 12:44 Chief complaint: EMS states: toned out for cough/congestion, chills, wheezing and chest me1 tightness for a few weeks, c/o increased weakness. Fell 3 days ago and hit the left side of her face and bilateral knees- on eliquis, No LOC. EMS established 22 g to RFA. Administered solumedrol 125mg, A\T\A neb tx with a 2nd albuterol neb tx. Coronavirus screen: Vaccine status: Patient reports receiving the 2nd dose of the covid vaccine. Ebola Screen: No symptoms or risks identified at this time. Initial Sepsis Screen: Does the patient meet any 2 criteria? No. Patient's initial sepsis screen is negative. Does the patient have a suspected source of infection? Yes: Productive cough/pneumonia. Risk Assessment: Do you want to hurt yourself or someone else? Patient reports no desire to harm self or others. Onset of symptoms is unknown. 12:44 Method Of Arrival: EMS: [place] [id number] 12:44 Acuity: JESSICA 3 me1 Triage Assessment: 12:53 General: Appears uncomfortable, ill, well developed, well nourished, Behavior is calm, me1 cooperative, appropriate for age, Reports cough/congestion, chills, wheezing and chest tightness for a few weeks, c/o increased weakness. Fell 3 days ago and hit the left side of her face and bilateral knees- on eliquis, No LOC. Pain: Denies pain. Neuro: Level of Consciousness is awake, alert, obeys commands, Oriented to person, place, time, situation, Appropriate for age. Cardiovascular: Capillary refill < 3 seconds Patient's skin is warm and dry. Respiratory: Airway is patent Respiratory effort is even, unlabored, Respiratory pattern is regular, symmetrical. Derm: Bruising that is to left face and bilateral knees. . Historical: - Allergies: 12:53 Diphenhydramine; me1 - PMHx: 12:53 Arthritis; Hypertension; Back pain; Diabetes - NIDDM; High Cholesterol; me1 - PSHx: 12:53 aortic vavle replacement; Left Mastectomy; me1 - Immunization history:: Adult Immunizations up to date. - Social history:: Smoking status: Patient/guardian denies using tobacco, but has a distant history of tobacco abuse. Screenin:56 [facility] ED Fall Risk Assessment (Adult) History of falling in the last 3 months, me1 including since admission No falls in past 3 months (0 pts) Confusion or Disorientation No (0 pts) Intoxicated or Sedated No (0 pts) Impaired Gait Yes (1 pt) Mobility Assist Device Used Yes (1 pt) Altered Elimination Yes (1 pt) Score/Fall Risk Level 3 or more points = High Risk Maintained a safe environment, Hourly rounding (assess needs \T\ fall precautionary measures) done, Used ambulatory aids as needed (educated on \T\ assisted with), Used gait belt as appropriate Implemented a Fall Risk Plan of Care. Abuse screen: Denies threats or abuse. Nutritional screening: No deficits noted. Tuberculosis screening: No symptoms or risk factors identified. Assessment: 12:56 General: See triage assessment. . me1 Vital Signs: 12:44 BP 123 / 42; Pulse 87; Resp 20; Temp 97.8(O); Pulse Ox 93% on R/A; Weight 81.65 kg; me1 Height 5 ft. 2 in. ; 12:46 BP 100 / 60; Pulse 87; Resp 20; Pulse Ox 94% on R/A; me1 15:30 BP 112 / 36; Pulse 88; Resp 22; Pulse Ox 90% on R/A; me1 16:30 BP 130 / 48; Pulse 92; Resp 16; Pulse Ox 96% 2 lpm ; me1 17:30 BP 133 / 57; Pulse 97; Resp 18; Pulse Ox 97% on 2 lpm NC; me1 18:30 BP 117 / 53; Pulse 91; Resp 20; Pulse Ox 94% on 1 lpm NC; me1 19:30 BP 128 / 62; Pulse 99; Resp 20; Pulse Ox 97% on 1 lpm NC; me1 12:44 Body Mass Index 32.92 (81.65 kg, 157.48 cm) me1 15:30 o2 at 2 LPM via NC administered. vt1 ED Course: 12:42 Patient arrived in ED. eb 12:43 Soledad Ruby, MARIO is Primary Nurse. me1 12:44 Yasmin Spears FNP-C is PHCP. kb 12:44 Charles Garza MD is Attending Physician. kb 12:53 Triage completed. me1 12:53 Arm band placed on Patient placed in an exam room. me1 12:56 Patient has correct armband on for positive identification. Bed in low position. Call me1 light in reach. Side rails up X 1. Provided Education on: POC. Verbalizedf understanding. . 12:56 No provider procedures requiring assistance completed. me1 13:04 Chest Single View XRAY In Process Unspecified. EDMS 13:30 CT Head Brain wo Cont In Process Unspecified. EDMS 18:39 Vimal Lr MD is Hospitalizing Provider. kb 19:44 Blood Culture Adult (2) Sent. me1 19:45 Patient admitted, IV remains in place. me1 Administered Medications: 14:33 Drug: Albuterol Inhalation 2.5 mg Inhalation once Route: Inhalation; me1 14:33 Drug: Ipratropium Inhalation Aerosol 0.5 mg Inhalation once Route: Inhalation; me1 14:59 Drug: Magnesium Sulfate IVPB 1 grams IVPB once over 1 hrs Route: IVPB; Infused Over: 1 me1 hrs; Site: right forearm; 15:59 Follow up: Response: No adverse reaction; IV Status: Completed infusion me1 18:03 Drug: NS 0.9% IV 1000 ml IV at 1000 ml once Route: IV; Rate: 1000 ml; Site: right me1 antecubital; 19:43 Follow up: IV Status: Infusion continued upon admission me1 18:03 Drug: Rocephin IV 1 grams IV at calculated rate once; Given slow IV push per pharmacy me1 instructions Route: IV; Rate: calculated rate; Site: right antecubital; 18:03 Follow up: Response: No adverse reaction me1 18:03 Follow up: IV Status: Completed infusion me1 19:43 Follow up: IV Status: Completed infusion me1 18:03 Drug: Zithromax IVPB 500 mg IVPB once over 1 hrs; mix in 250 mL NS Route: IVPB; Infused me1 Over: 1 hrs; Site: right antecubital; 19:03 Follow up: IV Status: Completed infusion; IV Intake: 250ml me1 Medication: 12:56 VIS not applicable for this client. me1 Intake: 19:03 IV: 250ml; Total: 250ml. me1 Outcome: 18:39 Decision to Hospitalize by Provider. kb 19:44 Admitted to Tele accompanied by tech, room 431, with chart, Report called to yonatan Walker RN 19:44 Condition: stable 19:44 Instructed on the need for admit, 20:15 Patient left the ED. lg3 Signatures: Dispatcher [employer] EDYasmin Ktae, OLEGARIO-Dante [employer] REPAIRER-Yola Phelps Lacie, RN RN lg3 Soledad Ruby, RN RN me1 Corrections: (The following items were deleted from the chart) 19:48 15:30 BP 112 / 36; Pulse 88bpm; Resp 22bpm; Pulse Ox 90% RA; me1 me1
[2023-10-04] MEDS ORDERED: HYDROCODONE/APAP 10/325 TAB PO PRN (19:22)
[2023-10-04] MEDS ORDERED: ALPRAZOLAM 1 MG PO PRN (19:22)
[2023-10-04] MEDS ORDERED: GLUCAGON 1 MG/VIAL IM PRN (19:23)
[2023-10-04] MEDS ORDERED: D50W 25 GM/50 ML SYRINGE IV PRN (19:23)
[2023-10-04 20:36] VITALS: BMI 33.8
[2023-10-04] MEDS: INSULIN REGULAR (HUMAN) 100 UNIT/ML SQ SCH (20:42)
[2023-10-04] MEDS ORDERED: ALPRAZOLAM 1 MG TABLET PO PRN (20:49)
[2023-10-04] MEDS ORDERED: D10W 125 ML IV PRN (21:07)
[2023-10-04] MEDS: IPRATROPIUM BROM 0.5MG/2.5ML NEB SCH (21:10)
[2023-10-04] MEDS: AMIODARONE HCL 200 MG TAB PO SCH (21:30)
[2023-10-04] MEDS: APIXABAN 2.5 MG TABLET PO SCH (21:30)
[2023-10-05] MEDS: IPRATROPIUM BROM 0.5MG/2.5ML NEB SCH ×2 (02:18→08:11)
[2023-10-05 06:22] LABS: Absolute Lymphocytes (CBC) 0.7 K/uL (0.7-4.9); Hematocrit 30.2 % (36.0-45.0); Lymphocytes % 10.4 % (15.3-44.8); MCV 89.6 fL (80-100); MPV 8.8 fL (7.6-11.3); Platelets 373 thou/uL (152-406); RBC Red Blood Cell Count 3.37 M/uL (3.86-4.86)
[2023-10-05 06:47] LABS: Albumin 2.6 g/dL (3.4-5.0); Bilirubin Total 0.4 mg/dL (0.2-1.0); Potassium 4.5 mEq/L (3.5-5.1)
[2023-10-05] MEDS: INSULIN REGULAR (HUMAN) 100 UNIT/ML SQ SCH ×2 (07:30→11:30)
[2023-10-05 08:20] VITALS: BP 103/51; TEMP 97.6
[2023-10-05] MEDS: APIXABAN 2.5 MG TABLET PO SCH (08:38)
[2023-10-05] MEDS: AMIODARONE HCL 200 MG TAB PO SCH (08:38)
[2023-10-05] MEDS ORDERED: AZITHROMYCIN IV 500 MG in NA CHLORIDE 0.9% 250 ML IVPB SCH (09:00)
[2023-10-05] MEDS ORDERED: CEFTRIAXONE 1,000 MG in NA CHLORIDE 0.9% 50 ML IVPB SCH (09:00)
[2023-10-05] MEDS ORDERED: hydroCHLOROthiazide 12.5 MG CAP PO SCH (09:00)
[2023-10-05] MEDS ORDERED: ASPIRIN 81 MG CHEWABLE TABLET PO SCH (09:00)
[2023-10-05] MEDS ORDERED: lisinopriL 10 MG TAB PO SCH (09:00)
[2023-10-05] MEDS ORDERED: DOCUSATE NA 100 MG CAP PO SCH (09:00)
--- NOTE | 2023-10-05 09:41 | P.PN ---
Subjective Date of Service: 10/05/23 Chief Complaint: SOB reports URI infection, productive cough, no reported fever history of COPD, - Physical Exam General: Alert, Oriented x3, Cooperative, Mild distress HEENT: Atraumatic, Normocephalic Neck: Supple Respiratory: Normal air movement, Crackles/rales Cardiovascular: Normal S1 S2, No gallops, No rubs, Edema Capillary refill: <2 Seconds Gastrointestinal: Soft and benign, W/out hepatosplenomegaly, No tenderness, No masses Musculoskeletal: No clubbing, Swelling Integumentary: No rashes Neurological: Normal speech, Normal strength at 5/5 x4 extr, Normal tone, Normal reflexes 2+, Normal affect Lymphatics: No axilla or inguinal lymphadenopathy Review of Systems per HPI Physical Examination - Vital Signs Temperature: 97.6 F Blood Pressure: 103/51 Pulse: 76 Respirations: 14 Pulse Ox (%): 96 - Studies Laboratory Data (last 24 hrs) 10/04/23 10/04/23 10/04/23 15:53 15:53 15:53 WBC 11.50 H Hgb 10.6 L Hct 32.6 L Plt Count 376 PT 13.1 H INR 1.20 APTT 35.4 Sodium 137 Potassium 3.7 BUN 16 Creatinine 1.08 H Glucose 163 H Total Bilirubin 0.6 AST 22 ALT 23 Alkaline Phosphatase 80 Microbiology Data (last 24 hrs): 10/04/23 15:53 Blood - Blood Anaerobic Blood Culture - Final 10/04/23 15:45 Blood - Blood Anaerobic Blood Culture - Final 10/04/23 16:29 Nasopharnyx Influenza Type A Antigen Screen - Final 10/04/23 16:29 Nasopharnyx Influenza Type B Antigen Screen - Final Assessment And Plan - Plan - Problems (Diagnosis) Community acquired pneumonia acute Acute hypoxic respiratory failure secondary to pneumonia acute Current Visit: No Status: Acute Monitor closely on telemetry Started on IV antibiotics ceftriaxone, azithromycin Bronchodilators as needed Influenza negative COVID test is negative as well X-ray findings noted Leukocytosis improving WBC 11.50, trending down 6.30 Sepsis without shock acute Current Visit: Yes Status: Acute Plan: Possibly from viral infection Started on IV antibiotic Lactic acidosis noted Will trend lactic acid levels IV hydration Will obtain cultures Change antibiotic as per sensitivity COVID-negative Lactic acidosis improving acute Current Visit: Yes Status: Acute Plan: Serial lactic acid levels Diabetes unknown control chronic Current Visit: No Status: Chronic Insulin sliding scale Accu-Chek before every meal and at bedtime Will get an A1c in a.m. Hypertension unknown control chronic Current Visit: No Status: Chronic Plan: Continue home medications and titrate as needed Patient has a history of TAVR Continue home medications including amiodarone History of A-fib RVR Chronic anticoagulation Restart Eliquis Discharge Plan: Home Plan to discharge in: 48 Hours repeat lacic 2.7-2.0 improving - Advance Directives Does patient have a Living Will: No Does patient have a Durable POA for Healthcare: No Discharge Plan: Home - Code Status/Comfort Care Code Status: Full Code Critical Care: No Time Spent Managing PTS Care (In Minutes): 35
[2023-10-05 10:40] VITALS: O2SAT 100
--- NOTE | 2023-10-05 10:50 | P.DS ---
Admission Date: 10/04/23 Discharge Date: 10/05/23 Disposition: ROUTINE DISCHARGE Discharge Condition: FAIR Reason for Admission: SOB Brief History of Present Illness: 83-year-old female with past medical history of hypertension, diabetes, hyperlipidemia, COPD, atrial fibrillation was brought to ER with generalized weakness and shortness of breath and upper respiratory tract symptoms. Patient denies any fever or chills. No chest pain . Has nasal stuffiness and cough which has been progressively worsening. Cough is productive with mucoid expectoration. Patient also started having shortness of breath, denies any nausea vomiting. She also had fall 2 days ago , denies any syncope. No loss of consciousness. Denies any headache. - Physical Exam General: Alert, Oriented x3, Cooperative, Mild distress HEENT: Atraumatic, Normocephalic Neck: Supple Respiratory: Normal air movement, equal unlabored Cardiovascular: Normal S1 S2, No gallops, No rubs, Edema Capillary refill: <2 Seconds Gastrointestinal: Soft and benign, W/out hepatosplenomegaly, No tenderness, No masses Musculoskeletal: No clubbing, Swelling Integumentary: No rashes Neurological: Normal speech, Normal strength at 5/5 x4 extr, Normal tone, Normal reflexes 2+, Normal affect Lymphatics: No axilla or inguinal lymphadenopathy Hospital Course: Patient presented with shortness of breath. Was noted to have pneumonia. Was treated with IV antibiotics, nebulizers. She request to discharge home, refuses to stay inpatient. She does not use home 02 Condition improved with treatment. Stable for discharge with follow-up appointment PCP in one week. . new prescriptions medications Levaquin, albuterol inhaler, take as prescribed . PROBLEM: pneumonia GOAL: Clear understanding of disease process INSTRUCTIONS: Physician Discharge Instructions: -DC IV and DC home -Follow-up with PCP in 1 to 2 weeks -Please call Dr. Gilliland at [phone] if any questions regarding hospital stay -Please call nursing station at [phone] if any nursing or medication questions -Return to the emergency room if symptoms worsen Diet: ADA, low sodium Activity: Fall precautions DME:none Date Ordered: Name of Company: [employer] Services Needed: None Date or Referral: IMMUNIZATION Influenza Vaccine Indicated: Influenza Vaccine Given: Date Given: Pneumonia Vaccine Indicated: Pneumonia Vaccine Given: Date Given: Vital Signs/Physical Exam: Temp Pulse Resp BP Pulse Ox 97.6 F 76 14 103/51 L 96 10/05/23 09:41 10/05/23 09:41 10/05/23 09:41 10/05/23 09:41 10/05/23 09:41 Laboratory Data at Discharge: WBC 6.30 thou/uL (4.3-10.9) 10/05/23 05:48 Hgb 10.2 g/dL (12.0-15.0) L 10/05/23 05:48 Hct 30.2 % (36.0-45.0) L 10/05/23 05:48 Plt Count 373 thou/uL (152-406) 10/05/23 05:48 PT 13.1 SECONDS (9.5-12.5) H 10/04/23 15:53 INR 1.20 10/04/23 15:53 APTT 35.4 SECONDS (24.3-36.9) 10/04/23 15:53 Sodium 136 mEq/L (136-145) 10/05/23 05:48 Potassium 4.5 mEq/L (3.5-5.1) D 10/05/23 05:48 BUN 15 mg/dL (7-18) 10/05/23 05:48 Creatinine 0.77 mg/dL (0.55-1.02) 10/05/23 05:48 Glucose 133 mg/dL (74-106) H 10/05/23 05:48 Total Bilirubin 0.4 mg/dL (0.2-1.0) 10/05/23 05:48 AST 19 U/L (15-37) 10/05/23 05:48 ALT 19 U/L (13-56) 10/05/23 05:48 Alkaline Phosphatase 71 U/L (45-117) 10/05/23 05:48 Home Medications: Lisinopril/Hydrochlorothiazide [Zestoretic 10-12.5 mg Tablet] 10 - 12.5 mg PO DAILY 12/10/14 Metformin HCl [Glucophage*] 500 mg PO DAILY 12/10/14 Simvastatin [Zocor*] 20 mg PO DAILY 12/10/14 Aspirin Chewable [Aspirin Chewable*] 81 mg PO DAILY 07/21/20 Docusate Sodium [Stool Softener] 100 mg PO DAILY 07/21/20 Amiodarone HCl [Cordarone*] 1 tab PO BID 08/26/23 Apixaban [Eliquis *] 1 tab PO BID 08/26/23 ALPRAZolam [Xanax*] 1 mg PO BID PRN 10/04/23 Amlodipine [Norvasc*] 10 mg PO DAILY 10/04/23 ALPRAZolam [Xanax*] 1 mg PO BIDP PRN tab 10/05/23 Albuterol Inhaler [Ventolin Inhaler*] 2 puff IH Q6H PRN 30 Days #1 inh 10/05/23 Hydrocodone 10/APAP 325 [Butler 10/325*] 1 tab PO TIDP PRN tab 10/05/23 hydroCHLOROthiazide [Hydrochlorothiazide*] 12.5 mg PO DAILY cap 10/05/23 levoFLOXacin [Levaquin] 750 mg PO DAILY 5 Days #5 tab 10/05/23 New Medications: levoFLOXacin [Levaquin] 750 mg PO DAILY 5 Days #5 tab Albuterol Inhaler [Ventolin Inhaler*] 2 puff IH Q6H PRN 30 Days #1 inh PRN Reason: Shortness Of Breath Diet: Low sodium Activity: Fall precautions Followup: NONE,NONE [Primary Care Provider] - Time spent managing pt's care (in minutes): 55
[2023-10-06] MEDS ORDERED: CEFTRIAXONE 1,000 MG in NA CHLORIDE 0.9% 50 ML IVPB SCH (09:00)
[2023-10-06] MEDS ORDERED: AZITHROMYCIN IV 500 MG in NA CHLORIDE 0.9% 250 ML IVPB SCH (09:00)
--- NOTE | 2023-10-06 17:03 | EKG ---
Test Date: 2023-10-04 Test Time: 15:33:35 Special Education Director: LISA MEASUREMENT RESULTS: Intervals: Rate: 92 CT: 158 QRSD: 148 QT: 440 QTc: 544 Regina: P: 75 CT: 158 QRS: -20 T: 112 INTERPRETIVE STATEMENTS: Normal sinus rhythm Left bundle branch block Abnormal ECG Compared to ECG 08/25/2023 14:10:55 No significant changes Electronically Signed On 10-06-23 16:58:11 [employer]T MAKER HELPER by Ziyad Hernández
== END 2023-10-05 13:12 | disposition home health service (06) ==
LOC: ER 12:34 → INTOOBSV 20:11 → 4TH 20:11
PROVIDERS: ADMIT Family Medicine; ATTEND Hospitalist
DX: J18.8 Other pneumonia, unspecified organism (principal); J96.01 Acute respiratory failure with hypoxia; A41.9 Sepsis, unspecified organism; I10 Essential (primary) hypertension; E11.9 Type 2 diabetes mellitus without complications; E78.5 Hyperlipidemia, unspecified; J44.9 Chronic obstructive pulmonary disease, unspecified; E87.21 Acute metabolic acidosis; I48.11 Longstanding persistent atrial fibrillation; Z79.01 Long term (current) use of anticoagulants; Z11.52 Encounter for screening for COVID-19
CPT/HCPCS: 93005; 87040 ×2; 85025 ×2; 36415; 85610; 82947 ×2; 83605 ×2; 85730; 80053 ×2; 87635; 87804 ×2; 70450; 71045; 94640; 94760 ×3; 99285; J3475; J7613 ×2; J7644 ×4; J7050 ×2; J7030; J0696 ×2; G0378 ×3

== ENCOUNTER 2023-11-16 15:10 | Inpatient (IN) | payer OTHER ==
--- OUTSIDE RECORDS SUMMARY | 2023-11-16 15:15 | XMS REPORT | Continuity of Care Document ---
Author Name Unknown Address [address] [facility] [address]. [address] [place] [address] [facility] thconnect Address [address] [facility]. [address] [place] [address] Care Team Providers Care Maintenance Machine Repairer Name Role Phone Pcp, Patient Does Not Have A Primary Care Physic kacy Doctor Unassigned, [place] Attending Clinician U Quita Peters MD Attending Clinician [phone] QUITA DOW Attending Clinician UnavailQUITA Polanco Attending Clinician Unavailchriss e Apolinar Rankin Attending Clinician Unavailchriss e GC_GCBZW_Kadiyala_S Attending Clinician UnavailCRISTIAN Kim Attending Clinician Unavailable Apolinar Rankin Admitting Clinician Unavailabl e GC_GCBZW_Kadiyala_S Admitting Clinician Unavaila CRISTIAN Hinds Admitting Clinician Unavailable Payers Payer Name Policy Type Policy Number Effective Date Expirati on Date Source [facility] - MEDICARE COMPLETE (MEDICARE REPLACEMENT HMO) [id number] Allergies, Adverse Reactions, Alerts Allergy Name Allergy Type Status Severity Reaction(s) Onset Date Inactive Date Treating Clinician Comments Source diphenhy dramine DA Active U NAUSEA/VOMIT ING 2022-09 00:00: 00 [facility] NO KNOWN ALLERGIE S Drug Class Active [facility] Social History Social Habit Start Date Stop Date Quantity Comments Source [facility] Social function 2023-09-19 00:00:00 2023-09-19 00:00:00 [facility] Sex Assigned At 1940 00:00:00 1940 00:00:00 [facility] Smoking Status Start Date Stop Date Source Tobacco smoking consumption unknown [facility] Vital Signs Vital Name Observation Time Observation Value Comments Kymberly butler Systolic blood pressure 2023-09-19 16:15:00 135 mm[Hg] [facility] Diastolic blood pressure 2023-09-19 16:15:00 63 mm[Hg] [facility] Heart rate 2023-09-19 16:15:00 87 /min [facility] Body height 2023-09-19 16:15:00 162.6 cm [facility] Body weight 2023-09-19 16:15:00 85.276 kg [facility] BMI 2023-09-19 16:15:00 32.27 kg/m2 [facility] Oxygen saturation in Arterial blood by Pulse oximetry 2023-09-19 16:15:00 95 /min [facility] Procedures Procedure Date / Time Performed Performing Clinicia n Source EXTERNAL PROVIDER RECORDS 2023-10-03 06:01:00 Doctor Unassigned, [place] [facility] NON-[facility] ORDERS 2023-09-19 06:01:00 Doctor Unass igned, [place] [facility] HOME HEALTH - OTHER 2023-08-11 06:01:00 Doctor U nassigned, [place] [facility] [id number] 2023-07-30 00:00:00 CHAAB.01 [facility] [id number] 2023-07-30 00:00:00 CHAAB.01 [facility] [id number] 2023-07-30 00:00:00 CHAAB.01 [facility] Encounters Start Date/Time End Date/Time Encounter Type Admission Type Attending Clinicians Care Facility Care Department Encounter ID Source 2023-10-03 00:00:00 2023-10-03 00:00:00 Orders Only Doctor Unassigned, [place] [facility] 1.2.840.114 350.1.13.10 4.2.7.2.686 [id number] [facility] 2023-09-19 09:30:00 2023-09-19 10:24:12 [facility] 1.2.840.114 350.1.13.10 4.2.7.2.686 [id number] [facility] 2023-09-19 09:30:00 2023-09-19 10:24:12 Outpatient R QUITA DOW [facility] [id number] [facility] 2023-09-19 00:00:00 2023-09-19 00:00:00 Orders Only Doctor Unassigned, [place] [facility] [id number] 350.1.13.10 4.2.7.2.686 [id number] [facility] 2023-08-11 00:00:00 2023-08-11 00:00:00 Orders Only Doctor Unassigned, [place] [facility] 1.2.840.114 350.1.13.10 4.2.7.2.686 [id number] [facility] 2023-07-26 03:56:00 2023-08-05 16:50:00 Inpatient JEFFRY Rankin Apolinar [facility] [id number] 10 [facility] 2023-07-23 00:00:00 2023-07-23 00:00:00 Outpatient GC_GCBZW_Ka diyala_S PRIV PRIV [id number] [facility] 2023-07-21 00:00:00 2023-07-21 00:00:00 Outpatient GC_GCBZW_Ka diyala_S PRIV PRIV [id number] [facility] 2017-03-18 14:00:00 2017-05-04 23:59:00 Outpatient [facility] [id number] Results Test Description Test Time Test Comments Results Result Co mments Source GLUCOSE [id number] 08:22:00* Test Item Value Reference Range Interpretation Comme nts GLUCOSE BEDSIDE (test code = GLUBED) 100 MG/DL 70-110 N Performed by cer tified mobile plant operators at [facility] BASIC METABOLIC [id number] 05:52:00* Test Item Value Reference Range Interpretation [...] code = CA) 8.3 mg/dL 8.0-10.5 N [id number] 05:52:00* Test Item Value Reference Range Interpretation Comme nts MAGNESIUM (test code = MAG) 1.90 mg/dL 1.6-2.6 N NOTE: NEW NORMAL RANGE CBC W/AUTO [id number] 05:43:00* Test Item Value Reference Range Interpretation [...] NRBC#) 0.00 x10 3/uL 0.0-0.1 N GLUCOSE [id number] 22:53:00* Test Item Value Reference Range Interpretation Comme nts GLUCOSE BEDSIDE (test code = GLUBED) 99 MG/DL 70-110 N Performed by cer tified mobile plant operators at [facility] GLUCOSE [id number] 16:38:00* Test Item Value Reference Range Interpretation Comme nts GLUCOSE BEDSIDE (test code = GLUBED) 123 MG/DL 70-110 H Performed by [employer] mobile plant operators at [facility] GLUCOSE [id number] 12:06:00* Test Item Value Reference Range Interpretation Comme nts GLUCOSE BEDSIDE (test code = GLUBED) 115 MG/DL 70-110 H Performed by [employer] mobile plant operators at [facility] POC ARTERIAL BLOOD [id number] 08:43:00* Test Item Value Reference Range Interpretation Comme nts POC ARTERIAL BLOOD GAS PH (t est code = POCPHA) 7.361 7.35-7.45 N POC ARTERIAL BLOOD GAS PCO2 (test code = SHLDTP2E) 36.3 mmHg 35.0-45 N POC TCO2 ARTERIAL (test code = POCTCO2) 21.6 POC ARTERIAL BLOOD GAS PO2 ( test code = PPRMR8M) 122.7 mmHg 80-100.0 H POC HCO3 ARTERIAL (test code = OQPWOM5H) 20.5 MMOL/L 22.0-26.0 L POC BASE EXCESS (test code = POCBEA) -4.9 MMOL/L -4.0-4.0 L POC O2 SATURATION (test code = POCO2S) 98.6 % 90-100 N GLUCOSE [id number] 07:40:00* Test Item Value Reference Range Interpretation Comme nts GLUCOSE BEDSIDE (test code = GLUBED) 109 MG/DL 70-110 N Performed by cer Jaco [employer] mobile plant operators at [facility] BASIC METABOLIC [id number] 06:43:00* Test Item Value Reference Range Interpretation [...] code = CA) 8.6 mg/dL 8.0-10.5 N [id number] 06:43:00* Test Item Value Reference Range Interpretation Comme nts MAGNESIUM (test code = MAG) 1.99 mg/dL 1.6-2.6 N NOTE: NEW NORMAL RANGE CBC W/AUTO [id number] 06:24:00* Test Item Value Reference Range Interpretation [...] NRBC#) 0.00 x10 3/uL 0.0-0.1 N GLUCOSE [id number] 21:25:00* Test Item Value Reference Range Interpretation Comme nts GLUCOSE BEDSIDE (test code = GLUBED) 151 MG/DL 70-110 H Performed by cer tified mobile plant operators at [facility] - US SOFT TISSUE [id number] 21:17:00 [facility] : 1940 Sex: F Name: EVELYN GIBSON [facility] Cayla Ferrara : 1940 Age/S: 83 / F [address] [place] [address] Unit #: [id number] Loc: [place] [address] Phys: Dayna Younger Acct: [id number] Dis Date: Status: ADM IN PHONE #: [phone] Exam Date: 08/03/20231737 FAX #: [phone] Reason: groin wounds bleeding. EXAMS: CPT CODE: [id number] US SOFT TISSUE TORSO 00789 EXAMINATION: - US SOFT TISSUE TORSO CLINICAL [...] evidence of pseudoaneurysm or active bleeding. at 2117 Reported andsigned by: Efrain Park M.D. CC: Apolinar Rankin MD; Dayna Younger Technologist: Elaine Zaman Trnscb Date/Time: 08/03/2023 (2116) [id number] Orig Print D/T: S: 08/03/2023 (2119) Probe: PAGE 1 Signed ReportGLUCOSE [id number] 17:12:00* Test Item Value Reference Range Interpretation Comme nts GLUCOSE BEDSIDE (test code = GLUBED) 128 MG/DL 70-110 H Performed by cer tified mobile plant operators at [facility] GLUCOSE [id number] 12:54:00* Test Item Value Reference Range Interpretation Comme nts GLUCOSE BEDSIDE (test code = GLUBED) 145 MG/DL 70-110 H Performed by cer tified mobile plant operators at [facility] BASIC METABOLIC [id number] 06:10:00* Test Item Value Reference Range Interpretation [...] code = CA) 8.6 mg/dL 8.0-10.5 N [id number] 06:10:00* Test Item Value Reference Range Interpretation Comme nts MAGNESIUM (test code = MAG) 2.26 mg/dL 1.6-2.6 NOTE: NEW NORMAL RANGE CBC W/AUTO [id number] 05:42:00* Test Item Value Reference Range Interpretation [...] NRBC#) 0.00 x10 3/uL 0.0-0.1 N GLUCOSE [id number] 20:52:00* Test Item Value Reference Range Interpretation Comme nts GLUCOSE BEDSIDE (test code = GLUBED) 166 MG/DL 70-110 H Performed by cer tified mobile plant operators at [facility] GLUCOSE [id number] 18:08:00* Test Item Value Reference Range Interpretation Comme nts GLUCOSE BEDSIDE (test code = GLUBED) 113 MG/DL 70-110 H Performed by cer tified mobile plant operators at [facility] GLUCOSE [id number] 13:08:00* Test Item Value Reference Range Interpretation Comme nts GLUCOSE BEDSIDE (test code = GLUBED) 118 MG/DL 70-110 H Performed by [employer] mobile plant operators at [facility] [id number] 03:58:00* Test Item Value Reference Range Interpretation Comme nts MAGNESIUM (test code = MAG) 1.84 mg/dL 1.6-2.6 N NOTE: NEW NORMAL RANGE CALCIUM [id number] 03:58:00* Test Item Value Reference Range Interpretation Comme nts CALCIUM IONIZED (test code = SANAZ) 1.11 MMOL/L 1.09-1.30 N BASIC METABOLIC [id number] 03:58:00* Test Item Value Reference Range Interpretation [...] code = CA) 8.8 mg/dL 8.0-10.5 N CBC W/AUTO [id number] 03:31:00* Test Item Value Reference Range Interpretation [...] NRBC#) 0.00 x10 3/uL 0.0-0.1 N GLUCOSE [id number] 16:35:00* Test Item Value Reference Range Interpretation Comme nts GLUCOSE BEDSIDE (test code = GLUBED) 111 MG/DL 70-110 H Performed by [employer]issa [employer] mobile plant operators at [facility] - XR CHEST 1 [id number] 15:52:00 [facility] 1940 Sex: F FAX: Apolinar Banuelos MD [phone] [place]: St: [facility] FAX: Tabitha Herring [phone] ----- Name: EVELYN GIBSON [facility] : 1940 Age/S: 83/F [address] [place] [address] Blvd Unit #: [id number] Loc: G.[address] [place] [address] Phys: Tabitha Herring Acct: [id number] Dis Date: Status: ADM IN PHONE #: [phone] Exam Date: 08/01/2023 1431 FAX #: [phone] Reason: afib RVR EXAMS: CPT CODE: [id number] XR CHEST 1 V 77062 Dictation location: C4. CHEST, FRONTAL VIEW HISTORY: afib RVR FINDINGS: Since 07/30/23, calcified granuloma seen in the right upper lobe. The lungs are otherwise clear. The heart size is normal. TAVR. Thoracic spondylosis. Left axillary node dissection. IMPRESSION: No evidence of acute cardiopulmonary disease. TAVR. at 1552 Reported and signed by: Sylvester Boothe M.D. CC: Apolinar Rankin MD; Tabitha Herring Technologist: RT Tahir(Viola) Trnariadne Date/Time/By: 08/01/2023 (8936) : By: [id number] Orig Print D/T: S: 08/01/2023 (8410) PAGE 1 Signed ReportGLUCOSE [id number] 11:32:00* Test Item Value Reference Range Interpretation Comme nts GLUCOSE BEDSIDE (test code = GLUBED) 129 MG/DL 70-110 H Performed by cer tified mobile plant operators at [facility] GLUCOSE [id number] 07:32:00* Test Item Value Reference Range Interpretation Comme nts GLUCOSE BEDSIDE (test code = GLUBED) 109 MG/DL 70-110 N Performed by cer tified mobile plant operators at [facility] BASIC METABOLIC [id number] 07:25:00* Test Item Value Reference Range Interpretation [...] code = CA) 9.1 mg/dL 8.0-10.5 N [id number] 07:25:00* Test Item Value Reference Range Interpretation Comme nts MAGNESIUM (test code = MAG) 1.90 mg/dL 1.6-2.6 N NOTE: NEW NORMAL RANGE CBC W/AUTO [id number] 07:02:00* Test Item Value Reference Range Interpretation [...] NRBC#) 0.00 x10 3/uL 0.0-0.1 N GLUCOSE [id number] 16:20:00* Test Item Value Reference Range Interpretation Comme nts GLUCOSE BEDSIDE (test code = GLUBED) 107 MG/DL 70-110 N Performed by cer tified mobile plant operators at [facility] GLUCOSE [id number] 11:36:00* Test Item Value Reference Range Interpretation Comme nts GLUCOSE BEDSIDE (test code = GLUBED) 178 MG/DL 70-110 H Performed by cer tified mobile plant operators at [facility] GLUCOSE [id number] 07:36:00* Test Item Value Reference Range Interpretation Comme nts GLUCOSE BEDSIDE (test code = GLUBED) 99 MG/DL 70-110 N Performed by [facility] tified mobile plant operators at [facility] BASIC METABOLIC [id number] 05:15:00* Test Item Value Reference Range Interpretation [...] code = CA) 9.1 mg/dL 8.0-10.5 N [id number] 05:15:00* Test Item Value Reference Range Interpretation Comme nts PHOSPHOROUS (test code = PHOS) 3.4 MG/DL 2.5-4.9 N [id number] 05:15:00* Test Item Value Reference Range Interpretation Comme nts MAGNESIUM (test code = MAG) 1.98 mg/dL 1.6-2.6 N NOTE: NEW NORMAL RANGE CALCIUM [id number] 05:15:00* Test Item Value Reference Range Interpretation Comme nts CALCIUM IONIZED (test code = SANAZ) 1.15 MMOL/L 1.09-1.30 N CBC W/AUTO [id number] 04:36:00* Test Item Value Reference Range Interpretation [...] NRBC#) 0.00 x10 3/uL 0.0-0.1 N GLUCOSE [id number] 20:44:00* Test Item Value Reference Range Interpretation Comme nts GLUCOSE BEDSIDE (test code = GLUBED) 170 MG/DL 70-110 H Performed by cer tified mobile plant operators at [facility] GLUCOSE [id number] 16:19:00* Test Item Value Reference Range Interpretation Comme nts GLUCOSE BEDSIDE (test code = GLUBED) 79 MG/DL 70-110 N Performed by cer tified mobile plant operators at [facility] GLUCOSE [id number] 13:57:00* Test Item Value Reference Range Interpretation Comme nts GLUCOSE BEDSIDE (test code = GLUBED) 88 MG/DL 70-110 N Performed by cer tified mobile plant operators at [facility] GLUCOSE [id number] 13:57:00* Test Item Value Reference Range Interpretation Comme nts GLUCOSE BEDSIDE (test code = GLUBED) 108 MG/DL 70-110 N Performed by cer tified mobile plant operators at [facility] - XR CHEST 1 [id number] 10:43:00 [facility] 1940 Sex: F FAX: Apolinar Banuelos MD [phone] [place]: St: [facility] FAX: Kameron Degroot NP [phone] ----- Name: EVELYN GIBSON [facility] [place] : 1940 Age/S: 83/F [address] [place] [address] Unit #: [id number] Loc: [place] [address] Phys: Kameron Degroot NP Acct: [id number] Dis Date: Status: ADM IN PHONE #: [phone] Exam Date: 07/30/2023 1041 FAX #: [phone] Reason: TAVR EXAMS: CPT CODE: [id number] XR CHEST 1 V 45110 EXAM: - XR CHEST 1 V INDICATION: TAVR Technique: Frontal view Location: T18 Findings and impression: No acute cardiopulmonary process seen. Lungs appear clear. No pleural effusion seen. Cardiomediastinal silhouette appears unremarkable. Osseous structures appear unremarkable. at 1043 Reported and signed by: Hussein Goldstein M.D. CC: Apolinar Rankin MD; Kameron Degroot NP Technologist: RT Favio(Viola) Trnscrd Date/Time/By: 07/30/2023 (2111) : By: [id number] Orig Print D/T: S: 07/30/2023 (5567) PAGE 1 Signed RjbrndQTD-[id number] 08:42:00 * Test Item Value Reference Range Interpretation Comme nts ACT-ISTAT (test code = ACTI) 276 SEC 74-137 H Performed by cer tified mobile plant operators at [facility] [id number] 08:23:00* Test Item Value Reference Range Interpretation Comme nts ACT-ISTAT (test code = ACTI) 287 SEC 74-137 H Performed by cer tified mobile plant operators at [facility] [id number] 03:41:00* Test Item Value Reference Range Interpretation Comme nts MAGNESIUM (test code = MAG) 1.97 mg/dL 1.6-2.6 N NOTE: NEW NORMAL RANGE BASIC METABOLIC [id number] 03:16:00* Test Item Value Reference Range Interpretation [...] To be done morning of Heart CathPROTHROMBIN [id number] 03:13:00* Test Item Value Reference Range Interpretation [...] Infarction (to prevent recurrent infarct). THROMBOPLASTIN TIME [id number] 03:13:00* Test Item Value Reference Range Interpretation Comme [facility] THROMBOPLASTIN TIME PARTIAL (test code = PTT) 40.3 Seconds 25.0-39.5 H Therapeutic Rang e: 50.4 - 88.3 Seconds Effective 01/05/2019 CBC W/AUTO [id number] 03:01:00* Test Item Value Reference Range Interpretation [...] of Heart Cath- CTA HEART W CN ART/[id number] 00:00:00[facility] : 1940 Sex: F Name: EVELYN GIBSON [facility] Cayla Ferrara : 1940 Age/S: 83 / F [address] [place] [address] Blvd Unit #: [id number] Loc: [place] [address] Phys: Heaven Patel NP Acct: [id number] Dis Date: Status: ADM IN PHONE #: [phone] Exam Date: 07/28/2023 1323 FAX #: [phone] Reason: herb for Exam: AV STENOSIS EXAMS: CPT CODE: [id number] CTA HEART W CN ART/GRAFTS 91633 Radiation Dose CTDIVOL = 2.12 (mGy): DLP = 44.64 (mGy-cm) Radiation Dose CTDIVOL = 2.12 (mGy): DLP = 44.64 (mGy-cm) Radiation Dose CTDIVOL = 2.12 (mGy): DLP = 44.64 (mGy-cm) PROCEDURE INFORMATION: Exam: CTA Heart And Coronary ArteriesWith Contrast Exam date and time: 07/28/2023 1:06 [...] optimization techniques: automated exposure control; mA and/or kVadjustment per patient size (includes targeted exams where dose is matched to clinical indication);or iterative reconstruction. Contrast material: ISO 370; Contrast [...] 1 Signed Report (CONTINUED) Name: EVELYN GIBSON [facility] Cayla Ferrara : 1940 Age/S: 83 / F [address] [place] [address] Blvd Unit #: [id number] Loc: [place] [address] Phys: Heaven Patel DRAWING OPERATOR Acct: [id number] Dis Date: Status: ADM IN PHONE #: [phone] Exam Date: 07/28/2023 1323 FAX #: [phone] Reason: herb for Exam: AV STENOSIS EXAMS: CPT CODE: [id number] CTA HEART W CN ART/GRAFTS 47340 (Continued) Annular/Subannular calcification: Moderate burden. There are [...] dominance. Pericardium: No thickening, calcification or effusion. IMPRESSION:Aortic root measurements provided for TAVR planning. Aortic annular area: 427 mm2 High risk aortic root features: None. PROCEDURE INFORMATION: Exam: CTA Chest With Contrast C TA Abdomen and Pelvis With Contrast Exam date and time: 07/28/2023 1:06 PM Age: 83 years old Clinical indication: Other: Av stenosis TECHNIQUE: Imaging protocol: Computed tomographic angiography of the chest with contrast. Exam focused on the arteries. Computed tomographic angiography of the abdomenand pelvis with contrast. Exam focused on the arteries. 3D rendering (Not supervised by radiologist): MIP and/or 3D reconstructed images were created by the technologist. Radiation optimization: All CT scans at this facility use at least one of these dose optimization techniques: automated exposurecontrol; mA and/or kV adjustment per patient size (includes targeted exams where dose is matched toclinical indication); or iterative reconstruction. Contrast material: ISO 370; Contrast volume: 100ml; Contrast route: INTRAVENOUS (IV); REPORTING DATA: Count of CT and Cardiac NM exams in prior 12months: This PAGE 2 Signed Report (CONTINUED) Name: EVELYN GIBSON [facility] : 1940 Age/S: 83 / F [address] [place] [address] Blvd Unit #: [id number] Loc: [place] [address] Phys: Heaven Patel DRAWING OPERATOR Acct: [id number] Dis Date: Status: ADM IN PHONE #: [phone] Exam Date: 07/28/2023 1323 FAX #: [phone] Reason: herb for Exam: AV STENOSIS EXAMS: CPT CODE: [id number] CTA HEART W CN ART/GRAFTS 03130 (Continued) patient has received 0 known CTs and 0 known cardiac nuclear medicine studies in the 12 months prior to the current study. COMPARISON: DX XR CHEST 2 V 07/28/2023 9:42 AM RADIATION DOSE METRICS: CTDI volume (mGy): 2.12 Total DLP (mGy-cm): 44.64 FINDINGS: VASCULATURE: Aorta: No aortic aneurysm. No aortic dissection. Celiac trunk and mesenteric arteries: No occlusion or signi ficant stenosis. Renal arteries: No occlusion or significant [...] Kidneys and ureters: Unremarkable. No solid mass. Nohydronephrosis. Bilateral renal cysts are present. Stomach and bowel: Unremarkable. No obstruction.No mucosal thickening. Intraperitoneal space: Unremarkable. No free air. No significant fluid collection. Urinary bladder: Unremarkable. No mass. Reproductive: Unremarkable as visualized. Lymph nodes: Unremarkable. No enlarged lymph nodes. Bones/joints: Unremarkable. No acute fracture. Soft tissues: Unremarkable. IMPRESSION: PAGE 3 Signed Report (CONTINUED) Name: EVELYN GIBSON [facility] : 1940 Age/S: 83 / F [address] [place] [address] Unit #: [id number] Loc: [place] [address] Phys: Heaven Patel NP Acct: [id number] Dis Date: Status: ADM IN PHONE #: [phone] Exam Date: 07/28/2023 1323 FAX #: [phone] Reason: herb for Exam: AV STENOSIS EXAMS: CPT CODE: [id number] CTA HEART W CN ART/GRAFTS 48191 (Continued) 1. Patent bilateral iliofemoral arteries without [...] (041) PAGE 4 Signed Report- CT ANGIO [id number] 00:00:00[facility] : 1940 Sex: F Name: EVELYN GIBSON [facility] [place] : 1940 Age/S: 83 / F [address] [place] [address] Blvd Unit #: [id number] Loc: [place] [address] Phys: Heaven Patel NP Acct: [id number] Dis Date: Status: ADM IN PHONE #: [phone] Exam Date: 07/28/2023 1324 FAX #: [phone] Reason: AV STENOSIS EXAMS: CPT CODE: [id number] CT ANGIO CHEST 27316 Radiation Dose CTDIVOL = 2.12 (mGy): DLP = 44.64 (mGy-cm) Radiation Dose CTDIVOL = 2.12 (mGy): DLP = 44.64 (mGy-cm) Radiation Dose CTDIVOL = 2.12 (mGy): DLP = 44.64 (mGy-cm) PROCEDURE INFORMATION: Exam: CTA Heart And Coronary Arteries With Contrast Exam date and time: 07/28/2023 1:06 PM Age: 83 years old Clinical indication: Other: Av stenosis TECHNIQUE: Tish ging protocol: CT angiography of the heart, coronary [...] is matched to clinical indication); or iterative reconstructi on. Contrast material: ISO 370; Contrast volume: 100 [...] 44.64 FINDINGS: PHASE OF CARDIAC CYCLE MEASUREMENTS OBTAINED:35% of the R-R interval Aortic valve morphology: Tricuspid Valve calcification: Severe burden. Aortic valve calcium score: 6161 AORTIC ANNULAR MEASUREMENTS: Annular area: 427 mm2 Perimeter: 75 mm Maxdiameter: 27 mm Min diameter: 21 mm PAGE 1 Signed Report (CONTINUED) Name: EVELYN GIBSON [facility] : 1940 Age/S: 83 / F [address] [place] [address] Blvd Unit #: [id number] Loc: [place] [address] Phys: Heaven Patel DRAWING OPERATOR Acct: [id number] Dis Date: Status: ADM IN PHONE #: [phone] Exam Date: 07/28/2023 1324 FAX #: [phone] Reason: AV STENOSIS EXAMS: CPT CODE: [id number] CT ANGIO CHEST 52978 (Continued) Annular/Subannular calcification: Moderate burden. There are [...] and Pelvis With Contrast Exam date and time:07/28/2023 1:06 PM Age: 83 years old Clinical [...] PAGE 2 Signed Report (CONTINUED) Name: EVELYN LR AMS [facility] : 1940 Age/S: 83 / F [address] [place] [address] Blvd Unit #: [id number]: [place] [address] Phys: Heaven Patel DRAWING OPERATOR Acct: [id number] Dis Date: Status: ADM IN PHONE #: [phone] Exam Date: 07/28/2023 1324 FAX #: [phone] Reason: AV STENOSIS EXAMS: CPT CODE: [id number] CT ANGIO CHEST 24189 (Continued) patient has received 0 known CTs [...] Minimal luminal diameter 8 mm at the rightcommon femoral artery. Left iliofemoral arteries: Mild calcification. Moderate tortuosity. Minimal l uminal diameter 8 mm at the left common [...] 3 Signed Report (CONTINUED) Name: EVELYN GIBSON [facility] : 1940 Age/S: 83 / F [address] [place] [address] Unit #: [id number] Loc: [place] [address] Phys: Heaven Patel NP Acct: [id number] Dis Date: Status: ADM IN PHONE #: [phone] Exam Date: 07/28/2023 1324 FAX #: [phone] Reason: AV STENOSIS EXAMS: CPT CODE: [id number] CT ANGIO CHEST 53055 (Continued) 1. Patent bilateral iliofemoral arteries without significant stenosis. 2. Mild emphysema. COMMENTS: Unless otherwise specified, incidental findings do not require dedicated imaging and follow-up. at 0418 Reported and signed by: Kar Camp M.D. 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 Standard prospective cardiac- gated CAC scoring protocol was used for image [...] volume: 100 ml; Contrast route: INTRAVENOUS (IV); [employer] logical intervention: None. REPORTING DATA: Count of CT and Cardiac NM exams in prior 12 months: This patient has received 0 known CTs and 0 known cardiac nuclear medicine studies in the 12 months prior to the current study. COMPARISON: DX XR CHEST 2 V 07/28/2023 9:42 AM RADIATION DOSE METRICS: CTDIvolume (mGy): 2.12 Total DLP (mGy-cm): 44.64 FINDINGS: PHASE OF CARDIAC CYCLE MEASUREMENTS OBTAINED: 35% of the R-R interval Aortic valve morphology: Tricuspid Valve calcification: Severe burden. Aortic valve calcium score: 6161 AORTIC ANNULAR MEASUREMENTS: Annular area: 427 mm2 Perimeter: 75 mm Max diameter: 27 mm Min diameter: 21 mm PAGE 1 Signed Report (CONTINUED) Name: EVELYN GIBSON [facility] : 1940 Age/S: 83 / F [address] [place] [address] Blvd Unit #: [id number] Loc: [place] [address] Phys: Heaven Patel DRAWING OPERATOR Acct: [id number] Dis Date: Status: ADM IN PHONE #: [phone] Exam Date: 07/28/2023 1324 FAX #: [phone] Reason: AV STENOSIS EXAMS: CPT CODE: [id number] CTA ABD PEL W CONT 71556 (Continued) Annular/Subannular calcification: Moderate burden. There are 2 annular calcifications below the noncoronary and left cusps. Mitral annular calcification: Heavy burden Height of left main above annular plane: 12 mm Height of RCA above annular plane: [address] ge above annular plane: 20 mm Sinus of [...] pelvis with contrast. Exam focused on the art eries. 3D rendering (Not supervised by radiologist): MIP [...] 2 Signed Report (CONTINUED) Name: EVELYN GIBSON [facility] : 1940 Age/S: 83 / F [address] [place] [address] Blvd Unit #: [id number] Loc: [place] [address] Phys: Heaven Patel DRAWING OPERATOR Acct: [id number] Dis Date: Status: ADM INPHONE #: [phone] Exam Date: 07/28/2023 1324 FAX #: [phone] Reason: AV STENOSIS EXAMS: CPTCODE: [id number] CTA ABD PEL W CONT 31392 (Continued) patient has received 0 known CTs [...] Renal arteries: No occlusion or significant stenosis. R ight iliofemoral arteries: Mild calcification. Moderate tortuosity. Minimal [...] 3 Signed Report (CONTINUED) Name: EVELYN GIBSON [facility] : 1940 Age/S: 83 / F [address] [place] [address] Blvd Unit #: [id number] Loc: [place] [address] Phys: Heaven Patel DRAWING OPERATOR Acct: [id number] Dis Date: Status: ADM IN PHONE #: [phone] Exam Date: 07/28/2023 1324 FAX #: [phone] Reason: AV STENOSIS EXAMS: CPT CODE:[id number] CTA ABD PEL W CONT 46550 (Continued) 1. Patent bilateral iliofemoral arteries without sign ificant stenosis. 2. Mild emphysema. COMMENTS: Unless otherwise specified, incidental findings do not require dedicated imaging and follow-up. at 0418 Reported and signed by: Kar Camp M.D. CC: Heaven Cooper; Apolinar Rankin MD Technologist:Dipak Dumont Jr, RT(R)(CT) CTDI: DLP: Trnscb Date/Time: 07/30/2023 (417) t.PELONR.CM29 Orig Print D/T: S: 07/30/2023 (7746) PAGE 4 Signed ReportPROTHROMBIN TDNJ8529-48-31 21:46:00* Test Item Value Reference Range Interpretation [...] Myocardial Infarction (to prevent recurrent infarct). GLUCOSE WIRCQHG0931-27-99 20:45:00* Test Item Value Reference Range Interpretation Comme [facility] GLUCOSE BEDSIDE (test code = GLUBED) 99 MG/DL 70-110 N Performed by cer [employer] operators at [facility] GLUCOSE WRGSQRW1484-27-71 16:01:00* Test Item Value Reference Range Interpretation Comme nts GLUCOSE BEDSIDE (test code = GLUBED) 112 MG/DL 70-110 H Performed by [employer] mobile plant operators at [facility] GLUCOSE CROAEVC7923-85-72 12:26:00* Test Item Value Reference Range Interpretation Comme nts GLUCOSE BEDSIDE (test code = GLUBED) 102 MG/DL 70-110 N Performed by [employer] mobile plant operators at [facility] GLUCOSE MRZYROL1657-71-82 08:15:00* Test Item Value Reference Range Interpretation Comme nts GLUCOSE BEDSIDE (test code = GLUBED) 109 MG/DL 70-110 N Performed by [employer] mobile plant operators at [facility] BASIC METABOLIC LZMLG5942-79-08 03:54:00* Test Item Value Reference Range Interpretation [...] code = CA) 9.0 mg/dL 8.0-10.5 N VPESGQIKZ4012-82-67 03:54:00* Test Item Value Reference Range Interpretation Comme nts MAGNESIUM (test code = MAG) 2.08 mg/dL 1.6-2.6 N NOTE: NEW NORMAL RANGE CBC W/AUTO [id number] 03:06:00* Test Item Value Reference Range Interpretation [...] NRBC#) 0.00 x10 3/uL 0.0-0.1 N GLUCOSE XNFKSPB0005-57-69 20:50:00* Test Item Value Reference Range Interpretation Comme nts GLUCOSE BEDSIDE (test code = GLUBED) 121 MG/DL 70-110 H Performed by cer tified mobile plant operators at [facility] GLUCOSE TABHNMY4660-23-20 17:11:00* Test Item Value Reference Range Interpretation Comme nts GLUCOSE BEDSIDE (test code = GLUBED) 116 MG/DL 70-110 H Performed by cer tified mobile plant operators at [facility] - XR CHEST 2 [id number] 11:48:00 [facility] 1940 Sex: F FAX: Heaven Patel NP [phone] [place]: St: [facility] FAX: Apolinar Banuelos MD [phone] Name: EVELYN GIBSON [facility] : 1940 Age/S: 83/F [address] [place] [address] Unit #: [id number] Loc: G.3352 [place] [address] Phys: Heaven Patel NP Acct: [id number] Dis Date: Status: ADM IN PHONE #: [phone] Exam Date: 07/28/2023 1011 FAX #: [phone] Reason: Emesis x2 EXAMS: CPT CODE: [id number] XR CHEST 2 V 51476 EXAM: - XR CHEST 2 V CLINICAL HISTORY: Emesis x2 TECHNIQUE: Frontal and Lateral views. COMPARISON: Chest radiograph 07/26/2023 LOCATION: C4 FINDINGS: Left chest wall surgical clips are present. The trachea appears normal. The mediastinum and cardiac silhouette are within normal limits for size. No confluent airspace opacities. No pleural effusions. Visualized soft tissues and osseous structures are grossly unremarkable. IMPRESSION: No acute cardiopulmonary process. at 1148 Reported and signed by: Torrey Narvaez D.O. CC: Heaven Patel DRAWING OPERATOR; Apolinar Rankin MD Technologist: RT Michele(Viola) Trnscrd Date/Time/By: 07/28/2023 (1148) : By: [email or web address] Orig Print D/T: S: 07/28/2023 (3566) PAGE 1 Signed ReportGLUCOSE URXFKYQ9849-33-85 11:30:00* Test Item Value Reference Range Interpretation Comme nts GLUCOSE BEDSIDE (test code = GLUBED) 142 MG/DL 70-110 H Performed by cer tified mobile plant operators at [facility] GLUCOSE FUFDFIQ5410-64-81 08:06:00* Test Item Value Reference Range Interpretation Comme nts GLUCOSE BEDSIDE (test code = GLUBED) 117 MG/DL 70-110 H Performed by [facility] tified mobile plant operators at [facility] COMPREHENSIVE METABOLIC RWGBK2402-12-62 05:58:00* Test Item Value Reference Range Interpretation [...] code = ALKP) 60 IUnit/L 20-125 N HYXIVGACH8517-42-65 05:58:00* Test Item Value Reference Range Interpretation Comme nts MAGNESIUM (test code = MAG) 2.07 mg/dL 1.6-2.6 N NOTE: NEW NORMAL RANGE CBC W/AUTO [id number] 05:29:00* Test Item Value Reference Range Interpretation [...] NRBC#) 0.00 x10 3/uL 0.0-0.1 N GLUCOSE WRJGIZW1759-36-64 20:32:00* Test Item Value Reference Range Interpretation Comme nts GLUCOSE BEDSIDE (test code = GLUBED) 156 MG/DL 70-110 H Performed by cer tified mobile plant operators at [facility] GLUCOSE QXCBKWY9121-26-77 17:11:00* Test Item Value Reference Range Interpretation Comme nts GLUCOSE BEDSIDE (test code = GLUBED) 115 MG/DL 70-110 H Performed by cer tified mobile plant operators at [facility] GLUCOSE VVZSXIP7157-54-74 12:00:00* Test Item Value Reference Range Interpretation Comme nts GLUCOSE BEDSIDE (test code = GLUBED) 134 MG/DL 70-110 H Performed by cer tified mobile plant operators at [facility] BASIC METABOLIC KCXPT6374-82-70 09:35:00* Test Item Value Reference Range Interpretation [...] code = CA) 9.2 mg/dL 8.0-10.5 N PPLJDQXYK8537-29-55 09:35:00* Test Item Value Reference Range Interpretation Comme nts MAGNESIUM (test code = MAG) 1.87 mg/dL 1.6-2.6 N NOTE: NEW NORMAL RANGE CBC W/AUTO [id number] 09:05:00* Test Item Value Reference Range Interpretation [...] REQUIRED (test code = MDIFF) NO GLUCOSE BFUYVIF3764-72-45 08:14:00* Test Item Value Reference Range Interpretation Comme nts GLUCOSE BEDSIDE (test code = GLUBED) 107 MG/DL 70-110 N Performed by cer tified mobile plant operators at [facility] GLUCOSE OWNLRGN9905-39-66 20:56:00* Test Item Value Reference Range Interpretation Comme nts GLUCOSE BEDSIDE (test code = GLUBED) 135 MG/DL 70-110 H Performed by cer tified mobile plant operators at [facility] GLUCOSE JMGOMQE4572-37-23 20:19:00* Test Item Value Reference Range Interpretation Comme nts GLUCOSE BEDSIDE (test code = GLUBED) 181 MG/DL 70-110 H Performed by cer tified mobile plant operators at [facility] GLUCOSE GCMVUQK0771-72-82 17:56:00* Test Item Value Reference Range Interpretation Comme nts GLUCOSE BEDSIDE (test code = GLUBED) 129 MG/DL 70-110 H Performed by cer tified mobile plant operators at [facility] UA RFLX MICR CULT IF PSIWGXZOG4842-03-32 13:06:00* Test Item Value Reference Range Interpretation [...] culture: RiskForSepsis-no oth srcSpecimen Description: CLEAN CATCHGLUCOSE LPSGZMV9524-53-79 12:39:00* Test Item Value Reference Range Interpretation Comme nts GLUCOSE BEDSIDE (test code = GLUBED) 142 MG/DL 70-110 H Performed by cer sandi mobile plant operators at [facility] HGBA1C%2023-07-26 11:31:00* Test Item Value Reference Range Interpretation Comme nts HGBA1C% (test code = HGBA1C%) 5.4 %A1C 4.8-6.0 N - XR CHEST 2 [id number] 11:24:00 [facility] 1940 Sex: F FAX: Heaven Patel NP [phone] [place]: St: ADM FAX: Apolinar Banuelos MD [phone] Name: EVELYN GIBSON [facility] : 1940 Age/S: 83/F [address] [place] [address] Unit #: [id number] Loc: G.4434 [place] [address] Phys: Heaven Patel NP Acct: [id number] Dis Date: Status: ADM IN PHONE #: [phone] Exam Date: 07/26/2023 1109 FAX #: [phone] Reason: Cardiac Surgery Pre Op EXAMS: CPT CODE:[id number] XR CHEST 2 V 00089 EXAM: - XR CHEST 2 V HISTORY: Cardiac Surgery Pre Op Location code:[id number]: None available time of interpretation. FINDINGS: PA [...] process. at 1124 Reported and signed by: Tyoa Ybarra M.D. CC: Heaven Cooper; Apolinar Rankin MD Technologist: Heaven Goff, RT(R); Lynn Red RT(R) Trnscrd Date/Time/By: 07/26/2023 (112) : By: [email or web address] [facility] Print D/T: S: 07/26/2023 (1127) PAGE 1 Signed Report- DUP EXTRACRANIAL ULH2818-21-98 11:12:00 [facility] : 1940 Sex: F Name: EVELYN GIBSON [facility] [place] : 1940 Age/S: 83 / F [address] [place] [address] Unit #: [id number] Loc: [place] [address] Phys: Heaven Patel DRAWING OPERATOR Acct: [id number] Dis Date: Status: ADM IN PHONE #: [phone] Exam Date: 07/26/2023 1105 FAX #: [phone] Reason: Cardiac Surgery Pre Op EXAMS: CPT CODE: [id number] DUP EXTRACRANIAL [place] 44327 EXAM: CAROTID DOPPLER INDICATION: Cardiac Surgery Pre [...] by: Tammie Francis M.D. CC: Heaven Patel DRAWING OPERATOR; Apolinar Rankin MD Technologist: Sonia Hathaway RDMS([place])(BR) Trnscb Date/Time: 07/26/2023 (1112) 16 Orig Print D/T: S: 07/26/2023 (1115) Probe: PAGE 1 Signed ReportCOMPREHENSIVE METABOLIC [id number] 10:47:00* Test Item Value Reference Range Interpretation [...] code = ALKP) 65 IUnit/L 20-125 N LIPID PROFILE (CORONARY RISK)2023-07-26 10:47:00* Test Item Value [...] = LDL) 52.0 mg/dL 0-100 N <100 CUNDPTO00 0-129 NEAR OPTIMAL/ABOVE NERGXYM012-579 EZZXRUYWVS534-545 HIGH>YU=795 VERY HIGH*Guidelines provided by the National Cholesterol EducationProgram Adult Treatment Panel III OMPASBFXB9071-74-18 10:47:00* Test Item Value Reference Range Interpretation Comme nts MAGNESIUM (test code = MAG) 1.83 mg/dL 1.6-2.6 N NOTE: NEW NORMAL RANGE B-TYPE NATRIURETIC JTGLUJQ5098-37-01 10:45:00* Test Item Value Reference Range Interpretation Comme nts B-TYPE NATRIURETIC PEPTIDE ( test code = BNP) 195.0 PG/ML 0-100 H PROTHROMBIN [id number] 10:36:00* Test Item Value Reference Range Interpretation [...] Infarction (to prevent recurrent infarct). THROMBOPLASTIN TIME NNVFFWA8775-64-91 10:36:00* Test Item Value Reference Range Interpretation Comme [facility] THROMBOPLASTIN TIME PARTIAL (test code = PTT) 35.2 Seconds 25.0-39.5 N Therapeutic Rang e: 50.4 - 88.3 Seconds Effective 01/05/2019 CBC W/AUTO [id number] 10:26:00* Test Item Value Reference Range Interpretation [...] NRBC#) 0.00 x10 3/uL 0.0-0.1 N GLUCOSE RZECTSO2439-71-61 09:15:00* Test Item Value Reference Range Interpretation Comme nts GLUCOSE BEDSIDE (test code = GLUBED) 137 MG/DL 70-110 H Performed by cer tified mobile plant operators at [facility] Notes Date/Time Note Provider Source 2023-08-09 20:10:00 [id number] sNQuz7sl86Qoa7z6QXDWRCd5FStyo SwYTVN2cFgY8jZh3//Us0/btX5234-04-41F92:10:00 [facility] ([facility])DT Operative NoteREPORT#:[id number] REPORT STATUS: SignedREPORT INITIALIZATION DATE:08/09/23 TIME: 2009 PATIENT: EVELYN GIBSON UNIT #: [id number]#: [id number] [address] AGE: 83 SEX: F ATTEND: Apolinar Rankni MDADM AUTHOR: Parmjit Houser MDREPT SERVICE DT/TIME: 07/30/232009* [...] left common femoral vein with 1 Perclose. Automation Architect: MD Rowdy Gleason MD CT surgeon: Thelma Rankin MD Anesthesia: monitored anesthesia care. Indications:Severe symptomatic aortic stenosis. Technique/Procedure:After informed consent was obtained patient was brought into the [employer] [employer] Specialist patient was prepped and draped in sterile fashion. Left common femoral artery was accessed ultrasound guided and using micropuncture technique under fluoroscopy guidance and a 5 Malawian sheath was inserted. The left common femoral vein was accessed using micropuncture technique and then an 8 Malawian long sheath was inserted. The right common femoral artery was visualized by ultrasound and accessed using micropuncture technique under fluoroscopy guidancea micropuncture technique then a 6 Malawian sheath was inserted, thne 2 Perclose were deployed, Then we placed a 14 Malawian Bliss E sheath. Then we went with 5 Malawian marked pigtail from the left common femoral [...] 23 mm Valve Disposition: PACU at 2020 [facility] #:[id number] OF REPORTOPOperative vvjxsa2380-64-74P81:10:00G.UFKH01294956-3741OMCue ilable for patient uvzcHSYULVJUGXHVSQ1600-78-73L41:20:47 [facility] 2023-08-08 15:35:00 [id number] z7cphSrUy/lRxn6MkcB7P/zBuD4x4 P0oFf0oEOdZyiCXqmNTZ+PUo2aS1217-57-42B23:35:70479 7-[address] [address] PATIENT NAME: EVELYN GIBSON ADMIT DATE: 07/26/23ACCOUNT NO: [id number] ROOM NO: G.3396 AGE: 83 REPORT TYPE: 360 - QUERY RESPONSE DOCUMENT SEX: F ADMITTING PHYSICIAN:Apolinar Rankin MD ATTENDING PHYSICIAN:Apolinar Rankin MD Provider Query QUERY TEXT: Condition General 360MD Query related questions should be directed to: [facility] Coding Query Helpline [Based on your clinical [...] PM at 1535 PATIENT NAME: EVELYN GIBSON noteG.[id number] for patient gtniRFNGNKPLDKKGEL9285-01-97C05:36:52 [facility] 2023-08-05 15:43:00 [id number] FTU8TsalK/H3o7QkRM5LVdPiSx7iY LxWfDvQD3fkTdnOoDfOauXCXzcZ1612-74-74S67:43:00 [facility] ProgREPORT#:[id number] REPORT STATUS: SignedREPORT INITIALIZATION DATE:08/05/23 TIME: 1543 PATIENT: EVELYN GIBSON UNIT #: [id number]#: [id number] [address] AGE: 83 SEX: F ATTEND: Apolinar Rankin MDADM AUTHOR: Dayna Younger PhysicREPT SERVICE DT/TIME: 08/05/23 [...] full range of motion, painless range of motionNeuro/MANAGER STAFFING: alert, oriented X 3Psychiatry: normal affect, normal judgment/insight Diagnosis, Assessment PlanFree Text A P:83-year-old female, PMHx HTN, diabetes on metformin, HLD, back pain, arthritis, vertigo for which she reportedly takes a Xanax, breast cancer left-sided mastectomy. Patient is transferred to us from [facility], patient of Dr. Hernández, and she reports chest pressure, burning sensation in her throat, sensation of nausea which started a few weeks ago after having a GI illness with vomiting. Patient was evaluated at [facility] for reports of chest pain, and findings of normal EKG, troponins within normal limits, BNP elevated at 1397, UA negative, chest x-ray stable, echocardiogram done with findings of severe aortic stenosis patient referred to us for TAVR evaluation. Patient reports cardiac cath done at [facility], however, we have no report of cardiac [...] and he agrees with plan for TAVR.-TAVR znsk-md-Rorhscurec usjapve-Geleueugdqaf-iqyfo restriction-Resume prior hospital meds 07/27/2023TAVR eval-Pending CT ymqpg-Dccaqjbliiik-uzbna restrictionLeukocytosis, afebrile, UA 1+ leukocyte Estrace. Urine [...] home today. at 1544 at 0847 RPT #:[id number] OF REPORTPRProgress korv4994-31-57N02:43:00G.LRIB46113694-1657DRBamzx able for patient okhlJQRLGFCAISIUIR9182-80-00M58:44:48 [facility] 2023-08-05 13:19:00 [id number] ynsKOqHIhWjtuCCrmQZRuR6Jo11r0 pArEArxvchqhd7lt9v17qEFqm4t0204-35-00C81:19:00 [facility] ([facility])Discharge SummaryREPORT#:[id number] REPORT STATUS: SignedREPORT INITIALIZATION DATE:08/05/23 TIME: 1318 PATIENT: EVELYN GIBSON UNIT #: [id number]#: [id number] [address] AGE: 83 SEX: F ATTEND: Apolinar Rankin [facility] AUTHOR: Roberto Sahni NPREPT SERVICE DT/TIME: 08/05/23 131* ALL edits or amendments must be made [...] inspection, no CVA tenderness, no midline vertebral tendNeuro/MANAGER STAFFING: alert, oriented X 3Skin: dry, intact Discharge Instructions PCPPCP:PCP: No Primary or Family Physician )( Discharge to: Home/Self Care Discharge InstructionsAdditional Discharge Routines: Attending Follow-Up, [employer] Feeder Follow-Up)( Diet: Resume Home Diet/Feeds Follow-up AppointmentsAttending Physician: Attending Physician: Apolinar Rankin MD Ieghloxboo provider 1: Provider 1: Apolinar Rankin MD Specialty: Thoracic Surgery Consult follow up timeframe: In 2-3 weeks at 1438 at 1445 RPT #:[id number] OF REPORTDSDischarge zwvxkzf1141-68-61R93:19:00G.MSOV96961906-7323PIVj ailable for patient leytAFIACLDZDIXAMH7264-62-91E49:40:06 [facility] 2023-08-05 09:13:00 [id number] 9AUcV0zV6KoNzGKk55m6pIBb0DKnO TDXM9AgLzswnvT1KbZZSNLH0a3x5541-48-42O20:13:00 [facility] ([facility])Cardiology Progress NoteREPORT#:[id number] REPORT STATUS: SignedREPORT INITIALIZATION DATE:08/05/23 TIME: 912 PATIENT: EVELYN GIBSON UNIT #: [id number]#: [id number] ROOM/BED: [facility]-1DOB: [birth year] AGE: 83 [...] Right groin site: ecchymosis, hematoma (small)Musculoskeletal: normal inspectionNeuro/MANAGER STAFFING: alert, oriented X 3Skin: dry, intact, normal [...] % (Auto) (14.0 - 32.0 %) 17.8 [place] % (Auto) (4.8 - 9.0 %) 11.1 H Eos % (Auto) (0.3 - 3.7 %) 2.2 Baso % (Auto) (0.0 - 2.0 %) 0.5 Neut # (Auto) (2.0 - 7.6 x10 3/uL) 6.84 Lymph # (Auto) (1.0 - 3.8 x10 3/uL) 1.82 Brewster # (Auto) (0.1 - 0.8 x10 3/uL) [...] taper her amiodarome to 200 mg daily* WKO6PB5-DEWx score 3, Eliquis 2.5 mg BID* EP consult * 08/04: 12 lead EKG still with LBBB* will arrange for cardiac event monitor outpatient Ok to [place] home with Home health. Outpatient follow-up with Dr. Hernández. at 1010 at 1445 [facility] #:[id number] OF REPORTPRProgress xluz2745-19-34K51:13:00G.QJTP46652438-4928DUZsjhz able for patient nerrNPWWZSAGNVBITT0518-68-77G87:10:49 [facility] 2023-08-04 13:37:00 [id number] rNhZU2jM1bPSAIJ66bTk5ua3ZoPyw zyZqZNy2fte+gHCCYlxgzC8cVo56259-19-18H45:37:65154 3-[address] [place] [address] PATIENT NAME: EVELYN GIBSON ADMIT DATE: 07/26/23ACCOUNT NO: [id number] ROOM NO: [facility] AGE: 83 REPORT TYPE: eELECTROCARDIOGRAM REPORT SEX: F ADMITTING PHYSICIAN:Apolinar Rankin MD ATTENDING PHYSICIAN:Apolinar Rankin MD Order:[id number] Reason : lbbb Test Date/Time Stamp:FriAug 04 [...] for LVH, may be normal variant ( [place] product )T wave abnormality, consider inferolateral ischemiaAbnormal ECGWhen compared with ECG of 02-AUG-2023 08:24,No changesConfirmed by MD FRANKS GERARD ([id number]) on 08/04/2023 8:56:14 PM Referred By: Apolinar Rankin Confirmed by:KORTNEY FRANKS MD at 2056 PATIENT NAME: EVELYN GIBSON .[id number] AVAvailable for patient vonfSJSRMEVQGFSJFT8430-54-36N62:56:43 [facility] 2023-08-04 12:17:00 [id number] Il2BtxVPpqmpU49mTPoALP1hXKfaE MvB38D0yEUTRTt04J66r+oam3Tr4977-21-75U65:17:00 [facility] Center[facility] Progress NoteREPORT#:[id number] REPORT STATUS: SignedREPORT INITIALIZATION DATE:08/04/23 TIME: 1216 PATIENT: EVELYN GIBSON UNIT #: [id number]#: [id number] [address] AGE: 83 SEX: F ATTEND: Apolinar Rankin [facility] AUTHOR: Tabitha Herring AGACNPREPT SERVICE DT/TIME: 08/04/231216* ALL edits or amendments [...] no urinary catheterLower extremity: LE assessment: no edemaNeuro/MANAGER STAFFING: alert, oriented X 3Skin: dry, intact, normal [...] % (Auto) (14.0 - 32.0 %) 15.7 Brewster % (Auto) (4.8 - 9.0 %) 11.1 H Eos % (Auto) (0.3 - 3.7 %) 2.0 Baso % (Auto) (0.0 - 2.0 %) 0.4 Neut # (Auto) (2.0 - 7.6 x10 3/uL) 7.92 H Lymph # (Auto) (1.0 - 3.8 x10 3/uL) 1.78 Brewster # (Auto) (0.1 - 0.8 x10 3/uL) [...] taper her amiodarome to 200 mg daily* [id number]-SQRs score 3, Eliquis 2.5 mg BID* EP consult * 08/04: 12 lead EKG still with LBBB Ok to transfer out of [facility] home in AM. at 1401 at 1443 RPT #[id number] OF REPORTPRProgress [id number]:[id number] able for patient [id number]:01:42 [facility] 2023-08-04 09:28:00 [id number] a5DXyCPrH0aE2zU+hP1ADqOAsTlcz iBqNCip+D/OAflWE63Y1gvSaiL58308-24-81X78:28:00 [facility] CenterCard[facility] ProgREPORT#:[id number] REPORT STATUS: SignedREPORT INITIALIZATION DATE:08/04/23 TIME: 927 PATIENT: EVELYN GIBSON UNIT #: [id number]#: [id number] ROOM/BED: 3396-1DOB: [birth year] AGE: 83 SEX: F ATTEND: Apolinar Rankin [facility] AUTHOR: Dayna Younger PhysicREPT SERVICE DT/TIME: 08/04/23 0928* ALL edits or amendments must be made [...] full range of motion, painless range of motionNeuro/MANAGER STAFFING: alert, oriented X 3Psychiatry: normal affect, normal judgment/insight Diagnosis, Assessment PlanFree Text A P:83-year-old female, PMHx HTN, diabetes on metformin, HLD, back pain, arthritis, vertigo for which she reportedly takes a Xanax, breast cancer left-sided mastectomy. Patient is transferred to us from [facility], patient of Dr. Hernández, and she reports chest pressure, burning sensation in her throat, sensation of nausea which started a few weeks ago after having a GI illness with vomiting. Patient was evaluated at [facility] for reports of chest pain, and findings of normal EKG, troponins within normal limits, BNP elevated at 1397, UA negative, chest x-ray stable, echocardiogram done with findings of severe aortic stenosis patient referred to us for TAVR evaluation. Patient reports cardiac cath done at [facility], however, we have no report of cardiac [...] and he agrees with plan for TAVR.-TAVR zeoe-sd-Hmirhibgjy zyhibbr-Uotgtjbcoyop-jcftc restriction-Resume prior hospital meds 07/27/2023TAVR eval-Pending CT vnhhn-Yybcsprmkxri-kfvxi restrictionLeukocytosis, afebrile, UA 1+ leukocyte Estrace. Urine [...] with Cardiology and EP. at 1202 at 1830 RPT #:[id number] OF REPORTPRProgress vzzp7335-60-98G85:28:00G.QCUM92928783-1963FKOmmbe able for patient fcvzOXABCGTQBUMLBH7700-11-60D92:03:11 [facility] 2023-08-04 09:06:00 [id number] 2gBtAw86GTXuf60hEcAxHaL394WAB 8anQ9MKEIbeOL8uDSUTB56VYX687479-71-88N39:06:00 [facility] ([facility]) Progress NoteREPORT#:[id number] REPORT STATUS: SignedREPORT INITIALIZATION DATE:08/04/23 TIME: 905 PATIENT: EVELYN GIBSON UNIT #: [id number]#: [id number] [address] [birth year] AGE: 83 SEX: F ATTEND: [...] non-tenderExtremities: dry, moves allMusculoskeletal: full range of motionNeuro/MANAGER STAFFING: alert, oriented X 3Skin: dry, intactTelemetry Interpretation:Sinus [...] Barney MD at 1228 at 1456 RPT #:[id number] OF REPORTPRProgress jptw5799-67-58D47:06:00G.ZBFD19675325-7731IYTuqkj able for patient mjdfGBSSJSQFTQSUCS4086-66-92B66:29:04 [facility] 2023-08-03 11:07:00 [id number]/R Bp+bkfcuqXK8AlwuHU4IBPkD6iigJ dHEdFJ//7V7QJzkfYh4Rd4k17I04499-07-05M21:07:00 [facility] ([facility])Cardiology Progress NoteREPORT#:[id number] REPORT STATUS: SignedREPORT INITIALIZATION DATE:08/03/23 TIME: 1107 PATIENT: EVELYN GIBSON UNIT #: [id number]#: [id number] ROOM/BED: 3301-1DOB: [birth year] AGE: 83 SEX: F ATTEND: Apolinar Rankin MDADM AUTHOR: Derrick Tran MDREPT SERVICE DT/TIME: 08/03/23 1107* ALL edits or amendments must be made on the electronic/computer document * SubjectiveChief complaint:SOBHPI:A very pleasant 83-year-old female patient status post breast cystectomy for breast cancer in the past hypertension dyslipidemia. She has been having progressive shortness of breath on exertion as well as chest pressure on exertion she was [facility] [place] [facility] [place] she was found out to have severe aortic stenosis onthe echocardiogram. She had cardiac catheterization report but would not have access to the results. Dr. Hernández is her playground attendant Review of SystemsRespiratory:Denies: BALBUENA (dyspnea on exertion), [...] 0915 AC IV 10/28 0914 Blood Formation,Coagulation Sig/Vishnu Start time Last [...] 0904 Amiodarone HCl 450 MG ASDIR 07/31 08 CKD 08/02 Dextrose/Water 250 ML IV 10/29 [...] Sodium Chloride 500 ML ASDIR PRN 07/30 915 AC IV 10/28 913 Dextrose/Water 125 ML ASDIR PRN 07/26 900 CKD IV 10/24 0859 Dextrose/Water 250 ML ASDIR PRN 07/26 900 CKD IV 10/24 0859 Sodium Chloride 10 ML ASDIR 07/26 0745 AC IV 10/24 0744 Gastrointestinal Drugs Sig/Vishnu Start time Last Medication Dose Route Stop Time Status Admin Polyethylene Glycol 17 GM DAILY 08/02 1015 AC 08/02 PO 10/31 1014 1206 Docusate Sodium 100 MG BID 07/26 900 AC 08/03 PO 10/24 0859 0904 Al [...] 1211 Glucagon 1 MG ASDIR PRN 07/26 900 AC IM 10/24 0859 Skin And Mucous [...] no urinary catheterLower extremity: LE assessment: no edemaNeuro/MANAGER STAFFING: alert, oriented X 3Skin: dry, intact, normal [...] % (Auto) (14.0 - 32.0 %) 16.6 Brewster % (Auto) (4.8 - 9.0 %) 11.6 H Eos % (Auto) (0.3 - 3.7 %) 1.9 Baso % (Auto) (0.0 - 2.0 %) 0.3 Neut # (Auto) (2.0 - 7.6 x10 3/uL) 7.20 Lymph # (Auto) (1.0 - 3.8 x10 3/uL) 1.74 Brewster # (Auto) (0.1 - 0.8 x10 3/uL) [...] BID* Lovenox 1 mg/kg x1 dose today* NFQ5WP3-ANMo score 3* EP consult * recurrent afib [...] AVOID-NO LONGER IN LBBB at 1140 RPT #:[id number] OF REPORTPRProgress tqgh3468-71-29G15:07:00G.STPD05987522-1225RCVvoff able for patient ysxwLTYHJOCIGYOTJT6073-06-87Z17:41:04 [facility] 2023-08-03 10:10:00 [id number] 6qrSuvnZn6FVjUyKj9rnroM7RAUKk IKzbLjZMW6VmPwHtcPapiFuN/YR8951-91-01W08:10:00 [facility] CenterCardioth[facility] Surgery ProgREPORT#:[id number] REPORT STATUS: SignedREPORT INITIALIZATION DATE:08/03/23 TIME: 1010 PATIENT: EVELYN GIBSON UNIT #: [id number]#: [id number] ROOM/BED: 3301-1DOB: [birth year] AGE: 83 SEX: F ATTEND: Apolinar Rankin MDADM AUTHOR: Dayna Younger PhysicREPT SERVICE DT/TIME: 08/03/23 [...] full range of motion, painless range of motionNeuro/MANAGER STAFFING: alert, oriented X 3Psychiatry: normal affect, normal judgment/insight Diagnosis, Assessment PlanFree Text A P:83-year-old female, PMHx HTN, diabetes on metformin, HLD, back pain, arthritis, vertigo for which she reportedly takes a Xanax, breast cancer left-sided mastectomy. Patient is transferred to us from [facility], patient of Dr. Hernández, and she reports chest pressure, burning sensation in her throat, sensation of nausea which started a few weeks ago after having a GI illness with vomiting. Patient was evaluated at [facility] for reports of chest pain, and findings of normal EKG, troponins within normal limits, BNP elevated at 1397, UA negative, chest x-ray stable, echocardiogram done with findings of severe aortic stenosis patient referred to us for TAVR evaluation. Patient reports cardiac cath done at [facility], however, we have no report of cardiac [...] and he agrees with plan for TAVR.-TAVR xmkd-vw-Nbszlogwaq yxcukik-Zviwekfpgpnx-eelpe restriction-Resume prior hospital meds 07/27/2023TAVR eval-Pending CT sauxc-Yvcharbdhuid-dpnbm restrictionLeukocytosis, afebrile, UA 1+ leukocyte Estrace. Urine culture pending. Empiric bactrimPatient with choking episode on food today, patient states as she did not have her dentures in. -- -Pur ed diet, chest x-rayDiscussed with Dr. Rankin 07/31/23PO 1 S/P TAVRPatient went into a fib-RVR. [...] Continue supportive care. at 1012 at 0934 [facility] #:[id number] OF REPORTPRProgress cnln1807-34-24B95:10:00G.QWKG34908892-8864NTNaytu able for patient osoxPJNAJRRNPEOPMP2380-09-07C26:12:30 [facility] 2023-08-03 10:05:00 [id number] 3yCEiKp5VZASwyNIMMb60CoMGWglN pOSzUChyeyavyR2p2Qis2XB7cB26472-42-95D97:05:63173 2-[address] [place], [place] [address] PATIENT NAME: EVELYN GIBSON ADMIT DATE: 07/26/23ACCOUNT NO: [id number] ROOM NO: G.3301 AGE: 83 REPORT TYPE: eECHOCARDIOGRAM REPORT SEX: F ADMITTING PHYSICIAN:Apolinar Rankin MD ATTENDING PHYSICIAN:Apolinar Rankin MD *[address], [place] [address]Zrjss: [phone]: [phone] Limited Transthoracic Echocardiogram Patient: Paul Gibsonudy Date: 08/01/2023 BP: 133 / 61 [id number] 1940 Age: 83 Height: 62 in / 157.5 cmAccession#: [id number] Gender: F Weight: 180.6 lb / 82.1 kgBMI/BSA: 33.1 kg/m 2 / 1.83 m 2 *Ordering Physician: * Tabitha Herring *Interpreting Physician: * Parmjit Houser MD*Acid Dipper: * Edilma Herrera Indications: POST TAVR. Study data: Transthoracic echocardiogram, [...] ---- D Pulmonic valve Value 07/31/2023 Ref LA v, ED 0.65 m/sec 2.38 ---- Tricuspid [...] 10:05 at 1005 PATIENT NAME: EVELYN GIBSON :05:0 0G.[id number] for patient zeueWOHXVQLBKLXAYH5540-10-77F35:06:20 [facility] 2023-08-02 11:49:00 [id number]/xkZXgq [facility]+OA1cIOaGQ+mCF5zVtuTeC9NRW 6/WiGeYv6VgYYxCRCEUV9MGRC780651-50-95D45:49:00 [facility] CenterCard[facility] Progress NoteREPORT#:[id number] REPORT STATUS: SignedREPORT INITIALIZATION DATE:08/02/23 TIME: 1149 PATIENT: EVELYN GIBSON UNIT #: [id number]#: [id number] [address] [birth year] AGE: 83 SEX: F ATTEND: [...] pressure on exertion she was admitted [facility] [place] [facility] [place] after she was found out to have severe aortic stenosis onthe echocardiogram. She had cardiac catheterization report but would not have access to the results. Dr. Hernández is her playground attendant Review of SystemsRespiratory:Denies: BALBUENA (dyspnea on exertion), [...] no urinary catheterLower extremity: LE assessment: no edemaNeuro/MANAGER STAFFING: alert, oriented X 3Skin: dry, intact, normal [...] % (Auto) (14.0 - 32.0 %) 16.6 Brewster % (Auto) (4.8 - 9.0 %) 11.6 H Eos % (Auto) (0.3 - 3.7 %) 1.9 Baso % (Auto) (0.0 - 2.0 %) 0.3 Neut # (Auto) (2.0 - 7.6 x10 3/uL) 7.20 Lymph # (Auto) (1.0 - 3.8 x10 3/uL) 1.74 Brewster # (Auto) (0.1 - 0.8 x10 3/uL) [...] BID* Lovenox 1 mg/kg x1 dose today* RAK8XR3-KUYa score 3* EP consult * recurrent afib RVR, rebolus amio, up amio gtt to 1 mg Get PT/OTMobilize OOB Keep in CCU 08/02/23:-S/P TAVR-POST OP A FIB, WAS STARTED ON IV AMIOD + BOLUS AT 8;30 AM, IN NSR-LBBB, POST TAVR, RESOLVED, UNLIKLEY NEED FOR PERMANENT PACEMAKER-CONTINUE AMIOD FOR MOW-EP FOLLOWING at 1107 RPT #:[id number] OF REPORTPRProgress lfro8297-98-50C18:49:00G.KQNL46623513-1844ZMYzjwu able for patient cwgoUYRQWBISPHNPDH6184-08-79O54:08:00 [facility] 2023-08-02 11:31:00 [id number] 3mWrSNws1mMOxqvMWN0FHcpTXW7sa py1QhSWpd6+96fzouRNbd9A/DA/4760-37-28B14:31:00 [facility] ([facility])Clinical NoteREPORT#:[id number] REPORT STATUS: SignedREPORT INITIALIZATION DATE:08/02/23 TIME: 1130 PATIENT: EVELYN GIBSON UNIT #: [id number]#: [id number] [address] [birth year] AGE: 83 SEX: F ATTEND: Apolinar Rankin MDADM AUTHOR: Madelyn Caballero NPREPT SERVICE DT/TIME: 08/02/23 1131* ALL edits or amendments must be made on the electronic/computer document * Clinical NoteNote:pt seen and examined - QCUQ5nrhc RVR converted last night with amio bolus x1. on BB/statin/plavix/eliquishemodynamically stable on RAtolerating diet, bowel regimen with miralax/colacenegative balanceWBC count stable, afebrilewill cont to monitor peripherally. [place] when cleared by CTSplease notify ICC for any critical care needs [phone] Vital Signs Date Temp Pulse Resp B/P B/P Mean Pulse Ox FiO2 08/01-08/02 97.5-98.2 59-70 15-25 108-133/52-63 73-90 93-99 at 1139 RPT #:[id number] OF REPORTCLClinical xcnp7651-02-79Q52:31:00G.KJLW91284366-2858GSThaaw able for patient abqxXEQITTCXCHOKRZ6387-46-59A70:39:28 [facility] 2023-08-02 08:24:00 [id number] WyNYQzdM/9/u8YoGc73nCFWZ6H//q ExA0WKRl89gXaaMXNWuTN09+Iye8773-94-20F18:24:04418 2-0027 [place] [address] PATIENT NAME: EVELYN GIBSON ADMIT DATE: 07/26/23ACCOUNT NO: [id number] ROOM NO: G.3301 AGE: 83 REPORT TYPE: eELECTROCARDIOGRAM REPORT SEX: F ADMITTING PHYSICIAN:Apolinar Rankin MD ATTENDING PHYSICIAN:Apolinar Rankin MD Order:[id number] Reason : , Test Date/Time Stamp:FriAug 02 [...] for LVH, may be normal variant ( [place] product )Marked T wave abnormality, consider anterolateral ischemiaAbnormal ECGWhen compared with ECG of 01-AUG-2023 09:31,Significant changes have occurredConfirmed by MD FRANKS GERARD ([id number]) on 08/03/2023 9:26:13 PM Referred By: Apolinar Rankin Confirmed by:KORTNEY FRANKS MD at 2126 PATIENT NAME: EVELYN GIBSON .[id number] AVAvailable for patient ketoZLDWLNXKBZHVFR4620-03-29J99:26:41 [facility] 2023-08-02 06:10:00 [id number] r7roeouZR8mzUYzqW+15fqSLwDMRa QRImwd1BewHgK0LnqQjMfFc6JaS1590-81-52J59:10:00 [facility] ([facility])Cardiothoracic Surgery ProgREPORT#:[id number] REPORT STATUS: SignedREPORT INITIALIZATION DATE:08/02/23 TIME: 609 PATIENT: EVELYN GIBSON UNIT #: [id number]#: [id number] [address] AGE: 83 SEX: F ATTEND: [...] full range of motion, painless range of motionNeuro/MANAGER STAFFING: alert, oriented X 3Psychiatry: normal affect, normal judgment/insight Diagnosis, Assessment PlanFree Text A P:83-year-old female, PMHx HTN, diabetes on metformin, HLD, back pain, arthritis, vertigo for which she reportedly takes a Xanax, breast cancer left-sided mastectomy. Patient is transferred to us from [facility], patient of Dr. Hernández, and she reports chest pressure, burning sensation in her throat, sensation of nausea which started a few weeks ago after having a GI illness with vomiting. Patient was evaluated at [facility] for reports of chest pain, and findings of normal EKG, troponins within normal limits, BNP elevated at 1397, UA negative, chest x-ray stable, echocardiogram done with findings of severe aortic stenosis patient referred to us for TAVR evaluation. Patient reports cardiac cath done at [facility], however, we have no report of cardiac [...] and he agrees with plan for TAVR.-TAVR vzaf-sg-Emqbmzsamy yelychl-Xvsequfcpwzq-mlfyj restriction-Resume prior hospital meds 07/27/2023TAVR eval-Pending CT hlfpi-Ipkqesgblzem-neohh restrictionLeukocytosis, afebrile, UA 1+ leukocyte Estrace. Urine [...] as tolerated. Echo done. Continue supportive care 08/02/23PO 3S/P TAVRa fib, EP consulted. Echo done, reviewed by cardiology. Patient has been out of bed with PT/OT.Patient reportedly had oozing from bilateral groins incisions last night.Patient seen and examined by . Groins appear soft. No evidence of active bleeding. Continue to monitor per Dr. Curtis. EP following for rhythm managementContinue supportive care. at 0842 at 1725 RPT #:[id number] OF REPORTPRProgress jjri4778-76-76E05:10:00G.KAJF62614852-0905IMCtlfj able for patient akgcSPKERDVHQGPSCP7270-62-68L65:42:30 [facility] 2023-08-01 09:31:00 [id number] HfnBLzJ8PJEEYeioAbS+RAPUt4YI4 hmcrWJtrMASM19zQgnBMNUPznin5894-90-97R81:31:10478 6-[address] [address] PATIENT NAME: EVELYN GIBSON ADMIT DATE: 07/26/23ACCOUNT NO: [id number] ROOM NO: [facility] AGE: 83 REPORT TYPE: eELECTROCARDIOGRAM REPORT SEX: F ADMITTING PHYSICIAN:Apolinar Rankin MD ATTENDING PHYSICIAN:Apolinar Rankin MD Order:[id number] Reason : AFIB RVR Test Date/Time Stamp:FriAug [...] 10:18,No significant change was foundConfirmed by MD KERLINE, KORTNEY ([id number]) on 08/07/2023 9:02:00 PM Referred By: Apolinar Rankin Confirmed by:KORTNEY FRANKS MD at 2101 PATIENT NAME: EVELYN GIBSON .[id number] AVAvailable for patient hzblEWTXJPNAYAWVAJ0312-86-41H36:02:22 [facility] 2023-08-01 09:30:00 [id number] ed33294a5MU67zpO2xYliGQAP807t j3W7zwvekirk+5J5MD4n9K1mduk4882-10-61C81:30:00 [facility]Cardiothoracic Surgery ProgREPORT#:[id number] REPORT STATUS: SignedREPORT INITIALIZATION DATE:08/01/23 TIME: 929 PATIENT: EVELYN GIBSON UNIT #: [id number]#: [id number] ROOM/BED: [facility]-1DOB: [birth year] AGE: 83 SEX: F ATTEND: Apolinar Rankin Shlely [facility] AUTHOR: Dayna Younger PhysicREPT SERVICE DT/TIME: 08/01/23 0930* ALL edits or amendments must be made [...] B/P Mean 90 08/01 0800 Pulse 130 08/01 0800 Resp 15 08/01 [...] full range of motion, painless range of motionNeuro/MANAGER STAFFING: alert, oriented X 3Psychiatry: normal affect, normal judgment/insight Diagnosis, Assessment PlanFree Text A P:83-year-old female, PMHx HTN, diabetes on metformin, HLD, back pain, arthritis, vertigo for which she reportedly takes a Xanax, breast cancer left-sided mastectomy. Patient is transferred to us from [facility], patient of Dr. Hernández, and she reports chest pressure, burning sensation in her throat, sensation of nausea which started a few weeks ago after having a GI illness with vomiting. Patient was evaluated at [facility] for reports of chest pain, and findings of normal EKG, troponins within normal limits, BNP elevated at 1397, UA negative, chest x-ray stable, echocardiogram done with findings of severe aortic stenosis patient referred to us for TAVR evaluation. Patient reports cardiac cath done at [facility], however, we have no report of cardiac [...] and he agrees with plan for TAVR.-TAVR qafs-nu-Wlbrsocxgd tuqyvdb-Nkvcucnsyvre-axbcn restriction-Resume prior hospital meds 07/27/2023TAVR eval-Pending CT rmlmj-Kqriozxwpfjl-jfdhd restrictionLeukocytosis, afebrile, UA 1+ leukocyte Estrace. Urine [...] done. Continue supportive care at 0933 at 0334 RPT #:[id number] OF REPORTPRProgress tmaa1069-67-19E45:30:00G.WNQX01998548-2902AUIbhhz able for patient dgldJKTHLSYFNICUOU3212-18-10Q80:34:08 [facility] 2023-08-01 09:29:00 [id number] YLp4lAyUB+l118nBPE+llMXHeNQ0M Xi4E/5jZpxcONottVpk3c9SzgRz1272-93-86I78:29:12174 0-0026 [place] [address] PATIENT NAME: EVELYN GIBSON ADMIT DATE: 07/26/23ACCOUNT NO: [id number] ROOM NO: [facility] AGE: 83 REPORT TYPE: eECHOCARDIOGRAM REPORT SEX: F ADMITTING PHYSICIAN:Apolinar Rankin MD ATTENDING PHYSICIAN:Apolinar Rankin MD *[place] [phone]: Inf: [phone] Transthoracic Echocardiogram Patient: Gareth Gibson Date: 07/31/2023 BP: 117 / 57 [id number] 1940 Age: 83 Height: 61 in / 154.9 [facility] [id number] Gender: F Weight: 180.6 lb / 82.1 kgBMI/BSA: 34.2 kg/m 2 / 1.92 m 2 *Ordering Physician: * Kameron Degroot NP *Interpreting Physician: * Parmjit Houser MD*Acid Dipper: * Katie Heredia [facility] Indications: S/P TAVR. Study data: Transthoracic echocardiogram. Procedure: Transthoracicechocardiography was performed. Images were obtained using a [employer] cardiacultrasound machine. Image quality was good. Complete [...] ---- ratio Pulmonic valve Value 07/30/2023 Ref LA v, ED 2.38 m/sec 0.62 ---- LA grad, 23 mm Hg ---- ED Aortic [...] calcified. Prepared and electronically signed byPATIENT NAME: EVELYN GIBSON Parmjit Houser MD08/01/2023 09:29 at 0929 PATIENT NAME: EVELYN GIBSON :29:0 0G.[id number] for patient olmeJRBCNJZZDGAVPH9711-90-02A37:29:58 [facility] 2023-08-01 09:27:00 [id number]+97dc sktsb44kpdnPJpe1DE3D86IDUMiWN qQetpgLFWpFd0LkrqbS2rHoOAHN1795-53-80L71:27:00 [facility] CenterEP Consultation NoteREPORT#:[id number] REPORT STATUS: SignedREPORT INITIALIZATION DATE:08/01/23 TIME: 926 PATIENT: EVELYN GIBSON UNIT #: [id number]#: [id number] [address]OB: [birth year] AGE: 83 SEX: F ATTEND: Apolinar Rankin [facility] AUTHOR: Roberto Sahni NPREPT SERVICE DT/TIME: 08/01/23926* [...] non-tenderExtremities: dry, moves allMusculoskeletal: full range of motionNeuro/MANAGER STAFFING: alert, oriented X 3Skin: dry, intactTelemetry Interpretation:Sinus rhythm Diagnosis, Assessment PlanFree Text A P:1. Paroxysmal Atrial Fibrillation with RVRThe patient is currently sinus rhythm and is on amiodarone.Amiodarone drip can be completed as she is PO dosing along with a beta woody.Echocardiogram reviewed, left atrium is not dilated.Her Tdq8ihub score is 5 and will need parts counterman anticoagulation.HASBLEd score is 2 so she is in the moderate range but no high.We would recommend Eliquis along with plavix given recent TAVR valve implant.Anticoagulation discussed with Cardiology.Patient did mention a mechanical fall one time early this year but no recurrent falls.Discussed risks/benefits/alternatives and patient agrees with anticoagulation. 2. Severe Aortic StenosisS/p TAVR procedure, management by CTS/Cardiology.Recovering.MUA0UA0-HYPl Score GYG0PX7-ZBSm Score Response Value CHF: No 0 HTN: [...] with: patient at 1409 at 2100 RPT #:[id number] OF REPORTBQWxddessuxcvp0538-67-01G61:27:00G.PDOC2 1571204-6635QEKyfbcirgk for patient hfkjWWJABIHJDEFYIB0350-19-27X80:10:09 [facility] 2023-08-01 08:22:00 [id number] a38DuqNF4MF1itNp7jNfljQUcXUH3 zY0fVMFo6O2WBd66EZ1cQblKlTb3113-54-15L26:22:00 [facility] ([facility]STITUTECardiology Progress NoteREPORT#:[id number] REPORT STATUS: SignedREPORT INITIALIZATION DATE:08/01/23 TIME: 821 PATIENT: EVELYN GIBSON UNIT #: [id number]#: [id number] [address] AGE: 83 SEX: F ATTEND: Apolinar Rankin MDADM AUTHOR: Tabitha HerringPREPT SERVICE DT/TIME: 08/01/23821* ALL [...] no urinary catheterLower extremity: LE assessment: no edemaNeuro/MANAGER STAFFING: alert, oriented X 3Skin: dry, intact, normal [...] (Auto) (14.0 - 32.0 %) 11.3 L Brewster % (Auto) (4.8 - 9.0 %) 11.3 H Eos % (Auto) (0.3 - 3.7 %) 1.2 Baso % (Auto) (0.0 - 2.0 %) 0.3 Neut # (Auto) (2.0 - 7.6 x10 3/uL) 10.32 H Lymph # (Auto) (1.0 - 3.8 x10 3/uL) 1.55 Brewster # (Auto) (0.1 - 0.8 x10 3/uL) [...] BID* Lovenox 1 mg/kg x1 dose today* EXH6PW1-TGTg score 3* EP consult * recurrent afib RVR, rebolus amio, up amio gtt to 1 mg Get PT/OTMobilize OOB Keep in CCU at 0910 at 1441 RPT #:[id number] OF REPORTPRProgress cnyd5418-10-53G31:22:00G.GVCH91434544-2898PKTskpn able for patient xmehWWAPEAUDLWNWQQ0628-20-49E51:10:14 [facility] 2023-07-31 11:42:00 Y15361762296rkNfp4/c n8hwJjMm1jH6x1peew8/RmxizO6Tf ZPUtT8fJXbIJnsqE0qZ99+Stuv90408-80-64A70:42:00 [facility] ([facility])Structural Heart Post ProgressREPORT#:[id number] REPORT STATUS: SignedREPORT INITIALIZATION DATE:07/31/23 TIME: 1142 PATIENT: EVELYN GIBSON UNIT #: [id number]#: [id number] [address] AGE: 83 SEX: F ATTEND: Apolinar Rankin [facility] AUTHOR: Roberto Sahni NPREPT SERVICE DT/TIME: 07/31/23 1142* ALL edits or amendments must be made on the electronic/computer document * History of Present Illness HPIReferring playground attendant:Dr. Hernández/CorrinaProcedure date: 07/30/23TAVR procedure: Valve type: Bliss Ventura [...] painless range of motion, straight leg raise negNeuro/MANAGER STAFFING: alert, oriented X 3, CNII-XII intact, NL [...] is managing. 3. HypertensionBlood pressures are reasonable. [id number] Score: [id number]-FPBe Score: Response Value CHF: Yes 1 HTN: Yes 1 age greater than 75 years: Yes 2 age between 65 and 74 yrs: No 0 hx stroke, TIA, or TE: No 0 vascular disease: No 0 diabetes mellitus: Yes 1 female: Yes 1 Total 6 at 1202 RPT #:[id number] OF REPORTPRProgress qmcq6553-68-57E49:42:00G.[id number] able for patient zxpxOKUAYLXLXEGEWE8638-88-43W18:02:37 [facility] 2023-07-31 10:18:00 [id number] Ut47+UgxhLgf0YCHhqERHQb1ZEeB0 nQFWxXKrmT/Hq+mB/In6c5Yb5FS3574-16-38S73:18:66456 0-0125 [place] [address] PATIENT NAME: EVELYN GIBSON ADMIT DATE: 07/26/23ACCOUNT NO: [id number] ROOM NO: G.[id number] AGE: 83 REPORT TYPE: eELECTROCARDIOGRAM REPORT SEX: F ADMITTING PHYSICIAN:Apolinar Rankin MD ATTENDING PHYSICIAN:Apolinar Rankin MD Order:[id number] Reason : , Test Date/Time Stamp:FriJul 31 [...] Apolinar Rankin Confirmed by:KORTNEY FRANKS MD at 8922 PATIENT NAME: EVELYN GIBSON .[id number] AVAvailable for patient srgpPRUVXFTHIZHCBS9572-31-22G83:19:01 [facility] 2023-07-31 10:10:00 [id number] zcQ3RD0hAoox3i/HUVYd01qR1cw2M rsZTgkpiCbgW0ZsMCL6116ptxbS1392-71-24B29:10:00 [facility] CenterCardiology Progress NoteREPORT#:[id number] REPORT STATUS: SignedREPORT INITIALIZATION DATE:07/31/23 TIME: 101 PATIENT: EVELYN GIBSON UNIT #: [id number]#: [id number] [address] AGE: 83 SEX: F ATTEND: Apolinar Rankin MDADM AUTHOR: Tabitha HerringPREPT SERVICE DT/TIME: 07/31/23 1010* ALL edits or [...] 59 94 07/30 2130 98 Room air 11/08 2000 36.6 Room air 07/30 2000 83 [...] no urinary catheterLower extremity: LE assessment: no edemaNeuro/MANAGER STAFFING: alert, oriented X 3Skin: dry, intact, normal colorPsychiatry: normal affect, normal mood ResultsFindings/Data:Laboratory Tests 07/3108 0723 0356 2032 1608 1230Chemistry Sodium (134 [...] (1.6 - 2.6 mg/dL) 1.98 Laboratory Tests 07/316 Hematology WBC (4.5 - 11.0 x10 3/uL) [...] (Auto) (14.0 - 32.0 %) 10.8 L Brewster % (Auto) (4.8 - 9.0 %) 11.0 H Eos % (Auto) (0.3 - 3.7 %) 0.6 Baso % (Auto) (0.0 - 2.0 %) 0.3 Neut # (Auto) (2.0 - 7.6 x10 3/uL) 11.78 H Lymph # (Auto) (1.0 - 3.8 x10 3/uL) 1.66 Brewster # (Auto) (0.1 - 0.8 x10 3/uL) [...] structures appearunremarkable.Impression By: [id number] Mohit Goldstein M.D. Results: labs reviewed, vital signs reviewed, rhythm personally rev'dTelemetry Interpretation:afib then converted to sinus Scores GOE9HH8-OQJb ElsuyUQC4WK7-RCTu Score QZR6KR1-EOCo Score Response Value age greater than 75 [...] mg BID* Lovenox 1 mg/kg x1 dose* FNH8MF7-YLTj score 3 Get PT/OTMobilize OOB at 1616 at 1438 RPT #:[id number] OF REPORTPRProgress xyfu5819-52-91E79:10:00G.NXFX14609112-6094KYYfhrf able for patient efbzJHPTBSCXWWOYLV1016-58-31K50:17:05 [facility] 2023-07-31 08:16:00 [id number] gh7OKu/VvAdvZohYzAd2vhgMeYFDZ wexdLeYUtSztta0YvHdr0pnhsVS2673-69-50F03:16:00 [facility] CenterCardiothoracic Surgery ProgREPORT#:[id number] REPORT STATUS: SignedREPORT INITIALIZATION DATE:07/31/23 TIME: 815 PATIENT: EVELYN GIBSON UNIT #: [id number]#: [id number] [address] AGE: 83 SEX: F ATTEND: Apolinar Rankin [facility] AUTHOR: Dayna Younger PhysicREPT SERVICE DT/TIME: 07/31/23 [...] 18 07/31 540 O2 Delivery Room air 07/300 Temp 97.8 07/30 2000 24 hour I [...] full range of motion, painless range of motionNeuro/MANAGER STAFFING: alert, oriented X 3Psychiatry: normal affect, normal judgment/insight Diagnosis, Assessment PlanFree Text A P:83-year-old female, PMHx HTN, diabetes on metformin, HLD, back pain, arthritis, vertigo for which she reportedly takes a Xanax, breast cancer left-sided mastectomy. Patient is transferred to us from [facility], patient of Dr. Hernández, and she reports chest pressure, burning sensation in her throat, sensation of nausea which started a few weeks ago after having a GI illness with vomiting. Patient was evaluated at [facility] for reports of chest pain, and findings of normal EKG, troponins within normal limits, BNP elevated at 1397, UA negative, chest x-ray stable, echocardiogram done with findings of severe aortic stenosis patient referred to us for TAVR evaluation. Patient reports cardiac cath done at [facility], however, we have no report of cardiac [...] and he agrees with plan for TAVR.-TAVR qelh-xc-Faruwiubeg qsvngey-Oumspmuuoijz-ggoyl restriction-Resume prior hospital meds 07/27/2023TAVR eval-Pending CT zndxh-Oibkkslypxsn-vdlhq restrictionLeukocytosis, afebrile, UA 1+ leukocyte Estrace. Urine [...] Dr Rankin. at 0821 at 0610 RPT #:[id number] OF REPORTPRProgress mbxb4035-57-34I29:16:00G.CNKB25430637-3160TKQdtxw able for patient ciulKNKJFOCHPOQDYB4805-73-98I44:21:49 [facility] 2023-07-31 07:31:00 [id number] /httiqG0/hCWiUaUYQyB2P1EPEmFx 0jLXwRqzpLgMqNyLabOt1vRpzK/1434-31-27S42:31:70492 0-[address] [address] PATIENT NAME: EVELYN GIBSON ADMIT DATE: 07/26/23ACCOUNT NO: [id number] ROOM NO: [facility] AGE: 83 REPORT TYPE: eELECTROCARDIOGRAM REPORT SEX: F ADMITTING PHYSICIAN:Apolinar Rankin MD ATTENDING PHYSICIAN:Apolinar Rankin MD Order:[id number] Reason : Post PCI Test Date/Time Stamp:FriJul [...] MD KERLINE, KORTNEY ([id number]) on 08/01/2023 5:18:24 PM Referred By: Self Referred Confirmed by:KORTNEY FRANKS MD at 1718 PATIENT NAME: EVELYN GIBSON .[id number] AVAvailable for patient jqldDHLQQDVMFCGAOO5582-76-74Y07:18:41 [facility] 2023-07-30 21:09:00 [id number] CFp9FIe0Jes2X0MS2dEq4SNEQOz1M O7E9viH1d2vQb4ZWquGy+g3sO4s0363-94-56F82:09:00 [facility] ([facility])DT Operative NoteREPORT#:[id number] REPORT STATUS: SignedREPORT INITIALIZATION DATE:07/30/23 TIME: 2108 PATIENT: EVELYN GIBSON UNIT #: [id number]#: [id number] ROOM/BED: [facility]-1DOB: [birth year] AGE: 83 SEX: F ATTEND: Apolinar Rankin [facility] AUTHOR: Apolinar Rankin MDREPT SERVICE DT/TIME: 07/30/232108* [...] 5. Completion angiogram Surgeon: Toño Rankin MD Automation Architect: MD Lissa Ruiz MD Anaesthesia: MAC Estimated [...] by Dr. Garcia as he was the missile mechanic. The patient was brought into the hybrid [...] instrument count were correct. at 2113 RPT #:[id number] OF REPORTOPOperative pekqfd9288-61-76U45:09:00G.PCSC80728329-3038YRHab ilable for patient xziaUZJVZVUFIHIFDG9308-14-37Q68:13:50 [facility] 2023-07-30 18:29:00 [id number] 2N9KC+K0lP4tXfQGrVU1cmE5KNfOq sW1bEWxD1NUgA6iGzp1NOrg9Bg09150-54-83X74:29:71009 1-[address] [place] [address] PATIENT NAME: EVELYN GIBSON ADMIT DATE: 07/26/23ACCOUNT NO: [id number] ROOM NO: G.3396 AGE: 83 REPORT TYPE: CARDIAC CATHETERIZATION REPORT SEX: F ADMITTING PHYSICIAN:Apolinar Rankin MD ATTENDING PHYSICIAN:Apolinar Rankin MD PROCEDURE DATE: 07/30/2023 INDICATION: Symptomatic severe aortic stenosis. CLINICAL HISTORY: A very pleasant 83-year-old female patient transferred from [place] with symptomatic critical aortic stenosis with heavy exertional angina with minimal exertion, shortness of breath and decompensated CHF. She was found to have a mean gradient of 75 mmHg by echocardiogram. The patient wasoffered the option of transcatheter aortic valve replacement. She understood the risks, indications and benefits as well as alternatives of the procedure including but not limited to risk of , DE, CVA, vascular and renal injury and was willing to proceed. PROCEDURES:1. A 14-Malawian right femoral arterial access.2. Status post transcatheter aortic valve replacement with a 23-mm Bliss Ventura Ultra valve with excellent echocardiographic and angiographic results.3. An 8-Malawian left femoral venous access.4. Status post temporary venous pacemaker.5. A 5-Malawian left femoral arterial access.6. Status post ProGlide closure of all arteriotomies and venotomies with excellent hemostasis. COMPLICATIONS: None. ESTIMATED BLOOD LOSS: Less than 10 mL. ANESTHESIA: MAC. OPERATORS:1. Rowdy Crum MD.2. Parmjit Houser MD CT SURGEON: Cta Rankin MD PROCEDURE IN DETAIL: Both groins were prepped and draped in the usual sterile fashion. Local anesthesia was administered. A 5-Malawian sheath was placed in the left femoral artery using ultrasound-guided access. An 8-Malawian sheath was placed in the left femoral vein and then a 6-Malawian sheath was placed in the right femoral artery. Two ProGlide sutures were deployed in the form of the Preclosure and then the 14-Malawian Bliss sheath was advanced over a J [...] MD Date Dictated: 07/30/2023 18:29:23Date Transcribed: 07/30/2023 22:37:57BAS/JULIA/Judy #: [id number] ID: [id number] by Rowdy Crum MD On 08/05/2023 11:15:46 PM at 1115 PATIENT NAME: EVELYN GIBSON zwgu7919-65-63X39:37:00G.RBW96468549-1038ACYvtyas ble for patient kpsoTWGMUWLUTLQPUL5617-46-63G15:16:24 [facility] 2023-07-30 18:12:00 S80019552916qbOj1A1s tdYPKsLvnZ1Api7mzpzALRx1IUT1J 0nuIkwnorzJ+sHBEhbdR9edeLtG9173-42-59T90:12:00 [facility] CenterCardiology Progress NoteREPORT#:[id number] REPORT STATUS: SignedREPORT INITIALIZATION DATE:07/30/23 TIME: 1811 PATIENT: EVELYN GIBSON UNIT #: [id number]#: [id number] [address] AGE: 83 SEX: F ATTEND: Apolinar Rankin AUTHOR: Parmjit Houser MDREPT SERVICE DT/TIME: 07/30/231811* [...] (SUBLIMAZE) 0 .STK-MED ONE .ROUTE (DC) Rocuronium Rayle (ZEMURON) 0 .STK-MED ONE IV (DC) Cefazolin [...] no bleeding Right groin site: intact, no bleedingNeuro/MANAGER STAFFING: alert, oriented X 3Skin: dry, intact, normal [...] 07/30 07/30 07/30 07/29 0832 0813 0146 2052 Coagulation INR (0.8 - 1.2) 1.0 1.1 PTT (Ray) (25.0 - 39.5 Seconds) 40.3 H PT Patient/Control Mix (9.3 - 12.9 SECONDS) 11.5 11.8 Activated Coag Time (74 - 137 SEC) 276 H 287 H Laboratory Tests 07/30 0146 Hematology WBC (4.5 - 11.0 x10 3/uL) [...] % (Auto) (14.0 - 32.0 %) 17.5 Brewster % (Auto) (4.8 - 9.0 %) 11.1 H Eos % (Auto) (0.3 - 3.7 %) 0.8 Baso % (Auto) (0.0 - 2.0 %) 0.3 Neut # (Auto) (2.0 - 7.6 x10 3/uL) 7.63 H Lymph # (Auto) (1.0 - 3.8 x10 3/uL) 1.92 Brewster # (Auto) (0.1 - 0.8 x10 3/uL) [...] # Hyponatremia* NA 129 at 1419 RPT #:[id number] OF REPORTPRProgress pbjh6533-96-59L40:12:00G.JNUQ88086933-2250FFMisyc able for patient kmgbKGQMDPESAFXNIW0496-63-16S71:19:49 [facility] 2023-07-30 18:07:00 [id number] Hkhbo/U/y2N4FjZUQ+31RQCmVAmeA UUHpKffQzyiR+YATxNPBkg7BrDL9633-95-73S76:07:[address] [address] PATIENT NAME: EVELYN GIBSON ADMIT DATE: 07/26/23ACCOUNT NO: [id number] ROOM NO: [facility] AGE: 83 REPORT TYPE: eECHOCARDIOGRAM REPORT SEX: F ADMITTING PHYSICIAN:Apolinar Rankin MD ATTENDING PHYSICIAN:Apolinar Rankin MD *[address] [address]Hojsr: [phone]: [phone] Limited Transthoracic Echocardiogram Patient: Gareth Gibson Date: 07/30/2023 BP: 127 / 60 Location: NATIRN: [id number] : 1940 Age: 83 Height: 62 in / 157.5 [facility] [id number] Gender: F Weight: 180.6 lb / 82.1 kgBMI/BSA: 33.1 kg/m 2 / 1.83 m 2 *Ordering Physician: * Parmjit Houser MD *Interpreting Physician: * Parmjit Houser MD*Acid Dipper: * Katie Heredia [facility] Indications: TAVR. Study data: Transthoracic echocardiogram, limited study. Procedure:Transthoracic echocardiography was performed. Images were obtained usinga [employer] cardiac ultrasound machine. Image quality was good. [...] 0.53 ---- Pulmonic valve Value 07/27/2023 Ref LA v, ED 0.62 m/sec 0.64 ---- Tricuspid [...] at 1807 PATIENT NAME: EVELYN GIBSON :07:0 0G.[id number] for patient lploREPHXBQBSYDDQR7515-23-20P54:08:22 [facility] 2023-07-30 16:08:00 [id number] ooqh4ogS8YCckxmwVSgzPpaXTDCyL QiPuXK1RY4QJ8c1IGZJx0+iEu8Y8869-81-82H22:08:00 [facility] ([facility])Clinical NoteREPORT#:[id number] REPORT STATUS: SignedREPORT INITIALIZATION DATE:07/30/23 TIME: 1608 PATIENT: EVELYN GIBSON UNIT #: [id number]#: [id number] [address] [birth year] AGE: 83 SEX: F ATTEND: Apolinar Rankin MDA AUTHOR: Georgette Craven NPREPT SERVICE DT/TIME: 07/30/23 [...] Awake/alert and able to make needs known. THE370-982-3466 at 1610 RPT #:[id number] OF REPORTCLClinical xpxn7383-17-70C07:08:00G.KHRH34471198-4706RHCtoyt able for patient vlkmIEWXWQGPHUWUVZ6059-34-28C60:10:29 [facility] 2023-07-30 09:14:00 [id number] sjjWAYrjhJb7nNt5jfaac0yhKNpsP FIofydrkLSjKf3YUStlZ0d9MdSf2052-43-72F19:14:58167 8-[address] [address] PATIENT NAME: EVELYN GIBSON ADMIT DATE: 07/26/23ACCOUNT NO: [id number] ROOM NO: [facility] AGE: 83 REPORT TYPE: eELECTROCARDIOGRAM REPORT SEX: F ADMITTING PHYSICIAN:Apolinar Rankin MD ATTENDING PHYSICIAN:Apolinar Rankin MD Order:[id number] Reason : S/PTAVR Test Date/Time Stamp:FriJul 30 [...] ECG of 26-JUL-2023 08:28,No changesConfirmed by MD FRANKS GERARD ([id number]) on 07/30/2023 9:31:28 PM Referred By: Apolinar Rankin Confirmed by:KORTNEY FRANKS MD at 2131 PATIENT NAME: EVELYN GIBSON .[id number] AVAvailable for patient lxuuMBGCDBDKDDDWCQ8415-47-52Z50:33:04 [facility] 2023-07-29 11:52:00 [id number] A5ATwvXEjXDSlaf2S5ofbNeZEBUvV C/1JxgsyPk2fSB99BkSNplJzJqC8261-16-31D96:52:00 [facility] CenterCardiology Progress NoteREPORT#:[id number] REPORT STATUS: SignedREPORT INITIALIZATION DATE:07/29/23 TIME: 115 PATIENT: EVELYN GIBSON UNIT #: [id number]#: [id number] ROOM/BED: 3396-1DOB: [birth year] AGE: 83 SEX: F ATTEND: Apolinar Rankin MDADM AUTHOR: Tabitha HerringCNPREPT SERVICE DT/TIME: 07/29/23 1152* ALL edits or [...] no urinary catheterLower extremity: LE assessment: no edemaNeuro/MANAGER STAFFING: alert, oriented X 3Skin: dry, intact, normal colorPsychiatry: anxious ResultsFindings/Data:Laboratory Tests 07/292 0213 2038 1647 Chemistry Sodium (134 - [...] % (Auto) (14.0 - 32.0 %) 16.5 Brewster % (Auto) (4.8 - 9.0 %) 11.4 H Eos % (Auto) (0.3 - 3.7 %) 0.6 Baso % (Auto) (0.0 - 2.0 %) 0.3 Neut # (Auto) (2.0 - 7.6 x10 3/uL) 8.70 H Lymph # (Auto) (1.0 - 3.8 x10 3/uL) 2.03 Brewster # (Auto) (0.1 - 0.8 x10 3/uL) [...] NA [address] Houser. at 3860 at 5561 RPT #:[id number] OF REPORTPRProgress idkv1168-10-64L02:52:00G.LQLS14894091-6139SUMziux able for patient vawvVIVBXWQSTVKMSS4779-73-32T77:56:19 [facility] 2023-07-28 13:25:00 [id number] gevXw+t+22Mg8khv0D/IrqtmkcHq2 jUrbbkhrLCNdyjLix9bptY6pwN17718-39-56T54:25:00 [facility] ([facility])Cardiology Progress NoteREPORT#:[id number] REPORT STATUS: SignedREPORT INITIALIZATION DATE:07/28/23 TIME: 1325 PATIENT: EVELYN GIBSON UNIT #: [id number]#: [id number] [address] AGE: 83 SEX: F ATTEND: [...] to auscultationAbdomen: softLower extremity: LE assessment: no edemaNeuro/MANAGER STAFFING: alert, oriented X 3Psychiatry: normal affect, normal mood ResultsFindings/Data:Laboratory Tests 07/28 07/28 07/28 07/27 07/27 1117 0730 0158 2021 1647 Chemistry Sodium (134 - 147 mEq/L) [...] (Auto) (14.0 - 32.0 %) 12.8 L Brewster % (Auto) (4.8 - 9.0 %) 10.8 H Eos % (Auto) (0.3 - 3.7 %) 0.2 L Baso % (Auto) (0.0 - 2.0 %) 0.2 Neut # (Auto) (2.0 - 7.6 x10 3/uL) 12.09 H Lymph # (Auto) (1.0 - 3.8 x10 3/uL) 2.04 Brewster # (Auto) (0.1 - 0.8 x10 3/uL) [...] IMPRESSION: No acute cardiopulmonary process.Impression By: BeeJW22 Mohit Narvaez D.O. Results: labs reviewed, vital signs reviewed Diagnosis, Assessment Plan Free Text DxA P NotesFree Text DxA P Notes:1. Symptomatic severe aortic stenosis Echo: LVEF 60-64% with critical . Peak velocity 5.44, mean PG 73.21, mag PG 118.46, RISHABH VTI 0.6, RISHABH 0.8TAVR CTs done, report pendingCath done at outside facility reviewedcase will be discussed in valve conference tomorrow at 1423 RPT #:[id number] OF REPORTPRProgress qogh9986-33-59R19:25:00G.EFFV32276359-1982DURbuba able for patient kggnBUUPRCUXNGOKMM2505-78-90L40:23:30 [facility] 2023-07-28 12:52:00 S667925258947X3srL+S VSZDtfUDxJRof/tR0inbF4VjaLMI2 dJuJUc6R0xb51IUdNaZA8FlxSOe4459-71-06U99:52:00 [facility] ([facility])Structural Heart Post ProgressREPORT#:[id number] REPORT STATUS: SignedREPORT INITIALIZATION DATE:07/28/23 TIME: 1252 PATIENT: EVELYN GIBSON UNIT #: [id number]#: [id number] [place] [facility]DOB: [birth year] AGE: 83 SEX: F ATTEND: Apolinar [...] BENADRYL ALLERGY) (NAUSEA/VOMITING 07/26/23) at 1253 RPT #:[id number] OF REPORTPRProgress rbqp4581-10-61J26:52:00G.XKYG50603977-8094AUQnzrf able for patient qupgVHKQHPYQWGDLXS9042-79-92X77:53:31 [facility] 2023-07-27 12:56:00 P19064032277uN0AexwD a+oS1jSjab3F969dr6CUqQ6JyLCbe 8IoEact18z77e/tW2Ku/pC1521d3612-31-36U68:56:00 [facility] CenterCardiothoracic Surgery ProgREPORT#:[id number] REPORT STATUS: SignedREPORT INITIALIZATION DATE:07/27/23 TIME: 1256 PATIENT: EVELYN GIBSON UNIT #: [id number]#: [id number] [address] [birth year] AGE: 83 SEX: F ATTEND: Apolinar Rankin AUTHOR: Heaven Patel NPREPT SERVICE DT/TIME: 07/27/23 [...] Result Date Time Pulse Ox 93 07/27 114 B/P 130/75 07/27 1146 B/P Mean 93.0 07/27 114 Temp 97.7 07/27 114 Pulse 64 07/27 1146 Resp 18 07/27 114 O2 Delivery Room air 07/27 08 24 [...] full range of motion, painless range of motionNeuro/MANAGER STAFFING: alert, oriented X 3Psychiatry: normal affect, normal [...] 07/27 07/27 07/26 07/26 1148 0834 0756 2038 1940 Chemistry Sodium (134 - 147 mEq/L) [...] (Auto) (14.0 - 32.0 %) 9.6 L Brewster % (Auto) (4.8 - 9.0 %) 6.5 Eos % (Auto) (0.3 - 3.7 %) 0.3 Baso % (Auto) (0.0 - 2.0 %) 0.2 Neut # (Auto) (2.0 - 7.6 x10 3/uL) 15.62 H Lymph # (Auto) (1.0 - 3.8 x10 3/uL) 1.81 Brewster # (Auto) (0.1 - 0.8 x10 3/uL) [...] mastectomy. Patient is transferred to us from [facility], patient of Dr. Hernández, and she reports chest pressure, burning sensation in her throat, sensation of nausea which started a few weeks ago after having a GI illness with vomiting. Patient was evaluated at [facility] for reports of chest pain, and findings of normal EKG, troponins within normal limits, BNP elevated at 1397, UA negative, chest x-ray stable, echocardiogram done with findings of severe aortic stenosis patient referred to us for TAVR evaluation. Patient reports cardiac cath done at [facility], however, we have no report of cardiac [...] and he agrees with plan for TAVR.-TAVR dgyh-fk-Vbctfdtpwh tzulgts-Synxsmlceeba-vyuad restriction-Resume prior hospital meds 07/27/2023TAVR eval-Pending CT wypks-Cwocpipeiopj-bfqve restrictionLeukocytosis, afebrile, UA 1+ leukocyte Estrace. Urine culture pending. Empiric bactrimPatient with choking episode on food today, patient states as she did not have her dentures in. -- -Pur ed diet, chest x-rayDiscussed with Dr. Rankin at 1312 at 0535 RPT #:[id number] OF REPORTPRProgress yigf3268-42-96R92:56:00G.TABP60666623-2004EEGhnyb able for patient jomyLNFVWAAKHQTVYO2618-34-04X64:12:49 [facility] 2023-07-27 11:18:00 [id number] 6qpGAuoHzgpW5t0f3UJKl5hOQVUSI L6xSKt1wDXv2TXACHY7vGWtQ6l73029-53-71Y33:18:00 [facility] ([facility])Cardiology Progress NoteREPORT#:[id number] REPORT STATUS: SignedREPORT INITIALIZATION DATE:07/27/23 TIME: 1118 PATIENT: EVELYN GIBSON UNIT #: [id number]#: [id number] ROOM/BED: 3352-1DOB: [birth year] AGE: 83 SEX: F ATTEND: Apolinar [...] Flow FiO2 Mean Ox Delivery Rate 07/27 0820 95 Room air 07/27 0756 36.6 69 [...] to auscultationAbdomen: softLower extremity: LE assessment: no edemaNeuro/MANAGER STAFFING: alert, oriented X 3 Diagnosis, Assessment Plan [...] Dr. Crum at 1122 at 1642 RPT #:[id number] OF REPORTPRProgress dkyl4508-97-33V42:18:00G.DBEA93640028-5465HGCfelb able for patient ofbfBQBOSYNQQLUUJF1705-69-69W15:23:09 [facility] 2023-07-27 10:31:00 [id number] BavW+ONFWq6xmSthLLpPrYDGokU6R FOmCYqZQGZlj1isomPbHkxhTM9k7333-93-55P95:31:95420 5-0009 [place] [address] PATIENT NAME: EVELYN GIBSON ADMIT DATE: 07/26/23ACCOUNT NO: [id number] [place] [facility] [place] 83 REPORT TYPE: eECHOCARDIOGRAM REPORT SEX: F ADMITTING PHYSICIAN:Apolinar Rankin MD ATTENDING PHYSICIAN:Apolinar Rankin MD *[place], [place] [address]Phone: Zhk: [phone] Transthoracic Echocardiogram Patient: Gareth Gibson Date: 07/27/2023 BP: 106 / 53 Location: COCCLURN: [id number] : 1940 Age: 83 Height: 63 in / 160 cmAccession#: [id number] Gender: F Weight: 186.6 lb / 84.8 kgBMI/BSA: 33.1 kg/m 2 / 1.88 m 2 *Ordering Physician: * Heaven Patel *Interpreting Physician: * Rowdy Crum MD*Acid Dipper: * Latoya Gonzalez Indications: Cardiac surgery pre-op. [...] cm 2 --------- Pulmonic valve Value Ref LA v, ED 0.64 m/sec --------- Tricuspid valve [...] at 1031 PATIENT NAME: EVELYN GIBSON :31:0 0G.FGE02605055-6863WIMdnyrlibq for patient husuGYSSOCWUSMSRTJ0474-89-33L98:31:44 [facility] 2023-07-26 15:24:00 [id number] 4RYYyJi/jPYzdt90Tdf67dpUmhdwO 8MpUK6ITkuiwhMZGjtTNBjVYobX8332-01-64R76:24:00 [facility] ([facility])Cardiology ConsultationREPORT#:[id number] REPORT STATUS: SignedREPORT INITIALIZATION DATE:07/26/23 TIME: 1523 PATIENT: EVELYN GIBSON UNIT #: [id number]#: [id number] [address] [birth year] AGE: 83 SEX: F ATTEND: [...] pressure on exertion she [facility] she was found out to have severe aortic stenosis onthe echocardiogram. She had cardiac catheterization report but would not have access to the results. Dr. Hernández is her playground attendant History - Adult longitudinalSmoking status for patients [...] LCoagulation INR (0.8 - 1.2) 1.1 PTT (Ray) (25.0 - 39.5 Seconds) 35.2 PT Patient/Control [...] (Auto) (14.0 - 32.0 %) 11.8 L Brewster % (Auto) (4.8 - 9.0 %) 8.5 Eos % (Auto) (0.3 - 3.7 %) 0.4 Baso % (Auto) (0.0 - 2.0 %) 0.2 Neut # (Auto) (2.0 - 7.6 x10 3/uL) 9.50 H Lymph # (Auto) (1.0 - 3.8 x10 3/uL) 1.43 Brewster # (Auto) (0.1 - 0.8 x10 3/uL) [...] pH (5.0 - 7.0) 5.0 Ur Specific [place] (1.005 - 1.030) 1.017 Urine Protein (NEGATIVE) [...] of hemodynamically significant (greater than50%) stenosis. LOCATION: [id number] By: Remington - Tammie Francis M.D.RADIOLOGY - XR CHEST 2 V 07/26 1109 Report Impression - Status: SIGNED Entered: 07/26/2023 1127 IMPRESSION:1. No radiographic evidence of acute cardiopulmonary process.Impression By: Kylah Ybarra M.D. Current Medications Sig/Vishnu Start time Last Medication Dose Route Stop Time Status Admin Simvastatin 10 MG 2100 07/27 2100 AC PO 10/25 205 Amiodarone HCl 450 MG ASDIR 07/26 1500 [...] valve conference on Friday at 1527 RPT #:[id number] OF REPORTGQMhxuverhuaje4839-62-89O86:24:00G.PDOC2 [id number] for patient qtjaSQXSFNMTVDOKRX1832-25-49V49:27:26 [facility] 2023-07-26 11:38:00 [id number] yasbvGAiVin3coGbJ2WX6gr5G7fnA eEDHuAhKumn8c91gc/Gd2j1AF+j6681-86-33I58:38:00 [facility] ([facility])History Physical - AdultREPORT#:[id number] REPORT STATUS: SignedREPORT INITIALIZATION DATE:07/26/23 TIME: 1137 PATIENT: EVELYN GIBSON UNIT #: [id number]#: [id number] [address] AGE: 83 SEX: F ATTEND: Apolinar Rankin MDADM AUTHOR: Heaven Patel NPREPT SERVICE DT/TIME: 07/26/231137* ALL edits or amendments must be made on the electronic/computer document * Heaven Patel 07/26/231137:History of Present Illness HPIChief complaint:Chest pain, referred for TAVR evaluation.Patient resting in bed, no complaints.HPI:83-year-old female, PMHx HTN, diabetes on metformin, HLD, back pain, arthritis, vertigo for which she takes a Xanax, breast cancer left-sided mastectomy. Patient is transferred to us from [facility], patient of Dr. Hernández, and she reports chest pressure, burning sensation in her throat, sensation of nausea which started a few weeks ago after having a GI illness withvomiting. Patient was evaluated at [facility] for reports of chest pain, and [...] of motionMusculoskeletal: full range of motion, normal inspectionNeuro/MANAGER STAFFING: alert, oriented X 3Skin: dry, intact, no [...] (Auto) (14.0 - 32.0 %) 11.8 L Brewster % (Auto) (4.8 - 9.0 %) 8.5 Eos % (Auto) (0.3 - 3.7 %) 0.4 Baso % (Auto) (0.0 - 2.0 %) 0.2 Neut # (Auto) (2.0 - 7.6 x10 3/uL) 9.50 H Lymph # (Auto) (1.0 - 3.8 x10 3/uL) 1.43 Brewster # (Auto) (0.1 - 0.8 x10 3/uL) [...] (Man) (0.0 - 0.1 x10 3/uL) 0.00 / 0901 Chemistry POC Glucose (70 - 110 MG/DL) 137 H Radiology data:Recent Impressions:ULTRASOUND - DUP EXTRACRANIAL [place] 07/26 1105 Report Impression - Status: SIGNED Entered: 07/26/2023 1115 IMPRESSION:Minimal atherosclerotic disease within the bilateral carotidbifurcations. No evidence of hemodynamically significant (greater than50%) stenosis. LOCATION: [id number] By: 16 Mohit Francis M.D.RADIOLOGY - XR CHEST 2 V 07/26 1109 Report Impression - Status: SIGNED Entered: 07/26/2023 1127 IMPRESSION:1. No radiographic evidence of acute cardiopulmonary process.Impression By: [email or web address] Mohit Ybarra M.D. Diagnosis, Assessment PlanOrders: Procedure Date/time Status CONSISTENT CARBOHYDRATE DIET 07/26 B Active Resuscitation Status 07/26 113 Active Telemetry Monitoring 07/26 1135 Active MRSA [...] Active TAVR Nurse Consult 07/26 0845 Active Automation Architect Physician Cons. 07/26 0844 Active Resuscitation Status [...] 07/26 0747 Complete COMPREHENSIVE METABOLIC PANEL 07/26 07 Complete CBC W/AUTO DIFF 07/26 0747 Complete B TYPE NATRIURETIC PEPT 07/26 747 [...] mastectomy. Patient is transferred to us from [facility], patient of Dr. Hernández, and she reports chest pressure, burning sensation in her throat, sensation of nausea which started a few weeks ago after having a GI illness with vomiting. Patient was evaluated at [facility] for reports of chest pain, and findings of normal EKG, troponins within normal limits, BNP elevated at 1397, UA negative, chest x-ray stable, echocardiogram done with findings of severe aortic stenosis patient referred to us for TAVR evaluation. Patient reports cardiac cath done at [facility], however, we have no report of cardiac cath and no CD with echo or heart cath findings. Assessment:Aortic stenosis, TAVR evalHTNDiabetesHyponatremia Patient seen and evaluated by Dr. Rankin and he agrees with plan for TAVR.-TAVR bezh-bq-Jxzyoriflp zjpvbzv-Dtpegstppqqq-sgkgl restriction-Resume prior hospital Apolinar Chan 08/09/23 0828:Attestations Physician AttestationAgree w/findings plan:I have [...] the kind consult. at 1204 at 0846 RPT #:[id number] OF REPORTHPHistory and physical [id number]:38:00G.[id number] AVAvailable for patient [id number]:05:06 [facility] 2023-07-26 08:28:00 [id number] 4-[address] [place] [address] PATIENT NAME: EVELYN GIBSON ADMIT DATE: 07/26/23ACCOUNT NO: [id number] ROOM NO: [facility] AGE: 83 REPORT TYPE: eELECTROCARDIOGRAM REPORT SEX: F ADMITTING PHYSICIAN:Apolinar Rankin MD ATTENDING PHYSICIAN:Apolinar Rankin MD Order:[id number] Reason : PREOP Test Date/Time Stamp:FriJul 26 [...] Self Referred Confirmed by:BAN RUTH MD at 1444 PATIENT NAME: EVELYN GIBSON .[id number] AVAvailable for patient [id number]:48:43 [facility]
[2023-11-16] MEDS ORDERED: DIAZEPAM 10 MG/2 ML INJ SYRINGE IV PRN (15:26)
[2023-11-16] MEDS ORDERED: ATROPINE 1% OPTH DROPS 5ML SL PRN (15:27)
[2023-11-16] MEDS ORDERED: MORPHINE 4 MG/ML SYR IV PRN (15:27)
[2023-11-16] MEDS ORDERED: ONDANSETRON 4 MG/2 ML VIAL IV PRN (15:28)
[2023-11-16] MEDS ORDERED: ACETAMINOPHEN 650MG/RECT SUPP PR PRN (15:28)
[2023-11-16] MEDS ORDERED: BISACODYL 10 MG RECTAL SUPP PR PRN (15:29)
[2023-11-16] MEDS ORDERED: IPRATROPIUM BROM 0.5MG/2.5ML IH PRN (15:30)
[2023-11-16] MEDS ORDERED: ALBUTEROL 2.5 MG/3 ML NEB SOL NEB PRN (15:30)
[2023-11-16] MEDS ORDERED: DIAZEPAM 5 MG TABLET PO PRN (15:31)
[2023-11-16 15:33] VITALS: BMI 35.6
--- NOTE | 2023-11-16 16:56 | P.HP ---
Certification for Inpatient Patient admitted to: Inpatient With expected LOS: >2 Midnights Patient will require the following post-hospital care: Hospice Practitioner: I am a practitioner with admitting privileges, knowledge of patient current condition, hospital course, and medical plan of care. Services: Services provided to patient in accordance with Admission requirements found in Title 42 Section 412.3 of the Code of Federal Regulations Patient History Date of Service: 11/16/23 Reason for admission: Palliative care History of Present Illness: Patient is an 83-year-old female who was found unresponsive at home. Patient lives with her daughter and granddaughter. Patient family had left to go to the store. They have been gone for about 10 minutes, but when they came back patient was unresponsive. Patient has slumped over in her wheelchair and she was not responding. They called EMS, and when EMS arrived patient did not have a pulse and CPR was started. Patient was brought into the emergency room. Patient was intubated and patient was severely hypotensive. Patient was started on vasopressors. Patient's granddaughter is at bedside. She tells me that her uncle has medical power of health care attorney, and he will be the one making decisions for her going forward. Prior to this episode patient was getting around in her wheelchair. She had been declining quite a bit. She had told the family that she was tired, and she had mentioned that she wanted to pass away. Patient has not been responding. Family decided to terminally extubate patient. Family decided to proceed with hospice care. Allergies diphenhydramine [From Benadryl] Allergy (Verified 07/21/20 14:33) Nausea/Vomiting Home Medications: Lisinopril/Hydrochlorothiazide [Zestoretic 10-12.5 mg Tablet] 10 - 12.5 mg PO DAILY 12/10/14 Metformin HCl [Glucophage*] 500 mg PO DAILY 12/10/14 Simvastatin [Zocor*] 20 mg PO DAILY 12/10/14 Aspirin Chewable [Aspirin Chewable*] 81 mg PO DAILY 07/21/20 Docusate Sodium [Stool Softener] 100 mg PO DAILY 07/21/20 Amiodarone HCl [Cordarone*] 1 tab PO BID 08/26/23 Apixaban [Eliquis *] 1 tab PO BID 08/26/23 ALPRAZolam [Xanax*] 1 mg PO BID PRN 10/04/23 Amlodipine [Norvasc*] 10 mg PO DAILY 10/04/23 ALPRAZolam [Xanax*] 1 mg PO BIDP PRN tab 10/05/23 Albuterol Inhaler [Ventolin Inhaler*] 2 puff IH Q6H PRN 30 Days #1 inh 10/05/23 Hydrocodone 10/APAP 325 [[place] 10/325*] 1 tab PO TIDP PRN tab 10/05/23 hydroCHLOROthiazide [Hydrochlorothiazide*] 12.5 mg PO DAILY cap 10/05/23 levoFLOXacin [Levaquin] 750 mg PO DAILY 5 Days #5 tab 10/05/23 predniSONE [Deltasone] 20 mg PO BID #11 tab 10/05/23 predniSONE [Deltasone] 20 mg PO BID #11 tab 10/05/23 - Past Medical/Surgical History Diabetic: Yes -: HTN -: Type 2 diabetes -: breast cancer -: High cholesterol -: Atrial fibrillation -: copd -: arthritis -: Aortic valve repair -: eye surgery -: L mastectomy -: bronken wrist -: rotater cuff surgery -: hystertectomy. 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 Psychosocial/ Personal History: Lives at home alone - Family History Father Family History: Reviewed- Non-Contributory - Social History Smoking Status: Unknown if ever smoked Alcohol use: No CD- Drugs: No Caffeine use: Yes Review of Systems is unable to be obtained Physical Examination - Vital Signs Temperature: 99 F (reviewed) Blood Pressure: 90/50 Pulse: 110 Respirations: 30 Pulse Ox (%): 85 - Physical Exam General: Unresponsive HEENT: Atraumatic Respiratory: Diminished Cardiovascular: Abnormal pulses Gastrointestinal: Hypoactive, No tenderness Musculoskeletal: No clubbing, No swelling, No tenderness Neurological: Other (unresponsive and decerebrate posturing) Assessment & Plan - Problems (Diagnosis) (1) Palliative care patient Current Visit: Yes Status: Acute (2) Hospice care patient Current Visit: Yes Status: Acute (3) Acute hypoxic respiratory failure Current Visit: No Status: Acute (4) Cardiac arrest Current Visit: No Status: Acute - Plan Plan to proceed with comfort measures. Patient will be given morphine and Ativan as needed. Plan to proceed with hospice care at this time. - Advance Directives Does patient have a Living Will: No Does patient have a Durable POA for Healthcare: No - Code Status/Comfort Care Code Status: Do Not Attempt Resuscitat Comfort Measures: Hospice Care Critical Care: No Time Spent Managing PTS Care (In Minutes): 40
[2023-11-16] MEDS ORDERED: LORazepam 2 MG/ML VIAL IV SCH (17:00)
[2023-11-16] MEDS: MORPHINE 2 MG/ML SYR IV SCH (17:07)
[2023-11-16] MEDS: SCOPOLAMINE HYDROBROMIDE PATCH TD ONE (17:10)
[2023-11-16] MEDS: DIAZEPAM 10 MG/2 ML INJ SYRINGE IV SCH (17:55)
[2023-11-18] MEDS: MORPHINE 4 MG/ML SYR IV SCH ×2 (14:00→17:39)
[2023-11-18] MEDS: DIAZEPAM 10 MG/2 ML INJ SYRINGE IV SCH (17:39)
--- NOTE | 2023-11-19 15:22 | P.PN ---
Subjective Date of Service: 11/17/23 Patient comfortable no distress Review of Systems is unable to be obtained Physical Examination - Vital Signs Temperature: 96.8 F Blood Pressure: 133/58 Pulse: 77 Respirations: 12 Pulse Ox (%): 91 - Physical Exam General: Unresponsive Assessment & Plan - Problems (Diagnosis) (1) Palliative care patient Current Visit: Yes Status: Acute (2) Hospice care patient Current Visit: Yes Status: Acute (3) Acute hypoxic respiratory failure Current Visit: No Status: Acute (4) Cardiac arrest Current Visit: No Status: Acute - Plan Palliative measures. Patient will be given morphine and Ativan as needed. Continue with hospice care at this time. Discharge Plan: Other Plan to discharge in: Greater than 2 days - Advance Directives Does patient have a Living Will: No Does patient have a Durable POA for Healthcare: No - Code Status/Comfort Care Code Status Assessed: Yes Code Status: Do Not Attempt Resuscitat Comfort Measures: Hospice Care Critical Care: No Time Spent Managing PTS Care (In Minutes): 20
--- NOTE | 2023-11-19 15:23 | P.PN ---
Date of Service: 11/18/23 Subjective Patient comfortable no distress Physical Examination - Vital Signs reviewed - Physical Exam General: Unresponsive Assessment & Plan - Problems (Diagnosis) (1) Palliative care patient Current Visit: Yes Status: Acute (2) Hospice care patient Current Visit: Yes Status: Acute (3) Acute hypoxic respiratory failure Current Visit: No Status: Acute (4) Cardiac arrest Current Visit: No Status: Acute - Plan Palliative measures. Patient will be given morphine and Ativan as needed. Continue with hospice care at this time. Discharge Plan: Other Plan to discharge in: Greater than 2 days - Code Status/Comfort Care Code Status Assessed: Yes Code Status: Do Not Attempt Resuscitat Comfort Measures: Hospice Care Critical Care: No Time Spent Managing PTS Care (In Minutes): 20
--- NOTE | 2023-11-19 15:24 | P.PN ---
Date of Service: 11/19/23 Subjective Patient without any new changes. Patient remains in distress. Comfort measures are in place. Physical Examination - Vital Signs reviewed - Physical Exam General: Unresponsive Assessment & Plan - Problems (Diagnosis) (1) Palliative care patient Current Visit: Yes Status: Acute (2) Hospice care patient Current Visit: Yes Status: Acute (3) Acute hypoxic respiratory failure Current Visit: No Status: Acute (4) Cardiac arrest Current Visit: No Status: Acute - Plan Continue with palliative measures at this time. Continue with anxiolytics and pain medication as tolerated. Discharge Plan: Other Plan to discharge in: Greater than 2 days - Code Status/Comfort Care Code Status Assessed: Yes Code Status: Do Not Attempt Resuscitation Comfort Measures: Hospice Care Critical Care: No Time Spent Managing PTS Care (In Minutes): 20
[2023-11-19] MEDS: DIAZEPAM 10 MG/2 ML INJ SYRINGE IV SCH (17:08)
[2023-11-19] MEDS: SCOPOLAMINE HYDROBROMIDE PATCH TD ONE (17:08)
[2023-11-19] MEDS ORDERED: IPRATROPIUM BROM 0.5MG/2.5ML NEB PRN (19:54)
[2023-11-19] MEDS ORDERED: ALBUTEROL 2.5 MG/3 ML NEB SOL NEB PRN (19:54)
[2023-11-19] MEDS: MORPHINE 4 MG/ML SYR IV SCH (20:00)
[2023-11-19 23:32] VITALS: O2SAT 91
[2023-11-20 20:55] VITALS: BP 86/40; TEMP 96.4
== END 2023-11-20 20:47 | disposition hospice, home (50) | DRG 951 ==
LOC: 4TH 15:10
PROVIDERS: ADMIT Internal Medicine; ATTEND Hospitalist
DX: Z51.5 Encounter for palliative care (principal)
CPT/HCPCS: 82947; J2270; J3360